=== PATIENT | female | born 1940 | race Caucasian/White ===

== ENCOUNTER 2019-07-01 11:07 | Outpatient (RCR) | payer MEDICARE, SELFPAY ==
[2019-04-28 15:43] LABS: INR 1.9; Prothrombin Time 19.7 Seconds (9.64-11.0)
[2019-05-18 16:43] LABS: INR 3.1; Prothrombin Time 32.1 Seconds (9.64-11.0)
[2019-07-01 11:27] LABS: INR 2.4; Prothrombin Time 25.3 Seconds (9.64-11.0)
== END 2019-07-27 23:59 | disposition home or self-care (01) ==
LOC: CHSLAB 11:07
PROVIDERS: PCP Internal Medicine; Visit Provider Internal Medicine
DX: Z79.01 Long term (current) use of anticoagulants (principal)
CPT/HCPCS: 36415; 81003; 85610; 87086

== ENCOUNTER 2019-08-18 11:23 | Outpatient (CLI) | payer MEDICARE, SELFPAY ==
[2019-08-18 11:36] LABS: Basophils Absolute Auto 0.05 K/mm3 (0.00-0.10); Basophils Percent Auto 0.8 % (0.0-1.0); Eosinophils Absolute Auto 0.19 K/mm3 (0.02-0.50); Eosinophils Percent Auto 3.2 % (1.0-6.0); Hematocrit 43.3 % (35.0-42.0); Hemoglobin 14.1 g/dL (11.7-13.8); Immature Granulocyte Absolute 0.01 K/mm3 (0.00-0.00); Immature Granulocyte Percent A 0.2 % (0.0-0.0); Lymphocytes Absolute Auto 2.07 K/mm3 (1.10-4.50); Lymphocytes Percent Auto 34.4 % (18.0-42.0); Mean Corpuscular HGB Conc 32.6 g/dL (32.0-36.0); Mean Corpuscular Hemoglobin 29.4 pg (27.0-31.0); Mean Corpuscular Volume 90.4 fL (78.0-102.0); Mean Platelet Volume 11.2 fl (9.2-11.8); Monocytes Absolute Auto 0.86 K/mm3 (0.10-0.90); Monocytes Percent Auto 14.3 % (2.0-11.0); Neutrophils Absolute Auto 2.8 K/mm3 (1.7-7.2); Neutrophils Percent Auto 47.1 % (50.0-70.0); Platelet Count Result 212 K/mm3 (150-420); Red Blood Count 4.79 M/mm3 (4.20-5.40); Red Cell Distribution Width 13.9 % (11.6-14.4)
[2019-08-18 11:49] LABS: INR 1.9; Prothrombin Time 19.1 Seconds (9.64-11.0)
[2019-08-18 12:16] LABS: Alanine Aminotransferase 21 U/L (14-59); Albumin Level 3.9 g/dL (3.4-5.0); Alkaline Phosphatase 69 U/L (46-116); Amylase 22 U/L (25-115); Anion Gap 9.6 mmol/L (7-16); Aspartate Amino Transferase 21 U/L (15-37); Bilirubin,Total 0.5 mg/dL (0.00-1.00); Blood Urea Nitrogen 23 mg/dL (7-18); Carbon Dioxide 33 mmol/L (21-32); Chloride 103 mmol/L (98-108); Estimated Glomerular Filt Rate 56; Glucose 102 mg/dL (70-99); Lipase 75 U/L (73-393); Osmolality Calculated 297 mOsm/kg (285-295); Potassium 3.6 mmol/L (3.5-5.1); Sodium 142 mmol/L (136-145); Total Protein 7.5 g/dL (6.4-8.2)
[2019-08-18 12:24] LABS: CRP < 0.2 mg/dL (0.0-0.9)
== END 2019-08-18 11:24 | disposition home or self-care (01) ==
LOC: CHSLAB 11:25
PROVIDERS: PCP Internal Medicine; Visit Provider Internal Medicine
DX: R10.9 Unspecified abdominal pain (principal); M25.50 Pain in unspecified joint; Z79.01 Long term (current) use of anticoagulants
CPT/HCPCS: 36415; 80053; 82150; 83690; 85025; 85610; 86140

== ENCOUNTER 2019-10-25 10:22 | Emergency (ER) | payer MEDICARE, SELFPAY ==
--- NOTE | ~2019-10-25 | XR_ITS ---
XR lumbar spine 2-3V 10/25/2019 11:30 Indication: Sciatica Procedure: 3 views lumbar spine Comparison: No prior studies for comparison. Findings: There is disc narrowing at all lumbar levels, most advanced at L4-5 and L5-S1. Prominent br idging osteophytes anteriorly at T12-L1 through L3-4. No acute fracture or traumatic malalignment. Th ere is mild facet hypertrophy at L4-5 and L5-S1. No evidence for spondylolisthesis. There is atherosc lerosis of the aorta with a stent presumably in the left iliac artery. Impression: 1: Moderate lumbar spondylosis. Reviewed, dictated and finalized at location A. Impression: 1: Moderate lumbar spondylosis.
--- NOTE | ~2019-10-25 | XR_ITS ---
XR hip RT 2V w AP pelvis 10/25/2019 11:29 Indication: Right hip pain Procedure: 3 views right hip Comparison: Comparison to multiple prior studies sequentially, with oldest reviewed study dated 03/19. Findings: Pelvic rings are intact. Sacral foramen are symmetric. No acute fracture or traumatic malal ignment. There is a vascular stent, presumably in the left iliac artery. Mild degenerative changes of the lower lumbar spine and hips. Impression: 1: No acute fracture. Reviewed, dictated and finalized at location A. Impression: 1: No acute fracture.
[2019-10-25] MEDS: KETOROLAC (*BKC) 60 MG/2 ML VIAL IM (11:03)
[2019-10-25 11:06] LABS: Hematocrit 38.2 % (35.0-42.0); Hemoglobin 12.7 g/dL (11.7-13.8); Mean Corpuscular HGB Conc 33.2 g/dL (32.0-36.0); Mean Corpuscular Hemoglobin 29.9 pg (27.0-31.0); Mean Corpuscular Volume 89.9 fL (78.0-102.0); Mean Platelet Volume 11.6 fl (9.2-11.8); Platelet Count Result 164 K/mm3 (150-420); Red Blood Count 4.25 M/mm3 (4.20-5.40); Red Cell Distribution Width 14.1 % (11.6-14.4); White Blood Count 6.3 K/mm3 (4.8-10.8)
[2019-10-25 11:15] VITALS: BP 162/75; PULSE 91; RESP 20; TEMP 36.6; O2SAT 95
[2019-10-25 11:22] LABS: Alanine Aminotransferase 19 U/L (14-59); Albumin Level 3.1 g/dL (3.4-5.0); Alkaline Phosphatase 65 U/L (46-116); Anion Gap 12.3 mmol/L (7-16); Aspartate Amino Transferase 19 U/L (15-37); Bilirubin,Total 0.4 mg/dL (0.00-1.00); Blood Urea Nitrogen 13 mg/dL (7-18); Calcium 8.8 mg/dL (8.5-10.1); Carbon Dioxide 29 mmol/L (21-32); Chloride 103 mmol/L (98-108); Estimated Glomerular Filt Rate > 60; Glucose 118 mg/dL (70-99); Osmolality Calculated 293 mOsm/kg (285-295); Potassium 3.3 mmol/L (3.5-5.1); Sodium 141 mmol/L (136-145); Total Protein 6.3 g/dL (6.4-8.2)
[2019-10-25 11:23] LABS: Prothrombin Time 63.6 Seconds (9.64-11.0)
[2019-10-25 11:25] LABS: INR 6.6
--- NOTE | 2019-10-25 11:34 | ED.EXTPRO ---
HPI - Extremity Problem General Chief complaint: Extremity Problem,Nontraumatic Stated complaint: right leg pain Source: patient Mode of arrival: ambulatory Limitations: no limitations History of Present Illness HPI Narrative: 78-year-old female presents with some right lower extremity pain with some lower back pain has been chronic with no known injuries her current pain level she states is a 10/10, with no known injuries has a history of peripheral vascular disease has a stent femoral artery, has a good brisk pulse on the on the right with good range of motion on the right painful and tender with palpation and movement. Patient has been having increased bruising neuro upper arms and is on Coumadin at3.5mg daily. Complaint: extremity pain Onset (ago): day(s) Pain Consistency: intermittent Location: right and lower extremity Severity scale (1-10): 10 Quality: aching Radiation: none Relieving factors: rest Exacerbating factors: range of motion, weight bearing, walking and palpation Associated symptoms: denies other symptoms Related Data Home Medications Medication Instructions Recorded Confirmed alprazolam 1 mg PO PRN PRN 10/25/19 10/25/19 benazepril 10 mg PO DAILY 10/25/19 10/25/19 escitalopram oxalate 5 mg PO DAILY 10/25/19 10/25/19 triamterene-hydrochlorothiazid 1 cap PO DAILY 10/25/19 10/25/19 warfarin 3.5 mg PO DAILY 10/25/19 10/25/19 Review of Systems Review of Systems: All systems reviewed & are unremarkable except as noted in HPI and below PMFSH Past Medical History Medical History Depression HTN (hypertension) Peripheral vascular disease Family History Family History Other Family history of arthritis Family history of mental disorder Hypertension Social History Social History Smoking status: Never smoker Alcohol intake: current Exam Const: General: no acute distress and alert Orientation/consciousness: patient oriented x3 HENMT: Head: normal to inspection Eyes: Conjunctivae: conjunctivae normal Pupils: Equal, round and reactive pupils present Neck: Neck: normal visual inspection and no lymphadenopathy Chest: Chest palpation & inspection: normal inspection of the chest Resp: Effort & Inspection: normal respiratory effort Auscultation: clear to auscultation bilaterally Cardio: Rate: regular rate Rhythm: regular rhythm GI: GI Palp: Yes Soft to palpation Percussion: Yes normal to percussion : General: Yes no CVA tenderness Skin: Other: bruising Neuro: General: patient oriented x3 and moves all extremities Extrem: General: normal to inspection Other: pain right hip with some leg movement and palpation Psych: Appearance: grossly normal Mental Status: mental status grossly normal Affect: normal affect Attitude: cooperative Thought content: Yes Normal thought content present Course Course Emergency Course: patient received pain medication and states her pain has improved, had an INR that was 6.6 and receive 10 mg of vitamin K subcutaneously. Vital Signs Vital signs: Vital Signs Temperature 36.6 C 10/25/19 11:15 Pulse Rate 91 10/25/19 11:15 Respiratory Rate 10/25/19 11:15 Blood Pressure 162/75 H 10/25/19 11:15 Pulse Oximetry 95 10/25/19 11:15 Temperature 36.6 C 10/25/19 11:15 Pulse Rate 91 10/25/19 11:15 Respiratory Rate 10/25/19 11:15 Blood Pressure 162/75 H 10/25/19 11:15 Pulse Oximetry 95 10/25/19 11:15 MDM - Extremity (Nontraumatic) Lab Data Result diagrams: 10/25/19 11:00 10/25/19 11:00 Labs: Lab Results 10/25/19 10/25/19 10/25/19 Range/Units 11:00 11:00 11:00 WBC 6.3 (4.8-10.8) K/mm3 RBC 4.25 (4.20-5.40) M/mm3 Hgb 12.7 (11.7-13.8) g/dL Hct 38.2 (35.0-42.0) % MCV 89.9 (78.0-102.0) f
[2019-10-25] MEDS: PHYTONADIONE INJ 10 MG/ML AMP SUB-Q (11:41)
[2019-10-25 12:05] VITALS: BP 130/67
== END 2019-10-25 12:07 | disposition home or self-care (01) ==
PROVIDERS: Emergency Provider Emergency Medicine; PCP Internal Medicine
DX: S73.101A Unspecified sprain of right hip, initial encounter (principal); R79.1 Abnormal coagulation profile
CPT/HCPCS: 36415; 72100; 73502; 80053; 85027; 85610; 96374; 99282; 99284; J1885; J3430

== ENCOUNTER 2020-01-15 10:00 | Outpatient (RCR) | payer MEDICARE, SELFPAY ==
[2019-11-02 15:57] LABS: INR 1.6; Prothrombin Time 16.5 Seconds (9.64-11.0)
[2019-12-17 11:12] LABS: INR 4.5; Prothrombin Time 44.3 Seconds (9.64-11.0)
[2020-01-15 10:20] LABS: INR 3.6; Prothrombin Time 35.9 Seconds (9.64-11.0)
== END 2020-01-31 23:59 | disposition home or self-care (01) ==
LOC: CHSLAB 10:00
PROVIDERS: PCP Internal Medicine; Visit Provider Internal Medicine
DX: Z79.01 Long term (current) use of anticoagulants (principal)
CPT/HCPCS: 36415; 85610

== ENCOUNTER 2020-01-29 13:53 | Outpatient (CLI) | payer MEDICARE, SELFPAY ==
--- NOTE | ~2020-01-29 | XR_ITS ---
EXAMINATION: XR foot RT min 3V, XR ankle RT 2V DATE: 01/29/2020 14:30 INDICATION: Diffuse right foot and ankle pain and instability TECHNIQUE: 1. Anteroposterior and mortise views of the right ankle were obtained. 2. Dorsoplantar, oblique and lateral views of the right foot were obtained. COMPARISON: None. FINDINGS: Alignment of the foot and ankle is normal. No fracture identified although sensitivity for nondisplac ed fractures is mildly decreased by prominent diffuse osteopenia. 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 Small Achilles and plantar calcaneal spurs. Small amount o f heterotopic ossification projecting over the Achilles tendon approximately 6 cm proximal to its rosa m caneal insertion which may be related to old trauma. Soft tissues are unremarkable. No ankle joint ef fusion. IMPRESSION: 1. Mild degenerative skeletal changes. No acute osseous abnormality. 2. Diffuse osteopenia. Reviewed, dictated and finalized at location A. IMPRESSION: 1. Mild degenerative skeletal changes. No acute osseous abnormality. 2. Diffuse osteopenia.
== END 2020-01-29 13:54 | disposition home or self-care (01) ==
LOC: CHSIMG 13:56
PROVIDERS: PCP Internal Medicine; Visit Provider Podiatrist
DX: M79.671 Pain in right foot (principal); M25.571 Pain in right ankle and joints of right foot; M25.371 Other instability, right ankle
CPT/HCPCS: 73600; 73630

== ENCOUNTER 2020-02-05 02:24 | Emergency (ER) | payer MEDICARE, SELFPAY ==
[2020-02-05 02:34] VITALS: BP 137/78; PULSE 98; RESP 20; TEMP 36.9; O2SAT 96
--- NOTE | 2020-02-05 02:57 | ED.LOWEXIN ---
HPI - Extremity Injury (Lower) General Chief Complaint: Extremity Injury, Lower Stated Complaint: Right Hip Pain Source: patient Mode of arrival: ambulatory Limitations: no limitations History of Present Illness HPI Narrative: This is an 79-year-old female with chronic hip pain has been seeing pain management for her right hip pain has had some steroid injections in her right hip and knee. Woke up with some right hip pain with no known injury has good range of motion there is some tenderness with palpation no internal or external rotation has good movement good range of motion of the right hip. MD complaint: hip injury Onset (ago): unknown Injury: Right: hip Severity: moderate Severity scale (1-10): 6 Relieving factors: immobilization Exacerbating factors: movement Related Data Home Medications Medication Instructions Recorded Confirmed alprazolam 1 mg PO PRN PRN 10/25/19 02/05/20 benazepril [Lotensin] 10 mg PO DAILY 10/25/19 02/05/20 triamterene-hydrochlorothiazid 1 cap PO DAILY 10/25/19 02/05/20 [Dyazide] warfarin 3 mg PO DAILY 10/25/19 02/05/20 levofloxacin 250 mg PO DAILY 02/05/20 02/05/20 Allergies Allergy/AdvReac Type Severity Reaction Status Date / Time No Known Allergies Allergy Verified 02/05/20 02:30 Review of Systems Review of Systems: All systems reviewed & are unremarkable except as noted in HPI and below PMFSH Social History Social History Smoking status: Never smoker Alcohol intake: current Gender identity (if verbalized by the patient): Female Exam Const: General: no acute distress and alert Orientation/consciousness: patient oriented x3 HENMT: Head: normal to inspection Eyes: Conjunctivae: conjunctivae normal Pupils: Equal, round and reactive pupils present EOM: EOMs intact bilaterally Neck: Neck: normal visual inspection, no lymphadenopathy and no meningeal signs Chest: Chest palpation & inspection: normal inspection of the chest Resp: Effort & Inspection: normal respiratory effort Auscultation: clear to auscultation bilaterally Cardio: Rate: regular rate Rhythm: regular rhythm GI: GI Palp: Yes Soft to palpation Back/Spine/Pelvis: Back: no CVA tenderness Skin: General skin exam: normal color Rashes: no rashes Neuro: General: patient oriented x3, moves all extremities, no meningeal signs and no focal motor deficits Extrem: Other: Right lateral hip tenderness with palpation Psych: Appearance: grossly normal Mental Status: mental status grossly normal Affect: normal affect Course Course Emergency Course: patient receive IM Toradol with some moderate relief Vital Signs Vital signs: Vital Signs Temperature 36.9 C 02/05/20 02:34 Pulse Rate 98 02/05/20 02:34 Respiratory Rate 20 02/05/20 02:34 Blood Pressure 137/78 02/05/20 02:34 Pulse Oximetry 96 02/05/20 02:34 Temperature 36.9 C 02/05/20 02:34 Pulse Rate 98 02/05/20 02:34 Respiratory Rate 20 02/05/20 02:34 Blood Pressure 137/78 02/05/20 02:34 Pulse Oximetry 96 02/05/20 02:34 Critical Care Time Critical Care Time Critical Care Time: No Discharge Plan Discharge Clinical Impression: Chronic hip pain Qualifiers: Laterality: right Qualified Code(s): M25.551 - Pain in right hip Patient Disposition: Home, Self-Care Condition: Stable Instructions: Antibiotic Form Additional Instructions: follow-up with primary care physician / pain management physician as soon as possible further evaluation and treatment. Prescriptions: New oxycodone-acetaminophen [Percocet] 5-325 mg tablet 1 tablet PO Q6H PRN (Reason: pain) Qty: 20 RF: 0 No Action alprazolam 1 mg tablet 1 mg PO PRN PRN (Reason: Anxiety) RF: 0 triamterene-hydrochlorothiazid [Dyazide] 37.5-25 mg capsule 1 cap PO DAILY RF: 0 warfarin 3 mg tablet 3 mg PO DAILY RF: 0 benazepril [Lotensin] 10 mg tablet 10 mg PO
[2020-02-05] MEDS: KETOROLAC (*BKC) 60 MG/2 ML VIAL IM (03:10)
[2020-02-05 03:42] VITALS: BP 120/70; PULSE 86; RESP 20; O2SAT 98
== END 2020-02-05 03:44 | disposition home or self-care (01) ==
PROVIDERS: Emergency Provider Emergency Medicine; PCP Internal Medicine
DX: M25.551 Pain in right hip (principal)
CPT/HCPCS: 96372; 99283; J1885

== ENCOUNTER 2020-04-25 09:20 | Outpatient (RCR) | payer MEDICARE, SELFPAY ==
[2020-02-13 09:19] LABS: INR 2.8; Prothrombin Time 27.9 Seconds (9.64-11.0)
[2020-03-24 10:28] LABS: INR 2.7; Prothrombin Time 26.6 Seconds (9.64-11.0)
[2020-04-25 09:38] LABS: INR 1.5; Prothrombin Time 15.7 Seconds (9.64-11.0)
== END 2020-05-13 23:59 | disposition home or self-care (01) ==
LOC: CHSLAB 09:20
PROVIDERS: PCP Internal Medicine; Visit Provider Internal Medicine
DX: Z79.01 Long term (current) use of anticoagulants (principal)
CPT/HCPCS: 36415; 85610

== ENCOUNTER 2020-05-13 08:33 | Outpatient (CLI) | payer MEDICARE, SELFPAY ==
[2020-05-13 08:44] LABS: Basophils Absolute Auto 0.05 K/mm3 (0.00-0.10); Basophils Percent Auto 0.8 % (0.0-1.0); Eosinophils Absolute Auto 0.11 K/mm3 (0.02-0.50); Eosinophils Percent Auto 1.8 % (1.0-6.0); Hematocrit 41.5 % (35.0-42.0); Hemoglobin 13.4 g/dL (11.7-13.8); Immature Granulocyte Absolute 0.02 K/mm3 (0.00-0.00); Immature Granulocyte Percent A 0.3 % (0.0-0.0); Lymphocytes Percent Auto 41.6 % (18.0-42.0); Mean Corpuscular HGB Conc 32.3 g/dL (32.0-36.0); Mean Platelet Volume 11.4 fl (9.2-11.8); Monocytes Absolute Auto 0.73 K/mm3 (0.10-0.90); Monocytes Percent Auto 12.1 % (2.0-11.0); Neutrophils Absolute Auto 2.6 K/mm3 (1.7-7.2); Neutrophils Percent Auto 43.4 % (50.0-70.0); Platelet Count Result 183 K/mm3 (150-420); Red Blood Count 4.46 M/mm3 (4.20-5.40); Red Cell Distribution Width 13.2 % (11.6-14.4)
[2020-05-13 08:58] LABS: INR 1.9; Partial Thromboplastin Time 32.2 SEC (22.3-31.6); Prothrombin Time 18.9 Seconds (9.64-11.0)
[2020-05-13 09:10] LABS: Add Urine Microscopic? YES; Appearance Urine Clear (Clear); Bacteria Urine 1+ /hpf; Bilirubin Urine Negative (Negative); Blood Urine Negative (Negative); Color Urine Yellow (Yellow); Glucose Urine UA Negative (Negative); Ketones Urine Negative (Negative); Leukocyte Esterase Ur 1+ (Negative); Nitrate Urine Negative (Negative); Protein Urine Negative (Negative); Specific Grav Ur 1.025 (1.010-1.020); Squamous Epithelial Cell Urine Few /hpf (Few); Urobilinogen Urine 0.2 mg/dL (0.2-1.0)
[2020-05-13 09:43] LABS: Alanine Aminotransferase 25 U/L (14-59); Albumin Level 3.1 g/dL (3.4-5.0); Alkaline Phosphatase 55 U/L (46-116); Anion Gap 6 mmol/L (8-16); Aspartate Amino Transferase 15 U/L (15-37); Bilirubin,Total 0.3 mg/dL (0.00-1.00); Blood Urea Nitrogen 14 mg/dL (7-18); Calcium 8.7 mg/dL (8.5-10.1); Carbon Dioxide 32 mmol/L (21-32); Chloride 109 mmol/L (98-108); Estimated Glomerular Filt Rate > 60; Glucose 87 mg/dL (70-99); Osmolality Calculated 303 mOsm/kg (285-295); Potassium 4.5 mmol/L (3.5-5.1); Sodium 147 mmol/L (136-145); Total Protein 6.3 g/dL (6.4-8.2)
== END 2020-05-13 08:34 | disposition home or self-care (01) ==
LOC: CHSLAB 08:34
PROVIDERS: PCP Internal Medicine; Visit Provider Internal Medicine
DX: Z79.01 Long term (current) use of anticoagulants (principal); I10 Essential (primary) hypertension; R82.90 Unspecified abnormal findings in urine
CPT/HCPCS: 36415; 80053; 81001; 84443; 85025; 85610; 85730; 87077; 87086; 87088; 87186

== ENCOUNTER 2020-06-15 11:27 | Outpatient (CLI) | payer MEDICARE, SELFPAY ==
[2020-06-15 11:53] LABS: INR 2.6; Prothrombin Time 27.6 Seconds (9.50-12.10)
[2020-06-15 12:42] LABS: Alanine Aminotransferase 21 U/L (14-59); Albumin Level 3.4 g/dL (3.4-5.0); Alkaline Phosphatase 62 U/L (46-116); Anion Gap 5 mmol/L (8-16); Aspartate Amino Transferase 17 U/L (15-37); Bilirubin,Total 0.4 mg/dL (0.00-1.00); Blood Urea Nitrogen 12 mg/dL (7-18); Calcium 9.1 mg/dL (8.5-10.1); Carbon Dioxide 31 mmol/L (21-32); Chloride 107 mmol/L (98-108); Estimated Glomerular Filt Rate > 60; Glucose 91 mg/dL (70-99); Osmolality Calculated 295 mOsm/kg (285-295); Sodium 143 mmol/L (136-145); Total Protein 6.5 g/dL (6.4-8.2)
== END 2020-06-15 11:28 | disposition home or self-care (01) ==
LOC: CHSLAB 11:29
PROVIDERS: PCP Internal Medicine; Visit Provider Internal Medicine
DX: E87.1 Hypo-osmolality and hyponatremia (principal); Z79.01 Long term (current) use of anticoagulants
CPT/HCPCS: 36415; 80053; 85610

== ENCOUNTER 2020-10-15 11:25 | Emergency (ER) | payer MEDICARE, SELFPAY ==
--- NOTE | ~2020-10-15 | CT_ITS ---
EXAMINATION: CT cervical spine wo con DATE: 10/15/2020 12:21 INDICATION: Head injury. TECHNIQUE: Computed tomography (CT) of the cervical spine was performed without intravenous contrast. Automated exposure control and iterative reconstruction technique were employed. The dose-length pro duct was 454.83 mGy-cm. COMPARISON: None FINDINGS: There is 2 mm anterolisthesis of C3 on C4 and C7 on T1. There is 4 degrees dextrocurvature of cervical spine. Vertebral body heights are normal. There is mildly decreased disc height at C3-C4, moderately decreased disc height at C4-C5, and mildly decreased disc height at C5-C6 and C6-C7. The following disc levels are specifically discussed: C2-C3: There is no uncovertebral joint osteoarthritis. There is moderate right and severe left facet joint osteoarthritis. There is mild left neural foraminal stenosis. There is no central canal stenosi s. C3-C4: There is mild right and severe left uncovertebral joint osteoarthritis. There is moderate righ t and severe left facet joint osteoarthritis. There is moderate left neural foraminal stenosis. There is mild central canal stenosis. C4-C5: There is severe bilateral uncovertebral joint osteoarthritis. There is mild right and moderate left facet joint osteoarthritis. There is moderate right and mild left neural foraminal stenosis. Th ere is mild central canal stenosis. C5-C6: There is severe bilateral uncovertebral joint osteoarthritis. There is moderate right and mild left facet joint osteoarthritis. There is mild bilateral neural foraminal stenosis. There is mild ce ntral canal stenosis. C6-C7: There is severe bilateral uncovertebral joint osteoarthritis. There is mild right and severe l eft facet joint osteoarthritis. There is moderate right and mild left neural foraminal stenosis. Ther e is mild central canal stenosis. C7-T1: There is no uncovertebral joint osteoarthritis. There is severe bilateral facet joint osteoart hritis. There is mild bilateral neural foraminal stenosis. There is no central canal stenosis. IMPRESSION: 1. No fracture. 2. Moderate cervical spondylosis. Reviewed, dictated and finalized at location A.
--- NOTE | ~2020-10-15 | CT_ITS ---
EXAMINATION: CT facial bones wo con DATE: 10/15/2020 12:23 INDICATION: Head injury. TECHNIQUE: Computed tomography (CT) of the facial bones and maxillofacial region was performed withou t intravenous contrast. Automated exposure control and iterative reconstruction technique were employ ed. The dose-length product was 290.42 mGy-cm. COMPARISON: None. FINDINGS: There are likely changes of ocular lens replacement surgeries. There is mild leftward devia tion of the nasal septum. No fracture. The paranasal sinuses are clear. There are lucencies around th e roots of tooth 19 and tooth 28. There are restorations of the crowns of these teeth. IMPRESSION: 1. No fracture. 2. Dental disease. Reviewed, dictated and finalized at location A.
--- NOTE | ~2020-10-15 | XR_ITS ---
EXAMINATION: XR shoulder LT min 2V DATE: 10/15/2020 12:22 INDICATION: Left shoulder injury. TECHNIQUE: 4 views of left shoulder were obtained. COMPARISON: None. FINDINGS: Bone alignment is normal. No fracture. There is mild osteoarthritis of glenohumeral joint a nd moderate osteoarthritis of acromioclavicular joint. IMPRESSION: 1. Polyarticular osteoarthritis. Reviewed, dictated and finalized at location A.
--- NOTE | ~2020-10-15 | CT_ITS ---
EXAMINATION: CT brain wo con DATE: 10/15/2020 12:21 INDICATION: Head injury. TECHNIQUE: Computed tomography (CT) of the head was performed without intravenous contrast. The mA wa s adjusted according to patient size. Iterative reconstruction technique was employed. The dose-lengt h product was 681.00 mGy-cm. COMPARISON: Head CT 12/04/2017 FINDINGS: There are scattered areas of low attenuation in the cerebral white matter. There is no intr acranial hemorrhage, acute infarction, or abnormal intracranial mass lesion. The ventricles are mak l in size. There are likely changes of ocular lens replacement surgeries. The paranasal sinuses are c lear. The mastoid air cells are normal. IMPRESSION: 1. Stable moderate nonspecific cerebral white matter disease, which likely represents chronic small v essel ischemic disease. Reviewed, dictated and finalized at location A. IMPRESSION: 1. Stable moderate nonspecific cerebral white matter disease, which likely repr esents chronic small vessel ischemic disease.
[2020-10-15 11:45] VITALS: BP 143/75; PULSE 71; RESP 18; TEMP 36.4; O2SAT 96
--- NOTE | 2020-10-15 12:32 | ED.FALL ---
HPI - Fall General Chief Complaint: Fall Stated Complaint: Fall, L ear, L arm and L hip pain Source: patient Mode of arrival: ambulatory Limitations: no limitations History of Present Illness HPI Narrative: this an 79-year-old female that presents after she fell at home earlier today after she went outside to get her mail as she stepped in to the how she lost her balance and struck the side of her head causing some ear pain with some some neck pain along with some left shoulder pain. The patient did not lose consciousness there is no dizziness no syncopal episode no palpitations no chest pain no shortness of breath. The patient states that she has some mild to moderate left ear pain with no bleeding and she states that she is having some left shoulder pain but has good range of motion in her neck and her arm and shoulder with no bruising no bleeding and good range of motion. complaint: fall Onset (ago): hour(s) Fall from: standing Fall witnessed: no Place fall occurred: home Loss of consciousness: none Prolonged down time: no Symptoms prior to fall: other ( pain) Context: tripped/slipped Location of injury: head and other ( left shoulder) Location of injury - extremities: Left: shoulder Related Data Home Medications Medication Instructions Recorded Confirmed alprazolam 1 mg PO PRN PRN 10/25/19 10/15/20 benazepril [Lotensin] 10 mg PO DAILY 10/25/19 10/15/20 warfarin 3 mg PO DAILY 10/25/19 10/15/20 aspirin [Adult Aspirin] 81 mg PO DAILY 10/15/20 10/15/20 furosemide 20 mg PO DAILY 10/15/20 10/15/20 rosuvastatin 10 mg PO DAILY 10/15/20 10/15/20 Allergies Allergy/AdvReac Type Severity Reaction Status Date / Time prednisone AdvReac Dizziness Verified 10/15/20 11:41 Review of Systems Review of Systems: All systems reviewed & are unremarkable except as noted in HPI and below PMFSH Past Medical History Medical History (Updated 10/15/20 @ 12:57 by Christofer Huizar MD) Depression HTN (hypertension) Peripheral vascular disease Family History Family History Other Family history of arthritis Family history of mental disorder Hypertension Social History Social History Smoking status: Never smoker Alcohol intake: current Gender identity (if verbalized by the patient): Female Exam Const: General: no acute distress and alert Orientation/consciousness: patient oriented x3 HENMT: Head: normal to inspection Face and sinus: normal facial exam Eyes: Conjunctivae: conjunctivae normal Pupils: Equal, round and reactive pupils present EOM: EOMs intact bilaterally Direct Ophthalmoscopy: no photophobia Neck: Neck: normal visual inspection, no lymphadenopathy and no meningeal signs Chest: Chest palpation & inspection: normal inspection of the chest Resp: Effort & Inspection: normal respiratory effort Auscultation: clear to auscultation bilaterally Cardio: Rate: regular rate Rhythm: regular rhythm GI: Auscultation: normal bowel sounds : General: Yes no CVA tenderness Back/Spine/Pelvis: Back: no CVA tenderness Neuro: General: patient oriented x3 and moves all extremities Extrem: General: normal to inspection and no pedal edema Psych: Mental Status: mental status grossly normal Affect: normal affect Attitude: cooperative Thought content: Yes Normal thought content present Course Course Emergency Course: X-rays reviewed with patient after reassessment patient is doing better and advised to follow-up with her primary care physician within 1 to 2 weeks for further evaluation and treatment. Vital Signs Vital signs: Vital Signs Temperature 36.4 C L 10/15/20 11:45 Pulse Rate 71 10/15/20 11:45 Respiratory Rate 18 10/15/20 11:45 Blood Pressure 143/75 H 10/15/20 11:45 Pulse Oximetry 96 10/15/20 11:45 Temperature 36.4 C L 10/15/20 11:45 Pulse Rate 71 10/15/20 1
== END 2020-10-15 13:06 | disposition home or self-care (01) ==
PROVIDERS: Emergency Provider Emergency Medicine; PCP Internal Medicine
DX: S40.022A Contusion of left upper arm, initial encounter (principal); W19.XXXA Unspecified fall, initial encounter
CPT/HCPCS: 70450; 70486; 72125; 73030; 99282; 99284

== ENCOUNTER 2020-10-18 13:27 | Outpatient (RCR) | payer MEDICARE, SELFPAY ==
[2020-07-22 15:37] LABS: INR 2.4; Prothrombin Time 24.7 Seconds (9.50-12.10)
[2020-08-30 13:14] LABS: INR 1.9
[2020-10-18 13:47] LABS: Prothrombin Time 20.3 Seconds (9.50-12.10)
== END 2020-10-20 23:59 | disposition home or self-care (01) ==
LOC: CHSLAB 13:27
PROVIDERS: PCP Internal Medicine; Visit Provider Internal Medicine
DX: Z79.01 Long term (current) use of anticoagulants (principal)
CPT/HCPCS: 36415; 85610

== ENCOUNTER 2020-10-30 17:04 | Emergency (ER) | payer MEDICARE, SELFPAY ==
--- NOTE | ~2020-10-30 | XR_ITS ---
EXAMINATION: XR chest 1V portable DATE: 10/30/2020 18:30 INDICATION: Weakness. TECHNIQUE: A single frontal view of the chest was obtained. COMPARISON: Chest 2 views 02/13/2019 FINDINGS: There is mild atelectasis in the lower lung zones. No pleural effusion or pneumothorax. The heart size is normal. IMPRESSION: 1. Mild atelectasis in the lower lung zones. Reviewed, dictated and finalized at location A.
--- NOTE | ~2020-10-30 | CT_ITS ---
EXAMINATION: CT brain wo con DATE: 10/30/2020 18:28 INDICATION: Weakness. TECHNIQUE: Computed tomography (CT) of the head was performed without intravenous contrast. The mA wa s adjusted according to patient size. Iterative reconstruction technique was employed. The dose-lengt h product was 681.00 mGy-cm. COMPARISON: Head CT 10/15/2020 FINDINGS: There are scattered areas of low attenuation in the cerebral white matter. There is no intr acranial hemorrhage, acute infarction, or abnormal intracranial mass lesion. The ventricles are mak l in size. There is mild mucosal thickening in the ethmoid sinuses. There are likely changes of ocula r lens replacement surgeries. The mastoid air cells are normal. IMPRESSION: 1. Stable moderate nonspecific cerebral white matter disease, which likely represents chronic small v essel ischemic disease. Reviewed, dictated and finalized at location A. IMPRESSION: 1. Stable moderate nonspecific cerebral white matter disease, which likely repr esents chronic small vessel ischemic disease.
--- NOTE | ~2020-10-30 | CT_ITS ---
EXAMINATION: CT abdomen pelvis w con DATE: 10/30/2020 18:29 INDICATION: Left lower quadrant abdominal pain. TECHNIQUE: Computed tomography (CT) of the abdomen and pelvis was performed with 100 mL Omnipaque 350 intravenous contrast. Automated exposure control and iterative reconstruction technique were employe d. The dose-length product was 684.58 mGy-cm. COMPARISON: CT abdomen and pelvis 04/28/2019 FINDINGS: The visualized portions of the lung bases demonstrate mild atelectasis. No pleural effusion . The heart size is normal. There are coronary artery calcifications. There are calcifications of the aortic valve. No pericardial effusion. The liver, gallbladder, spleen, pancreas, and adrenal glands are normal. There is cortical thinning of the kidneys. There is a 3.7 cm cyst in right kidney. There is a totally occluded stent in left common iliac vein and inferior vena cava, stable from 04/28/19. 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 There is diverticulosis of the colon with out evidence of diverticulitis. The appendix is not visualized. There are no pathologically enlarged lymph nodes. There is no free intraperitoneal fluid. There is severe lumbar spondylosis. IMPRESSION: 1. No specific etiology for the patient's symptoms. Reviewed, dictated and finalized at location A.
[2020-10-30 17:05] VITALS: BP 129/73; PULSE 94; RESP 20; TEMP 36.8; O2SAT 93
--- NOTE | 2020-10-30 17:23 | ED.ABDPAIN ---
HPI - Abdominal Pain General Chief Complaint: Weakness Stated Complaint: ambulance Time Seen by Provider: 10/30/20 17:10 Source: patient Mode of arrival: ambulatory Limitations: no limitations History of Present Illness HPI narrative: Linda is brought in by ems. She complains of pain in LLQ for at least a week, states it has been more severe the last two days. Pain is dull, moderately severe to severe in left lower back, and also midline in the low back, with radiation around to left lower abdomen. This has been ongoing. She states she has a lot of chronic pain in her back, but this is much worse than normal. Nothing has decreased the left flank /side pain, or made her feel better. The back pain seems to a factor limiting her activity. There is no know precipitating cause. She also complains of weakness, generalized, but more severe in left leg ongoing for quite some time. She lives in her own home. She was given physical therapy in the past for this weakness, which seemed to help some. She is worried she may have had some bleeding from the Coumadin, after a fall, and requests evaluation for that, although she was seen for this. She denies any fever, chills, cough or symptoms of a urinary infection. Related Data Home Medications Medication Instructions Recorded Confirmed alprazolam 1 mg PO PRN PRN 10/25/19 10/30/20 benazepril [Lotensin] 10 mg PO DAILY 10/25/19 10/30/20 warfarin 3 mg PO DAILY 10/25/19 10/30/20 aspirin [Adult Aspirin] 81 mg PO DAILY 10/15/20 10/30/20 furosemide 20 mg PO DAILY 10/15/20 10/30/20 rosuvastatin 10 mg PO DAILY 10/15/20 10/30/20 Allergies Allergy/AdvReac Type Severity Reaction Status Date / Time prednisone AdvReac Dizziness Verified 10/15/20 11:41 Review of Systems Constitutional: Constitutional: Reports fatigue and Reports weakness Eyes: Eyes: Reports no additional eye complaints ENT: Reports system reviewed and no additional complaints, except as documented Cardiovascular: Cardiovascular: Reports no additional cardiovascular complaints Respiratory: Respiratory: Reports no additional respiratory complaints Gastrointestinal: Gastrointestinal: Reports no additional gastrointestinal complaints Genitourinary: Genitourinary: Reports no additional female genitourinary complaints Musculoskeletal: Comments: Low back pain Integumentary/Breasts: Skin/Breast: Reports system reviewed and no additional complaints, except as docu Neurologic: Reports system reviewed and no additional complaints, except as documented Psychiatric: Psychiatric: Reports no additional psychiatric complaints Endocrine: Endocrine: Reports no additional endocrine complaints Hematologic/Lymphatic: Hematologic/Lymphatic: Reports no additional hematologic/lymphatic complaints Allergic/Immunologic: Allergic/Immunologic: Reports no additional allergic/immunologic complaints PMFSH Past Medical History Medical History CAD (coronary artery disease) Depression DVT (deep venous thrombosis) HTN (hypertension) IBS (irritable bowel syndrome) Peripheral vascular disease Polio Surgical History Surgical History (Updated 10/31/20 @ 07:29 by Valentin Lucas MD) H/O: hysterectomy Stented coronary artery Family History Family History Other Family history of arthritis Family history of mental disorder Hypertension Social History Social History Smoking status: Never smoker Alcohol intake: current Gender identity (if verbalized by the patient): Female Exam Const: General: alert Orientation/consciousness: patient oriented x3 HENMT: Head: normal to inspection Ears: external ears normal and TM's normal bilaterally Mouth: Yes Normal oral and palatal mucosa present Throat: posterior oropharynx normal Eyes: Conjunctivae: conjunctivae normal Neck:
[2020-10-30 17:37] LABS: Basophils Absolute Auto 0.06 K/mm3 (0.00-0.10); Basophils Percent Auto 0.5 % (0.0-1.0); Eosinophils Absolute Auto 0.01 K/mm3 (0.02-0.50); Eosinophils Percent Auto 0.1 % (1.0-6.0); Hematocrit 39.7 % (35.0-42.0); Hemoglobin 13.2 g/dL (11.7-13.8); Immature Granulocyte Absolute 0.04 K/mm3 (0.00-0.00); Immature Granulocyte Percent A 0.4 % (0.0-0.0); Lymphocytes Absolute Auto 1.79 K/mm3 (1.10-4.50); Lymphocytes Percent Auto 16.1 % (18.0-42.0); Mean Corpuscular HGB Conc 33.2 g/dL (32.0-36.0); Mean Corpuscular Hemoglobin 29.5 pg (27.0-31.0); Mean Corpuscular Volume 88.8 fL (78.0-102.0); Mean Platelet Volume 10.7 fl (9.2-11.8); Monocytes Absolute Auto 1.25 K/mm3 (0.10-0.90); Monocytes Percent Auto 11.2 % (2.0-11.0); Neutrophils Percent Auto 71.7 % (50.0-70.0); Platelet Count Result 152 K/mm3 (150-420); Red Blood Count 4.47 M/mm3 (4.20-5.40); Red Cell Distribution Width 12.8 % (11.6-14.4); White Blood Count 11.1 K/mm3 (4.8-10.8)
[2020-10-30 17:49] LABS: Alanine Aminotransferase 21 U/L (14-59); Albumin Level 3.1 g/dL (3.4-5.0); Alkaline Phosphatase 48 U/L (46-116); Anion Gap 12 mmol/L (8-16); Aspartate Amino Transferase 16 U/L (15-37); Bilirubin,Total 0.9 mg/dL (0.00-1.00); Blood Urea Nitrogen 18 mg/dL (7-18); Calcium 8.8 mg/dL (8.5-10.1); Carbon Dioxide 25 mmol/L (21-32); Chloride 99 mmol/L (98-108); Estimated CRCL calculation 34 ml/min; Estimated Glomerular Filt Rate 50; Glucose 98 mg/dL (70-99); Osmolality Calculated 283 mOsm/kg (285-295); Potassium 3.7 mmol/L (3.5-5.1); Sodium 136 mmol/L (136-145); Total Protein 7.4 g/dL (6.4-8.2)
[2020-10-30 17:54] LABS: Lactic Acid Reflex 1.3 mmol/L (0.4-2.0)
[2020-10-30 17:59] LABS: Lipase 51 U/L (73-393)
--- NOTE | 2020-10-30 18:00 | PC.NURSE ---
pt resting per cot, daughter at bedside. unable to urinate at this time
[2020-10-30 18:16] LABS: Magnesium 1.5 mg/dL (1.8-2.4)
[2020-10-30 18:21] LABS: INR 1.5; Partial Thromboplastin Time 28.3 SEC (23.90-30.70); Prothrombin Time 15.7 Seconds (9.50-12.10)
[2020-10-30 18:36] LABS: Erythrocyte Sedimentation Rate 44 mm/hr (0-20)
[2020-10-30 18:39] LABS: Add Urine Microscopic? YES; Bilirubin Urine Negative (Negative); Blood Urine Negative (Negative); Color Urine Yellow (Yellow); Glucose Urine UA Negative (Negative); Ketones Urine 2+ (Negative); Leukocyte Esterase Ur Negative (Negative); Nitrate Urine Negative (Negative); Protein Urine Negative (Negative); Urobilinogen Urine 0.2 mg/dL (0.2-1.0)
[2020-10-30 18:42] LABS: Appearance Urine Sl Cloudy (Clear); Bacteria Urine Trace /hpf; RBC Urine None seen /hpf (0-2); Squamous Epithelial Cell Urine Moderate /hpf (Few); WBC Urine None seen /hpf (0-3)
--- NOTE | 2020-10-30 19:10 | PC.NURSE ---
1900 pt incontinent of urine, skin care given, pull up brief applied per pt request. gown and linen changed
[2020-10-30 19:17] VITALS: BP 121/68; PULSE 86; RESP 20; O2SAT 94
[2020-10-30] MEDS: DEXAMETHASONE SOD PHOS INJ 4 MG/ML VIAL IV PUSH (19:25)
[2020-10-30] MEDS: MAGNESIUM SULF 2 GM/WATER 50ML 2 GM/50 ML BAG IVPB (19:25)
[2020-10-30] MEDS: CEPHALEXIN 500 MG CAPSULE PO (19:32)
[2020-10-30 20:03] VITALS: BP 130/73; PULSE 73; RESP 20; TEMP 36.9; O2SAT 94
== END 2020-10-30 20:22 | disposition home or self-care (01) ==
PROVIDERS: Emergency Provider Emergency Medicine; PCP Internal Medicine
DX: M54.9 Dorsalgia, unspecified (principal); E83.42 Hypomagnesemia; J98.11 Atelectasis; R53.1 Weakness
CPT/HCPCS: 36415; 70450; 71045; 74177; 80053; 81001; 83605; 83690; 83735; 85025; 85610; 85652; 85730; 96365; 96375; 99283; 99284; A9270; J1100; J3475; Q9967

== ENCOUNTER 2021-01-24 01:56 | Observation (INO) | payer MEDICARE, SELFPAY ==
[2021-01-24] VITALS (7 sets, daily range): BP systolic 130–174; BP diastolic 64–85; PULSE 75–103; RESP 16–20; TEMP 36.6–37.9; O2SAT 90–94; BMI 25.7
--- NOTE | 2021-01-24 02:07 | ED.WEAKNESS ---
HPI - Weakness General Chief complaint: Fall Stated complaint: Fall Time Seen by Provider: 01/24/21 02:00 History of Present Illness HPI Narrative: 80-year-old female patient is brought to the ER by EMS the with complaints of weakness. The patient apparently had a Botox injection done to the bladder for incontinence on December 19 and since then she has apparently been feeling progressively weak and having frequent falls. Deny the patient was trying to get out of the bed to her bathroom and slipped out of the bed and was unable to get up again. She does state that she does not drink enough liquids because she is constantly leaking and tries to keep herself from soaking her clothes too much. Patient apparently has been on antibiotic and states that yesterday she was called by the hospital and told her that the antibiotic was not the right choice for her infection and she has stopped that. Patient also admits to getting frequent urinary tract infections since she has had the Botox injections for the last 5 years. She denies any nausea vomiting. She denies any diarrhea. She denies any urinary burning. Related Data Home Medications Medication Instructions Recorded Confirmed alprazolam 1 mg PO PRN PRN 10/25/19 01/24/21 benazepril [Lotensin] 10 mg PO DAILY 10/25/19 01/24/21 warfarin 3 mg PO DAILY 10/25/19 01/24/21 aspirin [Adult Aspirin] 81 mg PO DAILY 10/15/20 01/24/21 furosemide 20 mg PO DAILY 10/15/20 01/24/21 rosuvastatin 10 mg PO DAILY 10/15/20 01/24/21 Allergies Allergy/AdvReac Type Severity Reaction Status Date / Time prednisone AdvReac Dizziness Verified 10/15/20 11:41 Review of Systems Review of Systems: All systems reviewed & are unremarkable except as noted in HPI and below PMFSH Past Medical History Medical History CAD (coronary artery disease) Depression DVT (deep venous thrombosis) HTN (hypertension) IBS (irritable bowel syndrome) Peripheral vascular disease Polio Surgical History Surgical History H/O: hysterectomy Stented coronary artery Family History Family History Other Family history of arthritis Family history of mental disorder Hypertension Social History Social History Smoking status: Never smoker Alcohol intake: current Gender identity (if verbalized by the patient): Female Exam Const: General: no acute distress, alert and ill appearing (mild) Orientation/consciousness: patient oriented x3 HENMT: Head: normal to inspection Ears: external ears normal Mouth: Yes dry mucous membranes Eyes: Conjunctivae: conjunctivae normal Pupils: Equal, round and reactive pupils present EOM: EOMs intact bilaterally Neck: Neck: normal visual inspection and no lymphadenopathy Chest: Chest palpation & inspection: normal inspection of the chest Resp: Effort & Inspection: normal respiratory effort Auscultation: clear to auscultation bilaterally Cardio: Rate: regular rate Rhythm: regular rhythm GI: GI Palp: Yes Soft to palpation, No Tenderness to palpation present (GI), No Guarding due to palpation present (GI), No Rigid due to palpation, No Hernia present and No Palpable mass present Percussion: Yes normal to percussion Auscultation: normal bowel sounds : General: Yes no CVA tenderness Back/Spine/Pelvis: Back: no CVA tenderness Skin: General skin exam: normal color Rashes: no rashes Neuro: General: patient oriented x3, moves all extremities, no focal motor deficits and CN's II-XI intact bilaterally Cranial nerves: Yes Nystagmus not present Speech: normal speech Extrem: General: normal to inspection and no edema Psych: Appearance: grossly normal Mental Status: mental status grossly normal Affect: Anxious affect present Thought content: Yes Normal thought content present
[2021-01-24 02:22] LABS: Basophils Absolute Auto 0.08 K/mm3 (0.00-0.10); Eosinophils Absolute Auto 0.06 K/mm3 (0.02-0.50); Eosinophils Percent Auto 0.8 % (1.0-6.0); Hematocrit 44.4 % (35.0-42.0); Hemoglobin 14.6 g/dL (11.7-13.8); Immature Granulocyte Absolute 0.02 K/mm3 (0.00-0.00); Immature Granulocyte Percent A 0.3 % (0.0-0.0); Lymphocytes Absolute Auto 1.64 K/mm3 (1.10-4.50); Lymphocytes Percent Auto 21.5 % (18.0-42.0); Mean Corpuscular HGB Conc 32.9 g/dL (32.0-36.0); Mean Corpuscular Hemoglobin 30.2 pg (27.0-31.0); Mean Corpuscular Volume 91.9 fL (78.0-102.0); Mean Platelet Volume 11.3 fl (9.2-11.8); Monocytes Absolute Auto 1.04 K/mm3 (0.10-0.90); Monocytes Percent Auto 13.6 % (2.0-11.0); Neutrophils Absolute Auto 4.8 K/mm3 (1.7-7.2); Neutrophils Percent Auto 62.8 % (50.0-70.0); Platelet Count Result 187 K/mm3 (150-420); Red Blood Count 4.83 M/mm3 (4.20-5.40); Red Cell Distribution Width 12.8 % (11.6-14.4); White Blood Count 7.6 K/mm3 (4.8-10.8)
[2021-01-24 02:23] LABS: Add Urine Microscopic? NO; Appearance Urine Clear (Clear); Bilirubin Urine Negative (Negative); Blood Urine Negative (Negative); Color Urine Light Yellow (Yellow); Glucose Urine UA Negative (Negative); Ketones Urine Negative (Negative); Leukocyte Esterase Ur Negative (Negative); Nitrate Urine Negative (Negative); Protein Urine Negative (Negative); Specific Grav Ur 1.015 (1.010-1.020); Urobilinogen Urine 0.2 mg/dL (0.2-1.0)
[2021-01-24] MEDS: SODIUM CHLORIDE 0.9% IV 500 ML 999 ML IV CONT (02:23)
[2021-01-24 02:37] LABS: Alanine Aminotransferase 23 U/L (14-59); Albumin Level 3.5 g/dL (3.4-5.0); Alkaline Phosphatase 56 U/L (46-116); Anion Gap 13 mmol/L (8-16); Aspartate Amino Transferase 17 U/L (15-37); Bilirubin,Total 0.7 mg/dL (0.00-1.00); Blood Urea Nitrogen 17 mg/dL (7-18); Calcium 8.8 mg/dL (8.5-10.1); Carbon Dioxide 25 mmol/L (21-32); Chloride 101 mmol/L (98-108); Estimated CRCL calculation 35 ml/min; Estimated Glomerular Filt Rate 55; Glucose 103 mg/dL (70-99); Magnesium 1.9 mg/dL (1.8-2.4); Osmolality Calculated 289 mOsm/kg (285-295); Potassium 3.8 mmol/L (3.5-5.1); Sodium 139 mmol/L (136-145); Total Protein 7.2 g/dL (6.4-8.2)
--- NOTE | 2021-01-24 03:39 | ADMGEN ---
This patient, Linda Garza, was admitted to 2nd Floor Room 201-1. Patient/family oriented to hospital policies and general routines including ID bracelet, bed and alarms, visiting hours, pain management, procedures, bathroom and other care routines, personal items, smoking policy, room service/diet, and visiting hours. Information on how to activate the Rapid Response Team has been discussed. Patient/Family are encouraged to report perceived risks to care and to ask questions if they do not understand what they are told or what they should do.
[2021-01-24] MEDS: SODIUM CHLORIDE 0.9% IV 1,000 ML 100 ML IV CONT (03:49)
[2021-01-24 05:46] LABS: INR 1.5; Prothrombin Time 15.6 Seconds (9.50-12.10)
[2021-01-24] MEDS: ROSUVASTATIN 10 MG TABLET PO (09:16)
[2021-01-24] MEDS: ASPIRIN 81 MG ENTERIC TABLET PO (09:16)
[2021-01-24] MEDS: lisinopriL 10 MG TABLET PO (09:16)
[2021-01-24] MEDS: FUROSEMIDE 20 MG TABLET PO (09:16)
[2021-01-24] MEDS: ACETAMINOPHEN 325 MG TABLET 650 MG PO (09:16)
--- NOTE | 2021-01-24 16:32 | PM.SD2 ---
Same Day Admit/Disch: HPI History of Present Illness Chief complaint: WEAKNESS <SAIRA Zapata - Last Filed: 01/24/21 16:52> Narrative: Linda Garza is a 80 year old female who was placed in Observation for Generalized Weakness. Pt states she recently had Botox injection at the end of November. She states about 2 weeks later she started feeling weak to the point she fell. Pt does not complain of any pain. She states she was also treated for a UTI. I contacted Dr. Nava and discussed possibility of Botox related weakness. Dr. Nava called me back later to inform me a urine culture he requested resulted positive for Enterococcus faecalis. He has already called in Nitrofurantoin to her pharmacy. Pt was able to get up with minimal 1 person assist this afternoon and walked about 30 feet and turned around and walked back to her bed. <SAIRA Zapata - Last Filed: 01/24/21 16:52> [facility] Past Medical History Medical History: Medical History (Updated 01/24/21 @ 16:42 by SAIRA Zapata) Achilles tendon pain CAD (coronary artery disease) Depression DVT (deep venous thrombosis) HTN (hypertension) IBS (irritable bowel syndrome) Left leg weakness Peripheral vascular disease Polio Post-polio syndrome Right foot pain <SAIRA Zapata - Last Filed: 01/24/21 16:52> Surgical History Surgical History: Surgical History H/O: hysterectomy Stented coronary artery <SAIRA Zapata - Last Filed: 01/24/21 16:52> Family History Family History: Family History Other Family history of arthritis Family history of mental disorder Hypertension <SAIRA Zapata - Last Filed: 01/24/21 16:52> Social History Social History: Social History Smoking status: Never smoker Alcohol intake: current Drinks per week: 1 Substance use: never Gender identity (if verbalized by the patient): Female Sexual Orientation (if Verbalized by the Patient): Straight or Heterosexual Spiritual care concerns: No <SAIRA Zapata - Last Filed: 01/24/21 16:52> Same Day Admit/Disch: Med Pre-admit Medications Home Medications: Home Medications Medication Instructions Recorded Confirmed Type alprazolam 1 mg PO PRN PRN 10/25/19 01/24/21 History benazepril [Lotensin] 10 mg PO DAILY 10/25/19 01/24/21 History warfarin 3 mg PO DAILY 10/25/19 01/24/21 History aspirin 81 mg PO DAILY 10/15/20 01/24/21 History furosemide 20 mg PO DAILY 10/15/20 01/24/21 History rosuvastatin 10 mg PO DAILY 10/15/20 01/24/21 History dexamethasone 4 mg PO DAILY #4 tablet 10/30/20 01/24/21 Rx <SAIRA Zapata - Last Filed: 01/24/21 16:52> Exam Const: General: cooperative, comfortable and no acute distress <NI ZpaataC - Last Filed: 01/24/21 16:52> Nutritional Appearance: average body habitus <SAIRA Zapata - Last Filed: 01/24/21 16:52> Resp: Effort & Inspection: normal respiratory effort <SAIRA Zapata - Last Filed: 01/24/21 16:52> Auscultation: clear to auscultation bilaterally <SAIRA Zapata - Last Filed: 01/24/21 16:52> Cardio: Rate: regular rate <SAIRA Zapata - Last Filed: 01/24/21 16:52> Heart sounds: S1 normal heart sound present and S2 normal heart sound present <SAIRA Zapata - Last Filed: 01/24/21 16:52> GI: GI Palp: Yes Soft to palpation and No Tenderness to palpation present (GI) <SAIRA Zapata - Last Filed: 01/24/21 16:52> Auscultation: normal bowel sounds <SAIRA Zapata - Last Filed: 01/24/21 16:52> Skin: General skin exam: normal color and dry skin <SAIRA Zapata - Last Filed: 01/24/21 16:52> Neuro: General: oriented to person, oriented to place and oriented to time <SAIRA Zapata - Last Filed
[2021-01-24] MEDS: WARFARIN (*PBKC) 1 MG TABLET 3 MG PO (16:37)
--- NOTE | 2021-01-24 18:30 | PC.NURSE ---
Patient discharged home transported by friend via personal vehicle. All belongings taken with patient and was taken to main entrance via WC per staff and assisted into vehicle. IV site discontinued and removed prior to discharge.
== END 2021-01-24 18:30 | disposition home health service (06) ==
LOC: CHSED 02:50 → CHS2ND 07:27
PROVIDERS: Admitting Provider Emergency Medicine; Emergency Provider Emergency Medicine; PCP Internal Medicine; Visit Provider Emergency Medicine
DX: R53.1 Weakness (principal); I25.10 Atherosclerotic heart disease of native coronary artery without angina pectoris; I10 Essential (primary) hypertension; I73.9 Peripheral vascular disease, unspecified; K58.9 Irritable bowel syndrome, unspecified; R32 Unspecified urinary incontinence; R29.6 Repeated falls; F32.9 Major depressive disorder, single episode, unspecified; Z87.440 Personal history of urinary (tract) infections; Z79.899 Other long term (current) drug therapy; Z79.01 Long term (current) use of anticoagulants; Z86.12 Personal history of poliomyelitis; Z86.718 Personal history of other venous thrombosis and embolism
CPT/HCPCS: 36415; 80053; 81003; 83735; 85025; 85610; 96360; 96361; 97161; 97165; 97535; 99285; A9270; G0378; J7030; J7040

== ENCOUNTER 2021-02-13 20:17 | Emergency (ER) | payer MEDICARE, SELFPAY ==
[2021-02-13 20:25] VITALS: BP 180/85; PULSE 100; RESP 20; TEMP 36.1; O2SAT 96
[2021-02-13 20:42] LABS: Add Urine Microscopic? NO; Appearance Urine Clear (Clear); Bilirubin Urine Negative (Negative); Blood Urine Negative (Negative); Color Urine Light Yellow (Yellow); Glucose Urine UA Negative (Negative); Ketones Urine Negative (Negative); Leukocyte Esterase Ur Negative (Negative); Nitrate Urine Negative (Negative); Protein Urine Negative (Negative); Urobilinogen Urine 0.2 mg/dL (0.2-1.0); pH Urine 7.5 (5.0-8.0)
--- NOTE | 2021-02-13 20:54 | ED.FEVER ---
HPI - Fever General Chief Complaint: Urogenital-Female Stated Complaint: runny nose, cough, possible bladder infection Time Seen by Provider: 02/13/21 20:20 Source: patient Mode of arrival: ambulatory Limitations: no limitations History of Present Illness HPI Narrative: this is an 80-year-old female with history of hypertension and hyper lipidemia presents with concerns for urinary tract infection she was recently treated, currently having some nasal congestion with nonproductive cough low-grade fevers with no shortness of breath patient has had a COVID vaccine and lives at home by herself with no sick contacts. Currently no dysuria no flank pain no nausea vomiting no abdominal pain. MD elicited complaint: fever Onset (ago): day(s) Exacerbating factors: nothing Relieving factors: nothing Associated symptoms: nasal congestion and cough Related Data Home Medications Medication Instructions Recorded Confirmed alprazolam 1 mg PO PRN PRN 10/25/19 02/13/21 benazepril [Lotensin] 10 mg PO DAILY 10/25/19 02/13/21 warfarin 3 mg PO DAILY 10/25/19 02/13/21 aspirin 81 mg PO DAILY 10/15/20 02/13/21 furosemide 20 mg PO DAILY 10/15/20 02/13/21 rosuvastatin 10 mg PO DAILY 10/15/20 02/13/21 Allergies Allergy/AdvReac Type Severity Reaction Status Date / Time prednisone AdvReac Dizziness Verified 10/15/20 11:41 Review of Systems Review of Systems: All systems reviewed & are unremarkable except as noted in HPI and below PMFSH Past Medical History Medical History Achilles tendon pain CAD (coronary artery disease) Depression DVT (deep venous thrombosis) HTN (hypertension) IBS (irritable bowel syndrome) Left leg weakness Peripheral vascular disease Polio Post-polio syndrome Right foot pain Surgical History Surgical History H/O: hysterectomy Stented coronary artery Family History Family History Other Family history of arthritis Family history of mental disorder Hypertension Social History Social History Smoking status: Never smoker Alcohol intake: current Drinks per week: 1 Substance use: never Gender identity (if verbalized by the patient): Female Spiritual care concerns: No Exam Const: General: no acute distress Orientation/consciousness: patient oriented x3 HENMT: Head: normal to inspection and contusion Eyes: Conjunctivae: conjunctivae normal Pupils: Equal, round and reactive pupils present Neck: Neck: normal visual inspection, no lymphadenopathy and no meningeal signs Chest: Chest palpation & inspection: normal inspection of the chest Resp: Effort & Inspection: normal respiratory effort Cardio: Rate: regular rate Rhythm: regular rhythm GI: GI Palp: Yes Soft to palpation : General: Yes no CVA tenderness Skin: General skin exam: normal color Neuro: General: patient oriented x3 Extrem: General: normal to inspection and no pedal edema Psych: Mental Status: mental status grossly normal Affect: normal affect Attitude: cooperative Course CORPORATE LEGAL MANAGER/PA Physician Supervision Patient doing well after re-evaluation there is no fever patient was given a dose of Zithromax prior to discharge. Vital Signs Vital signs: Vital Signs Temperature 36.1 C L 02/13/21 20:25 Pulse Rate 100 02/13/21 20:25 Respiratory Rate 20 02/13/21 20:25 Blood Pressure 180/85 H 02/13/21 20:25 Pulse Oximetry 96 02/13/21 20:25 Temperature 36.1 C L 02/13/21 20:25 Pulse Rate 100 02/13/21 20:25 Respiratory Rate 20 02/13/21 20:25 Blood Pressure 180/85 H 02/13/21 20:25 Pulse Oximetry 96 02/13/21 20:25 MDM - Fever Lab Data Labs: Lab Results 02/13/21 Range/Units 20:38 Urine Color Light yellow (Yellow) Urine Appearance Clear (Clear) Urine pH
[2021-02-13] MEDS: AZITHROMYCIN 250 MG TABLET 500 MG PO (21:00)
[2021-02-13 21:03] VITALS: BP 154/76; PULSE 87; RESP 18; TEMP 37; O2SAT 97
== END 2021-02-13 21:11 | disposition home or self-care (01) ==
PROVIDERS: Emergency Provider Emergency Medicine; PCP Internal Medicine
DX: J06.9 Acute upper respiratory infection, unspecified (principal)
CPT/HCPCS: 81003; 99283; A9270

== ENCOUNTER 2021-02-17 10:37 | Outpatient (CLI) | payer MEDICARE, SELFPAY ==
[2021-02-17 12:22] LABS: SARS-CoV-2 Ag Positive (Negative)
== END 2021-02-17 10:38 | disposition home or self-care (01) ==
LOC: CHSLAB 10:40
PROVIDERS: PCP Internal Medicine; Visit Provider Internal Medicine
DX: U07.1 COVID-19 (principal)
CPT/HCPCS: 87426; C9803

== ENCOUNTER 2021-08-27 12:50 | Emergency (ER) | payer MEDICARE, SELFPAY ==
[2021-08-27 13:44] VITALS: BP 171/94; PULSE 75; RESP 20; TEMP 36.8; O2SAT 98
--- NOTE | 2021-08-27 13:56 | ED.UPPEXIN ---
HPI - Extremity Injury (Upper) General Chief Complaint: Extremity Injury, Upper Stated Complaint: possible bite/bleeding on L hand Time Seen by Provider: 08/27/21 12:52 Source: patient and RN notes reviewed Mode of arrival: ambulatory Limitations: no limitations History of Present Illness complaint: injury to: left and hand Onset (ago): day(s) (3) Place: home Severity: mild Severity scale (1-10): 2 Relieving factors: none Exacerbating factors: none Related Data Home Medications Medication Instructions Recorded Confirmed alprazolam 1 mg PO PRN PRN 10/25/19 08/31/21 benazepril [Lotensin] 10 mg PO DAILY 10/25/19 08/31/21 warfarin 3 mg PO DAILY 10/25/19 08/31/21 furosemide 20 mg PO DAILY 10/15/20 08/31/21 rosuvastatin 10 mg PO DAILY 10/15/20 08/31/21 Allergies Allergy/AdvReac Type Severity Reaction Status Date / Time prednisone AdvReac Dizziness Verified 08/31/21 03:23 Review of Systems Review of Systems: All systems reviewed & are unremarkable except as noted in HPI and below PMFSH Past Medical History Medical History Achilles tendon pain CAD (coronary artery disease) Depression DVT (deep venous thrombosis) HTN (hypertension) IBS (irritable bowel syndrome) Left leg weakness Peripheral vascular disease Polio Post-polio syndrome Right foot pain Surgical History Surgical History H/O: hysterectomy Stented coronary artery Family History Family History Other Family history of arthritis Family history of mental disorder Hypertension Social History Social History Smoking status: Never smoker Alcohol intake: current Drinks per week: 1 Substance use: never Gender identity (if verbalized by the patient): Female Sexual Orientation (if Verbalized by the Patient): Straight or Heterosexual Spiritual care concerns: No Exam Const: General: no acute distress Limitations: no limitations HENMT: Ears: external ears normal and EAC's normal General nose exam: Normal external nose present and Normal nares present Face and sinus: normal facial exam Mouth: Yes moist mucous membranes Eyes: Conjunctivae: conjunctivae normal Pupils: Equal, round and reactive pupils present EOM: EOMs intact bilaterally Neck: Neck: normal visual inspection and no lymphadenopathy Chest: Chest palpation & inspection: normal inspection of the chest Resp: Effort & Inspection: normal respiratory effort Auscultation: clear to auscultation bilaterally Cardio: Rate: regular rate Rhythm: regular rhythm GI: GI Palp: Yes Soft to palpation and No Tenderness to palpation present (GI) : General: Yes bladder normal to palpation and Yes no CVA tenderness Back/Spine/Pelvis: Back: no CVA tenderness Skin: General skin exam: normal color Rashes: no rashes Neuro: General: patient oriented x3, moves all extremities, no meningeal signs, no focal motor deficits and CN's II-XI intact bilaterally Extrem: General: normal to inspection and no pedal edema Psych: Appearance: grossly normal and well kempt Mental Status: mental status grossly normal Affect: normal affect Attitude: cooperative Thought content: Yes Normal thought content present Course Course Emergency Course: Pt was stable in the ED. Reevaluation(s) Reevaluation #1: VSS Date: 09/30/21 Time: 13:22 Vital Signs Vital signs: Vital Signs Temperature 36.8 C 08/27/21 13:44 Pulse Rate 75 08/27/21 13:44 Respiratory Rate 20 08/27/21 13:44 Blood Pressure 171/94 H 08/27/21 13:44 Pulse Oximetry 98 08/27/21 13:44 Temperature 36.7 C 08/27/21 14:11 Pulse Rate 72 08/27/21 14:11 Respiratory Rate 20 08/27/21 14:11 Blood Pressure 171/94 H 08/27/21 13:44 Pulse Oximetry 98 08/27/21 14:11 MDM - Extremity Inj
[2021-08-27] MEDS: LIDOCAINE HCL 1% LOCAL INJ 20 ML VIAL (14:10)
[2021-08-27] MEDS: ACETAMINOPHEN 325 MG TABLET 650 MG PO (14:10)
[2021-08-27] MEDS: cefTRIAXone 1 GM VIAL IM (14:10)
[2021-08-27 14:11] VITALS: PULSE 72; RESP 20; TEMP 36.7; O2SAT 98
== END 2021-08-27 14:17 | disposition home or self-care (01) ==
PROVIDERS: Emergency Provider Emergency Medicine; PCP Internal Medicine
DX: L03.012 Cellulitis of left finger (principal)
CPT/HCPCS: 96372; 99283; A9270; J0696

== ENCOUNTER 2021-08-31 02:56 | Emergency (ER) | payer MEDICARE, SELFPAY ==
--- NOTE | ~2021-08-31 | CT_ITS ---
EXAMINATION: CT brain wo con DATE: 08/31/2021 05:33 INDICATION: Weakness. TECHNIQUE: Computed tomography (CT) of the head was performed without intravenous contrast. The mA wa s adjusted according to patient size. Iterative reconstruction technique was employed. The dose-lengt h product was 681.00 mGy-cm. COMPARISON: Head CT 10/30/2020 FINDINGS: There are scattered areas of low attenuation in the cerebral white matter. There is an old lacunar infarct in left caudate nucleus. There is an empty sella. There is no intracranial hemorrhage , acute infarction, or abnormal intracranial mass lesion. The ventricles are normal in size. The para nasal sinuses are clear. The mastoid air cells are normal. IMPRESSION: 1. 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 2. Stable moderate nonspecific cerebral white matter disease, which likely represents chronic small v essel ischemic disease. Reviewed, dictated and finalized at location A. HASING ASSISTANT IMPRESSION: 1. 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 2. Stable moderate nonspecific cerebral white matter disease, which likely repr esents chronic small vessel ischemic disease.
--- NOTE | 2021-08-31 02:59 | ED.WEAKNESS ---
HPI - Weakness General Chief complaint: Weakness Stated complaint: ALLERGIC REACTION Time Seen by Provider: 08/31/21 02:59 Source: patient, EMS and RN notes reviewed Mode of arrival: EMS Limitations: no limitations History of Present Illness HPI Narrative: Original call out by EMS was possible allergic reaction. Patient is a poor historian. She is on amoxicillin for recent cellulitis. She has only had 2 days worth. EMS states that they have brought her in recently and she seems at her baseline, there is no dyspnea, no rash. Daughter apparently does not drive and told EMS she just seems not herself , and wanted her checked out. She does not voice any complaints. Complaint: generalized weakness Duration: constant Location: generalized Migration: none Severity: mild Relieving factors: none Exacerbating factors: none Associated symptoms: denies other symptoms Related Data Home Medications Medication Instructions Recorded Confirmed alprazolam 1 mg PO PRN PRN 10/25/19 08/31/21 benazepril [Lotensin] 10 mg PO DAILY 10/25/19 08/31/21 warfarin 3 mg PO DAILY 10/25/19 08/31/21 furosemide 20 mg PO DAILY 10/15/20 08/31/21 rosuvastatin 10 mg PO DAILY 10/15/20 08/31/21 Allergies Allergy/AdvReac Type Severity Reaction Status Date / Time prednisone AdvReac Dizziness Verified 08/31/21 03:23 Review of Systems Review of Systems: All systems reviewed & are unremarkable except as noted in HPI and below PMFSH Past Medical History Medical History Achilles tendon pain CAD (coronary artery disease) Depression DVT (deep venous thrombosis) HTN (hypertension) IBS (irritable bowel syndrome) Left leg weakness Peripheral vascular disease Polio Post-polio syndrome Right foot pain Surgical History Surgical History H/O: hysterectomy Stented coronary artery Family History Family History Other Family history of arthritis Family history of mental disorder Hypertension Social History Social History Smoking status: Never smoker Alcohol intake: current Drinks per week: 1 Substance use: never Gender identity (if verbalized by the patient): Female Sexual Orientation (if Verbalized by the Patient): Straight or Heterosexual Spiritual care concerns: No Exam Const: General: no acute distress and alert Nutritional Appearance: well nourished Orientation/consciousness: oriented to person, oriented to place and No oriented to time HENMT: Head: normal to inspection Ears: external ears normal Face and sinus: normal facial exam Mouth: Yes moist mucous membranes Eyes: Conjunctivae: conjunctivae normal Pupils: Equal, round and reactive pupils present EOM: EOMs intact bilaterally Neck: Neck: normal visual inspection Resp: Effort & Inspection: normal respiratory effort Auscultation: clear to auscultation bilaterally Cardio: Rate: regular rate Rhythm: regular rhythm GI: GI Palp: Yes Soft to palpation and No Tenderness to palpation present (GI) Auscultation: normal bowel sounds Back/Spine/Pelvis: Cervical Spine: cervical ROM normal Thoracic/Lumbar Spine: thoraco-lumbar ROM normal Skin: General skin exam: normal color Rashes: no rashes Neuro: General: moves all extremities, no meningeal signs, no focal motor deficits and CN's II-XI intact bilaterally Speech: normal speech Extrem: General: normal to inspection and no clubbing, cyanosis or edema Psych: Appearance: disheveled Attitude: cooperative Thought content: Yes Normal thought content present Course Vital Signs Vital signs: Vital Signs Temperature 36.8 C 08/31/21 03:00 Pulse Rate 90 08/31/21 03:00 Respiratory Rate 18 08/31/21 03:00 Blood Pressure 153/100 H 08/31/21 03:00 Pulse Oximetry 94 08/31/21 03:00 Temperature
[2021-08-31 03:00] VITALS: BP 153/100; PULSE 90; RESP 18; TEMP 36.8; O2SAT 94
--- NOTE | 2021-08-31 03:20 | PC.NURSE ---
pt is AO x 2 - pt is poor historian at this time. ZORAN Baires and ZORAN Marinelli performed straight catheterization to obtain a urine sample for Labs.
--- NOTE | 2021-08-31 03:25 | PC.NURSE ---
pt is AO x 2 - pt is poor historian at this time. pt unable to reliable answer admission questions. Admission documentation completed using previous admission information. MD Mallory update with pt status.
[2021-08-31 03:27] LABS: Basophils Absolute Auto 0.05 K/mm3 (0.00-0.10); Basophils Percent Auto 0.5 % (0.0-1.0); Eosinophils Absolute Auto 0.04 K/mm3 (0.02-0.50); Eosinophils Percent Auto 0.4 % (1.0-6.0); Hematocrit 42.6 % (35.0-42.0); Immature Granulocyte Absolute 0.03 K/mm3 (0.00-0.00); Immature Granulocyte Percent A 0.3 % (0.0-0.0); Lymphocytes Absolute Auto 1.48 K/mm3 (1.10-4.50); Lymphocytes Percent Auto 14.1 % (18.0-42.0); Mean Corpuscular HGB Conc 32.9 g/dL (32.0-36.0); Mean Corpuscular Hemoglobin 29.5 pg (27.0-31.0); Mean Corpuscular Volume 89.9 fL (78.0-102.0); Mean Platelet Volume 11.4 fl (9.2-11.8); Monocytes Percent Auto 14.2 % (2.0-11.0); Neutrophils Absolute Auto 7.4 K/mm3 (1.7-7.2); Neutrophils Percent Auto 70.5 % (50.0-70.0); Platelet Count Result 182 K/mm3 (150-420); Red Blood Count 4.74 M/mm3 (4.20-5.40); Red Cell Distribution Width 13.4 % (11.6-14.4); White Blood Count 10.5 K/mm3 (4.8-10.8)
[2021-08-31 03:28] LABS: Appearance Urine Clear (Clear); Bilirubin Urine Negative (Negative); Color Urine Yellow (Yellow); Glucose Urine UA Negative (Negative); Ketones Urine 2+ (Negative); Leukocyte Esterase Ur Negative LEU/UL (Negative); Nitrate Urine Negative (Negative); Protein Urine Negative (Negative); Specific Grav Ur 1.025 (1.010-1.020); Urobilinogen Urine 0.2 mg/dL (0.2-1.0)
[2021-08-31 03:34] LABS: Add Urine Microscopic? YES; Bacteria Urine Trace /hpf; Blood Urine Trace-Intact (Negative); RBC Urine 0-2 /hpf (0-2); Squamous Epithelial Cell Urine Rare /hpf (Few); WBC Urine 0-3 /hpf (0-3)
[2021-08-31 03:43] LABS: Alanine Aminotransferase 20 U/L (14-59); Albumin Level 3.5 g/dL (3.4-5.0); Alkaline Phosphatase 64 U/L (46-116); Anion Gap 12 mmol/L (8-16); Aspartate Amino Transferase 33 U/L (15-37); Bilirubin,Total 0.9 mg/dL (0.00-1.00); Blood Urea Nitrogen 17 mg/dL (7-18); Calcium 8.9 mg/dL (8.5-10.1); Carbon Dioxide 26 mmol/L (21-32); Chloride 97 mmol/L (98-108); Estimated CRCL calculation 40 ml/min; Estimated Glomerular Filt Rate > 60; Glucose 87 mg/dL (70-99); Magnesium 1.6 mg/dL (1.8-2.4); Osmolality Calculated 280 mOsm/kg (285-295); Potassium 3.8 mmol/L (3.5-5.1); Sodium 135 mmol/L (136-145); Total Protein 7.3 g/dL (6.4-8.2)
[2021-08-31 03:45] LABS: CRP < 0.2 mg/dL (0.0-0.9)
[2021-08-31 06:18] VITALS: BP 156/76; PULSE 90; RESP 19; TEMP 38; O2SAT 95
== END 2021-08-31 06:30 | disposition home or self-care (01) ==
PROVIDERS: Emergency Provider Emergency Medicine; PCP Internal Medicine
DX: R53.1 Weakness (principal); I25.10 Atherosclerotic heart disease of native coronary artery without angina pectoris; I10 Essential (primary) hypertension
CPT/HCPCS: 36415; 51701; 70450; 80053; 81001; 83735; 85025; 86140; 99284

== ENCOUNTER 2021-09-13 17:30 | Outpatient (NON) | payer MEDICARE, SELFPAY ==
[2021-09-13 17:46] LABS: Basophils Absolute Auto 0.04 K/mm3 (0.00-0.10); Basophils Percent Auto 0.5 % (0.0-1.0); Eosinophils Absolute Auto 0.12 K/mm3 (0.02-0.50); Eosinophils Percent Auto 1.6 % (1.0-6.0); Hematocrit 38.2 % (35.0-42.0); Hemoglobin 12.4 g/dL (11.7-13.8); Immature Granulocyte Absolute 0.02 K/mm3 (0.00-0.00); Immature Granulocyte Percent A 0.3 % (0.0-0.0); Lymphocytes Absolute Auto 2.04 K/mm3 (1.10-4.50); Lymphocytes Percent Auto 27.5 % (18.0-42.0); Mean Corpuscular HGB Conc 32.5 g/dL (32.0-36.0); Mean Corpuscular Hemoglobin 30.4 pg (27.0-31.0); Mean Corpuscular Volume 93.6 fL (78.0-102.0); Mean Platelet Volume 11.8 fl (9.2-11.8); Monocytes Absolute Auto 0.73 K/mm3 (0.10-0.90); Monocytes Percent Auto 9.8 % (2.0-11.0); Neutrophils Absolute Auto 4.5 K/mm3 (1.7-7.2); Neutrophils Percent Auto 60.3 % (50.0-70.0); Platelet Count Result 214 K/mm3 (150-420); Red Blood Count 4.08 M/mm3 (4.20-5.40); White Blood Count 7.4 K/mm3 (4.8-10.8)
[2021-09-13 18:12] LABS: Alanine Aminotransferase 58 U/L (14-59); Alkaline Phosphatase 75 U/L (46-116); Anion Gap 5 mmol/L (8-16); Aspartate Amino Transferase 32 U/L (15-37); Bilirubin,Total 0.3 mg/dL (0.00-1.00); Blood Urea Nitrogen 16 mg/dL (7-18); Calcium 8.4 mg/dL (8.5-10.1); Carbon Dioxide 29 mmol/L (21-32); Chloride 104 mmol/L (98-108); Estimated Glomerular Filt Rate > 60; Glucose 123 mg/dL (70-99); Osmolality Calculated 288 mOsm/kg (285-295); Potassium 4.3 mmol/L (3.5-5.1); Sodium 138 mmol/L (136-145); Total Protein 5.9 g/dL (6.4-8.2)
[2021-09-13 18:14] LABS: CRP < 0.2 mg/dL (0.0-0.9)
[2021-09-13 18:24] LABS: INR 10.9
== END 2021-09-13 17:31 | disposition home or self-care (01) ==
LOC: CHSLAB 17:33
PROVIDERS: Visit Provider Internal Medicine
DX: I35.0 Nonrheumatic aortic (valve) stenosis (principal); Z79.01 Long term (current) use of anticoagulants
CPT/HCPCS: 80053; 85025; 85610; 86140

== ENCOUNTER 2021-09-25 09:19 | Outpatient (CLI) | payer MEDICARE, SELFPAY ==
[2021-09-25 09:37] LABS: Basophils Absolute Auto 0.04 K/mm3 (0.00-0.10); Basophils Percent Auto 0.5 % (0.0-1.0); Eosinophils Absolute Auto 0.15 K/mm3 (0.02-0.50); Hematocrit 38.6 % (35.0-42.0); Hemoglobin 12.4 g/dL (11.7-13.8); Immature Granulocyte Absolute 0.01 K/mm3 (0.00-0.00); Immature Granulocyte Percent A 0.1 % (0.0-0.0); Lymphocytes Absolute Auto 2.06 K/mm3 (1.10-4.50); Lymphocytes Percent Auto 27.5 % (18.0-42.0); Mean Corpuscular HGB Conc 32.1 g/dL (32.0-36.0); Mean Corpuscular Hemoglobin 30.2 pg (27.0-31.0); Mean Corpuscular Volume 93.9 fL (78.0-102.0); Mean Platelet Volume 11.4 fl (9.2-11.8); Monocytes Absolute Auto 0.85 K/mm3 (0.10-0.90); Monocytes Percent Auto 11.4 % (2.0-11.0); Neutrophils Absolute Auto 4.4 K/mm3 (1.7-7.2); Neutrophils Percent Auto 58.5 % (50.0-70.0); Platelet Count Result 182 K/mm3 (150-420); Red Blood Count 4.11 M/mm3 (4.20-5.40); White Blood Count 7.5 K/mm3 (4.8-10.8)
[2021-09-25 09:52] LABS: INR 1.3; Prothrombin Time 13.5 Seconds (9.50-12.10)
[2021-09-25 10:03] LABS: Alanine Aminotransferase 20 U/L (14-59); Albumin Level 3.1 g/dL (3.4-5.0); Alkaline Phosphatase 56 U/L (46-116); Anion Gap 7 mmol/L (8-16); Aspartate Amino Transferase 15 U/L (15-37); Bilirubin,Total 0.5 mg/dL (0.00-1.00); Blood Urea Nitrogen 16 mg/dL (7-18); Calcium 8.7 mg/dL (8.5-10.1); Carbon Dioxide 31 mmol/L (21-32); Chloride 105 mmol/L (98-108); Estimated Glomerular Filt Rate > 60; Glucose 93 mg/dL (70-99); Osmolality Calculated 297 mOsm/kg (285-295); Potassium 4.3 mmol/L (3.5-5.1); Sodium 143 mmol/L (136-145); Total Protein 6.1 g/dL (6.4-8.2)
== END 2021-09-25 09:20 | disposition home or self-care (01) ==
LOC: CHSLAB 09:20
PROVIDERS: PCP Internal Medicine; Visit Provider Internal Medicine
DX: E46 Unspecified protein-calorie malnutrition (principal); Z79.01 Long term (current) use of anticoagulants
CPT/HCPCS: 36415; 80053; 85025; 85610

== ENCOUNTER 2021-10-09 13:39 | Outpatient (RCR) | payer MEDICARE, SELFPAY ==
[2021-09-15 09:57] LABS: Prothrombin Time 78.6 Seconds (9.50-12.10)
[2021-09-15 10:01] LABS: INR 8.1
[2021-09-18 12:40] LABS: INR 2.4; Prothrombin Time 24.5 Seconds (9.50-12.10)
[2021-10-09 14:04] LABS: INR 1.4; Prothrombin Time 14.7 Seconds (9.50-12.10)
== END 2021-12-14 23:59 | disposition home or self-care (01) ==
LOC: CHSLAB 13:39
PROVIDERS: PCP Internal Medicine; Visit Provider Internal Medicine
DX: Z79.01 Long term (current) use of anticoagulants (principal)
CPT/HCPCS: 36415; 85610

== ENCOUNTER 2021-10-23 11:48 | Outpatient (CLI) | payer MEDICARE, SELFPAY ==
--- NOTE | ~2021-10-23 | XR_ITS ---
EXAM: XR hip RT min 2V HISTORY: R hip pain COMPARISON: 10/25/19 FINDINGS: Osteopenia. Left iliac stent. Iliac, ischial, and greater tuberosity enthesopathy. No frac ture or dislocation. Mild right hip joint space narrowing. IMPRESSION: No acute osseous finding in the right hip. Reviewed, dictated and finalized at location K.
[2021-10-23 12:15] LABS: Basophils Absolute Auto 0.06 K/mm3 (0.00-0.10); Basophils Percent Auto 0.8 % (0.0-1.0); Eosinophils Absolute Auto 0.13 K/mm3 (0.02-0.50); Eosinophils Percent Auto 1.8 % (1.0-6.0); Hematocrit 40.5 % (35.0-42.0); Hemoglobin 13.1 g/dL (11.7-13.8); Immature Granulocyte Absolute 0.01 K/mm3 (0.00-0.00); Immature Granulocyte Percent A 0.1 % (0.0-0.0); Lymphocytes Absolute Auto 2.19 K/mm3 (1.10-4.50); Lymphocytes Percent Auto 30.9 % (18.0-42.0); Mean Corpuscular HGB Conc 32.3 g/dL (32.0-36.0); Mean Corpuscular Volume 92.7 fL (78.0-102.0); Mean Platelet Volume 11.5 fl (9.2-11.8); Monocytes Absolute Auto 0.94 K/mm3 (0.10-0.90); Monocytes Percent Auto 13.3 % (2.0-11.0); Neutrophils Absolute Auto 3.8 K/mm3 (1.7-7.2); Neutrophils Percent Auto 53.1 % (50.0-70.0); Platelet Count Result 200 K/mm3 (150-420); Red Blood Count 4.37 M/mm3 (4.20-5.40); Red Cell Distribution Width 13.6 % (11.6-14.4); White Blood Count 7.1 K/mm3 (4.8-10.8)
[2021-10-23 12:31] LABS: Alanine Aminotransferase 17 U/L (14-59); Albumin Level 3.2 g/dL (3.4-5.0); Alkaline Phosphatase 60 U/L (46-116); Anion Gap 7 mmol/L (8-16); Aspartate Amino Transferase 15 U/L (15-37); Bilirubin,Total 0.4 mg/dL (0.00-1.00); Blood Urea Nitrogen 12 mg/dL (7-18); Carbon Dioxide 29 mmol/L (21-32); Chloride 105 mmol/L (98-108); Estimated Glomerular Filt Rate > 60; Glucose 106 mg/dL (70-99); Osmolality Calculated 291 mOsm/kg (285-295); Potassium 3.8 mmol/L (3.5-5.1); Sodium 141 mmol/L (136-145); Total Protein 7.1 g/dL (6.4-8.2)
[2021-10-23 12:37] LABS: INR 2.2; Prothrombin Time 22.4 Seconds (9.50-12.10)
== END 2021-10-23 11:49 | disposition home or self-care (01) ==
LOC: CHSLAB 11:51
PROVIDERS: PCP Internal Medicine; Visit Provider Internal Medicine
DX: M25.551 Pain in right hip (principal); N39.0 Urinary tract infection, site not specified; Z79.01 Long term (current) use of anticoagulants; R13.10 Dysphagia, unspecified
CPT/HCPCS: 36415; 73502; 80053; 85025; 85610

== ENCOUNTER 2021-11-10 08:23 | Outpatient (CLI) | payer MEDICARE, SELFPAY ==
--- NOTE | ~2021-11-10 | XR_ITS ---
EXAMINATION: XR barium swallow DATE: 11/10/2021 10:30 CDT INDICATION: Dysphagia TECHNIQUE: Thick barium contrast with gas effervescent crystals were administered orally. Fluoroscop ic images of the esophagus were obtained in various projections. The hypopharynx was also examined. T hereafter, overhead images of the thoracic esophagrus were performed. Fluroscopy time 0.5 minutesDap 5.9 FINDINGS: The esophagus is normal in caliber, without mucosal lesions or strictures. There is normal esophageal peristalsis. There is no hiatal hernia. No discreet episode of gastroesophageal reflux i s seen during the course of this study. IMPRESSION: 1. Normal barium esophagram. Reviewed, dictated and finalized at location B.
== END 2021-11-10 08:24 | disposition home or self-care (01) ==
LOC: CHSIMG 08:25
PROVIDERS: PCP Internal Medicine; Visit Provider Internal Medicine
DX: R13.10 Dysphagia, unspecified (principal)
CPT/HCPCS: 74220

== ENCOUNTER 2022-03-23 12:26 | Outpatient (CLI) | payer MEDICARE, SELFPAY ==
--- NOTE | ~2022-03-23 | XR_ITS ---
XR chest 2V 03/23/2022 12:54 Indication: Upper respiratory infection. Recent infection. Procedure: 2 view chest Comparison: Comparison to multiple prior studies sequentially, with oldest reviewed study dated 01/12. Findings: Heart size normal. No focal air space disease, pulmonary edema, pleural effusion or suspect ed pneumothorax. Impression: 1: No acute cardiopulmonary disease. Reviewed, dictated and finalized at location B. Impression: 1: No acute cardiopulmonary disease.
[2022-03-23 13:00] LABS: Appearance Urine Clear (Clear); Basophils Absolute Auto 0.04 K/mm3 (0.00-0.10); Basophils Percent Auto 0.5 % (0.0-1.0); Bilirubin Urine Negative (Negative); Blood Urine Negative (Negative); Eosinophils Percent Auto 1.4 % (1.0-6.0); Glucose Urine UA Negative (Negative); Hematocrit 41.6 % (35.0-42.0); Hemoglobin 13.6 g/dL (11.7-13.8); Immature Granulocyte Absolute 0.02 K/mm3 (0.00-0.00); Immature Granulocyte Percent A 0.3 % (0.0-0.0); Ketones Urine Negative (Negative); Leukocyte Esterase Ur Negative (Negative); Lymphocytes Absolute Auto 2.52 K/mm3 (1.10-4.50); Lymphocytes Percent Auto 34.1 % (18.0-42.0); Mean Corpuscular HGB Conc 32.7 g/dL (32.0-36.0); Mean Corpuscular Hemoglobin 29.3 pg (27.0-31.0); Mean Corpuscular Volume 89.7 fL (78.0-102.0); Mean Platelet Volume 11.4 fl (9.2-11.8); Monocytes Absolute Auto 0.65 K/mm3 (0.10-0.90); Monocytes Percent Auto 8.8 % (2.0-11.0); Neutrophils Absolute Auto 4.1 K/mm3 (1.7-7.2); Neutrophils Percent Auto 54.9 % (50.0-70.0); Nitrate Urine Negative (Negative); Platelet Count Result 177 K/mm3 (150-420); Protein Urine Negative (Negative); Red Blood Count 4.64 M/mm3 (4.20-5.40); Red Cell Distribution Width 13.3 % (11.6-14.4); Urobilinogen Urine 0.2 mg/dL (0.2-1.0); White Blood Count 7.4 K/mm3 (4.8-10.8); pH Urine 5.5 (5.0-8.0)
[2022-03-23 13:01] LABS: Alanine Aminotransferase 30 U/L (14-59); Albumin Level 3.1 g/dL (3.4-5.0); Alkaline Phosphatase 57 U/L (46-116); Anion Gap 4 mmol/L (8-16); Aspartate Amino Transferase 21 U/L (15-37); Bilirubin,Total 0.4 mg/dL (0.00-1.00); Blood Urea Nitrogen 12 mg/dL (7-18); Carbon Dioxide 32 mmol/L (21-32); Chloride 109 mmol/L (98-108); Estimated Glomerular Filt Rate > 60; Glucose 98 mg/dL (70-99); Osmolality Calculated 299 mOsm/kg (285-295); Potassium 3.9 mmol/L (3.5-5.1); Sodium 145 mmol/L (136-145); Total Protein 6.9 g/dL (6.4-8.2)
[2022-03-23 13:03] LABS: INR 1.8; Prothrombin Time 18.6 Seconds (9.50-12.10)
[2022-03-23 13:05] LABS: Add Urine Microscopic? NO; Color Urine Light Yellow (Yellow)
== END 2022-03-23 12:27 | disposition home or self-care (01) ==
LOC: CHSLAB 12:29 → CHSIMG 12:39
PROVIDERS: PCP Internal Medicine; Visit Provider Nurse Practitioner Family
DX: J06.9 Acute upper respiratory infection, unspecified (principal); Z86.16 Personal history of COVID-19; Z79.01 Long term (current) use of anticoagulants; R30.9 Painful micturition, unspecified
CPT/HCPCS: 36415; 71046; 80053; 81003; 85025; 85610; 87086

== ENCOUNTER 2022-04-30 13:02 | Outpatient (CLI) | payer MEDICARE, SELFPAY ==
[2022-04-30 13:17] LABS: Basophils Absolute Auto 0.04 K/mm3 (0.00-0.10); Basophils Percent Auto 0.6 % (0.0-1.0); Eosinophils Absolute Auto 0.17 K/mm3 (0.02-0.50); Eosinophils Percent Auto 2.5 % (1.0-6.0); Hematocrit 39.5 % (35.0-42.0); Hemoglobin 12.8 g/dL (11.7-13.8); Immature Granulocyte Absolute 0.01 K/mm3 (0.00-0.00); Immature Granulocyte Percent A 0.1 % (0.0-0.0); Lymphocytes Absolute Auto 2.52 K/mm3 (1.10-4.50); Lymphocytes Percent Auto 37.3 % (18.0-42.0); Mean Corpuscular HGB Conc 32.4 g/dL (32.0-36.0); Mean Corpuscular Hemoglobin 29.5 pg (27.0-31.0); Mean Platelet Volume 11.3 fl (9.2-11.8); Monocytes Absolute Auto 0.99 K/mm3 (0.10-0.90); Monocytes Percent Auto 14.7 % (2.0-11.0); Neutrophils Percent Auto 44.8 % (50.0-70.0); Platelet Count Result 207 K/mm3 (150-420); Red Blood Count 4.34 M/mm3 (4.20-5.40); Red Cell Distribution Width 14.2 % (11.6-14.4); White Blood Count 6.8 K/mm3 (4.8-10.8)
[2022-04-30 13:43] LABS: INR 4.7; Prothrombin Time 45.5 Seconds (9.50-12.10)
[2022-04-30 13:45] LABS: Anion Gap 6 mmol/L (8-16); Blood Urea Nitrogen 8 mg/dL (7-18); Calcium 8.8 mg/dL (8.5-10.1); Carbon Dioxide 29 mmol/L (21-32); Chloride 108 mmol/L (98-108); Estimated Glomerular Filt Rate > 60; Glucose 104 mg/dL (70-99); Osmolality Calculated 294 mOsm/kg (285-295); Potassium 3.5 mmol/L (3.5-5.1); Sodium 143 mmol/L (136-145)
[2022-04-30 13:46] LABS: Thyroid Stimulating Hormone Reflex 1.86 u/IU/mL (0.36-3.74)
== END 2022-04-30 13:03 | disposition home or self-care (01) ==
PROVIDERS: PCP Internal Medicine; Visit Provider Internal Medicine Cardiovascular Disease
DX: R09.89 Other specified symptoms and signs involving the circulatory and respiratory systems (principal); R00.2 Palpitations; Z79.01 Long term (current) use of anticoagulants
CPT/HCPCS: 36415; 80048; 84443; 85025; 85610

== ENCOUNTER 2022-05-05 11:51 | Emergency (ER) | payer MEDICARE, SELFPAY ==
[2022-05-05 12:09] VITALS: BP 176/76; PULSE 87; RESP 16; TEMP 36.7; O2SAT 95
[2022-05-05 12:13] LABS: Add Urine Microscopic? YES; Appearance Urine Cloudy (Clear); Bilirubin Urine Negative (Negative); Blood Urine 2+ (Negative); Color Urine Yellow (Yellow); Glucose Urine UA Negative (Negative); Ketones Urine Negative (Negative); Leukocyte Esterase Ur 3+ LEU/UL (Negative); Nitrate Urine Positive (Negative); Protein Urine 2+ (Negative); Squamous Epithelial Cell Urine Rare /hpf (Few); Urobilinogen Urine 0.2 mg/dL (0.2-1.0); WBC Urine >75 /hpf (0-3)
[2022-05-05 12:14] LABS: Bacteria Urine 2+ /hpf
--- NOTE | 2022-05-05 12:14 | PC.NURSE ---
assisted with female exam
--- NOTE | 2022-05-05 12:19 | ED.FEMALEGU ---
HPI - Female Genitourinary General Chief complaint: Urogenital-Female Stated complaint: female issue pain possible UTI Time Seen by Provider: 05/05/22 12:07 Source: patient Mode of arrival: ambulatory Limitations: no limitations History of Present Illness HPI Narrative: this an 81-year-old female who presents with some vaginal burning and pressure, started yesterday and currently no fevers no hematuria no nausea vomiting mild suprapubic tenderness with no flank pain no nausea vomiting or diarrhea constipation. Patient does have some reddened area in the groin bilaterally that is tender. MD elicited complaint: dysuria and UTI Onset (ago): day(s) Location of symptoms: external genitalia Severity: moderate Female Urogenital Radiation: Suprapubic Quality of pain: burning Consistency: constant Vaginal discharge: none Vaginal bleeding: none Urinary symptoms: Dysuria Exacerbating factors: none Relieving factors: none Associated symptoms: other ( rash the groin area red and tender) Related Data Home Medications Medication Instructions Recorded Confirmed alprazolam 1 mg tablet 1 mg PO PRN PRN Anxiety 10/25/19 05/05/22 benazepril 10 mg tablet (Lotensin) 10 mg PO DAILY 10/25/19 05/05/22 warfarin 3 mg tablet 3 mg PO DAILY 10/25/19 05/05/22 furosemide 20 mg tablet 20 mg PO DAILY 10/15/20 05/05/22 rosuvastatin 10 mg tablet 10 mg PO DAILY 10/15/20 05/05/22 Allergies Allergy/AdvReac Type Severity Reaction Status Date / Time prednisone AdvReac Dizziness Verified 05/05/22 12:12 Review of Systems Review of Systems: All systems reviewed & are unremarkable except as noted in HPI and below PMFSH Past Medical History Medical History Achilles tendon pain CAD (coronary artery disease) Depression DVT (deep venous thrombosis) HTN (hypertension) IBS (irritable bowel syndrome) Left leg weakness Peripheral vascular disease Polio Post-polio syndrome Right foot pain Surgical History Surgical History H/O: hysterectomy Stented coronary artery Family History Family History Other Family history of arthritis Family history of mental disorder Hypertension Social History Social History Smoking status: Never smoker Alcohol intake: current Drinks per week: 1 Substance use: never Gender identity (if verbalized by the patient): Female Sexual Orientation (if Verbalized by the Patient): Straight or Heterosexual Spiritual care concerns: No Exam Const: General: healthy appearing Nutritional Appearance: well nourished Orientation/consciousness: patient oriented x3 HENMT: Head: normal to inspection Face/Nose/Sinus: Normal external nose present Eyes: Conjunctivae: conjunctivae normal EOM: EOMs intact bilaterally Neck: Neck: normal visual inspection Chest: Chest palpation & inspection: normal inspection of the chest Resp: Effort & Inspection: normal respiratory effort Auscultation: clear to auscultation bilaterally Cardio: Rate: regular rate Rhythm: regular rhythm GI: GI Palp: Yes Soft to palpation and Yes Tenderness to palpation present (GI) : General: Yes bladder normal to palpation Urinary Catheter: Urinary Catheter: patent and draining Skin: General skin exam: normal color Rashes: no rashes Wounds: wounds noted Neuro: General: patient oriented x3 Cranial nerves: Yes Nystagmus not present Speech: normal speech Gait exam (Neuro): Normal gait present Extrem: General: normal to inspection Psych: Appearance: grossly normal and well kempt Mental Status: mental status grossly normal Course Course Emergency Course: Patient has urinary tract infection urinalysis with 2 reviewed with the patient, patient given a dose of Macrobid and with some red and moist area in the marissa
[2022-05-05] MEDS: NITROFURANTOIN MONOHYD MACROCR 100 MG CAP PO (12:27)
[2022-05-05 12:35] VITALS: BP 176/76; PULSE 87; RESP 16; TEMP 36.7; O2SAT 95
== END 2022-05-05 12:37 | disposition home or self-care (01) ==
PROVIDERS: Emergency Provider Emergency Medicine; PCP Internal Medicine
DX: B37.9 Candidiasis, unspecified (principal); N39.0 Urinary tract infection, site not specified; I25.10 Atherosclerotic heart disease of native coronary artery without angina pectoris; I10 Essential (primary) hypertension; Z86.718 Personal history of other venous thrombosis and embolism; Z79.01 Long term (current) use of anticoagulants
CPT/HCPCS: 81001; 87077; 87086; 87088; 87186; 99283; A9270

== ENCOUNTER 2022-06-28 10:23 | Outpatient (CLI) | payer MEDICARE, SELFPAY ==
--- NOTE | ~2022-06-28 | US_ITS ---
EXAMINATION: US soft tissue LE DATE: 06/28/2022 11:32 INDICATION: Left calf mass. TECHNIQUE: Multiple grayscale and Doppler ultrasound images of the left lower limb were obtained. COMPARISON: None FINDINGS: There is a 4.1 x 5.2 x 1.8 cm mixed anechoic and hypoechoic mass without internal vascular flow in medial left calf. IMPRESSION: 1. 5.2 cm cystic mass in left calf, likely a hematoma. Reviewed, dictated and finalized at location A. 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
--- NOTE | ~2022-06-28 | US_ITS ---
US venous doppler [facility] DATE: 06/28/2022 11:33 INDICATION: Left lower extremity swelling TECHNIQUE: Real-time and color flow imaging and Doppler analysis of the veins of the left lower extre mity COMPARISON: None FINDINGS: The left greater saphenous vein is patent. There is spontaneous and phasic flow and normal augmentation and color flow signal and normal compression of the deep veins of the left lower extremi ty. IMPRESSION: No evidence of deep venous thrombosis of left lower extremity Reviewed, dictated and finalized at Location A. Reviewed, dictated and finalized at location L. 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
== END 2022-06-28 10:24 | disposition home or self-care (01) ==
LOC: CHSIMG 10:26
PROVIDERS: PCP Internal Medicine; Visit Provider Internal Medicine
DX: M79.89 Other specified soft tissue disorders (principal)
CPT/HCPCS: 76882; 93971

== ENCOUNTER 2023-03-05 12:45 | Emergency (ER) | payer MEDICARE, SELFPAY ==
--- NOTE | ~2023-03-05 | CT_ITS ---
EXAMINATION: CT chest high resolution wo fl DATE: 03/05/2023 13:23 INDICATION: Chest pain and bruising after fall TECHNIQUE: Computed tomography (CT) of the chest was performed without intravenous contrast. The dose -length product was 334.72 mGy-cm. Automated exposure control and iterative reconstruction technique were employed. COMPARISON: Chest x-ray dated 03/23/2022 FINDINGS: Elevated right diaphragm, suspicious for phrenic nerve paralysis. No pleural or pericardial effusion. Heart size is normal. There is atherosclerosis of the aorta and coronary arteries. No thor acic lymphadenopathy. Upper abdomen is unremarkable. No endobronchial lesions. No pneumothorax. No fo rosa m airspace consolidation. Moderate thoracic spondylosis. No acute osseous abnormality. IMPRESSION: 1.No acute cardiopulmonary disease. Reviewed, dictated and finalized at location L.
[2023-03-05 12:45] VITALS: BP 124/98; PULSE 88; RESP 18; TEMP 36.4; O2SAT 95
--- NOTE | 2023-03-05 12:48 | ED.FALL ---
HPI - Fall General Chief Complaint: Fall Stated Complaint: fall Time Seen by Provider: 03/05/23 12:47 Source: patient and RN notes reviewed Mode of arrival: ambulatory Limitations: no limitations History of Present Illness complaint: fall Onset (ago): day(s) (4-5) Fall from: standing Fall witnessed: no Place fall occurred: home Loss of consciousness: none Symptoms prior to fall: none Context: tripped/slipped Location of injury: chest Severity: moderate Quality: dull and aching Associated symptoms (after fall): denies Related Data Home Medications Medication Instructions Recorded Confirmed alprazolam 1 mg tablet 1 mg PO PRN PRN Anxiety 10/25/19 03/05/23 benazepril 10 mg tablet (Lotensin) 10 mg PO DAILY 10/25/19 03/05/23 warfarin 3 mg tablet 3 mg PO DAILY 10/25/19 03/05/23 furosemide 20 mg tablet 20 mg PO DAILY 10/15/20 03/05/23 rosuvastatin 10 mg tablet 10 mg PO DAILY 10/15/20 03/05/23 Allergies Allergy/AdvReac Type Severity Reaction Status Date / Time prednisone AdvReac Dizziness Verified 03/05/23 12:54 Review of Systems Review of Systems: All systems reviewed & are unremarkable except as noted in HPI and below PMFSH Past Medical History Medical History Achilles tendon pain CAD (coronary artery disease) Depression DVT (deep venous thrombosis) HTN (hypertension) IBS (irritable bowel syndrome) Left leg weakness Peripheral vascular disease Polio Post-polio syndrome Right foot pain Surgical History Surgical History H/O: hysterectomy Stented coronary artery Family History Family History Other Family history of arthritis Family history of mental disorder Hypertension Social History Social History Smoking status: Never smoker Alcohol intake: current Drinks per week: 1 Substance use: never Gender identity (if verbalized by the patient): Female Sexual Orientation (if Verbalized by the Patient): Straight or Heterosexual Spiritual care concerns: No Exam Const: General: healthy appearing, no acute distress and alert Nutritional Appearance: well nourished Orientation/consciousness: patient oriented x3 Limitations: no limitations HENMT: Head: normal to inspection Ears: external ears normal Face/Nose/Sinus: Normal external nose present Face and sinus: normal facial exam Mouth: Yes moist mucous membranes Eyes: Conjunctivae: conjunctivae normal Pupils: Equal, round and reactive pupils present EOM: EOMs intact bilaterally Neck: Neck: normal visual inspection Chest: Chest palpation & inspection: tenderness ( anterior chest wall) sternum Resp: Effort & Inspection: normal respiratory effort Auscultation: clear to auscultation bilaterally Cardio: Rate: regular rate Rhythm: regular rhythm GI: GI Palp: Yes Soft to palpation and No Tenderness to palpation present (GI) Auscultation: normal bowel sounds Back/Spine/Pelvis: Cervical Spine: cervical ROM normal Thoracic/Lumbar Spine: thoraco-lumbar ROM normal Skin: General skin exam: normal color and ecchymosis ( anterior chest wall, right distal upper arm, left thigh) Neuro: General: patient oriented x3, moves all extremities, no focal motor deficits and CN's II-XI intact bilaterally Speech: normal speech Gait exam (Neuro): Normal gait present Extrem: General: normal to inspection and no clubbing, cyanosis or edema Psych: Mental Status: mental status grossly normal Affect: normal affect Attitude: cooperative MDM - Fall Differential Diagnosis Differential diagnosis: Likely other ( Sternal fracture, anterior rib fracture, chest wall contusion.) Discharge Plan Discharge Clinical Impression: Chest wall contusion Qualifiers: Encounter type: initial encounter Laterality: right Qualified Code(s): S20.211A - Cont
[2023-03-05 13:54] VITALS: BP 126/90; PULSE 80; RESP 18; O2SAT 99
== END 2023-03-05 13:58 | disposition home or self-care (01) ==
PROVIDERS: Emergency Provider Emergency Medicine; PCP Internal Medicine
DX: S20.211A Contusion of right front wall of thorax, initial encounter (principal); I25.10 Atherosclerotic heart disease of native coronary artery without angina pectoris; I10 Essential (primary) hypertension; Z79.01 Long term (current) use of anticoagulants; Z79.899 Other long term (current) drug therapy; Z86.718 Personal history of other venous thrombosis and embolism; W01.0XXA Fall on same level from slipping, tripping and stumbling without subsequent striking against object, initial encounter
CPT/HCPCS: 71250; 99284

== ENCOUNTER 2023-03-23 13:30 | Emergency (ER) | payer MEDICARE, SELFPAY ==
[2023-03-23] VITALS (7 sets, daily range): BP systolic 142–154; BP diastolic 60–86; PULSE 66–89; RESP 17–20; TEMP 36.7–36.9; O2SAT 94–98
--- NOTE | ~2023-03-23 | XR_ITS ---
EXAMINATION: XR chest 1V portable Exam Date/Time: 03/23/2023 14:00 CDT HISTORY: cough, weakness, chest pain Comparison: 03/23/2022. RESULT: Lines, tubes, and devices: None. Lungs and pleura: Clear. Cardiomediastinal silhouette: Stable. Other: No acute osseous or upper abdominal finding. IMPRESSION: No acute cardiopulmonary process. Reviewed, dictated and finalized at location K.
--- NOTE | 2023-03-23 13:37 | ECG_ITS ---
Measurements Intervals [place] Rate: 69 P: 35 ME: 183 QRS: 33 QRSD: 80 T: 55 QT: 396 QTc: 426 Interpretive Statements SINUS RHYTHM MINIMAL Q WAVES- INFERIOR LEADS BASELINE ARTIFACT- I, II, III, AVR, AVL, AVF BORDERLINE ECG NO PREVIOUS ECG AVAILABLE FOR COMPARISON Electronically Signed On 03-23-2023 20:44:18 CDT by Arnulfo Mae D.O.
[2023-03-23] MEDS: IPRATROPIUM 0.5 MG/ALBUTEROL SULFATE 2.5 MG AMPUL.NEB 3 ML INHALATION (13:49)
--- NOTE | 2023-03-23 13:49 | ED.URI ---
HPI - URI/Sore Throat General Chief Complaint: Upper Respiratory Infection Stated Complaint: headache; cough Time Seen by Provider: 03/23/23 13:31 Source: patient Mode of arrival: ambulatory Limitations: no limitations History of Present Illness HPI Narrative: This is 82-year-old female with a history DVT currently on Coumadin And CAD. that presents with increasing shortness of breath with cough that is productive of yellow sputum with a headache chills body aches and currently no fever no nausea vomiting no chest pain no abdominal pain. Symptoms have been continuous for the last couple of days with some no diarrhea or constipation. MD elicited complaint: cough and nasal congestion Onset (ago): day(s) Consistency: constant Severity: moderate Description of mucous: yellow Exacerbating factors: exertion Relieving factors: nothing Associated symptoms: headache, nasal congestion, cough and shortness of breath Related Data Home Medications Medication Instructions Recorded Confirmed alprazolam 1 mg tablet 1 mg PO PRN PRN Anxiety 10/25/19 03/23/23 benazepril 10 mg tablet (Lotensin) 10 mg PO DAILY 10/25/19 03/23/23 warfarin 3 mg tablet 3 mg PO DAILY 10/25/19 03/23/23 furosemide 20 mg tablet 20 mg PO DAILY 10/15/20 03/05/23 rosuvastatin 10 mg tablet 10 mg PO DAILY 10/15/20 03/23/23 Allergies Allergy/AdvReac Type Severity Reaction Status Date / Time amoxicillin Allergy Unknown Verified 03/23/23 13:32 prednisone AdvReac Dizziness Verified 03/23/23 13:32 Review of Systems Review of Systems: All systems reviewed & are unremarkable except as noted in HPI and below PMFSH Past Medical History Medical History Achilles tendon pain CAD (coronary artery disease) Depression DVT (deep venous thrombosis) HTN (hypertension) IBS (irritable bowel syndrome) Left leg weakness Peripheral vascular disease Polio Post-polio syndrome Right foot pain Surgical History Surgical History H/O: hysterectomy Stented coronary artery Family History Family History Other Family history of arthritis Family history of mental disorder Hypertension Social History Social History Smoking status: Never smoker Alcohol intake: current Drinks per week: 1 Substance use: never Gender identity (if verbalized by the patient): Female Sexual Orientation (if Verbalized by the Patient): Straight or Heterosexual Spiritual care concerns: No Exam Const: Nutritional Appearance: well nourished Orientation/consciousness: patient oriented x3 Limitations: no limitations HENMT: Head: normal to inspection Face and sinus: normal facial exam Mouth: Yes Normal oral and palatal mucosa present Eyes: Conjunctivae: conjunctivae normal Pupils: Equal, round and reactive pupils present EOM: EOMs intact bilaterally Neck: Neck: normal visual inspection, no lymphadenopathy and no meningeal signs Chest: Chest palpation & inspection: normal inspection of the chest Resp: Effort & Inspection: normal respiratory effort Auscultation: rhonchi and diminished lung sounds Cardio: Rate: regular rate Rhythm: regular rhythm GI: GI Palp: Yes Soft to palpation Skin: General skin exam: normal color Rashes: no rashes Wounds: no wounds Neuro: General: patient oriented x3, moves all extremities and no meningeal signs Extrem: General: normal to inspection Psych: Mental Status: mental status grossly normal Affect: normal affect Course Course Emergency Course: Patient here with dyspnea and O2 sats and vitals are stable O2 sats currently 98% on room air but the patient has a coarse breath sounds with no wheezing does have a productive cough, will administer a DuoNeb. EKG performed as well as chest x-ray and labs, and COVID influenz
[2023-03-23 13:58] LABS: Hematocrit 37.7 % (35.0-42.0); Hemoglobin 12.3 g/dL (11.7-13.8); Mean Corpuscular HGB Conc 32.6 g/dL (32.0-36.0); Mean Corpuscular Hemoglobin 29.3 pg (27.0-31.0); Mean Corpuscular Volume 89.8 fL (78.0-102.0); Mean Platelet Volume 11.2 fl (9.2-11.8); Platelet Count Result 164 K/mm3 (150-420); Red Cell Distribution Width 13.6 % (11.6-14.4); White Blood Count 5.2 K/mm3 (4.8-10.8)
[2023-03-23 14:09] LABS: Neutrophils Percent Manual 62 % (46-73); Total Cells Counted 100
[2023-03-23 14:10] LABS: Band Neutrophils Percent 1 % (0-6); Lymphocytes Absolute Manual 1.19 K/mm3 (1.1-4.5); Lymphocytes Percent Manual 23 % (18-44); Monocytes Absolute Manual 0.41 K/mm3 (0.1-0.90); Monocytes Percent Manual 8 % (3-9); Neutrophils Absolute Manual 3.27 K/mm3 (1.7-7.2)
[2023-03-23 14:11] LABS: Basophils Percent Manual 0 % (0-1); Eosinophils Absolute Manual 0.31 K/mm3 (0.02-0.5); Eosinophils Percent Manual 6 % (1-6); Platelet Estimate Adequate (Adequate)
[2023-03-23 14:12] LABS: D Dimer 0.19 mg/L (0.19-0.50)
[2023-03-23 14:19] LABS: Partial Thromboplastin Time 53.1 SEC (23.90-30.70); Prothrombin Time 55.1 Seconds (9.50-12.10)
[2023-03-23 14:32] LABS: Alanine Aminotransferase 16 U/L (14-59); Albumin Level 2.8 g/dL (3.4-5.0); Alkaline Phosphatase 72 U/L (46-116); Anion Gap 8 mmol/L (8-16); Aspartate Amino Transferase 17 U/L (15-37); Bilirubin,Total 0.4 mg/dL (0.00-1.00); Blood Urea Nitrogen 7 mg/dL (7-18); Calcium 8.7 mg/dL (8.5-10.1); Carbon Dioxide 28 mmol/L (21-32); Chloride 101 mmol/L (98-108); Estimated Glomerular Filt Rate > 60; Glucose 118 mg/dL (70-99); Magnesium 1.6 mg/dL (1.8-2.4); NT Pro B Type Natriuretic Pept 317 pg/mL (0-450); Osmolality Calculated 283 mOsm/kg (285-295); Potassium 3.5 mmol/L (3.5-5.1); Sodium 137 mmol/L (136-145); Total Protein 6.3 g/dL (6.4-8.2); Troponin I 6.9 ng/L (0.00-60.4)
[2023-03-23 14:37] LABS: Influenza A QL RT-PCR Negative (Negative); Influenza B QL RT-PCR Negative (Negative); SARS-CoV-2 RNA PCR Negative (Negative)
[2023-03-23 14:39] LABS: RSV RNA, RT-PCR Negative (Negative)
--- NOTE | 2023-03-23 14:40 | PC.NURSE ---
Lab reports INR 5.7, erp is aware.
[2023-03-23 14:41] LABS: INR 5.7
[2023-03-23 14:43] LABS: Schistocytes None Seen (NORMAL)
[2023-03-23] MEDS: AZITHROMYCIN 250 MG TABLET 500 MG PO (14:55)
[2023-03-23] MEDS: PHYTONADIONE INJ 10 MG/ML AMP SUB-Q (14:55)
--- NOTE | 2023-03-25 17:26 | PC.NURSE ---
PRELIMINARY BLOOD CULTURE RESULTS X 2: NO GROWTH TO DATE. NO ACTION NEEDED.
--- NOTE | 2023-03-30 14:15 | PC.NURSE ---
blood culture reviewed, no growth after 5 days
== END 2023-03-23 15:08 | disposition home or self-care (01) ==
PROVIDERS: Emergency Provider Emergency Medicine; PCP Internal Medicine
DX: R79.1 Abnormal coagulation profile (principal); J06.9 Acute upper respiratory infection, unspecified; R06.02 Shortness of breath; I25.10 Atherosclerotic heart disease of native coronary artery without angina pectoris; I10 Essential (primary) hypertension; Z86.718 Personal history of other venous thrombosis and embolism; Z79.01 Long term (current) use of anticoagulants; Z79.899 Other long term (current) drug therapy
CPT/HCPCS: 36415; 71045; 80053; 83735; 83880; 84484; 85025; 85380; 85610; 85730; 87040; 87637; 93005; 96372; 99284; A9270; J3430

== ENCOUNTER 2023-03-27 14:46 | Outpatient (CLI) | payer MEDICARE, SELFPAY ==
[2023-03-27 15:19] LABS: Prothrombin Time 11.4 Seconds (9.50-12.10)
[2023-03-27 15:31] LABS: Cholesterol 161 mg/dL (0-200); HDL Direct 37 mg/dL (40-60); LDL Cholesterol Calculated 88 mg/dL (<130); Triglycerides 178 mg/dL (0-150)
== END 2023-03-27 14:47 | disposition home or self-care (01) ==
LOC: CHSLAB 14:49
PROVIDERS: PCP Family Medicine; Visit Provider Family Medicine
DX: I82.409 Acute embolism and thrombosis of unspecified deep veins of unspecified lower extremity (principal); I10 Essential (primary) hypertension
CPT/HCPCS: 36415; 80061; 85610

== ENCOUNTER 2023-04-16 09:26 | Outpatient (CLI) | payer MEDICARE, SELFPAY ==
[2023-04-16 09:56] LABS: INR 3.8; Prothrombin Time 38.1 Seconds (9.50-12.10)
== END 2023-04-16 09:27 | disposition home or self-care (01) ==
LOC: CHSLAB 09:29
PROVIDERS: PCP Family Medicine; Visit Provider Family Medicine
DX: I82.409 Acute embolism and thrombosis of unspecified deep veins of unspecified lower extremity (principal); R35.0 Frequency of micturition
CPT/HCPCS: 36415; 85610; 87077; 87086; 87088; 87186

== ENCOUNTER 2023-04-24 12:29 | Outpatient (CLI) | payer MEDICARE, SELFPAY ==
[2023-04-24 12:53] LABS: Appearance Urine Clear (Clear); Bilirubin Urine Negative (Negative); Blood Urine Negative (Negative); Color Urine Light Yellow (Yellow); Glucose Urine UA Negative (Negative); Ketones Urine Negative (Negative); Leukocyte Esterase Ur Negative (Negative); Nitrate Urine Negative (Negative); Protein Urine Negative (Negative); Urobilinogen Urine 0.2 mg/dL (0.2-1.0); pH Urine 5.5 (5.0-8.0)
[2023-04-24 13:00] LABS: Add Urine Microscopic? NO
[2023-04-24 13:02] LABS: INR 3.7; Prothrombin Time 37.2 Seconds (9.50-12.10)
== END 2023-04-24 12:30 | disposition home or self-care (01) ==
LOC: CHSLAB 12:31
PROVIDERS: PCP Family Medicine; Visit Provider Family Medicine
DX: R53.1 Weakness (principal); N39.0 Urinary tract infection, site not specified; I82.409 Acute embolism and thrombosis of unspecified deep veins of unspecified lower extremity
CPT/HCPCS: 36415; 81003; 85610; 87086

== ENCOUNTER 2023-05-26 22:40 | Observation (INO) | payer MEDICARE, SELFPAY ==
--- NOTE | ~2023-05-26 | CT_ITS ---
Clinical Indication: Hypotensive, syncope CT Scan of the Chest with Contrast: Technique: Contiguous sections were acquired throughout the chest after intravenous administration of 100 cc of Omnipaque 350. Dose reduction technique was used on this scan by utilizing automated expos ure control and iterative reconstruction technique. The dose-length product (DLP) was 403.56 mGy-cm. COMPARISON: 03/05/2023 Findings: There is no evidence of any significant mediastinal, hilar or axillary lymphadenopathy. There is no f illing defect in the pulmonary arterial tree to suggest pulmonary embolus. There is no evidence of ao rtic dissection or aneurysm. There is no evidence of pleural or pericardial effusion. The lungs are clear. No pulmonary nodules or infiltrates are noted. Images through the upper abdomen reveal no abnormalities. There is a transverse fracture the upper st ernal body, with probable partial callus formation, likely a subacute fracture. Impression: No evidence of pulmonary embolus, aortic dissection, or aortic aneurysm. Clear lungs. Healing, probable subacute fracture of the upper sternal body. Reviewed, dictated and finalized at location . HER CRAFTER Impression: No evidence of pulmonary embolus, aortic dissection, or aortic aneurysm. Clear lungs. Healing, probable subacute fracture of the upper sternal body.
[2023-05-26 22:49] VITALS: BP 178/86; PULSE 91; RESP 18; TEMP 36.1; O2SAT 96
--- NOTE | 2023-05-26 23:00 | ED.GENADULT ---
HPI - General Adult General Chief complaint: Wound/Laceration Stated complaint: Left Leg Wound Time Seen by Provider: 05/26/23 22:44 History of Present Illness HPI narrative: Linda is an 82F with a PMH of lymphedema, depression, DVT, CAD and PAD as well as recent covid presented to the ED with a left lower extremity skin tear. She is not sure how it happened but it started this morning. Any time she starts walking it bleeds but when she puts her legs up it stops. She also reports that she has been weak since having covid. She denies any dyspnea, CP or lightheadedness. She just feels as if she does not have the motivation to start doing things. She could not tolerate the sertraline as it gave her diarrhea. Related Data Home Medications Medication Instructions Recorded Confirmed furosemide 20 mg tablet 20 mg PO DAILY 10/15/20 05/26/23 rosuvastatin 10 mg tablet 10 mg PO DAILY 10/15/20 05/26/23 nitroglycerin 0.4 mg sublingual 0.4 mg sublingual Q5M PRN Chest 03/27/23 05/26/23 tablet Pain albuterol sulfate 90 mcg/actuation 2 puff inhalation Q4H PRN 05/31/23 aerosol inhaler apixaban 5 mg tablet (Eliquis) 5 mg PO BID 05/31/23 aspirin 81 mg tablet,delayed 81 mg PO DAILY 05/31/23 release Allergies Allergy/AdvReac Type Severity Reaction Status Date / Time amoxicillin Allergy Unknown Verified 06/06/23 07:42 prednisone AdvReac Dizziness Verified 06/06/23 07:42 Review of Systems Review of Systems: All systems reviewed & are unremarkable except as noted in HPI and below PMFSH Past Medical History Medical History Achilles tendon pain CAD (coronary artery disease) Depression DVT (deep venous thrombosis) HTN (hypertension) IBS (irritable bowel syndrome) Left leg weakness Peripheral vascular disease Polio Post-polio syndrome Right foot pain Surgical History Surgical History H/O: hysterectomy Stented coronary artery Family History Family History Other Family history of arthritis Family history of mental disorder Hypertension Social History Social History Smoking status: Never smoker Alcohol intake: never Drinks per week: 1 Substance use: former Substance use type: marijuana Lack of Transportation: No Lack of Food: Never True Current Housing: I Have Housing Concerned About Future Housing: No Difficulty Paying Gas/Electric Bills: No Difficulty Paying for Meds: No Currently Unemployed: No Education: High School Diploma/GED Difficulty w/ Childcare or Family Care: No Gender identity (if verbalized by the patient): Female Sexual Orientation (if Verbalized by the Patient): Straight or Heterosexual Spiritual care concerns: No Exam Const: General: healthy appearing and no acute distress Nutritional Appearance: well nourished Orientation/consciousness: patient oriented x3 HENMT: Head: normal to inspection Ears: external ears normal Eyes: Conjunctivae: conjunctivae normal Pupils: Equal, round and reactive pupils present Neck: Neck: normal visual inspection Chest: Chest palpation & inspection: normal inspection of the chest Resp: Effort & Inspection: normal respiratory effort Auscultation: clear to auscultation bilaterally Cardio: Rate: regular rate Rhythm: regular rhythm GI: Inspection: non-distended GI Palp: Yes Soft to palpation, No Tenderness to palpation present (GI) and No Guarding due to palpation present (GI) Back/Spine/Pelvis: Back: no CVA tenderness Skin: General skin exam: normal color Rashes: no rashes Neuro: General: patient oriented x3 and moves all extremities Extrem: General: normal to inspection Psych: Mental Status: mental status grossly normal Course Course Emergency Course: Ordered labs and glued wound
[2023-05-26 23:35] LABS: Basophils Absolute Auto 0.05 K/mm3 (0.00-0.10); Basophils Percent Auto 0.8 % (0.0-1.0); Eosinophils Absolute Auto 0.21 K/mm3 (0.02-0.50); Eosinophils Percent Auto 3.3 % (1.0-6.0); Hematocrit 37.4 % (35.0-42.0); Hemoglobin 12.3 g/dL (11.7-13.8); Immature Granulocyte Absolute 0.01 K/mm3 (0.00-0.00); Immature Granulocyte Percent A 0.2 % (0.0-0.0); Lymphocytes Absolute Auto 2.34 K/mm3 (1.10-4.50); Lymphocytes Percent Auto 36.3 % (18.0-42.0); Mean Corpuscular HGB Conc 32.9 g/dL (32.0-36.0); Mean Corpuscular Hemoglobin 29.8 pg (27.0-31.0); Mean Corpuscular Volume 90.6 fL (78.0-102.0); Mean Platelet Volume 11.9 fl (9.2-11.8); Monocytes Absolute Auto 0.92 K/mm3 (0.10-0.90); Monocytes Percent Auto 14.3 % (2.0-11.0); Neutrophils Absolute Auto 2.9 K/mm3 (1.7-7.2); Neutrophils Percent Auto 45.1 % (50.0-70.0); Platelet Count Result 163 K/mm3 (150-420); Red Blood Count 4.13 M/mm3 (4.20-5.40); White Blood Count 6.5 K/mm3 (4.8-10.8)
[2023-05-26 23:56] LABS: INR 11.1
[2023-05-26 23:59] LABS: Alanine Aminotransferase 15 U/L (14-59); Albumin Level 2.8 g/dL (3.4-5.0); Alkaline Phosphatase 74 U/L (46-116); Anion Gap 6 mmol/L (8-16); Aspartate Amino Transferase 30 U/L (15-37); Bilirubin,Total 0.3 mg/dL (0.00-1.00); Blood Urea Nitrogen 7 mg/dL (7-18); Calcium 8.2 mg/dL (8.5-10.1); Carbon Dioxide 34 mmol/L (21-32); Chloride 107 mmol/L (98-108); Estimated CRCL calculation 35 ml/min; Estimated Glomerular Filt Rate 56; Glucose 139 mg/dL (70-99); Magnesium 1.4 mg/dL (1.8-2.4); Osmolality Calculated 304 mOsm/kg (285-295); Potassium 2.8 mmol/L (3.5-5.1); Sodium 147 mmol/L (136-145); Thyroid Stimulating Hormone 2.77 uIU/mL (0.36-3.74); Total Protein 6.2 g/dL (6.4-8.2)
[2023-05-27] MEDS: PHYTONADIONE 5 MG TABLET (00:06)
--- NOTE | 2023-05-27 00:40 | PC.NURSE ---
POC for admit discussed c pt. Call placed to floor rn relief chargeViry. Pt will go to Rm 204.
[2023-05-27 00:41] VITALS: BP 172/64; PULSE 75; RESP 20; TEMP 36.2; O2SAT 95
[2023-05-27] MEDS: POTASSIUM CHLORIDE 20 MEQ PACKET (FOR LIQUID) PO (00:53)
[2023-05-27] MEDS: KCL 20MEQ/0.9% SOD CHL 1,000 ML 100 ML IV CONT (00:54)
[2023-05-27] MEDS: MAGNESIUM SULF 4 GM/WATER100ML 4 GM/100 ML BAG IVPB (01:09)
[2023-05-27 01:18] VITALS: BP 170/68; PULSE 70; RESP 18; TEMP 36.6; O2SAT 95
[2023-05-27 01:54] VITALS: BP 183/67; PULSE 78; RESP 18; TEMP 36.4; O2SAT 95; BMI 25.1
--- NOTE | 2023-05-27 02:07 | ADMGEN ---
This patient, Linda Garza, was admitted to 2nd Floor Room 204-2. Patient/family oriented to hospital policies and general routines including ID bracelet, bed and alarms, visiting hours, pain management, procedures, bathroom and other care routines, personal items, smoking policy, room service/diet, and visiting hours. Information on how to activate the Rapid Response Team has been discussed. Patient/Family are encouraged to report perceived risks to care and to ask questions if they do not understand what they are told or what they should do.
[2023-05-27 04:00] VITALS: PULSE 78
[2023-05-27] MEDS: HYDROcodone/acetaminophen (*CRX) 5-325 MG TABLET 1 TAB PO (04:40)
[2023-05-27 06:56] LABS: Hemoglobin 11.6 g/dL (11.7-13.8); Mean Corpuscular HGB Conc 33.1 g/dL (32.0-36.0); Mean Corpuscular Volume 90.4 fL (78.0-102.0); Platelet Count Result 152 K/mm3 (150-420); Red Blood Count 3.87 M/mm3 (4.20-5.40); White Blood Count 6.2 K/mm3 (4.8-10.8)
[2023-05-27 07:05] LABS: Anion Gap 4 mmol/L (8-16); Blood Urea Nitrogen 6 mg/dL (7-18); Calcium 8.2 mg/dL (8.5-10.1); Carbon Dioxide 31 mmol/L (21-32); Chloride 106 mmol/L (98-108); Estimated CRCL calculation 37 ml/min; Estimated Glomerular Filt Rate 60; Glucose 111 mg/dL (70-99); Magnesium 2.1 mg/dL (1.8-2.4); Osmolality Calculated 290 mOsm/kg (285-295); Potassium 3.3 mmol/L (3.5-5.1); Sodium 141 mmol/L (136-145)
[2023-05-27 07:08] LABS: Neutrophils Percent Manual 44 % (46-73); Total Cells Counted 100
[2023-05-27 07:09] LABS: Band Neutrophils Percent 0 % (0-6); Basophils Percent Manual 0 % (0-1); Eosinophils Absolute Manual 0.06 K/mm3 (0.02-0.5); Eosinophils Percent Manual 1 % (1-6); Lymphocytes Absolute Manual 2.41 K/mm3 (1.1-4.5); Lymphocytes Percent Manual 39 % (18-44); Monocytes Absolute Manual 0.99 K/mm3 (0.1-0.90); Monocytes Percent Manual 16 % (3-9); Neutrophils Absolute Manual 2.72 K/mm3 (1.7-7.2); Platelet Estimate Adequate (Adequate)
[2023-05-27 07:17] LABS: Prothrombin Time 80.7 Seconds (9.50-12.10)
[2023-05-27 07:20] LABS: INR 8.6
--- NOTE | 2023-05-27 07:32 | PC.NURSE ---
Notified provider of PT/INR results.
[2023-05-27 08:00] VITALS: BP 60/36; PULSE 58; PULSE 67; PULSE 68; RESP 14; RESP 16; TEMP 36.2; O2SAT 96; O2SAT 98
[2023-05-27] MEDS: SODIUM CHLORIDE 0.9% IV 1,000 ML 999 ML (08:10)
[2023-05-27] MEDS: SODIUM CHLORIDE 0.9% IV 1,000 ML 999 ML IV CONT (08:10)
--- NOTE | 2023-05-27 08:24 | ECG_ITS ---
Measurements Intervals [place] Rate: 66 P: 65 ID: 168 QRS: 56 QRSD: 84 T: 66 QT: 482 QTc: 506 Interpretive Statements SINUS RHYTHM NONSPECIFIC ST ABNORMALITY BORDERLINE ECG COMPARED TO ECG 03/23/2023 13:57:27 NO SIGNIFICANT CHANGE Electronically Signed On 05-27-2023 15:34:24 CLASSIFYING MACHINE OPERATOR by Christofer Ford M.D.
--- NOTE | 2023-05-27 08:59 | PC.NURSE ---
At 0805 pt became unresponsive, clammy and cold. RN called for help and tried to get pt to answer by calling her name, rubbing her chest and shaking her shoulders. Pt was transfered to the bed with a 4 person lift and rapid response was called. B/P was 60/36 at 0805. New IV placed in RFA 20 G. NS started at 999/h. Pt became responsive after 5 minutes. Pt heart did not stop and she was breathing throught the unresponsive episode. ER doctor did come to pt room as well as the rapid response team. 0815 B/P 85/59, 69 pulse, 0830 B/P 110/52 pulse 70. BAR STEWARD Adrianna notified of change in PT condition. EKG showed prolonged QT. All medications held at this time. 0850 B/P 121/59 pulse 73, Pt responsive A/O at present. 0905 131/52 pulse 68 with O2 sat of 98% on 2L/NC. Pt's daughter Raquel called and aprized of pt condition change.
[2023-05-27 09:11] LABS: NT Pro B Type Natriuretic Pept 587 pg/mL (0-450)
--- NOTE | 2023-05-27 09:42 | PM.SD2 ---
Same Day Admit/Disch: HPI History of Present Illness Chief complaint: HYPOKALEMIA Narrative: Linda Garza is a 82 year old female Linda is an 82F with a PMH of lymphedema, depression, DVT, CAD and PAD as well as recent covid presented to the ED with a left lower extremity skin tear. She is not sure how it happened but it started this morning. Any time she starts walking it bleeds but when she puts her legs up it stops. She also reports that she has been weak since having covid. She denies any dyspnea, CP or lightheadedness. She just feels as if she does not have the motivation to start doing things. She could not tolerate the sertraline as it gave her diarrhea. [facility] Past Medical History Medical History Achilles tendon pain CAD (coronary artery disease) Depression DVT (deep venous thrombosis) HTN (hypertension) IBS (irritable bowel syndrome) Left leg weakness Peripheral vascular disease Polio Post-polio syndrome Right foot pain Surgical History Surgical History H/O: hysterectomy Stented coronary artery Family History Family History Other Family history of arthritis Family history of mental disorder Hypertension Social History Social History Smoking status: Never smoker Alcohol intake: never Drinks per week: 1 Substance use: former Substance use type: marijuana Lack of Transportation: No Lack of Food: Never True Current Housing: I Have Housing Concerned About Future Housing: No Difficulty Paying Gas/Electric Bills: No Difficulty Paying for Meds: No Currently Unemployed: No Education: High School Diploma/GED Difficulty w/ Childcare or Family Care: No Gender identity (if verbalized by the patient): Female Sexual Orientation (if Verbalized by the Patient): Straight or Heterosexual Spiritual care concerns: No Same Day Admit/Disch: Med Pre-admit Medications Home Medications Medication Instructions Recorded Confirmed Type furosemide 20 mg tablet 20 mg PO DAILY 10/15/20 05/26/23 History rosuvastatin 10 mg tablet 10 mg PO DAILY 10/15/20 05/26/23 History nitroglycerin 0.4 mg sublingual 0.4 mg sublingual Q5M PRN Chest 03/27/23 05/26/23 History tablet Pain alprazolam 1 mg tablet 1 mg PO PRN Anxiety #10 tabs 05/30/23 Rx albuterol sulfate 90 mcg/actuation 2 puff inhalation Q4H PRN 05/31/23 History aerosol inhaler apixaban 5 mg tablet (Eliquis) 5 mg PO BID 05/31/23 History aspirin 81 mg tablet,delayed 81 mg PO DAILY 05/31/23 History release amitriptyline 25 mg tablet 25 mg PO QHS #90 tabs 06/06/23 06/06/23 Rx magnesium sulfate 100 mg capsule 100 mg PO DAILY #90 caps 06/06/23 Rx potassium chloride 20 mEq 20 meq PO DAILY #90 tabs 06/06/23 Rx tablet,extended release Review of Systems Review of Systems leg wound All systems reviewed & are unremarkable except as noted in HPI and below Exam Const: General: cooperative and no acute distress HENMT: Head: normal to inspection Eyes: General: appearance normal, both eyes and all related structures Chest: Chest palpation & inspection: normal inspection of the chest Resp: Effort & Inspection: able to speak in complete sentences GI: Inspection: normal to inspection Auscultation: normal bowel sounds Urinary Catheter: Urinary Catheter: patent and draining DS: Data Data Completed and Pending Labs on day of discharge: Labs from last 24 hours 05/27/23 05/27/23 05/26/23 08:24 06:47 23:26 WBC 6.2 6.5 RBC 3.87 L 4.13 L Hgb 11.6 L 12.3 Hct 35.0 37.4 MCV 90.4 90.6 MCH 30.0 29.8 MCHC 33.1 32.9 RDW 14.0 14.0 Plt Count 152 163 MPV 12.0 H 11.9 H Immature Gran % (Auto) Not Reportable 0.2 H Neut % (Auto) Not Reportable 45.1 L Lymph % (Auto)
[2023-05-27 10:50] LABS: Hematocrit 37.8 % (35.0-42.0); Hemoglobin 12.3 g/dL (11.7-13.8); Mean Corpuscular HGB Conc 32.5 g/dL (32.0-36.0); Mean Corpuscular Hemoglobin 29.5 pg (27.0-31.0); Mean Corpuscular Volume 90.6 fL (78.0-102.0); Mean Platelet Volume 11.9 fl (9.2-11.8); Platelet Count Result 147 K/mm3 (150-420); Red Blood Count 4.17 M/mm3 (4.20-5.40); White Blood Count 5.8 K/mm3 (4.8-10.8)
[2023-05-27 11:12] LABS: Band Neutrophils Percent 0 % (0-6); Eosinophils Absolute Manual 0.11 K/mm3 (0.02-0.5); Eosinophils Percent Manual 2 % (1-6); Lymphocytes Absolute Manual 1.62 K/mm3 (1.1-4.5); Lymphocytes Percent Manual 28 % (18-44); Monocytes Absolute Manual 0.92 K/mm3 (0.1-0.90); Monocytes Percent Manual 16 % (3-9); Neutrophils Absolute Manual 3.13 K/mm3 (1.7-7.2); Neutrophils Percent Manual 54 % (46-73); Platelet Estimate Adequate (Adequate); Total Cells Counted 100
[2023-05-27 12:00] VITALS: PULSE 100
--- NOTE | 2023-05-27 14:01 | PC.NURSE ---
Pt transfered to [facility] via ambulance. Transported by [facility]. Report was called to natacha by this RN.
--- NOTE | 2023-06-26 08:25 | PC.NURSE ---
ON 05/27/23 this pt received NS over 1 hour at 999ml/H at 0847 to 0947. She had a 1L NS bag with 20meq of K that was started at 0848 then stoped at 0850 and restarted again at 0915 and completed at 1054. CHARLENE MEEHAN
--- NOTE | 2023-06-26 09:56 | PC.NURSE ---
The stop time on the 1L NS with K in 05/27/23 is 1054. CHARLENE MEEHAN
== END 2023-05-27 12:40 | disposition short-term general hospital (02) ==
LOC: CHSED 05-27 00:34 → CHS2ND 05-27 00:55
PROVIDERS: Emergency Medicine; Nurse Practitioner Family; Admitting Provider Internal Medicine; Emergency Provider Family Medicine; PCP Family Medicine; Visit Provider Internal Medicine
DX: E83.42 Hypomagnesemia (principal); S81.812A Laceration without foreign body, left lower leg, initial encounter; R79.89 Other specified abnormal findings of blood chemistry; R55 Syncope and collapse; I95.9 Hypotension, unspecified; R79.1 Abnormal coagulation profile; E87.0 Hyperosmolality and hypernatremia; E87.6 Hypokalemia; I89.0 Lymphedema, not elsewhere classified; R94.31 Abnormal electrocardiogram [ECG] [EKG]; F32.A Depression, unspecified; F41.9 Anxiety disorder, unspecified; I25.10 Atherosclerotic heart disease of native coronary artery without angina pectoris; Z95.5 Presence of coronary angioplasty implant and graft; I10 Essential (primary) hypertension; I73.9 Peripheral vascular disease, unspecified; K58.9 Irritable bowel syndrome, unspecified; G14 Postpolio syndrome; F12.90 Cannabis use, unspecified, uncomplicated; Z86.16 Personal history of COVID-19; Z86.718 Personal history of other venous thrombosis and embolism; Z79.51 Long term (current) use of inhaled steroids; Z79.01 Long term (current) use of anticoagulants; Z79.82 Long term (current) use of aspirin; Z79.899 Other long term (current) drug therapy; Z82.49 Family history of ischemic heart disease and other diseases of the circulatory system
CPT/HCPCS: G0168; 12001; 36415; 71275; 80048; 80053; 83735; 83880; 84443; 84484; 85025; 85610; 93005; 96365; 96367; 99285; A9270; G0378; J3475; J3480; J7030; Q9967

== ENCOUNTER 2023-06-06 09:45 | Outpatient (CLI) | payer MEDICARE, SELFPAY ==
[2023-06-06 09:58] LABS: Basophils Absolute Auto 0.07 K/mm3 (0.00-0.10); Eosinophils Absolute Auto 0.22 K/mm3 (0.02-0.50); Eosinophils Percent Auto 3.3 % (1.0-6.0); Hematocrit 37.6 % (35.0-42.0); Hemoglobin 12.7 g/dL (11.7-13.8); Immature Granulocyte Absolute 0.01 K/mm3 (0.00-0.00); Immature Granulocyte Percent A 0.1 % (0.0-0.0); Lymphocytes Absolute Auto 2.06 K/mm3 (1.10-4.50); Lymphocytes Percent Auto 30.9 % (18.0-42.0); Mean Corpuscular HGB Conc 33.8 g/dL (32.0-36.0); Mean Corpuscular Hemoglobin 30.5 pg (27.0-31.0); Mean Corpuscular Volume 90.4 fL (78.0-102.0); Mean Platelet Volume 11.1 fl (9.2-11.8); Monocytes Absolute Auto 0.93 K/mm3 (0.10-0.90); Monocytes Percent Auto 13.9 % (2.0-11.0); Neutrophils Absolute Auto 3.4 K/mm3 (1.7-7.2); Neutrophils Percent Auto 50.8 % (50.0-70.0); Platelet Count Result 202 K/mm3 (150-420); Red Blood Count 4.16 M/mm3 (4.20-5.40); Red Cell Distribution Width 13.2 % (11.6-14.4); White Blood Count 6.7 K/mm3 (4.8-10.8)
[2023-06-06 10:24] LABS: Alanine Aminotransferase 16 U/L (14-59); Albumin Level 3.5 g/dL (3.4-5.0); Alkaline Phosphatase 77 U/L (46-116); Anion Gap 7 mmol/L (8-16); Aspartate Amino Transferase 18 U/L (15-37); Bilirubin,Total 0.6 mg/dL (0.00-1.00); Blood Urea Nitrogen 6 mg/dL (7-18); Carbon Dioxide 30 mmol/L (21-32); Chloride 97 mmol/L (98-108); Estimated Glomerular Filt Rate > 60; Glucose 115 mg/dL (70-99); Magnesium 1.5 mg/dL (1.8-2.4); Osmolality Calculated 276 mOsm/kg (285-295); Sodium 134 mmol/L (136-145); Total Protein 6.6 g/dL (6.4-8.2)
== END 2023-06-06 09:46 | disposition home or self-care (01) ==
LOC: CHSLAB 09:47
PROVIDERS: PCP Family Medicine; Visit Provider Family Medicine
DX: I82.409 Acute embolism and thrombosis of unspecified deep veins of unspecified lower extremity (principal)
CPT/HCPCS: 36415; 80053; 83735; 85025

== ENCOUNTER 2023-07-05 10:57 | Outpatient (CLI) | payer MEDICARE, SELFPAY ==
--- NOTE | ~2023-07-05 | XR_ITS ---
EXAM: XR hand LT min 3V DATE: 07/05/2023 11:16 HISTORY: M79.642 - Pain in left hand, base of thumb . COMPARISON: None available. FINDINGS: Decreased mineralization. No fracture or dislocation. No lytic or blastic lesion. Scattere d moderate degenerative changes consistent with osteoarthritis, most notably at the DIP joints of the fingers and PIP joints of the thumb and fingers, the triscaphe joint, and the trapeziometacarpal dom nt. No erosion or periosteal change. Soft tissues within normal limits. 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 Reviewed, dictated and finalized at location K. [facility]IC[facility] IMPRESSION: Moderate polyarticular osteoarthritic arthritis of the hand and wri st.
== END 2023-07-05 10:58 | disposition home or self-care (01) ==
LOC: CHSIMG 10:59
PROVIDERS: PCP Family Medicine; Visit Provider Family Medicine
DX: M19.042 Primary osteoarthritis, left hand (principal); M79.642 Pain in left hand
CPT/HCPCS: 73130

== ENCOUNTER 2023-08-08 13:51 | Outpatient (CLI) | payer MEDICARE, SELFPAY ==
[2023-08-08 14:09] LABS: Basophils Absolute Auto 0.05 K/mm3 (0.00-0.10); Basophils Percent Auto 0.9 % (0.0-1.0); Eosinophils Absolute Auto 0.11 K/mm3 (0.02-0.50); Hematocrit 40.5 % (35.0-42.0); Hemoglobin 12.9 g/dL (11.7-13.8); Immature Granulocyte Absolute 0.02 K/mm3 (0.00-0.00); Immature Granulocyte Percent A 0.4 % (0.0-0.0); Lymphocytes Absolute Auto 1.75 K/mm3 (1.10-4.50); Lymphocytes Percent Auto 31.1 % (18.0-42.0); Mean Corpuscular HGB Conc 31.9 g/dL (32.0-36.0); Mean Corpuscular Hemoglobin 29.2 pg (27.0-31.0); Mean Corpuscular Volume 91.6 fL (78.0-102.0); Mean Platelet Volume 10.6 fl (9.2-11.8); Monocytes Absolute Auto 0.68 K/mm3 (0.10-0.90); Monocytes Percent Auto 12.1 % (2.0-11.0); Neutrophils Percent Auto 53.5 % (50.0-70.0); Platelet Count Result 212 K/mm3 (150-420); Red Blood Count 4.42 M/mm3 (4.20-5.40); Red Cell Distribution Width 12.6 % (11.6-14.4); White Blood Count 5.6 K/mm3 (4.8-10.8)
[2023-08-08 15:34] LABS: Alanine Aminotransferase 28 U/L (14-59); Albumin Level 2.8 g/dL (3.4-5.0); Alkaline Phosphatase 67 U/L (46-116); Anion Gap 8 mmol/L (8-16); Aspartate Amino Transferase 16 U/L (15-37); Bilirubin,Total 0.5 mg/dL (0.00-1.00); Blood Urea Nitrogen 15 mg/dL (7-18); CRP 1.1 mg/dL (0.0-0.9); Calcium 8.5 mg/dL (8.5-10.1); Carbon Dioxide 26 mmol/L (21-32); Chloride 102 mmol/L (98-108); Estimated Glomerular Filt Rate 58; Folic Acid 14.4 ng/mL (8.6->20); Glucose 107 mg/dL (70-99); Osmolality Calculated 282 mOsm/kg (285-295); Potassium 4.9 mmol/L (3.5-5.1); Sodium 136 mmol/L (136-145); Total Protein 6.2 g/dL (6.4-8.2); Vitamin B12 254 pg/mL (193-986)
[2023-08-10 12:54] LABS: NIL 0.08 IU/mL; Quantiferon TB Plus, 1T NEGATIVE (NEGATIVE); TB1-NIL <0.00 IU/mL; TB2-NIL <0.00 IU/mL
== END 2023-08-08 13:52 | disposition home or self-care (01) ==
LOC: CHSLAB 13:54
PROVIDERS: PCP Family Medicine; Visit Provider Family Medicine
DX: E53.8 Deficiency of other specified B group vitamins (principal); E11.9 Type 2 diabetes mellitus without complications; R63.4 Abnormal weight loss
CPT/HCPCS: 36415; 80053; 82607; 82746; 84443; 85025; 86140; 86480

== ENCOUNTER 2023-08-13 09:22 | Outpatient (CLI) | payer MEDICARE, SELFPAY ==
[2023-08-13 11:57] LABS: Occult Blood Negative (Negative)
== END 2023-08-13 09:23 | disposition home or self-care (01) ==
LOC: CHSLAB 09:24
PROVIDERS: PCP Family Medicine; Visit Provider Family Medicine
DX: R63.4 Abnormal weight loss (principal); R19.7 Diarrhea, unspecified
CPT/HCPCS: 82272

== ENCOUNTER 2023-08-29 12:26 | Emergency (ER) | payer MEDICARE, SELFPAY ==
--- NOTE | ~2023-08-29 | CT_ITS ---
CT head without contrast Indication: Status post fall COMPARISON: 08/31/2021 Technique: Serial scans were obtained through the brain without the administration of contrast. Dose reduction technique was used on this scan by utilizing automated exposure control and iterative recon struction technique. The dose-length product (DLP) was 605.33 mGy-cm. Findings: There is no evidence of intracranial hemorrhage, mass lesion, or acute infarct. The ventri cles and subarachnoid spaces are dilated, consistent with mild atrophy. Low attenuation regions are seen within the periventricular white matter bilaterally, likely representing changes from chronic mi crovascular ischemic disease. There is no evidence of edema, mass effect or midline shift. The visu alized paranasal sinuses and mastoid air cells are clear. Impression: No intracranial hemorrhage, mass, or acute infarct. Atrophy and chronic white matter changes, as above. Reviewed, dictated and finalized at [facility]. REPAIR MECHANIC Impression: No intracranial hemorrhage, mass, or acute infarct. Atrophy and chronic white matter changes, as above.
[2023-08-29 12:29] VITALS: BP 178/65; PULSE 64; RESP 18; TEMP 36.3; O2SAT 96
--- NOTE | 2023-08-29 12:58 | ED.HEATRA ---
HPI - Head Injury General Chief complaint: Head Injury Stated complaint: fall Time Seen by Provider: 08/29/23 12:27 Source: patient and family Mode of arrival: wheelchair Limitations: no limitations History of Present Illness HPI Narrative: this is a 82-year-old female that lost her balance earlier today, had fall and hit the back of her head patient is currently on Blood thinners but there is no lacerations no bleeding no neurological deficits no chest pain shortness of breath. Complaint: head injury Onset (ago): hour(s) Mechanism of Injury: fall Place: home Loss of Consciousness: no Location of injury: occipital Severity: mild Related Data Home Medications Medication Instructions Recorded Confirmed furosemide 20 mg tablet 20 mg PO DAILY 10/15/20 08/26/23 nitroglycerin 0.4 mg sublingual 0.4 mg sublingual Q5M PRN Chest 03/27/23 08/26/23 tablet Pain aspirin 81 mg tablet,delayed 81 mg PO DAILY 05/31/23 08/26/23 release Allergies Allergy/AdvReac Type Severity Reaction Status Date / Time amoxicillin Allergy Unknown Verified 08/29/23 12:33 prednisone AdvReac Dizziness Verified 08/29/23 12:33 Review of Systems Review of Systems: All systems reviewed & are unremarkable except as noted in HPI and below PMFSH Past Medical History Medical History Achilles tendon pain CAD (coronary artery disease) Depression DVT (deep venous thrombosis) Hip pain HTN (hypertension) IBS (irritable bowel syndrome) Left leg weakness Peripheral vascular disease Polio Post-polio syndrome Right foot pain Surgical History Surgical History H/O: hysterectomy Stented coronary artery Family History Family History Other Family history of arthritis Family history of mental disorder Hypertension Social History Social History Smoking status: Never smoker Alcohol intake: never Drinks per week: 1 Substance use: former Substance use type: marijuana Lack of Transportation: No Lack of Food: Never True Current Housing: I Have Housing Concerned About Future Housing: No Difficulty Paying Gas/Electric Bills: No Difficulty Paying for Meds: No Currently Unemployed: No Education: High School Diploma/GED Difficulty w/ Childcare or Family Care: No Gender identity (if verbalized by the patient): Female Sexual Orientation (if Verbalized by the Patient): Straight or Heterosexual Spiritual care concerns: No Exam Const: General: healthy appearing and no acute distress Nutritional Appearance: well nourished Orientation/consciousness: patient oriented x3 Limitations: no limitations HENMT: Head: normal to inspection Eyes: Conjunctivae: conjunctivae normal Neck: Neck: normal visual inspection, no lymphadenopathy and no meningeal signs Chest: Chest palpation & inspection: normal inspection of the chest Resp: Effort & Inspection: normal respiratory effort Auscultation: clear to auscultation bilaterally Cardio: Rate: regular rate Rhythm: regular rhythm GI: GI Palp: Yes Soft to palpation Auscultation: normal bowel sounds Back/Spine/Pelvis: Back: no CVA tenderness Skin: General skin exam: normal color Rashes: no rashes Wounds: no wounds Neuro: General: patient oriented x3, moves all extremities, no meningeal signs and no focal motor deficits Extrem: General: normal to inspection Psych: Mental Status: mental status grossly normal Affect: normal affect Course Course Emergency Course: Patient stable with no current bleeding or lacerations neurologically intact and CT scan performed reviewed which shows no intracranial process no acute abnormalities visualized. Vital Signs Vital signs: Vital Signs Temperature 36.3 C L 08/29/23 12:29 Pulse Rate 64 /07
--- NOTE | 2023-08-29 13:09 | PC.NURSE ---
On 08/29/23, the student, Delia Koch, provided care and completed [facility] documentation on this patient. I have reviewed the student's documentation and agree with the findings.
[2023-08-29 13:13] VITALS: BP 143/61; PULSE 63; RESP 17; TEMP 36.8; O2SAT 97
== END 2023-08-29 13:13 | disposition home or self-care (01) ==
LOC: CHSED 13:07
PROVIDERS: Emergency Provider Emergency Medicine; PCP Nurse Practitioner Family
DX: S09.90XA Unspecified injury of head, initial encounter (principal); I25.10 Atherosclerotic heart disease of native coronary artery without angina pectoris; I10 Essential (primary) hypertension; Z86.718 Personal history of other venous thrombosis and embolism; Z79.82 Long term (current) use of aspirin; Z79.899 Other long term (current) drug therapy; W19.XXXA Unspecified fall, initial encounter
CPT/HCPCS: 70450; 99284

== ENCOUNTER 2023-08-29 13:58 | Outpatient (CLI) | payer MEDICARE, SELFPAY ==
[2023-08-29 14:15] LABS: Basophils Absolute Auto 0.06 K/mm3 (0.00-0.10); Basophils Percent Auto 0.9 % (0.0-1.0); Eosinophils Absolute Auto 0.13 K/mm3 (0.02-0.50); Eosinophils Percent Auto 1.9 % (1.0-6.0); Hematocrit 38.3 % (35.0-42.0); Hemoglobin 12.9 g/dL (11.7-13.8); Immature Granulocyte Absolute 0.01 K/mm3 (0.00-0.00); Immature Granulocyte Percent A 0.1 % (0.0-0.0); Lymphocytes Absolute Auto 1.99 K/mm3 (1.10-4.50); Lymphocytes Percent Auto 29.1 % (18.0-42.0); Mean Corpuscular HGB Conc 33.7 g/dL (32.0-36.0); Mean Corpuscular Hemoglobin 29.4 pg (27.0-31.0); Mean Corpuscular Volume 87.2 fL (78.0-102.0); Mean Platelet Volume 10.7 fl (9.2-11.8); Monocytes Absolute Auto 0.81 K/mm3 (0.10-0.90); Monocytes Percent Auto 11.8 % (2.0-11.0); Neutrophils Absolute Auto 3.8 K/mm3 (1.7-7.2); Neutrophils Percent Auto 56.2 % (50.0-70.0); Platelet Count Result 190 K/mm3 (150-420); Red Blood Count 4.39 M/mm3 (4.20-5.40); Red Cell Distribution Width 12.1 % (11.6-14.4); White Blood Count 6.8 K/mm3 (4.8-10.8)
--- NOTE | 2023-08-29 14:15 | ECG_ITS ---
Measurements Intervals [place] Rate: 61 P: 62 KS: 185 QRS: 56 QRSD: 93 T: 73 QT: 425 QTc: 430 Interpretive Statements SINUS RHYTHM EARLY PRECORDIAL R/S TRANSITION BASELINE ARTIFACT- I, III, AVL, AVF, V5-V6 BORDERLINE ECG COMPARED TO ECG 05/27/2023 08:31:37 NO SIGNIFICANT CHANGES Electronically Signed On 08-29-2023 18:38:29 CONSUMER SERVICES CONSULTANT by Arnulfo Mae D.O.
[2023-08-29 14:55] LABS: Influenza A QL RT-PCR Negative (Negative); Influenza B QL RT-PCR Negative (Negative); RSV RNA, RT-PCR Negative (Negative); SARS-CoV-2 RNA PCR Negative (Negative)
[2023-08-29 14:57] LABS: Alanine Aminotransferase 11 U/L (14-59); Albumin Level 3.3 g/dL (3.4-5.0); Alkaline Phosphatase 64 U/L (46-116); Anion Gap 8 mmol/L (8-16); Aspartate Amino Transferase 23 U/L (15-37); Bilirubin,Total 0.7 mg/dL (0.00-1.00); Blood Urea Nitrogen 12 mg/dL (7-18); Calcium 8.6 mg/dL (8.5-10.1); Carbon Dioxide 26 mmol/L (21-32); Chloride 92 mmol/L (98-108); Estimated Glomerular Filt Rate > 60; Glucose 91 mg/dL (70-99); Osmolality Calculated 261 mOsm/kg (285-295); Potassium 4.3 mmol/L (3.5-5.1); Sodium 126 mmol/L (136-145); Total Protein 6.9 g/dL (6.4-8.2); Troponin I 7.5 ng/L (0.00-60.4)
[2023-08-29 15:03] LABS: Thyroid Stimulating Hormone Reflex 1.97 u/IU/mL (0.36-3.74)
== END 2023-08-29 13:59 | disposition home or self-care (01) ==
LOC: CHSLAB 14:01
PROVIDERS: PCP Family Medicine; Visit Provider Family Medicine
DX: E03.9 Hypothyroidism, unspecified (principal); R53.1 Weakness
CPT/HCPCS: 36415; 80053; 84443; 84484; 85025; 87637; 93005

== ENCOUNTER 2023-08-29 16:25 | Observation (INO) | payer MEDICARE, SELFPAY ==
--- NOTE | ~2023-08-29 | XR_ITS ---
EXAMINATION: XR chest 1V portable DATE: 08/29/2023 17:13 INDICATION: Weakness. TECHNIQUE: A single frontal view of the chest was obtained. COMPARISON: Chest view 03/23/2023, chest CT 05/27/2023 FINDINGS: There is no pneumonia, pleural effusion, or pneumothorax. The heart size is normal. IMPRESSION: 1. No acute cardiopulmonary disease. Reviewed, dictated and finalized at location E. TANKER DRIVER
[2023-08-29 16:26] VITALS: BP 161/74; PULSE 75; RESP 18; TEMP 36.3; O2SAT 96
[2023-08-29] MEDS: SODIUM CHLORIDE 0.9% IV 1,000 ML 150 ML IV CONT (16:55)
[2023-08-29 17:22] LABS: INR 1.1; Partial Thromboplastin Time 31.7 SEC (23.90-30.70); Prothrombin Time 11.6 Seconds (9.50-12.10)
[2023-08-29 17:30] VITALS: BP 143/65; PULSE 68; RESP 20; O2SAT 96
[2023-08-29 17:31] LABS: Lactic Acid Reflex 1.3 mmol/L (0.4-2.0)
[2023-08-29 17:40] LABS: CRP < 0.5 mg/dL (0.0-0.9); NT Pro B Type Natriuretic Pept 389 pg/mL (0-450)
[2023-08-29 18:09] LABS: Appearance Urine Clear (Clear); Bilirubin Urine Negative (Negative); Blood Urine Negative (Negative); Color Urine Yellow (Yellow); Glucose Urine UA Negative (Negative); Ketones Urine 1+ (Negative); Leukocyte Esterase Ur Negative LEU/UL (Negative); Nitrate Urine Negative (Negative); Protein Urine Negative (Negative); Specific Grav Ur 1.025 (1.010-1.020); Urobilinogen Urine 0.2 mg/dL (0.2-1.0)
[2023-08-29 18:15] LABS: Add Urine Microscopic? YES; Bacteria Urine 1+ /hpf; RBC Urine 0-2 /hpf (0-2); Squamous Epithelial Cell Urine Few /hpf (Few)
--- NOTE | 2023-08-29 18:25 | ED.WEAKNESS ---
HPI - Weakness General Chief complaint: Weakness Stated complaint: referral from [facility] – [place], [place]; low sodium Time Seen by Provider: 08/29/23 16:29 Source: patient Mode of arrival: wheelchair Limitations: no limitations History of Present Illness HPI Narrative: this is an 82-year-old female that presented earlier this afternoon in the ER after she sustained a fall at home and hit the back of her head and CT scan performed showed no acute intracranial abnormality acutely. The patient then followed with her primary and gave a history of weakness over the past week and blood work performed by her primary showed that she was hyponatremic and he sent her back to the ER for add advising admission. Patient states that she has been weak for the last week but denies any chest pain or abdominal pain no fever chills no dysuria no hematuria no shortness of breath or chest pain no abdominal pain or flank pain. Patient did have an evaluation and neurologically intact, she does have weakness in her left lower extremity secondary to post-polio syndrome. Complaint: generalized weakness Onset (ago): week(s) Location: generalized Severity: moderate Related Data Home Medications Medication Instructions Recorded Confirmed furosemide 20 mg tablet 20 mg PO DAILY 10/15/20 08/26/23 nitroglycerin 0.4 mg sublingual 0.4 mg sublingual Q5M PRN Chest 03/27/23 08/26/23 tablet Pain aspirin 81 mg tablet,delayed 81 mg PO DAILY 05/31/23 08/26/23 release Allergies Allergy/AdvReac Type Severity Reaction Status Date / Time amoxicillin Allergy Unknown Verified 08/29/23 13:29 prednisone AdvReac Dizziness Verified 08/29/23 13:29 Review of Systems Review of Systems: All systems reviewed & are unremarkable except as noted in HPI and below PMFSH Past Medical History Medical History Achilles tendon pain CAD (coronary artery disease) Depression DVT (deep venous thrombosis) Hip pain HTN (hypertension) IBS (irritable bowel syndrome) Left leg weakness Peripheral vascular disease Polio Post-polio syndrome Right foot pain Surgical History Surgical History H/O: hysterectomy Stented coronary artery Family History Family History Other Family history of arthritis Family history of mental disorder Hypertension Social History Social History Smoking status: Never smoker Alcohol intake: never Drinks per week: 1 Substance use: former Substance use type: marijuana Lack of Transportation: No Lack of Food: Never True Current Housing: I Have Housing Concerned About Future Housing: No Difficulty Paying Gas/Electric Bills: No Difficulty Paying for Meds: No Currently Unemployed: No Education: High School Diploma/GED Difficulty w/ Childcare or Family Care: No Gender identity (if verbalized by the patient): Female Sexual Orientation (if Verbalized by the Patient): Straight or Heterosexual Spiritual care concerns: No Exam Const: General: ill appearing Nutritional Appearance: thin Orientation/consciousness: confusion Limitations: no limitations HENMT: Head: normal to inspection Chest: Chest palpation & inspection: normal inspection of the chest Resp: Effort & Inspection: normal respiratory effort Auscultation: clear to auscultation bilaterally Cardio: Rate: regular rate Rhythm: regular rhythm GI: GI Palp: Yes Soft to palpation : General: Yes bladder normal to palpation Back/Spine/Pelvis: Back: no CVA tenderness Skin: General skin exam: normal color Rashes: no rashes Neuro: General: patient oriented x3 and moves all extremities Extrem: General: normal to inspection Psych: Attitude: cooperative Course Course Emergency Course: patient had CT scan the brain that was showed n
[2023-08-29 18:30] VITALS: BP 161/70; PULSE 64; RESP 20; O2SAT 96
[2023-08-29 18:45] VITALS: PULSE 70; RESP 16; O2SAT 99
[2023-08-29] MEDS: levoFLOXacin 500 MG/D5W 100 ML 500 MG/100 ML BAG 100 MG IVPB (18:54)
--- NOTE | 2023-08-29 19:34 | PC.NURSE ---
Pt assisted c SBS to [facility] and assisted in changing depend. Awaiting report to call for pt admit. VSS.
[2023-08-29 19:55] VITALS: BP 161/79; PULSE 75; RESP 18; TEMP 36.6; O2SAT 97
[2023-08-29 20:00] VITALS: BMI 24.5
[2023-08-29] MEDS: APIXABAN 2.5 MG TABLET 5 MG PO (21:55)
[2023-08-29] MEDS: ALPRAZolam (*CRX) 0.5 MG TABLET PO (22:14)
[2023-08-29] MEDS: SODIUM CHLORIDE 0.9% IV 1,000 ML 100 ML IV CONT (22:18)
[2023-08-30] VITALS: BP 187/76; PULSE 70; RESP 16; TEMP 36.7; O2SAT 99
[2023-08-30 05:29] LABS: Basophils Absolute Auto 0.04 K/mm3 (0.00-0.10); Basophils Percent Auto 0.7 % (0.0-1.0); Eosinophils Absolute Auto 0.13 K/mm3 (0.02-0.50); Eosinophils Percent Auto 2.3 % (1.0-6.0); Hemoglobin 11.4 g/dL (11.7-13.8); Immature Granulocyte Absolute 0.02 K/mm3 (0.00-0.00); Immature Granulocyte Percent A 0.4 % (0.0-0.0); Lymphocytes Absolute Auto 1.63 K/mm3 (1.10-4.50); Lymphocytes Percent Auto 28.6 % (18.0-42.0); Mean Corpuscular HGB Conc 34.5 g/dL (32.0-36.0); Mean Corpuscular Hemoglobin 30.1 pg (27.0-31.0); Mean Corpuscular Volume 87.1 fL (78.0-102.0); Mean Platelet Volume 10.9 fl (9.2-11.8); Monocytes Absolute Auto 0.79 K/mm3 (0.10-0.90); Monocytes Percent Auto 13.9 % (2.0-11.0); Neutrophils Absolute Auto 3.1 K/mm3 (1.7-7.2); Neutrophils Percent Auto 54.1 % (50.0-70.0); Platelet Count Result 145 K/mm3 (150-420); Red Blood Count 3.79 M/mm3 (4.20-5.40); Red Cell Distribution Width 12.2 % (11.6-14.4); White Blood Count 5.7 K/mm3 (4.8-10.8)
[2023-08-30 05:42] LABS: Alanine Aminotransferase 20 U/L (14-59); Albumin Level 2.6 g/dL (3.4-5.0); Alkaline Phosphatase 54 U/L (46-116); Anion Gap 7 mmol/L (8-16); Aspartate Amino Transferase 15 U/L (15-37); Bilirubin,Total 0.5 mg/dL (0.00-1.00); Blood Urea Nitrogen 10 mg/dL (7-18); Calcium 8.1 mg/dL (8.5-10.1); Carbon Dioxide 26 mmol/L (21-32); Chloride 98 mmol/L (98-108); Estimated CRCL calculation 45 ml/min; Estimated Glomerular Filt Rate > 60; Glucose 87 mg/dL (70-99); Osmolality Calculated 270 mOsm/kg (285-295); Potassium 4.1 mmol/L (3.5-5.1); Sodium 131 mmol/L (136-145); Total Protein 5.7 g/dL (6.4-8.2)
--- NOTE | 2023-08-30 06:59 | PM.SD2 ---
Same Day Admit/Disch: HPI History of Present Illness Chief complaint: HYPONATREMIA UTI WEAKNESS Narrative: Linda Garza is a 82 year old female with a past medical history of CAD, depression, DVT, hypertension, PVD, and post-polio syndrome who presented to the ER for a 2nd time on 08/28 after falling at home and hitting her head. She denies loss of consciousness. She does complain of generalized weakness. Her CT of her head showed no acute intracranial abnormality. Her sodium BMP was 126. She received IV fluids and was admitted to the floor for further evaluation and therapy consult. Sodium today is 131. She states that she is feeling much better today after having a good night sleep and eating some food. At present she denies headache, dizziness, chest pain, shortness a breath, abdominal pain, nausea, vomiting, constipation or diarrhea. her biggest concern is that she has not been able to sleep for the last couple of weeks. She states that she has tried Seroquel and recently her nurse practitioner placed her on venlafaxine. She said that the venlafaxine made her sick and dizzy so she no longer is taking that. She had run out of her Xanax but it was too soon for her to get a refill per her pharmacy. She received Xanax last night and this helped her sleep. She says she is able to refill her medication on Saturday. We will have PT and OT evaluate her and discharge home later this afternoon. Patient is agreeable. [facility] Past Medical History Medical History Achilles tendon pain CAD (coronary artery disease) Depression DVT (deep venous thrombosis) Hip pain HTN (hypertension) IBS (irritable bowel syndrome) Left leg weakness Peripheral vascular disease Polio Post-polio syndrome Right foot pain Surgical History Surgical History H/O: hysterectomy Stented coronary artery Family History Family History Other Family history of arthritis Family history of mental disorder Hypertension Social History Social History Smoking status: Never smoker Alcohol intake: former Drinks per week: 1 Substance use: never Substance use type: marijuana Do You Feel Safe in your Home?: Yes Lack of Transportation: No Lack of Food: Never True Current Housing: I Have Housing Concerned About Future Housing: No Difficulty Paying Gas/Electric Bills: No Difficulty Paying for Meds: No Currently Unemployed: No Education: High School Diploma/GED Difficulty w/ Childcare or Family Care: No Gender identity (if verbalized by the patient): Female Sexual Orientation (if Verbalized by the Patient): Straight or Heterosexual Spiritual care concerns: No Same Day Admit/Disch: Med Pre-admit Medications Home Medications Medication Instructions Recorded Confirmed Type furosemide 20 mg tablet 20 mg PO DAILY 10/15/20 08/29/23 History nitroglycerin 0.4 mg sublingual 0.4 mg sublingual Q5M PRN Chest 03/27/23 08/29/23 History tablet Pain aspirin 81 mg tablet,delayed 81 mg PO DAILY 05/31/23 08/29/23 History release rosuvastatin 10 mg tablet 10 mg PO DAILY #90 tabs 08/05/23 08/29/23 Rx apixaban 5 mg tablet (Eliquis) 5 mg PO BID #60 tabs 08/16/23 08/29/23 Rx alprazolam 0.5 mg tablet 0.5 mg PO QHS PRN anxiety #20 tabs 08/26/23 08/29/23 Rx benazepril 10 mg tablet (Lotensin) 10 mg PO DAILY #30 tabs 08/26/23 08/29/23 Rx potassium chloride 20 mEq See Rx Instructions .Route 08/30/23 Rx tablet,extended release .COMPLEX #90 tabs Review of Systems Review of Systems All systems reviewed & are unremarkable except as noted in HPI and below Exam Narrative: General: chronically ill appearing, well developed, well nourished, appears stated age. HEENT: normocephalic, atraumatic. Mucous membranes moist. EOMI
[2023-08-30 07:45] VITALS: BP 161/69; PULSE 78; RESP 16; TEMP 36; O2SAT 96
[2023-08-30] MEDS: ACETAMINOPHEN 325 MG TABLET 650 MG PO (07:59)
[2023-08-30] MEDS: lisinopriL 10 MG TABLET PO (10:05)
[2023-08-30] MEDS: POTASSIUM CHLORIDE 20 MEQ ER TABLET PO (10:05)
[2023-08-30] MEDS: APIXABAN 2.5 MG TABLET 5 MG PO (10:05)
[2023-08-30] MEDS: ROSUVASTATIN 10 MG TABLET PO (10:05)
[2023-08-30] MEDS: ASPIRIN 81 MG ENTERIC TABLET PO (10:05)
--- NOTE | 2023-08-30 13:20 | PC.NURSE ---
Patient discharging home. IV site removed, tip intact. Dressing applied to site. All discharge instructions and education reviewed with patient. No questions at this time. All belongings gathered together and sent home with patient. Patient assisted to wheelchair with 1 ast and walker. Patient accompanied to front door via wheelchair by this nurse, left via private vehicle with friend.
--- NOTE | 2023-09-02 10:49 | PC.NURSE ---
Discharge call back complete, feels her anxiety is her problem, to see her PMD on the , no questions or concerns regarding dc instructions or care
== END 2023-08-30 13:20 | disposition home or self-care (01) ==
LOC: CHSED 18:44 → CHS2ND 19:12
PROVIDERS: Admitting Provider Internal Medicine; Emergency Provider Emergency Medicine; PCP Family Medicine; Visit Provider Internal Medicine
DX: E87.1 Hypo-osmolality and hyponatremia (principal); R53.1 Weakness; S09.90XA Unspecified injury of head, initial encounter; W19.XXXA Unspecified fall, initial encounter; N39.0 Urinary tract infection, site not specified; G14 Postpolio syndrome; I10 Essential (primary) hypertension; I25.10 Atherosclerotic heart disease of native coronary artery without angina pectoris; F32.A Depression, unspecified; I73.9 Peripheral vascular disease, unspecified; Z95.5 Presence of coronary angioplasty implant and graft; Z86.718 Personal history of other venous thrombosis and embolism; Z79.01 Long term (current) use of anticoagulants; Z79.82 Long term (current) use of aspirin; Z79.899 Other long term (current) drug therapy; Z82.49 Family history of ischemic heart disease and other diseases of the circulatory system; Z81.8 Family history of other mental and behavioral disorders
CPT/HCPCS: 36415; 70450; 71045; 80053; 81001; 83605; 83880; 84443; 84484; 85025; 85610; 85730; 86140; 87077; 87086; 87088; 87181; 87637; 93005; 96361; 96365; 97161; 97165; 99285; A9270; G0378; J1956; J7030

== ENCOUNTER 2023-09-03 22:51 | Inpatient (IN) | payer MEDICARE, SELFPAY ==
[2023-09-03 22:51] VITALS: BP 182/61; PULSE 64; RESP 18; TEMP 36.3; O2SAT 96
[2023-09-03 23:25] LABS: Basophils Absolute Auto 0.05 K/mm3 (0.00-0.10); Basophils Percent Auto 0.8 % (0.0-1.0); Eosinophils Absolute Auto 0.17 K/mm3 (0.02-0.50); Eosinophils Percent Auto 2.7 % (1.0-6.0); Hematocrit 31.7 % (35.0-42.0); Immature Granulocyte Absolute 0.01 K/mm3 (0.00-0.00); Immature Granulocyte Percent A 0.2 % (0.0-0.0); Lymphocytes Absolute Auto 2.18 K/mm3 (1.10-4.50); Lymphocytes Percent Auto 34.9 % (18.0-42.0); Mean Corpuscular HGB Conc 34.7 g/dL (32-36); Mean Corpuscular Hemoglobin 29.6 pg (27.0-31.0); Mean Corpuscular Volume 85.4 fL (78.0-102.0); Mean Platelet Volume 10.8 fl (9.2-11.8); Monocytes Absolute Auto 0.81 K/mm3 (0.10-0.90); Neutrophils Absolute Auto 3.02 K/mm3 (1.70-7.20); Neutrophils Percent Auto 48.4 % (50.0-70.0); Platelet Count Result 183 K/mm3 (150-420); Red Blood Count 3.71 M/mm3 (4.20-5.40); Red Cell Distribution Width 12.1 % (11.6-14.4); White Blood Count 6.2 K/mm3 (4.8-10.8)
[2023-09-03 23:46] LABS: Alanine Aminotransferase 19 U/L (14-59); Albumin Level 2.9 g/dL (3.4-5.0); Alkaline Phosphatase 58 U/L (46-116); Anion Gap 10 mmol/L (8-16); Aspartate Amino Transferase 19 U/L (15-37); Bilirubin,Total 0.7 mg/dL (0.00-1.00); Blood Urea Nitrogen 11 mg/dL (7-18); Carbon Dioxide 24 mmol/L (21-32); Chloride 88 mmol/L (98-108); Estimated CRCL calculation 50 ml/min; Estimated Glomerular Filt Rate > 60; Glucose 97 mg/dL (70-99); Osmolality Calculated 253 mOsm/kg (285-295); Sodium 122 mmol/L (136-145); Total Protein 6.1 g/dL (6.4-8.2)
--- NOTE | 2023-09-04 00:58 | ED.GENADULT ---
HPI - General Adult General Chief complaint: Nausea/Vomiting/Diarrhea Stated complaint: Nausea Time Seen by Provider: 09/03/23 23:09 Source: patient Mode of arrival: EMS Limitations: no limitations History of Present Illness HPI narrative: 82 YEARS OLD WHITE FEMALE CAME TO THE ED BY AMBULANCE FROM HOME COMPLAINING OF GENERAL WEAKNESS, INTERMITTENT NAUSEA SINCE WAS DISCHARGED FROM OUR FACILITY 5 DAYS AGO PATIENT WAS DISCHARGED WITH DIAGNOSIS OF HYPONATREMIA AND URINARY TRACT INFECTION AND GENERAL WEAKNESS. THIS SODIUM LEVEL WAS 131 AT THE TIME OF DISCHARGE AUGUST 30, 2023. Related Data Home Medications Medication Instructions Recorded Confirmed furosemide 20 mg tablet 20 mg PO DAILY 10/15/20 09/03/23 nitroglycerin 0.4 mg sublingual 0.4 mg sublingual Q5M PRN Chest 03/27/23 09/03/23 tablet Pain aspirin 81 mg tablet,delayed 81 mg PO DAILY 05/31/23 09/03/23 release Allergies Allergy/AdvReac Type Severity Reaction Status Date / Time amoxicillin Allergy Unknown Verified 09/03/23 23:00 prednisone AdvReac Dizziness Verified 09/03/23 23:00 Review of Systems Review of Systems: All systems reviewed & are unremarkable except as noted in HPI and below PMFSH Past Medical History Medical History Achilles tendon pain CAD (coronary artery disease) Depression DVT (deep venous thrombosis) Hip pain HTN (hypertension) IBS (irritable bowel syndrome) Left leg weakness Peripheral vascular disease Polio Post-polio syndrome Right foot pain Surgical History Surgical History H/O: hysterectomy Stented coronary artery Family History Family History Other Family history of arthritis Family history of mental disorder Hypertension Social History Social History Smoking status: Never smoker Alcohol intake: former Drinks per week: 1 Substance use: never Substance use type: marijuana Do You Feel Safe in your Home?: Yes Lack of Transportation: No Lack of Food: Never True Current Housing: I Have Housing Concerned About Future Housing: No Difficulty Paying Gas/Electric Bills: No Difficulty Paying for Meds: No Currently Unemployed: No Education: High School Diploma/GED Difficulty w/ Childcare or Family Care: No Gender identity (if verbalized by the patient): Female Sexual Orientation (if Verbalized by the Patient): Straight or Heterosexual Spiritual care concerns: No Exam Narrative: GENERAL APPEARANCE: WELL-DEVELOPED, WELL-NOURISHED SKIN: NORMAL COLOR HEAD: NORMOCEPHALIC, NONTRAUMATIC EYES: CLEAR CONJUNCTIVA ENT: OROPHARYNX NORMAL, EARS NORMAL, NOSE NORMAL NECK: SUPPLE, NONTENDER CHEST AND RESPIRATORY: AIRWAY PATENT, NO RESPIRATORY DISTRESS, NO ACCESSORY MUSCLE USE HEART: REGULAR RATE/RHYTHM ABDOMEN: SOFT, NONTENDER, NO ORGANOMEGALY, QUIET BOWEL SOUNDS VASCULAR: NORMAL PERIPHERAL PULSES, NORMAL CAPILLARY REFILL. MUSCULOSKELETAL: NORMAL RANGE OF MOTION, NONTENDER BACK NEUROLOGIC: ALERT AND ORIENTED ?3, INSPECTOR CONVEYOR LINE IS NORMAL TESTED, NO GROSS MOTOR DEFICIT Course Vital Signs Vital signs: Vital Signs Temperature 36.3 C L 09/03/23 22:51 Pulse Rate 64 09/03/23 22:51 Respiratory Rate 18 09/03/23 22:51 Blood Pressure 182/61 H 09/03/23 22:51 Pulse Oximetry 96 09/03/23 22:51 Oxygen Delivery Room Air 09/03/23 22:51 Temperature 36.3 C L 09/03/23 22:51 Pulse Rate 64 09/03/23 22:51 Respiratory Rate 18 09/03/23 22:51 Blood Pressure 182/61 H 09/03/23 22:51 Pulse Oximetry 96
[2023-09-04 01:00] VITALS: BP 166/66; PULSE 57; RESP 18; O2SAT 98
[2023-09-04] MEDS: ALPRAZolam (*CRX) 0.5 MG TABLET 1 MG PO (01:15)
[2023-09-04] MEDS: SODIUM CHLORIDE 0.9% IV 1,000 ML 60 ML IV CONT ×2 (01:16→02:38)
[2023-09-04] MEDS: ONDANSETRON INJ 4 MG/2 ML VIAL IV PUSH (01:17)
[2023-09-04 01:32] LABS: Thyroid Stimulating Hormone 2.14 uIU/mL (0.36-3.74)
[2023-09-04 01:59] LABS: Anion Gap 8 mmol/L (8-16); Blood Urea Nitrogen 10 mg/dL (7-18); Calcium 7.6 mg/dL (8.5-10.1); Carbon Dioxide 25 mmol/L (21-32); Chloride 89 mmol/L (98-108); Estimated CRCL calculation 53 ml/min; Estimated Glomerular Filt Rate > 60; Glucose 95 mg/dL (70-99); Osmolality Calculated 253 mOsm/kg (285-295); Potassium 3.9 mmol/L (3.5-5.1); Sodium 122 mmol/L (136-145)
[2023-09-04 02:23] VITALS: BMI 24.5
[2023-09-04 02:54] VITALS: BP 157/67; PULSE 64; RESP 17; TEMP 35.8; O2SAT 96
[2023-09-04 08:00] VITALS: BP 125/65; PULSE 61; RESP 16; TEMP 35.7; O2SAT 96
[2023-09-04] MEDS: APIXABAN 2.5 MG TABLET 5 MG BY MOUTH ×2 (10:43→21:08)
[2023-09-04] MEDS: ASPIRIN 81 MG ENTERIC TABLET PO (10:43)
[2023-09-04] MEDS: ROSUVASTATIN 10 MG TABLET PO (10:43)
[2023-09-04] MEDS: FUROSEMIDE 20 MG TABLET PO ×2 (10:43→21:08)
[2023-09-04] MEDS: POTASSIUM CHLORIDE 20 MEQ ER TABLET PO (10:43)
--- NOTE | 2023-09-04 11:00 | PC.NURSE ---
Hernandes catheter inserted, 24 hour urine initiated
[2023-09-04] MEDS: lisinopriL 10 MG TABLET PO (11:27)
--- NOTE | 2023-09-04 11:27 | PM.IMHP ---
H&P: HPI History of Present Illness Date/Time: 09/04/23 11:27 Chief Complaint: nausea, dizziness, hyponatremia Narrative: This is an 82-year-old female patient admitted to the hospital for symptomatic hyponatremia. Patient has a past medical history of coronary artery disease, depression, DVT, hypertension, peripheral vascular disease and post-polio syndrome. Patient was recently admitted to this facility on August 28 with hyponatremia that corrected and was discharged on August 29. Patient reports that she has been having dizziness nausea lightheadedness headache and poor appetite for about the last 2 weeks. She reports that she fell striking her head about 10 days ago. Patient also complains of significant anxiety and depression, was previously on Xanax but her primary care has discontinued this. Patient states that she has had trouble sleeping ever since. Patient was previously placed on venlafaxine but she stopped taking it because it made her feel sick and dizzy. On last admission to the hospital patient was found to have urinary tract infection which has since been treated. In the emergency department patient was found to have a sodium level of 122. She states that she followed heart healthy diet and increased her fluid intake after discharge from admission last week. Patient reports she has not been able to eat for a couple of days due to the significant nausea. Patient reports that after she received a dose of alprazolam last night she slept through the night woke up feeling much better today able to eat. Patient was started on a fluid restriction diet due to significant hyponatremia. Spoke with Nephrology regarding evaluation and treatment, recommendation was to continue fluid restriction and add salt tabs with furosemide twice daily. We will recheck metabolic panel twice a day to start. Nursing staff reports profuse urinary incontinence. Ordered Hernandes catheter for 24 hour urine collection that was ordered by ED provider on admission. Review of Systems Review of Systems: All systems reviewed & are unremarkable except as noted in HPI and below PMFSH Past Medical History Medical History Achilles tendon pain CAD (coronary artery disease) Depression DVT (deep venous thrombosis) Hip pain HTN (hypertension) IBS (irritable bowel syndrome) Left leg weakness Peripheral vascular disease Polio Post-polio syndrome Right foot pain Surgical History Surgical History H/O: hysterectomy Stented coronary artery Family History Family History Other Family history of arthritis Family history of mental disorder Hypertension Social History Social History Smoking status: Never smoker Second hand tobacco smoke exposure: No Alcohol intake: never Drinks per week: 1 Substance use: never Substance use type: does not use Do You Feel Safe in your Home?: Yes Lack of Transportation: No Lack of Food: Never True Current Housing: I Have Housing Concerned About Future Housing: No Difficulty Paying Gas/Electric Bills: No Difficulty Paying for Meds: No Currently Unemployed: No Education: High School Diploma/GED Difficulty w/ Childcare or Family Care: No Gender identity (if verbalized by the patient): Female Sexual Orientation (if Verbalized by the Patient): Straight or Heterosexual Spiritual care concerns: No Meds Home Medications and Allergies Home Medications Medication Instructions Recorded Confirmed Type furosemide 20 mg tablet 20 mg PO DAILY 10/15/20 09/03/23 History nitroglycerin 0.4 mg sublingual 0.4 mg sublingual Q5M PRN Chest 03/27/23 09/03/23 History tablet Pain aspirin 81 mg tablet,delayed 81 mg PO DAILY 05/31/23 09/03/23 History release rosuvastatin 10 mg tablet 10 m
[2023-09-04 11:50] LABS: Thyroid Stimulating Hormone Reflex 1.87 u/IU/mL (0.36-3.74)
[2023-09-04 12:03] LABS: Appearance Urine Clear (Clear); Bilirubin Urine Negative (Negative); Blood Urine Trace-intact (Negative); Color Urine Light Yellow (Yellow); Glucose Urine UA Negative (Negative); Ketones Urine Negative (Negative); Leukocyte Esterase Ur Negative LEU/UL (Negative); Nitrate Urine Negative (Negative); Protein Urine Negative (Negative); Specific Grav Ur <= 1.005 (1.010-1.020); Urobilinogen Urine 0.2 mg/dL (0.2-1.0); pH Urine 6.5 (5.0-8.0)
[2023-09-04 12:07] LABS: Add Urine Microscopic? YES; Bacteria Urine Rare /hpf; RBC Urine None seen /hpf (0-2); Squamous Epithelial Cell Urine Occasional /hpf (Few); WBC Urine None seen /hpf (0-3)
[2023-09-04 12:16] LABS: Sodium Urine Random 54 mmol/L (20-110)
[2023-09-04] MEDS: SODIUM CHLORIDE 1 GM TABLET PO ×2 (12:30→21:08)
[2023-09-04 16:00] VITALS: BP 145/55; PULSE 68; RESP 16; TEMP 36.2; O2SAT 97
[2023-09-04 17:39] LABS: Anion Gap 4 mmol/L (8-16); Blood Urea Nitrogen 12 mg/dL (7-18); Carbon Dioxide 29 mmol/L (21-32); Chloride 96 mmol/L (98-108); Estimated CRCL calculation 47 ml/min; Estimated Glomerular Filt Rate > 60; Glucose 99 mg/dL (70-99); Osmolality Calculated 267 mOsm/kg (285-295); Potassium 4.5 mmol/L (3.5-5.1); Sodium 129 mmol/L (136-145)
[2023-09-04] MEDS: ACETAMINOPHEN 325 MG TABLET 650 MG PO (21:25)
[2023-09-05] VITALS: BP 147/52; PULSE 74; RESP 14; TEMP 36.3; O2SAT 96
--- NOTE | 2023-09-05 01:24 | PC.NURSE ---
Pt c/o of L arm soreness to Viry Dewey RN; Viry notified this RN of this finding to which the pt was informed that the Tylenol was too soon to give. Pt verbalized understanding of having to wait til the medication is able to be given again. This RN went to pt's room and inquired if the pt still needed the Tylenol. Pt stated she is fine at this time, and does not want them. This RN communicated to the pt that if the soreness arises again to let nursing staff know. Pt verbalized understanding and has her call light w/in reach.
[2023-09-05 05:29] LABS: Hematocrit 32.7 % (35.0-42.0); Hemoglobin 10.8 g/dL (11.7-13.8); Mean Corpuscular Hemoglobin 29.1 pg (27.0-31.0); Mean Corpuscular Volume 88.1 fL (78.0-102.0); Mean Platelet Volume 10.6 fl (9.2-11.8); Platelet Count Result 167 K/mm3 (150-420); Red Blood Count 3.71 M/mm3 (4.20-5.40); Red Cell Distribution Width 12.9 % (11.6-14.4)
[2023-09-05 05:41] LABS: Anion Gap 5 mmol/L (8-16); Blood Urea Nitrogen 12 mg/dL (7-18); Calcium 8.2 mg/dL (8.5-10.1); Carbon Dioxide 31 mmol/L (21-32); Chloride 97 mmol/L (98-108); Estimated CRCL calculation 44 ml/min; Estimated Glomerular Filt Rate > 60; Glucose 97 mg/dL (70-99); Magnesium 1.7 mg/dL (1.8-2.4); Osmolality Calculated 275 mOsm/kg (285-295); Potassium 4.6 mmol/L (3.5-5.1); Sodium 133 mmol/L (136-145)
--- NOTE | 2023-09-05 06:05 | PC.NURSE ---
[employer] called to give a new order for 400 mls D5W at 200 ml/hr x1.
[2023-09-05 06:45] LABS: Urea Random Urine 188 MG/DL
[2023-09-05] MEDS: DEXTROSE 5% IN WATER 500 ML 200 ML IV CONT (07:10)
[2023-09-05 08:00] VITALS: BP 146/59; PULSE 62; RESP 16; TEMP 36.1; O2SAT 95
--- NOTE | 2023-09-05 08:28 | PM.IMPN ---
Progress Note: A&P Assessment and Plan (1) Hypo-osmolar hyponatremia: Code(s): E87.1 - Hypo-osmolality and hyponatremia Status: Acute Assessment and Plan: Admitted with sodium level 122. Patient was admitted on August 28 with sodium level 126. Patient following heart healthy diet at home including increased fluids and low-salt. Persistent nausea weakness headache dizziness have been worsening and are likely symptoms of hyponatremia. TSH, cortisol, urine sodium urine electrolytes serum Osmo, urine Osmo, and protein electrophoresis ordered TSH normal, urine sodium 54, all other above are pending /send outs 09/04: Slight over-correction and sodium total 11 change from 122 to 133 in 24 hours. D5W 400 mL infused and level down to 129. 2000mL fluid restriction diet today. Q4H I&O with herman in place. Cancel 24 hour urine collection for urine sodium due to interventions and level changes as above. (2) Anxiety and depression: Code(s): F41.9 - Anxiety disorder, unspecified; F32.A - Depression, unspecified Status: Acute Assessment and Plan: Patient previously long-term alprazolam user ran out early from previous prescription and was not renewed. No SSRIs due to hyponatremia, patient self discontinued venlafaxine relatively recently. Discontinuing venlafaxine unlikely to cause significant hyponatremia. 09/04: Will use alprazolam 0.5 mg HS an attempt to talk to primary care as the stress of insomnia related to the discontinuation of alprazolam may be a high contributor to her overall symptomatology and her hyponatremic response. (3) Unintentional weight loss: Code(s): R63.4 - Abnormal weight loss Status: Acute Assessment and Plan: Patient reports unintentional weight loss and also reports poor appetite due to sustained nausea for the last 2 weeks. 09/04: Ordered Ensure with each meal. Plan 2 L fluid restriction diet no diuretics or sodium tabs today. 129 after treatment with D5W this morning. Repeat sodium at 5:00 p.m. and 5:00 a.m. with results called to provider Q4H I&O, keep Herman in place Time Spent With Patient Time with patient: Greater than 35 minutes Subjective Date/time seen: 09/05/23 08:28 Interval history: Sodium overcorrected overnight total shift of 11 points in 24 hours. Patient received D5W 400 mL and recheck sodium was back to 129. Fluid restriction liberalize to 2 L daily. Will reassess labs at 5:00 p.m. and 5:00 a.m. with results called to provider. Herman catheter to remain in place during sodium correction accurate q.4 hour intake and output. Patient still complaining of feeling anxious and depressed. No new neurologic symptoms. Review of Systems Review of Systems: All systems reviewed & are unremarkable except as noted in HPI and below Exam Narrative: GENERAL: Patient awake alert oriented appears depressed and somewhat uncomfortable HEAD: Normocephalic, atraumatic. ENT:? Mucous membranes slightly dry. CHEST: Clear to auscultation.? No respiratory distress. HEART: Regular rate and rhythm. ? Normal peripheral pulses. ABDOMEN: Soft, nontender, nondistended. EXTREMITIES: Normal range of motion. No peripheral edema. SKIN: Warm dry normal color NEURO: Alert and oriented x3. PSYCH: Depressed mood and slightly anxious affect Objective Data Vital Signs Vital Signs: Vital Signs - 24 hr 09/04/23 16:00 09/05/23 00:00 Temperature 36.2 C L 36.3 C L Pulse Rate 68 74 Respiratory Rate 16 14 Blood Pressure 145/55 H 147/52 H Pulse Oximetry 97 96 Oxygen Delivery Room Air Room Air Intake/Output Intake/Output: Intake & Output 09/02/23 09/03/23 09/04/23 09/05/23 23:59 23:59 23:59 23:59 Intake Total 3300 Output Total 1000 2300 Balance 2300 -2300 Meds/Results Medications: Active Medications Generic Name Dose Route Start Last Admin Trade Name Freq PRN Reason Stop Dose Admin Acetaminophen 650 mg
[2023-09-05] MEDS: ROSUVASTATIN 10 MG TABLET PO (09:49)
[2023-09-05] MEDS: MAGNESIUM OXIDE 400 MG TABLET 800 MG PO (09:49)
[2023-09-05] MEDS: ASPIRIN 81 MG ENTERIC TABLET PO (09:50)
[2023-09-05] MEDS: lisinopriL 10 MG TABLET PO (09:50)
[2023-09-05] MEDS: APIXABAN 2.5 MG TABLET 5 MG BY MOUTH ×2 (09:50→20:57)
[2023-09-05 10:31] LABS: Sodium 129 mmol/L (136-145)
[2023-09-05 16:00] VITALS: BP 141/61; PULSE 66; RESP 16; TEMP 36.6; O2SAT 98
[2023-09-05 17:24] LABS: Anion Gap 4 mmol/L (8-16); Blood Urea Nitrogen 14 mg/dL (7-18); Calcium 8.2 mg/dL (8.5-10.1); Carbon Dioxide 31 mmol/L (21-32); Chloride 95 mmol/L (98-108); Estimated CRCL calculation 44 ml/min; Estimated Glomerular Filt Rate > 60; Glucose 88 mg/dL (70-99); Osmolality Calculated 269 mOsm/kg (285-295); Potassium 4.6 mmol/L (3.5-5.1); Sodium 130 mmol/L (136-145)
[2023-09-05] MEDS: ALPRAZolam (*CRX) 0.5 MG TABLET PO (20:57)
[2023-09-05] MEDS: ACETAMINOPHEN 325 MG TABLET 650 MG PO (20:57)
[2023-09-06] VITALS: BP 141/62; PULSE 63; RESP 18; TEMP 36.3; O2SAT 96
[2023-09-06 05:32] LABS: Hematocrit 31.6 % (35.0-42.0); Hemoglobin 10.6 g/dL (11.7-13.8); Mean Corpuscular HGB Conc 33.5 g/dL (32-36); Mean Corpuscular Hemoglobin 29.8 pg (27.0-31.0); Mean Corpuscular Volume 88.8 fL (78.0-102.0); Mean Platelet Volume 10.4 fl (9.2-11.8); Platelet Count Result 186 K/mm3 (150-420); Red Blood Count 3.56 M/mm3 (4.20-5.40); White Blood Count 5.2 K/mm3 (4.8-10.8)
[2023-09-06 05:49] LABS: Anion Gap 4 mmol/L (8-16); Blood Urea Nitrogen 14 mg/dL (7-18); Calcium 8.2 mg/dL (8.5-10.1); Carbon Dioxide 29 mmol/L (21-32); Chloride 96 mmol/L (98-108); Estimated CRCL calculation 49 ml/min; Estimated Glomerular Filt Rate > 60; Glucose 103 mg/dL (70-99); Magnesium 1.8 mg/dL (1.8-2.4); Osmolality Calculated 268 mOsm/kg (285-295); Potassium 4.6 mmol/L (3.5-5.1); Sodium 129 mmol/L (136-145)
[2023-09-06 08:00] VITALS: BP 134/72; PULSE 69; RESP 18; TEMP 36.1; O2SAT 98
[2023-09-06] MEDS: MAGNESIUM OXIDE 400 MG TABLET 800 MG PO (08:24)
[2023-09-06] MEDS: lisinopriL 10 MG TABLET PO (08:24)
[2023-09-06] MEDS: APIXABAN 2.5 MG TABLET 5 MG BY MOUTH ×2 (08:24→21:06)
[2023-09-06] MEDS: FUROSEMIDE 20 MG TABLET PO ×2 (08:24→21:06)
[2023-09-06] MEDS: ROSUVASTATIN 10 MG TABLET PO (08:24)
[2023-09-06] MEDS: SODIUM CHLORIDE 1 GM TABLET PO ×2 (08:25→21:06)
[2023-09-06] MEDS: ASPIRIN 81 MG ENTERIC TABLET PO (08:25)
--- NOTE | 2023-09-06 08:53 | PM.IMPN ---
Progress Note: A&P Assessment and Plan (1) Hypo-osmolar hyponatremia: Code(s): E87.1 - Hypo-osmolality and hyponatremia Status: Acute Assessment and Plan: Admitted with sodium level 122. Patient was admitted on August 28 with sodium level 126. Patient following heart healthy diet at home including increased fluids and low-salt. Persistent nausea weakness headache dizziness have been worsening and are likely symptoms of hyponatremia. TSH, cortisol, urine sodium urine electrolytes serum Osmo, urine Osmo, and protein electrophoresis ordered TSH normal, urine sodium 54, all other above are pending /send outs 09/04: Slight over-correction and sodium total 11 change from 122 to 133 in 24 hours. D5W 400 mL infused and level down to 129. 2000mL fluid restriction diet today. Q4H I&O with herman in place. Cancel 24 hour urine collection for urine sodium due to interventions and level changes as above. 09/05: sodium stable at 122. 2000 mL fluid restriction still intact. Herman catheter still in place. Reinitiate sodium chloride tabs with oral furosemide and repeat labs q.12 hours. Would like to see 5-6 point rise in the sodium and make decision whether to continue sodium tablets prior to discharge. Goal will be to discharge tomorrow at all possible. (2) Anxiety and depression: Code(s): F41.9 - Anxiety disorder, unspecified; F32.A - Depression, unspecified Status: Acute Assessment and Plan: Patient previously long-term alprazolam user ran out early from previous prescription and was not renewed. No SSRIs due to hyponatremia, patient self discontinued venlafaxine relatively recently. Discontinuing venlafaxine unlikely to cause significant hyponatremia. 09/04: Will use alprazolam 0.5 mg HS an attempt to talk to primary care as the stress of insomnia related to the discontinuation of alprazolam may be a high contributor to her overall symptomatology and her hyponatremic response. 09/05: Left a message with primary care provider's office to ask for a call back from PCP today. Did not receive any call. (3) Unintentional weight loss: Code(s): R63.4 - Abnormal weight loss Status: Acute Assessment and Plan: Patient reports unintentional weight loss and also reports poor appetite due to sustained nausea for the last 2 weeks. 09/04: Ordered Ensure with each meal. Plan 2 L fluid restriction diet, restart diuretics and sodium tabs today. 129 on morning labs Repeat sodium at 5:00 p.m. and 5:00 a.m. with results called to provider Q4H I&O, keep Herman in place Time Spent With Patient Time with patient: Greater than 35 minutes Subjective Date/time seen: 09/06/23 16:53 Interval history: Sodium remained 129. Patient reports that she is feeling better and is seeking discharge home. However, I would like to see sodium rise another 4-6 points over the next 24 hours prior to feeling comfortable with discharge. I explained this to patient and restarted salt tablet and furosemide. whether patient discharges with salt tabs are not will be dependent on how labs appear this evening tomorrow morning. Herman catheter kept in place due to plan for nocturnal dose furosemide with sodium tablet at 9:00 p.m. Patient reports a weak bladder and not able to make it to the commode. Review of Systems Review of Systems: All systems reviewed & are unremarkable except as noted in HPI and below Exam Narrative: GENERAL: Patient awake alert oriented appears slightly anxious and down HEAD: Normocephalic, atraumatic. ENT:? Mucous membranes slightly dry. CHEST: Clear to auscultation.? No respiratory distress. HEART: Regular rate and rhythm. ? Normal peripheral pulses. ABDOMEN: Soft, nontender, nondistended. Herman catheter in place draining clear yellow urine. EXTREMITIES: Normal range of motion. No peripheral edema. SKIN: Warm dry normal color NEURO: Alert and oriented x3. PSYCH: Depressed mood an
[2023-09-06 16:00] VITALS: BP 134/55; PULSE 65; RESP 16; TEMP 36.4; O2SAT 96
[2023-09-06 17:17] LABS: Anion Gap 2 mmol/L (8-16); Blood Urea Nitrogen 17 mg/dL (7-18); Calcium 8.3 mg/dL (8.5-10.1); Carbon Dioxide 33 mmol/L (21-32); Chloride 94 mmol/L (98-108); Estimated CRCL calculation 46 ml/min; Estimated Glomerular Filt Rate > 60; Glucose 100 mg/dL (70-99); Osmolality Calculated 269 mOsm/kg (285-295); Potassium 4.5 mmol/L (3.5-5.1); Sodium 129 mmol/L (136-145)
[2023-09-06] MEDS: ALPRAZolam (*CRX) 0.5 MG TABLET PO (21:11)
--- NOTE | 2023-09-06 23:30 | PC.NURSE ---
Water pitcher has 200 left in pitcher. States she drank pitcher and requested fresh ice water. Explained fluid restriction. States I know . Given 200ml ice water and educated regarding fluid restriction.
[2023-09-07] VITALS: BP 134/67; PULSE 82; RESP 18; TEMP 36.6; O2SAT 96
[2023-09-07 05:25] LABS: Mean Corpuscular HGB Conc 34.4 g/dL (32-36); Mean Corpuscular Hemoglobin 30.1 pg (27.0-31.0); Mean Corpuscular Volume 87.7 fL (78.0-102.0); Mean Platelet Volume 10.5 fl (9.2-11.8); Platelet Count Result 201 K/mm3 (150-420); Red Blood Count 3.65 M/mm3 (4.20-5.40); Red Cell Distribution Width 13.1 % (11.6-14.4); White Blood Count 5.9 K/mm3 (4.8-10.8)
[2023-09-07 05:40] LABS: Anion Gap 5 mmol/L (8-16); Blood Urea Nitrogen 15 mg/dL (7-18); Calcium 8.4 mg/dL (8.5-10.1); Carbon Dioxide 30 mmol/L (21-32); Chloride 94 mmol/L (98-108); Estimated CRCL calculation 54 ml/min; Estimated Glomerular Filt Rate > 60; Glucose 95 mg/dL (70-99); Magnesium 1.8 mg/dL (1.8-2.4); Osmolality Calculated 268 mOsm/kg (285-295); Potassium 4.2 mmol/L (3.5-5.1); Sodium 129 mmol/L (136-145)
[2023-09-07 06:12] LABS: Cortisol Random 5.3 mcg/dL (***)
[2023-09-07 08:00] VITALS: BP 134/62; PULSE 76; RESP 18; TEMP 36.2; O2SAT 96
[2023-09-07] MEDS: SODIUM CHLORIDE 1 GM TABLET PO (09:33)
[2023-09-07] MEDS: MAGNESIUM OXIDE 400 MG TABLET 800 MG PO (09:33)
[2023-09-07] MEDS: ROSUVASTATIN 10 MG TABLET PO (09:33)
[2023-09-07] MEDS: APIXABAN 2.5 MG TABLET 5 MG BY MOUTH (09:33)
[2023-09-07] MEDS: ASPIRIN 81 MG ENTERIC TABLET PO (09:33)
[2023-09-07] MEDS: lisinopriL 10 MG TABLET PO (09:33)
[2023-09-07] MEDS: FUROSEMIDE 20 MG TABLET PO (09:33)
--- NOTE | 2023-09-07 09:37 | PM.DS ---
DS: Admitting Diagnosis Discharge Date 09/07/2023 Admitting Diagnosis Hypoosmolar hyponatremia, anxiety and depression, unintentional weight loss DS: Discharge Diagnosis Discharge Diagnosis (1) Hypo-osmolar hyponatremia: Code(s): E87.1 - Hypo-osmolality and hyponatremia Status: Acute (2) Anxiety and depression: Code(s): F41.9 - Anxiety disorder, unspecified; F32.A - Depression, unspecified Status: Acute (3) Unintentional weight loss: Code(s): R63.4 - Abnormal weight loss Status: Acute DS: Summary Hospital Course Hospital Course: Patient admitted for symptomatic hyponatremia with a sodium level of 122 symptoms nausea dizziness weakness decreased appetite poor oral intake for couple weeks and unintentional weight loss. Patient had a prior short hospitalization for hyponatremia with a transient rise but subsequent decline again. Patient reports that she has been extremely anxious and somewhat depressed. She reports inability to sleep and relates this to no longer having a prescription for alprazolam. She reports changing primary care providers few months ago and hair previous primary care had patient on alprazolam for greater than 10 years. Upon transfer to new primary care she only received partial fill and is now no longer getting prescription for such in she believes the stress of that is contributing to her insomnia and other symptoms. While in the hospital we allowed 0.5 mg alprazolam at bedtime only and patient reports this is helping significantly. Additionally patient was placed on a fluid restriction and initiated sodium tabs with furosemide. Initially we slightly overcorrected sodium from 122-133 and we had to administer 400 mL of D5W IV with subsequent results 129-130 for the remainder of hospitalization. At time of discharge patient is on 1 g sodium chloride twice daily tablets. Patient instructed on 2 L per day fluid restriction. Lab orders for metabolic panel redraw in 3 days and follow-up with primary care. Few tablets of alprazolam were prescribed and patient instructed on only using them for severe urgent condition to initiate sleep. Return precautions discussed. Status at Discharge Cognitive/behavioral status at discharge: awake alert oriented Functional status at discharge: uses cane/walker Overall status at discharge: patient is progressing back to baseline Time Spent with Patient Time attestation: Total time spent providing and/or coordinating discharge services: 35 minutes Time spent: Greater than 30 minutes Exam Narrative: GENERAL: Patient awake alert oriented appears slightly anxious and down HEAD: Normocephalic, atraumatic. ENT:? Mucous membranes slightly dry. CHEST: Clear to auscultation.? No respiratory distress. HEART: Regular rate and rhythm. ? Normal peripheral pulses. ABDOMEN: Soft, nontender, nondistended. Hernandes catheter in place draining clear yellow urine. EXTREMITIES: Normal range of motion. No peripheral edema. SKIN: Warm dry normal color NEURO: Alert and oriented x3. PSYCH: Depressed mood and slightly anxious affect DS: Data Data Completed and Pending Labs on day of discharge: Labs from last 24 hours 09/07/23 09/06/23 09/04/23 05:11 17:02 01:39 WBC 5.9 RBC 3.65 L Hgb 11.0 L Hct 32.0 L MCV 87.7 MCH 30.1 MCHC 34.4 RDW 13.1 Plt Count 201 MPV 10.5 Sodium 129 L 129 L Potassium 4.2 4.5 Chloride 94 L 94 L Carbon Dioxide 30 33 H Anion Gap 5 L 2 L BUN 15 17 Creatinine 0.59 0.70 Estim Creat Clear Calc 54 46 Estimated GFR > 60 > 60 Glucose 95 100 H Serum Osmolality 247 L Calculated Osmolality 268 L 269 L Calcium 8.4 L 8.3 L Magnesium 1.8 Random Cortisol 5.3 Discharge Plan Discharge Attending physician on discharge: Luis Valladares Discharging Clinician: João Lacy Anticipated Discharge Date/Time: 09/07/23 16:00 Zonia
[2023-09-07] MEDS: BISACODYL 10 MG SUPPOSITORY RECTAL (10:43)
--- NOTE | 2023-09-07 14:20 | PC.NURSE ---
SN reviewed discharge instructions with patient, patient verbalized understanding. Taken off floor per wheelchair to private vehicle
--- NOTE | 2023-09-09 09:37 | PC.NURSE ---
discharge call back completed, doing ok, to have book work tomorrow and to see Dr Lakhani on , no questions regarding dc instructions
[2023-09-09 18:04] LABS: Albumin 2.9 g/dL (3.8-4.8); Alpha 1 Globulin 0.3 g/dL (0.2-0.3); Alpha 2 Globulin 0.7 g/dL (0.5-0.9); Beta 1 Globulin 0.4 g/dL (0.4-0.6); Gamma Globulin 0.6 g/dL (0.8-1.7); Interpretation Consistent with; Protein, Total 5.3 g/dL (6.1-8.1)
[2023-09-10 13:32] LABS: Chloride Rand Ur 58 mmol/L (32-290); Chloride/Creatinine Rand Ur 223 (38-318); Creatinine Random Urine 26 mg/dL (20-275)
== END 2023-09-07 14:20 | disposition home or self-care (01) | DRG 641 ==
LOC: CHSED 09-04 01:16 → CHS2ND 09-04 08:40
PROVIDERS: Nurse Practitioner; Admitting Provider Internal Medicine; Emergency Provider Emergency Medicine; PCP Family Medicine; Visit Provider Internal Medicine
DX: E87.1 Hypo-osmolality and hyponatremia (principal); I25.10 Atherosclerotic heart disease of native coronary artery without angina pectoris; I10 Essential (primary) hypertension; I73.9 Peripheral vascular disease, unspecified; K58.9 Irritable bowel syndrome, unspecified; R63.4 Abnormal weight loss; G14 Postpolio syndrome; G47.00 Insomnia, unspecified; F32.A Depression, unspecified; F41.9 Anxiety disorder, unspecified; Z86.718 Personal history of other venous thrombosis and embolism; Z79.82 Long term (current) use of aspirin
CPT/HCPCS: 36415; 80048; 80053; 81001; 82436; 82533; 82570; 83735; 83930; 84155; 84165; 84295; 84300; 84443; 84540; 85025; 85027; 97110; 97161; 97165; 97530; 99285; A9270; J2405; J7030; J7060

== ENCOUNTER 2023-09-10 09:50 | Outpatient (CLI) | payer MEDICARE, SELFPAY ==
[2023-09-10 11:08] LABS: Anion Gap 11 mmol/L (8-16); Blood Urea Nitrogen 14 mg/dL (7-18); Calcium 8.8 mg/dL (8.5-10.1); Carbon Dioxide 25 mmol/L (21-32); Chloride 102 mmol/L (98-108); Estimated Glomerular Filt Rate > 60; Glucose 98 mg/dL (70-99); Osmolality Calculated 286 mOsm/kg (285-295); Potassium 5.1 mmol/L (3.5-5.1); Sodium 138 mmol/L (136-145)
== END 2023-09-10 09:51 | disposition home or self-care (01) ==
LOC: CHSLAB 09:51
PROVIDERS: PCP Family Medicine; Visit Provider Nurse Practitioner
DX: E87.1 Hypo-osmolality and hyponatremia (principal)
CPT/HCPCS: 36415; 80048

== ENCOUNTER 2023-09-27 11:51 | Outpatient (CLI) | payer MEDICARE, SELFPAY ==
--- NOTE | ~2023-09-27 | DEXA_ITS ---
? Bone Density Report? Name:? ENMA MATOS Patient ID:??? [id number] Age:? 82 Sex:? Female Ethnicity:? White Date of : 1940 Indication: postmenopausal; screening for osteoporosis; height loss; inflammatory bowel disease; hysterectomy; Referring Provider: NAMITA ONOFRE Study: Bone densitometry was performed. Exam Date: September 27, 2023 Accession number: [id number] Bone Density: Region?BMD??? T-score? Z-score?? Classification AP Spine(L1, L2, L3)? 1.289??? 2.5?5.3? Normal Femoral Neck (Left)? 0.563?? -2.6? -0.1? Osteoporosis Total Hip (Left)?0.670?? -2.2? 0.1? Osteopenia Femoral Neck (Right)? 0.731?? -1.1? 1.5? Osteopenia Total Hip (Right)? 0.866?? -0.6? 1.7? Normal Femoral Neck Mean? 0.647?? -1.8? 0.7? Osteopenia Total Hip Mean?0.768?? -1.4? 0.9? Osteopenia World Health Organization criteria for BMD impression classify patients as: Normal (T-score at or above -1.0), Osteopenia (T-score between -1.0 and -2.5), or Osteoporosis (T-score at or below -2.5). 10-year Fracture Risk: FRAX not reported because: ? Some T-score for Spine Total or Hip Total or Femoral Neck at or below -2.5 Clinical Information Provided by Patient: Has the following medical conditions: Inflammatory bowel diseases, Hysterectomy Patient maximum height was 65 Menopause Age: 48 No regular weight bearing exercise Does not regularly consume dairy products Onset of menses at age 10 Number of children 5 Impression: The patient has osteoporosis, based on the Left Femoral Neck T- score. Discussion: INCREASED RISK OF FRACTURE. BONE DENSITY IS UNDESIRABLY LOW AT ONE OR MORE SKELETAL SITES, CONSISTENT WITH POSTMENOPAUSAL OSTEOPOROSIS. This patient's lowest T-score meets the World Health Organization's (WHO) criteria for osteoporosis at one or more sites (T-score -2.5 or below).? In untreated patients, the risk of osteoporotic fracture increases approximately two-fold for each 1.0 SD decrease in T-score.? Low bone density is not the only risk factor for fracture; also consider factors such as patient's age, frailty or poor health, risk of falling, risk of injury, previous osteoporotic fracture, family history of osteoporosis, cigarette smoking, low body weight, etc.? Not everyone with low bone mineral density has osteoporosis; osteomalacia and other metabolic bone disorders should also be considered. Patients who have osteoporosis should be evaluated for specific diseases and conditions (secondary causes) that may cause or contribute to bone loss.? The [place] Association [employer] Clinical Endocrinologists (AACE) and National Osteoporosis Foundation (NOF) recommend pharmacologic intervention for all postmenopausal women whose T-score is in this range. The patient should follow a healthful lifestyle (good nutrition with adequate calcium and vitamin D, and appropriate weight-bearing exercise). Follow-Up: Consider a repeat BMD and Vertebral Fracture Assessment (VF
== END 2023-09-27 11:52 | disposition home or self-care (01) ==
PROVIDERS: PCP Nurse Practitioner Family; Visit Provider Nurse Practitioner Family
DX: Z78.0 Asymptomatic menopausal state (principal); M81.0 Age-related osteoporosis without current pathological fracture; M85.89 Other specified disorders of bone density and structure, multiple sites
CPT/HCPCS: 77080

== ENCOUNTER 2023-10-04 11:32 | Outpatient (CLI) | payer MEDICARE, SELFPAY ==
[2023-10-04 12:06] LABS: Alanine Aminotransferase 18 U/L (14-59); Alkaline Phosphatase 73 U/L (46-116); Anion Gap 9 mmol/L (4-12); Aspartate Amino Transferase 19 U/L (15-37); Bilirubin,Total 0.8 mg/dL (0.00-1.00); Blood Urea Nitrogen 12 mg/dL (7-18); Calcium 8.7 mg/dL (8.5-10.1); Carbon Dioxide 29 mmol/L (21-32); Chloride 103 mmol/L (98-108); Estimated Glomerular Filt Rate 54; Glucose 110 mg/dL (70-99); Osmolality Calculated 292 mOsm/kg (285-295); Potassium 4.4 mmol/L (3.5-5.1); Sodium 141 mmol/L (136-145); Total Protein 6.7 g/dL (6.4-8.2)
== END 2023-10-04 11:33 | disposition home or self-care (01) ==
LOC: CHSLAB 11:34
PROVIDERS: PCP Family Medicine; Visit Provider Family Medicine
DX: R53.1 Weakness (principal)
CPT/HCPCS: 36415; 80053

== ENCOUNTER 2023-10-30 13:23 | Outpatient (CLI) | payer MEDICARE, SELFPAY ==
[2023-10-30 13:43] LABS: Bilirubin Urine Negative (Negative); Blood Urine Trace-intact (Negative); Color Urine Light Yellow (Yellow); Glucose Urine UA Negative (Negative); Ketones Urine Negative (Negative); Leukocyte Esterase Ur 3+ (Negative); Nitrate Urine Positive (Negative); Protein Urine Negative (Negative); Urobilinogen Urine 0.2 mg/dL (0.2-1.0)
[2023-10-30 13:54] LABS: Add Urine Microscopic? YES; Appearance Urine Sl Cloudy (Clear); Bacteria Urine 3+ /hpf; RBC Urine 0-2 /hpf (0-2); Squamous Epithelial Cell Urine Rare /hpf (Few); WBC Urine 31-50 /hpf (0-3)
[2023-10-30 14:11] LABS: Alanine Aminotransferase 22 U/L (14-59); Albumin Level 3.5 g/dL (3.4-5.0); Alkaline Phosphatase 69 U/L (46-116); Anion Gap 8 mmol/L (4-12); Aspartate Amino Transferase 20 U/L (15-37); Bilirubin,Total 0.5 mg/dL (0.00-1.00); Blood Urea Nitrogen 11 mg/dL (7-18); Calcium 9.1 mg/dL (8.5-10.1); Carbon Dioxide 30 mmol/L (21-32); Chloride 99 mmol/L (98-108); Estimated Glomerular Filt Rate > 60; Glucose 93 mg/dL (70-99); Osmolality Calculated 283 mOsm/kg (285-295); Potassium 4.2 mmol/L (3.5-5.1); Sodium 137 mmol/L (136-145); Total Protein 6.7 g/dL (6.4-8.2)
== END 2023-10-30 13:24 | disposition home or self-care (01) ==
LOC: CHSLAB 13:25
PROVIDERS: PCP Family Medicine; Visit Provider Family Medicine
DX: R53.1 Weakness (principal); R30.0 Dysuria; I10 Essential (primary) hypertension
CPT/HCPCS: 36415; 80053; 81001; 87077; 87086; 87088; 87186

== ENCOUNTER 2023-11-12 15:13 | Outpatient (NON) | payer MEDICARE, SELFPAY ==
[2023-11-12 15:58] LABS: Appearance Urine Cloudy (Clear); Bilirubin Urine Negative (Negative); Blood Urine Trace-intact (Negative); Color Urine Light Yellow (Yellow); Glucose Urine UA Negative (Negative); Ketones Urine Negative (Negative); Leukocyte Esterase Ur 3+ LEU/UL (Negative); Nitrate Urine Positive (Negative); Protein Urine Negative (Negative); Urobilinogen Urine 0.2 mg/dL (0.2-1.0)
[2023-11-12 16:15] LABS: Add Urine Microscopic? YES; Bacteria Urine 4+ /hpf; RBC Urine 0-2 /hpf (0-2); Squamous Epithelial Cell Urine Few /hpf (Few); WBC Urine >75 /hpf (0-3)
== END 2023-11-12 15:14 | disposition home or self-care (01) ==
LOC: CHSLAB 15:14
PROVIDERS: Visit Provider Nurse Practitioner Family
DX: R39.9 Unspecified symptoms and signs involving the genitourinary system (principal)
CPT/HCPCS: 81001; 87077; 87086; 87088; 87186

== ENCOUNTER 2023-11-27 13:45 | Outpatient (CLI) | payer MEDICARE, SELFPAY ==
--- NOTE | ~2023-11-27 | CT_ITS ---
EXAMINATION: CT brain wo con DATE: 11/27/2023 14:14 INDICATION: Head injury. TECHNIQUE: Computed tomography (CT) of the head was performed without intravenous contrast. The mA wa s adjusted according to patient size. Iterative reconstruction technique was employed. The dose-lengt h product was 605.33 mGy-cm. COMPARISON: Head CT 08/29/2023 FINDINGS: There are scattered areas of low attenuation in the cerebral white matter. There is an empt y sella. There is no intracranial hemorrhage, acute infarction, or abnormal intracranial mass lesion. 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 The ventricles are normal in size. There are likely changes of ocular lens replacement surgeries. There is mild mucosal thickening in the ethmoid sinuse s. The mastoid air cells are normal. IMPRESSION: 1. 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 2. Moderate nonspecific cerebral white matter disease, which likely represents chronic small vessel i schemic disease. Reviewed, dictated and finalized at location A. IMPRESSION: 1. 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 2. Moderate nonspecific cerebral white matter disease, which likely represents chronic small vessel ischemic disease.
--- NOTE | ~2023-11-27 | XR_ITS ---
XR foot RT min 3V Ordering provider: Jose A Lakhani DO History: . M79.671 - Pain in right foot, dropped a 2L coke bottle . Comparison: None. FINDINGS: BONES: Highly suggestive Fracture of the distal metaphysis of the proximal phalanx of the little toe. No other fractures seen. Osteopenia of the bones. JOINT SPACES: Normal. No tarsal coalition. SOFT TISSUES: calcaneal spur. IMPRESSION: Highly suggestive fracture of the distal metaphysis of the proximal phalanx of the little toe. Follow -up advised. Reviewed, dictated and finalized at location A. IMPRESSION: Highly suggestive fracture of the distal metaphysis of the proximal phalanx of the little toe. Follow-up advised.
[2023-11-27 14:05] LABS: Basophils Absolute Auto 0.04 K/mm3 (0.00-0.10); Basophils Percent Auto 0.8 % (0.0-1.0); Eosinophils Absolute Auto 0.13 K/mm3 (0.02-0.50); Eosinophils Percent Auto 2.6 % (1.0-6.0); Hematocrit 34.6 % (35.0-42.0); Hemoglobin 11.4 g/dL (11.7-13.8); Immature Granulocyte Absolute 0.01 K/mm3 (0.00-0.00); Immature Granulocyte Percent A 0.2 % (0.0-0.0); Lymphocytes Absolute Auto 1.46 K/mm3 (1.10-4.50); Lymphocytes Percent Auto 29.1 % (18.0-42.0); Mean Corpuscular HGB Conc 32.9 g/dL (32-36); Mean Corpuscular Hemoglobin 29.4 pg (27.0-31.0); Mean Corpuscular Volume 89.2 fL (78.0-102.0); Mean Platelet Volume 10.3 fl (9.2-11.8); Monocytes Absolute Auto 0.74 K/mm3 (0.10-0.90); Monocytes Percent Auto 14.8 % (2.0-11.0); Neutrophils Absolute Auto 2.63 K/mm3 (1.70-7.20); Neutrophils Percent Auto 52.5 % (50.0-70.0); Platelet Count Result 173 K/mm3 (150-420); Red Blood Count 3.88 M/mm3 (4.20-5.40); Red Cell Distribution Width 12.8 % (11.6-14.4)
[2023-11-27 14:39] LABS: Thyroid Stimulating Hormone Reflex 1.53 u/IU/mL (0.36-3.74)
[2023-11-27 14:44] LABS: Appearance Urine Clear (Clear); Bilirubin Urine Negative (Negative); Blood Urine Negative (Negative); Color Urine Yellow (Yellow); Glucose Urine UA Negative (Negative); Ketones Urine Negative (Negative); Leukocyte Esterase Ur Negative LEU/UL (Negative); Nitrate Urine Positive (Negative); Protein Urine Negative (Negative); Specific Grav Ur 1.015 (1.010-1.020); Urobilinogen Urine 0.2 mg/dL (0.2-1.0)
[2023-11-27 14:45] LABS: Alanine Aminotransferase 23 U/L (14-59); Albumin Level 3.2 g/dL (3.4-5.0); Alkaline Phosphatase 61 U/L (46-116); Anion Gap 5 mmol/L (4-12); Aspartate Amino Transferase 21 U/L (15-37); Bilirubin,Total 0.6 mg/dL (0.00-1.00); Blood Urea Nitrogen 13 mg/dL (7-18); Calcium 8.5 mg/dL (8.5-10.1); Carbon Dioxide 28 mmol/L (21-32); Chloride 96 mmol/L (98-108); Estimated Glomerular Filt Rate > 60; Folic Acid 15.3 ng/mL (8.6->20); Glucose 100 mg/dL (70-99); Osmolality Calculated 268 mOsm/kg (285-295); Potassium 4.5 mmol/L (3.5-5.1); Sodium 129 mmol/L (136-145); Total Protein 6.6 g/dL (6.4-8.2); Troponin I 5.8 ng/L (0.00-60.4); Vitamin B12 282 pg/mL (193-986)
[2023-11-27 14:53] LABS: Add Urine Microscopic? YES; Squamous Epithelial Cell Urine Few /hpf (Few); WBC Urine 0-3 /hpf (0-3)
[2023-11-27 14:54] LABS: Bacteria Urine 2+ /hpf; Hyaline Casts Urine 0-2 /lpf; Mucus Urine Moderate /lpf
== END 2023-11-27 13:46 | disposition home or self-care (01) ==
LOC: CHSIMG 13:48
PROVIDERS: Nurse Practitioner Family; PCP Family Medicine; Visit Provider Family Medicine
DX: E53.8 Deficiency of other specified B group vitamins (principal); E03.9 Hypothyroidism, unspecified; R53.1 Weakness; M79.671 Pain in right foot; R39.9 Unspecified symptoms and signs involving the genitourinary system; R82.90 Unspecified abnormal findings in urine; Z86.73 Personal history of transient ischemic attack (TIA), and cerebral infarction without residual deficits; R90.82 White matter disease, unspecified
CPT/HCPCS: 36415; 70450; 73630; 80053; 81001; 82607; 82746; 84443; 84484; 85025; 87086; 87088

== ENCOUNTER 2023-12-01 18:16 | Emergency (ER) | payer MEDICARE, SELFPAY ==
--- NOTE | ~2023-12-01 | XR_ITS ---
AP and lateral views of the left tibia/fibula Clinical History: Trauma, laceration Findings: No acute fracture or dislocation is seen. Osseous alignment is anatomic. 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 Remaining joint spaces are preserved without signifi cant erosive or degenerative change. There is mild diffuse subcutaneous soft tissue edema. Impression: No acute osseous or articular abnormality. Diffuse subcutaneous soft tissue edema, nonspecific. 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 Reviewed, dictated and finalized at location M. Impression: No acute osseous or articular abnormality. Diffuse subcutaneous soft tissue edema, nonspecific. 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
[2023-12-01 18:16] VITALS: BP 161/80; PULSE 82; RESP 16; TEMP 36.4; O2SAT 96
--- NOTE | 2023-12-01 18:23 | ED.GENADULT ---
HPI - General Adult General Chief complaint: Urogenital-Female Stated complaint: wound to buttocks Time Seen by Provider: 12/01/23 18:21 Source: patient Mode of arrival: ambulatory Limitations: no limitations History of Present Illness HPI narrative: 83-year-old white female complains of sore left buttocks she has had that months ago the doctor gave an antibiotic and it seemed to help. But seems like it has come back. Just a dry patch on the left side of her buttocks of up on her sacrum area above her rectum. She has external hemorrhoids. She also complains of dysuria that she has had for over week and was seen by her primary care got put on med Macrodantin. She also fell this week and bruised in cut her left leg. She saw the doctor but they did do an x-ray. She is on Eliquis she got superficial abrasion/laceration across her upper vogel with swelling of her lower extremity. She says she has lymphedema of that leg and the bruising is new but the swelling is essentially the same Or little bit more than usual.She has a history of getting Botox in her vaginal area but stopped doing this because it did seem like was helping she had similar symptoms. She has a history of chronic stress incontinence. Denies any other injuries from her fall. Denies any shortness of breath cough fever sore throat runny nose difficulty breathing back pain. She has had pain over her left leg where the contusion is. She has [place] that she can take every 8 hours for pain. Denies any problems stooling any other rash besides her buttocks. Denies any bleeding. She is on Eliquis. Denies any problems eating or drinking or any other complaints. Related Data Home Medications Medication Instructions Recorded Confirmed furosemide 20 mg tablet 20 mg PO DAILY 10/15/20 12/01/23 nitroglycerin 0.4 mg sublingual 0.4 mg sublingual Q5M PRN Chest 03/27/23 12/01/23 tablet Pain aspirin 81 mg tablet,delayed 81 mg PO DAILY 05/31/23 12/01/23 release Allergies Allergy/AdvReac Type Severity Reaction Status Date / Time amoxicillin Allergy Unknown Verified 12/01/23 18:25 prednisone AdvReac Dizziness Verified 12/01/23 18:25 [facility] Past Medical History Medical History Achilles tendon pain CAD (coronary artery disease) Depression DVT (deep venous thrombosis) Hip pain HTN (hypertension) IBS (irritable bowel syndrome) Left leg weakness Peripheral vascular disease Polio Post-polio syndrome Right foot pain Surgical History Surgical History H/O: hysterectomy History of surgery on lower extremity Left leg due to complications of polio Stented coronary artery Family History Family History Sibling Heart disease Father Heart disease Other Family history of arthritis Family history of mental disorder Hypertension Social History Social History Smoking status: Never smoker Second hand tobacco smoke exposure: No Alcohol intake: current Alcohol use details: very rarely Substance use: never Substance use type: does not use Do You Feel Safe in your Home?: Yes Lack of Transportation: No Lack of Food: Never True Current Housing: I Have Housing Concerned About Future Housing: No Difficulty Paying Gas/Electric Bills: YES Difficulty Paying for Meds: No Currently Unemployed: No Education: High School Diploma/GED Difficulty w/ Childcare or Family Care: No Living arrangements: with family Additional living arrangements comments: daughter Amelie lives with her Occupation/Education: retired Gender identity (if verbalized by the patient): Female Sexual Orientation (if Verbalized by the Patient): Straight or Heterosexual Spiritual care concerns: No Exam Narrative: White female p
--- NOTE | 2023-12-01 18:53 | PC.NURSE ---
patient report received from Marilee MEEHAN. patient resting on stretcher. family at the bedside. call light in reach
[2023-12-01 19:09] LABS: Appearance Urine Clear (Clear); Bilirubin Urine Negative (Negative); Blood Urine Negative (Negative); Color Urine Light Yellow (Yellow); Glucose Urine UA Negative (Negative); Ketones Urine Negative (Negative); Leukocyte Esterase Ur Negative LEU/UL (Negative); Nitrate Urine Negative (Negative); Protein Urine Negative (Negative); Urobilinogen Urine 0.2 mg/dL (0.2-1.0)
[2023-12-01 19:19] LABS: Add Urine Microscopic? NO
--- NOTE | 2023-12-01 19:23 | PC.NURSE ---
xray at the bedside. ER provider at the bedside
[2023-12-01] MEDS: TETANUS,DIPHTHERIA,AC PERTUSSIS ADULT 0.5 ML (ADACEL) IM (19:29)
--- NOTE | 2023-12-01 19:43 | PC.NURSE ---
wound to left lower leg cleaned with saline and covered with bandaid. awaiting xray results.
[2023-12-01 21:25] VITALS: BP 172/72; PULSE 82; RESP 18; TEMP 36.4; O2SAT 96
[2023-12-01] MEDS: CEPHALEXIN 500 MG CAPSULE PO (21:31)
--- NOTE | 2023-12-04 12:11 | PC.NURSE ---
FINAL URINE CULTURE RESULTS: NO GROWTH
== END 2023-12-01 21:36 | disposition home or self-care (01) ==
PROVIDERS: Emergency Provider Emergency Medicine
DX: S80.12XA Contusion of left lower leg, initial encounter (principal); R30.0 Dysuria; L03.116 Cellulitis of left lower limb; R21 Rash and other nonspecific skin eruption; I25.10 Atherosclerotic heart disease of native coronary artery without angina pectoris; Z79.899 Other long term (current) drug therapy; Z23 Encounter for immunization; Z79.01 Long term (current) use of anticoagulants; Z79.82 Long term (current) use of aspirin; Z86.718 Personal history of other venous thrombosis and embolism; X58.XXXA Exposure to other specified factors, initial encounter
CPT/HCPCS: 73590; 81003; 87086; 90471; 90715; 99283; A9270

== ENCOUNTER 2023-12-05 14:04 | Outpatient (CLI) | payer MEDICARE, SELFPAY ==
[2023-12-05 14:42] LABS: Alanine Aminotransferase 28 U/L (14-59); Albumin Level 3.4 g/dL (3.4-5.0); Alkaline Phosphatase 72 U/L (46-116); Anion Gap 8 mmol/L (4-12); Aspartate Amino Transferase 20 U/L (15-37); Bilirubin,Total 0.5 mg/dL (0.00-1.00); Blood Urea Nitrogen 12 mg/dL (7-18); Calcium 8.7 mg/dL (8.5-10.1); Carbon Dioxide 30 mmol/L (21-32); Chloride 100 mmol/L (98-108); Estimated Glomerular Filt Rate > 60; Glucose 100 mg/dL (70-99); Osmolality Calculated 285 mOsm/kg (285-295); Potassium 4.6 mmol/L (3.5-5.1); Sodium 138 mmol/L (136-145); Total Protein 6.8 g/dL (6.4-8.2)
== END 2023-12-05 14:05 | disposition home or self-care (01) ==
LOC: CHSLAB 14:05
PROVIDERS: PCP Family Medicine; Visit Provider Family Medicine
DX: E87.1 Hypo-osmolality and hyponatremia (principal)
CPT/HCPCS: 36415; 80053

== ENCOUNTER 2023-12-19 06:10 | Emergency (ER) | payer MEDICARE, SELFPAY ==
[2023-12-19] VITALS (18 sets, daily range): BP systolic 132–163; BP diastolic 55–66; PULSE 59–72; RESP 12–20; TEMP 36.4–36.6; O2SAT 96–99
--- NOTE | ~2023-12-19 | XR_ITS ---
Portable chest x-ray Comparison: 08/29/2023 Clinical History: Weakness Findings: Lungs are clear, without focal consolidation or pleural effusion. Cardiomediastinal silho uette is stable. Bones and soft tissues are unremarkable. Impression: Normal chest. Reviewed, dictated and finalized at location . Impression: Normal chest.
--- NOTE | 2023-12-19 06:19 | ECG_ITS ---
Test Date: 2023-12-19 06:28:27 Measurements Intervals [place] Rate: 66 P: 52 TN: 189 QRS: 28 QRSD: 94 T: 5 QT: 414 QTc: 434 Interpretive Statements SINUS RHYTHM WITH SINUS ARRHYTHMIA MINIMAL VOLTAGE CRITERIA FOR LVH, CONSIDER NORMAL VARIANT [MEETS CRITERIA IN ONE OF: R(aVL), S(V1), R(V5), R(V5/V6)+S(V1)] No previous ECG available for comparison Electronically Signed On 12-19-2023 13:27:23 CDT by Fazal Lee M.D.
--- NOTE | 2023-12-19 06:21 | ED.WEAKNESS ---
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 patient does not have any focal deficits. The patient has left leg weakness secondary to polio. -- The patient feels shaky since she was started on amlodipine. The patient's blood pressure is currently stable. The patient feels that her symptoms are similar to the urinary tract she has had a short while ago. The patient does not have any hematuria or dysuria. Patient denies any chest pain or shortness of breath. Patient has left leg swelling which is chronic. She has a history of DVT and is currently on Eliquis. MD Complaint: generalized weakness Onset (ago): week(s) ( One week) Duration: constant Location: generalized Migration: none Relieving factors: none Exacerbating factors: none Context: new medication ( she was started on amlodipine) Associated symptoms: headaches and myalgias Related Data Home Medications Medication Instructions Recorded Confirmed furosemide 20 mg tablet 20 mg PO DAILY 10/15/20 12/19/23 nitroglycerin 0.4 mg sublingual 0.4 mg sublingual Q5M PRN Chest 03/27/23 12/19/23 tablet Pain aspirin 81 mg tablet,delayed 81 mg PO DAILY 05/31/23 12/19/23 release Allergies Allergy/AdvReac Type Severity Reaction Status Date / Time amoxicillin Allergy Unknown Verified 12/24/23 07:46 prednisone AdvReac Dizziness Verified 12/24/23 07:46 Review of Systems Review of Systems: All systems reviewed & are unremarkable except as noted in HPI and below Constitutional: Constitutional: Reports as per HPI, Reports no additional constitutional complaints and Reports weakness Eyes: Eyes: Reports as per HPI and Reports no additional eye complaints ENT: Reports system reviewed and no additional complaints, except as documented and Reports as per HPI Cardiovascular: Cardiovascular: Reports as per HPI and Reports no additional cardiovascular complaints Respiratory: Respiratory: Reports as per HPI and Reports no additional respiratory complaints Genitourinary: Genitourinary: Reports no additional female genitourinary complaints and Reports as per HPI Musculoskeletal: Musculoskeletal: Reports no additional musculoskeletal complaints and Reports as per HPI Integumentary/Breasts: Skin/Breast: Reports system reviewed and no additional complaints, except as docu and Reports as per HPI Neurologic: Reports system reviewed and no additional complaints, except as documented and Reports as per HPI Psychiatric: Psychiatric: Reports no additional psychiatric complaints and Reports as per HPI Endocrine: Endocrine: Reports no additional endocrine complaints and Reports as per HPI Hematologic/Lymphatic: Hematologic/Lymphatic: Reports no additional hematologic/lymphatic complaints and Reports as per HPI Allergic/Immunologic: Allergic/Immunologic: Reports no additional allergic/immunologic complaints and Reports as per HPI [facility]LY [facility] Past Medical History Medical History Achilles tendon pain CAD (coronary artery disease) Depression DVT (deep venous thrombosis) Hip pain HTN (hypertension) IBS (irritable bowel syndrome) Left leg weakness Peripheral vascular disease Polio Post-polio syndrome Right foot pain Surgical History Surgical History H/O: hysterectomy History of surgery on lower extremity Left leg due to complications of polio Stented coronary artery Family History Family History Si
--- NOTE | 2023-12-19 06:39 | PC.NURSE ---
pt changed into gown and hooked up to heart monitor. pt asked if they could urinate pt stated not at the moment. pt given another blanket and is resting comfortably.
[2023-12-19 06:41] LABS: Basophils Absolute Auto 0.06 K/mm3 (0.00-0.10); Basophils Percent Auto 0.9 % (0.0-1.0); Eosinophils Absolute Auto 0.29 K/mm3 (0.02-0.50); Eosinophils Percent Auto 4.3 % (1.0-6.0); Hematocrit 31.5 % (35.0-42.0); Hemoglobin 11.1 g/dL (11.7-13.8); Immature Granulocyte Absolute 0.02 K/mm3 (0.00-0.00); Immature Granulocyte Percent A 0.3 % (0.0-0.0); Lymphocytes Absolute Auto 1.79 K/mm3 (1.10-4.50); Lymphocytes Percent Auto 26.8 % (18.0-42.0); Mean Corpuscular HGB Conc 35.2 g/dL (32-36); Mean Corpuscular Hemoglobin 30.5 pg (27.0-31.0); Mean Corpuscular Volume 86.5 fL (78.0-102.0); Mean Platelet Volume 10.4 fl (9.2-11.8); Monocytes Absolute Auto 0.98 K/mm3 (0.10-0.90); Monocytes Percent Auto 14.7 % (2.0-11.0); Neutrophils Absolute Auto 3.53 K/mm3 (1.70-7.20); Platelet Count Result 174 K/mm3 (150-420); Red Blood Count 3.64 M/mm3 (4.20-5.40); Red Cell Distribution Width 12.5 % (11.6-14.4); White Blood Count 6.7 K/mm3 (4.8-10.8)
[2023-12-19 06:55] LABS: Lactic Acid Reflex 0.4 mmol/L (0.4-2.0)
[2023-12-19 07:02] LABS: Alanine Aminotransferase 21 U/L (14-59); Albumin Level 2.9 g/dL (3.4-5.0); Alkaline Phosphatase 63 U/L (46-116); Anion Gap 5 mmol/L (4-12); Aspartate Amino Transferase 18 U/L (15-37); Bilirubin,Total 0.7 mg/dL (0.00-1.00); Blood Urea Nitrogen 10 mg/dL (7-18); Calcium 8.4 mg/dL (8.5-10.1); Carbon Dioxide 26 mmol/L (21-32); Chloride 92 mmol/L (98-108); Estimated CRCL calculation 54 ml/min; Estimated Glomerular Filt Rate > 60; Glucose 98 mg/dL (70-99); Lipase 16 U/L (16-77); Magnesium 1.7 mg/dL (1.8-2.4); NT Pro B Type Natriuretic Pept 601 pg/mL (0-450); Osmolality Calculated 255 mOsm/kg (285-295); Potassium 3.9 mmol/L (3.5-5.1); Sodium 123 mmol/L (136-145); Thyroid Stimulating Hormone 1.87 uIU/mL (0.36-3.74); Total Protein 6.2 g/dL (6.4-8.2); Troponin I 7.5 ng/L (0.00-60.4)
[2023-12-19] MEDS: SODIUM CHLORIDE 0.9% IV 1,000 ML 999 ML IV CONT (07:31)
[2023-12-19 08:11] LABS: Appearance Urine Clear (Clear); Bilirubin Urine Negative (Negative); Blood Urine Trace-intact (Negative); Color Urine Light Yellow (Yellow); Glucose Urine UA Negative (Negative); Ketones Urine Negative (Negative); Leukocyte Esterase Ur 1+ LEU/UL (Negative); Nitrate Urine Negative (Negative); Protein Urine Negative (Negative); Urobilinogen Urine 0.2 mg/dL (0.2-1.0)
[2023-12-19 08:21] LABS: Add Urine Microscopic? YES; Bacteria Urine Trace /hpf; Mucus Urine Moderate /lpf; RBC Urine None seen /hpf (0-2); Squamous Epithelial Cell Urine Moderate /hpf (Few)
--- NOTE | 2023-12-19 08:25 | PC.NURSE ---
0808: completed a straight cath on pt & 10 ml was retrieved and sent to lab
--- NOTE | 2023-12-19 08:36 | PC.NURSE ---
Patient's friend Linda called for ride home. Patient getting dressed at this time. Will place in waiting room to wait for ride following discharge.
--- NOTE | 2023-12-21 13:14 | PC.NURSE ---
urine culture, reviewed, no growth
== END 2023-12-19 08:38 | disposition home or self-care (01) ==
PROVIDERS: Internal Medicine Critical Care Medicine; Emergency Provider Emergency Medicine; PCP Family Medicine
DX: R53.1 Weakness (principal); N39.0 Urinary tract infection, site not specified; E87.1 Hypo-osmolality and hyponatremia; I25.10 Atherosclerotic heart disease of native coronary artery without angina pectoris; I10 Essential (primary) hypertension; Z79.01 Long term (current) use of anticoagulants; Z79.82 Long term (current) use of aspirin; Z86.718 Personal history of other venous thrombosis and embolism
CPT/HCPCS: 36415; 71045; 80053; 81001; 83605; 83690; 83735; 83880; 84443; 84484; 85025; 87086; 93005; 96360; 99284; J7030

== ENCOUNTER 2023-12-19 11:30 | Outpatient (RCR) | payer MEDICARE, SELFPAY ==
--- NOTE | 2023-10-17 12:40 | WPDSLSEVAL ---
[facility] HPI HPI Referral Source PCP Visit Attended By patient and staff History Obtained From patient Chief Complaint Dr. Lakhani discontinued my alprazolam, I can not sleep History of Present Illness this is an 82-year-old white female with a decades long history of anxiety and depression. Earlier this year patient had multiple medical issues including hypokalemia, hyponatremia, DVT, among others. At that time she had a falling out with her previous PCP and switched to Dr. Lakhani, who it sounds like she is more satisfied with, but he took her off of Xanax around that time As he felt she was a fall risk (patient does have a history of falls), which she been on for years, and now says that she is anxious and can not sleep. It sounds like they tried venlafaxine, as well as amitriptyline, but these were ineffective and caused side effects. According to patient, she had been prescribed Xanax 1 mg b.i.d. p.r.n. which she always took to sleep, and sometimes an additional tablet, but no more than 2 tablets a day. She denies depressed mood, but admits to loss of interest in things, pineda insomnia-will take several hours to go to sleep, finally going to sleep at 3:30 a.m. in the morning, then waking up at 6:30 a.m. and then getting up for the day. Patient says she has never really required much sleep, although she denies any symptoms of gricelda, hypomania, or psychosis. Denies decrease in appetite but has lost about 10 lb over the past month or so. Admits to fatigue, low self-esteem, difficulty concentrating. Denies suicidal or homicidal ideations. Also endorses anxious mood, restlessness, irritability, muscle tension. HPI: Quality & Associated Signs and Symptoms anxiety/panic attacks, low motivation, worthlessness, low energy, decreased need for sleep and irritability Evaluation of Sleep difficulty falling asleep, frequent awakening, early awakening and restlessness Past History Psychosocial Hx: born and raised in [facility] States she had a good childhood with no abuse or neglect. Graduated high school. 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 Patient in her late teens, was 63 years but for 30 years near the end of the marriage, before they reconciled and she took care of him in [place] when he was ill. It sounds like that in the late 60s he left her while she was . Patient has 4 daughters and 1 son. She has a close relationship with some of her children, 1 child with bipolar disorder lives with her and is on disability. There is some relationship conflicts. She says that all her children are angry with her because I was not a good mother and they disagree with me taking their dad back . Substance Use Hx: Never smoked. Patient says she has a drink occasionally. Used to have a medical marijuana card, and says that edibles did help with her anxiety. No illicit drugs Past Medical Hx: osteoarthritis, chronic pain, CAD, history of DVT, hypertension, irritable bowel syndrome, PVD, post-polio syndrome, lymphedema. Past Surgical Hx: Hysterectomy, coronary artery stent x2, leg surgeries from polio Past Psych Hx: patient ended up in the hospital in the 90s for depression anxiety. She saw Dr. Bates who she said was the best . She also saw Dr. Garcia For therapy,and she had high praise for him as well. Home Medications and Allergies: Medication Comments: patient states that she took a 1mg of Xanax up to twice a day, but this conflicts with her medication list. At any rate she is out of Xanax And has been for a few weeks. Review of Systems Review of Systems Constitutional Reports recent weight loss and other ( lymphedema) Eyes Reports WNL ENT Reports WNL Respiratory Reports WNL Cardiovascular Reports edema and other ( Coronary artery disease, stent placement, history DVT, hypertension, PVD) Gastrointestinal Reports other ( irri
--- NOTE | 2023-10-17 14:05 | PC.NURSE ---
This nurse called [facility] in [place] and spoke with Angi to order the patient Mirtazapine 7.5mg PO every evening X 30 days.
[2023-10-22 10:19] VITALS: BP 142/69; PULSE 142; RESP 20; TEMP 36.7; O2SAT 97
[2023-10-24 10:30] VITALS: BP 131/80; PULSE 68; RESP 20; TEMP 36.6; O2SAT 97
[2023-10-29 10:10] VITALS: BP 129/54; PULSE 64; RESP 20; TEMP 37.1; O2SAT 97
--- NOTE | 2023-10-31 09:40 | PC.NURSE ---
No nursing group due to MD visit.
[2023-10-31 10:17] VITALS: BP 140/68; PULSE 72; RESP 20; TEMP 36.8; O2SAT 96
--- NOTE | 2023-10-31 12:03 | WPDSLSPROGRE ---
Progress HPI Progress HPI Visit Attended By patient and staff History Obtained From patient Chief Complaint tired HPI this is a 2 week follow-up from admission. Patient is being seen for anxiety, and her main problem continues to be insomnia, since she was taken off of Xanax. She says that she tried Remeron 7.5 mg q.h.s. and not only did it not help with sleep, it made her feel very groggy the next day and so she only took 1 dose. Patient reports that there are times when she will feel hot and sweaty, and then cold. I told her that this could be long-term withdrawal from Xanax. She is at least trying group, and I encouraged her to continue. One of her main stressors tends to be financial, and she struggles with being able to afford her medications. We used a good Rx card for the Remeron and this got the cost down considerably. Average Number of Hours of Sleep 5 Sleep Quality difficulty falling asleep, frequent awakening and early awakening Change in PMFSH Releveant to Presenting Illness Yes Describe Changes in PMFSH Side effects to Remeron as above Review of Systems Review of Systems Constitutional Reports other ( recent weight loss, lymphedema) Eyes Reports WNL ENT Reports WNL Respiratory Reports WNL Cardiovascular Reports other ( edema, CAD, stent placement, hx of DVT, hypertension, PVD) Gastrointestinal Reports other ( irritable bowel syndrome) Musculoskeletal Reports abnormal gait, Reports assistive device, Reports diminished strength, Reports muscle stiffness and Reports other ( osteoarthritis, chronic pain) Neurologic Reports WNL Skin Reports WNL ADL's Reports WNL Exam Physical Exam Review of Lab Studies n/a Hygiene good General Behavior/Attitude Toward Examiner cooperative and irritable Pain Yes Pain Location generalized Pain Characteristics chronic Psychiatric Exam Level of Consciousness alert Orientation person, place, time and situation Speech normal rate/tone/volume/prosody and coherent Language able to comprehend questions Mood anxious, irritable Affect full range, appropriate and congruent Thought Processes/Form logical, linear and goal directed Thought Content anxiety symptoms, insomnia Delusions none Homicidal/Assaultive Ideation none Suicidal Ideation none Hallucinations none Attention/Concentration focused Attention/Concentration Testing Methods observation/interview Short Term Memory Impairment none STM Testing Methods clinical interview (assessment/observation) 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 Memory Impairment none LTM Testing Methods recall of biographical information Intellectual Functioning roughly average Intellectual Functioning Assessed By fund of knowledge Insight fair Insight Assessed By ability to recognize & acknowledge mental illness, ability to understand the implications of mental illness, understanding of treatment options and ability to comply with treatment Judgement fair Judgement Assessed By exploring recent decision-making MMSE n/a Patient Assets patient is willing to accept treatment, able to perform ADLs Patient Liabilities severe chronic anxiety Assessment and Plan Clinical Impression/Diag Clinical Impression/Diagnosis F 41.9. Will discontinue Remeron due to side effects. Start trazodone 25 mg q.h.s.. Monitor meds, continue IOP Progress Overview Reason for Continued Services in an Intensive Outpatient Program continued impaired mood and.or depression, patient would decompenste at a lower level of care, not at baseline level of functioning and high risk for relapse Treatment To Be Provided medication management and group/individual/rec therapy Discharge Disposition/Level of Care PCP Anticipated Discharge 8-12 weeks Certification Statement Certification Statement I believe this pa
--- NOTE | 2023-10-31 13:40 | PC.NURSE ---
This nurse called HERNANDEZ Davenport to discontinue Remeron 7.5mg every evening and order Trazodone 25mg every evening.
--- NOTE | 2023-11-05 15:02 | SLSTHERAPY ---
11/05/2023 3:03 Pat no-showed/no-called for 11/05/2023 group attendance.
[2023-11-07 10:09] VITALS: BP 140/82; PULSE 60; RESP 20; TEMP 36.6; O2SAT 97
--- NOTE | 2023-11-07 10:17 | PC.NURSE ---
No nursing group due to MD visit.
--- NOTE | 2023-11-07 11:52 | WPDSLSPROGRE ---
Progress HPI Progress HPI Visit Attended By patient and staff History Obtained From patient Chief Complaint One week medication follow-up HPI this is a medication follow-up. Patient is being seen for anxiety and severe insomnia, both as a result of benzodiazepine discontinuation. Last week she mentioned that she was alternatively feeling cold, then hot and sweaty, and at that time we considered the fact that it could be prolonged withdrawal, but she says that she was diagnosed with a UTI and just finished a course of antibiotics. She was experiencing visual hallucinations at times during the infection. Today she reports no hallucinations but still does not feel like the infection is totally cleared and she is going to see her doctor tomorrow. We started her on trazodone 50 mg q.h.s., but she ended up taking 50 because she did not sleep on the 25 mg. Patient states that she fell asleep very quickly but then woke up at 4 in the morning and could not get back to sleep. We discussed the fact this could be that she needs more trazodone, but that if she still has UTI did this is certainly playing a part. She enjoys the program participates well. Average Number of Hours of Sleep 7 Sleep Quality frequent awakening and early awakening Change in PMFSH Releveant to Presenting Illness Yes Describe Changes in PMFSH As above, chronic UTIs Review of Systems Review of Systems Constitutional Reports fatigue, recent weight loss and other ( lymphedema, UTI) Eyes Reports WNL ENT Reports WNL Respiratory Reports WNL Cardiovascular Reports edema and other ( CAD, stent placement, history of DVT, hypertension) Gastrointestinal Reports other ( irritable bowel syndrome) Musculoskeletal Reports abnormal gait, Reports assistive device, Reports diminished strength, Reports muscle stiffness and Reports other ( osteoarthritis, chronic pain) Neurologic Reports WNL Skin Reports WNL ADL's Reports WNL Exam Physical Exam Review of Lab Studies n/a Hygiene good General Behavior/Attitude Toward Examiner pleasant and cooperative Pain Yes Pain Location generalized Pain Characteristics chronic Psychiatric Exam Level of Consciousness alert Orientation person, place, time and situation Speech normal rate/tone/volume/prosody and coherent Language able to comprehend questions Mood anxious, less irritable Affect full range, appropriate and congruent Thought Processes/Form logical, linear and goal directed Thought Content anxiety symptoms Delusions none Homicidal/Assaultive Ideation none Suicidal Ideation none Hallucinations none Attention/Concentration focused Attention/Concentration Testing Methods observation/interview Short Term Memory Impairment none STM Testing Methods clinical interview (assessment/observation) Retirement Memory Impairment none LTM Testing Methods recall of biographical information Intellectual Functioning roughly average Intellectual Functioning Assessed By current events Insight fair and improving Insight Assessed By ability to recognize & acknowledge mental illness, ability to understand the implications of mental illness, understanding of treatment options and ability to comply with treatment Judgement fair and improving Judgement Assessed By exploring recent decision-making MMSE n/a Patient Assets patient is willing to accept treatment, able to perform ADLs Patient Liabilities severe chronic anxiety, insomnia, chronic UTIs Assessment and Plan Clinical Impression/Diag Clinical Impression/Diagnosis F4 1.9, some improvement. Will increase trazodone to 75 mg q.h.s. and she will follow-up with her PCP tomorrow. RTC in 1 week Progress Overview Reason for Continued Services in an Intensive Outpatient Program continued impaired mood and.or depression
--- NOTE | 2023-11-07 14:02 | PC.NURSE ---
This nurse called HERNANDEZ Davenport and ordered the patient Trazodone 50mg take one and a half tabs every evening X 30 days.
[2023-11-12 10:28] VITALS: BP 158/56; PULSE 66; RESP 20; TEMP 36.9; O2SAT 94
--- NOTE | 2023-11-14 09:04 | SLSTHERAPY ---
11/14/2023 9:05 Phone call received from Pat canceling 11/14/2023 due to illness; Pat is scheduled to return to group 11/19/2023.
[2023-11-19 10:40] VITALS: BP 127/60; PULSE 67; RESP 20; TEMP 37; O2SAT 97
--- NOTE | 2023-11-21 10:14 | PC.NURSE ---
No nursing group due to MD visit.
[2023-11-21 11:06] VITALS: BP 125/72; PULSE 60; RESP 20; TEMP 36.9; O2SAT 98
--- NOTE | 2023-11-21 13:12 | WPDSLSPROGRE ---
Progress HPI Progress HPI Visit Attended By patient and staff History Obtained From patient Chief Complaint anxiety HPI this is a 1 week follow-up. Our last visit we increased patient's trazodone to 75 mg q.h.s., which apparently helped, but she was still having difficulty sleeping so she increased it to 100 mg on her own. She is sleeping up to 6 hours a night which is a big improvement. Patient says she is still experiencing some anxiety and we talked about Cymbalta. Enjoys program, participates well. Daughter lives in patient's house with her, which is a stress for patient, especially near the end of the month as it sounds like that her daughter's injection wears off around that time. Average Number of Hours of Sleep 6 Sleep Quality early awakening Change in PMFSH Releveant to Presenting Illness Yes Describe Changes in PMFSH improved as above Review of Systems Review of Systems Constitutional Reports fatigue, recent weight loss and other ( chronic UTIs, lymphedema) Eyes Reports WNL ENT Reports WNL Respiratory Reports WNL Cardiovascular Reports edema and other ( CAD, stent placement, history of DVT, hypertension) Gastrointestinal Reports other ( irritable bowel syndrome) Musculoskeletal Reports abnormal gait, Reports assistive device, Reports diminished strength, Reports muscle stiffness and Reports other ( osteoarthritis, chronic pain) Neurologic Reports WNL Skin Reports WNL ADL's Reports WNL Exam Physical Exam Review of Lab Studies n/a Hygiene good General Behavior/Attitude Toward Examiner pleasant and cooperative Pain Yes Pain Location generalized, chronic Pain Characteristics chronic Psychiatric Exam Level of Consciousness alert Orientation person, time and situation Speech normal rate/tone/volume/prosody and coherent Language able to comprehend questions Mood anxious Affect full range, appropriate and congruent Thought Processes/Form logical, linear and goal directed Thought Content anxiety symptoms Delusions none Homicidal/Assaultive Ideation none Suicidal Ideation none Hallucinations none Attention/Concentration focused Attention/Concentration Testing Methods observation/interview Short Term Memory Impairment none STM Testing Methods clinical interview (assessment/observation) 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 Impairment none LTM Testing Methods recall of biographical information Intellectual Functioning Assessed By current events Insight fair and improving Insight Assessed By ability to recognize & acknowledge mental illness, ability to understand the implications of mental illness, understanding of treatment options and ability to comply with treatment Judgement fair and improving Judgement Assessed By exploring recent decision-making MMSE n/a Patient Assets patient is willing to accept treatment, able to perform ADLs Patient Liabilities severe chronic anxiety, chronic UTIs, insomnia, relationship with daughter Assessment and Plan Clinical Impression/Diag Clinical Impression/Diagnosis F 41.9, some improvement. Increase trazodone 100 mg q.h.s.. Start Cymbalta 20 mg q.a.m. for anxiety. Monitor meds, continue IOP Progress Overview Reason for Continued Services in an Intensive Outpatient Program continued impaired mood and.or depression, patient would decompenste at a lower level of care, not at baseline level of functioning and high risk for relapse Treatment To Be Provided medication management and group/individual/rec therapy Anticipated Discharge 8-12 weeks Certification Statement Certification Statement I believe this patient requires the services of the Intensive Outpatient Program and that there is reasonable expectation that the patient will make timely and significant practical improvement in the presenting acute sy
--- NOTE | 2023-11-26 09:44 | PC.NURSE ---
No nursing group due to nurse meeting.
--- NOTE | 2023-11-26 10:00 | PC.NURSE ---
When the patient was called she reported not having phone service and not feeling well. She plans to attend on .
--- NOTE | 2023-11-28 07:45 | SLSTHERAPY ---
11/28/2023 Phone call received from Krysta canceling 11/28/2023 group attendance due to illness (bad fall); Pat is scheduled to return to group 12/03/2023. 7:48
--- NOTE | 2023-12-03 09:01 | PC.NURSE ---
The patient called and reported she was not feeling well and was in the ER over the weekend. She will not be at her scheduled session today. This nurse informed the patient she is supposed to see the doctor here on .
--- NOTE | 2023-12-05 10:33 | PC.NURSE ---
The patient no called no showed for her scheduled group session and MD visit.
--- NOTE | 2023-12-12 07:24 | SLSTHERAPY ---
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
--- NOTE | 2023-12-17 15:06 | PC.NURSE ---
Attempted to call patient. No return phone call. Patient did not attend her scheduled group session today.
--- NOTE | 2023-12-19 12:11 | P.DS_ITS ---
Discharge Summary Mental Status See response to treatment Reason for Admission the patient is an 82-year-old white female with a decades long history of anxiety and depression. Earlier this year patient had multiple medical issues including hypokalemia, hyponatremia, DVT, among others. At that time she had a falling out with her previous PCP and switch to Dr. Lakhani, who it sounds like she is more satisfied with, but he took her off of Xanax around that time if she would was a fall risk ) patient does have history of falls), which she had been on for years, and now says that she is anxious and cannot sleep. Venlafaxine, as well as amitriptyline, were tried but these were ineffective and caused side effects. According to the patient she been prescribed Xanax 0 mg b.i.d. p.r.n. which she always took to sleep, and sometimes additional tablet, but no more than 2 tablets a day. At the time of admission the patient source feelings of loss of interest in things, fatigue, low self-esteem, difficulty concentrating, anxious mood, restlessness, irritability, muscle tension, pineda insomnia - will take several hours to go to sleep, finally going to sleep at 3:30 a.m. in the morning, then waking up at 6:30 a.m., and then getting up for the day. Patient says she has never really required much sleep, although she denies any symptoms of gricelda, hypomania, or psychosis. Treatment Plan Utilization/Treatment Supportive/cognitive therapy utilized. Continue current medications per by did Education on many subjects include his safety, nutrition, overall general health, coping skills, grief, behavioral activation, self-care, communication, organization, pain relief, among others. Response to [place]/Treatment Course Summary Patient was started on Remeron 7.5 mg on 10/17/2023. On 10/31/2023 Remeron wa s discontinued and the patient was started on trazodone 25 mg q.h.s.. On 11/07/2023 trazodone was increased to 75 mg Q HS, and increased again to 100 mg q.h.s. on 11/21/2023. She was also started on Cymbalta 20 mg q.a.m.. Patient was discharged to the program as she simply stopped coming to group and would not answer her phone. She did report sleeping better prior to discharge was consistently sleeping 5-6 hours per night versus 3 hours per night when the patient was admitted. Anxiety may have been somewhat improved.. Unable to ascertain mental status patient was not seen on discharge, however, staff said she sounded somewhat depressed and anxious on 12/03/2023 when she was last spoken to on the phone. Aftercare Plan Continue trazodone 100 mg q.h.s. and Cymbalta 20 mg q.a.m.. Her PCP will maintain her scripts. Follow-up with PCP p.r.n.. Continue all activities as tolerated. Patient continues to live at home with her daughter. Discharge Diagnosis F 41.9
--- NOTE | 2023-12-19 13:06 | PC.NURSE ---
Patient was abruptly discharged today.
== END 2023-12-19 13:25 | disposition home or self-care (01) ==
LOC: CHSSENLIFE 11:30
PROVIDERS: PCP Family Medicine; Visit Provider Psychiatry & Neurology Psychiatry
DX: F41.9 Anxiety disorder, unspecified (principal)
CPT/HCPCS: 81001; 87077; 87086; 87088; 87186; 90792; 90853; 99214; G0463

== ENCOUNTER 2023-12-25 09:24 | Outpatient (CLI) | payer MEDICARE, SELFPAY ==
[2023-12-25 10:24] LABS: Alanine Aminotransferase 28 U/L (14-59); Albumin Level 3.4 g/dL (3.4-5.0); Alkaline Phosphatase 65 U/L (46-116); Anion Gap 7 mmol/L (4-12); Aspartate Amino Transferase 26 U/L (15-37); Bilirubin,Total 0.7 mg/dL (0.00-1.00); Blood Urea Nitrogen 13 mg/dL (7-18); Carbon Dioxide 27 mmol/L (21-32); Chloride 97 mmol/L (98-108); Estimated Glomerular Filt Rate > 60; Glucose 104 mg/dL (70-99); Osmolality Calculated 272 mOsm/kg (285-295); Potassium 4.5 mmol/L (3.5-5.1); Sodium 131 mmol/L (136-145); Total Protein 6.8 g/dL (6.4-8.2)
== END 2023-12-25 09:25 | disposition home or self-care (01) ==
LOC: CHSLAB 09:25
PROVIDERS: PCP Family Medicine; Visit Provider Family Medicine
DX: E87.1 Hypo-osmolality and hyponatremia (principal)
CPT/HCPCS: 36415; 80053

== ENCOUNTER 2024-01-17 09:48 | Outpatient (CLI) | payer MEDICARE, SELFPAY ==
[2024-01-17 10:46] LABS: Alanine Aminotransferase 27 U/L (14-59); Albumin Level 3.5 g/dL (3.4-5.0); Alkaline Phosphatase 83 U/L (46-116); Anion Gap 8 mmol/L (4-12); Aspartate Amino Transferase 24 U/L (15-37); Bilirubin,Total 0.4 mg/dL (0.00-1.00); Blood Urea Nitrogen 11 mg/dL (7-18); Calcium 8.9 mg/dL (8.5-10.1); Carbon Dioxide 24 mmol/L (21-32); Chloride 101 mmol/L (98-108); Estimated Glomerular Filt Rate > 60; Glucose 108 mg/dL (70-99); Osmolality Calculated 276 mOsm/kg (285-295); Potassium 4.1 mmol/L (3.5-5.1); Sodium 133 mmol/L (136-145); Total Protein 6.7 g/dL (6.4-8.2)
== END 2024-01-17 09:49 | disposition home or self-care (01) ==
LOC: CHSLAB 09:50
PROVIDERS: PCP Family Medicine; Visit Provider Family Medicine
DX: E87.1 Hypo-osmolality and hyponatremia (principal)
CPT/HCPCS: 36415; 80053

== ENCOUNTER 2024-02-03 12:04 | Outpatient (NON) | payer MEDICARE, SELFPAY ==
[2024-02-03 12:35] LABS: Add Urine Microscopic? YES; Appearance Urine Clear (Clear); Bilirubin Urine Negative (Negative); Blood Urine Negative (Negative); Color Urine Light Yellow (Yellow); Glucose Urine UA Negative (Negative); Ketones Urine Negative (Negative); Leukocyte Esterase Ur 1+ LEU/UL (Negative); Nitrate Urine Negative (Negative); Protein Urine Negative (Negative); Urobilinogen Urine 0.2 mg/dL (0.2-1.0)
[2024-02-03 12:41] LABS: Bacteria Urine 1+ /hpf; RBC Urine 0-2 /hpf (0-2); Renal Epithelial Cells Urine Few /hpf; Squamous Epithelial Cell Urine Few /hpf (Few)
== END 2024-02-03 12:05 | disposition home or self-care (01) ==
LOC: CHSLAB 12:09
PROVIDERS: PCP Nurse Practitioner Family; Visit Provider Nurse Practitioner Family
DX: Z87.898 Personal history of other specified conditions (principal); R82.90 Unspecified abnormal findings in urine
CPT/HCPCS: 81001; 87077; 87086; 87088; 87186

== ENCOUNTER 2024-02-10 15:01 | Outpatient (NON) | payer MEDICARE, SELFPAY ==
[2024-02-10 15:49] LABS: Hematocrit 35.2 % (35.0-42.0); Hemoglobin 11.6 g/dL (11.7-13.8); Mean Corpuscular Hemoglobin 29.6 pg (27.0-31.0); Mean Corpuscular Volume 89.8 fL (78.0-102.0); Mean Platelet Volume 11.2 fl (9.2-11.8); Platelet Count Result 215 K/mm3 (150-420); Red Blood Count 3.92 M/mm3 (4.20-5.40); Red Cell Distribution Width 13.5 % (11.6-14.4); White Blood Count 6.8 K/mm3 (4.8-10.8)
[2024-02-10 15:59] LABS: Alanine Aminotransferase 20 U/L (14-59); Albumin Level 3.3 g/dL (3.4-5.0); Alkaline Phosphatase 83 U/L (46-116); Anion Gap 9 mmol/L (4-12); Aspartate Amino Transferase 15 U/L (15-37); Bilirubin,Total 0.4 mg/dL (0.00-1.00); Blood Urea Nitrogen 10 mg/dL (7-18); Calcium 8.7 mg/dL (8.5-10.1); Carbon Dioxide 27 mmol/L (21-32); Chloride 99 mmol/L (98-108); Estimated Glomerular Filt Rate > 60; Glucose 116 mg/dL (70-99); Iron 27 ug/dL (50-170); Magnesium 1.6 mg/dL (1.8-2.4); Osmolality Calculated 280 mOsm/kg (285-295); Potassium 4.3 mmol/L (3.5-5.1); Sodium 135 mmol/L (136-145); Total Protein 6.4 g/dL (6.4-8.2)
[2024-02-10 16:17] LABS: Band Neutrophils Percent 1 % (0-6); Eosinophils Absolute Manual 0.13 K/mm3 (0.02-0.50); Eosinophils Percent Manual 2 % (1-6); Lymphocytes Absolute Manual 2.17 K/mm3 (1.1-4.5); Lymphocytes Percent Manual 32 % (18-44); Monocytes Absolute Manual 1.02 K/mm3 (0.1-0.90); Monocytes Percent Manual 15 % (3-9); Neutrophils Absolute Manual 3.46 K/mm3 (1.7-7.2); Neutrophils Percent Manual 50 % (46-73); Platelet Estimate Adequate (Adequate); Total Cells Counted 100
== END 2024-02-10 15:02 | disposition home or self-care (01) ==
LOC: CHSLAB 15:03
PROVIDERS: PCP Nurse Practitioner Family; Visit Provider Nurse Practitioner Family
DX: M79.642 Pain in left hand (principal); E87.1 Hypo-osmolality and hyponatremia; R53.1 Weakness
CPT/HCPCS: 36415; 80053; 83540; 83735; 85025

== ENCOUNTER 2024-02-20 15:39 | Emergency (ER) | payer MEDICARE, SELFPAY ==
--- NOTE | ~2024-02-20 | XR_ITS ---
EXAMINATION: XR chest 1V portable DATE: 02/20/2024 16:18 INDICATION: Weakness. TECHNIQUE: A single frontal view of the chest was obtained on 2 radiographs. COMPARISON: Chest single view 12/19/23, chest CT 05/27/2023 FINDINGS: There is no pneumonia, pleural effusion, or pneumothorax. The heart size is normal. IMPRESSION: 1. No acute cardiopulmonary disease. Reviewed, dictated and finalized at location A.
[2024-02-20 15:39] VITALS: BP 138/67; PULSE 81; RESP 18; TEMP 36.4; O2SAT 96
[2024-02-20 16:14] LABS: Add Urine Microscopic? YES; Appearance Urine Clear (Clear); Bilirubin Urine Negative (Negative); Blood Urine Negative (Negative); Color Urine Light Yellow (Yellow); Glucose Urine UA Negative (Negative); Ketones Urine Negative (Negative); Leukocyte Esterase Ur 1+ LEU/UL (Negative); Nitrate Urine Negative (Negative); Protein Urine Negative (Negative); Urobilinogen Urine 0.2 mg/dL (0.2-1.0); pH Urine 6.5 (5.0-8.0)
[2024-02-20 16:14] LABS: Basophils Absolute Auto 0.08 K/mm3 (0.00-0.10); Basophils Percent Auto 1.4 % (0.0-1.0); Eosinophils Absolute Auto 0.47 K/mm3 (0.02-0.50); Eosinophils Percent Auto 8.3 % (1.0-6.0); Hematocrit 34.1 % (35.0-42.0); Hemoglobin 11.5 g/dL (11.7-13.8); Immature Granulocyte Absolute 0.01 K/mm3 (0.00-0.00); Immature Granulocyte Percent A 0.2 % (0.0-0.0); Lymphocytes Absolute Auto 1.98 K/mm3 (1.10-4.50); Lymphocytes Percent Auto 34.9 % (18.0-42.0); Mean Corpuscular HGB Conc 33.7 g/dL (32-36); Mean Corpuscular Hemoglobin 29.6 pg (27.0-31.0); Mean Corpuscular Volume 87.9 fL (78.0-102.0); Mean Platelet Volume 11.2 fl (9.2-11.8); Monocytes Absolute Auto 0.85 K/mm3 (0.10-0.90); Neutrophils Absolute Auto 2.28 K/mm3 (1.70-7.20); Neutrophils Percent Auto 40.2 % (50.0-70.0); Platelet Count Result 236 K/mm3 (150-420); Red Blood Count 3.88 M/mm3 (4.20-5.40); Red Cell Distribution Width 13.1 % (11.6-14.4); White Blood Count 5.7 K/mm3 (4.8-10.8)
[2024-02-20 16:28] LABS: Alanine Aminotransferase 16 U/L (14-59); Albumin Level 2.9 g/dL (3.4-5.0); Alkaline Phosphatase 86 U/L (46-116); Anion Gap 7 mmol/L (4-12); Aspartate Amino Transferase 17 U/L (15-37); Bilirubin,Total 0.3 mg/dL (0.00-1.00); Blood Urea Nitrogen 10 mg/dL (7-18); Calcium 8.4 mg/dL (8.5-10.1); Carbon Dioxide 27 mmol/L (21-32); Chloride 96 mmol/L (98-108); Estimated CRCL calculation 42 ml/min; Estimated Glomerular Filt Rate > 60; Glucose 116 mg/dL (70-99); Osmolality Calculated 270 mOsm/kg (285-295); Potassium 4.2 mmol/L (3.5-5.1); Sodium 130 mmol/L (136-145); Total Protein 6.6 g/dL (6.4-8.2)
[2024-02-20 16:33] LABS: Lactic Acid Reflex 1.1 mmol/L (0.4-2.0)
[2024-02-20 16:36] LABS: Bacteria Urine Trace /hpf; RBC Urine None seen /hpf (0-2); Squamous Epithelial Cell Urine Few /hpf (Few); Transitional Epi Cells Urine Few /hpf
[2024-02-20] MEDS: SODIUM CHLORIDE 0.9% IV 500 ML 999 ML IV CONT (16:37)
--- NOTE | 2024-02-20 16:42 | ED.WEAKNESS ---
HPI - Weakness General Chief complaint: Weakness Stated complaint: uti symptoms Source: patient Mode of arrival: wheelchair Limitations: no limitations History of Present Illness HPI Narrative: this is a 83-year-old female presents with generalized weakness some with some some dysuria has a history of hyponatremia and follows with her primary. Patient called her primary but they were already closed and was told to come the emergency department. Patient otherwise no fever chills no chest pain no shortness of breaths no peripheral edema neurological deficits. There is no nausea vomiting no flank pain does have some mild dysuria without hematuria. Complaint: generalized weakness Onset (ago): week(s) Duration: constant Location: generalized Related Data Home Medications Medication Instructions Recorded Confirmed furosemide 20 mg tablet 20 mg PO DAILY 10/15/20 02/10/24 nitroglycerin 0.4 mg sublingual 0.4 mg sublingual Q5M PRN Chest 03/27/23 02/10/24 tablet Pain aspirin 81 mg tablet,delayed 81 mg PO DAILY 05/31/23 02/10/24 release Allergies Allergy/AdvReac Type Severity Reaction Status Date / Time amoxicillin Allergy Unknown Verified 02/10/24 14:20 prednisone AdvReac Dizziness Verified 02/10/24 14:20 Review of Systems Review of Systems: All systems reviewed & are unremarkable except as noted in HPI and below PMFSH Past Medical History Medical History Achilles tendon pain CAD (coronary artery disease) Depression DVT (deep venous thrombosis) Hip pain HTN (hypertension) IBS (irritable bowel syndrome) Left leg weakness Peripheral vascular disease Polio Post-polio syndrome Right foot pain Surgical History Surgical History H/O: hysterectomy History of surgery on lower extremity Left leg due to complications of polio Stented coronary artery Family History Family History Sibling Heart disease Father Heart disease Other Family history of arthritis Family history of mental disorder Hypertension Social History Social History Smoking status: Never smoker Second hand tobacco smoke exposure: No Alcohol intake: current Alcohol use details: very rarely Substance use: never Substance use type: does not use Do You Feel Safe in your Home?: Yes Lack of Transportation: No Lack of Food: Never True Current Housing: I Have Housing Concerned About Future Housing: No Difficulty Paying Gas/Electric Bills: YES Difficulty Paying for Meds: No Currently Unemployed: No Education: High School Diploma/GED Difficulty w/ Childcare or Family Care: No Living arrangements: with family Additional living arrangements comments: daughter Amelie lives with her Occupation/Education: retired Gender identity (if verbalized by the patient): Female Sexual Orientation (if Verbalized by the Patient): Straight or Heterosexual Spiritual care concerns: No Exam Const: General: no acute distress Nutritional Appearance: well nourished Orientation/consciousness: patient oriented x3 Limitations: no limitations HENMT: Head: normal to inspection Eyes: Conjunctivae: conjunctivae normal Neck: Neck: normal visual inspection Chest: Chest palpation & inspection: normal inspection of the chest Resp: Effort & Inspection: normal respiratory effort Auscultation: clear to auscultation bilaterally Cardio: Rate: regular rate Rhythm: regular rhythm GI: GI Palp: Yes Soft to palpation Auscultation: normal bowel sounds Urinary Catheter: Urinary Catheter: patent and draining Back/Spine/Pelvis: Back: no CVA tenderness Skin: General skin exam: normal color Rashes: no rashes Neuro: General: patient oriented x3, moves all extremities, no meningeal signs and no focal m
[2024-02-20 16:49] LABS: SARS-CoV-2 RNA PCR Negative (Negative)
[2024-02-20 16:50] LABS: Influenza A QL RT-PCR Negative (Negative); Influenza B QL RT-PCR Negative (Negative); RSV RNA, RT-PCR Negative (Negative)
[2024-02-20] MEDS: levoFLOXacin 500 MG TABLET PO (16:57)
[2024-02-20 17:04] VITALS: BP 140/70; PULSE 74; RESP 20; TEMP 36.8; O2SAT 98
--- NOTE | 2024-02-22 14:51 | PC.NURSE ---
Final urine culture report, Mixed genital sherry, no growth. No further action or treatment needed per ERP Dr. Huizar
== END 2024-02-20 17:04 | disposition home or self-care (01) ==
PROVIDERS: Emergency Provider Emergency Medicine; PCP Family Medicine
DX: E87.1 Hypo-osmolality and hyponatremia (principal); N39.0 Urinary tract infection, site not specified; I25.10 Atherosclerotic heart disease of native coronary artery without angina pectoris; I10 Essential (primary) hypertension; Z86.718 Personal history of other venous thrombosis and embolism; Z20.822 Contact with and (suspected) exposure to COVID-19
CPT/HCPCS: 36415; 71045; 80053; 81001; 83605; 85025; 87086; 87088; 87637; 99283; A9270; J7040

== ENCOUNTER 2024-02-27 11:34 | Outpatient (CLI) | payer MEDICARE, SELFPAY ==
[2024-02-27 13:23] LABS: Add Urine Microscopic? NO; Appearance Urine Clear (Clear); Bilirubin Urine Negative (Negative); Blood Urine Negative (Negative); Color Urine Light Yellow (Yellow); Glucose Urine UA Negative (Negative); Ketones Urine Negative (Negative); Leukocyte Esterase Ur Negative (Negative); Nitrate Urine Negative (Negative); Protein Urine Negative (Negative); Specific Grav Ur 1.015 (1.010-1.020); Urobilinogen Urine 0.2 mg/dL (0.2-1.0)
[2024-02-27 18:25] LABS: Alanine Aminotransferase 20 U/L (14-59); Albumin Level 3.4 g/dL (3.4-5.0); Alkaline Phosphatase 105 U/L (46-116); Anion Gap 8 mmol/L (4-12); Aspartate Amino Transferase 26 U/L (15-37); Bilirubin,Total 0.5 mg/dL (0.00-1.00); Blood Urea Nitrogen 13 mg/dL (7-18); Calcium 8.8 mg/dL (8.5-10.1); Carbon Dioxide 25 mmol/L (21-32); Chloride 95 mmol/L (98-108); Estimated Glomerular Filt Rate > 60; Glucose 96 mg/dL (70-99); Osmolality Calculated 266 mOsm/kg (285-295); Potassium 4.8 mmol/L (3.5-5.1); Sodium 128 mmol/L (136-145); Total Protein 6.6 g/dL (6.4-8.2)
== END 2024-02-27 11:35 | disposition home or self-care (01) ==
PROVIDERS: PCP Family Medicine; Visit Provider Family Medicine
DX: R30.0 Dysuria (principal); E87.1 Hypo-osmolality and hyponatremia
CPT/HCPCS: 36415; 80053; 81003

== ENCOUNTER 2024-03-31 11:48 | Outpatient (CLI) | payer MEDICARE, SELFPAY ==
[2024-03-31 12:05] LABS: Add Urine Microscopic? NO; Appearance Urine Clear (Clear); Bilirubin Urine Negative (Negative); Blood Urine Negative (Negative); Color Urine Light Yellow (Yellow); Glucose Urine UA Negative (Negative); Ketones Urine Negative (Negative); Leukocyte Esterase Ur Negative (Negative); Nitrate Urine Negative (Negative); Protein Urine Negative (Negative); Urobilinogen Urine 0.2 mg/dL (0.2-1.0); pH Urine 5.5 (5.0-8.0)
[2024-03-31 13:00] LABS: Alanine Aminotransferase 17 U/L (14-59); Albumin Level 3.3 g/dL (3.4-5.0); Alkaline Phosphatase 97 U/L (46-116); Anion Gap 7 mmol/L (4-12); Aspartate Amino Transferase 21 U/L (15-37); Bilirubin,Total 0.5 mg/dL (0.00-1.00); Blood Urea Nitrogen 10 mg/dL (7-18); Calcium 8.8 mg/dL (8.5-10.1); Carbon Dioxide 30 mmol/L (21-32); Chloride 106 mmol/L (98-108); Estimated Glomerular Filt Rate > 60; Ferritin 228 ng/mL (8-252); Glucose 110 mg/dL (70-99); Iron 73 ug/dL (50-170); Magnesium 2.2 mg/dL (1.8-2.4); Osmolality Calculated 296 mOsm/kg (285-295); Percent Iron Saturation 37 % (12-57); Potassium 4.7 mmol/L (3.5-5.1); Sodium 143 mmol/L (136-145); Total Protein 6.5 g/dL (6.4-8.2)
[2024-04-02 06:33] LABS: Vitamin D 25 Hydroxy 12 ng/mL (30-100)
== END 2024-03-31 11:49 | disposition home or self-care (01) ==
LOC: CHSLAB 11:50
PROVIDERS: PCP Nurse Practitioner Family; Visit Provider Nurse Practitioner Family
DX: G25.81 Restless legs syndrome (principal); N39.0 Urinary tract infection, site not specified; M25.50 Pain in unspecified joint; E87.1 Hypo-osmolality and hyponatremia; M79.642 Pain in left hand; Z79.899 Other long term (current) drug therapy
CPT/HCPCS: 36415; 80053; 81003; 82306; 82728; 83540; 83550; 83735

== ENCOUNTER 2024-05-05 07:41 | Outpatient (CLI) | payer MEDICARE, SELFPAY ==
--- NOTE | ~2024-05-05 | XR_ITS ---
XR shoulder LT min 2V Ordering provider: Agnieszka Gonzalez APRN History: . LT ARM PAIN X2MO . Comparison: None. FINDINGS: BONES: No acute fracture or dislocation. JOINT SPACES: The acromioclavicular joint is normal. The glenohumeral joint is normal. SOFT TISSUES: Normal. IMPRESSION: No acute osseous abnormality left shoulder. Reviewed, dictated and finalized at location A. R VEHICLE CLERK
--- NOTE | ~2024-05-05 | XR_ITS ---
XR_[id number]_CR Ordering provider: Agnieszka Gonzalez APRN History: . M79.602 - Pain in left arm X2MO . Comparison: None. FINDINGS: VERTEBRAL BODIES: Normal height and alignment. No visible fracture or subluxation. The dens is intact . DISK SPACES: Narrowing of the disc C4-C5 and C6-C7. Multilevel uncovertebral joint osteoarthritic iraida nges. Multilevel facet joint disease. PARASPINOUS SOFT TISSUES: No prevertebral soft tissue swelling. IMPRESSION: No acute osseous abnormality cervical spine. Multilevel degenerative disc disease, facet joint disease and uncovertebral joint osteoarthritic dubon ges. Reviewed, dictated and finalized at location A. PROFESSOR IMPRESSION: No acute osseous abnormality cervical spine. Multilevel degenerative disc disease, facet joint disease and uncovertebral dom nt osteoarthritic changes.
--- NOTE | ~2024-05-05 | US_ITS ---
EXAMINATION: US venous doppler UE DATE: 05/05/2024 08:19 INDICATION: Left upper limb pain. TECHNIQUE: Grayscale ultrasound images without and with compression and Doppler ultrasound images of the left upper extremity veins were obtained. COMPARISON: None. FINDINGS: The visualized portions of the left internal jugular vein, subclavian vein, axillary vein, brachial v eins, basilic vein, cephalic vein, radial vein, and ulnar vein are patent. IMPRESSION: 1. No deep venous thrombosis. Reviewed, dictated and finalized at location A. ICAL ATTENDANT
== END 2024-05-05 07:42 | disposition home or self-care (01) ==
LOC: CHSIMG 07:42
PROVIDERS: PCP Nurse Practitioner Family; Visit Provider Nurse Practitioner Family
DX: M79.602 Pain in left arm (principal); M50.30 Other cervical disc degeneration, unspecified cervical region
CPT/HCPCS: 72040; 73030; 93971

== ENCOUNTER 2024-06-05 14:26 | Outpatient (CLI) | payer MEDICARE, SELFPAY ==
[2024-06-05 14:51] LABS: Add Urine Microscopic? YES; Appearance Urine Clear (Clear); Bilirubin Urine Negative (Negative); Blood Urine Negative (Negative); Color Urine Light Yellow (Yellow); Glucose Urine UA Negative (Negative); Ketones Urine Negative (Negative); Leukocyte Esterase Ur Trace LEU/UL (Negative); Nitrate Urine Positive (Negative); Protein Urine Negative (Negative); Urobilinogen Urine 0.2 mg/dL (0.2-1.0)
[2024-06-05 15:05] LABS: Bacteria Urine 4+ /hpf; RBC Urine None seen /hpf (0-2); Squamous Epithelial Cell Urine Rare /hpf (Few); WBC Urine 31-50 /hpf (0-3)
[2024-06-05 15:28] LABS: Alanine Aminotransferase 18 U/L (14-59); Albumin Level 3.6 g/dL (3.4-5.0); Alkaline Phosphatase 103 U/L (46-116); Anion Gap 9 mmol/L (4-12); Aspartate Amino Transferase 18 U/L (15-37); Bilirubin,Total 0.5 mg/dL (0.00-1.00); Blood Urea Nitrogen 18 mg/dL (7-18); Calcium 9.6 mg/dL (8.5-10.1); Carbon Dioxide 26 mmol/L (21-32); Chloride 102 mmol/L (98-108); Estimated Glomerular Filt Rate > 60; Glucose 98 mg/dL (70-99); Magnesium 1.7 mg/dL (1.8-2.4); Osmolality Calculated 285 mOsm/kg (285-295); Potassium 4.6 mmol/L (3.5-5.1); Sodium 137 mmol/L (136-145)
--- OUTSIDE RECORDS SUMMARY | 2024-06-08 20:47 | XMS_ITS | Encounter Summary ---
Author Organization [facility] Address [facility]. [place], [place] [id number] [place] [id number] Care Team Providers Care Outdoor Illuminating Engineer Name Role Phone Jose A Lakhani DO Primary Care Provider [phone] Encounter Details Date Type Department Care Team (Latest Contact Info) Description 05/27/2023 Travel Social History Tobacco Use Types Packs/Day Years Used Date Smoking Tobacco: Never Smokeless Tobacco: Never [facility] Utilities Answer Date Recorded In the past 12 months has [employer], gas, oil, or water [employer] threatened to shut off services in your home? No 05/27/2023 Humiliation, Afraid, Rape, and Kick questionnair e Answer Date Recorded Within the last year, have y ou been afraid of your partner or ex-partner? No 05/27/2023 Within the last year, have y ou been humiliated or emotionally abused in other ways by your partner or ex-partner? No Within the last year, have y ou been kicked, hit, slapped, or otherwise physically hurt by your partner or ex-partner? No 05/27/2023 Within the last year, have y ou been raped or forced to have any kind of sexual activity by your partner or ex-partner? No 05/27/2023 Overall Financial Resource Strain (CARDIA) Answe r Date Recorded How hard is it for you to pa y for the very basics like food, housing, medical care, and heating? Somewhat hard 05/27/2023 Hunger Vital Sign Answer Date Recorded Within the past 12 months, y ou worried that your food would run out before you got the money to buy more. Never true 05/27/20 23 Within the past 12 months, t he food you bought just didn't last and you didn't have money to get more. Never true 05/27/2023 PRAPARE - Transportation Answer Date Re corded In the past 12 months, has l ack of transportation kept you from medical appointments or from getting medications? No 09/2022 In the past 12 months, has l ack of transportation kept you from meetings, work, or from getting things needed for daily living? No 05/27/2023 Housing Stability Vital Sign Answer Jose e Recorded In the last 12 months, was t here a time when you were not able to pay the mortgage or rent on time? No 05/27/2023 In the last 12 months, how many places have you lived? 1 05/27/2023 In the last 12 months, was t here a time when you did not have a steady place to sleep or slept in a prison (including now)? No 05/27/2023 Comments No Sex and Gender Information Value Date Recorded Sex Assigned at Not on file Legal Sex Female 8:54 PM CDT Gender Identity Not on file Sexual Orientation Not on file documented as of this encounter Functional Status * Question Answer Date of Assessment Author Status Do you have serious difficulty walking or climbing stairs? Yes 05/27/2023 1:00 PM Erendira Stearns RN Activ e * Question Answer Date of Assessment Author Status Do you have difficulty dressing or bathing? No 05/27/2023 1:00 PM Erendira Stearns RN A ctive Because of a physical, mental, or emotional condition, do you have difficulty doing errands alone such as visiting a doctor's office or shopping? Yes 05/27/2023 1:00 PM Erendira Stearns RN Active * Are you deaf or do you have serious difficulty hearing Answer Date of Assessment Author Status Yes 05/27/2023 1:00 PM Erendira Stearns RN Active * Are you blind or do you have serious difficulty seeing, even when wearing glasses? Answer Date of Assessment Author Status No 05/27/2023 1:00 PM Erendira Stearns RN Active * Do you have serious difficulty walking or climbing stairs? Answer Date of Assessment Author Status Yes 05/27/2023 1:00 PM Erendira Stearns RN Active * Do you have difficulty dressing or bathing? Answer Date of Assessment Author Status No 05/27/2023 1:00 PM Erendira Stearns RN Active * Because of a physical, mental, or emotional condition, do you have difficulty doing errands alone such as visiting a doctor's office or shopping? Answer Date of Assessment Author Status Yes 05/27/2023 1:00 PM Erendira Stearns R N Active documented as of this encounter Mental Status * Question Answer Entry Date Author Status Because of a physical, mental, or emotional condition, do you have serious difficulty concentrating, remembering, or making decisions? No 05/27/2023 1:00 PM Erendira Stearns RN A ctive * Because of a physical, mental, or emotional condition, do you have serious difficulty concentrating, remembering, or making decisions? Answer Entry Date Author Status No 05/27/2023 1:00 PM Erendira Stearns RN Active documented in this encounter Plan of Treatment Not on file documented as of this encounter Visit Diagnoses Not on filedocumented in this encounter Care Teams Outdoor Illuminating Engineer Relationship Specialty Start Date End Date Jose A Lakhani DO [address] [place] [address] PCP - General FAMILY PRACTICE 05/24/23 documented as of this encounter
--- OUTSIDE RECORDS SUMMARY | 2024-06-08 20:47 | XMS_ITS | Encounter Summary ---
Author Organization [facility] Address [facility] [place]. [employer] [place], [place] [address] [place] [address] Care Team Providers Care Sleeve Setter Lockstitch Name Role Phone Jose A Lakhani DO Primary Care Provider [phone] Encounter Details Date Type Department Care Team (Latest Contact Info) Description 02/26/2024 Travel Social History Tobacco Use Types Packs/Day Years Used Date Smoking Tobacco: Never Smokeless Tobacco: Never [facility] Utilities Answer Date Recorded In the past 12 months has [employer], gas, oil, or water [employer] threatened to shut off services in your [...] place to sleep or slept in a usp (including now)? No 05/27/2023 Comments No Sex and Gender Information Value Date Recorded Sex Assigned at Not on file Legal Sex Female 8:54 PM CDT Gender Identity Not on file Sexual Orientation Not on file documented as of this encounter Functional Status * Are you deaf or do you [...] 1:00 PM Erendira Stearns RN Active documented as of this encounter Mental Status * Because of a physical, mental, or emotional condition, do you have serious difficulty concentrating, remembering, or making decisions? Answer Entry Date Author Status No 05/27/2023 1:00 PM CROWD CONTROLLER Erendira Pagan, RN Active documented in this encounter Plan of Treatment Not on file documented as of this encounter Visit Diagnoses Not on filedocumented in this encounter Care Teams Sleeve Setter Lockstitch Relationship Specialty Start Date End Date Jose A Lakhani DO [address] [place] [address] PCP - General FAMILY PRACTICE 05/24/23 documented as of this encounter
--- OUTSIDE RECORDS SUMMARY | 2024-06-08 20:47 | XMS_ITS | Encounter Summary ---
Author Organization [facility] Address [address] [place] [address]. [place], [place] [id number] [place] [address] Care Team Providers Care Semiconductor Bonder Name Role Phone Unavailable Primary Care Provider Unavailabl e Encounter Details Date Type Department Care Team (Late st Contact Info) Description 01/28/2014 Abstract [facility] [address] [place] [address] Luis Diaz MD [address] [place] [address] Social History Tobacco Use Types Packs/Day Years Used Date Smoking Tobacco: Never Assessed Comments Unknown Sex and Gender Information Value Date Recorded Sex Assigned at Not on file Legal Sex Female 8:54 PM CDT Gender Identity Not on file Sexual Orientation Not on file documented as of this encounter Plan of Treatment Not on file documented as of this encounter Visit Diagnoses Diagnosis Generalized muscle weakness Muscle weakness (generalized) documented in this encounter
--- OUTSIDE RECORDS SUMMARY | 2024-06-08 20:47 | XMS_ITS | Encounter Summary ---
Author Organization [facility] Address [address] [place] [address]. [place], [place] [id number] [place] [address] Care Team Providers Care Ranch Hand Supervisor Name Role Phone Unavailable Primary Care Provider Unavailabl e Encounter Details Date Type Department Care Team (Late st Contact Info) Description 03/17/[address] [facility] Diagnostic Imaging [address] [place] [address] Luis Diaz MD [address] [place] [address] Social History Tobacco Use Types [...] as of this encounter Visit Diagnoses Diagnosis Late effects of acute poliomyelitis documented in this encounter
--- OUTSIDE RECORDS SUMMARY | 2024-06-08 20:47 | XMS_ITS | Encounter Summary ---
Author Organization [facility] Address [address] [place] [address]. [place], [place] [address] [place] [address] Care Team Providers Care Ground Source Heat Pump Technician Name Role Phone Sixto Lund MD Primary Care Provider [phone] Reason for Visit * Reason Comments Edema * Physical Therapy (Routine) - Closed Specialty Diagnoses / Procedures Referred By Contac t Referred To Contact PHYSICAL THERAPY / [facility] Physical Therapy Diagnoses Lymphedema Procedures Jose A Frank, DO [address] [place] [address] Phone: tel: fax: Aelah Coy, PT [address] [place] [address] Phone: tel: fax: Referral ID Status Reason Start Date Expiration Date V isits Requested Visits Authorized [id number] Closed Physical Therapy 04/23/2023 04/23/2024 60 60 Encounter Details Date Type Department Care Team (Latest Contact Info) Description 04/23/2023 8:20 AM CDT - 04/23/2023 11:59 PM T Hospital Encounter [facility] [address] [place] [address] Aleah Coy, PT [address] [place] [address] Edema Discharge Disposition: Home or Self Care (Routine Discharge) Social History Tobacco Use Types Packs/Day Years Used Date Smoking Tobacco: Never Smokeless Tobacco: Never Comments No Sex and Gender Information Value Date Recorded Sex Assigned at Not on file Legal Sex Female 8:54 PM CDT Gender Identity Not on file Sexual Orientation Not on file documented as of this encounter Functional Status * RETIRED Are you deaf or do you have serious difficulty hearing Answer Date of Assessment Author Status No 08/31/2021 2:55 PM MARBLE INSTALLATION HELPER Activ e * RETIRED Are you blind or do you have serious difficulty seeing, even when wearing glasses? Answer Date of Assessment Author Status No 08/31/2021 2:55 PM MARBLE INSTALLATION HELPER Activ e * Do you have serious difficulty walking or climbing stairs? Answer Date of Assessment Author Status Yes 08/31/2021 2:55 PM An Bhatti RN Active * Do you have difficulty dressing or bathing? Answer Date of Assessment Author Status Yes 08/31/2021 2:55 PM An Bhatti RN Active * Because of a physical, mental, or emotional condition, do you have difficulty doing errands alone such as visiting a doctor's office or shopping? Answer Date of Assessment Author Status No 08/31/2021 2:55 PM An Bhatti RN Active documented as of this encounter Mental Status * Because of a physical, mental, or emotional condition, do you have serious difficulty concentrating, remembering, or making decisions? Answer Entry Date Author Status No 08/31/2021 2:55 PM An Bhatti RN Active documented in this encounter Medications at Time of Discharge aspirin EC (ASPIRIN EC) 81 MG tablet Take 1 tablet (81 mg total) by mouth daily. furosemide 20 MG tablet Take by mouth daily. 05/01/2021 rosuvastatin 10 MG tablet Take 1 tablet (10 mg total) by mouth nightly at bedtime. 08/18/2021 albuterol sulfate HFA 108 (90 Base) MCG/ACT inhaler Inhale 2 puffs into the lungs 4 (four) times daily. 03/24/2023 07/26/2023 ALPRAZolam 1 MG tablet nightly at bedtime. 07/04/2021 07/26/2023 benazepril 10 MG tablet Take by mouth nightly at bedtime. 08/23/2021 05/30/2023 lisinopril 20 MG tablet Take 1 tablet (20 mg total) by mouth daily. 30 tablet 09/03/2021 07/26/2023 nitroglycerin (NITROSTAT) 0.[address] 1 tablet (0.4 mg total) under the tongue. 02/01/2023 02/01/2024 warfarin 3 MG tablet 07/21/2021 07/26/2023 documented as of this encounter Progress Notes * Aleah Coy, PT - 04/23/2023 8:30 AM CDT PHYSICAL THERAPY OUTPATIENT INITIAL EVALUATION Time In: 932 Time Out: 1030 Total Time: 57' Date: 04/23/23 Name: Linda Garza : 1940 Past Medical History: Diagnosis Date CAD (coronary artery disease) COVID-19 01/2021 DVT (deep venous thrombosis) (CMS/HCC) left upper extremity HTN (hypertension) Mild aortic stenosis Non-rheumatic mitral regurgitation PAD (peripheral artery disease) (CMS/HCC) Polio Past Surgical History: Procedure Laterality Date CARDIAC STENTS VASCULAR SURGERY iliac Subjective: Diagnosis: LLE Secondary Lymphedema Referring Physician: Dr. Lakhani Onset Date: Chronic Mechanism Of Injury: DVT Prior Treatment For Diagnosis: MLD and education in wrapping Return to MD: As needed Pt presents with order for lymphedema therapy of LLE. Pt reports she has received lympehdema therapy in the past. She consistently performs self MLD and wraps her lower leg, until recently. States she had a fall approx one month ago and she stopped performing MLD because of her B hands hurting. Pt then proceeds to report her biggest concern is her inner thighs and vaginal edema. Pt admits to not informing PCP of this and states she has seen a specialist for this in the past but they did not give her any answers. Pt admits to being concerned of her weight, only eating once per day as she does not want to gain weight back. Pt perseverates on her body weight and vaginal edema, with less concern of her LLE lymphedema. Objective: PT notes B 2+ pitting edema in B malleoli. Pt admits to cutting her Lasix in half, not taking her recommended dosage. Signs and symptoms of current edema is congruent to cardiac edema. Education Performed: PT educated pt on performing MLD and begin wrapping her LLE again for continued management of lymphedema. PT unable to assist patient with pelvic floor complaints and recommends patient return to her PCP regarding this. Pt may benefit from pelvic floor therapy for these. Treatment Performed: Evaluation and Education performed this date. Assessment Assessment/Impressions: Linda Garza is a 82-year-old female who presents with a primary complaint of pelvic floor and inner thigh edema,despite being referred for her LLE lymphedema. PT has educated and encouraged patient to return to her PCP regarding her current symptoms and that she may benefit from further testing and pelvic floor therapy. Personal Factors/Co-Morbidities Affecting Care: 3-4+ Examination of Body Systems: Low (1-2) Clinical Presentation of Patient: Stable Uncomplicated Eval Complexity: Low PLAN: Pt to return to PCP regarding complaints. Pt is to continue with self MLD and wrapping. THE PROVIDER, I AM IN AGREEMENT WITH THE STATED THERAPY PLAN OF CARE. Provider Signature: Date: In signing this document, provider certifies that prescribed rehabilitation is a medical necessity. Date: 04/24/23 Patient Name: Linda Garza Patient : 1940 Patient APT at [address] [address] documented in this encounter Plan of Treatment Not on file documented as of this encounter Visit Diagnoses Diagnosis Lymphedema- Primary Other lymphedema documented in this encounter Care Teams Ground Source Heat Pump Technician Relationship Specialty Start Date End Date Sixto Lund MD [address] [place] [address] PCP - General INTERNAL MEDICINE 09/01/21 05/23/23 documented as of this encounter
--- OUTSIDE RECORDS SUMMARY | 2024-06-08 20:47 | XMS_ITS | Encounter Summary ---
Author Organization [facility] Address [address] [place] [address]. [place], [place] [address] [place] [address] Care Team Providers Care Solar Development Engineer Name Role Phone Unavailable Primary Care Provider Unavailabl e Encounter Details Date Type Department Care Team (Late st Contact Info) Description 05/07/[address] [place] [facility] [address] [facility] [place] [address] Ramon Sandoval MD [address] [place] [address] Social History Tobacco Use Types Packs/Day Years Used Date Smoking Tobacco: Never Assessed Comments Unknown Sex and Gender Information Value Date Recorded Sex Assigned at Not on file Legal Sex Female 8:54 PM CDT Gender Identity Not on file Sexual Orientation Not on file documented as of this encounter Plan of Treatment Not on file documented as of this encounter Visit Diagnoses Diagnosis Cervicalgia documented in this encounter
--- OUTSIDE RECORDS SUMMARY | 2024-06-08 20:47 | XMS_ITS | Encounter Summary ---
Author Organization [facility] Address [address] [place] [address]. [place] [address] [place] [address] Care Team Providers Care Manager Development Name Role Phone Jose A Lakhani DO Primary Care Provider [phone] Encounter Details Date Type Department Care Team (Late st Contact Info) Description 02/26/2024 10:42 AM CDT - 02/26/2024 11:59 PM [facility] Hospital Encounter [facility] [address] [place] [address] Karmen Ramirez, [facility] [address] [place] [address] Discharge Disposition: Home or Self Care (Routine Discharge) Social History Tobacco Use Types Packs/Day Years Used Date Smoking Tobacco: Never Smokeless Tobacco: Never [facility] Utilities Answer Date Recorded In the past 12 months has health system [employer], gas, oil, or water [employer] threatened to shut off services in your [...] place to sleep or slept in a snf (including now)? No 05/27/2023 Comments No Sex [...] Stearns RN Active documented in this encounter Medications at Time of Discharge ALPRAZolam (XANAX) 0.25 MG tablet TAKE 1/2 TABLET BY MOUTH AT BEDTIME NEEDED FOR SLEEP 07/05/2023 apixaban (ELIQUIS) 5 MG tablet Take 1 tablet (5 mg total) by mouth 2 (two) times daily. 60 tablet 1 05/28/2023 aspirin EC (ASPIRIN EC) 81 MG tablet Take 1 tablet (81 mg total) by mouth daily. benazepril (LOTENSIN) 10 MG tablet Take 1 tablet (10 mg total) by mouth daily. 04/25/2023 furosemide 20 MG tablet Take by mouth daily. 05/01/2021 potassium chloride CR (K-TAB) 20 MEQ tablet Take 1 tablet (20 mEq total) by mouth daily. 06/07/2023 rosuvastatin 10 MG tablet Take 1 tablet (10 mg total) by mouth nightly at bedtime. 08/18/2021 documented as of this encounter Progress Notes * Jannet Antunez RN - 02/26/2024 11:00 AM CDTEncounter addended by: Jannet Antunez RN on: 02/26/2024 1:45 PM Actions taken: MAR administration accepted * Rachel You - 02/26/2024 11:00 AM CDTEncounter addended by: Rachel You on: 02/27/2024 1:06 PM Actions taken: Charge Capture section accepted documented in this encounter Plan of Treatment Not on file documented as of this encounter Visit Diagnoses Diagnosis Pressure ulcer of left buttock, stage 2 ([facility]/HCC HHS/HCC)- Primary Pressure ulcer, buttock documented in this encounter Administered Medications Inactive Administered Medications - up to 3 most recent administrations Medication Order MAR Action Action Date Dose Rate Site lidocaine 2 % URO-JET jelly Topical, Once, 1 dose, On Sat02/26/24 at 1300Indications:Pressure ulcer of left buttock, stage 2 ([facility]/HCC HHS/HCC) Given 02/26/2024 11:15 AM CDT documented in this encounter Care Teams Manager Development Relationship Specialty Start Date End Date Jose A Lakhani DO [address] [place] [address] PCP - General FAMILY PRACTICE 05/24/23 documented as of this encounter
--- OUTSIDE RECORDS SUMMARY | 2024-06-08 20:47 | XMS_ITS | Encounter Summary ---
Author Organization [facility] Address [facility]. [place], [place] [address] [place] [address] Care Team Providers Care Manager Medical Writing Name Role Phone Jose A Lakhani DO Primary Care Provider [phone] Encounter Details Date Type Department Care Team (Latest Contact Info) Description 03/18/2024 Travel Social History Tobacco Use Types Packs/Day Years Used Date Smoking Tobacco: Never Smokeless Tobacco: Never [facility] Utilities Answer Date Recorded In the past 12 months has [employer], gas, oil, or water [employer] threatened to shut off services in your [...] place to sleep or slept in a group home (including now)? No 05/27/2023 Comments No Sex [...] Date Author Status No 05/27/2023 1:00 PM MANAGER IMMUNOLOGY Erendira Pagan, RN Active documented in this encounter Plan of Treatment Not on file documented as of this encounter Visit Diagnoses Not on filedocumented in this encounter Care Teams Manager Medical Writing Relationship Specialty Start Date End Date Jose A Lakhani DO [address] [place] [address] PCP - General FAMILY PRACTICE 05/24/23 documented as of this encounter
--- OUTSIDE RECORDS SUMMARY | 2024-06-08 20:47 | XMS_ITS | Encounter Summary ---
Author Organization [facility] Address [facility] [place] [address] [place] [address] Care Team Providers Care Title I Paraprofessional Name Role Phone None, Provider Primary Care Provider Sixto Reeves MD Primary Care Provider Jose A Lakhani DO Primary Care Provider [phone] Encounter Details Date Type Department Care Team (Late st Contact Info) Description 11/29/2018 Abstract [facility] [address] [place] [address] , Generic Conversion, Social History Tobacco Use Types Packs/Day Years [...] Diagnoses Not on filedocumented in this encounter Additional Health Concerns Infection Onset Date Last Indicated Resolved Time COVID-19 Rule Out 08/31/2021 08/31/2021 09/01/2021 7:49 PM SAFEMAKER documented as of this encounter Care Teams Title I Paraprofessional Relationship Specialty Start Date End Date None, ProviderMD PCP - General 08/31/21 08/31/21 Sixto Lund MD [address] [place] [id number] PCP - General INTERNAL MEDICINE 09/01/21 05/23/23 Jose A Lakhani DO [address] [place] [address] PCP - General FAMILY PRACTICE 05/24/23 documented as of this encounter
--- OUTSIDE RECORDS SUMMARY | 2024-06-08 20:47 | XMS_ITS | Encounter Summary ---
Author Organization [facility] Address [facility]. [place], [place] [address] [place] [address] Care Team Providers Care Hospital Chief Financial Officer Name Role Phone Jose A Lakhani DO Primary Care Provider [phone] Encounter Details Date Type Department Care Team (Latest Contact Info) Description 07/26/2023 Travel Social History Tobacco Use Types Packs/Day Years Used Date Smoking Tobacco: Never Smokeless Tobacco: Never [facility] Utilities Answer Date Recorded In the past 12 months has [employer], gas, oil, or water [employer] threatened to shut off services in your [...] place to sleep or slept in a fci (including now)? No 05/27/2023 Comments No Sex [...] Date Author Status No 05/27/2023 1:00 PM SAND PLANT ATTENDANT Erendira Pagan, RN Active documented in this encounter Plan of Treatment Not on file documented as of this encounter Visit Diagnoses Not on filedocumented in this encounter Care Teams Hospital Chief Financial Officer Relationship Specialty Start Date End Date Jose A Lakhani DO [address] [place] [address] PCP - General FAMILY PRACTICE 05/24/23 documented as of this encounter
--- OUTSIDE RECORDS SUMMARY | 2024-06-08 20:47 | XMS_ITS | Encounter Summary ---
Author Organization [facility] Address [address] [place] [address]. [place], [place] [address] [place] [address] Care Team Providers Care Dance Choreographer Name Role Phone Unavailable Primary Care Provider Unavailabl e Encounter Details Date Type Department Care Team (Late st Contact Info) Description 07/23/1994 Abstract [facility] [address] [place] [address] , Generic Conversion, Social History Tobacco Use [...]
--- OUTSIDE RECORDS SUMMARY | 2024-06-08 20:47 | XMS_ITS | Encounter Summary ---
Author Organization [facility] Address [address] [place] [address]. [place] [address] [place] [address] Care Team Providers Care Lime Kiln Worker Name Role Phone Jose A Lakhani DO Primary Care Provider [phone] Encounter Details Date Type Department Care Team (Late st Contact Info) Description 03/18/2024 10:00 AM CDT - 03/18/2024 11:59 PM [facility] Hospital Encounter [facility] [address] [place] [address] Karmen Ramirez, [facility] [address] [place] [address] Discharge Disposition: Home or Self Care (Routine Discharge) Social History Tobacco Use Types Packs/Day Years Used Date Smoking Tobacco: Never Smokeless Tobacco: Never [facility] Utilities Answer Date Recorded In the past 12 months has [facility] [employer], gas, oil, or water [employer] threatened to shut off services in your [...] place to sleep or slept in a assisted (including now)? No 05/27/2023 Comments No Sex [...] bedtime. 08/18/2021 documented as of this encounter Plan of Treatment Not on file documented as of this encounter Visit Diagnoses Not on filedocumented in this encounter Care Teams Lime Kiln Worker Relationship Specialty Start Date End Date Jose A Lakhani DO [address] [place] [address] PCP - General FAMILY PRACTICE 05/24/23 documented as of this encounter
--- OUTSIDE RECORDS SUMMARY | 2024-06-08 20:47 | XMS_ITS | Encounter Summary ---
Author Organization [facility] Address [facility] [place] [address] [place] [address] Care Team Providers Care Tetryl Nitrator Operator Name Role Phone Unavailable Primary Care Provider Unavailabl e Encounter Details Date Type Department Care Team (Late st Contact Info) Description 01/28/2012 Abstract [facility] [address] [place] [address] Kamaljit Mukherjee MD [address] [place] [address] Social History Tobacco Use Types Packs/Day Years Used Date Smoking Tobacco: Never Assessed Comments Unknown Sex and Gender Information Value Date Recorded Sex Assigned at Not on file Legal Sex Female 8:54 PM CDT Gender Identity Not on file Sexual Orientation Not on file documented as of this encounter Plan of Treatment Not on file documented as of this encounter Visit Diagnoses Diagnosis Pain in joint, ankle and foot documented in this encounter
--- OUTSIDE RECORDS SUMMARY | 2024-06-08 20:47 | XMS_ITS | Encounter Summary ---
Author Organization [facility] Address [address] [place] [address]. [place], [place] [address] [place] [address] Care Team Providers Care It Risk Advisor Name Role Phone Unavailable Primary Care Provider Unavailabl e Encounter Details Date Type Department Care Team (Late st Contact Info) Description 12/24/2007 Abstract [facility] [address] [facility] [place] [address] Mando Javier, DO Social History Tobacco Use Types Packs/Day Years [...]
--- OUTSIDE RECORDS SUMMARY | 2024-06-08 20:47 | XMS_ITS | Encounter Summary ---
Author Organization [facility] Address [facility]. [place], [place] [id number] [place] [id number] Care Team Providers Care Shadow Graph Weight Operator Name Role Phone Jose A Tanner DO Primary Care Provider [phone] Reason for Referral * (Routine) - New Request Specialty Diagnoses / Procedures Referred By Contac t Referred To Contact Diagnoses Syncope, unspecified syncope type Procedures Event Recorder (ECG) Up To 30 Days Complete (Performed at [facility]) Julio Cesar Curry MD Phone: tel: fax: Referral ID Status Reason Start Date Expiration Date V isits Requested Visits Authorized [id number] New Request 05/30/2023 06/29/2024 1 1 L FILE CLERK * (Routine) - Closed Specialty Diagnoses / Procedures Referred By Contac t Referred To Contact Procedures OT aleksandral and Paras Mccarthy MD Phone: tel: fax: Referral ID Status Reason Start Date Expiration Date Visits Re quested Visits Authorized [id number] Closed 05/28/2023 05/28/2024 1 1 L FILE CLERK * (Routine) - Closed Specialty Diagnoses / Procedures Referred By Contac t Referred To Contact Procedures PT pranav and Paras Mccarthy MD Phone: tel: fax: Referral ID Status Reason Start Date Expiration Date Visits Re quested Visits Authorized [id number] Closed 05/28/2023 05/28/2024 1 1 L FILE CLERK * Imaging (Urgent) - Closed Specialty Diagnoses / Procedures Referred By Contac t Referred To Contact RADIOLOGY Procedures CT ABD+PEL WO CON Paras Sandoval MD Phone: tel: fax: Referral ID Status Reason Start Date Expiration Date Visits Re quested Visits Authorized [id number] Closed 05/28/2023 05/28/2024 1 1 L FILE CLERK * Imaging (Urgent) - Closed Specialty Diagnoses / Procedures Referred By Contac t Referred To Contact RADIOLOGY Procedures USE ECHOCARDIOGRAM Julio Cesar Curry MD Phone: tel: fax: Referral ID Status Reason Start Date Expiration Date Visits Re quested Visits Authorized [id number] Closed 05/27/2023 05/27/2024 1 1 L FILE CLERK Reason for Visit * Auth/Cert (Routine) Specialty Diagnoses / Procedures Referred By Contac t Referred To Contact Diagnoses ELEVATED INR Procedures NONE Julio Cesar Curry MD [address] [place] [address] Phone: tel: fax: Referral ID Status Reason Start Date Expiration Date Visits Re quested Visits Authorized [id number] 1 1 Encounter Details Date Type Department Care Team (Latest Contact Info) Description 05/27/2023 1:45 PM LEGAL FILE CLERK - 05/30/2023 10:51 AM LEGAL FILE CLERK Hospital Encounter [address] [address] Julio Cesar Curry MD [address] [place], [place] [id number] Paras Sandoval MD [address] [place] [address] Discharge Disposition: Home or Self Care (Routine Discharge) Social History Tobacco Use Types Packs/Day Years Used Date Smoking Tobacco: Never Smokeless Tobacco: Never [facility] Utilities Answer Date Recorded In the past 12 months has th e electric, gas, oil, or water company threatened to shut off services in your [...] on file documented as of this encounter Last Filed Vital Signs Vital Sign Reading Time Taken Comments Blood Pressure 122/82 05/30/2023 9:00 AM LEGAL FILE CLERK Pulse 86 05/30/2023 9:00 AM LEGAL FILE CLERK Temperature 36.7 ??C (98 ??F) 05/30/2023 9:00 AM LEGAL FILE CLERK Respiratory Rate 16 05/30/2023 9:00 AM LEGAL FILE CLERK Oxygen Saturation 96% 05/30/2023 9:00 AM LEGAL FILE CLERK Inhaled Oxygen Concentration - - Weight 68.5 kg (151 lb) 05/27/2023 1:00 PM LEGAL FILE CLERK Height 165.1 cm (5' 5 ) 05/27/2023 1:00 PM LEGAL FILE CLERK Body Mass Index 25.13 05/27/2023 1:00 PM LEGAL FILE CLERK documented in this encounter Functional Status * Question Answer [...] Assessment Author Status No 05/27/2023 1:00 PM LEGAL FILE CLERK Pagan, Erendira E, RN Active * Do you have serious [...] Stearns RN Active documented in this encounter Discharge Summaries * Julio Cesar Curry MD - 05/30/2023 10:06 AM CSTSummary: Discharge summary Images from the original note were not included. [facility] Hospitalist Discharge Summary Enma Garza female 1940 Admit Date: 05/27/2023 1:45 PM Discharge date and time: 05/30/2023 Primary Care Physician: JOSE A TANNER DO Discharge Physician: Julio Cesar Curry MD Reason for Hospitalization: Syncope, supratherapeutic INR Discharge Diagnosis: Patient Active Problem List Diagnosis Fall at home, initial encounter Chronic anticoagulation Coronary artery disease involving venetie ira coronary artery of venetie ira heart without angina pectoris Post-polio syndrome Cellulitis of left leg Traumatic ecchymosis of left hand Lymphedema Syncope Elevated INR Discharged Condition: Good Code Status: Full Code Hospital Course: Enma Garza is an 82-year-old female with a PMH significant for CAD, DVT, hypertension, and peripheral artery disease who presented as a transfer from outside hospital for syncope. The patient had a TTE which was normal, EKG was sinus, orthostatics were negative, and telemetry did not show any events. She does have a history of bradycardia so EP were consulted and recommended a 30-day eventmonitor with plans to see her in the arrhythmia clinic in 6 weeks. Given the patient's workup is negative we will discharge her with a follow-up with PCP in 1 week. Given her supratherapeutic INR andhence were made to switch her to apixaban, however, patient is unable to afford it so will continueher on home warfarin. The patient was agreeable with the plan as above and all questions were answered. Consults: cardiology Significant Diagnostic Studies: CT ABD+PEL WO CON Result Date: 05/28/2023 Impression: 1. Increased density of the urine within the urinary bladder without other bladder abnormality. This could be related to excretion of contrast from a previous exam elsewhere, if there is corresponding history. Hematuria or dehydration could result in similar appearance. 2. No other acute abnormality identified in the abdomen or pelvis. Ordered By: PARAS SANDOVAL Interpreted By: Checo Morin MD, 05/28/2023 4:42 PM Discharge Medications: Medication List START taking these medications Morning Afternoon Evening Bedtime As Needed apixaban 5 MG tablet Commonly known as: ELIQUIS Take 1 tablet (5 mg total) by mouth 2 (two) times daily. Signed by: Dr. Paras Sandoval MD CONTINUE taking these medications Morning Afternoon Evening Bedtime As Needed albuterol sulfate HFA 108 (90 Base) MCG/ACT inhaler Inhale 2 puffs into the lungs 4 (four) times daily. ALPRAZolam 1 MG tablet Commonly known as: XANAX nightly at bedtime. Last time this was given: 0.25 mg on May 28, 2023 2:05 PM aspirin EC 81 MG tablet Commonly known as: ECOTRIN Take 1 tablet (81 mg total) by mouth daily. Last time this was given: Ask your nurse or doctor furosemide 20 MG tablet Commonly known as: LASIX Take by mouth daily. Last time this was given: 20 mg on May 30, 2023 8:41 AM lisinopril 20 MG tablet Commonly known as: PRINIVIL Take 1 tablet (20 mg total) by mouth daily. Last time this was given: 20 mg on May 30, 2023 8:41 AM Signed by: Kathryn Moyer ELECTROSTATIC PAINTER-BC nitroglycerin 0.4 MG SL tablet Commonly known as: NITROSTAT Place 1 tablet (0.4 mg total) under the tongue. rosuvastatin 10 MG tablet Commonly known as: CRESTOR Take 1 tablet (10 mg total) by mouth nightly at bedtime. warfarin 3 MG tablet Commonly known as: COUMADIN Last time this was given: 2 mg on May 29, 2023 5:45 PM STOP taking these medications benazepril 10 MG tablet Commonly known as: LOTENSIN benazepril-hydroCHLOROthiazide 10-12.5 MG tablet Commonly known as: LOTENSIN HCT Disposition: Home or Self Care (Routine Discharge) Home Health / Patient Plan of Care statement: (Not needed) Patient Instructions: Wound care: none needed Therapies ordered: None Physical Exam Vitals and nursing note reviewed. Constitutional: General: She is not in acute distress. HENT: Head: Normocephalic. Mouth/Throat: Pharynx: No oropharyngeal exudate. Eyes: General: No scleral icterus. Pupils: Pupils are equal, round, and reactive to light. Neck: Vascular: No JVD. Cardiovascular: Rate and Rhythm: Normal rate and regular rhythm. Heart sounds: Normal heart sounds. No murmur heard. Pulmonary: Effort: Pulmonary effort is normal. No respiratory distress. Breath sounds: Normal breath sounds. No wheezing or rales. Abdominal: General: Bowel sounds are normal. Palpations: Abdomen is soft. Tenderness: There is no abdominal tenderness. There is no guarding. Musculoskeletal: Cervical back: Neck supple. Skin: Findings: No erythema. Neurological: Mental Status: She is alert and oriented to person, place, and time. Cranial Nerves: No cranial nerve deficit. Gait: Gait is intact. Psychiatric: Mood and Affect: Mood and affect normal. Time spent on discharge: Less than 30 minutes Signed Julio Cesar Curry MD L FILE CLERK L FILE CLERK documented in this encounter Medications at Time of Discharge apixaban (ELIQUIS) 5 MG tablet Take 1 [...] MG tablet nightly at bedtime. 07/04/2021 07/26/2023 lisinopril 20 MG tablet Take 1 tablet (20 mg total) by mouth daily. 30 tablet 09/03/2021 07/26/2023 nitroglycerin (NITROSTAT) 0.[address] 1 tablet (0.4 mg total) under the tongue. 02/01/2023 02/01/2024 warfarin 3 MG tablet 07/21/2021 07/26/2023 documented as of this encounter Progress Notes * Richar Cohen - 05/30/2023 4:53 AM CST Patient received Communion. Entered on behalf of Luz Maria Isbell/DEBI 05/30/2023 1116/AA Rev. Nick OrtezDiv. L FILE CLERK * Cynthia Ferraro RN - 05/30/2023 12:46 AM CST Problem: Safety Goal: Patient will be injury free during hospitalization Description: Assess and monitor vitals signs, neurological status including level of consciousness and orientation. Assess patient's risk for falls and implement fall prevention plan of care and interventions per hospital policy. Ensure arm band on, uncluttered walking paths in room, adequate room lighting, call light and overbed table within reach, bed in low position, wheels locked, side rails up per policy, and non-skid footwear provided. Outcome: Progressing Problem: Daily Care Goal: Daily care needs are met Description: Assess and monitor ability to perform self care and identify potential discharge needs. Outcome: Progressing L FILE CLERK * Lu Gomez PA-C - 05/29/2023 4:53 PM CST Electrophysiology Progress Note PATIENT NAME: Enma Garza : 1940 PCP: JOSE A TANNER DO CHIEF COMPLAINT: Syncope SUBJECTIVE: The patient reports a little dizziness when first sitting up at the bedside this morning. She denies syncope or near syncope. She denies palpitations, chest pain, or shortness of breath. ECHOCARDIOGRAM 05/28/2023: The left ventricular systolic function is hyperdynamic. Estimated left ventricular ejection fraction is >70%. Mild intracavity gradient, 28 mmHg. Mild to moderate aortic valve stenosis. The peak velocity across the aortic valve measures 2.85m/sec with a peak gradient of 33mmHg and a mean gradient of 24mmHg. The calculated aortic valve area is 1.3cm2. Mild mitral regurgitation. Mild mitral valve stenosis. The mean gradient across the mitral valve is 5mmHg at a heart rate of 78bpm. Estimated right atrial pressure of 3 mmHg. TELEMETRY: Sinus rhythm with average heart rate in the 70s to 80s. There has been no bradycardia, no AV block,and no significant or sustained atrial or ventricular arrhythmia. 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 The patient is found to have hyperdynamic LV systolic function with a mild intracavity gradient andmild to moderate aortic valve stenosis on echocardiogram yesterday. Recommend referral to general cardiology for further evaluation and management of structural heart disease. Mrs. Garza has remained in sinus rhythm with no significant or sustained atrial or ventricular arrhythmia arrhythmia, bradycardia, pauses, or AV block that would explain syncope. We will arrange forthe patient to receive a 30-day nursing project coordinator following hospital discharge. We will then plan to see her for follow-up in our arrhythmia clinic in 6 weeks. EP will follow peripherally. Please call if needed. MEDICATIONS: Scheduled Meds: aspirin 81 mg Oral Daily atorvastatin 20 mg Oral Daily furosemide 20 mg Oral Daily lisinopril 20 mg Oral Daily normal saline 3-10 mL Intravenous Q8H pantoprazole EC 40 mg Oral Daily potassium chloride 20 mEq Oral Daily psyllium 1 packet Oral Daily warfarin (COUMADIN) pharmacy to dose Oral See Admin Instructions warfarin 2 mg Oral Once Continuous Infusions: PRN Meds: acetaminophen, nitroglycerin, normal saline REVIEW OF SYSTEMS: Review of Systems Constitutional: Negative for new or significant fatigue and weakness. HENT: Negative for headaches. Respiratory: Negative for new or significant shortness of breath. Cardiovascular: Negative for chest pain and palpitations. Gastrointestinal: Negative for nausea, vomiting and abdominal pain. Neurological: Positive for dizziness. PHYSICAL EXAMINATION: Vitals: Blood pressure (!) 142/62, pulse 86, temperature 98.2 ??F (36.8 ??C), resp. rate 17, height1.651 m (5' 5 ), weight 68.5 kg (151 lb), SpO2 95 %. Physical Exam Constitutional: General: She is not in acute distress. Appearance: She is well-developed. HENT: Head: Normocephalic and atraumatic. Nose: No mucosal edema. Eyes: Conjunctiva/sclera: Conjunctivae normal. Neck: Vascular: No carotid bruit or JVD. Cardiovascular: Rate and Rhythm: Normal rate and regular rhythm. No extrasystoles are present. Heart sounds: S1 normal and S2 normal. Murmur heard. Pulmonary: Effort: Pulmonary effort is normal. No respiratory distress. Breath sounds: Normal breath sounds. Abdominal: General: There is no distension. Palpations: Abdomen is soft. Tenderness: There is no abdominal tenderness. Musculoskeletal: Cervical back: Neck supple. Right lower leg: No edema. Left lower leg: No edema. Skin: General: Skin is warm and dry. Findings: No erythema. Neurological: Mental Status: She is alert and oriented to person, place, and time. Psychiatric: Behavior: Behavior normal. Thought Content: Thought content normal. LABORATORY RESULTS: Lab Results Component Value Date NA 140 05/29/2023 K 3.8 05/29/2023 CL 109 (H) 05/29/2023 CO2 26.1 05/29/2023 AGAP 4.9 (L) 05/29/2023 BUN 6 (L) 05/29/2023 CR 0.73 05/29/2023 GFRNON 66 (L) 09/02/2021 GFR 76 (L) 09/02/2021 GLU 95 05/29/2023 CA 8.3 (L) 05/29/2023 Lab Results Component Value Date WBC 4.84 05/29/2023 HGB 11.3 (L) 05/29/2023 PLT 139 (L) 05/29/2023 Recent Labs Lab 05/27/23 1442 05/28/23 0519 05/29/23 0813 INR 5.8* 3.2* 1.9* Signed LU GOMEZ PA-C 05/29/2023 Cosigned by Everardo Smith MD at 05/29/2023 5:00 PM LEGAL FILE CLERK L FILE CLERK L FILE CLERK * Jenelle Castellon - 05/29/2023 4:46 PM CST 05/29/23 1646 Referral Data Source of Information Chart review Patient Information Primary Caregiver Self;Family Current living Situation Children Type of Residence Private residence Support System Immediate family Baseline ADL's Functional Status Independent Active DME Walker Behavior Oriented Communication Talks Psychosocial Need Indicator Mental health concerns No Complex Family concerns No Abuse and/or neglect of elder, adult or child No Psychiatric and/or substance abuse issues affecting current hospitalization No Homelessness with lack of safe discharge environment No DC screening tool Will the patient be returning to prior living situation with no new identified needs? Yes Based on the screening the DC plan for consideration is: Patient expects to be discharged to: Home or Self care no new needs Adequate Resources Available Adequate Resources Yes Pt lives at home with her daughter in a home with 1 step to enter and a 2nd floor to which Pt does not need to use. Pt has a walker at home to use if needed. Pt is independent with ADLs and daughter helps out. PCP- Jose A Tanner. L FILE CLERK * Paras Sandoval MD - 05/29/2023 3:55 PM CST Progress note CC:- f/u of syncope, supratherapeutic INR, nausea abdo pain SUBJECTIVE Patient seen and examined. Abdo pain resolved nausea improving No further passing out spells Not sure if she worked with therapy yet OBJECTIVE Wt Readings from Last 3 Encounters: 05/27/23 68.5 kg (151 lb) 09/02/21 67.6 kg (149 lb) Temp: 98.2 ??F (36.8 ??C) BP Readings from Last 3 Encounters: 05/29/23 (!) 142/62 09/02/21 138/66 Pulse Readings from Last 3 Encounters: 05/29/23 86 09/02/21 95 Review of Systems Constitutional: Negative for chills, fever and weight loss. HENT: Negative for congestion and ear pain. Eyes: Negative for blurred vision and double vision. Respiratory: Negative for cough, hemoptysis, sputum production, shortness of breath and wheezing. Cardiovascular: Negative for chest pain, palpitations, orthopnea, leg swelling and PND. Gastrointestinal: Negative for abdominal pain, blood in stool, nausea and vomiting. Genitourinary: Negative for dysuria, flank pain and hematuria. Musculoskeletal: Negative for back pain, joint pain and neck pain. Skin: Negative for rash. Neurological: Negative for speech change, focal weakness and loss of consciousness. Endo/Heme/Allergies: Negative for polydipsia. Psychiatric/Behavioral: Negative for depression and suicidal ideas. The patient is not nervous/anxious. All other systems reviewed and are negative. PHYSICAL EXAMINATION: Physical Exam Vitals and nursing note reviewed. Constitutional: General: She is not in acute distress. HENT: Head: Normocephalic. Mouth/Throat: Pharynx: No oropharyngeal exudate. Eyes: General: No scleral icterus. Pupils: Pupils are equal, round, and reactive to light. Neck: Vascular: No JVD. Cardiovascular: Rate and Rhythm: Normal rate and regular rhythm. Heart sounds: Normal heart sounds. No murmur heard. Pulmonary: Effort: Pulmonary effort is normal. No respiratory distress. Breath sounds: Normal breath sounds. No wheezing or rales. Abdominal: General: Bowel sounds are normal. Palpations: Abdomen is soft. Tenderness: There is no abdominal tenderness. There is no guarding. Musculoskeletal: Cervical back: Neck supple. Skin: Findings: No erythema. Neurological: Mental Status: She is alert and oriented to person, place, and time. Cranial Nerves: No cranial nerve deficit. Gait: Gait is intact. Psychiatric: Mood and Affect: Mood and affect normal. LABS: Recent Labs 05/27/23 1442 05/28/2319 05/29/2311 WBC 5.69 5.56 4.84 HGB 12.6 11.5* 11.3* HCT 38.3 34.2* 34.6* MCV 90.8 87.9 90.8 PLT 160 153 139* RBC 4.22 3.89* 3.81* Recent Labs 05/27/23 1442 05/28/2319 05/29/23510 ALT 12* -- 14 AST 20 -- 16 CO2 28.5 27.0 26.1 CL 113* 110* 109* GLU 125* 114* 95 K 3.4* 3.1* 3.8 NA 146* 142 140 BUN 7 6* 6* No intake or output data in the 24 hours ending 05/29/23 1555 Microbiology Results (last 14 days) Procedure Component Value Units Date/Time OCCULT BLOOD, FECES, SCREENING [[id number]] Order Status: No result Lab Status: No result Specimen: STOOL OCCULT BLOOD, FECES, SCREENING [[id number]] Order Status: No result Lab Status: No result Specimen: STOOL Radiology MEDICATIONS Scheduled medications aspirin 81 mg Oral Daily atorvastatin 20 mg Oral Daily furosemide 20 mg Oral Daily lisinopril 20 mg Oral Daily normal saline 3-10 mL Intravenous Q8H pantoprazole EC 40 mg Oral Daily psyllium 1 packet Oral Daily warfarin (COUMADIN) pharmacy to dose Oral See Admin Instructions warfarin 2 mg Oral Once Infusion PRN acetaminophen, nitroglycerin, normal saline ASSESSMENT /PLAN Enma Garza is a 82-year-old female with the following history as recorded in EpicCare: Problem List Items Addressed This Visit None PLAN: MH significant for CAD, DVT, hypertension, and peripheral artery disease who presented as a transfer from outside hospital for syncope H/o of bradycardia not on b bharati Syncope Telemetry no events EKG sinus TTE normal Orthostatics neg Ep consulted given h/o og bradycardia ? Needs holter- recommends outpt f/u feels possible neurocardiogenic Hypertension unable to tolerate b bharati Resume lisinpril , lasix and monitor inpatient CAD on aspirin, statin maddison Leg edema resume lasix improving Nausea bloating abdo pain-resolved Ct abdo neg tolerating diet today without nausea Supratherapeutic inr now down to 1.9 resume warfarin unable to afford eliquis Anemia with mild thrombocytopenia - monitor hh overnight Pt/ot eval pending Hypokalemia resolved Medically complex Keep on tele If doing better in am hh stable consider d/c with pcp to monitor inr twice weekly PARAS SANDOVAL MD 3:55 PM 05/29/2023 L FILE CLERK L FILE CLERK * Sabrina Rebollar, PT - 05/29/2023 3:27 PM CSTSummary: PT Initial Evaluation PT Initial Evaluation Discharge Recommendation: home with assistance No skilled P/T Activity Recommendation for finance manager: Up with 1 using 2WW. Up to chair for meals. Ambulation as tolerated. 05/29/23 1550 Therapy Visit Ordering Provider MD Lori Subjective RN gave ok prior to therapy evaluations. Pt agreeable to therapy evaluations and provided PLOF information. Reason for admission Pt presented to the [facility] with LE wound bleeding. INR 11.1. Pt with RR called due to unresponsive episode and BP 60/40. CT abd/pelvis negative for bleeding. Pt reports similar episodes with hx of anxiety attacks. Pt transferred to [facility] and admitted with syncope, supratherapeutic INR, and nausea. PMHx: CAD, COVID 2020, DVT, HTN, PAD, polio with L LE weakness, cardiac stents. Orders: evaluate and tx; activity as tolerated Verified Two Patient Identifiers Yes Patient consents to therapy Yes Acute Inpatient PT Time Calculation PT Start Time 1509 PT Stop Time 1527 PT Time Calculation (min) 18 min Precautions General Precautions Bed Alarm;Chair Alarm Instructed on Precautions Yes;Verbalizes understanding Other telemetry Home Living Home Living Comments Pt lives with her daughter in a 2 story home. There is one step to enter the home with a grab bar. Pt's bedroom/bathroom are located on the main floor and she doesn't use the upper level. Pt has a tub shower with a seat, but no grab bars. The toilet is tall with the sink nearbyfor support. Pt is normally independent with all ADLs. Pt uses a 2WW for all functional mobility. She also owns a 4WW, but states she only uses it if she needs to carry a lot of things, as she prefers the 2WW. Pt's daughter does the cleaning. Pt does her own laundry and they share the cooking. Pt drives. Pt's daughter is available to assist 14/01 if needed. Pt reports one fall in February due to c atching her leg and her WW on the coffee table. Pain Pain No Activity Tolerance Endurance Quality Good Limiting Factors to Endurance Acute deconditioning;Shortness of breath;Fatigue Activity Tolerance Comments Pt reports feeling SOB after ambulating in the walls, requiring a seatedrest break before going into the bathroom. Vision - Basic Assessment Current Vision Wears glasses only for reading Vision - Complex Assessment Additional Comments No new visual deficits reported. Pt able to read clock without difficulty. Cognition Overall Cognitive Status WFL Arousal/Alertness Appropriate responses to stimuli Attention Span Appears intact Memory Appears intact Orientation Level Oriented X4 Following Commands Follows all commands and directions without difficulty Safety Judgment Good awareness of safety precautions Awareness of Errors Good awareness of errors made Deficits Fully aware of deficits Problem Solving Able to problem solve independently Comments Pt alert and oriented. Pt pleasant and cooperative throughout. Pt slightly particular about the way things are done. Pt requires minimal cueing for hand placement with transfers. Sensation Light Touch No apparent deficits Additional Comments Pt reports she usually gets tingling in her L thumb and index finger when she first wakes up in the morning, but none currently. RLE Assessment RLE Comment R LE AROM WFL. Strength 4/5 except for hip flexor 4-/5 LLE Assessment LLE Comment L LE swollen and painful at baseline. Very limited AROM of L LE due to chronic weakness. Bed Mobility Supine to Sit Modified independence Other (Comment) HOB elevated TRANSFERS Sit to Stand Modified independence Bed to Chair Modified independence Other (Comment) use of 2WW for transfers and STS from EOB and toilet all with mod I. No overt LOB. Pt requires minimal cueing for hand placement with transfers and to push up from bed vs 2WW to prevent tipping. Gait Gait Assistance SBA/supervision Assistive Device 2 Wheeled walker Distance Ambulated (ft) 75 ft Other (Comment) Pt ambulates in hallways with 2WW SBA. Overall dec agustin, step length and foot clearance but no overt LOB. Fatigues quickly and becomes SOB but able to recognize and take seated rest break prior to ambulating to bathroom. Stairs Stair Management Assistance RILEY Other (Comment) declines offer to practice stair climbing reporting no concern about ability to do at DC Balance Sitting - Static Independent Sitting - Dynamic Independent Standing - Static SBA;Modified independence;Support of both upper extremities Standing - Dynamic SBA;Support of both upper extremities Other (Comment) use of 2WW, no overt LOB. Assessment Personal Factors/Comorbidities Impacting Care 3-4 personal factors/comorbidities Examination of Body Systems Low (1-2 Elements) Objectives of Body Systems Decreased endurance;Decreased LE strength Clinical Presentation of Patient Stable uncomplicated Complexity Level of Evaluation Low Prognosis Good PT Assess/Eval Other (Comment) Patient is a 82-year-old female admitted for admitted with syncope, supratherapeutic INR, and nausea. Patient demonstrates gait, transfers and bed mobility that are allWFL. Pt is able to ambulate with SBA using her 2WW and complete bed mobility and transfers with Meena. Patient reports no concerns about returning home and will have 24/7 assist from daughter if needed. Pt is functioning near her baseline for all mobility and ADLs and no further skilled physical therapy needs identified at this time. PT will sign off. Encourage ambulation with nursing during remainder of hospitalization. Patient/Family Training Other (Comment) Pt educated on therapy discharge and importance of continuing mobility during hospitalization. Pt verbalized understanding. Discharge Recommendation PT Recommendation Home with assistance;No skilled PT PT Equipment Recommended Currently has DME in Place No Skilled PT No acute PT goals identified Plan Progress Discontinue PT PT - Next Appointment 05/29/23 If this is the last treatment note,it will serve as the discharge summary Yes End of Session End of Session Safety Chair alarm set/activated;Call light within reach;Nursing aware of session;Transfer status education Education: Primary Learners Name: Enma Garza Primary Language of learner: Danish Patient was educated on transfers ADLs balance bed mobility equipment therapy plan gait safety energy conservation. Education was completed one to one verbal hands-on this date. Preference of learning new concepts one to one verbal hands-on Barriers to education this date were none. Response to education this date verbalized understanding. L FILE CLERK * Amy Matthews RN - 05/29/2023 3:19 PM CST 05/29/23 1330 Interdisciplinary Group Conference Team Members Present Physician;Case/Care management Physician present for group conference Dr Sandoval Barriers to Discharge Barriers No Barrier- Medical Milestone in Process No Barrier- Medical Milestone in Process follow up pt/ot recs needed. possible discharge L FILE CLERK * Ifeoma Hernández, OT - 05/29/2023 3:09 PM CSTSummary: OT Eval OT Initial Evaluation Discharge Recommendation: home with assistance No skilled OT Activity Recommendation for finance manager: up to chair for all meals, walking into the bathroom and walking in the halls with SBA using the WW 05/29/23 1509 Therapy Visit OT Received On 05/29/23 Reason for admission Pt presented to the F with LE wound bleeding. INR 11.1. Pt with RR called due to unresponsive episode and BP 60/40. CT abd/pelvis negative for bleeding. Pt reports similar episodes with hx of anxiety attacks. Pt transferred to [facility] and admitted with syncope, supratherapeutic INR, and nausea. PMHx: CAD, COVID 2020, DVT, HTN, PAD, polio with L LE weakness, cardiac stents. Orders: evaluate and tx; activity as tolerated Ordering Provider MD Lori Verified Two Patient Identifiers Yes Patient consents to therapy Yes Acute Inpatient OT Time Calculation OT Start Time 1509 OT Stop Time 1527 OT Time Calculation (min) 18 min Precautions General Precautions Bed Alarm;Chair Alarm Other telemetry Subjective Subjective RN gave ok prior to therapy evaluations. Pt agreeable to therapy evaluations and provided PLOF information. Home Living Home Living Comments Pt lives with her daughter in a 2 story home. There is one step to enter the home with a grab bar. Pt's bedroom/bathroom are located on the main floor and she doesn't use the upper level. Pt has a tub shower with a seat, but no grab bars. The toilet is tall with the sink nearbyfor support. Pt is normally independent with all ADLs. Pt uses a 2WW for all functional mobility. She also owns a 4WW, but states she only uses it if she needs to carry a lot of things, as she prefers the 2WW. Pt's daughter does the cleaning. Pt does her own laundry and they share the cooking. Pt drives. Pt's daughter is available to assist 14/01 if needed. Pt reports one fall in February due to c atching her leg and her WW on the coffee table. Pain Pain No Objective Objective Pt seen in room 1116A. Pt in bed upon ent. Gait belt and WW used for all functional mobility. Pt up in chair with call light nearby and chair alarm on upon ext. Activity Tolerance Endurance Quality Good Limiting Factors to Endurance Acute deconditioning;Shortness of breath;Fatigue Activity Tolerance Comments Pt reports feeling SOB after ambulating in the walls, requiring a seatedrest break before going into the bathroom. Vision - Basic Assessment Current Vision Wears glasses only for reading Vision - Complex Assessment Additional Comments No new visual deficits reported. Pt able to read clock without difficulty. Cognition Overall Cognitive Status WFL Arousal/Alertness Appropriate responses to stimuli Attention Span Appears intact Memory Appears intact Orientation Level Oriented X4 Following Commands Follows all commands and directions without difficulty Safety Judgment Good awareness of safety precautions Awareness of Errors Good awareness of errors made Deficits Fully aware of deficits Problem Solving Able to problem solve independently Comments Pt alert and oriented. Pt pleasant and cooperative throughout. Pt slightly particular about the way things are done. Pt requires minimal cueing for hand placement with transfers. Overall Extremity Assessment Upper Extremity WFL B UE; overall generalized weakness Hand Function Hand Dominance Right Gross Grasp Functional Coordination Functional Sensation Light Touch No apparent deficits Additional Comments Pt reports she usually gets tingling in her L thumb and index finger when she first wakes up in the morning, but none currently. ADL Eating/Feeding Assistance Independent;Sitting in chair LE Dressing Assistance Stand by;Sitting in chair Toileting Assistance Stand by Bed Mobility Supine to Sit Modified independence Functional Transfers Sit to Stand Modified independence Bed to Chair Modified independence Toilet Transfers Grab bars;Modified Independent Functional Mobility Pt completed sit>stand from EOB with modified independence. Pt completed functional room/bathroom/hallway mobility to simulate home and community environments with SBA using the WW. Pt demonstrated no LOB throughout. Balance Sitting - Static Independent Sitting - Dynamic Independent Standing - Static SBA;Modified independence;Support of both upper extremities Standing - Dynamic SBA;Support of both upper extremities Assessment Occupational Profile and History Complexity Moderate (Expanded) Performance Deficit Level Low (1-3 deficits) Clinical Decision Making Low (no modifications) Complexity Level of Evaluation Low Prognosis Good OT Assess/Eval Other (Comment) Pt is an 82 year old female admitted with syncope, supratherapeutic INR, and nausea. OT evaluation completed 05/29. Pt is functioning at her baseline for all ADLs and functional mobility. Pt voices no concerns for ADLs or functional mobility upon discharge. No skilled OT needs identified. OT will sign off at this time. Pt would benefit from return home with increasedassist as needed. Thank you for the consult. Please send new orders if pt has a change in medical status. Patient/Family Training Other (Comment) Pt educated on therapy discharge and importance of continuing mobility during hospitalization. Pt verbalized understanding. Discharge Recommendation OT Recommendation Home with assistance;No skilled OT No Skilled OT No acute OT goals identified Plan Progress Discontinue OT OT - Next Appointment 05/29/23 If this is the last treatment note, it will serve as the discharge summary Yes End of Session End of Session Safety Chair alarm set/activated;Call light within reach;Nursing aware of session;Transfer status education Education: Patient was educated on therapy plan safety. Preference of learning new concepts verbal Barriers to education this date were none. Response to education this date verbalized understanding needs reinforcement. By: AMENA Dodd, OTR/L; 05/29/23 L FILE CLERK * Annalee Hickman, PharmD - 05/29/2023 2:24 PM CST Warfarin - Pharmacy Dosing Service Note Enma Garza is a 82-year-old female for which pharmacy has been consulted to dose warfarin for DVT. Goal INR is 2-3. Warfarin Order Set Activated: Yes Warfarin Start Date: continuation from home Past Medical History: Diagnosis Date CAD (coronary artery disease) COVID-19 01/2021 DVT (deep venous thrombosis) ([facility]/HCC) left upper extremity HTN (hypertension) Mild aortic stenosis Non-rheumatic mitral regurgitation PAD (peripheral artery disease) (CMS/HCC) Polio Home warfarin dose: 3mg daily but patient was admitted with an INR of 11.[address] [facility] Bridging agent: none Vitamin K use:no Diet: PO Recent Labs Lab 05/27/23 1442 05/28/23 0519 05/29/23 0511 HGB 12.6 11.5* 11.3* HCT 38.3 34.2* 34.6* PLT 160 153 139* AST 20 -- 16 ALT 12* -- 14 ALKP 75 -- 66 ALB 2.7* -- 2.4* Date INR Dose Received 05/29 1.9 2mg Drug interactions: Potential to increase INR: none Potential to decrease INR: none Potential to increase the risk of bleeding: aspirin Warfarin Sensitivity: high, based on the following risk factors: age > or = to 80, baseline INR > or = to 1.4, albumin < or = to 2.5, and concomitant antiplatelet therapy. Hgb/Hct today are stable INR today is Subtherapeutic The plan is to give a 2 mg dose once tonight and recheck an INR in the morning to assist with subsequent dosing. Pharmacy will continue to monitor labs and notes daily, adjusting the dose as clinically appropriate. Thank you for the consult. Pharmacy to dose per Dr. Lori HICKMAN, PharmD Phone number: [phone] 05/29/2023 2:25 PM L FILE CLERK * Ronal Rose RN - 05/28/2023 11:37 PM CST Problem: Pain control/comfort Goal: Promote pain control/comfort Outcome: Progressing Problem: Skin integrity, Impaired-pressure injury/ulcer Goal: Evidence of pressure injury/ulcer healing Outcome: Progressing Problem: Reduced risk for falls/injury Goal: Reduced Risk for Falls/Injury Outcome: Progressing L FILE CLERK * Paras Sandoval MD - 05/28/2023 12:22 PM CST Progress note CC:- f/u of syncope, supratherapeutic INR, nausea bloating SUBJECTIVE Patient seen and examined. Says her security systems manager was planning to switch her to eliquis she doesn't know cost No passing out spell overnight Has had nausea and abdo bloating worsening 4 months Went to [facility] for bleeding from leg and had syncope Denies blood in stools OBJECTIVE Wt Readings from Last 3 Encounters: 05/27/23 68.5 kg (151 lb) 09/02/21 67.6 kg (149 lb) Temp: 98.1 ??F (36.7 ??C) BP Readings from Last 3 Encounters: 05/28/23 (!) 141/45 09/02/21 138/66 Pulse Readings from Last 3 Encounters: 05/28/23 90 09/02/21 95 Review of Systems Constitutional: Negative for chills, fever and weight loss. HENT: Negative for congestion and ear pain. Eyes: Negative for blurred vision and double vision. Respiratory: Negative for cough, hemoptysis, sputum production, shortness of breath and wheezing. Cardiovascular: Negative for chest pain, palpitations, orthopnea, leg swelling and PND. Gastrointestinal: Negative for abdominal pain, blood in stool, nausea and vomiting. Genitourinary: Negative for dysuria, flank pain and hematuria. Musculoskeletal: Negative for back pain, joint pain and neck pain. Skin: Negative for rash. Neurological: Negative for speech change, focal weakness and loss of consciousness. Endo/Heme/Allergies: Negative for polydipsia. Psychiatric/Behavioral: Negative for depression and suicidal ideas. The patient is not nervous/anxious. All other systems reviewed and are negative. PHYSICAL EXAMINATION: Physical Exam Vitals and nursing note reviewed. Constitutional: General: She is not in acute distress. HENT: Head: Normocephalic. Mouth/Throat: Pharynx: No oropharyngeal exudate. Eyes: General: No scleral icterus. Pupils: Pupils are equal, round, and reactive to light. Neck: Vascular: No JVD. Cardiovascular: Rate and Rhythm: Normal rate and regular rhythm. Heart sounds: Normal heart sounds. No murmur heard. Pulmonary: Effort: Pulmonary effort is normal. No respiratory distress. Breath sounds: Normal breath sounds. No wheezing or rales. Abdominal: General: Bowel sounds are normal. Palpations: Abdomen is soft. Tenderness: There is no abdominal tenderness. There is no guarding. Musculoskeletal: Cervical back: Neck supple. Right lower leg: Edema present. Left lower leg: Edema present. Skin: Findings: No erythema. Neurological: Mental Status: She is alert and oriented to person, place, and time. Cranial Nerves: No cranial nerve deficit. Gait: Gait is intact. Psychiatric: Mood and Affect: Mood and affect normal. LABS: Recent Labs 05/27/23 1442 05/28/23 0519 WBC 5.69 5.56 HGB 12.6 11.5* HCT 38.3 34.2* MCV 90.8 87.9 PLT 160 153 RBC 4.22 3.89* Recent Labs 05/27/23 1442 05/28/23 0519 ALT 12* -- AST 20 -- CO2 28.5 27.0 CL 113* 110* GLU 125* 114* K 3.4* 3.1* NA 146* 142 BUN 7 6* No intake or output data in the 24 hours ending 05/28/23 1222 Microbiology Results (last 14 days) Procedure Component Value Units Date/Time OCCULT BLOOD, FECES, SCREENING [[id number]] Order Status: No result Lab Status: No result Specimen: STOOL OCCULT BLOOD, FECES, SCREENING [[id number]] Order Status: No result Lab Status: No result Specimen: STOOL Radiology MEDICATIONS Scheduled medications aspirin 81 mg Oral Daily atorvastatin 20 mg Oral Daily docusate sodium 100 mg Oral BID furosemide 20 mg Oral Daily lisinopril 20 mg Oral Daily normal saline 3-10 mL Intravenous Q8H potassium chloride 40 mEq Oral Once potassium chloride 40 mEq Oral Once Infusion PRN acetaminophen, nitroglycerin, normal saline ASSESSMENT /PLAN Enma Garza is a 82-year-old female with the following history as recorded in [facility]: Problem List Items Addressed This Visit None PLAN: PMH significant for CAD, DVT, hypertension, and peripheral artery disease who presented as a transfer from outside hospital for syncope H/o of bradycardia not on b bharati Syncope Telemetry no events EKG sinus TTE pending Orthostatics pending Ep consulted given h/o og bradycardia ? Needs holter Hypertension unable to tolerate b bharati Resume lisinpril and monitor inpatient CAD on aspirin, statin maddison Leg edema resume lasix Nausea bloating abdo pain Will check lipase, add ppi get ct abdomen Supratherapeutic inr 3.2 hold warfarin until hh tracked another day and hi bleed ruled out Will send script for eliPanacela Labsis to find cost Pt/ot eval Hypokalemia give 80 meq potassium Medically complex Keep on tele Total Time: Minutes - Time at bedside: - Discussions with other medical staff: - Discussions with family members: - Reviewing labs, x-rays, etc.: - Reviewing old records: - Time spent documenting the encounter: PARAS SANDOVAL MD 12:22 PM 05/28/2023 L FILE CLERK * Delia Murillo - 05/27/2023 6:59 PM CST 05/27/23 1615 Clinical Encounter Type Visited With Patient;Health care provider Total number in room 2 Routine Visit Initial visit Plan of Care Spiritual care goals begin/continue to experience spiritual support in manner that is comfortable for them;patient;awareness of pastoral presence/services Comments pt requested a Bible and it was given to pt. Spiritual Care interventions Spiritual care plan interventions Offered a listening/supportive presence for patient/family;Provide support to patient/family;Provide prayer/ritual/sacraments Jewish Encounters Jewish articles Bible;Prayer cards;Rosary L FILE CLERK * Delia Murillo - 05/27/2023 6:27 PM CST 05/27/23 1615 Spiritual Care Patient Status Visit date 05/27/23 Physical condition of patient Alert Indication of spiritual strengths Prayerful;Hopeful;Supportive relationship Spiritual Beliefs/Perceptions Relationship with God Close Support Systems Family members Plan of Care Spiritual care goals begin/continue to experience spiritual support in manner that is comfortable for them;patient;awareness of pastoral presence/services Comments pt requested a Bible and it was given to pt. Delia Murillo MA Spiritual Care Instrument Specialist, [facility] L FILE CLERK documented in this encounter H&P Notes * Julio Cesar Curry MD - 05/27/2023 2:16 PM CSTSummary: [facility] Hospitalist H&P [facility] Hospitalist History & Physical Attending Provider: Julio Cesar Curry MD PCP: SUKHI FRANKEL MD Chief Complaint: Syncope HPI: Enma Garza is an 82-year-old female with a PMH significant for CAD, DVT, hypertension, and peripheral artery disease who presented as a transfer from outside hospital for syncope. The patient stated that she went to the outside hospital because she noted her wound on her right leg was bleeding. She says that she is on a blood thinner and thought that it was secondary to that. When she got to the hospital her INR was noted to be 11.1 for which she was admitted. This morning the patient was sitting on her chair when she became unresponsive and apparently had a blood pressure of 60/40. Rapid response was called and the patient was back to her baseline mental status. CTA of the chest abdomen and pelvis were ordered which were negative. The patient says that she does have a history of anxiety attacks and felt like this was secondary to that. Currently she denies any chest pain, shortness of breath, nausea, vomiting, diarrhea, or dysuria. The patient says that she feels like she is at her baseline. Past Medical History: Diagnosis Date CAD (coronary artery disease) COVID-19 01/2021 DVT (deep venous thrombosis) ([facility]) left upper extremity HTN (hypertension) Mild aortic stenosis Non-rheumatic mitral regurgitation PAD (peripheral artery disease) ([facility]) Polio Review of patient's allergies indicates: Allergen Reactions Prednisone Blurred vision Social History Tobacco Use Smoking status: Never Smokeless tobacco: Never Substance Use Topics Alcohol use: Not on file Family History Family history unknown: Yes No current facility-administered medications on file prior to encounter. Current Outpatient Medications on File Prior to Encounter Medication Sig aspirin EC (ASPIRIN EC) 81 MG tablet Take 1 tablet (81 mg total) by mouth daily. benazepril-hydroCHLOROthiazide (LOTENSIN HCT) 10-12.5 MG tablet Take 1 tablet by mouth daily. furosemide 20 MG tablet Take by mouth daily. nitroglycerin (NITROSTAT) 0.[address] 1 tablet (0.4 mg total) under the tongue. rosuvastatin 10 MG tablet Take 1 tablet (10 mg total) by mouth nightly at bedtime. warfarin 3 MG tablet albuterol sulfate HFA 108 (90 Base) MCG/ACT inhaler Inhale 2 puffs into the lungs 4 (four) times daily. ALPRAZolam 1 MG tablet nightly at bedtime. benazepril 10 MG tablet Take by mouth nightly at bedtime. lisinopril 20 MG tablet Take 1 tablet (20 mg total) by mouth daily. ROS 14 point review of systems negative except as documented in HPI Blood pressure (!) 170/73, pulse 78, temperature 98.1 ??F (36.7 ??C), temperature source Oral, resp. rate 20, height 1.651 m (5' 5 ), weight 68.5 kg (151 lb), SpO2 98 %. Physical Exam Constitutional: Oriented to person, place, and time. Appears well-developed and well-nourished. HEENT: Normocephalic. Atraumatic. EOMI. Cardiovascular: Normal rate, regular rhythm and normal heart sounds. Pulmonary/Chest: Effort normal and breath sounds normal. No respiratory distress. Abdominal: Soft. Bowel sounds are normal. No distension. Musculoskeletal: No tenderness or edema. Normal range of motion. Neurological: Alert and oriented to person, place, and time. Skin: Skin is warm. No rash noted. No erythema. No pallor. No results for input(s): WBC , HGB , HCT , MCV , PLT , RBC in the last 72 hours. No results for input(s): NA , K , CL , CO2 , AGAP , BUN , CR , BUNCREATININ , GFRNON , GFR , GLU , CA , TP , ALB , TBIL , ALKP , AST , ALT in the last 168 hours. No results for input(s): INR in the last 168 hours. No results found for this visit on 05/27/23. No results found. Assessment / Plan: Enma Garza is an 82-year-old female with a PMH significant for CAD, DVT, hypertension, and peripheral artery disease who presented as a transfer from outside hospital for syncope. She had a rapid response called around 8 AM this morning because she was noted to be blue with a blood pressure of 60/40. This resolved and all further work-up was negative. Currently the patient is at her baseline. Episode of hypotension History of hypertension Will hold home furosemide, benazepril, and hydrochlorothiazide Will monitor on telemetry and obtain echo EKG at outside hospital showed sinus bradycardia with QT prolongation Will repeat EKG and avoid QT prolonging medications Can consult cardiology based on above results if needed Elevated INR DVT Will hold home warfarin for now Can resume when INR normalizes Hyperlipidemia CAD Will continue home medications Diet: Cardiac DVT prophylaxis: Warfarin CODE STATUS: Full Expected discharge: 1 - 2 days Julio Cesar Curry MD 05/27/2023 L FILE CLERK L FILE CLERK documented in this encounter Consult Notes * Everardo Smith MD - 05/28/2023 5:53 PM CSTAssociated Order(s): IP CONSULT TO ELECTROPHYSIOLOGY Images from the original note were not included. Cardiac Electrophysiology Consult Note PATIENT NAME: Enma Garza : 1940 REFERRING PROVIDER: KALEY Lakhani PCP: JOSE A TANNER DO Chief Complaint: Syncope Elevated INR Reason for Consult Syncope History of Present Illness 82-year-old year old female with a PMH significant for CAD, DVT, hypertension, and peripheral artery disease who presented as a transfer from outside hospital for syncope. The patient stated that shewent to the outside hospital because she noted her wound on her right leg was bleeding. She is on ablood thinner and thought that it was secondary to that. When she got to the hospital her INR was noted to be 11.1 for which she was admitted. On 05/27/23 the patient was sitting on her chair when shebecame unresponsive and apparently had a blood pressure of 60/40. Rapid response was called and thepatient was back to her baseline mental status. CTA of the chest abdomen and pelvis were ordered which were negative. She was subsequently transferred to [facility]. The patient reports that she felt nausea, abdominal pain, cold and clammy followed by loss of consciousness. She denies any other lifetime episodes of LOC. She does report other prior episodes when she had her prodrome symptoms but did not have syncope or near syncope. She denies palpitations. Telemetry shows sinus rhythm with no overnight events. Cardiac studies I independently reviewed the patients prior ECG tracings in the EMR. Echo 05/28/23: SUMMARY: ++++++++++++++++++++++++++++++++++++ The left ventricular systolic function is hyperdynamic. Estimated left ventricular ejection fraction is >70%. Mild intracavity gradient, 28 mmHg. Mild to moderate aortic valve stenosis. The peak velocity across the aortic valve measures 2.85m/sec with a peak gradient of 33mmHg and a mean gradient of 24mmHg. The calculated aortic valve area is 1.3cm2. Mild mitral regurgitation. Mild mitral valve stenosis. The mean gradient across the mitral valve is 5mmHg at a heart rate of 78bpm. Estimated right atrial pressure of 3 mmHg. Labs Recent Labs Lab 05/27/23 1442 05/28/23518 WBC 5.69 5.56 HGB 12.6 11.5* HCT 38.3 34.2* PLT 160 153 Recent Labs Lab 05/27/23 1442 05/28/23518 NA 146* 142 K 3.4* 3.1* CL 113* 110* CO2 28.5 27.0 AGAP 4.5* 5.0 BUN 7 6* CR 0.79 0.64 GLU 125* 114* CA 8.7 8.4* Recent Labs Lab 05/27/231441 TP 6.2* ALB 2.7* TBIL 0.4 ALKP 75 AST 20 ALT 12* Recent Labs Lab 05/27/23 1442 05/28/23518 INR 5.8* 3.2* No results for input(s): TSH in the last 168 hours. Invalid input(s): T3FREE , FREET4 No results for input(s): TROP , TROPIWB in the last 168 hours. Medications No current facility-administered medications on file prior to encounter. Current Outpatient Medications on File Prior to Encounter Medication Sig Dispense Refill aspirin EC (ASPIRIN EC) 81 MG tablet Take 1 tablet (81 mg total) by mouth daily. benazepril-hydroCHLOROthiazide (LOTENSIN HCT) 10-12.5 MG tablet Take 1 tablet by mouth daily. furosemide 20 MG tablet Take by mouth daily. nitroglycerin (NITROSTAT) 0.[address] 1 tablet (0.4 mg total) under the tongue. rosuvastatin 10 MG tablet Take 1 tablet (10 mg total) by mouth nightly at bedtime. warfarin 3 MG tablet albuterol sulfate HFA 108 (90 Base) MCG/ACT inhaler Inhale 2 puffs into the lungs 4 (four) times daily. ALPRAZolam 1 MG tablet nightly at bedtime. benazepril 10 MG tablet Take by mouth nightly at bedtime. lisinopril 20 MG tablet Take 1 tablet (20 mg total) by mouth daily. 30 tablet 0 Current Facility-Administered Medications: acetaminophen (TYLENOL) tablet 650 mg, 650 mg, Oral, Q6H PRN, Codie Swift NP, 650 mg at 05/27/23 2208 aspirin chewable tablet 81 mg, 81 mg, Oral, Daily, Julio Cesar Curry MD, 81 mg at 05/28/23 0919 atorvastatin (LIPITOR) tablet 20 mg, 20 mg, Oral, Daily, Julio Cesar Curry MD, 20 mg at 05/27/23 1438 furosemide (LASIX) tablet 20 mg, 20 mg, Oral, Daily, Paras Sandoval MD lisinopril (PRINIVIL) tablet 20 mg, 20 mg, Oral, Daily, Paras Sandoval MD, 20 mg at 05/28/23 1330 nitroglycerin (NITROSTAT) SL tablet 0.4 mg, 0.4 mg, Sublingual, Q5 Min PRN, Julio Cesar Curry MD normal saline 0.9 % flush 3-10 mL, 3-10 mL, Intravenous, Q8H, Julio Cesar Curry MD, 10 mL at 05/28/23 1333 normal saline 0.9 % flush 3-10 mL, 3-10 mL, Intravenous, PRN, Julio Cesar Curry MD pantoprazole EC (PROTONIX) tablet 40 mg, 40 mg, Oral, Daily, Paras Sandoval MD, 40 mg at 05/28/23 1330 psyllium (METAMUCIL) 58.12 % packet 1 packet, 1 packet, Oral, Daily, Paras Sandoval MD, 1 packet at 05/28/23 1330 Allergies Allergies Allergen Reactions Prednisone Blurred vision Past History Past Medical History: Diagnosis Date CAD (coronary artery disease) COVID-19 01/2021 DVT (deep venous thrombosis) ([facility]) left upper extremity HTN (hypertension) Mild aortic stenosis Non-rheumatic mitral regurgitation PAD (peripheral artery disease) ([facility]) Polio Past Surgical History: Procedure Laterality Date CARDIAC STENTS VASCULAR SURGERY iliac Social History Tobacco Use Smoking status: Never Smokeless tobacco: Never Family History Family history unknown: Yes Physical Examination Vitals: 05/28/23 1007 BP: (!) 141/45 Pulse: 90 Resp: Temp: 98.1 ??F (36.7 ??C) SpO2: 92% Physical exam: General: Awake, alert, in no acute distress Heart: Regular rate and rhythm, normal S1 and S2, no murmurs/rubs/gallops Lungs: No respiratory distress, Clear to auscultation bilaterally Extremities: No pedal edema Neuro: Alert and oriented x 3 Diagnosis Syncope with prodrome - likely neurocardiogenic, will ruled out arrhythmic cause Recommendations Continue telemetry monitoring while inpatient. We will plan to discharge her with a 30 day MCT. I advised her to maintain a high fluid intake to prevent recurrent episodes. I also advised her to lay down immediately if she feels her prodrome of symptoms. I will plan to follow her in clinic as outpatient in 6 weeks. Signed EVERARDO SMITH MD 05/28/2023 L FILE CLERK documented in this encounter Nursing Notes * Cynthia Ferraro RN - 05/30/2023 3:47 AM CSTSummary: warfarin dose - tag writer went in patient room to assess patient and patient asked if she had her warfarin - tag writer checked the computer and saw it was given at 1740 - tag writer informed patient and patient said she does remember taking them, tag writer advised patient that since it is documented as given tag writer has to go by what is documented - when DISPATCHER SERVICE went in her room to give her night pills, patient told DISPATCHER SERVICE that she did not get her warfarin because she dropped it on the floor - DISPATCHER SERVICE did see a tablet on the floor but both of us are unable to ID the medication to be warfarin - escalated the matter to technology education instructor as patient said can she get one more dose\ - technology education instructor said she will not reorder but to inform pharmacist - pharmacist was alerted about the situation - pharmacist came up and tried to ID the tablet but still it is non conclusive - pharmacist said he will bring the medication down to ID and came back up unable to verify that itis the warfarin - pharmacist then said it is not safe to give another dose as there is risk to double it as we cannot confirm that the tablet on the floor was the warfarin that was administered/ signed at 1740 - as per pharmacist, will await morning draw and then dose her from there - patient was educated, as patient said she did not inform the day nurse she dropped the medication L FILE CLERK documented in this encounter Plan of Treatment Scheduled Orders Name Type Priority Associated Diagnoses Orde r Schedule Event Recorder (ECG) Up To 30 Days Complete (Performed at [facility]) EKG-NonRad Routine Syncope, unspecified syncope type 1 Occurrences starting 05/30/2023 until 05/30/2024 documented as of this encounter Procedures Procedure Name Priority Date/Time Associated Diagnosis Comments PROTHROMBIN TIME, VENOUS Routine 05/30/2023 4:35 AM LEGAL FILE CLERK COMPREHENSIVE METABOLIC PANEL Routine 05/30/2023 4:35 AM LEGAL FILE CLERK CBC W/DIFF AUTOMATED Routine 05/30/2023 4:35 AM LEGAL FILE CLERK PROTHROMBIN TIME, VENOUS Routine 05/29/2023 8:13 AM LEGAL FILE CLERK COMPREHENSIVE METABOLIC PANEL Routine 05/29/2023 5:11 AM LEGAL FILE CLERK CBC W/DIFF AUTOMATED Routine 05/29/2023 5:11 AM LEGAL FILE CLERK CT ABD+PEL WO CON Today 05/28/2023 3:4 5 PM LEGAL FILE CLERK USE ECHOCARDIOGRAM Today 05/28/2023 8: 23 AM LEGAL FILE CLERK PROTHROMBIN TIME, VENOUS Routine 05/28/2023 5:19 AM LEGAL FILE CLERK BASIC METABOLIC PANEL Routine 05/28/2023 5:19 AM LEGAL FILE CLERK CBC W/DIFF AUTOMATED Routine 05/28/2023 5:19 AM LEGAL FILE CLERK PROTHROMBIN TIME, VENOUS Routine 05/27/2023 2:42 PM LEGAL FILE CLERK COMPREHENSIVE METABOLIC PANEL Routine 05/27/2023 2:42 PM LEGAL FILE CLERK CBC W/DIFF AUTOMATED Routine 05/27/2023 2:42 PM LEGAL FILE CLERK ECG 12-LEAD Routine 05/27/2023 2:28 PM LEGAL FILE CLERK documented in this encounter Results * (ABNORMAL) COMPREHENSIVE METABOLIC PANEL (05/30/2023 4:35 AM LEGAL FILE CLERK) SODIUM S/P/B 137 136 - 145 MMOL/L 05/30/2023 5:38 AM LEGAL FILE CLERK [facility] POTASSIUM S/P/B 3.5 3.5 - 5.1 MMOL/L 05/30/2023 5:38 AM LEGAL FILE CLERK [facility] CHLORIDE S/P/B 105 98 - 107 MMOL/L 05/30/2023 5:38 AM LEGAL FILE CLERK [facility] CO2 24.5 21.0 - 32.0 MMOL/L 05/30/2023 5:38 AM LEGAL FILE CLERK [facility] GLUCOSE 109(H) 74 - 106 MG/DL 05/30/2023 5:38 AM LEGAL FILE CLERK [facility] BUN 10 7 - 18 MG/DL 05/30/2023 5:38 AM [facility] CREATININE S/P/B 0.72 0.55 - 1.02 MG/DL 05/30/2023 5:38 AM [facility] CALCIUM S/P/B 8.7 8.5 - 10.1 MG/DL 05/30/2023 5:38 AM [facility] BILIRUBIN TOTAL S/P/B 0.9 0.2 - 1.0 MG/DL 05/30/2023 5:38 AM [facility] ALKALINE PHOSPHATASE S/P/B 65 55 - 142 U/L 05/30/2023 5:38 AM [facility] AST 18 15 - 37 U/L 05/30/2023 5:38 AM [facility] ALT 11(L) 13 - 56 U/L 05/30/2023 5:38 AM [facility] TOTAL PROTEIN S/P/B 5.8(L) 6.4 - 8.2 G/DL 05/30/2023 5:38 AM [facility] ALBUMIN S/P/B 2.5(L) 3.4 - 5.0 G/DL 05/30/2023 5:38 AM [facility] ANION GAP 7.5 5.0 - 15.0 MMOL/L 05/30/2023 5:38 AM [facility] OSMOLALITY (CALC) 284 MOSM/KG 023 5:38 AM [facility] Comment:REFERENCE RANGE NOT ESTABLISHED GFR ESTIMATE 82(L) >90 ML/MIN/1. 73 M2 05/30/2023 5:38 AM [facility] GFR NOTES GFR REFERENCE S: 05/30/2023 5:38 AM [facility] Comment: THE ESTIMATED GFR IS CALCULATED USING THE 2020 CKD-EPI EQUATION. THE FOLLOWING CATEGORIES FOR GRADING RENAL FUNCTION ARE RECOMMENDED BY THE INTERNATIONAL SOCIETY OF NEPHROLOGY (KDIGO 2012 CLINICAL PRACTICE GUIDELINE). G1,NORMAL OR HIGH: >89 ml/min/1.73 m2 G2,MILDLY DECREASED: 60-89 ml/min/1.73 m2 G3A,MILDLY TO MODERATELY DECREASED: 45-59 ml/min/1.73 m2 G3B,MODERATELY TO SEVERELY DECREASED: 30-44 ml/min/1.73 m2 G4,SEVERELY DECREASED: 15-29 ml/min/1.73 m2 G5,KIDNEY FAILURE: <15 ml/min/1.73 m2 05/30/2023 4:35 AM LEGAL FILE CLERK us Paras Sandoval MD LABORATORY Final Result [facility] [address] [place] [address], [id number] * (ABNORMAL) CBC W/DIFF AUTOMATED (05/30/2023 4:35 AM LEGAL FILE CLERK) WBC 5.01 4.00 - 10.80 x10'3/uL 05/30/2023 4:58 AM LEGAL FILE CLERK [facility] RBC 3.85(L) 4.10 - 5.40 x10'6/uL 05/30/2023 4:58 AM LEGAL FILE CLERK [facility] HGB 11.5(L) 12.0 - 16.0 G/DL 05/30/2023 4:58 AM LEGAL FILE CLERK [facility] HCT 33.9(L) 36.0 - 47.0 % 05/30/2023 4:58 AM LEGAL FILE CLERK [facility] MCV 88.1 78.0 - 100.0 FL 05/30/2023 4:58 AM LEGAL FILE CLERK [facility] MCH 29.9 27.0 - 31.0 PG 05/30/2023 4:58 AM LEGAL FILE CLERK [facility] MCHC 33.9 33.0 - 36.0 G/DL 05/30/2023 4:58 AM LEGAL FILE CLERK [facility] RDW 13.6 11.5 - 14.5 % 05/30/2023 4:58 AM LEGAL FILE CLERK [facility] PLT 134(L) 150 - 350 x10'3/uL 05/30/2023 4:58 AM [facility] MPV 12.3(H) 7.4 - 10.4 FL 05/30/2023 4:58 AM [facility] ABS. NEUTROPHILS 1.79 1.60 - 8.30 x10'3/uL 05/30/2023 4:58 AM LEGAL FILE CLERK [facility] ABS. LYMPHOCYTES 1.98 0.80 - 4.70 x10'3/uL 05/30/2023 4:58 AM [facility] ABS. MONOCYTES 0.95 0.00 - 1.50 x10'3/uL 05/30/2023 4:58 AM [facility] ABS. EOSINOPHILS 0.23 0.00 - 0.40 x10'3/uL 05/30/2023 4:58 AM [facility] ABS. BASOPHILS 0.04 0.00 - 0.20 x10'3/uL 05/30/2023 4:58 AM [facility] ABS. IMMATURE GRANULOCYTES 0.02 0.00 - 0.03 x10'3/uL 05/30/2023 4:58 AM [facility] ABS. NUCLEATED RBC'S 0.00 0.0 x10'3/uL 05/30/2023 4:58 AM [facility] 05/30/2023 4:35 AM LEGAL FILE CLERK us Paras Sandoval MD LABORATORY Final Result [facility] [address] [place] [address], [id number] * (ABNORMAL) PROTIME/INR, VENOUS (05/30/2023 4:35 AM LEGAL FILE CLERK) PROTIME 19.5(H) 9.4 - 12.5 SEC 05/30/2023 5:23 AM LEGAL FILE CLERK [facility] INR 1.7(H) 0.8 - 1.1 05/30/2023 5:23 AM LEGAL FILE CLERK [facility] 05/30/2023 4:35 AM LEGAL FILE CLERK us Paras Sandoval MD LABORATORY Final Result Performing Organization Address [facility]/ZIP Co de Phone Number [facility] [address] [place] [address], [id number] * (ABNORMAL) PROTIME/INR, VENOUS (PROTHROMBIN TIME) (05/29/2023 8:13 AM LEGAL FILE CLERK) PROTIME 21.5(H) 9.4 - 12.5 SEC 05/29/2023 10:17 AM LEGAL FILE CLERK [facility] INR 1.9(H) 0.8 - 1.1 05/29/2023 10:17 AM LEGAL FILE CLERK [facility] 05/29/2023 8:13 AM LEGAL FILE CLERK us Paras Sandoval MD LABORATORY Final Result Performing Organization Address [facility] Co de Phone Number [facility] [address] [place] [address], [id number] * (ABNORMAL) COMPREHENSIVE METABOLIC PANEL (05/29/2023 5:11 AM LEGAL FILE CLERK) SODIUM S/P/B 140 136 - 145 MMOL/L 05/29/2023 6:11 AM LEGAL FILE CLERK [facility] POTASSIUM S/P/B 3.8 3.5 - 5.1 MMOL/L 05/29/2023 6:11 AM LEGAL FILE CLERK [facility] CHLORIDE S/P/B 109(H) 98 - 107 MMOL/L 05/29/2023 6:11 AM LEGAL FILE CLERK [facility] CO2 26.1 21.0 - 32.0 MMOL/L 05/29/2023 6:11 AM [facility] GLUCOSE 95 74 - 106 MG/DL 05/29/2023 6:11 AM [facility] BUN 6(L) 7 - 18 MG/DL 05/29/2023 6:11 AM [facility] CREATININE S/P/B 0.73 0.55 - 1.02 MG/DL 05/29/2023 6:11 AM [facility] CALCIUM S/P/B 8.3(L) 8.5 - 10.1 MG/DL 05/29/2023 6:11 AM [facility] BILIRUBIN TOTAL S/P/B 1.2(H) 0.2 - 1.0 MG/DL 05/29/2023 6:11 AM [facility] ALKALINE PHOSPHATASE S/P/B 66 55 - 142 U/L 05/29/2023 6:11 AM [facility] AST 16 15 - 37 U/L 05/29/2023 6:11 AM [facility] ALT 14 13 - 56 U/L 05/29/2023 6:11 AM [facility] TOTAL PROTEIN S/P/B 5.6(L) 6.4 - 8.2 G/DL 05/29/2023 6:11 AM [facility] ALBUMIN S/P/B 2.4(L) 3.4 - 5.0 G/DL 05/29/2023 6:11 AM [facility] ANION GAP 4.9(L) 5.0 - 15.0 MMOL/L 05/29/2023 6:11 AM [facility] OSMOLALITY (CALC) 287 MOSM/KG 023 6:11 AM [facility] Comment:REFERENCE RANGE NOT ESTABLISHED GFR ESTIMATE 81(L) >90 ML/MIN/1. 73 M2 05/29/2023 6:11 AM [facility] GFR NOTES GFR REFERENCE S: 05/29/2023 6:11 AM [facility] Comment: THE ESTIMATED GFR IS CALCULATED USING THE 2020 CKD-EPI EQUATION. THE FOLLOWING CATEGORIES FOR GRADING RENAL FUNCTION ARE RECOMMENDED BY THE INTERNATIONAL SOCIETY OF NEPHROLOGY (KDIGO 2012 CLINICAL PRACTICE GUIDELINE). G1,NORMAL OR HIGH: >89 ml/min/1.73 m2 G2,MILDLY DECREASED: 60-89 ml/min/1.73 m2 G3A,MILDLY TO MODERATELY DECREASED: 45-59 ml/min/1.73 m2 G3B,MODERATELY TO SEVERELY DECREASED: 30-44 ml/min/1.73 m2 G4,SEVERELY DECREASED: 15-29 ml/min/1.73 m2 G5,KIDNEY FAILURE: <15 ml/min/1.73 m2 05/29/2023 5:11 AM LEGAL FILE CLERK Paras Sandoval MD LABORATORY Final Result [facility] [address] [place] [address], [id number] * (ABNORMAL) CBC W/DIFF AUTOMATED (05/29/2023 5:11 AM LEGAL FILE CLERK) WBC 4.84 4.00 - 10.80 x10'3/uL 05/29/2023 5:49 AM LEGAL FILE CLERK [facility] RBC 3.81(L) 4.10 - 5.40 x10'6/uL 05/29/2023 5:49 AM LEGAL FILE CLERK [facility] HGB 11.3(L) 12.0 - 16.0 G/DL 05/29/2023 5:49 AM LEGAL FILE CLERK [facility] HCT 34.6(L) 36.0 - 47.0 % 05/29/2023 5:49 AM LEGAL FILE CLERK [facility] MCV 90.8 78.0 - 100.0 FL 05/29/2023 5:49 AM LEGAL FILE CLERK [facility] MCH 29.7 27.0 - 31.0 PG 05/29/2023 5:49 AM LEGAL FILE CLERK [facility] MCHC 32.7(L) 33.0 - 36.0 G/DL 05/29/2023 5:49 AM [facility] RDW 14.0 11.5 - 14.5 % 05/29/2023 5:49 AM [facility] PLT 139(L) 150 - 350 x10'3/uL 05/29/2023 5:49 AM [facility] MPV 12.5(H) 7.4 - 10.4 FL 05/29/2023 5:49 AM LEGAL FILE CLERK [facility] ABS. NEUTROPHILS 1.71 1.60 - 8.30 x10'3/uL 05/29/2023 5:49 AM [facility] ABS. LYMPHOCYTES 2.01 0.80 - 4.70 x10'3/uL 05/29/2023 5:49 AM [facility] ABS. MONOCYTES 0.89 0.00 - 1.50 x10'3/uL 05/29/2023 5:49 AM LEGAL FILE CLERK [facility] ABS. EOSINOPHILS 0.17 0.00 - 0.40 x10'3/uL 05/29/2023 5:49 AM [facility] ABS. BASOPHILS 0.05 0.00 - 0.20 x10'3/uL 05/29/2023 5:49 AM [facility] ABS. IMMATURE GRANULOCYTES 0.01 0.00 - 0.03 x10'3/uL 05/29/2023 5:49 AM LEGAL FILE CLERK [facility] ABS. NUCLEATED RBC'S 0.00 0.0 x10'3/uL 05/29/2023 5:49 AM [facility] 05/29/2023 5:11 AM LEGAL FILE CLERK us Paras Sandoval MD LABORATORY Final Result [facility] [address] [place] [address], [id number] * CT ABD+PEL WO CON (05/28/2023 3:45 PM LEGAL FILE CLERK) Anatomical Region Laterality Modality Abdomen Computed Tomogra phy 05/28/2023 4:42 PM LEGAL FILE CLERK Impressions 05/28/2023 4:48 PM LEGAL FILE CLERK Impression: 1. Increased density of the urine within the urinary bladder without other bladder abnormality. This could be related to excretion of contrast from a previous exam elsewhere, if there is corresponding history. Hematuria or dehydration could result in similar appearance. 2. No other acute abnormality identified in the abdomen or pelvis. Ordered By: PARAS SANDOVAL Interpreted By: Checo Morin MD, 05/28/2023 4:42 PM Narrative 05/28/2023 4:48 PM LEGAL FILE CLERK CT abdomen and pelvis without contrast: 05/28/2023 4:42 PM INDICATION: ??Acute nonlocalized abdominal pain. Supratherapeutic INR. TECHNIQUE: Oral contrast was administered. Without the use of IV contrast, multidetector CT is performed through the abdomen and pelvis. ??Multiplanar images are created and reviewed. A dose lowering technique was used for this procedure, which may include, but is not limited to, dose reduction techniques, automated exposure control, the use of a iterative reconstruction, and ALARA (as low as reasonably achievable)/image gently techniques. COMPARISON: None. FINDINGS: Lower Chest: Heart size is normal. There are diffuse aortic and coronary artery calcifications. No pleural or pericardial effusion is identified. Mild scarring is noted in the right lung base. Abdomen: Liver: Detection of focal lesions may be diminished in the absence of IV contrast. No focal abnormality or intrahepatic biliary dilatation identified. Gallbladder and biliary tree: The ??common bile duct is nondilated. The gall bladder is normal. Pancreas: Normal unenhanced appearance. Spleen: Normal. Adrenal glands: Normal. Kidneys: There is no nephrolithiasis or hydronephrosis. There is a prominent simple-appearing cyst in the interpolar right kidney. Given simple appearance, this does not require specific additional follow-up based on ACR guidelines. Bowel: There is no evidence of bowel obstruction. Enteric contrast reaches the proximal ascending colon. A short, normal appendix is identified. There is no bowel wall thickening or evidence of inflammation. Extensive sigmoid diverticulosis is noted without evidence of acute diverticulitis. Peritoneum: There is no ascites, pneumoperitoneum, or adenopathy. Retroperitoneum: Aorta is normal in caliber with moderate diffuse atherosclerotic change. There is a left common iliac stents, patency not assessed on unenhanced exam. There is no retroperitoneal adenopathy. Pelvis: There is increased density of urine within the urinary bladder. Bladder is otherwise unremarkable. Uterus is surgically absent. There are no adnexal masses. Rectum and perirectal fat are unremarkable. There is no pelvic adenopathy or free fluid. No destructive osseus lesion is identified. Procedure Note Checo Morin MD - 05/28/2023 CT abdomen and pelvis without contrast: 05/28/2023 4:42 PM INDICATION: Acute nonlocalized abdominal pain. Supratherapeutic INR. TECHNIQUE: Oral contrast was administered. Without the use of IV contrast,multidetector CT is performed through the abdomen and pelvis. Multiplanarimages are created and reviewed. A dose lowering technique was used forthis procedure, which may include, but is not limited to, dose reductiontechniques, automated exposure control, the use of a iterativereconstruction, and ALARA (as low as reasonably achievable)/image gentlytechniques. COMPARISON: None. FINDINGS: Lower Chest: Heart size is normal. There are diffuse aortic and coronaryartery calcifications. No pleural or pericardial effusion is identified.Mild scarring is noted in the right lung base. Abdomen: Liver: Detection of focal lesions may be diminished in the absence of IVcontrast. No focal abnormality or intrahepatic biliary dilatationidentified. Gallbladder and biliary tree: The common bile duct is nondilated. Thegall bladder is normal. Pancreas: Normal unenhanced appearance. Spleen: Normal. Adrenal glands: Normal. Kidneys: There is no nephrolithiasis or hydronephrosis. There is aprominent simple-appearing cyst in the interpolar right kidney. Givensimple appearance, this does not require specific additional follow-upbased on ACR guidelines. Bowel: There is no evidence of bowel obstruction. Enteric contrast reachesthe proximal ascending colon. A short, normal appendix is identified.There is no bowel wall thickening or evidence of inflammation. Extensivesigmoid diverticulosis is noted without evidence of acute diverticulitis. Peritoneum: There is no ascites, pneumoperitoneum, or adenopathy. Retroperitoneum: Aorta is normal in caliber with moderate diffuseatherosclerotic change. There is a left common iliac stents, patency notassessed on unenhanced exam. There is no retroperitoneal adenopathy. Pelvis: There is increased density of urine within the urinary bladder. Bladder isotherwise unremarkable. Uterus is surgically absent. There are no adnexalmasses. Rectum and perirectal fat are unremarkable. There is no pelvicadenopathy or free fluid. No destructive osseus lesion is identified. Impression: 1. Increased density of the urine within the urinary bladder without otherbladder abnormality. This could be related to excretion of contrast from aprevious exam elsewhere, if there is corresponding history. Hematuria ordehydration could result in similar appearance. 2. No other acute abnormality identified in the abdomen or pelvis. Ordered By: PARAS SANDOVAL Interpreted By: Checo Morin MD, 05/28/2023 4:42 PM us Paras Sandoval MD CT Final Result * USE ECHOCARDIOGRAM (05/28/2023 8:23 AM LEGAL FILE CLERK) Anatomical Region Laterality Modality Cardiac Echocardiogram 05/28/2023 7:57 AM LEGAL FILE CLERK Narrative 05/28/2023 3:34 PM LEGAL FILE CLERK ?Echocardiography Report Pat.Name: ??ENMA GARZA ?Pat.ID: ?[id number] ? St.Date: ?? 05/28/2023 ? Refer.MD: ??[id number] IKER ESPINOZA L ? EWDPROV ?EWDPROV Exam Time: 7:57:00 AM ? Study Type:ECHO WITH CARDIAC DOPPLER COMP Height: ?165 cm ?Weight: ?68 kg ? BSA: ? 1.75 m2 ?Age: ??1940,82Y ? Sex: ? F ? BP: ?157/56 ? HR: ?70 bpm ?Sonogrphr: Jada, Arpit RDCS ? Pat. Stat.:Inpatient ? Room: ?1116 ? CPT - 4: ?66080 ? Reason for Study:syncope ? Procedures: 2D, M-mode, Doppler, Color Flow ++++++++++++++++++++++++++++++++++++ SUMMARY: ++++++++++++++++++++++++++++++++++++ The left ventricular systolic function is hyperdynamic. Estimated left ventricular ejection fraction is >70%. Mild intracavity gradient, 28 mmHg. Mild to moderate aortic valve stenosis. The peak velocity across the aortic valve measures 2.85m/sec with a peak gradient of 33mmHg and a mean gradient of 24mmHg. The calculated aortic valve area is 1.3cm2. Mild mitral regurgitation. Mild mitral valve stenosis. The mean gradient across the mitral valve is 5mmHg at a heart rate of 78bpm. Estimated right atrial pressure of 3 mmHg. ++++++++++++++++++++++++++++++++++++ FINDINGS: ++++++++++++++++++++++++++++++++++++ LV: ? The left ventricular size is normal. The left ventricular ?systolic function is hyperdynamic. The calculated ejection ?fraction is 81%. Estimated left ventricular ejection ?fraction is >70%. Mild intracavity gradient. RV: ? The right ventricle size is normal. The right ventricular ?function is normal. LA: ? The left atrial volume is normal ( less than 34 ml/M2). RA: ? The right atrial size is normal. LAY: ? No evidence of pericardial effusion. PA: ? Estimated right atrial pressure of 3 mmHg. Unable to ?reliably quantitate pulmonary systolic pressure. SVn: ?Inferior vena cava is not assessable. Other: ?Technically difficult exam due to body habitus. AV: ? The aortic valve is trileaflet. Mild to moderate aortic ?valve stenosis. The peak velocity across the aortic valve ?measures 2.85m/sec with a peak gradient of 33mmHg and a mean ?gradient of 24mmHg. The calculated aortic valve area is ?1.3cm2. No evidence of aortic valve regurgitation. Aortic ?valve calcification with reduced systolic leaflet excursion. ?Dimensionless index of 0.4. MV: ? Mild mitral regurgitation. Mild mitral valve stenosis. Mild ?to moderately calcified anterior and posterior mitral ?annulus. Moderate calcification of mitral valve leaflets. ?The mean gradient across the mitral valve is 5mmHg at a ?heart rate of 78bpm. The mitral valve area by continuity ?equation is 1.95cm2. PV: ? No evidence of pulmonic valve stenosis. No evidence of ?pulmonic regurgitation. TV: ? No evidence of tricuspid regurgitation. No evidence of ?tricuspid valve stenosis. ++++++++++++++++++++++++++++++++++++ MEASUREMENTS: ++++++++++++++++++++++++++++++++++++ ?DOPPLER LVOT ?? LVOTpkPG ? 5 mmHg ?LVOTmnPG ? 3 mmHg LVOTpkVel ?117 cm/s (70-110)* LVOT SV ? 79 ml ?? LVOT TVI ?24.3 cm ? AV Forward Flow AV TVI ?58.4 cm ?AV pkPG ? 32 mmHg AV pkVel ? 282 cm/s (100-170)+* Area (TVI) ?1.35 cm2 ??(3-5)* AV mnVel ? 230 cm/s ?Area (Tony) ?1.34 cm2 ??(3-5)* AV mnPG ? 23 mmHg ? MV Forward Flow MV DeTm ?301 msec ?MV E/A ? 0.6 ? MV mnPG ?5 mmHg ?MV pkE ?95.2 cm/s (60-130) MV pkPG ? 14 mmHg ?MV pkA ? 162 cm/s Lat E' ?? Lat e ? 5.77 cm/s ? Lat E/E' ?? Lat E/e ? 16.5 ? Med E' ?? Med e ? 4.74 cm/s ? Med E/E' ?? Med E/e ? 20.1 ? Aortic Valve ?? Aortic Valve Ar ??0.77 ?Aortic Valve Ve ??0.41 ? AV DI ?? Value ?0.4 ? CISCO (VTI) Index ?? Value ? 0.77 ? LV Mass 2D ?? Value ?119 g ? LV Mass [id number] ?? Value ? 68 g/m2 ? RA Volume ?? Atrial Law ?? 3.95 cm ? Atrial Law ?? 11.5 cm2 Atrial Law ?? 27.7 ml ?2D Left Ventricle ?? LVIDd ? 3.13 cm ?? (3.6-5.2)* LV EF(Bi-Plane) ??81.2 % ?(55-75)* LVIDs ? 1.96 cm ?? (2.3-3.9)* LVPW ?? LVPWd ? 1.12 cm ? Ventricular Septum ?? IVSd ?1.32 cm ? Left Atrium ?? LA a-p ?2.62 cm ?? (2.8-3.4)* LVOT ?? LVOT ?2.03 cm ? Ratios ?? IVS LA Biplane LAVol I BP ?20.9 ml/m2 ? Right Ventricle ?? Right Ventricle ??2.63 cm ? Right Ventricul ??4.86 cm2 Right Ventricul ?? 7.2 cm2 ?Right Ventricul ??32.5 % ?MMODE Aorta ?? Ao Rt ?3 cm ?? (2-3.7) ?? <Electronic Signature> 05/28/2023 03:34 PM Gene Toussaint M.D. Procedure Note Johnny Sherman, - 05/28/2023 Echocardiography Report Pat.Name: ENMA GARZA Pat.ID: [id number] .Date: 05/28/2023 Refer.MD: [id number] IKER Novak EWDPROV EWDPROV Exam Time: 7:57:00 AM Study Type:ECHO WITH CARDIAC DOPPLER COMP Height: 165 cm Weight: 68 kg BSA: 1.75 m2 Age: 5 1940,82Y Sex: F BP: 157/56 HR: 70 bpm Sonogrphr: Arpit Elias [facility] Pat. Stat.:Inpatient Room: 1116 CPT - 4: 19505 Reason for Study:syncope Procedures: 2D, M-mode, Doppler, Color Flow ++++++++++++++++++++++++++++++++++++ SUMMARY: ++++++++++++++++++++++++++++++++++++ The left ventricular systolic function is hyperdynamic. Estimated left ventricular ejection fraction is >70%. Mild intracavity gradient, 28 mmHg. Mild to moderate aortic valve stenosis. The peak velocity across the aortic valve measures 2.85m/sec with a peak gradient of 33mmHg and a mean gradient of 24mmHg. The calculated aortic valve area is 1.3cm2. Mild mitral regurgitation. Mild mitral valve stenosis. The mean gradient across the mitral valve is 5mmHg at a heart rate of 78bpm. Estimated right atrial pressure of 3 mmHg. ++++++++++++++++++++++++++++++++++++ FINDINGS: ++++++++++++++++++++++++++++++++++++ LV: The left ventricular size is normal. The left ventricular systolic function is hyperdynamic. The calculated ejection fraction is 81%. Estimated left ventricular ejection fraction is >70%. Mild intracavity gradient. RV: The right ventricle size is normal. The right ventricular function is normal. LA: The left atrial volume is normal ( less than 34 ml/M2). RA: The right atrial size is normal. LAY: No evidence of pericardial effusion. PA: Estimated right atrial pressure of 3 mmHg. Unable to reliably quantitate pulmonary systolic pressure. SVn: Inferior vena cava is not assessable. Other: Technically difficult exam due to body habitus. AV: The aortic valve is trileaflet. Mild to moderate aortic valve stenosis. The peak velocity across the aortic valve measures 2.85m/sec with a peak gradient of 33mmHg and a mean gradient of 24mmHg. The calculated aortic valve area is 1.3cm2. No evidence of aortic valve regurgitation. Aortic valve calcification with reduced systolic leaflet excursion. Dimensionless index of 0.4. MV: Mild mitral regurgitation. Mild mitral valve stenosis. Mild to moderately calcified anterior and posterior mitral annulus. Moderate calcification of mitral valve leaflets. The mean gradient across the mitral valve is 5mmHg at a heart rate of 78bpm. The mitral valve area by continuity equation is 1.95cm2. PV: No evidence of pulmonic valve stenosis. No evidence of pulmonic regurgitation. TV: No evidence of tricuspid regurgitation. No evidence of tricuspid valve stenosis. ++++++++++++++++++++++++++++++++++++ MEASUREMENTS: ++++++++++++++++++++++++++++++++++++ DOPPLER LVOT LVOTpkPG 5 mmHg LVOTmnPG 3 mmHg LVOTpkVel 117 cm/s (70-110)* LVOT SV 79 ml LVOT TVI 24.3 cm AV Forward Flow AV TVI 58.4 cm AV pkPG 32 mmHg AV pkVel 282 cm/s (100-170)+* Area (TVI) 1.35 cm2 (3-5)* AV mnVel 230 cm/s Area (Tony) 1.34 cm2 (3-5)* AV mnPG 23 mmHg MV Forward Flow MV DeTm 301 msec MV E/A 0.6 MV mnPG 5 mmHg MV pkE 95.2 cm/s (60-130) MV pkPG 14 mmHg MV pkA 162 cm/s Lat E' Lat e 5.77 cm/s Lat E/E' Lat E/e 16.5 Med E' Med e 4.74 cm/s Med E/E' Med E/e 20.1 Aortic Valve Aortic Valve Ar 0.77 Aortic Valve Ve 0.41 AV DI Value 0.4 CISCO (VTI) Index Value 0.77 LV Mass 2D Value 119 g LV Mass [id number] Value 68 g/m2 RA Volume Atrial Law 3.95 cm Atrial Law 11.5 cm2 Atrial Law 27.7 ml 2D Left Ventricle LVIDd 3.13 cm (3.6-5.2)* LV EF(Bi-Plane) 81.2 % (55-75)* LVIDs 1.96 cm (2.3-3.9)* LVPW LVPWd 1.12 cm Ventricular Septum IVSd 1.32 cm Left Atrium LA a-p 2.62 cm (2.8-3.4)* LVOT LVOT 2.03 cm Ratios IVS LA Biplane LAVol I BP 20.9 ml/m2 Right Ventricle Right Ventricle 2.63 cm Right Ventricul 4.86 cm2 Right Ventricul 7.2 cm2 Right Ventricul 32.5 % MMODE Aorta Ao Rt 3 cm (2-3.7) <Electronic Signature> 05/28/2023 03:34 PM Gene Toussaint M.D. Julio Cesar Curry MD ECHO Final Result * (ABNORMAL) BASIC METABOLIC PANEL (05/28/2023 5:19 AM LEGAL FILE CLERK) SODIUM S/P/B 142 136 - 145 MMOL/L 05/28/2023 6:10 AM LEGAL FILE CLERK [facility] POTASSIUM S/P/B 3.1(L) 3.5 - 5.1 MMOL/L 05/28/2023 6:10 AM [facility] CHLORIDE S/P/B 110(H) 98 - 107 MMOL/L 05/28/2023 6:10 AM [facility] CO2 27.0 21.0 - 32.0 MMOL/L 05/28/2023 6:10 AM [facility] GLUCOSE 114(H) 74 - 106 MG/DL 05/28/2023 6:10 AM [facility] BUN 6(L) 7 - 18 MG/DL 05/28/2023 6:10 AM [facility] CREATININE S/P/B 0.64 0.55 - 1.02 MG/DL 05/28/2023 6:10 AM [facility] CALCIUM S/P/B 8.4(L) 8.5 - 10.1 MG/DL 05/28/2023 6:10 AM [facility] ANION GAP 5.0 5.0 - 15.0 MMOL/L 05/28/2023 6:10 AM [facility] OSMOLALITY (CALC) 292 MOSM/KG 023 6:10 AM [facility] Comment:REFERENCE RANGE NOT ESTABLISHED GFR ESTIMATE 87(L) >90 ML/MIN/1. 73 M2 05/28/2023 6:10 AM [facility] GFR NOTES GFR REFERENCE S: 05/28/2023 6:10 AM [facility] Comment: THE ESTIMATED GFR IS CALCULATED USING THE 2020 CKD-EPI EQUATION. THE FOLLOWING CATEGORIES FOR GRADING RENAL FUNCTION ARE RECOMMENDED BY THE INTERNATIONAL SOCIETY OF NEPHROLOGY (KDIGO 2012 CLINICAL PRACTICE GUIDELINE). G1,NORMAL OR HIGH: >89 ml/min/1.73 m2 G2,MILDLY DECREASED: 60-89 ml/min/1.73 m2 G3A,MILDLY TO MODERATELY DECREASED: 45-59 ml/min/1.73 m2 G3B,MODERATELY TO SEVERELY DECREASED: 30-44 ml/min/1.73 m2 G4,SEVERELY DECREASED: 15-29 ml/min/1.73 m2 G5,KIDNEY FAILURE: <15 ml/min/1.73 m2 05/28/2023 5:19 AM LEGAL FILE CLERK us Julio Cesar Curry MD LABORATORY Final Result Performing Organization Address [facility] Co de Phone Number [facility] [address] [place] [address], [phone] * (ABNORMAL) PROTHROMBIN TIME, VENOUS (05/28/2023 5:19 AM LEGAL FILE CLERK) PROTIME 37.2(H) 9.4 - 12.5 SEC 05/28/2023 5:53 AM LEGAL FILE CLERK [facility] INR 3.2(H) 0.8 - 1.1 05/28/2023 5:53 AM [facility] 05/28/2023 5:19 AM LEGAL FILE CLERK us Julio Cesar Curry MD LABORATORY Final Result Performing Organization Address [facility] de Phone Number [facility] [address] [place] [address], [phone] * (ABNORMAL) CBC W/DIFF AUTOMATED (05/28/2023 5:19 AM LEGAL FILE CLERK) WBC 5.56 4.00 - 10.80 x10'3/uL 05/28/2023 5:47 AM [facility] RBC 3.89(L) 4.10 - 5.40 x10'6/uL 05/28/2023 5:47 AM [facility] HGB 11.5(L) 12.0 - 16.0 G/DL 05/28/2023 5:47 AM [facility] HCT 34.2(L) 36.0 - 47.0 % 05/28/2023 5:47 AM [facility] MCV 87.9 78.0 - 100.0 FL 05/28/2023 5:47 AM [facility] MCH 29.6 27.0 - 31.0 PG 05/28/2023 5:47 AM [facility] MCHC 33.6 33.0 - 36.0 G/DL 05/28/2023 5:47 AM [facility] RDW 14.1 11.5 - 14.5 % 05/28/2023 5:47 AM [facility] PLT 153 150 - 350 x10'3/uL 05/28/2023 5:47 AM [facility] MPV 12.3(H) 7.4 - 10.4 FL 05/28/2023 5:47 AM [facility] ABS. NEUTROPHILS 2.47 1.60 - 8.30 x10'3/uL 05/28/2023 5:47 AM [facility] ABS. LYMPHOCYTES 2.01 0.80 - 4.70 x10'3/uL 05/28/2023 5:47 AM [facility] ABS. MONOCYTES 0.87 0.00 - 1.50 x10'3/uL 05/28/2023 5:47 AM LEGAL FILE CLERK [facility] ABS. EOSINOPHILS 0.16 0.00 - 0.40 x10'3/uL 05/28/2023 5:47 AM [facility] ABS. BASOPHILS 0.04 0.00 - 0.20 x10'3/uL 05/28/2023 5:47 AM [facility] ABS. IMMATURE GRANULOCYTES 0.01 0.00 - 0.03 x10'3/uL 05/28/2023 5:47 AM LEGAL FILE CLERK [facility] ABS. NUCLEATED RBC'S 0.00 0.0 x10'3/uL 05/28/2023 5:47 AM [facility] 05/28/2023 5:19 AM LEGAL FILE CLERK Julio Cesar Curry MD LABORATORY Final Result [facility] [address] [place] [address], [phone] * (ABNORMAL) COMPREHENSIVE METABOLIC PANEL (05/27/2023 2:[address] [facility]) SODIUM S/P/B 146(H) 136 - 145 MMOL/L 05/27/2023 3:38 PM [facility] POTASSIUM S/P/B 3.4(L) 3.5 - 5.1 MMOL/L 05/27/2023 3:38 PM [facility] CHLORIDE S/P/B 113(H) 98 - 107 MMOL/L 05/27/2023 3:38 PM [facility] CO2 28.5 21.0 - 32.0 MMOL/L 05/27/2023 3:38 PM [facility] GLUCOSE 125(H) 74 - 106 MG/DL 05/27/2023 3:38 PM [facility] BUN 7 7 - 18 MG/DL 05/27/2023 3:38 PM [facility] CREATININE S/P/B 0.79 0.55 - 1.02 MG/DL 05/27/2023 3:38 PM [facility] CALCIUM S/P/B 8.7 8.5 - 10.1 MG/DL 05/27/2023 3:38 PM [facility] BILIRUBIN TOTAL S/P/B 0.4 0.2 - 1.0 MG/DL 05/27/2023 3:38 PM [facility] ALKALINE PHOSPHATASE S/P/B 75 55 - 142 U/L 05/27/2023 3:38 PM [facility] AST 20 15 - 37 U/L 05/27/2023 3:38 PM [facility] ALT 12(L) 13 - 56 U/L 05/27/2023 3:38 PM [facility] TOTAL PROTEIN S/P/B 6.2(L) 6.4 - 8.2 G/DL 05/27/2023 3:38 PM [facility] ALBUMIN S/P/B 2.7(L) 3.4 - 5.0 G/DL 05/27/2023 3:38 PM LEGAL FILE CLERK [facility] ANION GAP 4.5(L) 5.0 - 15.0 MMOL/L 05/27/2023 3:38 PM [facility] OSMOLALITY (CALC) 301 MOSM/KG 023 3:38 PM LEGAL FILE CLERK [facility] Comment:REFERENCE RANGE NOT ESTABLISHED GFR ESTIMATE 74(L) >90 ML/MIN/1. 73 M2 05/27/2023 3:38 PM LEGAL FILE CLERK [facility] GFR NOTES GFR REFERENCE S: 05/27/2023 3:38 PM [facility] Comment: THE ESTIMATED GFR IS CALCULATED USING THE 2020 CKD-EPI EQUATION. THE FOLLOWING CATEGORIES FOR GRADING RENAL FUNCTION ARE RECOMMENDED BY THE INTERNATIONAL SOCIETY OF NEPHROLOGY (KDIGO 2012 CLINICAL PRACTICE GUIDELINE). G1,NORMAL OR HIGH: >89 ml/min/1.73 m2 G2,MILDLY DECREASED: 60-89 ml/min/1.73 m2 G3A,MILDLY TO MODERATELY DECREASED: 45-59 ml/min/1.73 m2 G3B,MODERATELY TO SEVERELY DECREASED: 30-44 ml/min/1.73 m2 G4,SEVERELY DECREASED: 15-29 ml/min/1.73 m2 G5,KIDNEY FAILURE: <15 ml/min/1.73 m2 05/27/2023 2:42 PM LEGAL FILE CLERK Julio Cesar Curry MD LABORATORY Final Result [facility] [address] [place] [phone], [phone] * (ABNORMAL) PROTHROMBIN TIME, VENOUS (05/27/2023 2:42 PM LEGAL FILE CLERK) PROTIME 68.9(H) 9.4 - 12.5 SEC 05/27/2023 3:34 PM LEGAL FILE CLERK [facility] INR 5.8(HH) 0.8 - 1.1 05/27/2023 3:34 PM LEGAL FILE CLERK [facility] Comment: CRITICAL RESULT, SPECIMEN DATE, TIME WERE READ BACK BY [email or web address] 05.27.23 nathan 05/27/2023 2:42 PM LEGAL FILE CLERK Julio Cesar Curry MD LABORATORY Final Result [facility] [address] [place] [address], [phone] * (ABNORMAL) CBC W/DIFF AUTOMATED (05/27/2023 2:42 PM LEGAL FILE CLERK) WBC 5.69 4.00 - 10.80 x10'3/uL 05/27/2023 2:57 PM LEGAL FILE CLERK [facility] RBC 4.22 4.10 - 5.40 x10'6/uL 05/27/2023 2:57 PM LEGAL FILE CLERK [facility] HGB 12.6 12.0 - 16.0 G/DL 05/27/2023 2:57 PM LEGAL FILE CLERK [facility] HCT 38.3 36.0 - 47.0 % 05/27/2023 2:57 PM LEGAL FILE CLERK [facility] MCV 90.8 78.0 - 100.0 FL 05/27/2023 2:57 PM LEGAL FILE CLERK [facility] MCH 29.9 27.0 - 31.0 PG 05/27/2023 2:57 PM LEGAL FILE CLERK [facility] MCHC 32.9(L) 33.0 - 36.0 G/DL 05/27/2023 2:57 PM LEGAL FILE CLERK [facility] RDW 14.1 11.5 - 14.5 % 05/27/2023 2:57 PM LEGAL FILE CLERK [facility] PLT 160 150 - 350 x10'3/uL 05/27/2023 2:57 PM LEGAL FILE CLERK [facility] MPV 12.0(H) 7.4 - 10.4 FL 05/27/2023 2:57 PM LEGAL FILE CLERK [facility] ABS. NEUTROPHILS 3.00 1.60 - 8.30 x10'3/uL 05/27/2023 2:57 PM LEGAL FILE CLERK [facility] ABS. LYMPHOCYTES 1.64 0.80 - 4.70 x10'3/uL 05/27/2023 2:57 PM LEGAL FILE CLERK [facility] ABS. MONOCYTES 0.93 0.00 - 1.50 x10'3/uL 05/27/2023 2:57 PM LEGAL FILE CLERK [facility] ABS. EOSINOPHILS 0.07 0.00 - 0.40 x10'3/uL 05/27/2023 2:57 PM LEGAL FILE CLERK [facility] ABS. BASOPHILS 0.04 0.00 - 0.20 x10'3/uL 05/27/2023 2:57 PM LEGAL FILE CLERK [facility] ABS. IMMATURE GRANULOCYTES 0.01 0.00 - 0.03 x10'3/uL 05/27/2023 2:57 PM LEGAL FILE CLERK [facility] ABS. NUCLEATED RBC'S 0.00 0.0 x10'3/uL 05/27/2023 2:57 PM LEGAL FILE CLERK [facility] 05/27/2023 2:42 PM LEGAL FILE CLERK Julio Cesar Curry MD LABORATORY Final Result Performing Organization Address [facility] Co de Phone Number [facility] [address] [place] [address], [phone] * ECG 12 lead (05/27/2023 2:28 PM LEGAL FILE CLERK) 05/27/2023 2:28 PM LEGAL FILE CLERK Narrative [facility] - 05/27/2023 2:43 PM LEGAL FILE CLERK ? [facility] ?[address] [place], [place] ??[address] ? Test Date: ?2023-05-27 Pat Name: ? ENMA GARZA ?Department: ?? 1 ? Room: ? 1116AA Gender: ? Female ? 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 As : ?1940 ? Requested By: ALI DRISS Order Number: [id number] ? Reading MD: ?? Bony Hale ? Measurements Intervals ?[place] ? Rate: ? 64 ? P: ?46 WY: ? 123 ?QRS: ?44 QRSD: ? 92 ? T: ?54 QT: ? 428 ? QTc: ?443 ? 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 documented in this encounter Visit Diagnoses Diagnosis Syncope- Primary Syncope and collapse Syncope, unspecified syncope type Elevated INR Abnormal coagulation profile documented in this encounter Admitting Diagnoses Diagnosis Syncope Syncope and collapse Elevated INR Abnormal coagulation profile documented in this encounter Administered Medications Inactive Administered Medications - up to 3 most recent administrations Medication Order MAR Action Action Date Dose Rate Site acetaminophen (TYLENOL) tablet 650 mg 650 mg, Oral, Every 6 hours PRN, Mild pain (Scale 1 - 3), Starting on 05/27/23 at 2159, Until Joana 05/30/23 at 1317, Maximum dose of acetaminophen is 4000 mg from all sources in 24 hours. Given 05/30/2023 8:41 AM LEGAL FILE CLERK 650 mg Given 05/29/2023 11:19 PM LEGAL FILE CLERK 650 mg Given 05/28/2023 10:47 PM LEGAL FILE CLERK 650 mg ALPRAZolam (XANAX) tablet 0.25 mg 0.25 mg, Oral, Once, 1 dose, On Sat05/28/23 at 1415 Given 05/28/2023 2:05 PM LEGAL FILE CLERK 0.25 mg aspirin chewable tablet 81 mg 81 mg, Oral, Daily, First dose on Sat05/27/23 at 1430, Until Discontinued Given 05/30/2023 8:41 AM LEGAL FILE CLERK 81 mg Given 05/29/2023 9:50 AM LEGAL FILE CLERK 81 mg Given 05/28/2023 9:19 AM LEGAL FILE CLERK 81 mg atorvastatin (LIPITOR) tablet 20 mg 20 mg, Oral, Daily, First dose on Sat05/27/23 at 1430, Until Discontinued, Therapeutic interchange for rosuvastatin 10 mg daily Given 05/29/2023 9:05 PM LEGAL FILE CLERK 20 mg Given 05/28/2023 8:24 PM LEGAL FILE CLERK 20 mg Given 05/27/2023 2:38 PM LEGAL FILE CLERK 20 mg diatrizoate meglumine & sodium (GASTROGRAFIN) oral solution 30 mL 30 mL, Oral, IMG once as needed, Contrast, 1 dose, Starting on Sat05/28/23 at 1547, Until Sat05/28/23 at 1547 Given 05/28/2023 3:47 PM LEGAL FILE CLERK 30 mLs docusate sodium (COLACE) capsule 100 mg 100 mg, Oral, 2 times daily, First dose on Sat05/28/23 at 0000, Until Discontinued Given 05/28/2023 9:19 AM LEGAL FILE CLERK 100 mg Given 05/27/2023 11:52 PM LEGAL FILE CLERK 100 mg furosemide (LASIX) tablet 20 mg 20 mg, Oral, Daily, First dose on Sat05/28/23 at 1230, Until Discontinued Given 05/30/2023 8:41 AM LEGAL FILE CLERK 20 mg Given 05/29/2023 9:50 AM LEGAL FILE CLERK 20 mg hydrALAZINE (APRESOLINE) injection 10 mg 10 mg, Intravenous, Once, 1 dose, On Sat05/27/23 at 2230, Monitor HR and BP before dose and 15 min after IV dose. For IV push give over 1-2 minutes=5mg/min. Given 05/27/2023 10:07 PM LEGAL FILE CLERK 10 mg lisinopril (PRINIVIL) tablet 20 mg 20 mg, Oral, Daily, First dose on Sat05/28/23 at 1245, Until Discontinued Given 05/30/2023 8:41 AM LEGAL FILE CLERK 20 mg Given 05/29/2023 9:48 AM LEGAL FILE CLERK 20 mg Given 05/28/2023 1:30 PM LEGAL FILE CLERK 20 mg normal saline 0.9 % flush 3-10 mL 3-10 mL, Intravenous, Every 8 hours, First dose on Sat05/27/23 at 1445, Until Discontinued Given 05/30/2023 6:13 AM LEGAL FILE CLERK 10 mLs Given 05/29/2023 11:16 PM LEGAL FILE CLERK 10 mLs Given 05/28/2023 8:24 PM LEGAL FILE CLERK 10 mLs normal saline 0.9 % flush 3-10 mL 3-10 mL, Intravenous, As needed, Line care, Starting on Sat05/27/23 at 1415, Until Sat05/30/23 at 1317 pantoprazole EC (PROTONIX) tablet 40 mg 40 mg, Oral, Daily, First dose on Sat05/28/23 at 1245, Until Discontinued, Do not break, chew, or crush. Given 05/30/2023 8:42 AM LEGAL FILE CLERK 40 mg Given 05/28/2023 1:30 PM LEGAL FILE CLERK 40 mg potassium chloride CR (KLOR-CON M) tablet 20 mEq 20 mEq, Oral, Daily, First dose on Sat05/29/23 at 1700, Until Discontinued, Do not chew, crush, or suck on tablet. May break in half. May dissolve whole tablet in 120 mL of water and drink immediately. Given 05/30/2023 8:40 AM LEGAL FILE CLERK 20 mEq Given 05/29/2023 5:44 PM LEGAL FILE CLERK 20 mEq potassium chloride CR (KLOR-CON M) tablet 40 mEq 40 mEq, Oral, Once, 1 dose, On Sat05/28/23 at 1230, Do not chew, crush, or suck on tablet. May break in half. May dissolve whole tablet in 120 mL of water and drink immediately. Given 05/28/2023 1:29 PM LEGAL FILE CLERK 40 mEq potassium chloride CR (KLOR-CON M) tablet 40 mEq 40 mEq, Oral, Once, 1 dose, On Sat05/28/23 at 1630, Do not chew, crush, or suck on tablet. May break in half. May dissolve whole tablet in 120 mL of water and drink immediately. Given 05/28/2023 5:28 PM LEGAL FILE CLERK 40 mEq psyllium (METAMUCIL) 58.12 % packet 1 packet 1 packet, Oral, Daily, First dose on Sat05/28/23 at 1245, Until Discontinued, Mix dose in 240 mL water or juice Given 05/29/2023 9:50 AM LEGAL FILE CLERK 1 packet Given 05/28/2023 1:30 PM LEGAL FILE CLERK 1 packet warfarin (COUMADIN) pharmacy to dose placeholder Oral, See admin instructions, Starting on Sat05/29/23 at 1448, Until Sat05/30/23 at 1317, Warfarin Placeholder Only: Do NOT document administrations on this placeholder. (Use medication on AUG to document administrations or contact pharmacy if medication order not entered.) warfarin (COUMADIN) tablet 2 mg 2 mg, Oral, Once, 1 dose, On Sat05/29/23 at 1700, HAZARDOUS MEDICATION: wear single chemotherapy approved gloves. Do not open or split. If crushing, use approved closed-system crushing device for hazardous medications. Given 05/29/2023 5:45 PM LEGAL FILE CLERK 2 mg documented in this encounter Active and Recently Administered Medications Times are shown in LEGAL FILE CLERK. Scheduled Medication Order 05/28/2023 05/29/2023 05/30/2023 ALPRAZolam (XANAX) tablet 0.25 mg (COMPLETED) 0.25 mg, Oral, Once, 1 dose, On Sat05/28/23 at 1415 1405 (Given - Provider: Aleah Johnston RN) aspirin chewable tablet 81 mg 81 mg, Oral, Daily, First dose on Sat05/27/23 at 1430, Until Discontinued 09 (Given - Provider: Aleah Johnston RN) 0950 (Given - Provider: Rachel Dalal RN - Comment: administered meds with Peter REVELES RN aware of platelet count prior to administration.) 0841 (Given - Provider: Miarcle Ramirez, Nurse Student) atorvastatin (LIPITOR) tablet 20 mg 20 mg, Oral, Daily, First dose on Sat05/27/23 at 1430, Until Discontinued, Therapeutic interchange for rosuvastatin 10 mg daily 2023 (Given - Provider: Ronal Rose RN) 2104 (Given - Provider: Cynthia Gonsalez LPN) docusate sodium (COLACE) capsule 100 mg (CANCELED) 100 mg, Oral, 2 times daily, First dose on Sat05/28/23 at 0000, Until Discontinued 0919 (Given - Provider: Aleah Johnston RN) furosemide (LASIX) tablet 20 mg 20 mg, Oral, Daily, First dose on Sat05/28/23 at 1230, Until Discontinued 1328 (Not Given - Provider: Aleah Johnston RN - Reason: Patient/family declined) 0950 (Given - Provider: Rachel Dalal, ZORAN - Comment: administered meds with V. Ramirez SPN) 0841 (Given - Provider: Miracle Ramirez, Nurse Student) lisinopril (PRINIVIL) tablet 20 mg 20 mg, Oral, Daily, First dose on Sat05/28/23 at 1245, Until Discontinued 1330 (Given - Provider: Aleah Johnston RN) 0948 (Given - Provider: Rachel Dalal RN - Comment: administered meds with V. Ramirez SPN) 0841 (Given - Provider: Miracle Ramirez, Nurse Student) normal saline 0.9 % flush 3-10 mL 3-10 mL, Intravenous, Every 8 hours, First dose on Sat05/27/23 at 1445, Until Discontinued 0639 (Given - Provider: Adelso Self RN)1333 (Given - Provider: Aleah Johnston RN)2024 (Given - Provider: Ronal Rose, ZORAN) 0526 (Not Given - Provider: Ronal Rose RN - Reason: Patient sleeping)1325 (Not Given - Provider: Lauren Reece LPN - Reason: Patient already took)2316 (Given - Provider: Cynthia Ferraro RN) 0613 (Given - Provider: Cynthia Gonsalez LPN) pantoprazole EC (PROTONIX) tablet 40 mg 40 mg, Oral, Daily, First dose on Sat05/28/23 at 1245, Until Discontinued, Do not break, chew, or crush. 1330 (Given - Provider: Aleah Johnston RN) 0953 (Not Given - Provider: Rachel Dalal RN - Reason: Patient/family declined) 0842 (Given - Provider: Miracle Ramirez, Nurse Student) potassium chloride CR (KLOR-CON M) tablet 20 mEq 20 mEq, Oral, Daily, First dose on Sat05/29/23 at 1700, Until Discontinued, Do not chew, crush, or suck on tablet. May break in half. May dissolve whole tablet in 120 mL of water and drink immediately. 1744 (Given - Provider: Lauren Reece LPN) 0840 (Given - Provider: Miracle Ramirez, Nurse Student) potassium chloride CR (KLOR-CON M) tablet 40 mEq (COMPLETED) 40 mEq, Oral, Once, 1 dose, On Sat05/28/23 at 1230, Do not chew, crush, or suck on tablet. May break in half. May dissolve whole tablet in 120 mL of water and drink immediately. 1329 (Given - Provider: Aleah Johnston, ZORAN) potassium chloride CR (KLOR-CON M) tablet 40 mEq (COMPLETED) 40 mEq, Oral, Once, 1 dose, On Sat05/28/23 at 1630, Do not chew, crush, or suck on tablet. May break in half. May dissolve whole tablet in 120 mL of water and drink immediately. 1728 (Given - Provider: Keila Gant LPN) psyllium (METAMUCIL) 58.12 % packet 1 packet 1 packet, Oral, Daily, First dose on Sat05/28/23 at 1245, Until Discontinued, Mix dose in 240 mL water or juice 1330 (Given - Provider: Aleah Johnston, ZORAN) 0950 (Given - Provider: Rachel Dalal RN - Comment: administered meds with Peter NORTON) 0848 (Not Given - Provider: Miracle Ramirez, Nurse Student - Reason: Other - Comment: pt will take metamucil at home) warfarin (COUMADIN) pharmacy to dose placeholder(Linked Group 1) Oral, See admin instructions, Starting on Sat05/29/23 at 1448, Until Sat05/30/23 at 1317, Warfarin Placeholder Only: Do NOT document administrations on this placeholder. (Use medication on AUG to document administrations or contact pharmacy if medication order not entered.) warfarin (COUMADIN) tablet 2 mg (COMPLETED) 2 mg, Oral, Once, 1 dose, On Sat05/29/23 at 1700, HAZARDOUS MEDICATION: wear single chemotherapy approved gloves. Do not open or split. If crushing, use approved closed-system crushing device for hazardous medications. 1745 (Given - Provider: Lauren Reece LPN) PRN Medication Order 05/28/2023 05/29/2023 05/30/2023 acetaminophen (TYLENOL) tablet 650 mg 650 mg, Oral, Every 6 hours PRN, Mild pain (Scale 1 - 3), Starting on Sat05/27/23 at 2159, Until Sat05/30/23 at 1317, Maximum dose of acetaminophen is 4000 mg from all sources in 24 hours. 2247 (Given - Provider: Ronal Rose, ZORAN) 2319 (Given - Provider: Cynthia Ferraro, ZORAN) 0841 (Given - Provider: Miracle Ramirez, Nurse Student) diatrizoate meglumine & sodium (GASTROGRAFIN) oral solution 30 mL (COMPLETED) 30 mL, Oral, IMG once as needed, Contrast, 1 dose, Starting on Sat05/28/23 at 1547, Until Sat05/28/23 at 1547 1547 (Given - Provider: Velia Toledo, RTR) nitroglycerin (NITROSTAT) SL tablet 0.4 mg 0.4 mg, Sublingual, Every 5 min PRN, Chest Pain, Starting on Sat05/27/23 at 1413, Until Joana 05/30/23 at 1317 normal saline 0.9 % flush 3-10 mL 3-10 mL, Intravenous, As needed, Line care, Starting on Sat05/27/23 at 1415, Until Sat05/30/23 at 1317 Linked Groups Order Group 1: Pharmacy to dose warfarin (COUMADIN) (CANCELED) Routine, Once, On Sat05/29/23 at 1449, For 1 occurrence, [facility] INR? 2-3 And warfarin (COUMADIN) pharmacy to dose placeholderJump to med Oral, See admin instructions, Starting on Sat05/29/23 at 1448, Until Sat05/30/23 at 1317, Warfarin Placeholder Only: Do NOT document administrations on this placeholder. (Use medication on AUG to document administrations or contact pharmacy if medication order not entered.) documented in this encounter Care Teams Shadow Graph Weight Operator Relationship Specialty Start Date End Date Jose A Tanner DO [address] [place] [address] PCP - General FAMILY PRACTICE 05/24/23 documented as of this encounter
--- OUTSIDE RECORDS SUMMARY | 2024-06-08 20:47 | XMS_ITS | Encounter Summary ---
Author Organization [facility] Address [address] [place] [address]. [place] [address] [place] [address] Care Team Providers Care Airline Pilot Flight Instructor Name Role Phone Jose A Tanner DO Primary Care Provider [phone] Reason for Visit * Reason Comments Follow Up Encounter Details Date Type Department Care Team ([facility] st Contact Info) Description 07/26/2023 1:00 PM LEAD INGOT MOLDER [facility] [address] [place] [address] Marcin Gomez PA-C [address] [place] [address] Follow Up Social History Tobacco Use Types Packs/Day Years Used Date Smoking Tobacco: Never Smokeless Tobacco: Never [facility] Utilities Answer Date Recorded In the past 12 months has [facility] [employer], gas, oil, or water [employer] threatened to shut off services in your [...] place to sleep or slept in a half-way (including now)? No 05/27/2023 Comments No Sex and Gender Information Value Date Recorded Sex Assigned at Not on file Legal Sex Female 8:54 PM CDT Gender Identity Not on file Sexual Orientation Not on file documented as of this encounter Last Filed Vital Signs Vital Sign Reading Time Taken Comments Blood Pressure 132/70 07/26/2023 12:50 PM LEAD INGOT MOLDER Pulse 73 07/26/2023 12:50 PM LEAD INGOT MOLDER Temperature - - Respiratory Rate 16 07/26/2023 12:5 0 PM LEAD INGOT MOLDER Oxygen Saturation 97% 07/26/2023 12: 50 PM LEAD INGOT MOLDER Inhaled Oxygen Concentration - - Weight 64.3 kg (141 lb 12.8 oz) 024 12:50 PM LEAD INGOT MOLDER Height 165.1 cm (5' 5 ) 07/26/2023 12:5 0 PM LEAD INGOT MOLDER Body Mass Index 23.6 07/26/2023 12:50 PM LEAD INGOT MOLDER documented in this encounter Functional Status * Are you [...] Stearns RN Active documented in this encounter Progress Notes * Marcin Gomez PA-C - 07/26/2023 1:00 PM CST Reason for Visit: Follow Up History of Present Illness: Mrs. Garza CAD, DVT, hypertension, and peripheral artery disease who we were asked to see in consultation during a hospital admission in May, for syncope. On 05/27/23 the patient was sitting in a chair when she became unresponsive and apparently had a blood pressure of 60/40 mmHg. Rapid response was called and the patient was back to her baseline mental status. Echocardiogram on May 28, 2023 showed: The left ventricular systolic function is hyperdynamic. [...] Estimated right atrial pressure of 3 mmHg. Mrs. Garza remained in sinus rhythm with no significant or sustained atrial or ventricular arrhythmia arrhythmia, bradycardia, pauses, or AV block that would explain syncope. Her syncope seem most consistent with neurocardiogenic syncope. We ordered a 30-day senior database engineer following hospital discharge. The patient presents to our clinic today for follow-up of her syncope. Mrs. Garza has had no recurrence of syncope or near syncope since her hospital discharge in May,. Her biggest complaint is that of anxiety that sometimes causes a sense of palpitations. She denies anginal type chest pain. She denies symptoms consistent with TIA or CVA. The senior database engineer from 06/11/23 to 07/10/23 showed sinus rhythm with heart rates ranging between 53 and 132 bpm, and average rate of 84 bpm. Sinus node function was normal. Severe bradycardia was not observed. Chronotropic incompetence was not observed. Pauses longer than 3 seconds were not observed. A-V conduction was normal. Significant A-V block was not observed. There were 9 episodes of asymptomatic non-sustained atrial tachycardia observed. The longest episode was 6.1s on 06/26 01:29, and the fastest episode was 181 BPM on 07/01 18:07. PAC burden was 2%. Atrial fibrillation and flutter burden was 0%. PVC burden was <1%. There were no episodes of non-sustained ventricular tachycardia observed. There were 11 patient triggered events. Symptoms reported: Swelling in legs, palpitations, increase in coughing. Events correlated with Sinus rhythm. My review of an EKG today finds sinus rhythm at 73 bpm with a sinus arrhythmia. ID interval 161 ms.QRS duration 88 ms. Corrected QT interval 416 ms. Recommendations and Plan: Mrs. Garza's episode of syncope in May, sounds most consistent with neurocardiogenic syncope. There has been no significant or sustained atrial or ventricular arrhythmia detected that would explain syncope or near syncope. In the absence of significant arrhythmia, we will make no plans for formal follow-up with this patient. I did ask her to follow-up with her primary grad intern, Dr. Ravinder Mclean, with [facility] for the remainder of her cardiovascular care. Medications: Current Outpatient Medications: ALPRAZolam (XANAX) 0.25 MG tablet, TAKE 1/2 TABLET BY MOUTH AT BEDTIME NEEDED FOR SLEEP, Disp: ,Rfl: benazepril (LOTENSIN) 10 MG tablet, Take 1 tablet (10 mg total) by mouth daily., Disp: , Rfl: potassium chloride CR (K-TAB) 20 MEQ tablet, Take 1 tablet (20 mEq total) by mouth daily., Disp: , Rfl: apixaban (ELIQUIS) 5 MG tablet, Take 1 tablet (5 mg total) by mouth 2 (two) times daily., Disp: 60 tablet, Rfl: 1 aspirin EC (ASPIRIN EC) 81 MG tablet, Take 1 tablet (81 mg total) by mouth daily., Disp: , Rfl: furosemide 20 MG tablet, Take by mouth daily. , Disp: , Rfl: nitroglycerin (NITROSTAT) 0.4 MG SL tablet, Place 1 tablet (0.4 mg total) under the tongue., Disp: , Rfl: rosuvastatin 10 MG tablet, Take 1 tablet (10 mg total) by mouth nightly at bedtime., Disp: , Rfl: Review of patient's allergies indicates: Allergen Reactions Prednisone Blurred vision Past Medical History: Diagnosis Date CAD (coronary artery disease) COVID-19 01/2021 DVT (deep venous thrombosis) ([facility]) ([facility]) left upper extremity HTN (hypertension) Mild aortic stenosis Non-rheumatic mitral regurgitation PAD (peripheral artery disease) ([facility]) Polio ([facility]) Past Surgical History: Procedure Laterality Date CARDIAC STENTS VASCULAR SURGERY iliac Social History Tobacco Use Smoking status: Never Smokeless tobacco: Never Family History Family history unknown: Yes No family status information on file. Review of Systems Constitutional: Negative for recent unintentional weight gain, recent unintentional weight loss andnew or significant fatigue. HENT: Negative for new or significant hearing loss. Eyes: Negative for blurred vision and double vision. Respiratory: Negative for cough, new or significant shortness of breath and snoring. Cardiovascular: See HPI. Gastrointestinal: Negative for nausea, vomiting, abdominal pain, blood in stool and melena. Genitourinary: Negative for dysuria. Musculoskeletal: Negative for myalgias and new or worsening joint stiffness/pain. Skin: Negative for rash. Neurological: Negative for tingling/numbness, focal weakness and LOC. Endo/Heme/Allergies: Negative for new or significant bruising/bleeding and polydipsia. Psychiatric/Behavioral: Positive for nervous/anxious. Negative for depression and new or significant memory loss. Vitals: 07/26/23 1250 BP: 132/70 Patient Position: Sitting BP Location: Right arm Pulse: 73 Weight: 64.3 kg (141 lb 12.8 oz) Height: 1.651 m (5' 5 ) Body mass index is 23.6 kg/m??. Cardiac Exam Rate/Rhythm: Normal rate and regular rhythm. PMI: PMI is not displaced. Pulses: Normal pulses. Radial pulses are 2+ on the right side and 2+ on the left side. Heart Sounds: Normal S1 sounds. Normal S2 sounds. No gallop present. No S3. No S4. Murmurs: Murmur present Edema left: 0. Edema Right: 0. Physical Exam Constitutional: No distress. Elderly female. HENT: Oropharynx clear. Eyes: Conjunctivae normal. Neck: Neck supple. No JVD. Abdomen: Abdomen soft. Bowel sounds normal. No distension. No tenderness. Pulmonary: Effort normal. Breath sounds normal. Skin: No rash. No cyanosis. Musculoskeletal: No kyphosis. Normal ROM. Neurological: Alert. Oriented x 3. Appropriate mood and affect. Normal motor skills. Normal gait. Comments: Diagnoses/Impression: 1. Neurocardiogenic syncope Referring Provider: No ref. provider found PCP: JOSE A TANNER DO INGOT MOLDER INGOT MOLDER documented in this encounter Plan of Treatment Not on file documented as of this encounter Procedures Procedure Name Priority Date/Time Associated Diagnosis Comments ELECTROCARDIOGRAM (NON MIDMARK ACQUIRED) Routine 07/26/2023 12:48 PM LEAD INGOT MOLDER Neurocardiogenic syncope documented in this encounter Results * ELECTROCARDIOGRAM (07/26/2023 12:48 PM LEAD INGOT MOLDER) 07/26/2023 12:4 8 PM LEAD INGOT MOLDER Narrative [facility] - 07/29/2023 12:08 AM LEAD INGOT MOLDER ? [facility] ?[address], [place] ??[address] ? Test Date: ?2023-07-26 Pat Name: ? LINDA GARZA ?Department: ?? 105 ? Room: ? Gender: ? Female ? Garment Inspector: ?? cmw : ?1940 ? Requested By: EVERARDO SMITH Order Number: [id number] ?Reading MD: ?? Everardo Smith ? Measurements Intervals ?[place] ? Rate: ? 73 ? P: ?61 ID: ? [id number] ?QRS: ?64 QRSD: ? 88 ? T: ?63 QT: ? 377 ? QTc: ?416 ? Interpretive Statements SINUS RHYTHM WITH FREQUENT PAC'S OTHERWISE NORMAL ECG INGOT MOLDER Procedure Note Everardo Smith MD - 07/29/2023 [facility], [facility] [address] [place] [address] Test Date: 2023-07-26 Pat Name: LINDA GARZA Department: 105 Room: Gender: Female Garment Inspector: cmw : 1940 Requested By: EVERARDO SMITH Order Number: [id number] Reading MD: Everardo Smith Measurements Intervals [place] Rate: 73 P: 61 ID: [id number] QRS: 64 QRSD: 88 T: 63 QT: 377 QTc: 416 Interpretive Statements SINUS RHYTHM WITH FREQUENT PAC'S OTHERWISE NORMAL ECG INGOT MOLDER us Everardo Smith MD PROCEDURES-ORDERABLE NO CHARGE Final Result [facility] documented in this encounter Visit Diagnoses Diagnosis Neurocardiogenic syncope- Primary documented in this encounter Care Teams Airline Pilot Flight Instructor Relationship Specialty Start Date End Date Jose A Tanner DO [address] [place] [address] PCP - General FAMILY PRACTICE 05/24/23 documented as of this encounter
--- OUTSIDE RECORDS SUMMARY | 2024-06-08 20:47 | XMS_ITS | Encounter Summary ---
Author Organization [facility] Address [facility] [facility] [place] [place] [address] [place] [address] Care Team Providers Care Special Service Officer Name Role Phone Unavailable Primary Care Provider Unavailabl e Encounter Details Date Type Department Care Team (Late st Contact Info) Description 02/09/2013 Abstract [facility] [address] [place] [address] Kamaljit Mukherjee MD [address] [place] [address] Social History Tobacco Use Types Packs/Day Years [...] this encounter Visit Diagnoses Diagnosis Pain in soft tissues of limb Pain in limb documented in this encounter
--- OUTSIDE RECORDS SUMMARY | 2024-06-08 20:47 | XMS_ITS | Encounter Summary ---
Author Organization [facility] Address [facility]. [place], [place] [id number] [place] [id number] Care Team Providers Care Bilingual Spanish Inbound Sales Name Role Phone None, Provider Primary Care Provider Sukhi Reeves MD Primary Care Provider [phone] Reason for Referral * (Routine) - Canceled Specialty Diagnoses / Procedures Referred By Contac t Referred To Contact Procedures OT eval and treat Angelita Lacy ANP-BC [address] [place] [address] Phone: tel: fax: Referral ID Status Reason Start Date Expiration Date V isits Requested Visits Authorized [id number] Canceled 08/31/2021 10/01/2022 1 1 ER TENDER * (Routine) - Canceled Specialty Diagnoses / Procedures Referred By Contac t Referred To Contact Procedures PT eval and treat Angelita Lacy ANP-BC [address] [place], [place] [address] [phone] Phone: tel: fax: Referral ID Status Reason Start Date Expiration Date V isits Requested Visits Authorized [id number] Canceled 08/31/2021 10/01/2022 1 1 ER TENDER * Imaging (Emergency) - Closed Specialty Diagnoses / Procedures Referred By Contac t Referred To Contact RADIOLOGY Procedures CT HEAD WO Adelso Rudd MD Phone: tel: fax: Referral ID Status Reason Start Date Expiration Date Visits Re quested Visits Authorized [id number] Closed 08/31/2021 10/01/2022 1 1 ER TENDER Reason for Visit * Reason Comments Weakness * Auth/Cert Specialty Diagnoses / Procedures Referred By Contac t Referred To Contact Diagnoses Weakness Abscess of left hand Procedures GENERAL Referral ID Status Reason Start Date Expiration Date Visits Re quested Visits Authorized [id number] 1 1 Encounter Details Date Type Department Care Team (Late st Contact Info) Description 08/31/2021 8:29 AM DUSTER TENDER - 09/02/2021 11:50 AM DUSTER TENDER Emergency [place] [facility] [address] [facility] [place] [address] Adelso Adams MD [address] [place] [id number] [place] [id number] [place] [address] [id number] Weakness Discharge Disposition: Home or Self Care (Routine Discharge) Social History Tobacco Use Types Packs/Day Years Used Date Smoking Tobacco: Never Smokeless Tobacco: Never Comments No Sex and Gender Information Value Date Recorded Sex Assigned at Not on file Legal Sex Female 8:54 PM CDT Gender Identity Not on file Sexual Orientation Not on file COVID-19 Exposure Response Date Recorded In the last 10 days, have yo u been in contact with someone who was confirmed or suspected to have Coronavirus/COVID-19? No / Unsure 08/31/2021 9:13 AM DUSTER TENDER documented as of this encounter Last Filed Vital Signs Vital Sign Reading Time Taken Comments Blood Pressure 138/66 09/02/2021 8:40 AM DUSTER TENDER Pulse 95 09/02/2021 8:40 AM DUSTER TENDER Temperature 36.4 ??C (97.6 ??F) 09/02/2021 8:40 AM CS T Respiratory Rate 18 09/02/2021 5:00 AM DUSTER TENDER Oxygen Saturation 96% 09/02/2021 8:40 AM DUSTER TENDER Inhaled Oxygen Concentration - - Weight 67.6 kg (149 lb) 09/02/2021 5:00 AM DUSTER TENDER Height 165.1 cm (5' 5 ) 08/31/2021 2:35 PM DUSTER TENDER Body Mass Index 24.79 08/31/2021 2:35 PM DUSTER TENDER documented in this encounter Functional Status * Question Answer Date of Assessment Author Status Do you have serious difficulty walking or climbing stairs? Yes 08/31/2021 2:55 PM An Bhatti RN Active * Question Answer Date of Assessment Author Status Do you have difficulty dressing or bathing? Yes 08/31/2021 2:55 PM An Bhatti RN Active Because of a physical, mental, or emotional condition, do you have difficulty doing errands alone such as visiting a doctor's office or shopping? No 08/31/2021 2:55 PM An Bhatti RN A ctive * RETIRED Are you deaf or do you have serious difficulty hearing Answer Date of Assessment Author Status No 08/31/2021 2:55 PM DUSTER TENDER Activ e * RETIRED Are you blind or do you have serious difficulty seeing, even when wearing glasses? Answer Date of Assessment Author Status No 08/31/2021 2:55 PM DUSTER TENDER Activ e * Do you have serious [...] difficulty concentrating, remembering, or making decisions? No 08/31/2021 2:55 PM An Bhatti RN Active * Because of a physical, mental, or emotional condition, do you have serious difficulty concentrating, remembering, or making decisions? Answer Entry Date Author Status No 08/31/2021 2:55 PM DUSTER TENDER An López RN Active documented in this encounter Discharge Summaries * SANDRINE Tan - 09/02/2021 9:36 AM CST Images from the original note were not included. Physician Discharge Summary Patient ID: Enma Garza. female. [id number]. Admit date: 08/31/2021 8:29 AM Discharge date and time: 09/02/21 Admitting Physician: Lester Liu MD Primary Care Physician: SUKHI FRANKEL MD Attending Provider: Lester Liu MD Discharge Physician: Dr. Liu/SANDRINE TAN Primary Diagnoses: Left lower extremity cellulitis Secondary Diagnosis: Ecchymosis of the left hand CAD Hypertension Admission Condition: fair Discharged Condition: Stable Code Status: Full Code Indication for Admission: Chief Complaint Patient presents with ??? Weakness Reason for hospitalization: Cellulitis of left lower extremity Hospital Course: Enma Garza was admitted on 08/31/2021 8:29 AM for cellulitis of left lower extremity. Patientpresented to the ER with complaints of weakness. Patient was noted to have erythema and warmth to left lower extremity and was started ceftriaxone. Patient received 1 dose with great improvement in the pain as well as appearance. Patient was then switched to p.o. Keflex and will continue Omnicef atdischarge. Patient did have positive blood cultures growing gram- positive cocci in 1 out of 2 bottles which placed likely contaminant. Patient did undergo x-ray of left hand due to ecchymosis howeverno acute findings and no concern for current bleeding therefore anticoagulation was continued. Patient was seen by physical and Occupational Therapy who recommended home with assist. Recommendations provided to patient to follow-up with her PCP to determine if she can do outpatient therapy. Lisinopril was increased for persistently elevated blood pressures. Patient to follow-up with PCP for continued monitoring and management. Discharge home with daughter today. Consults: none Significant Diagnostic Studies: Radiology Results (Last 30 days) 08/31/[address] HEAD WO CON Final result Impression: IMPRESSION: 1. No acute intracranial process identified. 2. Stable cortical atrophy and small vessel disease. Ordered By: ADELSO ADAMS Interpreted By: Kaleb Fajardo MD, 08/31/2021 12:04 PM 08/31/21 0856 XR CHEST PORTABLE Final result Impression: IMPRESSION: No acute disease. Ordered By: ADELSO ADAMS Interpreted By: Kaleb Fajardo MD, 08/31/2021 9:03 AM 08/31/21 0856 XR HAND LT 3V Final result Impression: IMPRESSION: 1. No evidence of acute osseous abnormality. 2. Osteopenia and osteoarthritis. 3. Mild dorsal soft tissue swelling. Ordered By: ADELSO ADAMS Interpreted By: Kaleb Fajardo MD, 08/31/2021 9:05 AM Vital Signs at Discharge: Filed Vitals: 09/01/21 1300 09/01/21 1913 09/02/21 0500 09/02/21 0840 BP: (!) 120/93 (!) 146/65 (!) 148/76 138/66 Pulse: 96 96 91 95 Resp: 16 18 18 Temp: 97.7 ??F (36.5 ??C) 97.7 ??F (36.5 ??C) 97.6 ??F (36.4 ??C) 97.6 ??F (36.4 ??C) TempSrc: Tympanic Tympanic Tympanic Tympanic SpO2: 96% 95% 94% 96% Weight: 67.6 kg (149 lb) Height: Last labs past 24 hours: Recent Results (from the past 24 hour(s)) PROTIME/INR, VENOUS Collection Time: 09/02/21 5:24 AM Result Value Ref Range Protime 39.2 (H) 10.2 - 12.9 SEC INR 3.2 (H) 0.9 - 1.1 CBC W/DIFF AUTOMATED Collection Time: 09/02/21 5:24 AM Result Value Ref Range WBC 9.4 4.0 - 10.8 x10'3/uL RBC 4.83 4.10 - 5.40 x10'6/uL HGB 14.3 12.0 - 16.0 G/DL HCT 43.9 36.0 - 47.0 % MCV 90.9 78.0 - 100.0 FL MCH 29.6 27.0 - 31.0 PG MCHC 32.6 (L) 33.0 - 36.0 G/DL RDW 14.1 11.5 - 14.5 % PLT 202 150 - 350 x10'3/uL MPV 11.8 (H) 7.4 - 10.4 FL Differential Comment NORMAL REFERENCE RANGE NOT ESTABLISHED FOR THE PROPORTIONAL LEUKOCYTE DIFFERENTIAL. SEG NEUTROPHILS 64.3 % LYMPHOCYTES 18.9 % MONOCYTES 14.8 % EOSINOPHILS 1.3 % BASOPHILS 0.4 % IMMATURE GRANS 0.3 % NRBC 0.0 % ABS. NEUTROPHILS 6.03 1.60 - 8.30 x10'3/uL ABS. LYMPHOCYTES 1.77 0.80 - 4.70 x10'3/uL ABS. MONOCYTES 1.39 0.00 - 1.50 x10'3/uL ABS. EOSINOPHILS 0.12 0.00 - 0.40 x10'3/uL ABS. BASOPHILS 0.04 0.00 - 0.20 x10'3/uL ABS. IMMATURE GRANULOCYTES 0.03 0.00 - 0.03 x10'3/uL ABS. NUCLEATED RBC'S 0.00 0.00 x10'3/uL BASIC METABOLIC PANEL Collection Time: 09/02/21 5:24 AM Result Value Ref Range SODIUM 137 136 - 145 MMOL/L POTASSIUM 3.8 3.5 - 5.1 MMOL/L CHLORIDE S/P/B 97 (L) 98 - 107 MMOL/L CO2 27.2 21.0 - 32.0 MMOL/L GLUCOSE 102 (H) 70 - 99 MG/DL BUN 21 6 - 24 MG/DL CREATININE S/P/B 0.83 0.55 - 1.02 MG/DL CALCIUM 8.7 8.4 - 10.5 MG/DL ANION GAP 12.8 5.0 - 15.0 MMOL/L OSMOLALITY (CALC) 287 MOSM/KG eGFR Non-Afr. Amer. 66 (L) >89 ML/MIN/1.73 M2 eGFR Afr. Amer. 76 (L) >89 ML/MIN/1.73 M2 GFR NOTES GFR REFERENCES: Discharge Medications: Medication List START taking these medications Morning Afternoon Evening Bedtime As Needed cephALEXin 500 MG capsule Commonly known as: KEFLEX Take 1 capsule (500 mg total) by mouth 4 (four) times daily for 10 days. lisinopril 20 MG tablet Commonly known as: PRINIVIL Start taking on: September 03, 2021 Take 1 tablet (20 mg total) by mouth daily. Last time this was given: 20 mg on September 02, 2021 8:46 AM CONTINUE taking these medications Morning Afternoon Evening Bedtime As Needed ALPRAZolam 1 MG tablet Commonly known as: XANAX nightly at bedtime. aspirin EC 81 MG tablet Commonly known as: ECOTRIN Take 81 mg by mouth daily. Last time this was given: 81 mg on September 02, 2021 8:46 AM benazepril 10 MG tablet Commonly known as: LOTENSIN Take by mouth nightly at bedtime. furosemide 20 MG tablet Commonly known as: LASIX Take by mouth daily. Last time this was given: 20 mg on September 02, 2021 8:46 AM rosuvastatin 10 MG tablet Commonly known as: CRESTOR Take 10 mg by mouth nightly at bedtime. warfarin 3 MG tablet Commonly known as: COUMADIN Last time this was given: 3 mg on September 01, 2021 5:33 PM Medications Discontinued during this hospitalization: Disposition: discharged to home Durable Medical Equipment Needed: none Patient Instructions: Activity: activity as tolerated Diet: regular diet Wound Care: none needed Follow-up appointments: With PCP early next week Findings that require further workup: Hypertension, Weakness Followup Lab Orders: None Lab Frequency Next Occurrence Up With Assistance As needed PROTIME/INR, VENOUS Daily (early AM pickups) CBC W/DIFF AUTOMATED Daily (early AM pickups) BASIC METABOLIC PANEL Daily (early AM pickups) Dietary nutrition supplements 2 times daily Time Spent on Discharge Less than 30 minutes Signed: SANDRINE TAN Cosigned by Lester Liu MD at 09/04/2021 8:28 AM CDT ER TENDER documented in this encounter Discharge Instructions * Discharge Instructions* Annabella Lopez RN - 09/02/2021 11:10 AM DUSTER TENDER Images from the original note were not included. Patient Education Abscess Drainage, Percutaneous Discharge Instructions About this topic An abscess is a collection of pus under your skin. The doctors made a cut to open up the area and clean out the wound. Most of the time, the cut is not closed with stitches. The wound may be packed with a special gauze to keep it from closing too soon. Sometimes a small drain is placed. Percutaneous abscess drainage is a procedure to drain an abscess with a needle or small tube. The needle or tube goes through the skin instead of having to make a large cut to drain the abscess. What care is needed at home? ?? Ask your doctor what you need to do when you go home. Make sure you ask questions if you do not understand what the doctor says. ?? Keep your wound covered with gauze until it is fully healed. ?? If you do not have any packing, soak the wound in warm soapy water a few times each day. ?? If you have packing, do not soak the wound. Your regular doctor will change the packing during your appointment. This will need to be repeated until the wound stops draining. Then you can begin soaking it in warm soapy water a few times each day. ?? If you have a drain in place, the doctor will give you special instructions on how to care for the drain. ?? Keep your wound dry unless you are soaking it in warm soapy water as instructed. ?? If the doctors order an antibiotic for you, be sure to take all of them, even if you start to feel better. What follow-up care is needed? ?? Ask your doctor what you need to do when you go home. Make sure you ask questions if you do not understand what the doctor says. This way you will know what you need to do. ?? You may go home with a drain tube. If so, the doctor will take the tube out after the drainage has stopped and the infection is gone. ?? Be sure to take all of your drugs for infection. These are very important to make sure the infection is fully treated and it goes away completely. What drugs may be needed? The doctor may order drugs to: ?? Help with pain ?? Fight an infection Will physical activity be limited? ?? You may have to limit your activity to help your wound heal. Talk to your doctor about the rightamount of activity for you. ?? Splints may be needed if you have an abscess in your arm, hand, or leg. This will help control motion to let the wound heal faster. What problems could happen? ?? Bleeding ?? More infection ?? Injury or infection to other organs near the affected area ?? Trouble passing urine or moving bowels if abscess is in the belly ?? Tube falls out or moves out of place (if drainage tube was left in) What can be done to prevent this health problem? ?? Practice proper hygiene. Practice good hand washing, especially before and after touching the cut site. ?? Do not share towels, razors, and other personal things with someone else. ?? Be careful when you shave your face, underarms, or legs to avoid scratching or cutting your skin. ?? If you cut yourself, keep the area clean and put petroleum jelly on it. ?? If your infection is caused by MRSA, ask your doctor how to try to get rid of this bacteria. When do I need to call the doctor? ?? You get a fever of 100.4??F (38??C) or higher and have a red rash all over your body with red eyes, diarrhea, and/or mouth sores. ?? You are confused or very sleepy. ?? To have your packing changed if your wound is packed. ?? You have a fever of 100.4??F (38??C) or higher or chills. ?? Your wound is swollen, red, or warm. ?? Your wound has thick yellow or green drainage. Teach Back: Helping You Understand The Teach Back Method helps you understand the information we are giving you. After you talk with the staff, tell them in your own words what you learned. This helps to make sure the staff has described each thing clearly. It also helps to explain things that may have been confusing. Before going home, make sure you can do these: ?? I can tell you about my procedure. ?? I can tell you how to care for my cut site. ?? I can tell you what I will do if I have swelling, redness, or warmth around my wound. Where can I learn more? [employer] http://www.radiologyinfo.org/en/info.cfm?pg=percabscessdrsharona Last Reviewed Date 2020-11-30 Consumer Information Use and Disclaimer This generalized information is a limited summary of diagnosis, treatment, and/or medication information. It is not meant to be comprehensive and should be used as a tool to help the user understand and/or assess potential diagnostic and treatment options. It does NOT include all information about conditions, treatments, medications, side effects, or risks that may apply to a specific patient. Itis not intended to be medical advice or a substitute for the medical advice, diagnosis, or treatment of a health care provider based on the health care provider's examination and assessment of a patient???s specific and unique circumstances. Patients must speak with a health care provider for complete information about their health, medical questions, and treatment options, including any risks orbenefits regarding use of medications. This information does not endorse any treatments or medications as safe, effective, or approved for treating a specific patient. [employer] and its affiliates disclaim any warranty or liability relating to this information or the use thereof. The use of this information is governed by the Terms of Use, available at https://www.[employer]kk[employer] Research.IActive/en/solutions/CAVI Video Shoppingicomp/about/fredo Copyright Copyright ?? 2020 [employer] and its affiliates and/or licensors. All rights reserved. Patient Education Abscess Incision and Drainage Discharge Instructions About this topic An abscess is a collection of pus under your skin. The doctors made a cut to open up the area and clean out the wound. Most of the time, the cut is not closed with stitches. The wound may be packed with a special gauze to keep it from closing too soon. Sometimes a small drain is placed. What care is needed at home? ?? Ask your doctor what you need to do when you go home. Make sure you ask questions if you do not understand what the doctor says. ?? Keep your wound covered with gauze until it is fully healed. ?? If you do not have any packing, soak the wound in warm soapy water a few times each day. ?? If you have packing, do not soak the wound. Your regular doctor will change the packing during your appointment. This will need to be repeated until the wound stops draining. Then you can begin soaking it in warm soapy water a few times each day. ?? If you have a drain in place, the doctor will give you special instructions on how to care for the drain. ?? Keep your wound dry unless you are soaking it in warm soapy water as instructed. ?? If the doctors order an antibiotic for you, be sure to take all of them, even if you start to feel better. What follow-up care is needed? ?? Your doctor may ask you to make visits to the office to check on your progress. Be sure to keep these visits. ?? Your doctor may change or take out your packing a few days after the procedure. ?? If you go home with a drain, your doctor will remove the tube after drainage has stopped and theinfection is gone. ?? If you have stitches or michael, you will need to have them taken out. Your doctor will often want to do this in 1 to 2 weeks. What drugs may be needed? Your doctor may order drugs to: ?? Help with pain ?? Fight an infection Will physical activity be limited? ?? You may have to limit your activity to help your wound heal. Talk to your doctor about the rightamount of activity for you. ?? Splints may be needed if you have an abscess in your arm, hand, or leg. This will help control motion to let the wound heal faster. What problems could happen? ?? Bleeding ?? Scarring ?? Infection may not clear up What can be done to prevent this health problem? ?? Practice proper hygiene. Practice good hand washing, especially before and after touching the cut site. ?? Do not share towels, razors, and other personal things with someone else. ?? Be careful when you shave your face, underarms, or legs to avoid scratching or cutting your skin. ?? If you cut yourself, keep the area clean and put petroleum jelly on it. ?? If your infection is caused by MRSA, ask your doctor how to try to get rid of this bacteria. When do I need to call the doctor? ?? You get a fever of 100.4??F (38??C) or higher and have a red rash all over your body with red eyes, diarrhea, and/or mouth sores. ?? You are confused or very sleepy. ?? To have your packing changed if your wound is packed. ?? You have a fever of 100.4??F (38??C) or higher or chills. ?? Your wound is swollen, red, or warm. ?? Your wound has thick yellow or green drainage. Teach Back: Helping You Understand The Teach Back Method helps you understand the information we are giving you. After you talk with the staff, tell them in your own words what you learned. This helps to make sure the staff has described each thing clearly. It also helps to explain things that may have been confusing. Before going home, make sure you can do these: ?? I can tell you about my procedure. ?? I can tell you how to care for my cut site. ?? I can tell you what I will do if I have swelling, redness, or warmth around my wound. Where can I learn more? [employer] Cho[employer] http://www.nhs.uk/Conditions/Abscess/Pages/Introduction.aspx Last Reviewed Date 2020-11-30 Consumer Information Use and Disclaimer This generalized information is a limited summary of diagnosis, treatment, and/or medication information. It is not meant to be comprehensive and should be used as a tool to help the user understand and/or assess potential diagnostic and treatment options. It does NOT include all information about conditions, treatments, medications, side effects, or risks that may apply to a specific patient. Itis not intended to be medical advice or a substitute for the medical advice, diagnosis, or treatment of a health care provider based on the health care provider's examination and assessment of a patient???s specific and unique circumstances. Patients must speak with a health care provider for complete information about their health, medical questions, and treatment options, including any risks orbenefits regarding use of medications. This information does not endorse any treatments or medications as safe, effective, or approved for treating a specific patient. [employer] and its affiliates disclaim any warranty or liability relating to this information or the use thereof. The use of this information is governed by the Terms of Use, available at https://www.[employer].com/en/solutions/lexicomp/about/fredo Copyright Copyright ?? 2020 [employer]. and its affiliates and/or licensors. All rights reserved. ER TENDER documented in this encounter Medications at Time of Discharge aspirin EC (ASPIRIN EC) 81 MG tablet Take 1 tablet (81 mg total) by mouth daily. furosemide 20 MG tablet Take by mouth daily. 05/01/2021 rosuvastatin 10 MG tablet Take 1 tablet (10 mg total) by mouth nightly at bedtime. 08/18/2021 ALPRAZolam 1 MG tablet nightly at bedtime. 07/04/2021 07/26/2023 benazepril 10 MG tablet Take by mouth nightly at bedtime. 08/23/2021 05/30/2023 cephALEXin 500 MG capsule Take 1 capsule (500 mg total) by mouth 4 (four) times daily for 10 days. 40 capsule 09/02/2021 09/12/2021 lisinopril 20 MG tablet Take 1 tablet (20 mg total) by mouth daily. 30 tablet 09/03/2021 07/26/2023 warfarin 3 MG tablet 07/21/2021 07/26/2023 documented as of this encounter Progress Notes * Jeanette Bauer, RD - 09/02/2021 11:13 AM CST CLINICAL DIETITIAN ASSESSMENT NUTRITION ASSESSMENT RD completing an initial assessment secondary to dietary consult. Initial History: Patient is a 80-year-old female admitted secondary to Weakness [R53.1] Abscess of left hand [L02.512] Fall at home, initial encounter [W19.XXXA, Y92.009]. Past Medical History: Diagnosis Date ??? CAD (coronary artery disease) ??? COVID-19 01/2021 ??? DVT (deep venous thrombosis) (CMS/HCC) left upper extremity ??? HTN (hypertension) ??? Mild aortic stenosis ??? Non-rheumatic mitral regurgitation ??? PAD (peripheral artery disease) (CMS/HCC) ??? Polio Weight history: No weight loss noted per MST on admission. No weight history available; only weights from current admission present. Diet history: No appetite issues per MST; however, intake suboptimal since admit. 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 No nausea, vomiting, diarrhea, constipation per review of the EMR. Chewing/swallowing problems: None noted per EMR Food allergies/intolerances: NKFA Cultural/Taoist food preferences: None noted Neuro: Oriented x 4 Cardiorespiratory: Room air Edema: Trace edema in RLE and LLE Skin: No open areas documented. Left lower extremity cellulitis. GI: Abd listed WDL. No BM documented. 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 Labs: Reviewed. No nutrition-related concerns at present. Nutrition-related meds: ??? aspirin EC 81 mg Oral Daily ??? atorvastatin 20 mg Oral Nightly at bedtime ??? cephALEXin 500 mg Oral 4 times per day ??? furosemide 20 mg Oral Daily ??? lisinopril 20 mg Oral Daily ??? warfarin (COUMADIN) pharmacy to dose Oral See Admin Instructions PRN: Zofran, Glycolax, Unadilla Anthropometrics: Admit Wt: 66.7 kg UBW: -- kg (%UBW: --%) IBW: 57 kg (%IBW: 85%) DW: 66.7 kg Ht Readings from Last 1 Encounters: 08/31/21 5' 5 (1.651 m) Wt Readings from Last 1 Encounters: 09/02/21 67.6 kg (149 lb) Body mass index is 24.79 kg/m??. (WNL for age) Admission weight: 66.7 kg (Date: 08/31/21; Method: Bed) Last 5 Recorded Weights 08/31/21 0824 08/31/21 1435 09/01/21 0404 09/02/21 0500 Weight: 70.8 kg (156 lb) 66.7 kg (147 lb) 68.9 kg (152 lb) 67.6 kg (149 lb) Weight up 2 lbs (1%) x 2 days. Estimated Nutrient Needs: Calories: 1668 kcal/day, based on 25 kcal/kg Protein: 67 gm/day, based on 1 g/kg Fluid: 1668 ml/day, based on 1 mL/kcal Current diet order: General -4 GM NA Ensure Plus BID Current diet appropriate? Yes, but recommend increasing diet to general, no added salt, to help promote intake Current intake sufficient to meet nutritional needs? No, patient consumed 625 kcal (meeting 37% of estimated energy needs) and 21.75g protein (meeting 32% of estimated protein needs) x 2 meals yesterday (breakfast refused). Fluid intake not meeting estimated fluid needs. Pain affecting PO intake? No Nutrition Education: No education provided. NUTRITION DIAGNOSIS Inadequate oral intake related to decreased appetite/intake as evidenced by intake meeting <75% of estimated nutrition needs. Nutrition risk: Moderate NUTRITION INTERVENTION Nutrition prescription: General/no added salt 1. Recommend a general, no added salt diet. 2. Ensure Plus BID. 3. Daily weights ordered; will monitor weight status. Discharge nutrition plan: Discharge needs assessed. Will provide/update discharge instructions as needed. MONITORING/EVALUATION 09/02/2021 Goals: 1. Intake of 75% of estimated kcal/protein needs x 2-3 days per review of [facility]/EMR on follow-up. 2. Weight to remain within 2% of current weight of 67.6 kg through follow-up. JEANETTE BAUER RD, LDN ER TENDER * Annabella Lopez RN - 09/02/2021 11:08 AM CST Problem: Discharge Planning Goal: Knowledge of discharge instructions Outcome: Adequate for Discharge Problem: Pain control/comfort Goal: Promote pain control/comfort Outcome: Adequate for Discharge Problem: Skin integrity, Impaired-wound Goal: Absence of new skin breakdown Outcome: Adequate for Discharge Goal: Evidence of wound healing Outcome: Adequate for Discharge Problem: Skin integrity, Impaired-pressure injury/ulcer Goal: Absence of new skin breakdown Outcome: Adequate for Discharge Goal: Evidence of pressure injury/ulcer healing Outcome: Adequate for Discharge Problem: Skin integrity, at risk Goal: Absence of new skin breakdown Outcome: Adequate for Discharge Problem: Moisture associated skin impairment Goal: Reduce moisture exposure Outcome: Adequate for Discharge Goal: Evidence of wound healing Outcome: Adequate for Discharge Goal: Evidence of pressure injury/ulcer healing Outcome: Adequate for Discharge Goal: Absence of new skin breakdown Outcome: Adequate for Discharge Problem: Pain Goal: Patient's pain/discomfort is manageable Description: Assess and monitor patient's pain using appropriate pain scale. Collaborate with interdisciplinary team and initiate plan and interventions as ordered. Re-assess patient's pain level 30 - 60 minutes after pain management intervention. Outcome: Adequate for Discharge Problem: Safety Goal: Patient will be injury [...] per policy, and non-skid footwear provided. Outcome: Adequate for Discharge Problem: Daily Care Goal: Daily care needs are met Description: Assess and monitor ability to perform self care and identify potential discharge needs. Outcome: Adequate for Discharge Problem: Psychosocial Needs Goal: Demonstrates ability to cope with hospitalization/illness Description: Assess and monitor patients ability to cope with his/her illness. Outcome: Adequate for Discharge Goal: Collaborate with patient/family/caregiver to identify patient specific goals for this hospitalization Outcome: Adequate for Discharge Problem: Discharge Barriers Goal: Patient's discharge needs are met Description: Collaborate with interdisciplinary team and initiate plans and interventions as needed. Outcome: Adequate for Discharge Problem: Mobility Goal: STG - Pt will ambulate Description: 50' with 2 w/w and CGA x 1 Outcome: Adequate for Discharge Goal: STG - Pt will ascend/descend stairs Description: X 1 for entrance to home and 2 w/w Outcome: Adequate for Discharge Problem: Transfers Goal: STG - Pt will perform bed mobility Description: With modified independence for home entry and exit from bed Outcome: Adequate for Discharge Problem: Reduced risk for falls/injury Goal: Reduced Risk for Falls/Injury Outcome: Adequate for Discharge Goal: Reduced Risk of Confusion (Acute vs Chronic) Outcome: Adequate for Discharge Goal: Reduced Risk of Symptomatic Depression Outcome: Adequate for Discharge Goal: Reduced Risk of Altered Elimination Outcome: Adequate for Discharge Goal: Reduced Risk of Dizziness/Vertigo/Balance Outcome: Adequate for Discharge Goal: Reduced Risk of Polypharmacy Outcome: Adequate for Discharge Problem: Bathing Goal: STG - Pt will bathe body by alternating sit/stand with Description: Mod. Leslie Outcome: Adequate for Discharge Problem: Grooming Goal: STG - Pt will complete grooming by alternating sit/stand with Description: Mod. independence Outcome: Adequate for Discharge Problem: Dressing: Lower Extremities Goal: STG - Pt will complete lower body dressing with Description: Mod. Leslie (AE as needed) Outcome: Adequate for Discharge Problem: Toileting Goal: STG - Pt will complete 3/3 toilet tasks (clothing up, clothing down, hygiene) with Description: Mod. Leslie Outcome: Adequate for Discharge ER TENDER * Kathryn Guzman João, RECEIVING ASSOCIATE [facility] - 09/02/2021 8:15 AM CST DAILY PROGRESS NOTE PATIENT: Enma Garza is a 80-year-old female : 1940 ADMISSION DATE: 08/31/2021 LOS: 0 days SUBJECTIVE Enma Garza is sitting up in chair at this time. States that she is awaiting her breakfast and that will help her feel a little stronger once she has something to eat. LLE feels better today. No additional concerns at this time. ASSESSMENT/PLAN #Cellulitis of the left leg ?? Erythremia and warmth noted to anterior left lower extremity, there is no swelling in the lower extremity; Improved today ?? Ceftriaxone 2 g IV x1 yesterday; change to PO Keflex today ?? Blood cultures with gram + cocci in 1/2 bottles #Ecchymosis of the left hand ?? X-ray of the left hand shows no acute fracture dislocation ?? Generalized ecchymosis of the upper left hand extending to the left wrist, no pain with movement, there is a small hematoma ?? Patient does not recall hitting her hand however she does report sleeping with her hand danglingoff the edge of the bed ?? There is no swelling, no concern for current bleeding, continue anticoagulation #CAD with chronic anticoagulation ?? Continue warfarin, pharmacy to dose General medical Full code Medications reviewed Continue warfarin, pharmacy to dose Vital signs routine Monitor intake and output General diet Ensure twice daily Consult dietitian Fall precautions PT/OT recommend home with assist - patient lives with daughter Up to chair with meals VT prophylaxis with warfarin and SCDs Pain: Tylenol & Unadilla PRN Bowel: Miralax PRN CBC, BMP, INR daily Discharge home today on oral Keflex Principal Problem: Cellulitis of left leg Active Problems: Fall at home, initial encounter Chronic anticoagulation Coronary artery disease involving [place] coronary artery of citizen [place] heart without angina pectoris Post-polio syndrome Traumatic ecchymosis of left hand Resolved Problems: * No resolved hospital problems. * OBJECTIVE Vital signs in the last 24 hours: Patient Vitals for the past 24 hrs: BP Temp Temp src Pulse Resp SpO2 Weight 09/02/21 0840 138/66 97.6 ??F (36.4 ??C) Tympanic 95 -- 96 % -- 09/02/21 0500 (!) 148/76 97.6 ??F (36.4 ??C) Tympanic 91 18 94 % 67.6 kg (149 lb) 09/01/21 1913 (!) 146/65 97.7 ??F (36.5 ??C) Tympanic 96 18 95 % -- 09/01/21 1300 (!) 120/93 97.7 ??F (36.5 ??C) Tympanic 96 16 96 % -- 09/01/21 0914 (!) 146/56 98.3 ??F (36.8 ??C) Tympanic 85 16 100 % -- MAP 24H CALCULATED (mmHg): 94 Temp (24hrs), Av.8 ??F (36.6 ??C), Min:97.6 ??F (36.4 ??C), Max:98.3 ??F (36.8 ??C) Intake/Output Summary (Last 24 hours) at 09/02/2021 0905 Last data filed at 09/02/2021 0840 Gross per 24 hour Intake 900 ml Output -- Net 900 ml Today's Weight: Last Recorded Weight 09/02/21 0500 Weight: 67.6 kg (149 lb) Weight change in the last 24 hours: an appropriate measurement is not found Scheduled Medications: ??? aspirin EC 81 mg Oral Daily ??? atorvastatin 20 mg Oral Nightly at bedtime ??? cephALEXin 500 mg Oral 4 times per day ??? furosemide 20 mg Oral Daily ??? lisinopril 20 mg Oral Daily ??? warfarin (COUMADIN) pharmacy to dose Oral See Admin Instructions PRN Medications: acetaminophen, HYDROcodone-acetaminophen, ondansetron, polyethylene glycol Active Infusions: Physical Exam Vitals and nursing note reviewed. Constitutional: General: She is not in acute distress. Appearance: Normal appearance. HENT: Head: Normocephalic and atraumatic. Right Ear: External ear normal. Left Ear: External ear normal. Nose: Nose normal. No congestion or rhinorrhea. Mouth/Throat: Mouth: Mucous membranes are moist. Pharynx: No oropharyngeal exudate or posterior oropharyngeal erythema. Eyes: Extraocular Movements: Extraocular movements intact. Pupils: Pupils are equal, round, and reactive to light. Cardiovascular: Rate and Rhythm: Normal rate and regular rhythm. Pulses: Normal pulses. Heart sounds: Normal heart sounds. No murmur heard. Pulmonary: Effort: Pulmonary effort is normal. No respiratory distress. Breath sounds: Normal breath sounds. Abdominal: General: Bowel sounds are normal. There is no distension. Palpations: Abdomen is soft. Musculoskeletal: General: Normal range of motion. Cervical back: Normal range of motion. Right lower leg: No edema. Left lower leg: No edema. Skin: General: Skin is warm and dry. Capillary Refill: Capillary refill takes less than 2 seconds. Findings: No rash. Neurological: Mental Status: She is alert and oriented to person, place, and time. Labs and Cultures: Recent Labs Lab 08/31/21 0850 09/01/2145809/02/21 05 WBC 11.0* 9.1 9.4 HGB 13.0 13.6 14.3 HCT 39.9 41.9 43.9 MCV 89.5 90.7 90.9 PLT 185 181 202 RBC 4.46 4.62 4.83 Recent Labs Lab 08/31/21 0850 09/01/21 0459 09/02/21 0524 NA 135* 136 137 K 3.8 4.0 3.8 CL 97* 99 97* CR 0.78 0.74 0.83 BUN 17 18 21 GFR 82* 87* 76* GLU 83 78 102* CA 8.6 8.6 8.7 Recent Labs Lab 08/31/21 0850 TROP 19 Recent Labs Lab 08/31/21 0850 LACTICACID 1.2 No results for input(s): BNP in the last 168 hours. Recent Labs Lab 09/01/21 0809/02/21 0524 INR 2.9* 3.2* Microbiology Results (last 14 days) Procedure Component Value Units Date/Time CULTURE, BACTERIA, BLOOD [[id number]] Collected: 09/01/21952 Order Status: Completed Lab Status: In process Updated: 09/01/21957 Specimen: BLOOD CULTURE, BACTERIA, BLOOD [[id number]] Collected: 09/01/21939 Order Status: Completed Lab Status: In process Updated: 09/01/21957 Specimen: BLOOD CORONAVIRUS (COVID 19) PCR [[id number]] Collected: 08/31/21 1523 Order Status: Completed Lab Status: In process Updated: 08/31/21 1621 Specimen: NASAL CULTURE, BACTERIA, BLOOD [[id number]] Collected: 08/31/21 0855 Order Status: Completed Lab Status: In process Updated: 08/31/21 0904 Specimen: BLOOD CULTURE, BACTERIA, BLOOD [[id number]] Collected: 08/31/21 0850 Order Status: Completed Lab Status: In process Updated: 08/31/21 0904 Specimen: BLOOD Signed SANDRINE TAN 9:05 AM 09/02/2021 Cosigned by Lester Liu MD at 09/04/2021 8:28 AM CDT ER TENDER * Danielle Lawrence [facility] - 09/02/2021 7:21 AM CST Warfarin - Pharmacy Dosing Service Note Enma Garza is a 80-year-old female for which pharmacy has been consulted to dose warfarin for DVT. Goal INR is 2-3. Warfarin Order Set Activated: Yes Warfarin Start Date: continuation from home Past Medical History: Diagnosis Date ??? CAD (coronary artery disease) ??? COVID-19 01/2021 ??? DVT (deep venous thrombosis) (CMS/HCC) left upper extremity ??? HTN (hypertension) ??? Mild aortic stenosis ??? Non-rheumatic mitral regurgitation ??? PAD (peripheral artery disease) (CMS/HCC) ??? Polio Home warfarin dose: 3MG DAILY Bridging agent: none Vitamin K use: No; (if yes, indicate date, dose, and route) Diet: PO Recent Labs Lab 08/31/21 0850 08/31/21 0850 09/01/21 0459 09/02/21 0524 HGB 13.0 -- 13.6 14.3 HCT 39.9 -- 41.9 43.9 PLT 185 -- 181 202 AST 39* < > 45* -- ALT 23 < > 23 -- ALKP 64 < > 61 -- ALB 3.3* < > 3.2* -- < > = values in this interval not displayed. Date INR Dose Received 3-11 2.9 3MG 3-12 3.2 NONE Drug interactions: Potential to increase INR: Potential to decrease INR: Potential to increase the risk of bleeding: ASA Hgb/Hct today are stable INR today is Supratherapeutic The plan is to HOLD dose once tonight and recheck an INR in the morning to assist with subsequent dosing. Pharmacy will continue to monitor labs and notes daily, adjusting the dose as clinically appropriate. Thank you for the consult. Pharmacy to dose per Dr. ROWDY LAWRENCE [facility] Phone number: [phone] 09/02/2021 7:21 AM ER TENDER * Karmen Henriquez RN - 09/01/2021 10:12 PM CST Problem: Discharge Planning Goal: Knowledge of discharge instructions Outcome: Progressing Problem: Pain control/comfort Goal: Promote pain control/comfort Outcome: Progressing Problem: Skin integrity, Impaired-wound Goal: Absence of new skin breakdown Outcome: Progressing Goal: Evidence of wound healing Outcome: Progressing Problem: Skin integrity, Impaired-pressure injury/ulcer Goal: Absence of new skin breakdown Outcome: Progressing Goal: Evidence of pressure injury/ulcer healing Outcome: Progressing Problem: Skin integrity, at risk Goal: Absence of new skin breakdown Outcome: Progressing Problem: Moisture associated skin impairment Goal: Reduce moisture exposure Outcome: Progressing Goal: Evidence of wound healing Outcome: Progressing Goal: Evidence of pressure injury/ulcer healing Outcome: Progressing Goal: Absence of new skin breakdown Outcome: Progressing Problem: Pain Goal: Patient's pain/discomfort is manageable Description: Assess and monitor patient's pain using appropriate pain scale. Collaborate with interdisciplinary team and initiate plan and interventions as ordered. Re-assess patient's pain level 30 - 60 minutes after pain management intervention. Outcome: Progressing Problem: Safety Goal: Patient will be injury [...] and identify potential discharge needs. Outcome: Progressing Problem: Psychosocial Needs Goal: Demonstrates ability to cope with hospitalization/illness Description: Assess and monitor patients ability to cope with his/her illness. Outcome: Progressing Goal: Collaborate with patient/family/caregiver to identify patient specific goals for this hospitalization Outcome: Progressing Problem: Discharge Barriers Goal: Patient's discharge needs are met Description: Collaborate with interdisciplinary team and initiate plans and interventions as needed. Outcome: Progressing Problem: Reduced risk for falls/injury Goal: Reduced Risk for Falls/Injury Outcome: Progressing Goal: Reduced Risk of Confusion (Acute vs Chronic) Outcome: Progressing Goal: Reduced Risk of Symptomatic Depression Outcome: Progressing Goal: Reduced Risk of Altered Elimination Outcome: Progressing Goal: Reduced Risk of Dizziness/Vertigo/Balance Outcome: Progressing Goal: Reduced Risk of Polypharmacy Outcome: Progressing ER TENDER * Ivy North PTA - 09/01/2021 3:24 PM CST Pt showing slow progression towards her therapeutic goals due to getting fatigued easily. ER TENDER * Ivy North PTA - 09/01/2021 3:19 PM CST 09/01/21 1332 Therapy Visit Ordering Provider Dr. Liu Subjective Pt supine in bed with head elevated and agrees to therapy. Pt states that her left hip is hurting and rates that pain a 10 pre treatment. Reason for admission Fall at home Verified Two Patient Identifiers Yes Patient consents to therapy Yes Acute Inpatient PT Time Calculation PT Start Time 1347 PT Stop Time 1416 PT Time Calculation (min) 29 min Precautions General Precautions Fall Risk Pain Pain Yes Pain Score 10 Location L hip Activity Tolerance Endurance Tolerates 20 - 30 min activity with rests Endurance Quality Fair Limiting Factors to Endurance Weakness;Fatigue;Acute deconditioning Bed Mobility Supine to Sit Mod assist to right TRANSFERS Sit to Stand Contact guard assist Bed to Chair Min assist Gait Gait Assistance Min assist Assistive Device 2 Wheeled walker Distance Ambulated (ft) 10 ft Pattern L Decreased stance time;Shuffle steps Balance Sitting - Static CGA;Support of both upper extremities Sitting - Dynamic CGA;Support of both upper extremities Standing - Static Min Assist;Support of both upper extremities PT Assessment PT Assessment Pt required mod A for bed mobility and cueing to correct her posterior lean. Pt then required min A for transfers and ambulation with FWW due to decrease stance time on L LE and bilateral lower extremity weakness. Pt positioned in chair with legs elevated with call light and phone within reach. Recommendation PT Recommendation PT during hospitalization;Home with assistance PT Equipment Recommended 2 Wheeled walker Plan PT Treatments/Interventions Gait Training;Therapeutic Exercises;Therapeutic Activities Progress Improving as expected PT Frequency Daily End of Session End of Session Safety Call light within reach ER TENDER * Natacha Cramer, OT - 09/01/2021 2:41 PM CST Instructions for Nursing: Assist x 1 with wheeled walker and gait belt Occupational Therapy Inpatient Evaluation Time In: 1333 Time Out: 1346 Total Evaluation Time: 13 minutes Ordering Physician: Angelita Lacy NP Patient: Enma Garza Location: Diagnosis: Weakness [R53.1] Abscess of left hand [L02.512] Fall at home, initial encounter [W19.XXXA, Y92.009] Past Medical History: Diagnosis Date ??? CAD (coronary artery disease) ??? COVID-19 01/2021 ??? DVT (deep venous thrombosis) (CMS/HCC) left upper extremity ??? HTN (hypertension) ??? Mild aortic stenosis ??? Non-rheumatic mitral regurgitation ??? PAD (peripheral artery disease) (CMS/HCC) ??? Polio Past Surgical History: Procedure Laterality Date ??? CARDIAC STENTS ??? VASCULAR SURGERY iliac SUBJECTIVE: Pain: 04/02 Pain Location: L hip Pt reporting that she would like to get out of bed secondary to L hip pain. Prior Level of Function: ADLs: Bathing: Independent Toileting: Independent UB Dressing: Independent LB Dressing: Independent Feeding: Independent Grooming: Independent IADLs: Meal Preparation: Independent Cleaning: No Laundry: Yes Working/Volunteering: No Driving: Yes Care of Others: No Functional Mobility & Transfers: Bed Mobility: Independent Toilet Transfers: Independent Tub/Shower Transfers: Independent Patient has been completing functional mobility with 2 wheeled walker. Home Environment: House Levels: 1 Entrance: 1 step Bathroom is equipped with tub/shower and shower chair. Living arrangements - The patient lives with their daughter. OBJECTIVE: Observation: Pt was supine in bed upon OTR arrival. Orientation Level: x 4 Cognition: Able to follow directions Affect: Pleasant and cooperative Vision: WFL Hearing: WFL Precautions/Restrictions: None Hand Dominance: Right Upper Extremity R L Coordination WFL WFL Sensation WFL WFL ROM WFL WFL Him Coder Strength 4-/5 4-/5 Shoulder flexion 4-/5 4-/5 Elbow flexion 4-/5 4-/5 Elbow extension 4-/5 4-/5 Comments: ADLs: Feeding: Leslie Toileting: Not Performed this Date UB Dressing: Not Performed this Date LB Dressing: Max A Grooming: Not Performed this Date Bathing: Not Performed this Date Transfers: Bed mobility/rolling: Mod A Supine <> sit: Mod A Sit <> stand: CGA Stand-pivot: [facility] Toilet/chair transfer: [facility] Assistive Device utilized during transfers: 2 wheeled walker Activity performed this session: Evaluation only this date. Education: Pt educated about purpose and benefit of participation in occupational therapy. ASSESSMENT: Enma Garza is a 80-year-old female who presents with a primary complaint of Weakness [R53.1] Abscess of left hand [L02.512] Fall at home, initial encounter [W19.XXXA, Y92.009]. Prior to admission, pt was living with her daughter and reports mod. Leslie with most IADLs, all ADLs and functional mobility. Pt is currently demonstrating decreased ability to complete ADLs and functional mobility secondary to pain, decreased strength, balance, and activity tolerance. Pt will benefit from participation in skilled OT services to improve independence in ADLs and functional mobility in order to return home with family assist. Recommended Interventions: Therapeutic Activity, Therapeutic Exercise and Self- Care Training Rehab Potential: Good Occupational Profile and History Complexity: Moderate (Expanded) Performance Skills Deficits: Low Performance Deficit Level: Low Clinical Decision Making: Low Evaluation Complexity Level: Low OT PLAN: Frequency: 1x/Day Duration: Duration of Observation Plan for next session: ADL and transfer training Anticipated Discharge at this time: Home with Assist Equipment Recommendations: AE for LE dressing, AD Safety at conclusion of Treatment: Upon OTR departure, pt sitting in recliner, call light within reach, and all needs met. ER TENDER * ZOIE Roger - 09/01/2021 11:27 AM CST DAILY PROGRESS NOTE PATIENT: Enma Garza is a 80-year-old female : 1940 ADMISSION DATE: 08/31/2021 LOS: 0 days SUBJECTIVE Enma Garza reports she is feeling tired and has little energy today. Her complaints of generalized fatigue she reports has been ongoing x months She does complain of LLE pain today. Patient states her daughter lives with her and is able to provide some assistance at home however patient states she feels very weak and tired and has been having trouble ambulating at home. ASSESSMENT/PLAN #Cellulitis of the left leg ?? Erythremia and warmth noted to anterior left lower extremity, there is no swelling in the lower extremity ?? Ceftriaxone 2 g IV daily for cellulitis ?? Obtain blood cultures x2 today prior to starting antibiotics #Ecchymosis of the left hand ?? X-ray of the left hand shows no acute fracture dislocation ?? Generalized ecchymosis of the upper left hand extending to the left wrist, no pain with movement, there is a small hematoma ?? Patient does not recall hitting her hand however she does report sleeping with her hand danglingoff the edge of the bed ?? There is no swelling, no concern for current bleeding, continue anticoagulation #CAD with chronic anticoagulation ?? Continue warfarin, pharmacy to dose General medical Full code Medications reviewed Continue warfarin, pharmacy to dose Vital signs routine Monitor intake and output General diet Ensure twice daily Consult dietitian Fall precautions PT/OT eval and treat Up to chair with meals VT prophylaxis with warfarin and SCDs Pain: Tylenol & Unadilla PRN Bowel: Miralax PRN CBC, BMP, INR daily Principal Problem: Cellulitis of left leg Active Problems: Fall at home, initial encounter Chronic anticoagulation Coronary artery disease involving [place] coronary artery of [place] heart without angina pectoris Post-polio syndrome Resolved Problems: * No resolved hospital problems. * OBJECTIVE Vital signs in the last 24 hours: Patient Vitals for the past 24 hrs: BP Temp Temp src Pulse Resp SpO2 Height Weight 09/01/21 0914 (!) 146/56 98.3 ??F (36.8 ??C) Tympanic 85 16 100 % -- -- 09/01/21 0404 (!) 158/75 98.7 ??F (37.1 ??C) Tympanic 84 20 96 % -- 68.9 kg (152 lb) 08/31/212301 -- 99.3 ??F (37.4 ??C) Tympanic -- -- -- -- -- 08/31/212136 -- 100.8 ??F (38.2 ??C) Tympanic -- -- -- -- -- 08/31/21 1928 (!) 162/76 100.4 ??F (38 ??C) Tympanic 91 20 94 % -- -- 08/31/21 1435 (!) 177/67 98.5 ??F (36.9 ??C) Tympanic 96 20 95 % 5' 5 (1.651 m) 66.7 kg (147 lb) MAP 24H CALCULATED (mmHg): 103 Temp (24hrs), Av.3 ??F (37.4 ??C), Min:98.3 ??F (36.8 ??C), Max:100.8 ??F (38.2 ??C) Intake/Output Summary (Last 24 hours) at 09/01/2021 1127 Last data filed at 09/01/2021 0918 Gross per 24 hour Intake 850 ml Output -- Net 850 ml Today's Weight: Last Recorded Weight 09/01/21 0404 Weight: 68.9 kg (152 lb) Weight change in the last 24 hours: an appropriate measurement is not found Scheduled Medications: ??? aspirin EC 81 mg Oral Daily ??? atorvastatin 20 mg Oral Nightly at bedtime ??? cefTRIAXone 2 g Intravenous Q24H ??? furosemide 20 mg Oral Daily ??? lisinopril 10 mg Oral Daily ??? warfarin (COUMADIN) pharmacy to dose Oral See Admin Instructions ??? warfarin 3 mg Oral Daily (warfarin) PRN Medications: acetaminophen, ondansetron, polyethylene glycol Active Infusions: Physical Exam Labs and Cultures: Recent Labs Lab 08/31/21 0850 09/01/21 0459 WBC 11.0* 9.1 HGB 13.0 13.6 HCT 39.9 41.9 MCV 89.5 90.7 PLT 185 181 RBC 4.46 4.62 Recent Labs Lab 08/31/21 0850 09/01/219 NA 135* 136 K 3.8 4.0 CL 97* 99 CR 0.78 0.74 BUN 17 18 GFR 82* 87* GLU 83 78 CA 8.6 8.6 Recent Labs Lab 08/31/21 0850 TROP 19 Recent Labs Lab 08/31/21 0850 LACTICACID 1.2 No results for input(s): BNP in the last 168 hours. Recent Labs Lab 08/31/21 0850 09/01/21 08 INR 2.5* 2.9* Microbiology Results (last 14 days) Procedure Component Value Units Date/Time CULTURE, BACTERIA, BLOOD [[id number]] Collected: 09/01/21 0953 Order Status: Completed Lab Status: In process Updated: 09/01/21957 Specimen: BLOOD CULTURE, BACTERIA, BLOOD [[id number]] Collected: 09/01/21 0940 Order Status: Completed Lab Status: In process Updated: 09/01/21957 Specimen: BLOOD CORONAVIRUS (COVID 19) PCR [[id number]] Collected: 08/31/21 1523 Order Status: Completed Lab Status: In process Updated: 08/31/21 1621 Specimen: NASAL CULTURE, BACTERIA, BLOOD [[id number]] Collected: 08/31/21 0855 Order Status: Completed Lab Status: In process Updated: 08/31/21 09 Specimen: BLOOD CULTURE, BACTERIA, BLOOD [[id number]] Collected: 08/31/21 0850 Order Status: Completed Lab Status: In process Updated: 08/31/21 09 Specimen: BLOOD Signed ZOIE ROGER 11:27 AM 09/01/2021 ER TENDER * Ivy North, WASTEWATER ANALYST LAB ANALYST - 09/01/2021 10:20 AM CST 09/01/21 09 Therapy Visit Ordering Provider Dr. Liu Subjective Pt supine in bed and asked if we could wait until this afternoon, as her hips are hurting and they just stuck her several times for blood. Will attempt to see patient this afternoon. Reason for admission Fall at home Verified Two Patient Identifiers Yes Patient consents to therapy No A * COREY Kendall - 09/01/2021 9:26 AM CSTSummary: MELONIE D/C Assessment SW assessed patient for discharge needs. Prior to hospitalization, patient reports she was living with her adult daughter in a 2 story house. She reported that she does not use the second level. Patient reported that she uses a cane and a walker at home. Patient reported no issues with ADLs prior to hospital admission. Patient reported she is currently receiving Lymphedema Therapy at [facility]. The patient stated she will never go to a snf, even for therapy if ever needed.Patient reported that she anticipates returning home with her daughter. SW will follow accordingly. 09/01/21922 Referral Data Referral Reason Discharge Planning Source of Information Patient Patient Information OB Patient < 19 yrs old No Primary Caregiver Self Support System Immediate family Baseline ADL's Functional Status Independent Living Arrangements Children Type of Residence Private residence Ambulation Assistance No Active DME Cane;Walker Bathing/Grooming Assistance No Dressing Assistance No Behavior Oriented;Cooperative Communication Talks;Understands speaking;Understands Filipino Current Services Being Provided Outpt therapy Other(comment) (Lymphedema Therapy) Socioeconomic Needs Caregiver Needed No At Risk of Abuse or Neglect No Adequate Resources Yes Psychological Needs: Mental health concerns No Suspected Drug or Alcohol Abuse No Inappropriate Patient/Family Behaviors No Difficult Adjustment to Diagnosis No Recent Hospitalization Recent Hospitalization within 30 days No Anticipated Discharge Needs Change in Living Arrangements No In-Home Care or Equipment Not Known at this time Vocational and/or Role Loss No Inability to Complete ADL's Not Known at this time Anticipated DC Plan Living Arrangements Children Support Systems Children Type of Residence Private residence Assistance Needed Yes Discharge assistance DME (Would like wheelchair) Patient expects to be discharged to: Home ER TENDER * Danielle Lawrence RP - 09/01/2021 8:41 AM CST Warfarin - Pharmacy Dosing Service Note Enma Garza is a 80-year-old female for which pharmacy has been consulted to dose warfarin for DVT. Goal INR is 2-3. Warfarin Order Set Activated: Yes Warfarin Start Date: continuation from home Past Medical History: Diagnosis Date ??? CAD (coronary artery disease) ??? COVID-19 01/2021 ??? DVT (deep venous thrombosis) (CMS/HCC) left upper extremity ??? HTN (hypertension) ??? Mild aortic stenosis ??? Non-rheumatic mitral regurgitation ??? PAD (peripheral artery disease) (CMS/HCC) ??? Polio Home warfarin dose: 3MG DAILY Bridging agent: none Vitamin K use: No; (if yes, indicate date, dose, and route) Diet: PO Recent Labs Lab 08/31/21 0850 08/31/21 0850 09/01/21 0459 HGB 13.0 -- 13.6 HCT 39.9 -- 41.9 PLT 185 -- 181 AST 39* < > 45* ALT 23 < > 23 ALKP 64 < > 61 ALB 3.3* < > 3.2* < > = values in this interval not displayed. Date INR Dose Received 3-10 2.5 3MG 3-11 2.9 3MG Drug interactions: Potential to increase INR: Potential to decrease INR: Potential to increase the risk of bleeding: ASA Warfarin Sensitivity: low, based on the following risk factors: age > or = to 80 and 1 moderate drug interaction. Hgb/Hct today are stable INR today is Therapeutic The plan is to give a 3 mg dose once tonight and recheck an INR in the morning to assist with subsequent dosing. Pharmacy will continue to monitor labs and notes daily, adjusting the dose as clinically appropriate. Thank you for the consult. Pharmacy to dose per Dr. ROWDY LAWRENCE [facility] Phone number: [phone] 09/01/2021 8:41 AM ER TENDER * Bertha Paige RN - 08/31/2021 9:31 PM CST Patient laying in bed. Temperature is slightly elevated, other vitals stable. Removed blankets, property underwriter will recheck temperature. Scheduled medications given. Telemetry continued, NSR. Call light within reach. Fall precautions in place. Plan of care followed. Problem: Discharge Planning Goal: Knowledge of discharge instructions 08/31/20212130 by Bertha Paige RN Outcome: Progressing 08/31/20212130 by Bertha Paige RN Outcome: Progressing Problem: Pain control/comfort Goal: Promote pain control/comfort 08/31/20212130 by Bertha Paige RN Outcome: Progressing 08/31/20212130 by Bertha Paige RN Outcome: Progressing Problem: Skin integrity, Impaired-wound Goal: Absence of new skin breakdown 08/31/20212130 by Bertha Paige RN Outcome: Progressing 08/31/20212130 by Bertha Paige RN Outcome: Progressing Goal: Evidence of wound healing 08/31/20212130 by Bertha Paige RN Outcome: Progressing 08/31/20212130 by Bertha Paige RN Outcome: Progressing Problem: Skin integrity, Impaired-pressure injury/ulcer Goal: Absence of new skin breakdown 08/31/20212130 by Bertha Paige RN Outcome: Progressing 08/31/20212130 by Bertha Paige RN Outcome: Progressing Goal: Evidence of pressure injury/ulcer healing 08/31/20212130 by Bertha Paige RN Outcome: Progressing 08/31/20212130 by Bertha Paige RN Outcome: Progressing Problem: Skin integrity, at risk Goal: Absence of new skin breakdown 08/31/20212130 by Bertha Paige RN Outcome: Progressing 08/31/20212130 by Bertha Paige RN Outcome: Progressing Problem: Moisture associated skin impairment Goal: Reduce moisture exposure 08/31/20212130 by Bertha Paige RN Outcome: Progressing 08/31/20212130 by Bertha Paige RN Outcome: Progressing Goal: Evidence of wound healing 08/31/20212130 by Bertha Paige RN Outcome: Progressing 08/31/20212130 by Bertha Paige RN Outcome: Progressing Goal: Evidence of pressure injury/ulcer healing 08/31/20212130 by Bertha Paige RN Outcome: Progressing 08/31/20212130 by Bertha Paige RN Outcome: Progressing Goal: Absence of new skin breakdown 08/31/20212130 by Bertha Paige RN Outcome: Progressing 08/31/20212130 by Bertha Paige RN Outcome: Progressing Problem: Pain Goal: Patient's pain/discomfort is manageable Description: Assess and monitor patient's pain using appropriate pain scale. Collaborate with interdisciplinary team and initiate plan and interventions as ordered. Re-assess patient's pain level 30 - 60 minutes after pain management intervention. 08/31/20212130 by Bertha Paige RN Outcome: Progressing 08/31/20212130 by Bertha Paige RN Outcome: Progressing Problem: Safety Goal: Patient will be injury [...] up per policy, and non-skid footwear provided. 08/31/20212130 by Bertha Paige RN Outcome: Progressing 08/31/20212130 by Bertha Paige RN Outcome: Progressing Problem: Daily Care Goal: Daily care needs are met Description: Assess and monitor ability to perform self care and identify potential discharge needs. 08/31/20212130 by Bertha Paige RN Outcome: Progressing 08/31/20212130 by Bertha Paige RN Outcome: Progressing Problem: Psychosocial Needs Goal: Demonstrates ability to cope with hospitalization/illness Description: Assess and monitor patients ability to cope with his/her illness. 08/31/20212130 by Bertha Paige RN Outcome: Progressing 08/31/20212130 by Bertha Paige RN Outcome: Progressing Goal: Collaborate with patient/family/caregiver to identify patient specific goals for this hospitalization 08/31/20212130 by Bertha Paige RN Outcome: Progressing 08/31/20212130 by Bertha Paige RN Outcome: Progressing Problem: Discharge Barriers Goal: Patient's discharge needs are met Description: Collaborate with interdisciplinary team and initiate plans and interventions as needed. 08/31/20212130 by Bertha Paige RN Outcome: Progressing 08/31/20212130 by Bertha Paige RN Outcome: Progressing Problem: Mobility Goal: STG - Pt will ambulate Description: 50' with 2 w/w and CGA x 1 08/31/20212130 by Bertha Paige RN Outcome: Progressing 08/31/20212130 by Bertha Paige RN Outcome: Progressing Goal: STG - Pt will ascend/descend stairs Description: X 1 for entrance to home and 2 w/w 08/31/20212130 by Bertha Paige RN Outcome: Progressing 08/31/20212130 by Bertha Paige RN Outcome: Progressing Problem: Transfers Goal: STG - Pt will perform bed mobility Description: With modified independence for home entry and exit from bed 08/31/20212130 by Bertha Paige RN Outcome: Progressing 08/31/20212130 by Bertha Paige RN Outcome: Progressing Problem: Reduced risk for falls/injury Goal: Reduced Risk for Falls/Injury Outcome: Progressing Goal: Reduced Risk of Confusion (Acute vs Chronic) Outcome: Progressing Goal: Reduced Risk of Symptomatic Depression Outcome: Progressing Goal: Reduced Risk of Altered Elimination Outcome: Progressing Goal: Reduced Risk of Dizziness/Vertigo/Balance Outcome: Progressing Goal: Reduced Risk of Polypharmacy Outcome: Progressing ER TENDER * Katharina Oliva [facility] - 08/31/2021 5:03 PM CST Warfarin - Pharmacy Dosing Service Note Enma Garza is a 80-year-old female for which pharmacy has been consulted to dose warfarin for DVT. Goal INR is 2-3. Warfarin Order Set Activated: Yes Warfarin Start Date: continuation from home Past Medical History: Diagnosis Date ??? CAD (coronary artery disease) ??? COVID-19 01/2021 ??? DVT (deep venous thrombosis) (CMS/HCC) left upper extremity ??? HTN (hypertension) ??? Mild aortic stenosis ??? Non-rheumatic mitral regurgitation ??? PAD (peripheral artery disease) (CMS/HCC) ??? Polio Home warfarin dose: 3mg daily Bridging agent: none Vitamin K use: No; (if yes, indicate date, dose, and route) Diet: PO Recent Labs Lab 08/31/21 0850 HGB 13.0 HCT 39.9 PLT 185 AST 39* ALT 23 ALKP 64 ALB 3.3* Date INR Dose Received 08/31/21 2.5 3mg Drug interactions: Potential to increase INR: Potential to decrease INR: Potential to increase the risk of bleeding: ASA 81mg Warfarin Sensitivity: low, based on the following risk factors: age > or = to 80 and 1 moderate drug interaction. Hgb/Hct today are stable INR today is Therapeutic The plan is to give a 3 mg dose once tonight and recheck an INR in the morning to assist with subsequent dosing. Pharmacy will continue to monitor labs and notes daily, adjusting the dose as clinically appropriate. Thank you for the consult. Pharmacy to dose per RASHAD Ayala-BC KATHARINA OLIVA RPH Phone number: [phone] 08/31/2021 5:04 PM ER TENDER * Hernán Richard, PT - 08/31/2021 4:14 PM CST Instructions for Nursing: Mod A x 1 for bed mobility and supine to sit. Sit to stand. Min A x 1 forambulation gait belt and 2 w/w. Physical Therapy Inpatient Evaluation Time In: 1529 Time Out: 1550 Enma Garza 316/01 Weakness [R53.1] Abscess of left hand [L02.512] Fall at home, initial encounter [W19.XXXA, Y92.009] Past Medical History: Diagnosis Date ??? Polio Past Surgical History: Procedure Laterality Date ??? CARDIAC STENTS ??? VASCULAR SURGERY Subjective: Orientation: x 4 Pain: 5/10 Pain Location: legs and L arm Patient reports that she lives at home and her daughter helps her. She thinks she was bitten by a spider a wile back and has been on antibiotics. She has a history of polio which she says affects herL LE. Home Environment: House Entrance: 1 step with No handrail. Living arrangements - The patient lives with their daughter. Patient has been ambulatory with 2 wheeled walker Objective: Patient was in bed upon pt arrival. Observation: Patient supine in bed. Pleasant and cooperative. Significant bruising on L UE. Precautions/Restrictions: Fall risk LE STRENGTH Left Right Hip flexion 4-/5 4+/5 Knee extension 3+/5 4+/5 Knee flexion 3+/5 4+/5 Dorsiflexion 3/5 4+/5 Transfers: Bed mobility/rolling: Mod A x 1 Supine to sit: Mod A x 1 Sit to stand: Min A x 1 Pivot: Min A Ambulation: Patient ambulated 15' with 2 w/w and CGA x 1 with gait belt. Short stride length luis manuel with decreased L LE stance phase and L foot angled laterally. Activity performed this session: Evaluation only this date. Assessment: Enma Garza is a 80-year-old female who presents with a primary complaint of Weakness [R53.1] Abscess of left hand [L02.512] Fall at home, initial encounter [W19.XXXA, Y92.009]. Patient is demonstrating deficits in Strength,Mobility and Transfers leading to decreased safety, increased fall risk and decreased independence.Skilled therapy is appropriate at this time to address these impairments and to move the patient towards their goal of returning home with modified independence. Based on today's session, we will likely be deciding between placement for custodial and home. Recommended Interventions: Therapeutic Activity, Therapeutic Exercise, Gait Training and Self-Care Training Rehab Potential: Good Personal Factors/Co-Morbidities Affecting Care: 3-4+ Examination of Body Systems: Low (1-2) Clinical Presentation of Patient: Stable Uncomplicated Eval Complexity: Low PT Plan: Frequency: Daily 5x/week Duration: Duration of observation Anticipated Discharge at this time: Home with Assist from family Plan for next session: Ambulate and exercise. Work on transfers. Safety at conclusion of Treatment: Patient in Bed, Call Light in Reach and Nursing in Room ER TENDER documented in this encounter H&P Notes * Angelita Lacy, ANP-BC - 08/31/2021 2:54 PM CST Images from the original note were not included. Admission History and Physical History Primary Care Provider: Torrey Chaney MD Admitting Provider: Lester Liu MD Attending Provider: Lester Liu MD Admission date: 08/31/2021 8:29 AM Enma Garza is a 80-year-old female with a history of polio, , Anxiety, hyperlipidemia, hypertension, history of lower extremity blood clot who presented to the ER with complaints of weakness. She presented to [facility] yesterday late in discharge early this morning for similar complaints with reportedly negative work-up. She woke up Saturday (08/28) morning with her left dorsal hand swollen, red, and painful. She went to [place] ER and was diagnosed with an insect bite and started on amoxicillin. She reports when she takes amoxicillin she does get very shaky and weak and her symptoms started approximately 2 to 3 days ago after starting the antibiotic. She did not take antibiotictoday. She denies any fevers, chills, dizziness, lightheadedness, or any other associated symptoms. Past Medical History: Diagnosis Date ??? CAD (coronary artery disease) ??? HTN (hypertension) ??? Mild aortic stenosis ??? Polio Past Surgical History: Procedure Laterality Date ??? CARDIAC STENTS ??? VASCULAR SURGERY No family history on file. Prior to Admission medications Medication Sig Start Date End Date Taking? Authorizing Provider aspirin EC (ASPIRIN EC) 81 MG tablet Take 81 mg by mouth daily. Yes Doc Abstract ALPRAZolam 1 MG tablet nightly at bedtime. 07/04/21 Doc Abstract amoxicillin 875 MG tablet 08/28/21 Doc Abstract benazepril 10 MG tablet 08/23/21 Doc Abstract furosemide 20 MG tablet 05/01/21 Doc Abstract rosuvastatin 10 MG tablet 08/18/21 Doc Abstract warfarin 3 MG tablet 07/21/21 Doc Abstract ??? aspirin EC 81 mg Oral Daily ??? atorvastatin 20 mg Oral Nightly at bedtime ??? furosemide 20 mg Oral Daily ??? lisinopril 10 mg Oral Daily ??? warfarin 3 mg Oral Daily (warfarin) acetaminophen, ondansetron, polyethylene glycol Allergies Allergen Reactions ??? Amoxil [Amoxicillin] Other (see comment) weakness ROS 10 point ROS negative except otherwise specified in HPI Physical Exam Filed Vitals: 08/31/21 0950 08/31/21 1000 08/31/21 1010 08/31/21 1435 BP: (!) 145/75 (!) 177/67 Pulse: 96 Resp: 20 Temp: 98.5 ??F (36.9 ??C) TempSrc: Tympanic SpO2: 94% 95% 95% 95% Weight: 66.7 kg (147 lb) Height: 5' 5 (1.651 m) Physical Exam Vitals reviewed. Constitutional: General: She is not in acute distress. Appearance: She is well-developed. HENT: Head: Normocephalic and atraumatic. Eyes: General: Left eye: No discharge. Pupils: Pupils are equal, round, and reactive to light. Cardiovascular: Rate and Rhythm: Normal rate and regular rhythm. Pulses: Intact distal pulses. Posterior tibial pulses are 1+ on the right side and 1+ on the left side. Heart sounds: Normal heart sounds, S1 normal and S2 normal. No murmur heard. Pulmonary: Effort: Pulmonary effort is normal. No respiratory distress. Breath sounds: No wheezing. Abdominal: General: Bowel sounds are normal. Palpations: Abdomen is soft. Musculoskeletal: General: Normal range of motion. Cervical back: Normal range of motion. Skin: General: Skin is warm and dry. Comments: Hard knot over left dorsal surface of hand Neurological: Mental Status: She is alert and oriented to person, place, and time. Recent Labs Lab 08/31/21 0850 WBC 11.0* RBC 4.46 HGB 13.0 HCT 39.9 MCV 89.5 MCH 29.1 MCHC 32.6* PLT 185 RDW 13.7 MPV 11.4* NEUC 7.31 LYMC 1.86 MONOC 1.67* EOSC 0.03 BASOC 0.06 Recent Labs Lab 08/31/21 0850 NA 135* K 3.8 CL 97* CO2 28.0 AGAP 10.0 BUN 17 CR 0.78 GFRNON 71* GFR 82* GLU 83 CA 8.6 TP 7.0 ALB 3.3* TBIL 1.0 ALKP 64 AST 39* ALT 23 Recent Labs Lab 08/31/21 0850 INR 2.5* Recent Labs Lab 08/31/21 0850 TROP 19 Recent Labs Lab 08/31/21 0850 NA 135* K 3.8 CL 97* CO2 28.0 BUN 17 CR 0.78 CA 8.6 GLU 83 AGAP 10.0 TP 7.0 ALB 3.3* ALT 23 WBC 11.0* HGB 13.0 PLT 185 No results found for this or any previous visit. No results found for this visit on 08/31/21 (from the past 840 hour(s)). No results found for this visit on 08/31/21 (from the past 840 hour(s)). No results found. Assessment Principal Problem: Fall at home, initial encounter SNOMED CT(R): FALL IN HOME Active Problems: Chronic anticoagulation SNOMED CT(R): LONG-TERM CURRENT USE OF ANTICOAGULANT Coronary artery disease involving citizen [place] coronary artery of citizen [place] heart without angina pectoris SNOMED CT(R): CORONARY ATHEROSCLEROSIS Post-polio syndrome SNOMED CT(R): POST POLIOMYELITIS SYNDROME Plan #Weakness ?? PT/OT to eval and treat ?? Possibly amoxicillin related, will hold ?? Post polio syndrome??? #Chronic anticoagulation ?? Hx LUE DVT ?? No issues ?? INR 2.5 ?? Pharmacy to dose warfarin #Hypertension ?? Elevated on admission ?? Follow ?? Consider increase in lisinopril if remains elevated #Left hand hematoma ?? Patient reports insect bite but did not witness occurrence or insect ?? Ecchymosis over dorsal hand and left lower arm ?? We will hold on antibiotics ?? Consider evacuation JESSICA LORENZO Cosigned by Lester Liu MD at 09/01/2021 8:29 AM DUSTER TENDER ER TENDER ER TENDER documented in this encounter Nursing Notes * Sherlyn Cantu RN - 09/01/2021 4:40 PM CST Family brought $220.00 into patient. This nurse requested that they take the money home. Chloé Lindsey is taking money home with her. ER TENDER documented in this encounter ED Notes * Adelso Adams MD - 09/01/2021 12:39 AM CSTAssociated Order(s): EKG Reading Chief Complaint Chief Complaint Patient presents with ??? Weakness History of Present Illness 80-year-old female complaining of weakness in the legs for 3 days. Patient was placed on amoxicillin recently for left hand bug bite and family thinks this may be the cause. Patient was seen at [place] ED earlier this morning and was discharged. At home daughter says the patient cannot ambulate well and so she sent patient back to ED for further evaluation. Patient lives with her daughter. Patient denies chest pain or vomiting. Patient denies cough. Patient denies fever. Patient's tetanus shot is up-to-date. Patient says her left leg is always weaker than the right due to polio. Symptoms are moderate to severe and constant. Medical History ALLERGIES: Allergies Allergen Reactions ??? Amoxil [Amoxicillin] Other (see comment) weakness MEDICATIONS: Prior to Admission medications Medication Sig Start Date End Date Taking? Authorizing Provider ALPRAZolam 1 MG tablet nightly at bedtime. 07/04/21 Yes Doc Abstract amoxicillin 875 MG tablet 08/28/21 Yes Doc Abstract aspirin EC (ASPIRIN EC) 81 MG tablet Take 81 mg by mouth daily. Yes Doc Abstract benazepril 10 MG tablet Take by mouth nightly at bedtime. 08/23/21 Yes Doc Abstract furosemide 20 MG tablet Take by mouth daily. 05/01/21 Yes Doc Abstract rosuvastatin 10 MG tablet Take 10 mg by mouth nightly at bedtime. 08/18/21 Yes Doc Abstract warfarin 3 MG tablet 07/21/21 Yes Doc Abstract PAST MEDICAL HISTORY: Past Medical History: Diagnosis Date ??? CAD (coronary artery disease) ??? COVID-19 01/2021 ??? DVT (deep venous thrombosis) (CMS/HCC) left upper extremity ??? HTN (hypertension) ??? Mild aortic stenosis ??? Non-rheumatic mitral regurgitation ??? PAD (peripheral artery disease) (CMS/HCC) ??? Polio PAST SURGICAL HISTORY: Past Surgical History: Procedure Laterality Date ??? CARDIAC STENTS ??? VASCULAR SURGERY iliac FAMILY HISTORY: Family History Family history unknown: Yes SOCIAL HISTORY: Social History Tobacco Use ??? Smoking status: Not on file Substance Use Topics ??? Alcohol use: Not on file ??? Drug use: Not on file Review of Systems Review of Systems Constitutional: Negative for chills and fever. HENT: Negative for voice change. Respiratory: Negative for wheezing. Cardiovascular: Negative for chest pain and leg swelling. Gastrointestinal: Positive for abdominal pain. Skin: Negative for color change. Neurological: Positive for weakness. Negative for speech difficulty. Psychiatric/Behavioral: Negative for agitation. All other systems reviewed and are negative. Physical Exam Filed Vitals: 08/31/21 1435 08/31/21 1928 08/31/21 2137 08/31/21 2302 BP: (!) 177/67 (!) 162/76 Pulse: 96 91 Resp: 20 20 Temp: 98.5 ??F (36.9 ??C) 100.4 ??F (38 ??C) 100.8 ??F (38.2 ??C) 99.3 ??F (37.4 ??C) TempSrc: Tympanic Tympanic Tympanic Tympanic SpO2: 95% 94% Weight: 66.7 kg (147 lb) Height: 5' 5 (1.651 m) Physical Exam Constitutional: General: She is not in acute distress. Appearance: She is well-developed. She is not ill-appearing. HENT: Head: Atraumatic. Neck: Comments: Normal inspection Cardiovascular: Rate and Rhythm: Normal rate and regular rhythm. Pulmonary: Effort: No respiratory distress. Breath sounds: Normal breath sounds. No stridor. No wheezing. Abdominal: Palpations: There is no mass. Tenderness: There is abdominal tenderness. There is no rebound. Comments: Mild epigastric tenderness Musculoskeletal: General: Normal range of motion. Right lower leg: No edema. Left lower leg: No edema. 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 Neurological: General: No focal deficit present. Mental Status: She is alert. Cranial Nerves: No cranial nerve deficit. Sensory: No sensory deficit. Comments: GCS 15, left leg slightly weaker compared to the right Psychiatric: Mood and Affect: Mood normal. Diagnostic Studies / Procedures ELECTROCARDIOGRAMS: Results for orders placed or performed during the hospital encounter of 08/31/21 ECG 12 lead Narrative [address] 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: : 1940 Requested By: ADELSO ADAMS Order Number: [id number] Reading MD: Viry Luna Measurements Intervals [place] Rate: 88 P: 61 CO: 182 QRS: 51 QRSD: 89 T: 61 QT: 363 QTc: 441 Interpretive Statements SINUS RHYTHM WITH OCCASIONAL SUPRAVENTRICULAR PREMATURE COMPLEXES ER TENDER LABORATORY STUDIES: Results for orders placed or performed during the hospital encounter of 08/31/21 PROTIME/INR, VENOUS Result Value Ref Range Protime 30.0 (H) 10.2 - 12.9 SEC INR 2.5 (H) 0.9 - 1.1 CBC W/DIFF AUTOMATED Result Value Ref Range WBC 11.0 (H) 4.0 - 10.8 x10'3/uL RBC 4.46 4.10 - 5.40 x10'6/uL HGB 13.0 12.0 - 16.0 G/DL HCT 39.9 36.0 - 47.0 % MCV 89.5 78.0 - 100.0 FL MCH 29.1 27.0 - 31.0 PG MCHC 32.6 (L) 33.0 - 36.0 G/DL RDW 13.7 11.5 - 14.5 % PLT 185 150 - 350 x10'3/uL MPV 11.4 (H) 7.4 - 10.4 FL Differential Comment NORMAL REFERENCE RANGE NOT ESTABLISHED FOR THE PROPORTIONAL LEUKOCYTE DIFFERENTIAL. SEG NEUTROPHILS 66.7 % LYMPHOCYTES 17.0 % MONOCYTES 15.2 % EOSINOPHILS 0.3 % BASOPHILS 0.5 % IMMATURE GRANS 0.3 % NRBC 0.0 % ABS. NEUTROPHILS 7.31 1.60 - 8.30 x10'3/uL ABS. LYMPHOCYTES 1.86 0.80 - 4.70 x10'3/uL ABS. MONOCYTES 1.67 (H) 0.00 - 1.50 x10'3/uL ABS. EOSINOPHILS 0.03 0.00 - 0.40 x10'3/uL ABS. BASOPHILS 0.06 0.00 - 0.20 x10'3/uL ABS. IMMATURE GRANULOCYTES 0.03 0.00 - 0.03 x10'3/uL ABS. NUCLEATED RBC'S 0.00 0.00 x10'3/uL TROPONIN, QUANT Result Value Ref Range TROPONIN I 19 0 - 51 ng/L COMPREHENSIVE METABOLIC PANEL Result Value Ref Range SODIUM 135 (L) 136 - 145 MMOL/L POTASSIUM 3.8 3.5 - 5.1 MMOL/L CHLORIDE S/P/B 97 (L) 98 - 107 MMOL/L CO2 28.0 21.0 - 32.0 MMOL/L GLUCOSE 83 70 - 99 MG/DL BUN 17 6 - 24 MG/DL CREATININE S/P/B 0.78 0.55 - 1.02 MG/DL CALCIUM 8.6 8.4 - 10.5 MG/DL BILIRUBIN TOTAL S/P/B 1.0 0.2 - 1.0 MG/DL ALKALINE PHOSPHATASE S/P/B 64 55 - 142 U/L AST 39 (H) 15 - 37 U/L ALT 23 14 - 59 U/L TOTAL PROTEIN S/P/B 7.0 6.4 - 8.2 G/DL ALBUMIN S/P/B 3.3 (L) 3.4 - 5.0 G/DL ANION GAP 10.0 5.0 - 15.0 MMOL/L OSMOLALITY (CALC) 281 MOSM/KG eGFR Non-Afr. Amer. 71 (L) >89 ML/MIN/1.73 M2 eGFR Afr. Amer. 82 (L) >89 ML/MIN/1.73 M2 GFR NOTES GFR REFERENCES: LACTIC ACID Result Value Ref Range LACTIC ACID 1.2 0.4 - 2.0 MMOL/L URINALYSIS Result Value Ref Range COLOR (U) YELLOW TRANSPARENCY SLIGHTLY CLOUDY Specific [place] (U) 1.015 1.000 - 1.025 U PH 5.0 5.0 - 8.0 LEUKOCYTE ESTERASE NEGATIVE NEGATIVE NITRITES NEGATIVE NEGATIVE PROTEIN (U) NEGATIVE NEGATIVE URINE GLUCOSE NEGATIVE NEGATIVE U KETONES 2+ (A) NEGATIVE UROBILINOGEN 0.2 <1.0 EU/DL BILIRUBIN (U) NEGATIVE NEGATIVE BLOOD TRACE (A) NEGATIVE WBC/HPF 0-5 0 - 5 /HPF RBC/HPF 0-5 0 - 5 /HPF EPI/HPF MODERATE /LPF BACTERIA (URINE) TRACE /HPF MUCUS PRESENT AMORPHOUS SEDIMENT PRESENT LIPASE Result Value Ref Range LIPASE 40 (L) 73 - 393 UNITS/L IMAGING STUDIES CT HEAD WO CON Final Result by User, [id number] (08/31 121) Examination: CT of the head without contrast. Exam time: 1143 hours. Clinical history: Alteration of consciousness. Confusion. Weakness. Comparison: 05/07/2015. Technique: Noncontrast axial scans from skull base to vertex. A dose lowering technique was used for this procedure, which may include, but is not limited to, dose reduction techniques, automated exposure control, the use of iterative reconstruction and ALARA/Image Gently techniques. Findings: There is prominence of the ventricles, fissures and sulci, somewhat greater than anticipated even allowing for age, compatible with mild diffuse cortical atrophy. This is unchanged. No shift of midline or mass effect is noted. Physiologic calcification in the basal ganglia is again evident. There is stable periventricular decreased attenuation, compatible with small vessel disease. No new areas of abnormal x-ray attenuation are identified. In particular, there is no mass, hemorrhage or sign of acute stroke. No extracerebral fluid collections. The mastoid air cells and visualized paranasal sinuses appear clear. IMPRESSION: 1. No acute intracranial process identified. 2. Stable cortical atrophy and small vessel disease. Ordered By: ADELSO ADAMS Interpreted By: Kaleb Fajardo MD, 08/31/2021 12:04 PM XR CHEST PORTABLE Final Result by User, [id number] (08/31 0905) Examination: Portable chest. Exam time: 0841 hours. Clinical history: Weakness. Comparison: None Technique: AP upright view. Findings: The heart is within normal limits for size. Pulmonary vascularity is within normal limits. The lungs and pleural spaces appear free of any active process. The visualized bony thorax is unremarkable for age. IMPRESSION: No acute disease. Ordered By: ADELSO ADAMS Interpreted By: Kaleb Fajardo MD, 08/31/2021 9:03 AM XR HAND LT 3V Final Result by User, [id number] (08/31 908) Examination: Left hand. Exam time: 0842 hours. Clinical history: Soreness. Bruising and swelling. Comparison: None. Technique: Three views. Findings: No fracture, dislocation or other acute bony abnormality is identified. There is osteopenia. There are osteoarthritic changes in the IP joints, first MCP and first CMC joints. No other significant bone or joint abnormality is noted.There is mild soft tissue swelling dorsally. The soft tissues are otherwise unremarkable. No soft tissue gas or foreign body is identified. IMPRESSION: 1. No evidence of acute osseous abnormality. 2. Osteopenia and osteoarthritis. 3. Mild dorsal soft tissue swelling. Ordered By: ADELSO ADAMS Interpreted By: Kaleb Fajardo MD, 08/31/2021 9:05 AM EKG Reading Date/Time: 09/01/2021 12:44 AM Performed by: Adelso Adams MD Authorized by: Lester Liu MD Interpreted by ED physician: no specific st-t changed. Rhythm: sinus rhythm Rate: normal Clinical impression: non-specific ECG ED Course / Medical Decision Making Patient able to walk some in the ED but need assistance Old records requested from [facility] took a long time to arrive and patient said initially she did not get a CT at [facility], therefore CT of the head was obtained here Daughter says she cannot take care of the patient at home therefore patient will be admitted [address] Liu agrees to admit MDM Number of Diagnoses or Management Options Abscess of left hand: minor Weakness: new and requires workup Amount and/or Complexity of Data Reviewed Clinical lab tests: reviewed Tests in the radiology section of CPT??: reviewed Obtain history from someone other than the patient: yes Discuss the patient with other providers: yes Independent visualization of images, tracings, or specimens: yes Risk of Complications, Morbidity, and/or Mortality Presenting problems: high Diagnostic procedures: high Management options: moderate Patient Progress Patient progress: stable Clinical Impression Weakness (Primary) Abscess of left hand Disposition: Admit Adelso Adams MD 09/01/21 0047 ER TENDER * Oliva Milian RN - 08/31/2021 9:32 AM CST Refax of release of records from radiology fax ER TENDER * Oliva Milian RN - 08/31/2021 8:20 AM CST Per ems from home where pt lives with daughter; ems reports that pt was seen and discharged from [facility] at approx 0200 this am for weakness; daughter called ems and wanted pt to be evaluated here for continued c/o weakness and pt states unable to walk. Ems states daughter told them that pt gets this way every time she takes amoxil. Started amoxil recently for ?bite to dorsum L hand. Pt states weakness began in past day or two. Pt c/o soreness to L hand, no other c/o pain. L hand ecchymotic and slightly swollen; no drainage. ER TENDER documented in this encounter Plan of Treatment Not on file documented as of this encounter Procedures Procedure Name Priority Date/Time Associated Diagnosis Comments PROTHROMBIN TIME, VENOUS Routine 5:24 AM DUSTER TENDER BASIC METABOLIC PANEL Routine 09/02/2021 5:24 AM DUSTER TENDER CBC W/DIFF AUTOMATED Routine 09/02/2021 5:24 AM DUSTER TENDER CULTURE, BACTERIA, BLOOD TIMED 9:53 AM DUSTER TENDER CULTURE, BACTERIA, BLOOD TIMED 9:40 AM DUSTER TENDER PROTHROMBIN TIME, VENOUS Routine 8:27 AM DUSTER TENDER COMPREHENSIVE METABOLIC PANEL Routine 09/01/2021 4:59 AM DUSTER TENDER CBC W/DIFF AUTOMATED Routine 09/01/2021 4:59 AM DUSTER TENDER ELECTROCARDIOGRAM REPORT Routine 12:44 AM DUSTER TENDER CORONAVIRUS (COVID 19) Routine 3:[address] HEAD WO CON STAT 08/31/2021 11:55 AM DUSTER TENDER HC URINALYSIS AUTO W/MICRO STAT 08/31/2021 9:32 AM DUSTER TENDER XR HAND LT 3V STAT 08/31/2021 8:56 AM DUSTER TENDER XR CHEST PORTABLE STAT 08/31/2021 8:5 6 AM DUSTER TENDER CULTURE, BACTERIA, BLOOD STAT 022 8:55 AM DUSTER TENDER PROTHROMBIN TIME, VENOUS STAT 8:50 AM DUSTER TENDER COMPREHENSIVE METABOLIC PANEL STAT 08/31/2021 8:50 AM DUSTER TENDER LACTIC ACID STAT 08/31/2021 8:50 AM DUSTER TENDER CULTURE, BACTERIA, BLOOD Routine 8:50 AM DUSTER TENDER CBC W/DIFF AUTOMATED STAT 08/31/2021 8:50 AM DUSTER TENDER TROPONIN, QUANT STAT 08/31/2021 8:50 AM DUSTER TENDER LIPASE STAT 08/31/2021 8:50 AM DUSTER TENDER ECG 12-LEAD STAT 08/31/2021 8:46 AM DUSTER TENDER documented in this encounter Results * (ABNORMAL) BASIC METABOLIC PANEL (09/02/2021 5:24 AM DUSTER TENDER) SODIUM S/P/B 137 136 - 145 MMOL/L 09/02/2021 6:15 AM DUSTER TENDER [facility] POTASSIUM S/P/B 3.8 3.5 - 5.1 MMOL/L 09/02/2021 6:15 AM DUSTER TENDER [facility] CHLORIDE S/P/B 97(L) 98 - 107 MMOL/L 09/02/2021 6:15 AM [facility] CO2 27.2 21.0 - 32.0 MMOL/L 09/02/2021 6:15 AM [facility] GLUCOSE 102(H) 70 - 99 MG/DL 09/02/2021 6:15 AM [facility] Comment: FASTING GLUCOSE 100 TO 125 MG/DL IS CONSISTENT WITH IMPAIRED FASTING GLUCOSE. FASTING GLUCOSE >125 MG/DL IS CONSISTENT WITH DIABETES. RANDOM GLUCOSE >200 MG/DL WITH HYPERGLYCEMIC SYMPTOMS IS CONSISTENT WITH DIABETES. PER ADA GUIDELINES BUN 21 6 - 24 MG/DL 09/02/2021 6:15 AM [facility] CREATININE S/P/B 0.83 0.55 - 1.02 MG/DL 09/02/2021 6:15 AM [facility] CALCIUM S/P/B 8.7 8.4 - 10.5 MG/DL 09/02/2021 6:15 AM [facility] ANION GAP 12.8 5.0 - 15.0 MMOL/L 09/02/2021 6:15 AM [facility] OSMOLALITY (CALC) 287 MOSM/KG 022 6:15 AM [facility] Comment:REFERENCE RANGE NOT ESTABLISHED EGFR NON-AFR. AMER. 66(L) >89 ML/MIN/1. 73 M2 09/02/2021 6:15 AM [facility] EGFR AFR. AMER. 76(L) >89 ML/MIN/1. 73 M2 09/02/2021 6:15 AM [facility] GFR NOTES GFR REFERENCE S: 09/02/2021 6:15 AM [facility] Comment: THE ESTIMATED GFR IS CALCULATED USING THE 2009 CKD-EPI EQUATION. THE FOLLOWING CATEGORIES FOR GRADING RENAL FUNCTION ARE RECOMMENDED BY THE INTERNATIONAL SOCIETY OF NEPHROLOGY (KDIGO 2012 CLINICAL PRACTICE GUIDELINE). G1,NORMAL OR HIGH: >89 ml/min/1.73 m2 G2,MILDLY DECREASED: 60-89 ml/min/1.73 m2 G3A,MILDLY TO MODERATELY DECREASED: 45-59 ml/min/1.73 m2 G3B,MODERATELY TO SEVERELY DECREASED: 30-44 ml/min/1.73 m2 G4,SEVERELY DECREASED: 15-29 ml/min/1.73 m2 G5,KIDNEY FAILURE: <15 ml/min/1.73 m2 09/02/2021 5:24 AM DUSTER TENDER [facility] Final Result [facility] [address] [place] [address], * (ABNORMAL) CBC W/DIFF AUTOMATED (09/02/2021 5:24 AM DUSTER TENDER) WBC 9.4 4.0 - 10.8 x10'3/uL 09/02/2021 6:13 AM [facility] RBC 4.83 4.10 - 5.40 x10'6/uL 09/02/2021 6:13 AM [facility] HGB 14.3 12.0 - 16.0 G/DL 09/02/2021 6:13 AM [facility] HCT 43.9 36.0 - 47.0 % 09/02/2021 6:13 AM [facility] MCV 90.9 78.0 - 100.0 FL 09/02/2021 6:13 AM [facility] MCH 29.6 27.0 - 31.0 PG 09/02/2021 6:13 AM [facility] MCHC 32.6(L) 33.0 - 36.0 G/DL 09/02/2021 6:13 AM [facility] RDW 14.1 11.5 - 14.5 % 09/02/2021 6:13 AM [facility] PLT 202 150 - 350 x10'3/uL 09/02/2021 6:13 AM [facility] MPV 11.8(H) 7.4 - 10.4 FL 09/02/2021 6:13 AM [facility] DIFFERENTIAL COMMENT NORMAL REFERENCE RANGE NOT ESTABLISHED FOR THE PROPORTIONAL LEUKOCYTE DIFFERENTIAL. 09/02/2021 6:13 AM [facility] SEG NEUTROPHILS 64.3 % 6:13 AM [facility] LYMPHOCYTES 18.9 % 09/02/2021 6:13 AM [facility] MONOCYTES 14.8 % 09/02/2021 6:13 AM [facility] EOSINOPHILS 1.3 % 09/02/2021 6:13 AM [facility] BASOPHILS 0.4 % 09/02/2021 6:13 AM [facility] IMMATURE GRANS % 0.3 % 09/03/19 6:13 AM [facility] NRBC 0.0 % 09/02/2021 6:13 AM [facility] ABS. NEUTROPHILS 6.03 1.60 - 8.30 x10'3/uL 09/02/2021 6:13 AM [facility] ABS. LYMPHOCYTES 1.77 0.80 - 4.70 x10'3/uL 09/02/2021 6:13 AM [facility] ABS. MONOCYTES 1.39 0.00 - 1.50 x10'3/uL 09/02/2021 6:13 AM [facility] ABS. EOSINOPHILS 0.12 0.00 - 0.40 x10'3/uL 09/02/2021 6:13 AM [facility] ABS. BASOPHILS 0.04 0.00 - 0.20 x10'3/uL 09/02/2021 6:13 AM [facility] ABS. IMMATURE GRANULOCYTES 0.03 0.00 - 0.03 x10'3/uL 09/02/2021 6:13 AM [facility] ABS. NUCLEATED RBC'S 0.00 0.00 x10'3/uL 09/02/2021 6:13 AM [facility] 09/02/2021 5:24 AM DUSTER TENDER [facility] Final Result [facility] [address] [place] [phone], * (ABNORMAL) PROTIME/INR, VENOUS (09/02/2021 5:24 AM DUSTER TENDER) PROTIME 39.2(H) 10.2 - 12.9 SEC 09/02/2021 6:09 AM DUSTER TENDER [facility] INR 3.2(H) 0.9 - 1.1 09/02/2021 6:09 AM DUSTER TENDER [facility] 09/02/2021 5:24 AM DUSTER TENDER Lester Liu MD LABORATORY Final Result Performing Organization Address City/[facility]/ZIP Co de Phone Number [facility] [address] [place] [phone], * CULTURE, BACTERIA, BLOOD (09/01/2021 9:53 AM DUSTER TENDER) SPEC DESCRIPTION BLOOD 09/01/2021 9:01 AM DUSTER TENDER [facility] SPECIAL REQUESTS NO SPECIAL REQUEST 09/01/2021 9:01 AM DUSTER TENDER [facility] CULTURE RESULT NO GROWTH 5 DAYS 09/06/2021 11:44 AM CDT [facility] BLOOD SPECIMEN OBTAINED FOR BLOOD CULTURE / Unknown 09/01/2021 9:53 AM DUSTER TENDER 09/01/2021 9:58 AM DUSTER TENDER [facility] MICROBIOLOGY - GENERAL ORDERA BLES Final Result Performing Organization Address City/[facility]/ZIP Co de Phone Number [facility] [address] [place] [phone], * CULTURE, BACTERIA, BLOOD (09/01/2021 9:40 AM DUSTER TENDER) SPEC DESCRIPTION BLOOD 09/01/2021 9:01 AM DUSTER TENDER [facility] SPECIAL REQUESTS NO SPECIAL REQUEST 09/01/2021 9:01 AM DUSTER TENDER [facility] CULTURE RESULT NO GROWTH 5 DAYS 09/06/2021 11:44 AM CDT [facility] BLOOD SPECIMEN OBTAINED FOR BLOOD CULTURE / Unknown 09/01/2021 9:40 AM DUSTER TENDER 09/01/2021 9:58 AM DUSTER TENDER [facility] MICROBIOLOG[facility] - GENERAL ORDERA BLES Final Result Performing Organization Address [facility] Co de Phone Number [facility] [address] [place] [address], * (ABNORMAL) PROTIME/INR, VENOUS (09/01/2021 8:27 AM DUSTER TENDER) PROTIME 35.6(H) 10.2 - 12.9 SEC 09/01/2021 8:38 AM DUSTER TENDER [facility] INR 2.9(H) 0.9 - 1.1 09/01/2021 8:38 AM DUSTER TENDER [facility] 09/01/2021 8:27 AM DUSTER TENDER Lester Liu MD LABORATORY Final Result Performing Organization Address [facility] Co de Phone Number [facility] [address] [place] [address], * (ABNORMAL) COMPREHENSIVE METABOLIC PANEL (09/01/2021 4:59 AM DUSTER TENDER) SODIUM S/P/B 136 136 - 145 MMOL/L 09/01/2021 5:46 AM DUSTER TENDER [facility] POTASSIUM S/P/B 4.0 3.5 - 5.1 MMOL/L 09/01/2021 5:46 AM DUSTER TENDER [facility] CHLORIDE S/P/B 99 98 - 107 MMOL/L 09/01/2021 5:46 AM DUSTER TENDER [facility] CO2 26.0 21.0 - 32.0 MMOL/L 09/01/2021 5:46 AM DUSTER TENDER [facility] GLUCOSE 78 70 - 99 MG/DL 09/01/2021 5:46 AM [facility] Comment: FASTING GLUCOSE 100 TO 125 MG/DL IS CONSISTENT WITH IMPAIRED FASTING GLUCOSE. FASTING GLUCOSE >125 MG/DL IS CONSISTENT WITH DIABETES. RANDOM GLUCOSE >200 MG/DL WITH HYPERGLYCEMIC SYMPTOMS IS CONSISTENT WITH DIABETES. PER ADA GUIDELINES BUN 18 6 - 24 MG/DL 09/01/2021 5:46 AM [facility] CREATININE S/P/B 0.74 0.55 - 1.02 MG/DL 09/01/2021 5:46 AM [facility] CALCIUM S/P/B 8.6 8.4 - 10.5 MG/DL 09/01/2021 5:46 AM [facility] BILIRUBIN TOTAL S/P/B 1.1(H) 0.2 - 1.0 MG/DL 09/01/2021 5:46 AM [facility] Comment: THIS ASSAY IS NOT RECOMMENDED FOR PATIENTS UNDERGOING TREATMENT WITH ELTROMBOPAG DUE TO THE POTENTIAL FOR FALSELY ELEVATED RESULTS. ALKALINE PHOSPHATASE S/P/B 61 55 - 142 U/L 09/01/2021 5:46 AM [facility] AST 45(H) 15 - 37 U/L 09/01/2021 5:46 AM [facility] ALT 23 14 - 59 U/L 09/01/2021 5:46 AM [facility] TOTAL PROTEIN S/P/B 7.0 6.4 - 8.2 G/DL 09/01/2021 5:46 AM [facility] ALBUMIN S/P/B 3.2(L) 3.4 - 5.0 G/DL 09/01/2021 5:46 AM [facility] ANION GAP 11.0 5.0 - 15.0 MMOL/L 09/01/2021 5:46 AM [facility] OSMOLALITY (CALC) 283 MOSM/KG 022 5:46 AM [facility] Comment:REFERENCE RANGE NOT ESTABLISHED EGFR NON-AFR. AMER. 75(L) >89 ML/MIN/1. 73 M2 09/01/2021 5:46 AM [facility] EGFR AFR. AMER. 87(L) >89 ML/MIN/1. 73 M2 09/01/2021 5:46 AM DUSTER TENDER [facility] GFR NOTES GFR REFERENCE S: 09/01/2021 5:46 AM DUSTER TENDER [facility] Comment: THE ESTIMATED GFR IS CALCULATED USING THE 2009 CKD-EPI EQUATION. THE FOLLOWING CATEGORIES FOR GRADING RENAL FUNCTION ARE RECOMMENDED BY THE INTERNATIONAL SOCIETY OF NEPHROLOGY (KDIGO 2012 CLINICAL PRACTICE GUIDELINE). G1,NORMAL OR HIGH: >89 ml/min/1.73 m2 G2,MILDLY DECREASED: 60-89 ml/min/1.73 m2 G3A,MILDLY TO MODERATELY DECREASED: 45-59 ml/min/1.73 m2 G3B,MODERATELY TO SEVERELY DECREASED: 30-44 ml/min/1.73 m2 G4,SEVERELY DECREASED: 15-29 ml/min/1.73 m2 G5,KIDNEY FAILURE: <15 ml/min/1.73 m2 09/01/2021 4:59 AM DUSTER TENDER Angelita Lacy [facility] Final Res ult [facility] [address] [place] [address], * (ABNORMAL) CBC W/DIFF AUTOMATED (09/01/2021 4:59 AM DUSTER TENDER) WBC 9.1 4.0 - 10.8 x10'3/uL 09/01/2021 5:33 AM DUSTER TENDER [facility] RBC 4.62 4.10 - 5.40 x10'6/uL 09/01/2021 5:33 AM [facility] HGB 13.6 12.0 - 16.0 G/DL 09/01/2021 5:33 AM DUSTER TENDER [facility] HCT 41.9 36.0 - 47.0 % 09/01/2021 5:33 AM [facility] MCV 90.7 78.0 - 100.0 FL 09/01/2021 5:33 AM [facility] MCH 29.4 27.0 - 31.0 PG 09/01/2021 5:33 AM [facility] MCHC 32.5(L) 33.0 - 36.0 G/DL 09/01/2021 5:33 AM [facility] RDW 13.6 11.5 - 14.5 % 09/01/2021 5:33 AM [facility] PLT 181 150 - 350 x10'3/uL 09/01/2021 5:33 AM [facility] MPV 11.7(H) 7.4 - 10.4 FL 09/01/2021 5:33 AM [facility] DIFFERENTIAL COMMENT NORMAL REFERENCE RANGE NOT ESTABLISHED FOR THE PROPORTIONAL LEUKOCYTE DIFFERENTIAL. 09/01/2021 5:33 AM [facility] SEG NEUTROPHILS 63.3 % 5:33 AM [facility] LYMPHOCYTES 19.7 % 09/01/2021 5:33 AM [facility] MONOCYTES 15.4 % 09/01/2021 5:33 AM [facility] EOSINOPHILS 0.8 % 09/01/2021 5:33 AM [facility] BASOPHILS 0.4 % 09/01/2021 5:33 AM [facility] IMMATURE GRANS % 0.4 % 09/02/19 5:33 AM [facility] NRBC 0.0 % 09/01/2021 5:33 AM [facility] ABS. NEUTROPHILS 5.78 1.60 - 8.30 x10'3/uL 09/01/2021 5:33 AM [facility] ABS. LYMPHOCYTES 1.80 0.80 - 4.70 x10'3/uL 09/01/2021 5:33 AM [facility] ABS. MONOCYTES 1.41 0.00 - 1.50 x10'3/uL 09/01/2021 5:33 AM [facility] ABS. EOSINOPHILS 0.07 0.00 - 0.40 x10'3/uL 09/01/2021 5:33 AM [facility] ABS. BASOPHILS 0.04 0.00 - 0.20 x10'3/uL 09/01/2021 5:33 AM [facility] [employer] ABS. IMMATURE GRANULOCYTES 0.04(H) 0.00 - 0.03 x10'3/uL 09/01/2021 5:33 AM [employer] [facility] ABS. NUCLEATED RBC'S 0.00 0.00 x10'3/uL 09/01/2021 5:33 AM [employer] [facility] 09/01/2021 4:59 AM [employer] Angelita Lacy [facility] Final Res ult [facility] [address] [place] [address], * EKG Reading (09/01/2021 12:44 AM [employer]) Narrative Adelso Adams MD - 09/01/2021 12:44 AM [employer] Adelso Adams MD ? 09/01/2021 12:47 AM EKG Reading Date/Time: 09/01/2021 12:44 AM Performed by: Adelso Adams MD Authorized by: Lester Liu MD Interpreted by ED physician: no specific st-t changed. Rhythm: sinus rhythm Rate: normal Clinical impression: non-specific ECG Lester Liu MD [facility] ICES Final Result * CORONAVIRUS (COVID 19) PCR (08/31/2021 3:23 PM [employer]ENDER) SPEC DESCRIPTION NASAL 09/01/19 3:25 PM [employer] [facility] CORONAVIRUS SARS COV 2 PCR (RESP) NEGATIVE NEGATIVE 09/01/2021 7:49 PM [employer] [facility] Comment: THE SARS-CoV-2 TEST HAS BEEN AUTHORIZED BY THE FDA UNDER AN EUA FOR USE BY AUTHORIZED LABORATORIES. PERFORMED BY NUCLEIC ACID AMPLIFICATION PCR FIRST TEST NO 08/31/2021 3:25 PM [employer] [facility] EMPLOYED IN HEALTHCARE NO 08/31/2021 3:25 PM [employer] [facility] SYMPTOMATIC DEFINED BY CDC NO 08/31/2021 3:25 PM [employer] [facility] HOSPITALIZATION STATUS YES 08/31/2021 3:25 PM [employer] [facility] PATIENT IN ICU NO 08/31/2021 3:25 PM [employer] [facility] RESIDENT OF CONGREGATE CARE NO 08/31/2021 3:25 PM [employer] [facility] NASAL STRUCTURE / Unknown 08/31/2021 3:23 PM [employer] Angelita Lacy [facility] MICROBIOLOGY - GENERAL OR DERABLES Final Result [facility] [address] [place] [address], [place] [phone] [facility] [address] [facility] [place] [address], [place] [phone] * CT HEAD WO CON (08/31/2021 11:55 AM DUSTER TENDER) Anatomical Region Laterality Modality Head Computed Tomogra phy 08/31/2021 12:0 4 PM DUSTER TENDER Impressions 08/31/2021 12:10 PM DUSTER TENDER IMPRESSION: 1. No acute intracranial process identified. 2. Stable cortical atrophy and small vessel disease. Ordered By: ADELSO ADAMS Interpreted By: Kaleb Fajardo MD, 08/31/2021 12:04 PM Narrative 08/31/2021 12:10 PM DUSTER TENDER Examination: CT of the head without contrast. Exam time: 1143 hours. Clinical history: Alteration of consciousness. Confusion. Weakness. Comparison: 05/07/2015. Technique: Noncontrast axial scans from skull base to vertex. ??A dose lowering technique was used for this procedure, which may include, but is not limited to, dose reduction techniques, automated exposure control, the use of iterative reconstruction and ALARA/Image Gently techniques. Findings: There is prominence of the ventricles, fissures and sulci, somewhat greater than anticipated even allowing for age, compatible with mild diffuse cortical atrophy. This is unchanged. No shift of midline or mass effect is noted. Physiologic calcification in the basal ganglia is again evident. There is stable periventricular decreased attenuation, compatible with small vessel disease. No new areas of abnormal x-ray attenuation are identified. In particular, there is no mass, hemorrhage or sign of acute stroke. No extracerebral fluid collections. The mastoid air cells and visualized paranasal sinuses appear clear. Procedure Note Kaleb Fajardo MD - 08/31/2021 Examination: CT of the head without contrast. Exam time: 1143 hours. Clinical history: Alteration of consciousness. Confusion. Weakness. Comparison: 05/07/2015. Technique: Noncontrast axial scans from skull base to vertex. A doselowering technique was used for this procedure, which may include, but isnot limited to, dose reduction techniques, automated exposure control, theuse of iterative reconstruction and ALARA/Image Gently techniques. Findings: There is prominence of the ventricles, fissures and sulci,somewhat greater than anticipated even allowing for age, compatible withmild diffuse cortical atrophy. This is unchanged. No shift of midline ormass effect is noted. Physiologic calcification in the basal ganglia isagain evident. There is stable periventricular decreased attenuation,compatible with small vessel disease. No new areas of abnormal x-rayattenuation are identified. In particular, there is no mass, hemorrhage orsign of acute stroke. No extracerebral fluid collections. The mastoid aircells and visualized paranasal sinuses appear clear. IMPRESSION: 1. No acute intracranial process identified. 2. Stable cortical atrophy and small vessel disease. Ordered By: ADELSO ADAMS Interpreted By: Kaleb Fajardo MD, 08/31/2021 12:04 PM Adelso Adams MD CT Final Result * (ABNORMAL) URINALYSIS (08/31/2021 9:32 AM DUSTER TENDER) COLOR (U) YELLOW 08/31/2021 10:03 AM DUSTER TENDER [facility] TRANSPARENCY SLIGHTLY CLOUDY 08/31/2021 10:03 AM DUSTER TENDER [facility] SPECIFIC GRAVITY (U) 1.015 1.000 - 1.025 08/31/2021 10:03 AM [facility] U PH 5.0 5.0 - 8.0 08/31/2021 10:03 AM [facility] LEUKOCYTES (U) NEGATIVE NEGATIVE 08/31/2021 10:03 AM [facility] NITRITES NEGATIVE NEGATIVE 08/31/2021 10:03 AM [facility] PROTEIN (U) NEGATIVE NEGATIVE 08/31/2021 10:03 AM [facility] URINE GLUCOSE NEGATIVE NEGATIVE 08/31/2021 10:03 AM [facility] KETONES MG/DL (U) 2+(A) NEGATIVE 08/31/2021 10:03 AM [facility] UROBILINOGEN 0.2 <1.0 EU/DL 08/31/2021 10:03 AM [facility] BILIRUBIN (U) NEGATIVE NEGATIVE 08/31/2021 10:03 AM [facility] BLOOD (U) TRACE(A) NEGATIVE 08/31/2021 10:03 AM DUSTER TENDER [facility] WBC/HPF 0-5 0 - 5 /HPF 08/31/2021 10:03 AM [facility] RBC/HPF 0-5 0 - 5 /HPF 08/31/2021 10:03 AM [facility] EPI/HPF MODERATE /LPF 08/31/2021 10:03 AM [facility] BACTERIA (U) TRACE /HPF 08/31/2021 10:03 AM DUSTER TENDER [facility] MUCUS PRESENT 08/31/2021 10:03 AM DUSTER TENDER [facility] AMORPHOUS SEDIMENT PRESENT 08/31/2021 10:03 AM DUSTER TENDER [facility] URINE, STRAIGHT CATH 08/31/2021 9:32 AM DUSTER TENDER us Adelso Adams MD URINE ORDERABLES Final Result [facility] [address] [place] [address], * XR HAND LT 3V (08/31/2021 8:56 AM DUSTER TENDER) Anatomical Region Laterality Modality Hand Radiographic Marion ging 08/31/2021 9:05 AM DUSTER TENDER Impressions 08/31/2021 9:08 AM DUSTER TENDER IMPRESSION: 1. No evidence of acute osseous abnormality. 2. Osteopenia and osteoarthritis. 3. Mild dorsal soft tissue swelling. Ordered By: ADELSO ADAMS Interpreted By: Kaleb Fajardo MD, 08/31/2021 9:05 AM Narrative 08/31/2021 9:08 AM DUSTER TENDER Examination: Left hand. Exam time: 0842 hours. Clinical history: Soreness. Bruising and swelling. Comparison: None. Technique: Three views. Findings: No fracture, dislocation or other acute bony abnormality is identified. ??There is osteopenia. There are osteoarthritic changes in the IP joints, first MCP and first CMC joints. No other significant bone or joint abnormality is noted.There is mild soft tissue swelling dorsally. The soft tissues are otherwise unremarkable. No soft tissue gas or foreign body is identified. Procedure Note Kaleb Fajardo MD - 08/31/2021 Examination: Left hand. Exam time: 0842 hours. Clinical history: Soreness. Bruising and swelling. Comparison: None. Technique: Three views. Findings: No fracture, dislocation or other acute bony abnormality isidentified. There is osteopenia. There are osteoarthritic changes in theIP joints, first MCP and first CMC joints. No other significant bone orjoint abnormality is noted.There is mild soft tissue swelling dorsally.The soft tissues are otherwise unremarkable. No soft tissue gas or foreignbody is identified. IMPRESSION: 1. No evidence of acute osseous abnormality. 2. Osteopenia and osteoarthritis. 3. Mild dorsal soft tissue swelling. Ordered By: ADELSO ADAMS Interpreted By: Kaleb Fajardo MD, 08/31/2021 9:05 AM Adelso Adams MD GENERAL IMAGING Final Result * XR CHEST PORTABLE (08/31/2021 8:56 AM DUSTER TENDER) Anatomical Region Laterality Modality Chest Radiographic Marion ging 08/31/2021 9:03 AM DUSTER TENDER Impressions 08/31/2021 9:04 AM DUSTER TENDER IMPRESSION: No acute disease. Ordered By: ADELSO ADAMS Interpreted By: Kaleb Fajardo MD, 08/31/2021 9:03 AM Narrative 08/31/2021 9:04 AM DUSTER TENDER Examination: Portable chest. Exam time: 0841 hours. Clinical history: Weakness. Comparison: None Technique: ??AP ??upright view. Findings: The heart is within normal limits for size. Pulmonary vascularity is within normal limits. The lungs and pleural spaces appear free of any active process. The visualized bony thorax is unremarkable for age. Procedure Note Kaleb Fajardo MD - 08/31/2021 Examination: Portable chest. Exam time: 0841 hours. Clinical history: Weakness. Comparison: None Technique: AP upright view. Findings: The heart is within normal limits for size. Pulmonaryvascularity is within normal limits. The lungs and pleural spaces appearfree of any active process. The visualized bony thorax is unremarkable forage. IMPRESSION: No acute disease. Ordered By: ADELSO ADAMS Interpreted By: Kaleb Fajardo MD, 08/31/2021 9:03 AM Adelso Adams MD GENERAL IMAGING Final Result * CULTURE, BACTERIA, BLOOD (08/31/2021 8:55 AM DUSTER TENDER) SPEC DESCRIPTION BLOOD 08/31/2021 8:42 AM DUSTER TENDER [facility] SPECIAL REQUESTS NO SPECIAL REQUEST 08/31/2021 8:42 AM DUSTER TENDER [facility] CULTURE RESULT NO GROWTH 5 DAYS 09/05/2021 12:02 PM CDT [facility] BLOOD SPECIMEN OBTAINED FOR BLOOD CULTURE / Unknown 08/31/2021 8:55 AM DUSTER TENDER 08/31/2021 9:04 AM DUSTER TENDER us Adelso Adams MD MICROBIOLOGY - GENERAL ORDERABLE S Final Result [facility] [address] [place] [address], * (ABNORMAL) LIPASE (08/31/2021 8:50 AM DUSTER TENDER) LIPASE 40(L) 73 - 393 UNITS/L 08/31/2021 9:23 AM DUSTER TENDER [facility] 08/31/2021 8:50 AM DUSTER TENDER us Adelso Adams MD LABORATORY Final Result Performing Organization Address [facility]/ZIP Co de Phone Number [facility] [address] [place] [address], * (ABNORMAL) CULTURE, BACTERIA, BLOOD (08/31/2021 8:50 AM DUSTER TENDER) Pathologist [facility] SPEC DESCRIPTION BLOOD 08/31/2021 8:42 AM DUSTER TENDER [facility] SPECIAL REQUESTS NO SPECIAL REQUEST 08/31/2021 8:42 AM DUSTER TENDER [facility] GRAM STAIN RESULT GRAM POSITIVE COCCI 09/01/2021 2:24 PM DUSTER TENDER [facility] GRAM STAIN RESULT CALLED TO [place] [id number] 09/01/21 AFW R+V 09/01/2021 2:24 PM DUSTER TENDER [facility] CULTURE RESULT IN AEROBIC BLOOD CULTURE STAPHYLOCOCCUS EPIDERMIDIS (AA) 09/06/2021 8:22 AM CDT [facility] CULTURE RESULT IN AEROBIC BLOOD CULTURE STAPHYLOCOCCUS HOMINIS SUBSP. HOMINIS (AA) 09/06/2021 8:22 AM CDT [facility] BLOOD SPECIMEN OBTAINED FOR BLOOD CULTURE / Unknown 08/31/2021 8:50 AM DUSTER TENDER 08/31/2021 9:03 AM DUSTER TENDER Narrative Organism Antibiotic Method Susceptibility Staphylococcus epidermidis CLINDAMYCIN BARBARA (VITEK) Sensitive Staphylococcus epidermidis ERYTHROMYCIN BARBARA (VITEK) Sensitive Staphylococcus epidermidis GENTAMICIN BARBARA (VITEK) Sensitive Staphylococcus epidermidis OXACILLIN BARBARA (VITEK) Resistant Staphylococcus epidermidis PENICILLIN G BARBARA (VITEK) Resistant Staphylococcus epidermidis RIFAMPIN BARBARA (VITEK) Sensitive Staphylococcus epidermidis TRIMETH-SULFAMETH. BARBARA (VIT EK) Resistant Staphylococcus epidermidis TETRACYCLINE BARBARA (VITEK) Sensitive Staphylococcus epidermidis VANCOMYCIN BARBARA (VITEK) Sensitive Staphlococcus hominis subsp.hominis CLINDAMYCIN BARBARA ( VITEK) Resistant Staphlococcus hominis subsp.hominis ERYTHROMYCIN BARBARA ( VITEK) Resistant Staphlococcus hominis subsp.hominis GENTAMICIN BARBARA ( VITEK) Sensitive Staphlococcus hominis subsp.hominis OXACILLIN BARBARA ( VITEK) Resistant Staphlococcus hominis subsp.hominis PENICILLIN G BARBARA ( VITEK) Resistant Staphlococcus hominis subsp.hominis RIFAMPIN BARBARA ( VITEK) Sensitive Staphlococcus hominis subsp.hominis TRIMETH-SULFAMETH. BARBARA (VITEK) Sensitive Staphlococcus hominis subsp.hominis TETRACYCLINE BARBARA ( VITEK) Resistant Staphlococcus hominis subsp.hominis VANCOMYCIN BARBARA ( VITEK) Sensitive us Adelso Adams MD MICROBIOLOGY - GENERAL ORDERABLE S Final Result Performing Organization Address City/[facility] Co de Phone Number [facility] [address] [place] [address], [phone] [facility] [address] [place] [address], * LACTIC ACID (08/31/2021 8:50 AM DUSTER TENDER) Pathologist [facility] LACTIC ACID VENOUS 1.2 0.4 - 2.0 MMOL/L 08/31/2021 9:28 AM DUSTER TENDER [facility] 08/31/2021 8:50 AM DUSTER TENDER us Adelso Adams MD LABORATORY Final Result Performing Organization Address [facility] Co de Phone Number [facility] [address] [place] [address], * (ABNORMAL) COMPREHENSIVE METABOLIC PANEL (08/31/2021 8:50 AM DUSTER TENDER) SODIUM S/P/B 135(L) 136 - 145 MMOL/L 08/31/2021 9:28 AM [facility] POTASSIUM S/P/B 3.8 3.5 - 5.1 MMOL/L 08/31/2021 9:28 AM [facility] CHLORIDE S/P/B 97(L) 98 - 107 MMOL/L 08/31/2021 9:28 AM [facility] CO2 28.0 21.0 - 32.0 MMOL/L 08/31/2021 9:28 AM [facility] GLUCOSE 83 70 - 99 MG/DL 08/31/2021 9:28 AM [facility] Comment: FASTING GLUCOSE 100 TO 125 MG/DL IS CONSISTENT WITH IMPAIRED FASTING GLUCOSE. FASTING GLUCOSE >125 MG/DL IS CONSISTENT WITH DIABETES. RANDOM GLUCOSE >200 MG/DL WITH HYPERGLYCEMIC SYMPTOMS IS CONSISTENT WITH DIABETES. PER ADA GUIDELINES BUN 17 6 - 24 MG/DL 08/31/2021 9:28 AM [facility] CREATININE S/P/B 0.78 0.55 - 1.02 MG/DL 08/31/2021 9:28 AM [facility] CALCIUM S/P/B 8.6 8.4 - 10.5 MG/DL 08/31/2021 9:28 AM [facility] BILIRUBIN TOTAL S/P/B 1.0 0.2 - 1.0 MG/DL 08/31/2021 9:28 AM [facility] Comment: THIS ASSAY IS NOT RECOMMENDED FOR PATIENTS UNDERGOING TREATMENT WITH ELTROMBOPAG DUE TO THE POTENTIAL FOR FALSELY ELEVATED RESULTS. ALKALINE PHOSPHATASE S/P/B 64 55 - 142 U/L 08/31/2021 9:28 AM [facility] AST 39(H) 15 - 37 U/L 08/31/2021 9:28 AM [facility] ALT 23 14 - 59 U/L 08/31/2021 9:28 AM [facility] TOTAL PROTEIN S/P/B 7.0 6.4 - 8.2 G/DL 08/31/2021 9:28 AM [facility] ALBUMIN S/P/B 3.3(L) 3.4 - 5.0 G/DL 08/31/2021 9:28 AM [facility] ANION GAP 10.0 5.0 - 15.0 MMOL/L 08/31/2021 9:28 AM [facility] OSMOLALITY (CALC) 281 MOSM/KG 022 9:28 AM DUSTER TENDER [facility] Comment:REFERENCE RANGE NOT ESTABLISHED EGFR NON-AFR. AMER. 71(L) >89 ML/MIN/1. 73 M2 08/31/2021 9:28 AM DUSTER TENDER [facility] EGFR AFR. AMER. 82(L) >89 ML/MIN/1. 73 M2 08/31/2021 9:28 AM [facility] GFR NOTES GFR REFERENCE S: 08/31/2021 9:28 AM [facility] Comment: THE ESTIMATED GFR IS CALCULATED USING THE 2009 CKD-EPI EQUATION. THE FOLLOWING CATEGORIES FOR GRADING RENAL FUNCTION ARE RECOMMENDED BY THE INTERNATIONAL SOCIETY OF NEPHROLOGY (KDIGO 2012 CLINICAL PRACTICE GUIDELINE). G1,NORMAL OR HIGH: >89 ml/min/1.73 m2 G2,MILDLY DECREASED: 60-89 ml/min/1.73 m2 G3A,MILDLY TO MODERATELY DECREASED: 45-59 ml/min/1.73 m2 G3B,MODERATELY TO SEVERELY DECREASED: 30-44 ml/min/1.73 m2 G4,SEVERELY DECREASED: 15-29 ml/min/1.73 m2 G5,KIDNEY FAILURE: <15 ml/min/1.73 m2 08/31/2021 8:50 AM DUSTER TENDER Adelso Adams MD LABORATORY Final Result [facility] [address] [place] [address], * TROPONIN, QUANT (08/31/2021 8:50 AM DUSTER TENDER) TROPONIN I 19 0 - 51 ng/L 08/31/2021 9:28 AM DUSTER TENDER [facility] 08/31/2021 8:50 AM DUSTER TENDER Adelso Adams MD LABORATORY Final Result [facility] [address] [place] [address], * (ABNORMAL) CBC W/DIFF AUTOMATED (08/31/2021 8:50 AM DUSTER TENDER) WBC 11.0(H) 4.0 - 10.8 x10'3/uL 08/31/2021 9:08 AM [facility] RBC 4.46 4.10 - 5.40 x10'6/uL 08/31/2021 9:08 AM [facility] HGB 13.0 12.0 - 16.0 G/DL 08/31/2021 9:08 AM [facility] HCT 39.9 36.0 - 47.0 % 08/31/2021 9:08 AM [facility] MCV 89.5 78.0 - 100.0 FL 08/31/2021 9:08 AM [facility] MCH 29.1 27.0 - 31.0 PG 08/31/2021 9:08 AM [facility] MCHC 32.6(L) 33.0 - 36.0 G/DL 08/31/2021 9:08 AM [facility] RDW 13.7 11.5 - 14.5 % 08/31/2021 9:08 AM [facility] PLT 185 150 - 350 x10'3/uL 08/31/2021 9:08 AM [facility] MPV 11.4(H) 7.4 - 10.4 FL 08/31/2021 9:08 AM [facility] DIFFERENTIAL COMMENT NORMAL REFERENCE RANGE NOT ESTABLISHED FOR THE PROPORTIONAL LEUKOCYTE DIFFERENTIAL. 08/31/2021 9:08 AM [facility] SEG NEUTROPHILS 66.7 % 9:08 AM [facility] LYMPHOCYTES 17.0 % 08/31/2021 9:08 AM [facility] MONOCYTES 15.2 % 08/31/2021 9:08 AM [facility] EOSINOPHILS 0.3 % 08/31/2021 9:08 AM [facility] BASOPHILS 0.5 % 08/31/2021 9:08 AM [facility] IMMATURE GRANS % 0.3 % 09/01/19 9:08 AM DUSTER TENDER [facility] NRBC 0.0 % 08/31/2021 9:08 AM DUSTER TENDER [facility] ABS. NEUTROPHILS 7.31 1.60 - 8.30 x10'3/uL 08/31/2021 9:08 AM [facility] ABS. LYMPHOCYTES 1.86 0.80 - 4.70 x10'3/uL 08/31/2021 9:08 AM [facility] ABS. MONOCYTES 1.67(H) 0.00 - 1.50 x10'3/uL 08/31/2021 9:08 AM DUSTER TENDER [facility] ABS. EOSINOPHILS 0.03 0.00 - 0.40 x10'3/uL 08/31/2021 9:08 AM [facility] ABS. BASOPHILS 0.06 0.00 - 0.20 x10'3/uL 08/31/2021 9:08 AM [facility] ABS. IMMATURE GRANULOCYTES 0.03 0.00 - 0.03 x10'3/uL 08/31/2021 9:08 AM [facility] ABS. NUCLEATED RBC'S 0.00 0.00 x10'3/uL 08/31/2021 9:08 AM [facility] 08/31/2021 8:50 AM DUSTER TENDER Adelso Adams MD LABORATORY Final Result [facility] [address] [place] [address], * (ABNORMAL) PROTIME/INR, VENOUS (08/31/2021 8:50 AM DUSTER TENDER) PROTIME 30.0(H) 10.2 - 12.9 SEC 08/31/2021 9:14 AM DUSTER TENDER [facility] INR 2.5(H) 0.9 - 1.1 08/31/2021 9:14 AM DUSTER TENDER [facility] 08/31/2021 8:50 AM DUSTER TENDER Adelso Adams MD LABORATORY Final Result [facility] [address] [place] [address], * ECG 12 lead (08/31/2021 8:46 AM DUSTER TENDER) 08/31/2021 8:46 AM DUSTER TENDER Narrative [facility] - 08/31/2021 8:53 PM DUSTER TENDER ? [facility] ?[address] [place], [place] ??[address] ? Test Date: ?2021-08-31 Pat Name: ? ENMA CARLO ?Department: ? Room: ? 316 Gender: ? Female ? 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 : ?1940 ? Requested By: ADELSO ADAMS Order Number: [id number] ? Reading : ?? Viry Luna ? Measurements Intervals ?[place] ? Rate: ? 88 ? P: ?61 CO: ? 182 ?QRS: ?51 QRSD: ? 89 ? T: ?61 QT: ? 363 ? QTc: ?441 ? Interpretive Statements SINUS RHYTHM WITH OCCASIONAL SUPRAVENTRICULAR PREMATURE COMPLEXES ER TENDER Procedure Note Viry Luna MD - 08/31/[address] 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: : 1940 Requested By: ADELSO ADAMS Order Number: [id number] Reading MD: Viry Luna Measurements Intervals [place] Rate: 88 P: 61 CO: 182 QRS: 51 QRSD: 89 T: 61 QT: 363 QTc: 441 Interpretive Statements SINUS RHYTHM WITH OCCASIONAL SUPRAVENTRICULAR PREMATURE COMPLEXES ER TENDER us Adelso Adams MD ECG ORDERABLES Final Result [facility] [place] [facility] documented in this encounter Visit Diagnoses Diagnosis Cellulitis of left leg- Primary Cellulitis and abscess of leg, except foot Weakness Other malaise and fatigue Abscess of left hand Cellulitis and abscess of hand, except fingers and thumb Fall at home, initial encounter Chronic anticoagulation Encounter for long-term (current) use of anticoagulants 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 Given 08/31/2021 9:37 PM DUSTER TENDER 650 mg aspirin EC (ECOTRIN) tablet 81 mg 81 mg, Oral, Daily, First dose on Joana 08/31/21 at 1600, Until Discontinued, Do not break, chew, or crush. Given 09/02/2021 8:46 AM DUSTER TENDER 81 mg Given 09/01/2021 9:19 AM DUSTER TENDER 81 mg atorvastatin (LIPITOR) tablet 20 mg 20 mg, Oral, Nightly at bedtime, First dose on Joana 08/31/21 at 2100, Until Discontinued Given 09/01/2021 8:40 PM DUSTER TENDER 20 m g Given 08/31/2021 8:26 PM DUSTER TENDER 20 mg cefTRIAXone (ROCEPHIN) 2 g in sodium chloride 0.9 % 50 mL IVPB 2 g, Intravenous, at 100 mL/hr, Every 24 hours, First dose on Sat09/01/21 at 0930, Until Discontinued New Bag 09/01/2021 9:18 AM DUSTER TENDER 2 g 100 mL/hr cephALEXin (KEFLEX) capsule 500 mg 500 mg, Oral, Every 6 hours scheduled (4 times per day), First dose (after last modification) on 09/02/21 at 0945, Until Discontinued Given 09/02/2021 10:40 AM DUSTER TENDER 500 mg furosemide (LASIX) tablet 20 mg 20 mg, Oral, Daily, First dose on Joana 08/31/21 at 1530, Until Discontinued Given 09/02/2021 8:46 AM DUSTER TENDER 20 mg HYDROcodone-acetaminophen (NORCO) 5-325 MG tablet 1 tablet 1 tablet, Oral, Every 4 hours PRN, Moderate pain (Scale 4 - 7), Starting on Sat09/01/21 at 1135, Until 09/02/21 at 1352, Maximum dose of acetaminophen is 3000 mg from all sources in 24 hours. lisinopril (PRINIVIL) tablet 10 mg 10 mg, Oral, Daily, First dose on Joana 08/31/21 at 1600, Until Discontinued Given 09/01/2021 9:19 AM DUSTER TENDER 10 mg Given 08/31/2021 5:53 PM DUSTER TENDER 10 mg lisinopril (PRINIVIL) tablet 20 mg 20 mg, Oral, Daily, First dose (after last modification) on 09/02/21 at 0900, Until Discontinued Given 09/02/2021 8:46 AM DUSTER TENDER 20 mg warfarin (COUMADIN) pharmacy to dose placeholder Oral, See admin instructions, Starting on Joana 08/31/21 at 1636, Until 09/02/21 at 1352, Warfarin Placeholder Only: Do NOT document administrations on this placeholder. (Use medication on AUG to document administrations or contact pharmacy if medication order not entered.) warfarin (COUMADIN) tablet 3 mg 3 mg, Oral, Daily (warfarin), First dose on Joana 08/31/21 at 1700, Until Discontinued Given 09/01/2021 5:33 PM DUSTER TENDER 3 mg Given 08/31/2021 5:53 PM DUSTER TENDER 3 mg documented in this encounter Active and Recently Administered Medications Times are shown in DUSTER TENDER. Scheduled Medication Order 08/31/2021 09/01/2021 09/02/2021 aspirin EC (ECOTRIN) tablet 81 mg 81 mg, Oral, Daily, First dose on Joana 08/31/21 at 1600, Until Discontinued, Do not break, chew, or crush. 1640 (Not Given - Provider: An López RN - Reason: Patient already took) 09 (Given - Provider: Sherlyn Cantu RN) 0846 (Given - Provider: Annabella Lopez RN) atorvastatin (LIPITOR) tablet 20 mg 20 mg, Oral, Nightly at bedtime, First dose on Joana 08/31/21 at 2100, Until Discontinued 2025 (Given - Provider: Bertha Paige RN) 2039 (Given - Provider: Karmen Henriquez RN) cefTRIAXone (ROCEPHIN) 2 g in sodium chloride 0.9 % 50 mL IVPB (CANCELED) 2 g, Intravenous, at 100 mL/hr, Every 24 hours, First dose on Sat09/01/21 at 0930, Until Discontinued 917 (New Bag - Provider: Sherlyn Cantu RN)0948 (Infusion Stop Time - Provider: Sherlyn Cantu RN) 0846 (Not Given - Provider: Annabella Lopez RN - Reason: Loss of IV access - Comment: infiltrated; dc today; changed to PO antibiotic) cephALEXin (KEFLEX) capsule 500 mg 500 mg, Oral, Every 6 hours scheduled (4 times per day), First dose (after last modification) on 09/02/21 at 0945, Until Discontinued 1040 (Given - Provider: Annabella Lopez RN) furosemide (LASIX) tablet 20 mg 20 mg, Oral, Daily, First dose on Joana 08/31/21 at 1530, Until Discontinued 1640 (Not Given - Provider: An López RN - Reason: Patient/family declined) 09 (Not Given - Provider: Sherlyn Cantu RN - Reason: Patient/family declined) 0846 (Given - Provider: Annabella Lopez RN) lisinopril (PRINIVIL) tablet 10 mg (CANCELED) 10 mg, Oral, Daily, First dose on Joana 08/31/21 at 1600, Until Discontinued 1753 (Given - Provider: An López RN) 0919 (Given - Provider: Sherlyn Cantu RN) lisinopril (PRINIVIL) tablet 20 mg 20 mg, Oral, Daily, First dose (after last modification) on 09/02/21 at 0900, Until Discontinued 0846 (Given - Provider: Annabella Lopez, ZORAN) warfarin (COUMADIN) pharmacy to dose placeholder(Linked Group 1) Oral, See admin instructions, Starting on Joana 08/31/21 at 1636, Until 09/02/21 at 1352, Warfarin Placeholder Only: Do NOT document administrations on this placeholder. (Use medication on MAR to document administrations or contact pharmacy if medication order not entered.) warfarin (COUMADIN) tablet 3 mg (CANCELED) 3 mg, Oral, Daily (warfarin), First dose on Joana 08/31/21 at 1700, Until Discontinued 1753 (Given - Provider: An López, RN) 173 (Given - Provider: Sherlyn Cantu RN) PRN Medication Order 08/31/2021 09/01/2021 09/02/2021 acetaminophen (TYLENOL) tablet 650 mg 650 mg, Oral, Every 4 hours PRN, Mild pain (Scale 1 - 3), Starting on Joana 08/31/21 at 1451, Until 09/02/21 at 1352, Maximum dose of acetaminophen is 4000 mg from all sources in 24 hours. 2136 (Given - Provider: Bertha Paige, ZORAN) HYDROcodone-acetaminophen (NORCO) 5-325 MG tablet 1 tablet 1 tablet, Oral, Every 4 hours PRN, Moderate pain (Scale 4 - 7), Starting on 09/01/21 at 1135, Until 09/02/21 at 1352, Maximum dose of acetaminophen is 3000 mg from all sources in 24 hours. ondansetron (ZOFRAN) injection 4 mg 4 mg, Intravenous, Every 8 hours PRN, Nausea, Vomiting, Starting on Joana 08/31/21 at 1451, Until 09/02/21 at 1352, IV push over 2-5 minutes. polyethylene glycol (GLYCOLAX) packet 17 g 17 g, Oral, Daily as needed, Constipation, Starting on Joana 08/31/21 at 1452, Until 09/02/21 at 1352, If both senna and polyethylene glycol are ordered, use 1st; if no response by next dosing interval, go to next option. Linked Groups Order Group 1: Pharmacy to dose warfarin (COUMADIN) (CANCELED) Routine, Once, On Joana 08/31/21 at 1637, For 1 occurrence, Target INR? 2-3, Indication for therapy (eg. afib)? Hx DVT And warfarin (COUMADIN) pharmacy to dose placeholderJump to med Oral, See admin instructions, Starting on Joana 08/31/21 at 1636, Until 09/02/21 at 1352, Warfarin Placeholder Only: Do NOT document administrations on this placeholder. (Use medication on AUG to document administrations or contact pharmacy if medication order not entered.) documented in this encounter Additional Health Concerns Infection Onset Date Last Indicated Resolved Time COVID-19 Rule Out 08/31/2021 08/31/2021 09/01/2021 7:49 PM DUSTER TENDER documented as of this encounter Care Teams Bilingual Spanish Inbound Sales Relationship Specialty Start Date End Date None, Provider, PCP - General 08/31/21 08/31/21 Sukhi Frankel MD [address] [place] [address] PCP - General INTERNAL MEDICINE 09/01/21 05/23/23 documented as of this encounter
--- OUTSIDE RECORDS SUMMARY | 2024-06-08 20:47 | XMS_ITS | Data Portability ---
Author Organization [facility], [address] [place] [address] Neurology ([place]) Address [address] [address] Care Team Providers Care Electronic Heat Seal Operator Name Role Phone SUKHI SAUNDERS Primary Care Provider [phone] Assessment Encounter Date Assessment Date Assessment LastModified by Organization Details LastModified Time 12/24/2023 12/24/2023 patient passed out in waiting room and was unable to be seen. [email or web address] Not available 12/24/2023 14:56:20 Plan of Treatment Reminders Order Date Submit Date Provider Last Modified By Organization Details Last Modified Time Details Appointments None record ed. Lab None record ed. Referral None record ed. Procedures None record ed. Surgeries None record ed. Imaging None record ed. Medication Orders None record ed. Patient TargetsNo targets recorded. Patient InstructionsNo instructions recorded. Reason for Referral None Reported. Results Created Date Observation Date Name Description Value Unit Range Abnormal Flag Note LastModifiedBy Organization Detail LastModifiedTime 01/09/20 24 12/25/2023 XR, knee, 4 or more view No observ ation record ed. [email or web address] [facility] Only - [facility] [address] [place] [address], [id number], 01/09/2024 11:26:55 01/09/20 24 12/25/2023 CT, brain , w/o contr ast No observ ation record ed. nadya Not Available 2023 11:27:50 Result Notes None recorded. Problems Name Problem SNOMED Code Status Onset Date Resolution Date Notes Provider Name and Address Organization Details Recorded Time Pain of left knee joint [id number] Active 2023 Jake Vickers MD [address] [place] [address], [phone], [facility] 4 10:41:10 Pain of right knee joint 501225449230894 Active 2023 Jake Vickers MD [address] [place] [address], [phone], [facility] 4 10:41:22 Problem Notes None recorded. Procedures Surgical History None recorded. Imaging Results Imaging Date Name Status LastModified by Organiz ation Details LastModified Time 12/25/2023 XR, knee, 4 or more view completed [email or web address] Sc Only - [facility] [address] [place] [address], [id number], 01/09/2024 11:26:55 12/25/2023 CT, brain, w/o contrast completed [email or web address] Information not available 01/09/2024 11:27:50 Procedure Notes None recorded. Medical Equipment None Reported. Allergies Allergen ID Allergen Name Allergen Category Reaction Reaction Severity Criticality Documentation Date Start Date Code Code System Note Provider Name and Address Organization Details Recorded Time [id number] 2824e prednison e medicatio n Not available Not available Not available 07/22/20232016 8640 RxNorm Not Available Not Available Not Available [id number] [id number] 2824e Acetamino phen / Propoxyph mary medicatio n Not available Not available Not available 07/22/20232016 40645 RxNorm Not Available Not Available Not Available Medications Name Sig Start Date Stop Date Status Note LastModified by Organization Details LastModified Time fluconazole 100 mg tablet TAKE 1 TABLET ONCE IN 1 WEEK IF YOU STILL HAVE BURNING WITH URINATION active Not Available Not Available No t Available venlafaxine ER 37.5 mg capsule,exte nded release 24 hr TAKE 1 CAPSULE BY MOUTH AT BEDTIME WITH FOOD active Not Available Not Available No t Available clindamycin HCl 300 mg capsule 300 MG ORALLY EVERY 6 HOURS FOR 5 DAYS active Not Available Not Available No t Available trazodone 50 mg tablet TAKE 1 AND HALF TABLETS BY MOUTH (75MG) EVERY EVENING active Not Available Not Available No t Available azithromycin 250 mg tablet TAKE 2 TABLETS BY MOUTH TODAY, THEN TAKE 1 TABLET DAILY FOR 4 DAYS DIRECTED active Not Available Not Available No t Available alprazolam 1 mg tablet TAKE 1 TABLET BY MOUTH DAILY NEEDED FOR ANXIETY active Not Available Not Available Not Available cephalexin 250 mg capsule TAKE 1 CAPSULE EVERY 8 HOURS FOR 7 DAYS active Not Available Not Available No t Available hydrocodone 5 mg-acetamino phen 325 mg tablet TAKE 1 TABLET BY MOUTH EVERY 8 HOURS NEEDED FOR PAIN active Not Available Not Available No t Available levofloxacin 250 mg tablet TAKE 1 TABLET (250 MG) BY MOUTH ONCE DAILY active Not Available Not Available No t Available amlodipine 5 mg tablet 5 MG ORALLY DAILY active Not Available Not Available No t Available warfarin 3 mg tablet TAKE 1 TABLET BY MOUTH EVERY DAY active Not Available Not Available No t Available alprazolam 0.5 mg tablet TAKE 1 TABLET BY MOUTH AT BEDTIME NEEDED FOR INSOMNIA active Not Available Not Available No t Available alprazolam 0.25 mg tablet TAKE 1/2 TABLET BY MOUTH AT BEDTIME NEEDED FOR SLEEP active Not Available Not Available No t Available amitriptylin e 25 mg tablet TAKE 1 TABLET BY MOUTH AT BEDTIME active Not Available Not Available No t Available magnesium oxide 400 mg (241.3 mg magnesium) tablet TAKE 1 TABLET BY MOUTH TWICE A DAY active Not Available Not Available No t Available trazodone 100 mg tablet TAKE 1 TABLET BY MOUTH EVERY EVENING active Not Available Not Available No t Available doxycycline monohydrate 100 mg capsule 100 MG ORALLY TWICE A DAY FOR 7 DAYS active Not Available Not Available N ot Available nitrofuranto in macrocrystal 100 mg capsule TAKE 1 CAPSULE BY MOUTH EVERY 12 HOURS MUST ADMINISTER WITH A MEAL/FOOD active Not Available Not Available No t Available nitroglyceri n 0.[address] 1 TABLET UNDER TONGUE EVERY 5 MINS, UP TO 3 DOSES NEEDED FOR CHEST PAIN active Not Available Not Available N ot Available furosemide 20 mg tablet TAKE ONE TABLET BY MOUTH DAILY active Not Available Not Available Not Available albuterol sulfate HFA 90 mcg/actuatio n aerosol inhaler INHALE 2 PUFFS BY MOUTH 4 TIMES DAILY NEEDED FOR SHORTNESS OF BREATH active Not Available Not Available No t Available benazepril 10 mg tablet TAKE 1 TABLET BY MOUTH EVERY DAY active Not Available Not Available No t Available sertraline 50 mg tablet TAKE 1 TABLET BY MOUTH EVERY DAY active Not Available Not Available No t Available rosuvastatin 10 mg tablet TAKE 1 TABLET BY MOUTH EVERY DAY active Not Available Not Available No t Available mirtazapine 7.5 mg tablet TAKE 1 TABLET BY MOUTH IN THE EVENING active Not Available Not Available Not Available nitrofuranto in monohydrate/ macrocrystal s 100 mg capsule 100 MG ORALLY EVERY 12 HOURS FOR 7 DAYS MUST ADMINISTER WITH A MEAL/FOOD active Not Available Not Available No t Available duloxetine 20 mg capsule,morgan yed release TAKE 1 CAPSULE BY MOUTH DAILY active Not Available Not Available Not Available sodium chloride 1,000 mg soluble tablet 1000 MG ORALLY EVERY 8 HOURS active Not Available Not Available No t Available Calcium 600 with Vitamin D3 600 mg-10 mcg (400 unit) chewable tablet CHEW 2 TABLETS BY MOUTH DAILY FOR 3 MONTHS active Not Available Not Available No t Available Eliquis 5 mg tablet TAKE 1 TABLET BY MOUTH TWICE A DAY active Not Available Not Available No t Available potassium chloride ER 20 mEq tablet,exten ded release TAKE 1 TABLET BY MOUTH EVERY DAY active Not Available Not Available No t Available Paxlovid 300 mg (150 mg x 2)-100 mg tablets in a dose pack TAKE 2 TABLETS (NIRMATRELV IR) AND TAKE 1 TABLET (RITONAVIR) BY MOUTH TWICE A DAY FOR 5 DAYS active Not Available Not Available N ot Available Vitals None Recorded Social History None recorded. Functional Status None recorded. Mental Status None recorded. Family History Nothing Reported. Medical History No medical history recorded. Gynecological HistoryNo gynecological history recorded. Obstetrics History GPAL:G 0 P 0 0 0 0 Past Encounters Encounter ID Performer Location Encounter Start Date Encounter Closed Date Diagnosis/Indication Diagnosis SNOMED-CT Code Diagnosis ICD10 Code [id number] Jake Vickers MD [facility] ([place]) [address] [facility] [place] [address] 12/24/2023 09:23:19 12/24/2023 14:59:46 Pain of left knee joint [id number] 68922 M25.562 Pain of ri ght knee joint 2281625668 68671 M25.561 Health Concerns Section Related Observation LastModified by Organization Detai ls LastModified Time None Recorded Concern Status LastModified by Organization Details LastModified Time None Recorded Advance Directives Directive None Recorded Payers Encounter Date Sequence Insurance Name Policy Number Policy Eduardo Covered Member ID Eduardo Member ID Guarantor Name 12/24/2023 1 [place] Linda Garza [id number] Linda Garza 12/24/2023 2 [place] [id number] Ricky Garza [id number] Linda Garza OBGyn Episode No OBEpisode recorded.
--- OUTSIDE RECORDS SUMMARY | 2024-06-08 20:47 | XMS_ITS | Encounter Summary ---
Author Organization [facility] Address [address] [place] [address]. [place] [address] [place] [address] Care Team Providers Care Real Estate Acquisition Analyst Name Role Phone Jose A Lakhani DO Primary Care Provider [phone] Encounter Details Date Type Department Care Team (Late st Contact Info) Description 03/04/2024 11:18 AM CDT - 03/04/2024 11:59 PM [facility] Hospital Encounter [facility] [address] [place] [address] Karmen Ramirez, [facility] [address] [place] [address] Discharge Disposition: Home or Self Care (Routine Discharge) Social History Tobacco Use Types Packs/Day Years Used Date Smoking Tobacco: Never Smokeless Tobacco: Never [facility] Utilities Answer Date Recorded In the past 12 months has [facility] [employer], gas, oil, or water [employer] threatened to shut off services in your [...] on filedocumented in this encounter Care Teams Real Estate Acquisition Analyst Relationship Specialty Start Date End Date Jose A Lakhani DO [address] [place] [address] PCP - General FAMILY PRACTICE 05/24/23 documented as of this encounter
--- OUTSIDE RECORDS SUMMARY | 2024-06-08 20:47 | XMS_ITS | Encounter Summary ---
Author Organization [facility] Address [address] [place] [address]. [place], [place] [address] [place] [address] Care Team Providers Care Piping Supervisor Name Role Phone Unavailable Primary Care Provider Unavailabl e Encounter Details Date Type Department Care Team (Late st Contact Info) Description 08/06/1994 Abstract [facility] [address] [place] [address] , Generic Conversion, Social History Tobacco Use [...]
--- OUTSIDE RECORDS SUMMARY | 2024-06-08 20:47 | XMS_ITS | Encounter Summary ---
Author Organization [facility] Address Critical access hospital[facility] [place] [address] [place] [address] Care Team Providers Care Tree Topper Name Role Phone Unavailable Primary Care Provider Unavailabl e Encounter Details Date Type Department Care Team (Late st Contact Info) Description 03/17/2015 Abstract [facility] [place] [address] [place] [id number] Luis Diaz MD [address] [place], [place] [id number] Social History Tobacco Use Types Packs/Day Years Used Date Smoking Tobacco: Never Assessed Comments Unknown Sex and Gender Information Value Date Recorded Sex Assigned at Not on file Legal Sex Female 8:54 PM CDT Gender Identity Not on file Sexual Orientation Not on file documented as of this encounter Progress Notes * Luis Diaz MD - 03/17/2015 2:15 PM CDT Chief Complaint Chief Complaint: The patient presents to the office today with LEFT lower leg pain. History of Present Illness HPI: PAtient returns to clinic today with complaints of LEFT lower leg weakness and pain. She was fitted for an orthosis last Jan. She states she has not seen any relief in her pain or weakness sincegetting fitted for the AFO. She is certain the brace is causing her the pain. She has a history of polio and has chronic weakness and pain the left lower extremity. Review of Systems See HPI for pertinent positives. Physical Exam Constitutional: alert and in no acute distress. Neurological:. The patient was oriented to person, place, and time. Mood and affect were appropriate. Eyes: pupils were equal in size, round, reactive to light, with normal accommodation. ENT: hearing was normal. Pulmonary: no respiratory distress. Skin: no injuries or skin lesions on the left lower extremity. Assessment 1. 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 She can DC the brace and return on a PRN Basis. Signatures Electronically signed by : Luis Diaz M.D.; Mar 21 2015 9:17AM PLASTICATOR (Author) Electronically signed by : Luis Diaz M.D.; Mar 21 2015 9:18AM PLASTICATOR (Author) documented in this encounter Plan of Treatment Not on file documented as of this encounter Visit Diagnoses Not on filedocumented in this encounter
--- OUTSIDE RECORDS SUMMARY | 2024-06-08 20:47 | XMS_ITS | Encounter Summary ---
Author Organization [facility] Address [address] [place] [address]. [place], [place] [address] [place] [address] Care Team Providers Care Loss Prevention Specialist Name Role Phone Sixto Lund MD Primary Care Provider [phone] Encounter Details Date Type Department Care Team (Latest Contact Info) Description 04/23/2023 Travel Social History Tobacco Use Types Packs/Day [...] Assessment Author Status No 08/31/2021 2:55 PM COUNTY RECORDS MANAGEMENT OFFICER Activ e * RETIRED Are you blind or do you have serious difficulty seeing, even when wearing glasses? Answer Date of Assessment Author Status No 08/31/2021 2:55 PM COUNTY RECORDS MANAGEMENT OFFICER Activ e * Do you have serious [...] Date Author Status No 08/31/2021 2:55 PM COUNTY RECORDS MANAGEMENT OFFICER An López RN Active documented in this encounter Plan of Treatment Not on file documented as of this encounter Visit Diagnoses Not on filedocumented in this encounter Care Teams Loss Prevention Specialist Relationship Specialty Start Date End Date Sixto Lund MD [address] [place] [address] PCP - General INTERNAL MEDICINE 09/01/21 05/23/23 documented as of this encounter
--- OUTSIDE RECORDS SUMMARY | 2024-06-08 20:47 | XMS_ITS | Encounter Summary ---
Author Organization [facility] Address Critical access hospital6 [facility]. [place], [place] [address] [place] [address] Care Team Providers Care Customer Account Technician Name Role Phone Jose A Lakhani DO Primary Care Provider [phone] Encounter Details Date Type Department Care Team (Latest Contact Info) Description 03/04/2024 Travel Social History Tobacco Use Types Packs/Day Years Used Date Smoking Tobacco: Never Smokeless Tobacco: Never [facility] Utilities Answer Date Recorded In the past 12 months has [employer], gas, oil, or water [employer] threatened to shut off services in your [...] place to sleep or slept in a intermediate (including now)? No 05/27/2023 Comments No Sex [...] Date Author Status No 05/27/2023 1:00 PM CEREAL SUPERVISOR Erendira Pagan, RN Active documented in this encounter Plan of Treatment Not on file documented as of this encounter Visit Diagnoses Not on filedocumented in this encounter Care Teams Customer Account Technician Relationship Specialty Start Date End Date Jose A Lakhani DO [address] [place] [address] PCP - General FAMILY PRACTICE 05/24/23 documented as of this encounter
--- OUTSIDE RECORDS SUMMARY | 2024-06-08 20:47 | XMS_ITS | Clinical Summary ---
Author Organization [facility] Address formerly [facility] [place] [address] [place] [address] Care Team Providers Care Special Events Planner Name Role Phone Jose A Lakhani DO Primary Care Provider [phone] Allergies Active Allergy Reactions Criticality Noted Date Comments Prednisone Blurred vision 05/27/2023 Medications aspirin EC (ASPIRIN EC) 81 MG tablet Take 1 tablet (81 mg total) by mouth daily. Active furosemide 20 MG tablet Take by mouth daily. 05/01/2021 Active rosuvastatin 10 MG tablet Take 1 tablet (10 mg total) by mouth nightly at bedtime. 08/18/2021 Active apixaban (ELIQUIS) 5 MG tablet Take 1 tablet (5 mg total) by mouth 2 (two) times daily. 60 tablet 1 05/28/2023 Active benazepril (LOTENSIN) 10 MG tablet Take 1 tablet (10 mg total) by mouth daily. 04/25/2023 Active potassium chloride CR (K-TAB) 20 MEQ tablet Take 1 tablet (20 mEq total) by mouth daily. 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 05/17/2015 Overview (08/31/2021): Coronary artery disease involving moapa coronary artery of moapa heart with other form of angina pectoris Post-polio syndrome 03/21/2015 Encounters Date Type Department Care Team Description 03/18/2024 10:00 AM CDT - 03/18/2024 11:59 PM CDT Hospital Encounter [facility] [address] [facility] [place] [address] Karmen Ramirez, [employer] Discharge Disposition: Home or Self Care (Routine Discharge) 03/18/2024 Travel from Last 3 Months Social History Tobacco Use Types Packs/Day Years Used Date Smoking Tobacco: Never Smokeless Tobacco: Never [facility] Utilities Answer Date Recorded In the past 12 months has [employer], gas, oil, or water [employer] threatened to shut off services in your [...] place to sleep or slept in a correction (including now)? No 05/27/2023 Comments No Sex and Gender Information Value Date Recorded Sex Assigned at Not on file Legal Sex Female 8:54 PM CDT Gender Identity Not on file Sexual Orientation Not on file Last Filed Vital Signs Vital Sign Reading Time Taken Comments Blood Pressure 132/70 07/26/2023 12:50 PM CONTINUUM OF CARE MANAGER Pulse 73 07/26/2023 12:50 PM CONTINUUM OF CARE MANAGER Temperature 36.7 ??C (98 ??F) 05/30/2023 9:00 AM CONTINUUM OF CARE MANAGER Respiratory Rate 16 07/26/2023 12:5 0 PM CONTINUUM OF CARE MANAGER Oxygen Saturation 97% 07/26/2023 12: 50 PM CONTINUUM OF CARE MANAGER Inhaled Oxygen Concentration - - Weight 64.3 kg (141 lb 12.8 oz) 024 12:50 PM CONTINUUM OF CARE MANAGER Height 165.1 cm (5' 5 ) 07/26/2023 12:5 0 PM CONTINUUM OF CARE MANAGER Body Mass Index 23.6 07/26/2023 12:50 PM CONTINUUM OF CARE MANAGER Plan of Treatment Health Maintenance Due Date Last Done Comments ASCVD LDL 1938 ASCVD Statin 1938 Zoster Vaccines (1 of 2) 1988 RSV Immunization or 60+ Years (1 - 1-dose 60+ series) 1998 Annual Medicare Wellness Visit 11/17/2003 COVID-19 Vaccine ( season) 2024 12/01/2021, 06/16/2021, 09/25/2020, Additional history exists Influenza Adult (#1) 2024 03/01/2022, 04/29/2020, 04/21/2019, Additional history exists DTaP, Tdap and Td Vaccines (2 - Td or Tdap) 11/30/2033 12/01/2023 Pneumococcal Vaccine: 65+ Years Completed 01/19/2022, 03/24/2015 Meningococcal Vaccine Aged Out No everett areli eligible based on patient's age to complete this topic RSV Immunizations Under 20 Months Aged Out No longer eligible based on patient's age to complete this topic Insurance MEDICARE [id number] Advance Directives * Full Code (Latest Code Status on File) Date Activated Date Inactivated Comments 05/27/2023 2:16 PM 05/30/2023 1:22 PM * Full Code Date Activated Date Inactivated Comments 08/31/2021 2:52 PM 09/02/2021 1:52 PM Care Teams Special Events Planner Relationship Specialty Start Date End Date Jose A Lakhani DO [address] [place] [address] PCP - General FAMILY PRACTICE 05/24/23
--- OUTSIDE RECORDS SUMMARY | 2024-06-08 20:47 | XMS_ITS | Encounter Summary ---
Author Organization [facility] Address [facility] [place] [address] [place] [address] Care Team Providers Care Glass Maker Name Role Phone Jose A Lakhani DO Primary Care Provider [phone] Encounter Details Date Type Department Care Team (Late st Contact Info) Description 07/25/2023 Orders Only [facility] [address] [place] [address] Everardo Smith MD [address] [facility] [address] [id number] Social History Tobacco Use Types Packs/Day Years Used Date Smoking Tobacco: Never Smokeless Tobacco: Never [facility] Utilities Answer Date Recorded In the past 12 months has [facility] electric, gas, oil, or water company threatened [...] place to sleep or slept in a fdc (including now)? No 05/27/2023 Comments No Sex [...] on file documented as of this encounter Results * ELECTROCARDIOGRAM (07/26/2023 12:48 PM SCRUM COACH) 07/26/2023 12:4 8 PM SCRUM COACH Narrative [facility] - 07/29/2023 12:08 AM SCRUM COACH ? [facility] ?[address], [place] ??[address] ? Test Date: ?2023-07-26 Pat Name: ? ENMA GARZA ?Department: ?? 105 ? Room: ? Gender: ? Female ? Meat Supervisor: ?? cmw : ?1940 ? Requested By: EVERARDO SMITH Order Number: [id number] ?Reading MD: ?? Everardo Smith ? Measurements Intervals ?[place] ? Rate: ? 73 ? P: ?61 MT: ? 161 ?QRS: ?64 QRSD: ? 88 ? T: ?63 QT: ? 377 ? QTc: ?416 ? Interpretive Statements SINUS RHYTHM WITH FREQUENT PAC'S OTHERWISE NORMAL ECG M COACH Procedure Note Everardo Smith MD - 07/29/2023 [facility] [place] [address] Test Date: 2023-07-26 Pat Name: ENMA GARZA Department: 105 Room: Gender: Female Meat Supervisor: asad : 1940 Requested By: EVERARDO SMITH Order Number: [id number] MD: Everardo Smith Measurements Intervals [place] Rate: 73 P: 61 MT: 161 QRS: 64 QRSD: 88 T: 63 QT: 377 QTc: 416 Interpretive Statements SINUS RHYTHM WITH FREQUENT PAC'S OTHERWISE NORMAL ECG M COACH Everardo Smith MD PROCEDURES-ORDERABLE NO CHARGE Final Result Performing Organization Address City/State/[facility] Co de Phone Number [facility] documented in this encounter Visit Diagnoses Diagnosis Syncope, unspecified syncope type- Primary Neurocardiogenic syncope- Primary documented in this encounter Care Teams Glass Maker Relationship Specialty Start Date End Date Jose A Lakhani DO [address] [place] [address] PCP - General FAMILY PRACTICE 05/24/23 documented as of this encounter
--- OUTSIDE RECORDS SUMMARY | 2024-06-08 20:47 | XMS_ITS | Encounter Summary ---
Author Organization [facility] Address [address] [place] [address]. [place], [place] [address] [place] [address] Care Team Providers Care Front Office Associate Name Role Phone None, Provider Primary Care Provider Gomez perez Encounter Details Date Type Department Care Team (Latest Contact Info) Description 08/31/2021 Travel Social History Tobacco Use Types Packs/Day Years Used Date Smoking Tobacco: Never Assessed Comments No Sex and Gender Information Value Date Recorded Sex Assigned at Not on file Legal Sex Female 8:54 PM CDT Gender Identity Not on file Sexual Orientation Not on file COVID-19 Exposure Response Date Recorded In the last 10 days, have yo u been in contact with someone who was confirmed or suspected to have Coronavirus/COVID-19? No / Unsure 08/31/2021 9:13 AM PROFESSIONAL HEALTHCARE REPRESENTATIVE documented as of this encounter Functional Status * Question Answer Date of Assessment Author Status Do you have serious difficulty walking or climbing stairs? Yes 08/31/2021 2:55 PM PROFESSIONAL HEALTHCARE REPRESENTATIVE An López RN Active * Question Answer Date of Assessment Author Status Do you have difficulty dressing or bathing? Yes 08/31/2021 2:55 PM PROFESSIONAL HEALTHCARE REPRESENTATIVE An López RN Active Because of a physical, mental, or emotional condition, do you have difficulty doing errands alone such as visiting a doctor's office or shopping? No 08/31/2021 2:55 PM An Bhatti RN A ctive * RETIRED Are you deaf or do you have serious difficulty hearing Answer Date of Assessment Author Status No 08/31/2021 2:55 PM PROFESSIONAL HEALTHCARE REPRESENTATIVE Activ e * RETIRED Are you blind or do you have serious difficulty seeing, even when wearing glasses? Answer Date of Assessment Author Status No 08/31/2021 2:55 PM PROFESSIONAL HEALTHCARE REPRESENTATIVE Activ e * Do you have serious difficulty walking or climbing stairs? Answer Date of Assessment Author Status Yes 08/31/2021 2:55 PM PROFESSIONAL HEALTHCARE REPRESENTATIVE An López RN Active * Do you have difficulty dressing or bathing? Answer Date of Assessment Author Status Yes 08/31/2021 2:55 PM An Bhatti RN Active * Because of a physical, mental, or emotional condition, do you have difficulty doing errands alone such as visiting a doctor's office or shopping? Answer Date of Assessment Author Status No 08/31/2021 2:55 PM PROFESSIONAL HEALTHCARE REPRESENTATIVE An López RN Active documented as of this encounter Mental Status * Question Answer Entry Date Author Status Because of a physical, mental, or emotional condition, do you have serious difficulty concentrating, remembering, or making decisions? No 08/31/2021 2:55 PM PROFESSIONAL HEALTHCARE REPRESENTATIVE An López RN Active * Because of a physical, mental, or emotional condition, do you have serious difficulty concentrating, remembering, or making decisions? Answer Entry Date Author Status No 08/31/2021 2:55 PM An Bhatti RN Active documented in this encounter Plan of Treatment Not on file documented as of this encounter Visit Diagnoses Not on filedocumented in this encounter Additional Health Concerns Infection Onset Date Last Indicated Resolved Time COVID-19 Rule Out 08/31/2021 08/31/2021 09/01/2021 7:49 PM PROFESSIONAL HEALTHCARE REPRESENTATIVE documented as of this encounter Care Teams Front Office Associate Relationship Specialty Start Date End Date None, Provider, PCP - General 08/31/21 08/31/21 documented as of this encounter
--- OUTSIDE RECORDS SUMMARY | 2024-06-08 20:47 | XMS_ITS | Encounter Summary ---
Author Organization [facility] Address [address] [place] [address]. [place] [address] [place] [address] Care Team Providers Care Custom Stock Maker Name Role Phone Sixto Lund MD Primary Care Provider [phone] Reason for Visit * Reason Onset Date Comments Appointment Request 04/12/2023 Encounter Details Date Type Department Care Team (Late st Contact Info) Description 04/12/2023 Telephone [facility] [address] [place] [address] Jose A Lakhani, DO [address] [place] [address] Appointment Request Social History Tobacco Use Types Packs/Day Years [...] Assessment Author Status No 08/31/2021 2:55 PM EFFICIENCY MINER BLASTING Activ e * RETIRED Are you blind or do you have serious difficulty seeing, even when wearing glasses? Answer Date of Assessment Author Status No 08/31/2021 2:55 PM EFFICIENCY MINER BLASTING Activ e * Do you have serious difficulty walking or climbing stairs? Answer Date of Assessment Author Status Yes 08/31/2021 2:55 PM EFFICIENCY MINER BLASTING An López RN Active * Do you [...] Bhatti RN Active documented in this encounter Progress Notes * Anjelica Richards - 04/12/2023 10:51 AM CDT I called patient to schedule Physical Therapy Evaluation for lymphedema, there was no answer. I left a message to call back. documented in this encounter Plan of Treatment Not on file documented as of this encounter Visit Diagnoses Not on filedocumented in this encounter Care Teams Custom Stock Maker Relationship Specialty Start Date End Date Sixto Lund MD [address] [place] [id number] PCP - General INTERNAL MEDICINE 09/01/21 05/23/23 documented as of this encounter
--- OUTSIDE RECORDS SUMMARY | 2024-06-08 20:47 | XMS_ITS | Encounter Summary ---
Author Organization [facility] Address [address] [place] [address]. [place], [place] [id number] [place] [address] Care Team Providers Care Production Inspector Name Role Phone Unavailable Primary Care Provider Unavailabl e Encounter Details Date Type Department Care Team (Latest Contact Info) Description 01/28/2014 Abstract [facility] , Generic Conversion, Social History Tobacco Use [...]
--- OUTSIDE RECORDS SUMMARY | 2024-06-08 20:47 | XMS_ITS | Clinical Summary ---
Author Organization Unknown Care Team Providers Care Drink Waiter Name Role Phone SUKHI FRANKEL Unavailable Unavailable SAMIR PHYSICAL THERAPIST, FRANK Unavailabl e Unavailable MICHAEL GRINDER TENDER, MATHEUS Unavail able Unavailable COURTNEY MEEHANESCALATION ENGINEER, JUHI Unavailable Unavailable Payers Payer Name Policy Type Policy Number Effective Date Expira tion Date MEDICARE [place] - EPISODIC [id number] Problems Condition Name Condition Details Condition Category Status Onset Date Resolution Date Last Treatment Date Treating Clinician Comments POSTPOLIO SYNDROME Active 09-07 00:00: 00 ESSENTIAL (PRIMARY) HYPERTENSION Active 09-07 00:00: 00 ATHSCL HEART DISEASE OF [place] CORONARY ARTERY W/O ANG PCTRS Active 09-07 00:00: 00 NONRHEUMATIC AORTIC (VALVE) STENOSIS Active 09-07 00:00: 00 ORTHOSTATIC HYPOTENSION Active 09-07 00:00: 00 RHEUMATIC MITRAL INSUFFICIENC Y Active 09-07 00:00: 00 PERIPHERAL VASCULAR DISEASE, UNSPECIFIED Active 09-07 00:00: 00 CELLULITIS OF LEFT LOWER LIMB Active 09-07 00:00: 00 OTHER CHRONIC PAIN Active 09-07 00:00: 00 CARPAL TUNNEL SYNDROME, LEFT UPPER LIMB Active 09-07 00:00: 00 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, INTRACTABLE, WITHOUT STATUS MIGRAINOSUS Active 09-07 00:00: 00 OTH DISRD OF BONE DENSITY AND STRUCTURE, UNSPECIFIED SITE Active 09-07 00:00: 00 MYALGIA, UNSPECIFIED SITE Active 09-07 00:00: 00 GASTRO-ESOPH AGEAL REFLUX DISEASE WITHOUT ESOPHAGITIS Active 09-07 00:00: 00 Irritable bowel syndrome, unspecified Active 09-07 00:00: 00 HYPERLIPIDEM IA, UNSPECIFIED Active 09-07 00:00: 00 OTHER DISORDERS OF [place] Active 09-07 00:00: 00 ANXIETY DISORDER, UNSPECIFIED Active 09-07 00:00: 00 DYSTHYMIC DISORDER Active 09-07 00:00: 00 UNSPECIFIED MOOD [AFFECTIVE] DISORDER Active 09-07 00:00: 00 NEUROMUSCULA R DYSFUNCTION OF BLADDER, UNSPECIFIED Active 09-07 00:00: 00 IMPACTED CERUMEN, RIGHT EAR Active 09-07 00:00: 00 PRESENCE OF CORONARY ANGIOPLASTY IMPLANT AND GRAFT Active 09-07 00:00: 00 PERSONAL HISTORY OF OTHER VENOUS THROMBOSIS AND EMBOLISM Active 09-07 00:00: 00 PERSONAL HISTORY OF URINARY (TRACT) INFECTIONS Active 09-07 00:00: 00 SENIOR LIVING (CURRENT) USE OF ASPIRIN Active 09-07 00:00: 00 ENCOUNTER FOR THERAPEUTIC DRUG LEVEL MONITORING Active 09-07 00:00: 00 RN ICU (CURRENT) USE OF ANTICOAGULAN TS Active 09-07 00:00: 00 Allergies, Adverse Reactions, Alerts Allergy Name Allergy Type Status Severity Reaction(s) Onset Date Inactive Date Treating Clinician Comments DARVOCET-N 50 Propensity to adverse reactions Active 09-06 08:35: 34 PREDNISONE Propensity to adverse reactions Active 09-06 08:35: 44 GE INHIBITOR Propensity to adverse reactions Active 09-06 08:35: 59 TOVIAZ Propensity to adverse reactions Active 09-06 08:36: 13 ASPIRIN Propensity to adverse reactions Inactive 09-06 08:36: 20 2021-08-22 7 00:00:00 CIPROFLOXAC IN Propensity to adverse reactions Active 09-06 08:36: 32 PRAVASTATIN Propensity to adverse reactions Active 09-06 08:36: 41 ATORVASTATI N Propensity to adverse reactions Active 09-06 08:36: 53 BACTRIM Propensity to adverse reactions Active 09-06 08:37: 02 ROSUVASTATI N Propensity to adverse reactions Inactive 09-06 08:37: 11 2021-08-22 7 00:00:00 AMOXICILLIN Propensity to adverse reactions Active 09-07 13:59: 36 Medications Ordered Medication Name Filled Medication Name Start Date Stop Date Current Medication? Ordering Clinician Indication Dosage Frequency Signature (SIG) Comments Components alprazolam 1 mg tablet 01-26 00:00: 00 09-05 23:59 :00 No [id number] ANXIETY 1 tablet TWO TIMES A DAY PRN 1 tablet TWO TIMES A DAY PRN (route: oral) Med Classific ation: Central Nervous System Agents Aspirin Childrens 81 mg chewable tablet 01-26 00:00: 00 09-05 23:59 :00 No [id number] CLOT PREVENTION 1 tablet ONCE DAILY 1 tablet ONCE DAILY (route: oral) Med Classific ation: Hematolog ical Agents benazepril 10 mg tablet 01-26 00:00: 00 09-05 23:59 :00 No [id number] HIGH BLOOD PRESSURE 1 tablet ONCE DAILY 1 tablet ONCE DAILY (route: oral) Med Classific ation: Cardiovas cular Therapy Agents furosemide 20 mg tablet 01-26 00:00: 00 09-05 23:59 :00 No [id number] FLUID RETENTION 1 tablet ONCE DAILY 1 tablet ONCE DAILY (route: oral) Med Classific ation: Cardiovas cular Therapy Agents rosuvastati n 10 mg tablet 01-26 00:00: 00 09-05 23:59 :00 No [id number] HIGH CHOLESTEROL 1 tablet AT BEDTIME 1 tablet AT BEDTIME (route: oral) Med Classific ation: Cardiovas cular Therapy Agents warfarin 3 mg tablet 01-26 00:00: 00 09-05 23:59 :00 No [id number] CLOT PREVENTION 1 tablet ONCE DAILY 1 tablet ONCE DAILY (route: oral) Med Classific ation: Hematolog ical Agents alprazolam 1 mg tablet 09-07 00:00: 00 Yes [id number] ANXIETY 1 tablet TWICE DAILY 1 tablet TWICE DAILY (route: oral) Med Classific ation: Central Nervous System Agents Aspirin Childrens 81 mg chewable tablet 09-07 00:00: 00 Yes [id number] CORONARY ARTERY DISEASE 1 tablet ONCE DAILY 1 tablet ONCE DAILY (route: oral) Med Classific ation: Hematolog ical Agents benazepril 10 mg tablet 09-07 00:00: 00 Yes [id number] HYPERTENSIO N 1 tablet ONCE DAILY 1 tablet ONCE DAILY (route: oral) Med Classific ation: Cardiovas cular Therapy Agents Crestor 10 mg tablet 09-07 00:00: 00 Yes [id number] HIGH CHOLESTEROL 1 tablet ONCE DAILY 1 tablet ONCE DAILY (route: oral) Med Classific ation: Cardiovas cular Therapy Agents fluconazole 100 mg tablet 09-07 00:00: 00 09-13 23:59 :00 No [id number] THRUSH 1 tablet DIRECTED 1 tablet DIRECTED (route: oral) Med Classific ation: Anti-Infe ctive Agents furosemide 20 mg tablet 09-07 00:00: 00 Yes [id number] FLUID RETENTION 1 tablet ONCE DAILY 1 tablet ONCE DAILY (route: oral) Med Classific ation: Cardiovas cular Therapy Agents warfarin 3 mg tablet 09-07 00:00: 00 Yes [id number] BLOOD CLOT PREVENTION 1 tablet ONCE DAILY 1 tablet ONCE DAILY (route: oral) Med Classific ation: Hematolog ical Agents levofloxaci n 250 mg tablet 10-13 00:00: 00 10-22 23:59 :00 No [id number] URINARY TRACT INFECTION 1 tablet ONCE DAILY 1 tablet ONCE DAILY (route: oral) Alternate Route: BY MOUTH. Med Classific ation: Anti-Infe ctive Agents Immunizations Ordered Immunization Name Filled Immunization Name Date Status Comments Refusal Reason PNEUMOCOCCAL (PPV), PPV 2021-06-28 00:00:00 COVID-19 DOSE 3 (BOOSTER), MRNA 2021-06-16 00:00:00 INFLUENZA, TIV (INACTIVATED) 2021-02-22 00:00:00 Vital Signs Vital Name Observation Time Observation Value Commen ts Temperature 2021-11-01 11:21:53.000 97.8 [degF] Temperature 2021-10-24 11:32:13.000 97.6 [degF] Temperature 2021-10-17 18:52:34.000 97 [degF] Temperature 2021-10-11 10:25:52.000 97.8 [degF] Temperature 2021-10-03 11:41:20.000 97.6 [degF] Temperature 2021-10-02 15:18:34.000 98.1 [degF] Temperature 2021-09-29 11:01:03.000 97.4 [degF] Temperature 2021-09-28 15:27:53.000 97.9 [degF] Temperature 2021-09-27 10:21:06.000 98.2 [degF] Temperature 2021-09-22 14:01:20.000 97.6 [degF] Temperature 2021-09-21 11:08:08.000 97.1 [degF] Temperature 2021-09-20 14:50:51.000 97.8 [degF] Temperature 2021-09-14 09:41:51.000 97.9 [degF] Temperature 2021-09-13 16:40:00.000 97.6 [degF] Temperature 2021-09-13 10:15:18.000 97.8 [degF] Temperature 2021-09-12 13:07:43.000 97.9 [degF] Temperature 2021-09-07 14:17:59.000 97.8 [degF] Height 2021-09-07 14:13:20.000 65 [in_us] Pulse 2021-11-01 11:21:58.000 78 /min Pulse 2021-10-24 11:32:23.000 80 /min Pulse 2021-10-17 18:52:44.000 79 /min Pulse 2021-10-11 10:25:58.000 87 /min Pulse 2021-10-03 11:41:31.000 70 /min Pulse 2021-10-02 15:17:55.000 84 /min Pulse 2021-09-29 10:56:03.000 72 /min Pulse 2021-09-28 15:21:05.000 82 /min Pulse 2021-09-27 10:21:47.000 74 /min Pulse 2021-09-22 14:01:28.000 76 /min Pulse 2021-09-21 11:05:04.000 66 /min Pulse 2021-09-20 14:43:46.000 66 /min Pulse 2021-09-14 09:38:43.000 62 /min Pulse 2021-09-13 16:40:00.000 72 /min Pulse 2021-09-13 10:15:25.000 78 /min Pulse 2021-09-12 13:08:57.000 60 /min Pulse 2021-09-07 14:18:04.000 70 /min O2 Saturation (%) 2021-11-01 11:22:08.000 97 % O2 Saturation (%) 2021-10-24 11:32:34.000 98 % O2 Saturation (%) 2021-10-17 18:53:12.000 98 % O2 Saturation (%) 2021-10-11 10:26:11.000 98 % O2 Saturation (%) 2021-10-03 11:41:37.000 98 % O2 Saturation (%) 2021-10-02 15:18:56.000 98 % O2 Saturation (%) 2021-09-29 10:56:12.000 98 % O2 Saturation (%) 2021-09-28 15:21:12.000 98 % O2 Saturation (%) 2021-09-27 10:24:08.000 96 % O2 Saturation (%) 2021-09-22 14:01:37.000 96 % O2 Saturation (%) 2021-09-21 11:04:50.000 98 % O2 Saturation (%) 2021-09-20 14:44:16.000 98 % O2 Saturation (%) 2021-09-14 09:38:51.000 98 % O2 Saturation (%) 2021-09-13 16:40:00.000 96 % O2 Saturation (%) 2021-09-13 10:15:45.000 96 % O2 Saturation (%) 2021-09-12 13:09:23.000 98 % O2 Saturation (%) 2021-09-07 14:18:28.000 97 % Respirations 2021-11-01 11:22:03.000 18 /min Respirations 2021-10-24 11:32:28.000 18 /min Respirations 2021-10-17 18:52:51.000 15 /min Respirations 2021-10-11 10:26:03.000 18 /min Respirations 2021-10-03 11:41:25.000 18 /min Respirations 2021-10-02 15:18:03.000 18 /min Respirations 2021-09-29 10:56:34.000 18 /min Respirations 2021-09-28 15:26:53.000 18 /min Respirations 2021-09-27 10:21:55.000 18 /min Respirations 2021-09-22 13:59:30.000 18 /min Respirations 2021-09-21 11:05:15.000 18 /min Respirations 2021-09-20 14:44:06.000 18 /min Respirations 2021-09-14 09:39:11.000 18 /min Respirations 2021-09-13 16:40:00.000 18 /min Respirations 2021-09-13 10:15:30.000 18 /min Respirations 2021-09-12 13:09:02.000 18 /min Respirations 2021-09-07 14:12:26.000 18 /min Weight (lbs) 2021-10-11 10:35:30.000 152.6 [lb_av] Weight (lbs) 2021-09-27 10:24:37.000 150 [lb_av] Weight (lbs) 2021-09-20 14:53:02.000 148 [lb_av] Weight (lbs) 2021-09-07 14:12:39.000 149 [lb_av] Systolic Blood Pressure 2021-11-01 11:23:49.000 134 mm [Hg] Systolic Blood Pressure 2021-10-24 11:40:37.000 130 mm [Hg] Systolic Blood Pressure 2021-10-17 18:53:04.000 137 mm [Hg] Systolic Blood Pressure 2021-10-11 10:31:12.000 134 mm [Hg] Systolic Blood Pressure 2021-10-03 11:42:59.000 132 mm [Hg] Systolic Blood Pressure 2021-10-02 15:18:45.000 118 mm [Hg] Systolic Blood Pressure 2021-09-29 10:59:03.000 120 mm [Hg] Systolic Blood Pressure 2021-09-28 15:27:05.000 124 mm [Hg] Systolic Blood Pressure 2021-09-27 10:22:06.000 110 mm [Hg] Systolic Blood Pressure 2021-09-22 14:04:02.000 132 mm [Hg] Systolic Blood Pressure 2021-09-21 11:06:32.000 126 mm [Hg] Systolic Blood Pressure 2021-09-20 14:47:37.000 126 mm [Hg] Systolic Blood Pressure 2021-09-14 09:40:29.000 118 mm [Hg] Systolic Blood Pressure 2021-09-13 16:40:00.000 120 mm [Hg] Systolic Blood Pressure 2021-09-13 10:15:39.000 114 mm [Hg] Systolic Blood Pressure 2021-09-12 13:09:11.000 110 mm [Hg] Systolic Blood Pressure 2021-09-07 14:18:18.000 118 mm [Hg] Diastolic Blood Pressure 2021-11-01 11:23:49.000 68 mm [Hg] Diastolic Blood Pressure 2021-10-24 11:40:37.000 70 mm [Hg] Diastolic Blood Pressure 2021-10-17 18:53:04.000 77 mm [Hg] Diastolic Blood Pressure 2021-10-11 10:31:12.000 70 mm [Hg] Diastolic Blood Pressure 2021-10-03 11:42:59.000 70 mm [Hg] Diastolic Blood Pressure 2021-10-02 15:18:45.000 64 mm [Hg] Diastolic Blood Pressure 2021-09-29 10:59:03.000 62 mm [Hg] Diastolic Blood Pressure 2021-09-28 15:27:05.000 66 mm [Hg] Diastolic Blood Pressure 2021-09-27 10:22:06.000 66 mm [Hg] Diastolic Blood Pressure 2021-09-22 14:04:02.000 58 mm [Hg] Diastolic Blood Pressure 2021-09-21 11:06:32.000 66 mm [Hg] Diastolic Blood Pressure 2021-09-20 14:47:37.000 64 mm [Hg] Diastolic Blood Pressure 2021-09-14 09:40:29.000 64 mm [Hg] Diastolic Blood Pressure 2021-09-13 16:40:00.000 62 mm [Hg] Diastolic Blood Pressure 2021-09-13 10:15:39.000 60 mm [Hg] Diastolic Blood Pressure 2021-09-12 13:09:11.000 62 mm [Hg] Diastolic Blood Pressure 2021-09-07 14:18:18.000 64 mm [Hg] Plan of Treatment Planned Activity Planned Date Details Comments Future Scheduled Test IN RESPONS E TO STAY AT HOME EMERGENCY DECLARATION, THE PATIENT IS HOMEBOUND BECAUSE LEAVING THE HOUSE WOULD PUT THE PATIENT AT UNACCEPTABLY HIGH RISK OF ACQUIRING AN INFECTIOUS DISEASE SUCH COVID-19, OR THE PATIENTS MEDICAL CONDITION WOULD FURTHER EXACERBATE LEADING TO COMPLICATIONS. THE CERTIFYING PHYSICIAN, ASSOCIATED PHYSICIAN, NPP OR PA WITHIN THE SAME GROUP MAY APPROVE AND SIGN THE ORDER (ON ANY PAGE) ATTESTING THAT THE COMPREHENSIVE OUTCOME ASSESSMENTS, EVALUATIONS, AND HOME HEALTH CERTIFICATION PLANS SUPPORT HOMEBOUND STATUS. HOME HEALTH WEB-PORTAL DOCUMENTATION ACCESSED BY THE PHYSICIAN MUST BE INCORPORATED INTO THE MEDICAL RECORD TO CORROBORATE THE PHYSICIAN, NPP, OR PAS F2F ENCOUNTER TO SUPPORT ELIGIBILITY FOR HOME HEALTH SERVICES. [code = IN RESPONSE TO STAY AT HOME EMERGENCY DECLARATION, THE PATIENT IS HOMEBOUND BECAUSE LEAVING THE HOUSE WOULD PUT THE PATIENT AT UNACCEPTABLY HIGH RISK OF ACQUIRING AN INFECTIOUS DISEASE SUCH COVID-19, OR THE PATIENTS MEDICAL CONDITION WOULD FURTHER EXACERBATE LEADING TO COMPLICATIONS. THE CERTIFYING PHYSICIAN, ASSOCIATED PHYSICIAN, NPP OR PA WITHIN THE SAME GROUP MAY APPROVE AND SIGN THE ORDER (ON ANY PAGE) ATTESTING THAT THE COMPREHENSIVE OUTCOME ASSESSMENTS, EVALUATIONS, AND HOME HEALTH CERTIFICATION PLANS SUPPORT HOMEBOUND STATUS. HOME HEALTH WEB-PORTAL DOCUMENTATION ACCESSED BY THE PHYSICIAN MUST BE INCORPORATED INTO THE MEDICAL RECORD TO CORROBORATE THE PHYSICIAN, NPP, OR PAS F2F ENCOUNTER TO SUPPORT ELIGIBILITY FOR HOME HEALTH SERVICES.] Future Scheduled Test EACH ORDER ED IN-HOME OR TELEHEALTH VISIT, THE SKILLED NURSE WILL CONDUCT A COMPREHENSIVE ASSESSMENT INCLUDING VITAL SIGNS, PAIN, SAFETY, MENTAL/COGNITIVE/PSYCHOSOCIAL STATUS, MED MANAGEMENT, NUTRITION, SKIN INTEGRITY, PRESSURE ULCER PREVENTION, AND PATIENT/CAREGIVER ABILITY TO SUPPORT ORDERED CARE. SKILLED NURSE WILL INSTRUCT ON DISEASE PROCESS, MED MGMT., FALL PREVENTION AND SAFETY, INFECTION CONTROL AND PREVENTION, WARNING SIGNS, ADDRESS RESULTS OUTSIDE OF ORDERED PARAMETERS LISTED ON CARE PLAN, AND COORDINATE DISCHARGE WITH THE TREATING PROVIDER. MAY ACCEPT ORDERS FROM THE FOLLOWING PROVIDER(S) WHO WILL BE CONSULTING ON THE CERTIFIED CARE PLAN: DR SUKHI FRANKEL [code = EACH ORDERED IN-HOME OR TELEHEALTH VISIT, THE SKILLED NURSE WILL CONDUCT A COMPREHENSIVE ASSESSMENT INCLUDING VITAL SIGNS, PAIN, SAFETY, MENTAL/COGNITIVE/PSYCHOSOCIAL STATUS, MED MANAGEMENT, NUTRITION, SKIN INTEGRITY, PRESSURE ULCER PREVENTION, AND PATIENT/CAREGIVER ABILITY TO SUPPORT ORDERED CARE. SKILLED NURSE WILL INSTRUCT ON DISEASE PROCESS, MED MGMT., FALL PREVENTION AND SAFETY, INFECTION CONTROL AND PREVENTION, WARNING SIGNS, ADDRESS RESULTS OUTSIDE OF ORDERED PARAMETERS LISTED ON CARE PLAN, AND COORDINATE DISCHARGE WITH THE TREATING PROVIDER. MAY ACCEPT ORDERS FROM THE FOLLOWING PROVIDER(S) WHO WILL BE CONSULTING ON THE CERTIFIED CARE PLAN: DR SUKHI FRANKEL] Future Scheduled Test SKILLED NU RSE TO INSTRUCT PATIENT/CAREGIVER ON WHAT IS HYPERTENSION, HOW TO CHECK HIS/HER BLOOD PRESSURE, AND STRATEGIES TO USE TO CONTROL BLOOD PRESSURE SUCH MONITORING BP, SMOKING CESSATION, MONITORING WEIGHTS, ENGAGING IN PHYSICAL ACTIVITY AIMING FOR 150 MINUTES SPREAD THROUGHOUT THE WEEK. [code = SKILLED NURSE TO INSTRUCT PATIENT/CAREGIVER ON WHAT IS HYPERTENSION, HOW TO CHECK HIS/HER BLOOD PRESSURE, AND STRATEGIES TO USE TO CONTROL BLOOD PRESSURE SUCH MONITORING BP, SMOKING CESSATION, MONITORING WEIGHTS, ENGAGING IN PHYSICAL ACTIVITY AIMING FOR 150 MINUTES SPREAD THROUGHOUT THE WEEK.] Future Scheduled Test HOME HEALT H NURSE WILL ASSESS FOR COMPLICATIONS RELATED TO ANTICOAGULATION USE AND INSTRUCT PATIENT/CAREGIVER ABOUT PRECAUTIONS TO FOLLOW AND SIGNS/SYMPTOMS TO REPORT. [code = HOME HEALTH NURSE WILL ASSESS FOR COMPLICATIONS RELATED TO ANTICOAGULATION USE AND INSTRUCT PATIENT/CAREGIVER ABOUT PRECAUTIONS TO FOLLOW AND SIGNS/SYMPTOMS TO REPORT.] Future Scheduled Test SKILLED NU RSE TO OBSERVE AND ASSESS PATIENT WITH GENERALIZED DEPRESSION AND TEACH DEPRESSIVE SYMPTOMS. [code = SKILLED NURSE TO OBSERVE AND ASSESS PATIENT WITH GENERALIZED DEPRESSION AND TEACH DEPRESSIVE SYMPTOMS.] Future Scheduled Test SKILLED NU RSE TO ASSESS PATIENT WITH ANXIETY DISORDER AND TEACH SYMPTOMS OF ANXIETY. [code = SKILLED NURSE TO ASSESS PATIENT WITH ANXIETY DISORDER AND TEACH SYMPTOMS OF ANXIETY.] Future Scheduled Test FOR EACH O RDERED, IN-HOME OR TELEHEALTH VISIT, THE PHYSICAL THERAPIST WILL EVALUATE PATIENT AND TREAT PATIENTS FUNCTIONAL DEFICITS, ASSESS SKIN INTEGRITY, MED MANAGEMENT, AND PAIN MANAGEMENT RELATED TO THE PRIMARY MEDICAL DIAGNOSIS AND ACTIVE CO-MORBIDITIES THAT MAY IMPACT THE PATIENTS OUTCOME. IN RESPONSE TO STAY AT HOME EMERGENCY DECLARATION, THE PATIENT IS HOMEBOUND BECAUSE LEAVING THE HOUSE WOULD PUT THE PATIENT AT UNACCEPTABLY HIGH RISK OF ACQUIRING AN INFECTIOUS DISEASE SUCH COVID-19, OR THE PATIENTS MEDICAL CONDITION WOULD FURTHER EXACERBATE LEADING TO COMPLICATIONS. [code = FOR EACH ORDERED, IN-HOME OR TELEHEALTH VISIT, THE PHYSICAL THERAPIST WILL EVALUATE PATIENT AND TREAT PATIENTS FUNCTIONAL DEFICITS, ASSESS SKIN INTEGRITY, MED MANAGEMENT, AND PAIN MANAGEMENT RELATED TO THE PRIMARY MEDICAL DIAGNOSIS AND ACTIVE CO-MORBIDITIES THAT MAY IMPACT THE PATIENTS OUTCOME. IN RESPONSE TO STAY AT HOME EMERGENCY DECLARATION, THE PATIENT IS HOMEBOUND BECAUSE LEAVING THE HOUSE WOULD PUT THE PATIENT AT UNACCEPTABLY HIGH RISK OF ACQUIRING AN INFECTIOUS DISEASE SUCH COVID-19, OR THE PATIENTS MEDICAL CONDITION WOULD FURTHER EXACERBATE LEADING TO COMPLICATIONS.] Future Scheduled Test HOME HEALT H NURSE TO OBTAIN CMP, CBC, CRP, PT/INR ON 09/12/21 VIA VENIPUNCTURE USING NECESSARY SUPPLIES. FAX RESULTS TO DR FRANKEL. [code = HOME HEALTH NURSE TO OBTAIN CMP, CBC, CRP, PT/INR ON 09/12/21 VIA VENIPUNCTURE USING NECESSARY SUPPLIES. FAX RESULTS TO DR FRANKEL. ] Future Scheduled Test HOME HEALT H NURSE TO INSTRUCT PATIENT/CAREGIVER ABOUT GASTROESOPHAGEAL REFLUX, SIGNS AND SYMPTOMS OF WARNING SIGNS TO REPORT, AND MANAGEMENT OF THE ILLNESS. [code = HOME HEALTH NURSE TO INSTRUCT PATIENT/CAREGIVER ABOUT GASTROESOPHAGEAL REFLUX, SIGNS AND SYMPTOMS OF WARNING SIGNS TO REPORT, AND MANAGEMENT OF THE ILLNESS.] Future Scheduled Test OBSERVE AN D ASSESS PATIENT FOR SIGNS/SYMPTOMS OF ANXIETY, AND PROVIDE TEACHING RELATED TO ANXIETY MANAGEMENT INCLUDING SIGNS/SYMPTOMS TO REPORT TO PHYSICIAN, POSSIBLE COMPLICATIONS, RELATIONSHIP TO FUNCTIONAL PERFORMANCE, AND RELAXATION/VISUALIZATION TECHNIQUES. FOR EACH ORDERED, IN-HOME OR TELEHEALTH VISIT, THE PHYSICAL THERAPIST WILL EVALUATE PATIENT AND TREAT PATIENTS FUNCTIONAL DEFICITS, ASSESS SKIN INTEGRITY, MED MANAGEMENT, AND PAIN MANAGEMENT RELATED TO THE PRIMARY MEDICAL DIAGNOSIS AND ACTIVE CO-MORBIDITIES THAT MAY IMPACT THE PATIENTS OUTCOME. IN RESPONSE TO STAY AT HOME EMERGENCY DECLARATION, THE PATIENT IS HOMEBOUND BECAUSE LEAVING THE HOUSE WOULD PUT THE PATIENT AT UNACCEPTABLY HIGH RISK OF ACQUIRING AN INFECTIOUS DISEASE SUCH COVID-19, OR THE PATIENTS MEDICAL CONDITION WOULD FURTHER EXACERBATE LEADING TO COMPLICATIONS. INSTRUCT ON FUNCTIONAL TRANSFERS, BED MOBILITY, AND FALL RISK REDUCTION STRATEGIES INCLUDING USE OF ADAPTIVE EQUIPMENT AND EDUCATION FOR HOME MODIFICATIONS TO MAXIMIZE SAFETY, IMPROVE FUNCTION, AND DECREASED FALL RISK. INSTRUCT ON GAIT TRAINING, BALANCE TRAINING, AND FALL RISK REDUCTION STRATEGIES INCLUDING USE OF ADAPTIVE EQUIPMENT AND EDUCATION FOR HOME MODIFICATIONS TO MAXIMIZE SAFETY, IMPROVE FUNCTION, AND DECREASED FALL RISK. PROVIDE EXERCISES DESIGNED TO RESTORE FUNCTIONAL RANGE OF MOTION, STRENGTH, NEUROMUSCULAR AND SENSORIMOTOR FUNCTION, AND TO INSTRUCT/UPGRADE IN THERAPEUTIC HOME EXERCISE/ACTIVITY PROGRAM. IN RESPONSE TO STAY AT HOME EMERGENCY DECLARATION, THE PATIENT IS HOMEBOUND BECAUSE LEAVING THE HOUSE WOULD PUT THE PATIENT AT UNACCEPTABLY HIGH RISK OF ACQUIRING AN INFECTIOUS DISEASE SUCH COVID-19, OR THE PATIENTS MEDICAL CONDITION WOULD FURTHER EXACERBATE LEADING TO COMPLICATIONS. OBSERVE AND ASSESS PATIENT FOR SIGNS/SYMPTOMS OF GENERALIZED DEPRESSION INCLUDING NEED FOR PHYSICIAN FOLLOW UP FOR POTENTIAL MEDICATION CHANGES AND/OR REFERRAL TO PERMANENT MOLD SUPERVISOR FOR DEPRESSION MANAGEMENT. [code = OBSERVE AND ASSESS PATIENT FOR SIGNS/SYMPTOMS OF ANXIETY, AND PROVIDE TEACHING RELATED TO ANXIETY MANAGEMENT INCLUDING SIGNS/SYMPTOMS TO REPORT TO PHYSICIAN, POSSIBLE COMPLICATIONS, RELATIONSHIP TO FUNCTIONAL PERFORMANCE, AND RELAXATION/VISUALIZATION TECHNIQUES. FOR EACH ORDERED, IN-HOME OR TELEHEALTH VISIT, THE PHYSICAL THERAPIST WILL EVALUATE PATIENT AND TREAT PATIENTS FUNCTIONAL DEFICITS, ASSESS SKIN INTEGRITY, MED MANAGEMENT, AND PAIN MANAGEMENT RELATED TO THE PRIMARY MEDICAL DIAGNOSIS AND ACTIVE CO-MORBIDITIES THAT MAY IMPACT THE PATIENTS OUTCOME. IN RESPONSE TO STAY AT HOME EMERGENCY DECLARATION, THE PATIENT IS HOMEBOUND BECAUSE LEAVING THE HOUSE WOULD PUT THE PATIENT AT UNACCEPTABLY HIGH RISK OF ACQUIRING AN INFECTIOUS DISEASE SUCH COVID-19, OR THE PATIENTS MEDICAL CONDITION WOULD FURTHER EXACERBATE LEADING TO COMPLICATIONS. INSTRUCT ON FUNCTIONAL TRANSFERS, BED MOBILITY, AND FALL RISK REDUCTION STRATEGIES INCLUDING USE OF ADAPTIVE EQUIPMENT AND EDUCATION FOR HOME MODIFICATIONS TO MAXIMIZE SAFETY, IMPROVE FUNCTION, AND DECREASED FALL RISK. INSTRUCT ON GAIT TRAINING, BALANCE TRAINING, AND FALL RISK REDUCTION STRATEGIES INCLUDING USE OF ADAPTIVE EQUIPMENT AND EDUCATION FOR HOME MODIFICATIONS TO MAXIMIZE SAFETY, IMPROVE FUNCTION, AND DECREASED FALL RISK. PROVIDE EXERCISES DESIGNED TO RESTORE FUNCTIONAL RANGE OF MOTION, STRENGTH, NEUROMUSCULAR AND SENSORIMOTOR FUNCTION, AND TO INSTRUCT/UPGRADE IN THERAPEUTIC HOME EXERCISE/ACTIVITY PROGRAM. IN RESPONSE TO STAY AT HOME EMERGENCY DECLARATION, THE PATIENT IS HOMEBOUND BECAUSE LEAVING THE HOUSE WOULD PUT THE PATIENT AT UNACCEPTABLY HIGH RISK OF ACQUIRING AN INFECTIOUS DISEASE SUCH COVID-19, OR THE PATIENTS MEDICAL CONDITION WOULD FURTHER EXACERBATE LEADING TO COMPLICATIONS. OBSERVE AND ASSESS PATIENT FOR SIGNS/SYMPTOMS OF GENERALIZED DEPRESSION INCLUDING NEED FOR PHYSICIAN FOLLOW UP FOR POTENTIAL MEDICATION CHANGES AND/OR REFERRAL TO PERMANENT MOLD SUPERVISOR FOR DEPRESSION MANAGEMENT.] Goal 2021-11-01 Patient Goal - TO GAIN MORE STRENGTH Goal Provider Goal - A PLAN OF CARE WILL BE ESTABLISHED THAT MEETS ALL PATIENT'S CORRECTION NEEDS AND COUNTER SIGNED BY PHYSICIAN. Goal Provider Goal - PATIENT WILL BE FREE OF FALLS AND HOSPITALIZATIONS THROUGHOUT EPISODE OF CARE. PATIENT/CAREGIVER WILL UNDERSTAND AND ADHERE TO ORDERED DIET. PATIENT/CAREGIVER WILL INDEPENDENTLY MANAGE MEDICATIONS, UNDERSTAND ANY CHANGES, SIDE EFFECTS TO REPORT BY 11/05/21. PATIENT WILL BE FREE OF INFECTION AND UNDERSTAND MEASURES OF PREVENTION. PATIENT/CAREGIVER WILL COLLABORATE WITH SKILLED NURSE TO DEVELOP POC AT SOC AND ON AN ONGOING BASIS UPDATES ARE NEEDED. UNDERSTAND PROGRESS MADE/DISCHARGE PLANNING. ADDITIONAL ORDERS WILL BE RECEIVED FROM ALTERNATE PHYSICIANS IN A TIMELY MANNER. Goal Provider Goal - PATIENT/CAREGIVER WILL INDEPENDENTLY DEMONSTRATE HOW TO CHECK HIS/HER OWN BP AND VERBALIZE WHAT STRATEGIES CAN ASSIST TO CONTROL BLOOD PRESSURE. Goal Provider Goal - PATIENT/CAREGIVER WILL VERBALIZE UNDERSTANDING OF THE SIGNS/SYMPTOMS TO REPORT AND PRECAUTIONS TO FOLLOW BY END OF HOME HEALTH SERVICES. Goal Provider Goal - PATIENT/CAREGIVER WILL VERBALIZE UNDERSTANDING OF THE CONTRIBUTING FACTORS AND SYMPTOMS OF DEPRESSION. Goal Provider Goal - PATIENT/CAREGIVER WILL VERBALIZE UNDERSTANDING OF THE CONTRIBUTING FACTORS AND SYMPTOMS OF ANXIETY. Goal Provider Goal - PHYSICAL THERAPY EVALUATION WILL BE COMPLETED, AND A PLAN OF CARE WILL BE DEVELOPED FOR THE TREATMENT OF PATIENT DEFICITS RELATED TO PRIMARY DIAGNOSIS FOR HOME CARE EPISODE. PATIENT/CAREGIVER TO VERBALIZE AND DEMONSTRATE UNDERSTANDING OF ASSOCIATED DISEASE PROCESSES AND THEIR INFLUENCE ON FUNCTION IN THE HOME ENVIRONMENT AND MINIMIZE RISK OF HOSPITALIZATION. Goal Provider Goal - PATIENT/CAREGIVER WILL VERBALIZE UNDERSTANDING OF THE NEED TO COLLECT THE LAB AND TOLERATE THE LAB COLLECTION PROCEDURE WITHOUT INJURY OR INFECTION. Goal Provider Goal - PATIENT/CAREGIVER WILL INDEPENDENTLY VERBALIZE WHAT IS GERD, HOW TO MANAGE GERD AND WHEN TO REPORT WHEN TO REPORT WARNING SIGNS TO A NURSE, PHYSICIAN OR 911. Goal Provider Goal - PATIENT WILL DEMONSTRATE IMPROVED ADL/IADL TASK PERFORMANCE WITH REDUCED VERBALIZED ANXIETY. PHYSICAL THERAPY EVALUATION WILL BE COMPLETED, AND A PLAN OF CARE WILL BE DEVELOPED FOR THE TREATMENT OF PATIENT DEFICITS RELATED TO PRIMARY DIAGNOSIS FOR HOME CARE EPISODE. PATIENT/CAREGIVER TO VERBALIZE AND DEMONSTRATE UNDERSTANDING OF ASSOCIATED DISEASE PROCESSES AND THEIR INFLUENCE ON FUNCTION IN THE HOME ENVIRONMENT AND MINIMIZE RISK OF HOSPITALIZATION. PATIENT WILL DEMONSTRATE IMPROVED UNDERSTANDING OF MEASURES THAT WILL RESULT IN DECREASED FALL RISK AND A SAFE HOME ENVIRONMENT DURING FUNCTIONAL TRANSFERS AND BED MOBILITY TO ACHIEVE THERAPY SHORT TERM/SENIOR LIVING GOALS BELOW. PATIENT WILL DEMONSTRATE IMPROVED SAFETY AND ABILITY WITH GAIT, BALANCE, AND FUNCTIONAL ACTIVITIES TO ACHIEVE THERAPY SHORT TERM/RN ICU GOALS BELOW. PATIENT WILL RETURN DEMONSTRATE ACCURATE EXECUTION OF ESTABLISHED HOME EXERCISE PROGRAM. PATIENT WILL REMAIN SAFE AND RECEIVE CARE AT HOME. PATIENT/CAREGIVER WILL VERBALIZE UNDERSTANDING OF DEPRESSION MANAGEMENT TECHNIQUES INCLUDING MEDICATION COMPLIANCE AND MENTAL STIMULATION AND ENGAGEMENT. Reason for Visit INDEPENDENT IN THE COMMUNITY Encounters Start Date/Time End Date/Time Encounter Type Admission Type Attending [facility] Care Department Encounter ID Discharge Date Discharge Status Discharge Condition Discharge Reason Percent Goals Met 2021-09-07 00:00:00 2021-11-01 00:00:00 Outpatient [facility] [id number] [id number] 00:00:00 DISCHARGE TO HOME OR SELF CARE INDEPENDEN T IN THE COMMUNITY GOALS MET 100.00
--- OUTSIDE RECORDS SUMMARY | 2024-06-08 20:47 | XMS_ITS | Encounter Summary ---
Author Organization [facility] Address [address] [place] [address]. [place] [address] [place] [address] Care Team Providers Care Field Education Coordinator Name Role Phone Jose A Lakhani DO Primary Care Provider [phone] Reason for Visit * Reason Onset Date Comments Appointment Request 06/06/2023 Encounter Details Date Type Department Care Team ([facility] Contact Info) Description 06/06/2023 Telephone [facility] ld [address] [place] [address] Marcin Gomez PA-C [address] [place] [address] Appointment Request Social History Tobacco Use Types Packs/Day Years Used Date Smoking Tobacco: Never Smokeless Tobacco: Never [facility] Utilities Answer Date Recorded In the past 12 months has [facility] [employer], gas, oil, or water Celleration threatened to shut off services in your [...] place to sleep or slept in a long-term (including now)? No 05/27/2023 Comments No Sex [...] Assessment Author Status No 05/27/2023 1:00 PM AUTOMATIC SPINNING LATHE OPERATOR Erendira Pagan RN Active * Because of a physical, [...] documented in this encounter Progress Notes * Rosa Ramirez - 06/21/2023 8:44 AM CST Returned call to pt - confirming she wants to cancel appt- Pt thought appt was in June - when it is actually 07/26/23 with Juan Gomez at 1:00 after she has completed the 30 day BG Pt v/u and will keep the appt MATIC SPINNING LATHE OPERATOR * Rosa Ramirez - 06/21/2023 7:12 AM CST VM received at 1:22 on 06/20 Pt calling - I need to cancel my appt with Ed Patricia Thank you MATIC SPINNING LATHE OPERATOR * Rosa Ramirez - 06/06/2023 12:28 PM CST Appt scheduled on 07/26/23 at 1:00 with Juan Gomez at [facility] Letter is mailed MATIC SPINNING LATHE OPERATOR * Rsoa Ramirez - 06/06/2023 12:27 PM CST ----- Message from Marcin Gomez PA-C sent at 06/04/2023 5:27 PM AUTOMATIC SPINNING LATHE OPERATOR ----- Regarding: Needs hospital follow-up appointment in 6 weeks MATIC SPINNING LATHE OPERATOR documented in this encounter Plan of Treatment Not on file documented as of this encounter Visit Diagnoses Not on filedocumented in this encounter Care Teams Field Education Coordinator Relationship Specialty Start Date End Date Jose A Lakhani DO [address] [place] [address] PCP - General FAMILY PRACTICE 05/24/23 documented as of this encounter
--- OUTSIDE RECORDS SUMMARY | 2024-06-08 20:47 | XMS_ITS | Encounter Summary ---
Author Organization [facility] Address [facility] [facility] [place] [address] [place] [address] Care Team Providers Care Prison Officer Name Role Phone Jose A Lakhani DO Primary Care Provider [phone] Reason for Referral * Imaging (Routine) - Closed Specialty Diagnoses / Procedures Referred By Contac t Referred To Contact CARDIOLOGY Diagnoses Syncope, unspecified syncope type Procedures [facility] - [id number] [facility] - [facility] Marcin Gomez PA-C [address] [place] [address] Phone: tel: fax: Referral ID Status Reason Start Date Expiration Date Visits Re quested Visits Authorized [id number] Closed 05/29/2023 05/29/2024 1 1 K 12 PRINCIPAL Encounter Details Date Type Department Care Team (Late st Contact Info) Description 05/29/2023 Orders Only [facility] [address] [place] [address] Marcin Gomez PA-C [address] [place] [address] Social History Tobacco Use Types Packs/Day Years Used Date Smoking Tobacco: Never Smokeless Tobacco: Never [facility] Utilities Answer Date Recorded In the past 12 months has e electric, gas, oil, or water company [...] place to sleep or slept in a nursing home (including now)? No 05/27/2023 Comments No [...] documented as of this encounter Results * CLINIC - [id number] [facility] - Today (07/12/2023 10:36 AM [facility] - 07[facility]12/2023 10:36 AM [facility] Ambulatory Store Stock Help Report Patient Name: Linda Garza : 1940 CSN: [id number] Date of Testin06/11/23 - 07/10/23 Date of Report: 07/19/23 Type of Cardiac Ambulatory Monitor: Mobile Cardiac Telemetry Ordering Provider: TATIANNA GO MD Indication: Syncope FINDINGS: The patient underwent cardiac monitoring for a total of 27 days, 15 hours and 56 minutes. Predominant rhythm: The baseline rhythm was sinus with heart rates ranging between 53 and 132 bpm, and average rate of 84 bpm. Sinus node function: ?? Sinus node function was normal. Severe bradycardia was not observed. Chronotropic incompetence was not observed. Pauses longer than 3 seconds were not observed. A-V conduction: ?? A-V conduction was normal. ??Significant A-V block was not observed. Supraventricular arrhythmias: There were 9 episodes of asymptomatic non-sustained atrial tachycardia observed. The longest episode was 6.1s on 06/26 01:29, and the fastest episode was 181 BPM on 07/01 18:07. Atrial arrhythmias: PAC burden was 2%. ??Atrial fibrillation and flutter burden was 0%. Ventricular arrhythmias: ?? PVC burden was <1%. There were no episodes of non-sustained ventricular tachycardia observed. Symptoms: ?? There were 11 patient triggered events. Symptoms reported: Swelling in legs, palpitations, increase in coughing. Events correlated with Sinus rhythm. SUMMARY: - There were no significant abnormalities noted. Signed TATIANNA GO MD 07/19/2023 Marcin Gomez PA-C CV VASCULAR ORDERABLES Final Result [facility] documented in this encounter Visit Diagnoses Diagnosis Syncope, unspecified syncope type- Primary Syncope, unspecified syncope type documented in this encounter Care Teams Prison Officer Relationship Specialty Start Date End Date Jose A Lakhani DO [address] [place] [address] PCP - General FAMILY PRACTICE 05/24/23 documented as of this encounter
--- OUTSIDE RECORDS SUMMARY | 2024-06-08 20:47 | XMS_ITS | Encounter Summary ---
Author Organization [facility] Address [address] [place] [address]. [place] [address] [place] [address] Care Team Providers Care Glue Clamp Operator Name Role Phone Jose A Lakhani DO Primary Care Provider [phone] Reason for Visit * Reason Onset Date Comments Holter Monitor 06/10/2023 * Imaging (Routine) - Closed Specialty Diagnoses / Procedures Referred By Stacie varela Referred To Contact CARDIOLOGY Diagnoses Syncope, unspecified syncope type Procedures CLINIC - [id number] [facility] - Today Marcin Gomez PA-C [address] [place] [address] Phone: tel: fax: Referral ID Status Reason Start Date Expiration Date Visits Re quested Visits Authorized [id number] Closed 05/29/2023 05/29/2024 1 1 Encounter Details Date Type Department Care Team (Late st Contact Info) Description 06/10/2023 9:45 AM STAFF NUCLEAR MEDICINE TECHNOLOGIST [facility]phone [facility] [address] [place] [address] Marcin Gomez PA-C [address] [place] [address] Holter Monitor Social History Tobacco Use Types Packs/Day Years Used Date Smoking Tobacco: Never Smokeless Tobacco: Never [facility] Utilities Answer Date Recorded In the past [...] documented in this encounter Progress Notes * Ivy De La Fuente, Automatic Embroidery Machine Tender - 06/10/2023 9:46 AM CST 30 Day BG Sent To Patient [phone] shipping [phone] return F NUCLEAR MEDICINE TECHNOLOGIST documented in this encounter Plan of Treatment Not on file documented as of this encounter Procedures Procedure Name Priority Date/Time Associated Diagnosis Comments MOBILE CONTINUOUS TELEMETRY Routine 07/12/2023 10:36 AM STAFF NUCLEAR MEDICINE TECHNOLOGIST Syncope, unspecified syncope type documented in this encounter Results * CLINIC - [id number] [facility] - Today (07/12/2023 10:36 AM STAFF NUCLEAR MEDICINE TECHNOLOGIST) [facility] - 07/12/2023 10:36 AM STAFF NUCLEAR MEDICINE TECHNOLOGIST [facility] Ambulatory Sales Donor Recruitment Representative Report Patient Name: Linda Garza : 1940 [facility]: [id number] Date of Testin06/11/23 - 07/10/23 Date of [...] Gomez PA-C CV VASCULAR ORDERABLES Final Result [facility] documented in this encounter Visit Diagnoses Diagnosis Syncope, unspecified syncope type documented in this encounter Care Teams Glue Clamp Operator Relationship Specialty Start Date End Date Jose A Lakhani DO [address] [place] [address] PCP - General FAMILY PRACTICE 05/24/23 documented as of this encounter
--- OUTSIDE RECORDS SUMMARY | 2024-06-08 20:47 | XMS_ITS | Encounter Summary ---
Author Organization [facility] Address [address] [place] [address]. [place], [place] [id number] [place] [address] Care Team Providers Care Trade Recruiter Name Role Phone Unavailable Primary Care Provider Unavailabl e Encounter Details Date Type Department Care Team (Late st Contact Info) Description 12/28/[address] [facility] [address] [facility] [place], [place] [id number] Gene Gar MD [address] [place] [id number] Social History Tobacco Use Types Packs/Day Years [...] encounter Visit Diagnoses Diagnosis Pain in joint, lower leg documented in this encounter
--- OUTSIDE RECORDS SUMMARY | 2024-06-08 20:54 | XMS_ITS | Encounter Summary ---
Author Organization [facility] Address [address] [facility] [address] [place] [address] Care Team Providers Care Sword Swallower Name Role Phone Sixto Lund MD Primary Care Provider [phone] Encounter Details Date Type Department Care Team (Late st Contact Info) Description 07/12/2021 Telephone [facility] Cardiology [address] [place] [address] Ravinder Mclean MD [address] [facility] [address] [place] [address] Social History Tobacco Use Types Packs/Day Years Used Date Smoking Tobacco: Never Smokeless Tobacco: Never Alcohol Use Standard Drinks/Week Comments Yes 0 (1 standard drink = 0.6 oz pur e alcohol) PHQ-2 Answer Date Recorded PHQ-2 Score 1 05/28/2019 Comments Unknown Sex and Gender Information Value Date Recorded Sex Assigned at Not on file Legal Sex 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 CARRIER BLOWER Gender Identity Not on file Sexual Orientation Not on file documented as of this encounter Ordered Prescriptions Prescription Sig Dispense Quantity Refills Last Filled Start Date End Date benazepriL (LOTENSIN) 10 mg tabletIndications: Labile hypertension Take 1 tablet (10 mg total) by mouth daily 14 tablet 07/12/2021 07/25/2021 documented in this encounter Miscellaneous Notes * Telephone Encounter - Jessica Oliver MA - 07/12/2021 1:34 PM CST Refills approved and sent to pharmacy as requested. IER BLOWER * Telephone Encounter - Cait Beauchamp - 07/12/2021 1:19 PM CST Pt called states she has not received her Benazepril. States she called [facility] and they stated itis still being shipped. Pt is requesting a small supply of Benazepril 10 mg be sent to [place] [facility]. Contact: IER BLOWER documented in this encounter Plan of Treatment Not on file documented as of this encounter Visit Diagnoses Diagnosis Labile hypertension documented in this encounter Discontinued Medications Medication Sig Discontinue Reason Start Date End Da te benazepriL (LOTENSIN) 10 mg tabletIndications:Labile hypertension Take 1 tablet (10 mg total) by mouth daily Reorder 06/21/2021 07/12/2021 documented as of this encounter Care Teams Sword Swallower Relationship Specialty Start Date End Date Sixto Lund MD PCP - General 09/21/16 05/01/22 documented as of this encounter
--- OUTSIDE RECORDS SUMMARY | 2024-06-08 20:54 | XMS_ITS | Encounter Summary ---
Author Organization [facility] Address [address] [place] [address] Care Team Providers Care Shift Foreman Name Role Phone Sixto Terrazas MD Primary Care Provider [phone] Reason for Visit * Reason Comments Follow-up 7 mo follow up on dy slipidemia, CAD, PAD, HTN, PVC Encounter Details Date Type Department Care Team (Late st Contact Info) Description 12/24/2019 11:15 AM CDT Office Visit [facility] Cardiology [address] [facility] [address] [place] [address] Ravinder Mclean MD [address] [facility] [address] [place] [address] 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 (Primary Dx); Labile hypertension; Statin myopathy; Localized edema; 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 (CMS/HCC); Chronic anticoagulation; Dyslipidemia; PVC (premature ventricular contraction); History of fall; PAD (peripheral artery disease) (CMS/HCC) Social History Tobacco Use Types Packs/Day Years Used Date Smoking Tobacco: Never Smokeless Tobacco: Never Alcohol Use Standard Drinks/Week Comments Yes 0 (1 standard drink = 0.6 oz pur e alcohol) PHQ-2 Answer Date Recorded PHQ-2 Score 1 05/28/2019 Comments Unknown Sex and Gender Information Value Date Recorded Sex Assigned at Not on file 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 Gender Identity Not on file Sexual Orientation Not on file documented as of this encounter Last Filed Vital Signs Vital Sign Reading Time Taken Comments Blood Pressure 132/84 12/24/2019 12:12 PM CDT Pulse 86 12/24/2019 12:12 PM CDT Temperature - - Respiratory Rate - - Oxygen Saturation 97% 12/24/2019 12:12 PM CDT Inhaled Oxygen Concentration - - Weight 68.9 kg (152 lb) 12/24/2019 12:12 PM CDT Height 165.1 cm (5' 5 ) 12/24/2019 12:12 PM CDT Body Mass Index 25.29 12/24/2019 12:12 PM CDT documented in this encounter Ordered Prescriptions Prescription Sig Dispense Quantity Refills Last Filled Start Date End Date rosuvastatin (CRESTOR) 10 mg tabletIndications: Dyslipidemia Take 1 tablet (10 mg total) by mouth daily 30 tablet 11 12/24/2019 01/12/2021 documented in this encounter Progress Notes * Ravinder Mclean MD - 12/24/2019 11:15 AM CDT [facility] DATE OF VISIT: 12/24/2019 CHIEF COMPLAINT Chief Complaint Patient presents with ??? Follow-up 7 mo follow up on dyslipidemia, CAD, PAD, HTN, PVC HPI Linda Garza is a 79 y.o. female with a PMHx of CAD LAD stent, h/o 80% RCA stenosis, HTN, dyslipidemia, chronic recurrent atypical CP, h/o LUE DVT on coumadin, chronic anxiety previously followed in [place]. 07/15/13 she returns today stating she has been experiencing more chest pain symptoms and which nitroglycerin helps. She states she is taking 2-3 nitroglycerin tablets in the past few weeks. Should one episode several weeks ago were symptoms lasted nearly an hour and were quite severe and she considered presented to the emergency department. She did not however in the symptoms eventually resolved.She denies bleeding, recent fevers or chills or cough. Breathing is stable. No edema. She is compliant with her medications. She still notes significant anxiety symptoms for which she takes Xanax. Most recent stress test was unremarkable. Stress test June 09, 2013 fixed defect just of artifact no reversible ischemia EF 80% without wall motion abnormalities. 05/17/15 c/o frequent falls fell 03/14, 04/08, and 05/10, no LOC bruising and 11 stitches in L elbowbut injuries as noted. Was told HR and BP dropping low by EMT 04/08/15 but denies being taken off medications. STates things were fine once in ER. Losing balance leading to falls, referred to PT. Mild ELIZALDE unchanged. Occ CP resolves with NTG maybe 3x/past 3 months. CP occurs at rest and is worse after eating like food getting stuck in throat. Carotid dopplers reported as ok 08/10/15 Under a lot of stress/anxiety, occ CP and SOB, related to anxiety, occ CP resolved with SLNTG. Very frustrated with her and can't handle him. States verbally abusive., husbandwon't bath, sits in underwear, kids don't help. +palps more frequent due to stress. 02/16/16 Describes as evil, hateful man and thinks he wants to hurt her stating he stares ather while he's sleeping. Has dementia and is difficult to deal with. Pt complains he sits in chair all day and expects her to wait on him asking him to do everything when she states he is fully capable of ambulating. Went to ER x1 for SOB and [place]. [place] intermittent, neg CT head. Sees eye doc tomorrow.Occ CP less often. NTGx1 when one CP when L arm started hurting. c/o bruising on L forearm denies known trauma. No other bleeding. +stress/anxiety. c/o myalgias and wants to stop Atorvastatin then stops on her own. Patient perseverates on her unprovoked at each visit having to be redirected. 08/21/16 States not feeling well, too much stress she thinks. HAsn't spoken with Dr. Terrazas about this but has meds to help. Lien PRavastatin due to myalgias with Simva/Atorvastatin. CP occ, occ SOB noprogression. no falls. 02/06/17 STates has been feeling horrible on Pravastatin c/o [place], sweating, nausea, denies significant myalgias or arthralgias. She is adamant she was taking Pravastatin she got from mail order pharmacy but LDL 250 (higher than ever before).Noted upset stomach, burning sensation regardless of meals. Mild dizziness but no near syncope or syncope. C/o feeling poorly slow HR noted in the 40's so sent to [place] ER by Dr. Terrazas EKG done HR 55bpm. Told to reduce Atenolol then still noting bradycardia so stopped 02/02 along with Pravastatin. States not feeling much better after stopping meds yet butHR is higher she notes. [place]'s are less but still present. Sweating still an issue at night only. 05/20/17 States she feels terrible. When asked about this she show me her BP diary running 127/72 HR 92 and was very concerned about her HR denies palps, CP or SOB. Then, said she fell and hurt her left knee carrying in cases of water and lost balance twisting her knee. +edema. Saw Dr. Terrazas. Tearful in the office about being told she was older, weaker than before after her discussion with Dr. Terrazas. She then described her Polio issues and how she kept working. Uses cane for walking. She has been taking 10mg Benazepril and her BP has been good. BP drops too low taking Atenolol so doesn't take it and has been off of it for a couple of months for low BP and HR. Not taking Pravastatin as shedid not tolerate. States she tolerated Atorvastatin in the past at least to maybe 40mg qhs. Palps ok better but had some palps last night. 09/02/17 States she is upset about multiple issues. States she is upset about her blood clot, Dr. Terrazas, Dr. Macdonald calling him an evil M-Chuck . She states she upset being told as she was old and weak by her PCP and how she was treated by one of our nurses. Her swelling has nearly completely resolved seeing Vascular surgery in [place] and is feeling better overall. She is upset about how one of my nurses spoke to her. States when she injured her left leg lifting a case of water the droppedinto her left thigh/upper leg and had pain at that time. States then 2 days later had more pain andswelling so went to see Dr. Terrazas for management. Pt came to see me she states as scheduled and admits she did not make much of an issue of her leg and did not ask me to look at it other than mentioning it in passing. She adds her BP and HR have been better whereas previously her HR was higher. She then recalled her Atenolol was stopped due to HR in the 40's and her Benazapril was increased to 20mg from 10mg daily. She admits she is doing a lot better and has made healthy changes to her diet. She has too much muscle pain on statins and will not try them again. She admits she is just worried as she lives alone and has no one else to care for her. She adds she is getting around well and has no new complaints or limitations. She has no CP except when she eats food that is not soft enough and only occurs with eating. If she pays attention and eats softer foods she does not have her CP while swallowing. She denies SOB unless she really exerts herself but has no new complaint in this regard and has no new limitations in this regard. No dizziness, falls, orthopnea or PND. States she is tolerating her medications well. By the end of the interview she states she knows I want the best for her and appreciates my care and that is why she followed me from [place] and still chooses to see me and still believes that. Later, she added she takes Spironolactone-HCTZ kind of every other day. BP has been under control. Intolerant to statins and will not try again due to severe myalgias. 11/04/17 States 5 days ago fell after stepping on her cane then lost her balance and fell into a door frame with laceration on her head with stitches. c/o soreness in R hip and into leg. No dizziness or near syncope associated. Was told she could take NSAID but pt not comfortable due to bleeding risk. On ABx due to infected skin break after fall R forearm. HAd UTI recently as well with hematuria which has resolved. No dizziness, CP or SOB. NOtes more swelling in her R leg as well with compression stocking but no pain. Going to see Vascular surgeon in [place] very soon and having vascular studies at that time. Notes pain in R leg from her hip to lower leg including knee as she fell on that leg. USing cane to get around. HAving some palpitations but admits she is feeling overwhelmed as she did not want to fall lately. 02/17/18 Doing ok but had couple spells where she was all of a sudden very shaky, anxious, with CP went to ER in November/December, work up negative felt sxs related to psychosocial stressors. Admits she has been under significant stress Still seeing vascular in [place], wrapping legs, gets occ swelling. Still has knee pain gets cortisone shots not helping. Taking Ibuprofen 600mg as it helps a lot with her knee pain, Tylenol dulls it some days the pain makes her cry. No significant CP but every oncein a while, better overall. Occ palps in the middle of the night and feels SOB where this may happen 1-3x/week then sits up, tells herself to calm down and she is ok lasting a few minutes maybe. Fell3-4 months ago and landed on her R ankle now has more swelling especially in her foot. Wearing compression stockings. 05/12/18 CAT visit: Here for routine follow-up. She is tolerating Crestor. FLP 04/22/18 shows TC 226, TG 150, LDL 149, HDL 47, LDL is an improvement from 291. She reports that she is not having much palpitations lately. She returns to the vascular surgeon tomorrow to follow-up on her DVT. Her chiefcomplaint today is having a soaking sweat in her chest and neck at night and she is concerned that this indicates a heart problem. She denies chest pain and no other accompanying symptoms with these night sweats. 08/07/18 Getting leg wraps every 2-3 months which really helps, wears compression stocking and edemadoing well. Blood clots have resolved but vascular physician and PCP decided to continue warfarin indefinitely and did not want to change to Xarelto or Eliquis. NOted significant cramps and wonders if related to low K+ as occurs at night in her feet. No cramps elsewhere. But notes only occ nagging R side cramping improved with heating pad or getting up and around so she tolerates Crestor 20mg well and states she is good with it. NOtes lower HR last week HR 62, 64 but back up to the 70's. Deniesany CP or SOB. Notes wakes up sweating in her head/neck no where else and is concerned about it related to her heart. She does not want to increase Rosuvastatin. 10/07/18 States not feeling well but primary complaint is foot pain c/o R side pain. States has a lot of anxiety at times takes Xanax 1mg to help sleep which does help. Last Ivon noticed tendernessR hand near thumb with bruising. Notes she was helping to pick [employer] yard wast then after she showered she noticed it was black. Not sure about but doubts trauma to hand. Notes occ palps/fluttering up to an hour, rested. No falls. No fevers, states feels like gets chills sometimes more often between 5-6 pm now for a month she states. Taking Keflex 250mg daily for suppression of recurrent UTI. Denies dysuria. Told by PCP to hold statin for her back pain but she didn't stop it or think it was related. Doing well without CP though. Concerned about Na 146 (upper limits normal 145). Says her R hand is improving. 02/10/19 Was having more swelling in L leg so vascular surgeon she states placed L iliac artery stent last week. C/o soreness in groin with bruising. Swelling in L leg has improved, less pain, she wasnot clear on claudication but c/o pain in R leg. Sees Vascular next week for U/S. NOtes pain in L thorax/side with pain under L arm radiating to around the left back, no CP. States had same pain in th e past then resolved but has now returned for 2-3 weeks. Denies cough, more SOB, thinks it is swelling. No falls, trauma, recent illnesses. NOtes leaning on left side makes it worse, no exacerbation with deep breathing, coughing. She would like an Xray. Denies any CP or new SOB otherwise. 05/28/19 CAT visit: She rescheduled last month's OV w/ Dr. Mclean due to bad weather. Since her last OV here, she had problems with recurrent UTIs, so PCP did CT scan abd/pelvis which found that the new left iliac stent was barely patent. She is upset about this. She plans to call the vascular surgeon to have follow-up. She stopped her Crestor about 2 months ago, thinks she was having some side effects with it but can't really specify. Her right thigh swells a little bit throughout the day and she is very concerned about developing lymphedema. Her weight may go to up 2 lb or a little more over the course of a day. When she gets upset about something she sometimes feels chest pain and or palpitations. 1 month ago she stumbled, lost footing, fell and sprained right wrist, did not hit head, did not lose consciousness. 12/24/19 States having issues ever since stent place 01/2019, having stomach issues, PCP noted thickening of bladder but it was noted her stent was blocked on imaging. Saw Dr. Pedro Uribe but not planning on intervention. Pt having more R leg edema whereas typically was on L. She was not happy she states. Vascular called to set up CT abd on November 24 called on December 21 notified that flow is fine on R and edema could be lymphedema but not given diagnosis. Still having firm lower abd pain, bloating, and R back pain driving with ice pack on back due to severe back pain, stabbing when thinks related to walking but goes around to the front lower abdomen. Going to therapy for possible lymphedema. In am she states her whole body is perfect but later in day L side under arm/ swells and is uncomfortable.she feels like she weighs more, clothes don't fit right, but weight stable and less on our scale. She doesn't eat sometimes. Fell 2 week ago has bruising of R ankle and calf with mild edema reaching for her phone and slid right off bed and hit corner of nightstand, bruised L upper arm and weigh of body on L ankle c/o fullness and soreness under L arm. She has apparently undergone repeat CT scans of her groin, abdomen with most recently being told her left lower extremity stent is patentand there are no other pathology identified. Urology has been involved in her case as well. MEDICAL HISTORY Past Medical History: Diagnosis Date ??? Cardiovascular disease Coronary Artery Disease ??? HX OTHER MEDICAL Chronic Anxiety ??? HX OTHER MEDICAL DVT: LUE ??? Hypertension Hypertension ??? Hypothyroidism Hypothyroidism Social History Tobacco Use ??? Smoking status: Never Smoker ??? Smokeless tobacco: Never Used Substance Use Topics ??? Alcohol use: Yes ??? Drug use: Never Family History Problem Relation Age of Onset ??? No Known Problems Mother ??? No Known Problems Father MEDICATIONS HOME MEDICATIONS : ALPRAZolam (XANAX) 1 mg tablet aspirin 81 mg tablet escitalopram (LEXAPRO) 5 mg tablet hydroCHLOROthiazide (HYDRODIURIL) 25 mg tablet nitroglycerin (NITROSTAT) 0.4 mg SL tablet warfarin (COUMADIN) 3 mg tablet benazepril (LOTENSIN) 10 mg tablet benazepriL (LOTENSIN) 10 mg tablet rosuvastatin (CRESTOR) 10 mg tablet cephalexin (KEFLEX) 250 mg capsule clopidogrel (PLAVIX) 75 mg tablet rosuvastatin (CRESTOR) 10 mg tablet ALLERGIES Allergies Allergen Reactions ??? Zpdxiae-Bfg-Hku Reductase Inhibitors Muscle pain ??? Prednisone ??? Propoxyphene-Acetaminophen REVIEW OF SYSTEMS Review of Systems Constitution: Positive for malaise/fatigue and weight gain. Negative for decreased appetite, diaphoresis, fever, night sweats and weight loss. HENT: Negative for hearing loss and nosebleeds. Eyes: Negative for blurred vision and pain. Cardiovascular: Positive for leg swelling. Negative for chest pain, claudication, dyspnea on exertion, irregular heartbeat, near-syncope, orthopnea, palpitations and syncope. Respiratory: Negative for cough, hemoptysis, shortness of breath, snoring and wheezing. Endocrine: Negative for cold intolerance and heat intolerance. Hematologic/Lymphatic: Negative for bleeding problem. Does not bruise/bleed easily. Skin: Negative for color change, itching, rash and suspicious lesions. Musculoskeletal: Positive for arthritis, back pain and joint pain. Negative for falls, muscle weakness and myalgias. Gastrointestinal: Negative for abdominal pain, heartburn, hematemesis, melena and nausea. Genitourinary: Negative for dysuria, hematuria and nocturia. Neurological: Negative for excessive daytime sleepiness, dizziness, focal weakness, headaches, light-headedness, loss of balance and weakness. Psychiatric/Behavioral: Negative for altered mental status, depression and memory loss. The patientis nervous/anxious. Allergic/Immunologic: Negative for environmental allergies. PHYSICAL EXAM Vitals BP 132/84 (BP Location: Left arm, Patient Position: Sitting) Pulse 86 Ht 165.1 cm (5' 5 ) Wt 68.9 kg (152 lb) SpO2 97% BMI 25.29 kg/m?? Weight: 68.9 kg (152 lb) Height: 165.1 cm (5' 5 ) Body mass index is 25.29 kg/m??. Physical Exam Constitutional: She is oriented to person, place, and time. She appears well- developed and well-nourished. She is cooperative. No distress. HENT: Head: Normocephalic and atraumatic. Right Ear: External ear normal. Left Ear: External ear normal. Nose: Nose normal. Mouth/Throat: Oropharynx is clear and moist and mucous membranes are normal. Normal dentition. Eyes: Conjunctivae, EOM and lids are normal. No scleral icterus. Neck: Normal range of motion. Neck supple. Normal carotid pulses, no hepatojugular reflux and no JVD present. Carotid bruit is not present. No tracheal deviation present. No thyromegaly present. Cardiovascular: Normal rate, regular rhythm, S1 normal, S2 normal, normal heart sounds, intact distal pulses and normal pulses. Exam reveals no gallop, no S3, no S4, no distant heart sounds and no friction rub. No murmur heard. Pulmonary/Chest: Effort normal and breath sounds normal. No respiratory distress. She has no wheezes. She has no rales. She exhibits no tenderness. No abnormalities, masses on visual inspection L lateral upper back, focal tenderness to upper posterior 4-5th rib, no swelling noted, no warmth, erythema. Abdominal: Soft. Bowel sounds are normal. She exhibits no distension and no mass. There is no abdominal tenderness. There is no rebound and no guarding. Musculoskeletal: Normal range of motion. General: Edema present. No tenderness or deformity. Comments: trace bilateral LE edema LLE with compression stocking to just below knee, Lymphadenopathy: She has no cervical adenopathy. Neurological: She is alert and oriented to person, place, and time. No cranial nerve deficit. She exhibits normal muscle tone. Coordination normal. Skin: Skin is warm and dry. No ecchymosis, no petechiae and no rash noted. She is not diaphoretic. No cyanosis or erythema. No pallor. Nails show no clubbing. Superficial bruising/ecchymosis R thenar region of R hand Psychiatric: She has a normal mood and affect. Her speech is normal and behavior is normal. Judgment normal. LABS AND OTHER DIAGNOSTIC TESTS No visits with results within 3 Month(s) from this visit. Latest known visit with results is: Office Visit on 02/10/2019 Component Date Value Ref Range Status ??? Cholesterol, POC 02/10/2019 196 mg/dL Final ??? HDL, POC 02/10/2019 39 mg/dL Final ??? Triglycerides, POC 02/10/2019 185 mg/dL Final ??? LDL, Direct, POC 02/10/2019 120 mg/dL Final ??? Chol/HDL Ratio, POC 02/10/2019 5.0 Final ??? Non-HDL Cholesterol, POC 02/10/2019 157 mg/dL Final ??? Cholesterol Total, POC 02/10/2019 196 mg/dL Final Results for orders placed or performed in visit on 02/10/19 POCT lipid panel Result Value Ref Range Cholesterol, POC 196 mg/dL HDL, POC 39 mg/dL Triglycerides, POC 185 mg/dL LDL, Direct, POC 120 mg/dL Chol/HDL Ratio, POC 5.0 Non-HDL Cholesterol, POC 157 mg/dL Cholesterol Total, POC 196 mg/dL 08/18/18 Lexiscan Stress test: Conclusions: Global left ventricular function is normal. Left ventricular ejection fraction is 69 %. Myocardial perfusion imaging is normal. Negative EKG portion of stress test. Personally reviewed EKG, Echocardiogram, heart monitor 02/2017 occ PVC's, underlying SR, and bloodwork/lipids. ASSESSMENT Diagnoses and all orders for this visit: 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 (Primary) Labile hypertension Statin myopathy Localized edema 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 ([facility]/HCC) Chronic anticoagulation Dyslipidemia - rosuvastatin (CRESTOR) 10 mg tablet; Take 1 tablet (10 mg total) by mouth daily PVC (premature ventricular contraction) History of fall PAD (peripheral artery disease) ([facility]) PLAN/RECOMMENDATIONS 1. No clear anginal symptoms. She is to notify the office immediately with any new or concerning symptoms and if severe or unrelenting present to the nearest ER via EMS. Aggressive CAD risk modification counseling performed. Continue current medical therapy. Notify office immediately with anginal symptoms. -Stress test negative EF 69% 08/18/18 2. Lipids personally reviewed LDL 120 02/10/19, not ideally controlled. -she would like to resume statin therapy and observe tolerance. Check fasting lipid profile in 2 months. Call with any new symptoms or concerns. Will resume rosuvastatin 10 mg at bedtime. 3. Monitor for bleeding very closely. If falls/injury with bleeding or head injury go to ER immediately. 4. BP reasonably controlled, improved on repeat check. Continue Benazepril 10mg daily, states 20mg drops BP too much. Call with readings or any other concerns immediately including uncontrolled BP orworsening edema. Continue consistent cardiovascular exercise, weight loss, medication compliance, and low-sodium diet. 5. Remains off BB given symptomatic bradycardia and hypotension. Given increase in palps and stableHR discussed resuming very low dose of BB if sxs persist. Contact office for further recommendations based upon her sxs. 6. Cont to follow up with vascular as scheduled. 7. Twelve lead EKG today sinus rhythm otherwise normal 75 beats per minute NV interval 160 milliseconds QRS 96 milliseconds QT corrected 438 milliseconds 8. PCP managing INR. Monitor for bleeding. Defer to PCP. 9. She will follow with vascular surgery and her PCP if she desires further referral with regards to mention of lymphedema. Discussed diagnostic testing which may performed/ordered, however, she did not wish to pursue nor did she desire for me to order any additional testing in this regard at this time. Over 50% of this visit counseling edema, CAD, HTN, lipids, medications, lifestyle modification. 42 minutes spent with the patient in the office today. Follow up in the office in 3 months or sooner as needed. Thank you for allowing me the privilege of participating in the care this very pleasant patient. Please do not hesitate to contact me with any additional questions or concerns. Sonia Mclean MD, [facility] documented in this encounter Miscellaneous Notes * Addendum Note - Karla Dhaliwal MA - 12/24/2019 11:15 AM CDTAddended by: KARLA DHALIWAL on: 12/29/2019 05:46 PM Modules accepted: Orders documented in this encounter Plan of Treatment Not on file documented as of this encounter Procedures Procedure Name Priority Date/Time Associated Diagnosis Comments ECG 12-LEAD Routine 12/24/2019 PVC (premature ventricular contraction) documented in this encounter Results * ECG 12 lead (12/24/2019) Ravinder Mclean MD ECG ORDERABLES Final Re sult documented in this encounter Visit Diagnoses Diagnosis 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- Primary Labile hypertension Statin myopathy Toxic myopathy Localized edema Edema 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 (HCC) Chronic anticoagulation Encounter for long-term (current) use of anticoagulants Dyslipidemia Other and unspecified hyperlipidemia PVC (premature ventricular contraction) Other premature beats History of fall Personal history of fall PAD (peripheral artery disease) (HCC) Unspecified peripheral vascular disease documented in this encounter Discontinued Medications Medication Sig Discontinue Reason Start Date End Da te clopidogrel (PLAVIX) 75 mg tablet Take 75 mg by mouth daily Therapy completed 12/24/2019 cephalexin (KEFLEX) 250 mg capsule Take 250 mg by mouth daily. Therapy completed 03/27/2018 12/24/2019 rosuvastatin (CRESTOR) 10 mg tabletIndications:Dyslip idemia Take 1 tablet (10 mg total) by mouth daily Reorder 05/28/2019 12/24/2019 documented as of this encounter Care Teams Shift Foreman Relationship Specialty Start Date End Date Sixto Terrazas MD PCP - General 09/21/16 05/01/22 documented as of this encounter
--- OUTSIDE RECORDS SUMMARY | 2024-06-08 20:54 | XMS_ITS | Encounter Summary ---
Author Organization [facility] Address [address] [place] [address] Care Team Providers Care Hand Ii Blocker Name Role Phone Sixto Lund MD Primary Care Provider [phone] Encounter Details Date Type Department Care Team (Late st Contact Info) Description 08/15/2021 Telephone [facility] Cardiology [address] [place] [id number] Ravinder Mclean MD [address] [facility] [facility] [address] [place] [address] Social History Tobacco Use Types Packs/Day Years Used Date Smoking Tobacco: Never Smokeless Tobacco: Never Alcohol Use Standard Drinks/Week Comments Yes 0 (1 standard drink = 0.6 oz pur e alcohol) PHQ-2 Answer Date Recorded PHQ-2 Score 1 05/28/2019 Comments Unknown Sex and Gender Information Value Date Recorded Sex Assigned at Not on file Legal Sex 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 HATCHERY MANAGER Gender Identity Not on file Sexual Orientation Not on file documented as of this encounter Miscellaneous Notes * Telephone Encounter - Aleah Mccann RN - 08/15/2021 2:00 PM HATCHERY MANAGER Spoke with pt, reviewed result note from AD-pt verbalized understanding. HERY MANAGER * Telephone Encounter - Cait Beauchamp - 08/15/2021 12:14 PM CST Pt requesting call back to discuss echo results from 2/7. Contact: HERY MANAGER documented in this encounter Plan of Treatment Not on file documented as of this encounter Visit Diagnoses Not on filedocumented in this encounter Care Teams Hand Ii Blocker Relationship Specialty Start Date End Date Sixto Lund MD PCP - General 09/21/16 05/01/22 documented as of this encounter
--- OUTSIDE RECORDS SUMMARY | 2024-06-08 20:54 | XMS_ITS | Encounter Summary ---
Author Organization [facility] Address [address] [place] [id number] Care Team Providers Care Passenger Screener Name Role Phone Sixto Lund MD Primary Care Provider [phone] Reason for Visit * Cardiology (Routine) - Closed Specialty Diagnoses / Procedures Referred By Stacie t Referred To Contact Diagnoses Palpitations Procedures Event Monitor, 30 Day Event Codie Mathew NP [address] [address] Phone: tel: fax: Referral ID Status Reason Start Date Expiration Date Visits Re quested Visits Authorized [id number] Closed 07/12/2020 08/11/2021 1 1 Encounter Details Date Type Department Care Team (Late st Contact Info) Description 07/12/2020 10:30 AM AUTOMATIC DRILL OPERATOR Ancillary Procedure [facility] Cardiology [address] [phone] Palpitations Social History Tobacco Use Types Packs/Day Years Used Date Smoking Tobacco: Never Smokeless Tobacco: Never Alcohol Use Standard Drinks/Week Comments Yes 0 (1 standard drink = 0.6 oz pur e alcohol) PHQ-2 Answer Date Recorded PHQ-2 Score 1 05/28/2019 Comments Unknown Sex and Gender Information Value Date Recorded Sex Assigned at Not on file Legal Sex 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 AUTOMATIC DRILL OPERATOR Gender Identity Not on file Sexual Orientation Not on file documented as of this encounter Procedure Notes * Ravinder Mclean MD - 07/12/2020 12:00 AM CST 30 DAY GAS BOOSTER ENGINEER Ordering Physician Ravinder Mclean MD Indication Palpitations. Enrollment Period July 12 to August 10, 2020. Interpretation This is a 30 day reference services head in which underlying rhythm was sinus with an average heart rate of 79 beats per minute, minimum of 53 beats per minute and a maximum 164 beats per minute occurring on July 16 at 2:18 p.m. There was 1 patient symptom diary entry returned in conjunction with this study on July 16 11:19 a.m. The patient complained of shortness of breath associated with sinus rhythm, heart rate 89 beats per minute without ectopy during light activity. There were rare premature ventricular contractions totalling 6489, which is less than 1% burden and rare premature atrial contractions totaling 4308, which is less than 1% burden. No atrial fibrillation or atrial flutter. No prolonged pauses or high-grade high-grade AV blocks identified. There were occasional atrial runs as brief as 3 beats with the longest occurring at 28 beats consistent with an atrial tachycardiaversus AVNRT. July 16 2:18 p.m. had a heart rate of 164 beats per minute. No symptoms were noted in conjunction with this event. DE and QRS duration were within normal limits throughout the study. Conclusions Underlying sinus rhythm with brief atrial runs, rare PACs with one 28 beat run of SVT in which no symptoms were returned. Clinical correlation advised. Job ID/VF Job ID: [id number] MATIC DRILL OPERATOR documented in this encounter Plan of Treatment Pending Results Name Type Priority Associated Diagnoses Date /Time Event Monitor, 30 Day Event Cardiac Services Routine Palpitations 07/12/2020 10:30 AM AUTOMATIC DRILL OPERATOR documented as of this encounter Visit Diagnoses Diagnosis Palpitations documented in this encounter Care Teams Passenger Screener Relationship Specialty Start Date End Date Sixto Lund MD PCP - General 09/21/16 05/01/22 documented as of this encounter
--- OUTSIDE RECORDS SUMMARY | 2024-06-08 20:54 | XMS_ITS | Encounter Summary ---
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 Name Role Phone Jose A Lakhani DO Primary Care Provider Reason for Visit * Reason Comments Hospital Follow Up Encounter Details Date Type Department Care Team (Late st Contact Info) Description 06/13/2023 10:00 AM SCHOOL 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 Office Visit [facility] Cardiology [address] [place] [address] Codie Mathew NP [address] [place] [address] Chronic anticoagulation; 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 (HCC); Syncope and collapse; Coronary artery disease involving tunica-biloxi coronary artery of tunica-biloxi heart without angina pectoris; Edema, lower extremity; Labile hypertension Social History Tobacco Use Types Packs/Day Years Used Date Smoking Tobacco: Never Smokeless Tobacco: Never Tobacco Cessation:Counseling Given: Not Answered Alcohol Use Standard Drinks/Week Comments Yes 0 (1 standard drink = 0.6 oz pur e alcohol) PHQ-2 Answer Date Recorded PHQ-2 Score 1 05/28/2019 Comments Unknown Sex and Gender Information Value Date Recorded Sex Assigned at Not on file Legal Sex 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 SCHOOL 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 Gender Identity Not on file Sexual Orientation Not on file documented as of this encounter Last Filed Vital Signs Vital Sign Reading Time Taken Comments Blood Pressure 130/60 06/13/2023 10:19 AM SCHOOL 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 Pulse 97 06/13/2023 10:19 AM SCHOOL 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 Temperature - - Respiratory Rate - - Oxygen Saturation 97% 06/13/2023 10:19 AM SCHOOL 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 Inhaled Oxygen Concentration - - Weight 67.6 kg (149 lb) 06/13/2023 10:19 AM SCHOOL 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 Height 165.1 cm (5' 5 ) 06/13/2023 10:19 AM SCHOOL 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 Body Mass Index 24.79 06/13/2023 10:19 AM SCHOOL 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 documented in this encounter Progress Notes * Codie Mathew NP - 06/13/2023 10:00 AM CST [facility] Cardiology [address] [place] [address] Date of Visit: 06/13/2023 Patient ID: Linda Garza 1940 Chief Complaint Patient presents with Hospital Follow Up Linda Garza is a 82 y.o. female who is an established patient of Dr. Mclean with a history of CAD coming to the office for hospital follow-up. History of Present Illness: Linda Garza is a 82 y.o. femalewith a PMHx of CAD LAD stent, h/o 80% RCA stenosis, HTN, dyslipidemia, chronic recurrent atypical CP, h/o LUE DVT on coumadin, chronic anxiety previously followed in [place]. 07/15/13 she returns today stating she has [...] noted in the 40's so sent to [place] ER by Dr. Terrazas EKG done HR [...] nearly completely resolved seeing Vascular surgery in [place] and is feeling better overall. She is [...] that is why she followed me from [place] and still chooses to see me and [...] pain. Going to see Vascular surgeon in [place] very soon and having vascular studies at [...] under significant stress Still seeing vascular in [place], wrapping legs, gets occ swelling. Still has [...] to help sleep which does help. Last Saturday noticed tendernessR hand near thumb with bruising. [...] been involved in her case as well. 04/06/20 LAst week or so noting HR occ in 50's then up to 60-70's feels fine but scares her she states when in the 50's but no sxs, feels fine. Notes having night sweats again but she is not sure if she feels hot or cold and concerns her. It had resolves for a long time and now had 2x again. Then she wakes and takes cover off and realizes she is soaking wet . Had 2 spells of L upper chest goes to back non exertional. No sxs like this during day or activity. No diaphoresis with activity. She says she is taking statin but then later admits she stopped it but then went back on it past 2 months. Never misses diuretic. 06/07/20 CAT visit- today she reports not feeling well. She feels like she swells as the day goes on, particularly in her belly. When she wakes in the morning the swelling is gone. Occasionally she has PND she estimates 3-4 times in the last 2 months. She denies orthopnea and states she sleeps on her stomach. She has noticed recently dyspnea with activity such as making her bed. She thinks her palpitations have increased over the last month and wonders if it is anxiety. She is not sure why she has gained weight, she has not made any diet changes. She feels like she ???gets all worked up?? thinking about her symptoms and her health problems. At this visit, I changed HCTZ to furosemide. 07/12/20 CAT visit- she today she reports she is still not feeling well. She has days that she feelsvery anxious about her health. She has had dizziness for the past couple of weeks, gained some weight in feels more swelling in the lower extremities. She had 3 days of palpitations last week and a couple days of palpitations the week 4. Home BP cuff indicates irregular heartbeat in the 90s. Shortly after I saw her last month, she hit her leg on the car door, went to PCP to have wound treated, and he also gave her a course of prednisone for inflamed hip joint which helped. At this visit a new echo was ordered and a 30 day event monitor was placed. 08/23/20 CAT visit- I'm feeling pretty good. She reports taking the furosemide on a daily basis and has lost a small amount of weight but the left lower extremity edema has significantly improved. Recent home BP readings have ranged 113/60 to 140/70, but she has not been checking as regularly because she was getting anxious about alert regarding irregular heartbeat. Appointment with vascular surgeon is next week. She has been trying to get an appointment for a COVID vaccine but no luck so far. 11/02/20 states 10/16/20 had fallen carrying object went too fast says she was carelessness and all her fault his side of face, injuring her L arm with bruising and L hip sore trouble standing, went toER on Mother's day, was shaking felt cold, a lot of tests, said heart rate up and down. Was gettingbetter given ear drops and Amoxicillin by PCP office but states was hard to get words out, trouble getting up, weak, trouble writing. Had Echo mod MR, EF normal mod MR. Notes gets tired sleepy every day around 11Am then passes and she is fine. Since she fell writing down HR 65, 67. Notes BP lower at times. Had severe CP across chest aching, hurting and back shoulders took SLNTG x3 eventually resolved after 15 minutes. 112/64 HR 100bpm at 930 pm 112/70 HR 77 so she called the ER to speak with nurse and told was ok and anxious. So she took anxiety med and went to bed. This AM sharp CP returned took SLNTG x1 and resolved. 116/65HR 77 this AM at 0700. She admits she is overwhelmed worried about her HR. Worried about her Echo with mod Denies dizziness, no near syncope or syncope. CT head no bleeding. Told may have mild pneumonia so started on ABx from ER and Dexamethasone but she is not sure why maybe pain she says. Given Mg infusion as it was low. She takes Mag at home for cramps. She drinking more gatorade and wateras she feels may be more dehydrated. 01/02/21 States 1 month ago noted painful swelling on L foot she woke up suddenly and can hardly touch it, no change, has not improved. Notes bruising on top of L foot. Denies trauma, injury to L footshe does not know her INR but says they are ok. She says her anxiety going to store can't breathe and heart races. No other bleeding. She admits she has a lot of anxiety takes Alprazolam twice daily. Denies falls. Has CP ok nervous not sure if her heart or just anxiety. Still seeing vascular in [place] told still needs wrap therapy but she does not like that doctor. She did not call her PCP re her bruising and foot pain. Did not do INR last month, last time was October because hard for her to get around so it upset her so she just stays home. Lien meds daily. However, then later she admits shedid ru into wall with L should but denies trauma to foot. Describing her UTI and Tx with ABx, anxiety issues, pain issues her reluctance to contact her PCP or Vascular doctor. 03/13/21 CAT visit- she is here for two-month follow-up. [place] that she tested positive for COVID despite being vaccinated. Symptoms were mild and included a cough, night sweats, PCP gave her a course of prednisone. Today she has her last home health PT visit to help her regain strength from the UTI illness. Yesterday her heart ratewas elevated 94-103 bpm at rest throughout the majority of the day and into the night. She felt palpitations. She has not had any chest pain and has not used any nitroglycerin. She is taking the rosuvastatin daily. She reports recent INRs have been okay. Blood pressures have been fine. 03/20/21 CAT tele visit- she started the metoprolol 4 days ago but she has been hesitant to take it if her heart rate has been below 80. She feels most comfortable when her heart rate is in the 70s. She remembers the problem she had with bradycardia on atenolol and the need to go to the ER and wantsto avoid this happening again. She is checking her blood pressure and pulse multiple times per day.Blood pressures have been 120s over 60s, pulse has ranged 77-94 bpm. On Saturday she felt palpitations denies chest pain or shortness of breath. In general she states the weekends her ???not good days for me?? and it has been that way for years, she seems to feel more anxious and notices a more elevated resting heart rate on the weekends. Today she has checked her pulse 3 times and it has been in the 70s, therefore she has not taken the metoprolol today 06/21/21 Notes had COVID in January. Pt concerned about taking Metoprolol if HR <80 so was holding if HR too slow, not taking. Notes BP very high on lower dose Benazapril <200mmHg so returned to10mg tablet and BP better. HR in the 50's-60's occ 70's. She is checking HR and BP multiple times daily and when asked why she is taking so often did not admit to feeling bad just wanting to check. BP last night 160/102mmHg HR 72bpm while lying on couch. Then checked again at 11pm 139/89mmHg 73bpm.BP generally on diary review 120's -140's avg 130's occ higher more often elevated in evening. No CP, breathing is fine, no sig palps, no falls or bleeding syncope. Swelling was worse better with wrap therapy marked improvement now. Taking LAsix 20mg periodically, took it yesterday maybe 2- 3x/week on average. 10/06/21 Had bad UTI in Feb really weak still getting better using walker, has home PT. Has had falls superficial injuries. Rare CP but last week took 2 SLNTG thinks got herself panicky for CP and resolved but not generally experiencing. Breathing ok, no sig palps. O2 fine. in Jun 2021. 02/09/22 Notes yesterday took a shower then heart was pounding, head throbbing took BP and HR was 98then calmed down and felt ok. Had UTI 01/22/22 resolved but thinks it is back again, previously took Levothyroxine but had pneumonia shot and since then felt HR pounding highest HR 105bpm. Took half Metoprolol and helped it, back to normal. She is nervous again, admits she is very obsessed and concerned about swelling in her legs. Saw PCPweight up now from that weight and from previous visit. 155lb at home last week. Denies SOB. She admits she will go days without drinking or eating to limit her swelling. She reports periods of feeling very cold, freezing and no air on at home almost shivering now for past 2 years getting worse hasnot mentioned to PCP. Also notes PCP prescribed Linzess due to bowel issues but then she did not start. 04/23/22 CAT visit- she is here for two-month follow-up but has multiple complaints. She is unable to tell me what is bothering her the most. Her legs and feet hurt, she has tingling and burning at night but this goes away when she gets up in the morning. She does have a history of percutaneous intervention on the lower extremity by vascular surgeon in [place] in 2018. She has swelling in thelegs. She reports she is sleeping a lot at night she gets sweaty. She denies any falls. She did have quite a bit of bruising but this is now gone. She is on cephalexin daily for UTI prophylaxis. She had her TSH checked which she was told was okay but she did not have the CBC or BMP from Dr. Mclean. Palpitations do not occur very often, maybe once every couple of months. Her best friend March 27 of this month and she is grieving that loss. She wonders if she has lymphedema. 09/28/22 still grieving loss of her and her best friend. Doing ok but does not have anyone tohelp her with things. In waiting room felt nauseous passed no other assoc sxs. Feeling anxious or depressed, clammy wet feeling at times. Occ CP took SLNTG several weeks ago x1 helped but was very stressed she says. No syncope or falls. No bleeding. PCP changed to Lotensin recently but she thinks makes her feel sick, feel more dizzy she is not happy with HCTZ component and is still taking Lasix. Denied changes in her PB or more edema prior to med change. Wraps her legs on her own and edema is doing well. She was told to stop ASA she thinks due to bruising but she is not happy about that so restarted it. Had UTI last week. 02/01/23 CAT visit- she is here for routine follow-up after having to be rescheduled from Dr. Mclean schedule. Since her last office visit she has used SLNTG on 2 occasions, both seem to be related to chest pain from emotional experience. She is using furosemide about 3 times per week. She asked myopinion on lymphedema and if it would be beneficial to see a vascular surgeon. 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 05/15/23 she changed PCP. She is doing ok, cortisone injections help her pain so much. Had a UTI again, recurrent managed by PCP. She had fallen onto her walker went to ER imaging done no fractures, soreness but healed now fine. No syncope. At one point she was sleeping a lot no energy depressed now improved. Had COVID 2 weeks ago. 06/13/23 HFU w/ CAT- now seeing Dr. Lakhani instead of Dr. Terrazas for PCP. She states Dr. Terrazas was not checking INR's. On 05/27/23 she had a skin tear on her left leg that was bleeding and could not get it to stop so she went to [facility]. She had an INR of 11.1, potassium 2.8, she was admitted. During the admission she was sitting in a chair and was overcome by a feeling like she was going to have a panic attack and then she passed out. She was transferred to [facility] for evaluation of the syncope. The patient had a TTE which was normal, EKG was sinus, orthostatics were negative, and telemetry did not show any events. 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 She is currently wearing the monitor. She was also change from warfarin to Eliquis and PCP helped her apply for patient assistance. Records that I personally reviewed on the day of this visit include: (the interpretation is outlined in the HPI above) 05/27/2023 [facility] discharge summary I have also reviewed: allergies, current medications, past family history, past medical history, past social history, past surgical history and problem list Medical History: Past Medical History: Diagnosis Date Cardiovascular disease Coronary Artery Disease HX OTHER MEDICAL Chronic Anxiety HX OTHER MEDICAL DVT: LUE Hypertension Hypertension Hypothyroidism Hypothyroidism Past Surgical History: Procedure Laterality Date OTHER SURGICAL HISTORY Coronary Stent Placement LAD stent Social History Tobacco Use Smoking Status Never Smokeless Tobacco Never Social History Tobacco Use Smoking status: Never Smokeless tobacco: Never Substance and Sexual Activity Drug use: Never Sexual activity: None Alcohol Use: Not on file Family History Problem Relation Age of Onset No Known Problems Mother No Known Problems Father Review of Systems Constitutional: Negative for malaise/fatigue, weight gain and weight loss. Cardiovascular: Negative for chest pain, claudication, dyspnea on exertion, leg swelling, near-syncope, orthopnea, palpitations, paroxysmal nocturnal dyspnea and syncope. Respiratory: Negative for cough, shortness of breath and sleep disturbances due to breathing. Hematologic/Lymphatic: Negative for bleeding problem. Does not bruise/bleed easily. Neurological: Negative for dizziness and light-headedness. Psychiatric/Behavioral: The patient is nervous/anxious. Vital Signs: BP 130/60 (BP Location: Left arm, Patient Position: Sitting) Pulse 97 Ht 165.1 cm (5' 5 ) Wt 67.6 kg (149 lb) SpO2 97% BMI 24.79 kg/m?? Physical Exam Constitutional: General: She is not in acute distress. Appearance: She is well-developed. HENT: Head: Normocephalic and atraumatic. Eyes: General: No scleral icterus. Conjunctiva/sclera: Conjunctivae normal. Neck: Vascular: No JVD. Trachea: No tracheal deviation. Cardiovascular: Rate and Rhythm: Normal rate and regular rhythm. Heart sounds: Murmur heard. Systolic murmur is present with a grade of 2/6. Pulmonary: Effort: Pulmonary effort is normal. No respiratory distress. Breath sounds: Normal breath sounds. Musculoskeletal: Right lower leg: Edema (mild) present. Left lower leg: Edema (2+ edema in left foot extending up to mid calfextending 3 above ankle) present. Skin: General: Skin is warm and dry. Neurological: Mental Status: She is alert and oriented to person, place, and time. Psychiatric: Mood and Affect: Mood normal. Behavior: Behavior normal. Allergies Allergen Reactions Whvvubw-Och-Skw Reductase Inhibitors Muscle pain Prednisone Propoxyphene-Acetaminophen Current Outpatient Medications: ALPRAZolam (XANAX) 1 mg tablet, take 1 tablet by oral route every day as needed, Disp: 0, Rfl: 0 amitriptyline (ELAVIL) 25 mg tablet, Take 1 tablet (25 mg total) by mouth nightly at bedtime., Disp: , Rfl: aspirin 81 mg tablet, Take 1 tablet (81 mg total) by mouth daily, Disp: , Rfl: benazepriL (LOTENSIN) 10 mg tablet, Take 1 tablet (10 mg total) by mouth daily, Disp: , Rfl: furosemide (LASIX) 20 mg tablet, Take 1 tablet (20 mg total) by mouth daily, Disp: 30 tablet, Rfl: 6 nitroglycerin (NITROSTAT) 0.4 mg SL tablet, Place 1 tablet (0.4 mg total) under the tongue every 5 (five) minutes as needed for chest pain May repeat dose q 5 min, up to 3 doses total, Disp: 25 tablet, Rfl: 3 potassium chloride ER 20 mEq CR tablet, Take 1 tablet (20 mEq total) by mouth daily, Disp: , Rfl: rosuvastatin (CRESTOR) 10 mg tablet, Take 1 tablet (10 mg total) by mouth daily, Disp: 90 tablet, Rfl: 2 albuterol HFA (PROVENTIL HFA,VENTOLIN HFA,PROAIR HFA) 90 mcg/actuation inhaler, Inhale 2 puffs 4 (four) times a day (Patient not taking: Reported on 06/13/2023), Disp: , Rfl: magnesium oxide 400 mg magnesium capsule, Take 2 capsules by mouth daily, Disp: , Rfl: No results found for: POTASSIUM , BUNSER , CREATININE , CHOL , TRIG , LDL , LDLCALC , HDL No results found for: WBC , HGB , HCT , MCV , PLT No results found for this or any previous visit (from the past 4 hour(s)). Assessment: Diagnoses and all orders for this visit: Chronic anticoagulation 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 (HCC) Syncope and collapse Coronary artery disease involving tunica-biloxi coronary artery of tunica-biloxi heart without angina pectoris Edema, lower extremity Labile hypertension Plan/Recommendations: She is on chronic anticoagulation for history of DVT. I agree with changing her from warfarin to Eliquis as long as it is affordable for her. She is currently wearing an event monitor to evaluate syncope. I told her she does not need to return to [place] to follow-up with a certified professional ergonomist. We can follow-up with the results of the monitorand she agreed. Therefore we decided to bring her back for an appointment at the end of next month to go over the result. Coronary artery disease appears stable at this time. Continue aspirin and rosuvastatin. She has chronic mild lower extremity edema, worse on the left leg which was affected by childhood polio and had surgeries. She recently injured the 2nd toe on the left foot and it is more swollen andpainful. I told her it is okay to wrap the foot as long as her skin remains intact. Continue furosemide. Blood pressure reading today is controlled. It looks like benazepril/HCTZ was changed to benazapril. Keep the previously scheduled follow-up visit with Dr. Mclean in 5 months, but I will see her sooner when she is done wearing the event monitor. 06/13/2023 RASHAD Gil- Nurse Practitioner with [facility] This note is dictated and transcribed using [employer] Fluency Direct Software. Production Control Technologist variancesmay occur. Despite proofreading, typographical errors may occur. OL 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 documented in this encounter Plan of Treatment Not on file documented as of this encounter Visit Diagnoses Diagnosis Chronic anticoagulation Encounter for long-term (current) use of anticoagulants 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 (HCC) Syncope and collapse Coronary artery disease involving tunica-biloxi coronary artery of tunica-biloxi heart without angina pectoris Edema, lower extremity Labile hypertension documented in this encounter Discontinued Medications Medication Sig Discontinue Reason Start Date End Da te warfarin (COUMADIN) 3 mg tablet Take 1 tablet (3 mg total) by mouth daily Take as directed per After Visit Summary. Alternate therapy 06/13/2023 cephalexin (KEFLEX) 250 mg capsule Therapy completed 03/12/2022 06/13/2023 benazepril-hydroCHLOR Othiazide (LOTENSIN HCT) 10-12.5 mg per tablet Take 1 tablet by mouth daily Discontinued by another clinician 06/13/2023 documented as of this encounter Historical Medications * This list may reflect changes made after this encounter. benazepriL (LOTENSIN) 10 mg tablet Take 1 tablet (10 mg total) by mouth daily 04/25/2023 magnesium oxide 400 mg magnesium capsule Take 2 capsules by mouth daily potassium chloride ER 20 mEq CR tablet Take 1 tablet (20 mEq total) by mouth daily 06/07/2023 amitriptyline (ELAVIL) 25 mg tablet Take 1 tablet (25 mg total) by mouth nightly at bedtime. 06/06/2023 10/10/2023 albuterol HFA (PROVENTIL HFA,VENTOLIN HFA,PROAIR HFA) 90 mcg/actuation inhaler Inhale 2 puffs 4 (four) times a day 03/24/2023 10/10/2023 added in this encounter Care Teams Truck Crane Operator Relationship Specialty Start Date End Date Jose A Lakhani DO [address] [place] [address] PCP - General Family Medicine 05/15/23 documented as of this encounter
--- OUTSIDE RECORDS SUMMARY | 2024-06-08 20:54 | XMS_ITS | Encounter Summary ---
Author Organization [facility] Address [address] [place] [address] Care Team Providers Care Geodetic Technician Name Role Phone Sixto Lund MD Primary Care Provider [phone] Encounter Details Date Type Department Care Team (Late st Contact Info) Description 03/31/2021 Telephone [facility] Cardiology [address] [place] [address] Ravinder Mclean MD [address] [facility] [address] [place] [address] Social History Tobacco Use Types Packs/Day Years Used Date Smoking Tobacco: Never Smokeless Tobacco: Never Alcohol Use Standard Drinks/Week Comments Yes 0 (1 standard drink = 0.6 oz pur e alcohol) PHQ-2 Answer Date Recorded PHQ-2 Score 1 05/28/2019 Comments Unknown Sex and Gender Information Value Date Recorded Sex Assigned at Not on file 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 With rest our heart rate will go down and with exertion or activity our heart rate should go up which is normal. 60-100 is normal. While on metoprolol its normal to have a lower heart rate and as long as it doesn't drop below 50's then we usually aren't too concerned unless pt is having symptoms. Pt knows this she states, she states she doesn't take the metoprolol regularly and her dreams have eased up she states I will take 1/2 of a tablet if my heart rate gets above 90. I let pt know I will note that in her chart. Pt verbalized understanding. * Telephone Encounter - Patrick Mathew NP - 03/31/2021 3:52 PM CDT Because she is being bothered by fatigue and vivid dreams, she can stop the metoprolol. She can take a half tablet as needed if she is feeling palpitations and/or her resting heart rate is 90 or above. Thank you for talking with her. * Telephone Encounter - Harshil Adler RN - 03/31/2021 2:01 PM CDT Called and spoke w/ patient who states that she doesn't like her heart rate below 60's and gets nervous when her HR reaches the 60's at all. She likes her HR in the 70's. The office note (which I reviewed w/ pt) states to check her BP and HR only in morning and evening unless not feeling well. Pt states she doesn't like the way the metoprolol makes her feel. She is very tired throughout the day, she is having sleep problems at night. She has the same dream with pictures and colors and it is nothing scary or bad but she didn't know if she was sleeping or not. I assured her that HR in the 60's even in the upper 50's are normal but I understand her anxiety with lower HR's. I told her the fatigue is a common side effect and sometimes pt's bodies will get used to the medication and its good totry because it is a good medication that strengthens the heart but also helps to stop the palpitations. I asked patient if she wanted to continue to monitor and try not taking her readings as often but like patrick said at morning and at night or unless she feels bad, and give it more time for her body to get used to the medication or was it that bad where she couldn't take the side effects anymore, patient said JOSE RAUL my heart rate is 64 now and when it gets back up like this im fine, its when it gets in the 60;s I start getting worked up I can't help it and im so tired I dont like feeling this tired during the day I want to get up and move around not sleep I told her I would notify mehdind let her know her concerns and get back w her regarding her recommendations. * Telephone Encounter - Galo East - 03/31/2021 1:29 PM CDT Pt called states last ov 03/20 DATA ACQUISITION TECHNICIAN Patrick started her on medication Metoprolol,states was instructed to take a half tab when BP/HR is high.pt states she had to take a half tab this morning states HRwas 95,pt states now BP IS 109/52 and HR 62.Pt also wants to mention since starting this medications she gets tired more often going to bed between noon and 4pm.also states she has been having colorful dreams states colorful puzzles,pictures etc ,makes her not want to fall asleep.pt states before this med she was not a tired/sleepy person.please advise.Thank you Contact:[phone] documented in this encounter Plan of Treatment Not on file documented as of this encounter Visit Diagnoses Not on filedocumented in this encounter Care Teams Geodetic Technician Relationship Specialty Start Date End Date Sixto Lund MD PCP - General 09/21/16 05/01/22 documented as of this encounter
--- OUTSIDE RECORDS SUMMARY | 2024-06-08 20:54 | XMS_ITS | Encounter Summary ---
Author Organization [facility] Care Team Providers Care Director Of Scientific Research Name Role Phone Sixto Lund MD Primary Care Provider [phone] Encounter Details Date Type Department Care Team (Latest Contact Info) Description 05/28/2019 Travel Social History Tobacco Use Types Packs/Day Years Used Date Smoking Tobacco: Never Smokeless Tobacco: Never Alcohol Use Standard Drinks/Week Comments Yes 0 (1 standard drink = 0.6 oz pur e alcohol) PHQ-2 Answer Date Recorded PHQ-2 Score 1 05/28/2019 Comments Unknown Sex and Gender Information Value Date Recorded Sex Assigned at Not on file 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
--- OUTSIDE RECORDS SUMMARY | 2024-06-08 20:54 | XMS_ITS | Encounter Summary ---
Author Organization [facility] Address [address] [place] [id number] Care Team Providers Care Travel Pta Name Role Phone Sixto Terrazas MD Primary Care Provider [phone] Reason for Visit * Reason Comments Follow-up 2 mo Encounter Details Date Type Department Care Team (Late st Contact Info) Description 04/23/2022 9:30 AM CDT Office Visit [facility] Cardiology [address] [facility] [address] [place] [address] Codie Mathew NP [address] [place] [address] 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 ([facility]); Chronic anticoagulation; Coronary artery disease involving [place] coronary artery of [place] heart without angina pectoris; PAD (peripheral artery disease) (CMS/HCC) (HCC); Edema, lower extremity; Labile hypertension Social History [...] on file Legal Sex 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 Gender Identity Not on file Sexual Orientation Not on file documented as of this encounter Last Filed Vital Signs Vital Sign Reading Time Taken Comments Blood Pressure 136/70 04/23/2022 9:31 AM CDT Pulse 83 04/23/2022 9:31 AM CDT Temperature - - Respiratory Rate - - Oxygen Saturation 96% 04/23/2022 9:31 AM CDT Inhaled Oxygen Concentration - - Weight 72.1 kg (159 lb) 04/23/2022 9:31 AM CDT Height 165.1 cm (5' 5 ) 04/23/2022 9:31 AM CDT Body Mass Index 26.46 04/23/2022 9:31 AM CDT documented in this encounter Progress Notes * Codie Mathew NP - 04/23/2022 9:30 AM CDT Images from the original note were not included. [facility] Cardiology [address] [place] [address] Date of Visit: 04/23/2022 Patient ID: Linda Garza [id number] Chief Complaint Patient presents with Follow-up 2 mo Linda Garza is a 81 y.o. female who is an established patient of Dr. Mclean with a history of CAD coming to the office for routine follow-up. History of Present Illness: Linda Garza is a 81 y.o. femalewith a PMHx of CAD LAD stent, h/o 80% RCA stenosis, HTN, dyslipidemia, chronic recurrent atypical CP, h/o LUE DVT on coumadin, chronic anxiety previously followed in [place]. 07/15/13 she returns today stating she has [...] noted in the 40's so sent to [place] ER by Dr. Terrazas EKG done HR [...] nearly completely resolved seeing Vascular surgery in [place] and is feeling better overall. She is [...] that is why she followed me from [place] and still chooses to see me and [...] pain. Going to see Vascular surgeon in [place] very soon and having vascular studies at [...] under significant stress Still seeing vascular in [place], wrapping legs, gets occ swelling. Still has [...] pain and no other accompanying symptoms with thesenight sweats. 08/07/18 Getting leg wraps every 2-3 [...] not hit head, did not lose consciousness. 7/2/20 States having issues ever since stent place [...] HR. Worried about her Echo with mod MR. Denies dizziness, no near syncope or syncope. [...] or just anxiety. Still seeing vascular in [place] told still needs wrap therapy but she [...] follow-up. [place] that she [...] on average. 10/06/21 Had bad UTI in [place] really weak still getting better using walker, [...] the lower extremity by vascular surgeon in [place] in 2018. She has swelling in thelegs. [...] loss. She wonders if she has lymphedema. Records that I personally reviewed on the day of this visit include: (the interpretation is outlined in the HPI above) 02/09/[address] Mclean I have also reviewed: allergies, current medications, [...] Known Problems Father Review of Systems Constitutional: Positive for diaphoresis and malaise/fatigue. Negative for fever, weight gain and weight loss. HENT: Negative for hearing loss. Eyes: Negative for visual disturbance. Cardiovascular: Positive for leg swelling and palpitations. Negative for chest pain, claudication, dyspnea on exertion, orthopnea, paroxysmal nocturnal dyspnea and syncope. Respiratory: Positive for sleep disturbances due to breathing. Negative for cough, hemoptysis, shortness of breath, snoring and wheezing. Hematologic/Lymphatic: Bruises/bleeds easily. Skin: Negative for poor wound healing and rash. Musculoskeletal: Positive for joint pain and myalgias. Gastrointestinal: Negative for heartburn, nausea and vomiting. Genitourinary: Negative for hematuria. Neurological: Negative for dizziness, headaches and light-headedness. Psychiatric/Behavioral: Negative for depression. The patient is not nervous/anxious. Vital Signs: BP 136/70 (BP Location: Right arm, Patient Position: Sitting) Pulse 83 Ht 165.1 cm (5' 5 ) Wt72.1 kg (159 lb) SpO2 96% BMI 26.46 kg/m?? Physical Exam Constitutional: General: She is not in acute distress. Appearance: She is well-developed. HENT: Head: Normocephalic and atraumatic. Nose: Comments: Wearing a mask Eyes: General: No scleral icterus. Conjunctiva/sclera: Conjunctivae normal. Neck: Vascular: No JVD. Trachea: No tracheal deviation. Cardiovascular: Rate and Rhythm: Normal rate and regular rhythm. Heart sounds: Normal heart sounds. No murmur heard. Comments: Bilateral post tibial pulses easily found with handheld Doppler, left pedal pulse easily found with handheld Doppler, right pedal pulse slightly diminished but verified with handheld Doppler Pulmonary: Effort: Pulmonary effort is normal. No respiratory distress. Breath sounds: Normal breath sounds. Musculoskeletal: Right lower leg: Edema present. Left lower leg: Edema present. Skin: General: Skin is warm and dry. Neurological: Mental Status: She is alert and oriented to person, place, and time. Psychiatric: Mood and Affect: Mood normal. Behavior: Behavior normal. Allergies Allergen Reactions Fqxkjje-Fvy-Qtx Reductase Inhibitors Muscle pain Prednisone Propoxyphene-Acetaminophen Current Outpatient Medications: ALPRAZolam (XANAX) 1 mg tablet, take 1 tablet by oral route every day as needed (Patient taking differently: Take 1 mg by mouth 3 (three) times a day as needed), Disp: 0, Rfl: 0 benazepriL (LOTENSIN) 10 mg tablet, Take 1 tablet (10 mg total) by mouth daily, Disp: 90 tablet, Rfl: 3 cephalexin (KEFLEX) 250 mg capsule, , Disp: , Rfl: furosemide (LASIX) 20 mg tablet, Take 1 tablet (20 mg total) by mouth daily, Disp: 30 tablet, Rfl: 11 nitroglycerin (NITROSTAT) 0.4 mg SL tablet, Place 1 tablet (0.4 mg total) under the tongue every 5 (five) minutes as needed for chest pain May repeat dose q 5 min, up to 3 doses total, Disp: 25 tablet, Rfl: 3 rosuvastatin (CRESTOR) 10 mg tablet, Take 1 tablet (10 mg total) by mouth daily, Disp: 90 tablet, Rfl: 2 warfarin (COUMADIN) 3 mg tablet, Take 3 mg by mouth daily Take as directed per After Visit Summary., Disp: , Rfl: aspirin 81 mg tablet, Take 81 mg by mouth daily. (Patient not taking: Reported on 04/23/2022), Disp: , Rfl: No results found for: POTASSIUM, BUNSER, CREATININE, CHOL, TRIG, LDL, LDLCALC, HDL No results found for: WBC, HGB, HCT, MCV, PLT No results found for this or any previous visit (from the past 4 hour(s)). Assessment: Diagnoses and all orders for this visit: 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 (HCC) Chronic anticoagulation Coronary artery disease involving [place] coronary artery of [place] heart without angina pectoris PAD (peripheral artery disease) (CMS/HCC) (HCC) Edema, lower extremity Labile hypertension Plan/Recommendations: She is on chronic anticoagulation with for history of DVT. PCP manages her INR. She denies any bleeding problems and is not falling. Therefore I recommend restarting aspirin 81 mg daily for her history of coronary and peripheral arterial disease. Continue rosuvastatin as well. She has mild lower extremity edema but my opinion this does not look like lymphedema. She describesneuropathic pain in the lower extremities and she is wondering if she could pursue some treatment to help us. I told her I will take some time to look through her chart at her history a little more and see what I could recommend. For now continue furosemide for management of her chronic lower extremity edema. Blood pressure reading today is appropriate for her age. I recommend she continue her benazepril. Return to the office to see Dr. Mclean in 3-4 months. Call us sooner with questions or concerns. 05/01/2022 addendum: I called the patient to let her know I looked through her chart history regarding treatment of her lower extremity edema and peripheral arterial disease. I reassured her with verifying the pulses in the feet that her peripheral arterial disease is likely adequately treated at this time. Her symptoms of swelling and discomfort could be venous disease and or neuropathy. She states there is a provider locally to her that treats neuropathy and I suggest she have a consultation with that provider. She verbalized understanding and was appreciative. 04/23/2022 Codie Mathew, ANP-BC Nurse Practitioner with [facility] This note is dictated and transcribed using [employer] Direct Software. Shearer Helper variancesmay occur. Despite proofreading, typographical errors may occur. ICAL TRIALS ASSISTANT documented in this encounter Plan of Treatment Not on file documented as of this encounter Visit Diagnoses Diagnosis 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 (HCC) Chronic anticoagulation Encounter for long-term (current) use of anticoagulants Coronary artery disease involving [place] coronary artery of [place] heart without angina pectoris PAD (peripheral artery disease) (HCC) Unspecified peripheral vascular disease Edema, lower extremity Labile hypertension documented in this encounter Historical Medications * This list may reflect changes made after this encounter. Medication Sig Dispense Quantity Refills Last Filled Start D ate End Date cephalexin (KEFLEX) 250 mg capsule 03/12/2022 06/13/2023 added in this encounter Care Teams Travel Pta Relationship Specialty Start Date End Date Sixto Terrazas MD PCP - General 09/21/16 05/01/22 documented as of this encounter
--- OUTSIDE RECORDS SUMMARY | 2024-06-08 20:54 | XMS_ITS | Encounter Summary ---
Author Organization [facility] Address [address] [place] [address] Care Team Providers Care Truck Bench Mechanic Name Role Phone Sixto Lund MD Primary Care Provider [phone] Encounter Details Date Type Department Care Team (Late st Contact Info) Description 03/01/[address] 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 * Telephone Encounter - Aleah Mccann RN - 03/02/2022 1:35 PM CDT Corinne, forwarding question to AD. Please advise, thank you! * Telephone Encounter - Sung Payan MD - 03/02/2022 1:11 PM CDT This patient belongs to Dr. Mclean. * Telephone Encounter - Aleah Mccann RN - 03/01/2022 2:02 PM CDT Spoke with PCP office and he advised pt to stop taking her aspirin but continue her warfarin d/t excessive bruising and high risk for falling. He wanted to make JF aware. Will forward to JF as FYI. * Telephone Encounter - Aleah Mccann RN - 03/01/2022 12:35 PM CDT Called office but they are closed for lunch will call back later. * Telephone Encounter - Galo Fong - 03/01/2022 11:45 AM CDT Opal called from office states he has ordered pt to stop ASA and remain only on Warfarin,states she is breathing too much and is high risk for falls,Please advise.Thank you Contact:[phone] documented in this encounter Plan of Treatment Not on file documented as of this encounter Visit Diagnoses Not on filedocumented in this encounter Care Teams Truck Bench Mechanic Relationship Specialty Start Date End Date Sixto Lund MD PCP - General 09/21/16 05/01/22 documented as of this encounter
--- OUTSIDE RECORDS SUMMARY | 2024-06-08 20:54 | XMS_ITS | Encounter Summary ---
Author Organization [facility] Address [address] [place] [id number] Care Team Providers Care Auto Radiator Specialist Name Role Phone Sixto Terrazas MD Primary Care Provider [phone] Reason for Referral * Cardiology (Routine) - Closed Specialty Diagnoses / Procedures Referred By Stacie t Referred To Contact Diagnoses Edema, unspecified Fatigue, unspecified type Procedures Transthoracic Echo Complete W Doppler/CF Fermin Ruiz NP [address] [place] [address] Phone: tel: fax: [facility] Referral ID Status Reason Start Date Expiration Date Visits Re quested Visits Authorized [id number] Closed 07/12/2020 08/11/2021 1 1 HER SAWYER * Cardiology (Routine) - Closed Specialty Diagnoses / Procedures Referred By Contac t Referred To Contact Diagnoses Palpitations Procedures Event Monitor, 30 Day Event Fermin Ruiz NP [address] [place] [id number] Phone: tel: fax: Referral ID Status Reason Start Date Expiration Date Visits Re quested Visits Authorized [id number] Closed 07/12/2020 08/11/2021 1 1 HER SAWYER Reason for Visit * Reason Comments Coronary Artery Disease 1 month f/u. Swo llen legs and weight gain. Statin intolerance Anxiety Abdominal Swelling Dizziness x 2 weeks Headache and tired during the day. Encounter Details Date Type Department Care Team (Late st Contact Info) Description 07/12/2020 9:00 AM FEATHER SAWYER Office Visit [facility] Cardiology [address] [place] [phone] Fermin Ruiz NP [address] [place] [id number] Palpitations (Primary Dx); Fatigue, unspecified type; Coronary artery disease involving [place] coronary artery of [place] heart without angina pectoris; PAD (peripheral artery disease) ([facility]); Edema, unspecified Social History Tobacco Use Types Packs/Day Years Used Date Smoking Tobacco: Never Smokeless Tobacco: Never Alcohol Use Standard Drinks/Week Comments Yes 0 (1 standard drink = 0.6 oz pur e alcohol) PHQ-2 Answer Date Recorded PHQ-2 Score 1 05/28/2019 Comments Unknown Sex and Gender Information Value Date Recorded Sex Assigned at Not on file Legal Sex 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 FEATHER SAWYER Gender Identity Not on file Sexual Orientation Not on file documented as of this encounter Last Filed Vital Signs Vital Sign Reading Time Taken Comments Blood Pressure 132/70 07/12/2020 9:09 AM FEATHER SAWYER Pulse 87 07/12/2020 9:09 AM FEATHER SAWYER Temperature - - Respiratory Rate - - Oxygen Saturation 97% 07/12/2020 9:09 AM FEATHER SAWYER Inhaled Oxygen Concentration - - Weight 73.2 kg (161 lb 6.4 oz) 07/12/2020 9:09 A M FEATHER SAWYER Height 165.1 cm (5' 5 ) 07/12/2020 9:09 AM FEATHER SAWYER Body Mass Index 26.86 07/12/2020 9:09 AM FEATHER SAWYER documented in this encounter Progress Notes * Fermin Ruiz NP - 07/12/2020 9:00 AM CST Images from the original note were not included. [facility] Cardiology [address] [facility] [address] [place] [id number] Date of Visit: 07/12/2020 Patient ID: Linda Garza [id number] Chief Complaint: Linda Garza is a 79 y.o. female who is an established patient Dr. Mclean with CAD and PAD, PVCs. She is returning for one-month follow-up. History of Present Illness: Linda Garza is a 79 y.o. 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 07/15/13 she returns today stating she has [...] noted in the 40's so sent to [place] ER by Dr. Terrazas EKG done HR [...] nearly completely resolved seeing Vascular surgery in [place] and is feeling better overall. She is [...] that is why she followed me from [place] and still chooses to see me and [...] pain. Going to see Vascular surgeon in [place] very soon and having vascular studies at [...] under significant stress Still seeing vascular in [place], wrapping legs, gets occ swelling. Still has [...] prednisone for inflamed hip joint which helped. Records that I personally reviewed on the day of this visit include: (the interpretation is outlined in the HPI above) 06/07/2020 office note from myself, 06/15/2020 CMP results (ordered by PCP) I have also reviewed: allergies, current medications, past family history, past medical history, past social history, past surgical history and problem list Review of Systems Constitution: Positive for malaise/fatigue and weight gain. Negative for diaphoresis, fever and weight loss. HENT: Negative for hearing loss. Eyes: Negative for visual disturbance. Cardiovascular: Positive for dyspnea on exertion, leg swelling and palpitations. Negative for chestpain, claudication, orthopnea, paroxysmal nocturnal dyspnea and syncope. Respiratory: Negative for cough, hemoptysis, snoring and wheezing. Hematologic/Lymphatic: Bruises/bleeds easily. Skin: Negative for poor wound healing and rash. Musculoskeletal: Positive for joint pain and myalgias. Gastrointestinal: Negative for heartburn, nausea and vomiting. Genitourinary: Negative for hematuria. Neurological: Positive for dizziness. Negative for headaches and light-headedness. Psychiatric/Behavioral: Negative for depression. The patient is not nervous/anxious. Vital Signs: BP 132/70 (BP Location: Left arm, Patient Position: Sitting) Pulse 87 Ht 165.1 cm (5' 5 ) Wt 73.2 kg (161 lb 6.4 oz) SpO2 97% BMI 26.86 kg/m?? Physical Exam Constitutional: She is oriented to person, place, and time. She appears well- developed and well-nourished. No distress. HENT: Head: Normocephalic and atraumatic. Nose: Nose normal. Wearing a mask Eyes: Pupils are equal, round, and reactive to light. Conjunctivae and EOM are normal. No scleral icterus. Neck: Normal range of motion. No JVD present. No tracheal deviation present. Cardiovascular: Normal rate, regular rhythm and normal heart sounds. No murmur heard. Left DP pulse and PT pulse were verified with the handheld Doppler. Left lower extremity skin is intact, no open wounds. Pulmonary/Chest: Effort normal and breath sounds normal. No respiratory distress. Abdominal: Soft. Bowel sounds are normal. There is no abdominal tenderness. Musculoskeletal: General: Edema present. Comments: Ambulating with cane. LLE 2+ pedal edema Left vogel has superficial wound w/ ecchymosis 2in x 3 in size. Neurological: She is alert and oriented to person, place, and time. Skin: Skin is warm and dry. Psychiatric: Her mood appears anxious. Allergies Allergen Reactions ??? Dychkta-Izr-Lke Reductase Inhibitors Muscle pain ??? Prednisone ??? Propoxyphene-Acetaminophen Current Outpatient Medications: ??? ALPRAZolam (XANAX) 1 mg tablet, take 1 tablet by oral route every day as needed (Patient takingdifferently: Take 1 mg by mouth 3 (three) times a day as needed. ), Disp: 0, Rfl: 0 ??? aspirin 81 mg tablet, Take 81 mg by mouth daily., Disp: , Rfl: ??? benazepriL (LOTENSIN) 10 mg tablet, TAKE 1 TABLET BY MOUTH DAILY, Disp: 90 tablet, Rfl: 3 ??? furosemide (LASIX) 20 mg tablet, Take 1 tablet (20 mg total) by mouth daily, Disp: 30 tablet, Rfl: 11 ??? nitroglycerin (NITROSTAT) 0.4 mg SL tablet, Place 1 tablet (0.4 mg total) under the tongue every 5 (five) minutes as needed for chest pain. May repeat dose q 5 min, up to 3 doses total, Disp: 25 tablet, Rfl: 3 ??? rosuvastatin (CRESTOR) 10 mg tablet, Take 1 tablet (10 mg total) by mouth daily, Disp: 30 tablet, Rfl: 11 ??? warfarin (COUMADIN) 3 mg tablet, Take 3 mg by mouth daily. Take as directed per After Visit Summary., Disp: , Rfl: ??? escitalopram (LEXAPRO) 5 mg tablet, Take 5 mg by mouth daily., Disp: , Rfl: No results found for: POTASSIUM, BUNSER, CREATININE, CHOL, TRIG, LDL, LDLCALC, HDL 06/15/2020 CMP showed K 4.0, BUN 12, creatinine 0.8, normal AST, ALT, alk-phos. Assessment: Diagnoses and all orders for this visit: Palpitations (Primary) - Event Monitor, 30 Day Event; Future Fatigue, unspecified type - Transthoracic Echo Complete W Doppler/CF; Future Coronary artery disease involving [place] coronary artery of [place] heart without angina pectoris PAD (peripheral artery disease) ([facility]) Edema, unspecified - Transthoracic Echo Complete W Doppler/CF; Future Plan/Recommendations: Over the last 2 weeks she has had several days of palpitations, heart rate in the 90s with an irregular heart rhythm indicator on her blood pressure machine. Her PCP gave her a course of prednisone to treat hip inflammation, but these palpitations occurred several days after finishing the prednisone. I will place a 30 day event monitor to further assess this. Fatigue could be multifactorial, but she is very bothered by the fact that she has notably less energy the last few months and does not think it is simply attributable to her age. I recommend having a new echo done to reassess her LV function. Stress test in July 2018 showed normal EF, but could consider getting an echo to reassess her LV function in the near future. She has a history of coronary artery disease. She had some problems tolerating statins in the past,but has been able to tolerate rosuvastatin, and remains on aspirin 81 mg daily. She is not reporting any symptoms concerning for angina. For history of peripheral arterial disease, I encouraged her to keep the follow- up appointment she has with the vascular surgeon next month. I verified the presence of pulses in the left lower extremity with the handheld Doppler. She still has lower extremity edema and her weight is up 3-4 lb from the last visit. She has been using the furosemide and consistently. Some days she takes a full tablet and other days she takes a half tablet. Her BMP showed normal renal function and normal potassium, so I encouraged her to use furosemide 20 mg daily in a consistent manner, at least over the next week, to see if the edema will im prove. If edema improves, she could take alternating daily doses of 10 mg and 20 mg. Return for follow-up with me in about 6 weeks to review the results of the echo and event monitor. Also keep the previously scheduled follow-up appointment with Dr. Mclean in October. Fermin Ruiz, ANP- Nurse Practitioner with [facility] This note is dictated and transcribed using [employer] Software. Health Care Law Specialist variancesmay occur. Despite proofreading, typographical errors may occur. HER SAWYER HER SAWYER documented in this encounter Plan of Treatment Pending Results Name Type Priority Associated Diagnoses Date /Time Event Monitor, 30 Day Event Cardiac Services Routine Palpitations 07/12/2020 10:30 AM FEATHER SAWYER Scheduled Orders Name Type Priority Associated Diagnoses Orde r Schedule Event Monitor, 30 Day Event Cardiac Services Routine Palpitations Expected: 07/12/2020, Expires: 07/12/2021 documented as of this encounter Results * TRANSTHORACIC ECHO (TTE) COMPLETE W DOPPLER/CF WO CONTRAST (07/27/2020 10:17 AM FEATHER SAWYER) Anatomical Region Laterality Modality Ultrasound 07/27/2020 9:06 AM FEATHER SAWYER Narrative 07/27/2020 7:52 PM FEATHER SAWYER [facility] Cardiology [address] [facility] [address], [place] [address] [address] [facility] [address], [place] [address] P:[phone] P:[phone] Echocardiographic Report Patient Name: LINDA GARZA : 7 Study Date: 07/27/2020 9:06:24 AM Gender: F Tech: Location: ID Ref.Provider: JOSTIN Height(Cm): 165 BSA: 1.8 Weight(Kg): 73.03 Heart Rate: 66 BP: 163/95 Quality: Good Order Provider: FERMIN RUIZ Procedures: Echocardiographic Report: Transthoracic echocardiogram with complete 2D, M-Mode, and color Doppler examination. Indications: Coronary Artery Disease, Edema, and Fatigue. Measurements: 2D/M Mode ?Doppler ? Measurement ?Value ?Normal Range ? Measurement ?Value ?Normal Range ? EF Mod ? 70 ?CISCO ?1.58 ? [ 2.00 - 4.00 ] cm2 ? LVIDd 2D ? 3.65 ? [ 3.90 - 5.30 ] cm ? AV Mean PG ? 8 ?mmHg ? LVIDs 2D ? 2.04 ? [ 2.30 - 3.90 ] cm ? AV Peak Tony ?1.84 ? m/s ? LVPWd 2D ? 1.37 ? [ 0.60 - 1.00 ] cm ? AV Peak PG ? 14 ? mmHg ? IVSd 2D ?1.37 ? [ 0.60 - 0.90 ] cm ? AV VTI ? 0.57 ? cm ? LA Dimension MM ?3.60 ? [ 2.70 - 3.80 ] cm ? LVOT Diam ?2.17 ? [ 1.70 - 2.10 ] cm ? AoR Diam MM ?2.67 ? [ 2.60 - 3.70 ] cm ? LVOT Peak Tony ?0.79 ? [ 0.70 - 1.10 ] m/s ? LA Volume Index ?15.00 ?[ 16.00 - 28.00 ] cc/m2 ?LVOT VTI ? 0.22 ? cm ? ACS MM ? 1.00 ? cm ? MV E Peak Tony ?0.68 ? [ 0.60 - 1.30 ] m/s ? MV A Peak Tony ?1.16 ? [ 0.40 - 0.80 ] m/s ? MV Decel Time ?300 ?[ 150 - 200 ] msec ? PV Peak Tony ?0.87 ? [ 0.40 - 0.80 ] m/s ? TR Peak Tony ?2.43 ? [ 0.40 - 0.80 ] m/s ? TR Peak PG ? 24 ? mmHg ? RVSP ? 32.00 ?mmHg ? E' ? 0.08 ? E/E' ? 9 ? Findings: Interpretation Site: Exam was interpreted at [facility]. Left Ventricle: Normal left ventricular systolic function. No focal wall motion abnormalities. Normal left ventricular size. Mild concentric left ventricular hypertrophy. Sigmoid hypertrophy of the septum. Normal left ventricular size. Normal global left ventricular systolic function. Impaired diastolic relaxation Grade I. Ejection fraction is visually estimated at 65-70 %. Ejection fraction is measured at 70 %. Right Ventricle: Normal right ventricular size. Normal right ventricular systolic function. Left Atrium: The left atrium is normal in size. Normal left atrial pressure based on pulmonary vein inflow. Right Atrium: The right atrium is normal in size. Atrial Septum: Normal atrial septum. Mitral Valve: Severe mitral annular calcification. Moderate to moderately severe mitral valve regurgitation. Aortic Valve: Mild aortic stenosis. Mean gradient of 8.0 mmHg. Valve area of 1.58 cm2. Aortic cusps appear mildly calcified. Tricuspid Valve: Normal right ventricular systolic pressure. Estimated peak RVSP is 32 mmHg. Mild tricuspid regurgitation. Pulmonic Valve: Normal appearance of the pulmonic valve. Pericardium: Normal pericardium with no significant pericardial effusion. Aorta: Normal aortic root. Sinus of Valsalva is normal. Sinotubular junction is normal. Ascending aorta is normal. Aortic arch is normal. Descending aorta is normal. IVC: Normal size and normal respiratory collapse consistent with normal right atrial pressure (<5 mmHg). Pulmonary Artery: Normal pulmonary artery size. Conclusions: Normal left ventricular systolic function. No focal wall motion abnormalities. Normal left ventricular size. Mild concentric left ventricular hypertrophy. Impaired diastolic relaxation Grade I. Ejection fraction is visually estimated at 65-70 %. Ejection fraction is measured at 70%. Moderate to moderately severe mitral valve regurgitation. Mild aortic stenosis. Mean gradient of 8.0 mmHg. Valve area of 1.58 cm2. Aortic cusps appear mildly calcified. Mild tricuspid regurgitation. Normal right ventricular systolic pressure. Estimated peak RVSP is 32 mmHg. Normal sinus rhythm. Electronically Signed By: Etelvina Whiting MD, [facility] 2020-07-27 19:52:32 FEATHER SAWYER Procedure Note Etelvina Whiting MD - 07/27/2020 [facility] Cardiology [address] [facility] [address], [place] [address] [address] [facility] [address], [place], [place] [address] P:[phone] P:[phone] Echocardiographic Report Patient Name: LINDA GARZAPatient ID: [id number] : [id number] Date: 07/27/2020 9:06:24 AM Gender: FAccession #: [id number] Tech: GMLocation: ID Ref.Provider: Rachell(Cm): 165 BSA: 1.8Weight(Kg): 73.03 Heart Rate: 66BP: 163/95 Quality: GoodOrder Provider: FERMIN RUIZ Procedures: Echocardiographic Report: Transthoracic echocardiogram with complete 2D, M-Mode, and color Dopplerexamination. Indications: Coronary Artery Disease, Edema, and Fatigue. Measurements: 2D/M Mode Doppler Measurement Value Normal Range MeasurementValue Normal Range EF Mod 70 AVA1.58 [ 2.00 - 4.00 ] cm2 LVIDd 2D 3.65 [ 3.90 - 5.30 ] cm AV Mean PG 8mmHg LVIDs 2D 2.04 [ 2.30 - 3.90 ] cm AV Peak Vel1.84 m/s LVPWd 2D 1.37 [ 0.60 - 1.00 ] cm AV Peak PG 14mmHg IVSd 2D 1.37 [ 0.60 - 0.90 ] cm AV VTI0.57 cm LA Dimension MM 3.60 [ 2.70 - 3.80 ] cm LVOT Diam2.17 [ 1.70 - 2.10 ] cm AoR Diam MM 2.67 [ 2.60 - 3.70 ] cm LVOT Peak Vel0.79 [ 0.70 - 1.10 ] m/s LA Volume Index 15.00 [ 16.00 - 28.00 ] cc/m2 LVOT VTI0.22 cm ACS MM 1.00 cm MV E Peak Vel0.68 [ 0.60 - 1.30 ] m/s MV A Peak Vel1.16 [ 0.40 - 0.80 ] m/s MV Decel [id number] [ 150 - 200 ] msec PV Peak Vel0.87 [ 0.40 - 0.80 ] m/s TR Peak Vel2.43 [ 0.40 - 0.80 ] m/s TR Peak PG 24mmHg RVSP32.00 mmHg E'0.08 E/E' 9 Findings: Interpretation Site: Exam was interpreted at [facility]. Left Ventricle: Normal left ventricular systolic function. No focal wall motionabnormalities. Normal left ventricular size. Mild concentric left ventricular hypertrophy.Sigmoid hypertrophy of the septum. Normal left ventricular size. Normal global leftventricular systolic function. Impaired diastolic relaxation Grade I. Ejection fraction isvisually estimated at 65-70 %. Ejection fraction is measured at 70 %. Right Ventricle: Normal right ventricular size. Normal right ventricular systolicfunction. Left Atrium: The left atrium is normal in size. Normal left atrial pressure based onpulmonary vein inflow. Right Atrium: The right atrium is normal in size. Atrial Septum: Normal atrial septum. Mitral Valve: Severe mitral annular calcification. Moderate to moderately severe mitralvalve regurgitation. Aortic Valve: Mild aortic stenosis. Mean gradient of 8.0 mmHg. Valve area of 1.58 cm2.Aortic cusps appear mildly calcified. Tricuspid Valve: Normal right ventricular systolic pressure. Estimated peak RVSP is 32mmHg. Mild tricuspid regurgitation. Pulmonic Valve: Normal appearance of the pulmonic valve. Pericardium: Normal pericardium with no significant pericardial effusion. Aorta: Normal aortic root. Sinus of Valsalva is normal. Sinotubular junction isnormal. Ascending aorta is normal. Aortic arch is normal. Descending aorta isnormal. IVC: Normal size and normal respiratory collapse consistent with normal rightatrial pressure (<5 mmHg). Pulmonary Artery: Normal pulmonary artery size. Conclusions: Normal left ventricular systolic function. No focal wall motionabnormalities. Normal left ventricular size. Mild concentric left ventricular hypertrophy.Impaired diastolic relaxation Grade I. Ejection fraction is visually estimated at 65-70 %.Ejection fraction is measured at 70%. Moderate to moderately severe mitral valve regurgitation. Mild aortic stenosis. Mean gradient of 8.0 mmHg. Valve area of 1.58 cm2.Aortic cusps appear mildly calcified. Mild tricuspid regurgitation. Normal right ventricular systolic pressure. Estimated peak RVSP is 32mmHg. Normal sinus rhythm. Electronically Signed By: Etelvina Whiting MD, [facility] 2020-07-27 19:52:32 FEATHER SAWYER Fermin Ruiz NP CV ECHO PROCEDURES Final Result documented in this encounter Visit Diagnoses Diagnosis Palpitations- Primary Fatigue, unspecified type Coronary artery disease involving [place] coronary artery of [place] heart without angina pectoris PAD (peripheral artery disease) (HCC) Unspecified peripheral vascular disease Edema, unspecified Edema, unspecified Fatigue, unspecified type documented in this encounter Care Teams Auto Radiator Specialist Relationship Specialty Start Date End Date Sixto Terrazas MD PCP - General 09/21/16 05/01/22 documented as of this encounter
--- OUTSIDE RECORDS SUMMARY | 2024-06-08 20:54 | XMS_ITS | Encounter Summary ---
Author Organization [facility] Healthcare Address [address] [place] [id number] Care Team Providers Care Allergist/Immunologist Name Role Phone Jose A Lakhani DO Primary Care Provider Reason for Visit * Reason Comments Follow-up 3 mo f/u Coronary Artery Disease Palpitations Encounter Details Date Type Department Care Team (Late st Contact Info) Description 05/15/2023 2:30 PM AUTOCUTTER Office Visit [facility] Medical Group Cardiology [address] [place] [address] Ravinder Mclean MD [address] [facility] [address] [place] [address] Coronary artery disease involving afognak coronary artery of afognak heart without angina pectoris (Primary Dx); Labile hypertension; Mixed hyperlipidemia; Statin myopathy; Nonrheumatic aortic valve stenosis; Chronic anticoagulation; Abdominal swelling Social History Tobacco Use Types Packs/Day Years Used Date Smoking Tobacco: Never Smokeless Tobacco: Never Alcohol Use Standard Drinks/Week Comments Yes 0 (1 standard drink = 0.6 oz pur e alcohol) PHQ-2 Answer Date Recorded PHQ-2 Score 1 05/28/2019 Comments Unknown Sex and Gender Information Value Date Recorded Sex Assigned at Not on file Legal Sex 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 AUTOCUTTER Gender Identity Not on file Sexual Orientation Not on file documented as of this encounter Last Filed Vital Signs Vital Sign Reading Time Taken Comments Blood Pressure 130/72 05/15/2023 2:54 PM AUTOCUTTER Pulse 89 05/15/2023 2:54 PM AUTOCUTTER Temperature - - Respiratory Rate - - Oxygen Saturation 97% 05/15/2023 2:54 PM AUTOCUTTER Inhaled Oxygen Concentration - - Weight 67.6 kg (149 lb 1.6 oz) 05/15/2023 2:54 P M AUTOCUTTER Height 165.1 cm (5' 5 ) 05/15/2023 2:54 PM AUTOCUTTER Body Mass Index 24.81 05/15/2023 2:54 PM AUTOCUTTER documented in this encounter Ordered Prescriptions Prescription Sig Dispense Quantity Refills Last Filled Start Date End Date furosemide (LASIX) 20 mg tabletIndications:A bdominal swelling Take 1 tablet (20 mg total) by mouth daily 30 tablet 6 05/15/2023 documented in this encounter Progress Notes * Ravinder Mclean MD - 05/15/2023 2:30 PM CST [facility] DATE OF VISIT: 05/15/2023 CHIEF COMPLAINT Chief Complaint Patient presents with Follow-up 3 mo f/u Coronary Artery Disease Palpitations HPI Linda Garza is a 82 y.o. 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 07/15/13 she returns today stating she has [...] noted in the 40's so sent to [place] ER by Dr. Terrazas EKG done HR [...] nearly completely resolved seeing Vascular surgery in [place] and is feeling better overall. She is [...] that is why she followed me from [place] and still chooses to see me and [...] pain. Going to see Vascular surgeon in [place] very soon and having vascular studies at [...] under significant stress Still seeing vascular in [place], wrapping legs, gets occ swelling. Still has [...] or just anxiety. Still seeing vascular in [place] told still needs wrap therapy but she [...] follow-up. [place] and shortly after that she [...] the lower extremity by vascular surgeon in [place] in 2018. She has swelling in thelegs. [...] now improved. Had COVID 2 weeks ago. MEDICAL HISTORY Past Medical History: Diagnosis Date Cardiovascular disease Coronary Artery Disease HX OTHER MEDICAL Chronic Anxiety HX OTHER MEDICAL DVT: LUE Hypertension Hypertension Hypothyroidism Hypothyroidism Social History Tobacco Use Smoking status: Never Smoker Smokeless tobacco: Never Used Substance Use Topics Alcohol use: Yes Drug use: Never Family History Problem Relation Age of Onset No Known Problems Mother No Known Problems Father MEDICATIONS HOME MEDICATIONS : ALPRAZolam (XANAX) 1 mg tablet aspirin 81 mg tablet benazepril-hydroCHLOROthiazide (LOTENSIN HCT) 10-12.5 mg per tablet nitroglycerin (NITROSTAT) 0.4 mg SL tablet rosuvastatin (CRESTOR) 10 mg tablet warfarin (COUMADIN) 3 mg tablet furosemide (LASIX) 20 mg tablet cephalexin (KEFLEX) 250 mg capsule furosemide (LASIX) 20 mg tablet ALLERGIES Allergies Allergen Reactions Qjccecd-Pue-Udy Reductase Inhibitors Muscle pain Prednisone Propoxyphene-Acetaminophen REVIEW OF SYSTEMS Review of Systems Constitutional: Positive for malaise/fatigue and weight loss. Negative for decreased appetite, diaphoresis, fever, night sweats and weight gain. HENT: Negative for hearing loss and nosebleeds. Eyes: Negative for blurred vision and pain. Cardiovascular: Positive for irregular heartbeat, leg swelling and palpitations. Negative for chestpain, claudication, dyspnea on exertion, near-syncope, orthopnea and syncope. Respiratory: Negative for cough, hemoptysis, [...] patientis nervous/anxious. Allergic/Immunologic: Negative for environmental allergies. All other systems reviewed and are negative. PHYSICAL EXAM Vitals BP 130/72 (BP Location: Left arm, Patient Position: Sitting) Pulse 89 Ht 165.1 cm (5' 5 ) Wt 67.6 kg (149 lb 1.6 oz) SpO2 97% BMI 24.81 kg/m?? Weight: 67.6 kg (149 lb 1.6 oz) Height: 165.1 cm (5' 5 ) Body mass index is 24.81 kg/m??. Physical Exam Vitals reviewed. Constitutional: General: She is not in acute distress. Appearance: Normal appearance. She is well-developed. She is not diaphoretic. HENT: Head: Normocephalic and atraumatic. Right Ear: External ear normal. Left Ear: External ear normal. Nose: Nose normal. Mouth/Throat: Mouth: Mucous membranes are moist. Dentition: Normal dentition. Eyes: General: Lids are normal. No scleral icterus. Extraocular Movements: Extraocular movements intact. Conjunctiva/sclera: Conjunctivae normal. Neck: Thyroid: No thyromegaly. Vascular: Normal carotid pulses. No carotid bruit, hepatojugular reflux or JVD. Trachea: No tracheal deviation. Cardiovascular: Rate and Rhythm: Normal rate and regular rhythm. Pulses: Normal pulses and intact distal pulses. No decreased pulses. Heart sounds: S1 normal and S2 normal. Heart sounds not distant. Murmur heard. Medium-pitched early systolic murmur is present with a grade of 2/6 at the upper right sternal border. No friction rub. No gallop. No S3 or S4 sounds. Pulmonary: Effort: Pulmonary effort is normal. No respiratory distress. Breath sounds: Normal breath sounds. No wheezing or rales. Chest: Chest wall: No tenderness. Abdominal: General: Bowel sounds are normal. There is no distension. Palpations: Abdomen is soft. There is no mass. Tenderness: There is no abdominal tenderness. There is no guarding or rebound. Musculoskeletal: General: No tenderness or deformity. Normal range of motion. Cervical back: Normal range of motion and neck supple. Right lower leg: Edema present. Left lower leg: Edema present. Comments: 1+ L LE edema compression stocking 1+ RLE edema bruising anterior shins Lymphadenopathy: Cervical: No cervical adenopathy. Skin: General: Skin is warm and dry. Coloration: Skin is not pale. Findings: No ecchymosis, erythema, petechiae or rash. Nails: There is no clubbing. Neurological: General: No focal deficit present. Mental Status: She is alert and oriented to person, place, and time. Mental status is at baseline. Cranial Nerves: No cranial nerve deficit. Motor: No abnormal muscle tone. Coordination: Coordination normal. Psychiatric: Mood and Affect: Mood normal. Speech: Speech normal. Behavior: Behavior normal. Behavior is cooperative. Thought Content: Thought content normal. Judgment: Judgment normal. LABS AND OTHER DIAGNOSTIC TESTS No visits with results within 3 Month(s) from this visit. Latest known visit with results is: Office Visit on 09/28/2022 Component Date Value Ref Range Status Cholesterol, POC 09/28/2022 206 mg/dL Final HDL, POC 09/28/2022 46 mg/dL Final Triglycerides, POC 09/28/2022 203 mg/dL Final LDL, Direct, POC 09/28/2022 119 mg/dL Final Chol/HDL Ratio, POC 09/28/2022 2.6 Final Non-HDL Cholesterol, POC 09/28/2022 160 mg/dL Final Cholesterol Total, POC 09/28/2022 206 mg/dL Final Results for orders placed or performed in visit on 09/28/22 POCT lipid panel Result Value Ref Range Cholesterol, POC 206 mg/dL HDL, POC 46 mg/dL Triglycerides, POC 203 mg/dL LDL, Direct, POC 119 mg/dL Chol/HDL Ratio, POC 2.6 Non-HDL Cholesterol, POC 160 mg/dL Cholesterol Total, POC 206 mg/dL 08/18/18 Lexiscan Stress test: Conclusions: Global left ventricular function is normal. Left ventricular ejection fraction is 69 %. Myocardial perfusion imaging is normal. Negative EKG portion of stress test. 07/27/20 2D Echo: Conclusions: Normal left ventricular systolic function. No [...] RVSP is 32 mmHg. Normal sinus rhythm. 07/31/21 2D Echo: Conclusions: Normal left ventricular systolic function. No focal wall motion abnormalities. Normal left ventricular size. Moderate concentric left ventricular hypertrophy. Impaired diastolic relaxation Grade I. Ejection fraction is measured at 68 %. Mitral valve leaflets appear moderately thickened. Moderate mitral annular calcification. Trivial regurgitation of the mitral valve. Mean gradient of 3.00 mmHg. Valve area of 2.7 cm2. Aortic valve not well visualized. Mild aortic stenosis. Peak gradient of 22.0 mmHg. Mean gradient of 13.0 mmHg. Valve area of 1.97 cm2. Aortic cusps appear moderately calcified. Probable trileaflet aortic valve, although not all leaflets are visualized. No aortic regurgitation. Normal appearance of the tricuspid valve. Mild pulmonary hypertension based on right ventricular systolic pressure. Estimated peak RVSP is 41 mmHg. Mild tricuspid regurgitation. Normal sinus rhythm. Technically difficult study with limited views. Personally reviewed EKG, Echocardiogram, heart monitor 02/2017 occ PVC's, underlying SR, and bloodwork/lipids. ASSESSMENT Diagnoses and all orders for this visit: Coronary artery disease involving afognak coronary artery of afognak heart without angina pectoris (Primary) Labile hypertension Mixed hyperlipidemia - POCT lipid panel Statin myopathy Nonrheumatic aortic valve stenosis Chronic anticoagulation Abdominal swelling - furosemide (LASIX) 20 mg tablet; Take 1 tablet (20 mg total) by mouth daily PLAN/RECOMMENDATIONS 1. Infrequent CP, No clear anginal symptoms. She is to notify the office immediately with any new or concerning symptoms and if severe or unrelenting present to the nearest ER via EMS. Aggressive CADrisk modification counseling performed. Continue current medical therapy. Notify office immediatelywith anginal symptoms. -Stress test negative EF 69% 08/18/18 2. Lipids personally reviewed 05/15/23 LDL 61, well controlled, goal LDL<70. Continue Rosuvastatin 10mg qhs which she appears to be tolerating well at this time. 3. BP controlled, goal <140/90mmHg. Continue Benazepril 10mg daily, states 20mg drops BP too much. Call with readings or any other concerns immediately including uncontrolled BP or worsening edema. Continue consistent cardiovascular exercise, weight loss, medication compliance, and low-sodium diet. -Taking Lasix 20 mg 3x/week working well for her. Caution to avoid risk for falls and injuries. -she remains on Benazepril-Hydrochlorothiazide 10/12.5mg daily. Tolerating well. Ambulate with caution given fall risk and anticoagulation. 4. Remains off BB given h/o symptomatic bradycardia and hypotension. 5. 07/2021 Echo mod LVH EF 70% borderline , trivial MR, RVSP 41mmHg. MR much improved from 2020 Echo. Asymptomatic. Will monitor clinically. Plan to repeat echocardiogram in the next 1-2 years. 6. PCP managing INR. Monitor for bleeding. Defer to PCP for management in this regard as he is managing anticoagulation. She verbalized understanding and agrees to follow with PCP in this regard. -Monitor for bleeding very closely. If falls/injury with bleeding or head injury go to ER immediately. -Extreme caution with ambulation to avoid risk for falls and injuries. -Again, may hold ASA if excessive bleeding or bruising but would prefer to continue if appropriate risk vs benefit. Advised to hold until hematoma on leg improves. My total encounter time on 05/15/2023 was 40 minutes which was spent in the activities documented in the note. This includes time spent prior to the visit and after the visit in direct care of the patient. This time does not include time spent in any separately reportable services. Over 50% of this visit counseling edema, CAD, HTN, lipids, medications, lifestyle modification. Follow up in the office in 6 months or sooner as needed. Thank you for allowing me the privilege of participating in the care this very pleasant patient. Please do not hesitate to contact me with any additional questions or concerns. Sonia Mclean MD, [facility] CUTTER documented in this encounter Plan of Treatment Not on file documented as of this encounter Procedures Procedure Name Priority Date/Time Associated Diagnosis Comments POCT LIPID PANEL Routine 05/15/2023 3:05 PM AUTOCUTTER Mixed hyperlipidemia documented in this encounter Results * POCT lipid panel (05/15/2023 3:05 PM AUTOCUTTER) Cholesterol, POC 164 mg/dL Comment:GLU = 96 HDL, POC 29 mg/dL Triglycerides, POC 372 mg/dL LDL Cholesterol POC 61 mg/dL Chol/HDL Ratio, POC 2.1 Non-HDL Cholesterol, POC 135 mg/dL Cholesterol Total, POC 164 mg/dL Capillary blood 05/15/2023 3 :05 PM AUTOCUTTER Ravinder Mclean MD POINT OF CARE TEST ORDER MALOU Final Result documented in this encounter Visit Diagnoses Diagnosis Coronary artery disease involving afognak coronary artery of afognak heart without angina pectoris- Primary Labile hypertension Mixed hyperlipidemia Statin myopathy Toxic myopathy Nonrheumatic aortic valve stenosis Chronic anticoagulation Encounter for long-term (current) use of anticoagulants Abdominal swelling documented in this encounter Discontinued Medications Medication Sig Discontinue Reason Start Date End Da te furosemide (LASIX) 20 mg tabletIndications:Abdomi nal swelling Take 1 tablet (20 mg total) by mouth daily Reorder 06/07/2020 05/15/2023 documented as of this encounter Care Teams Allergist/Immunologist Relationship Specialty Start Date End Date Jose A Lakhani DO [address] [place] [address] PCP - General Family Medicine 05/15/23 documented as of this encounter
--- OUTSIDE RECORDS SUMMARY | 2024-06-08 20:54 | XMS_ITS | Encounter Summary ---
Author Organization [facility] Healthcare Address [address] [place] [address] Care Team Providers Care General Manager In Training Name Role Phone Jose A Lakhani DO Primary Care Provider Encounter Details Date Type Department Care Team (Late st Contact Info) Description 11/21/2023 Telephone [facility] Medical Group Cardiology [address] [place] [address] Sung Payan MD [facility] [address] Social History Tobacco Use Types Packs/Day Years Used Date Smoking Tobacco: Never Smokeless Tobacco: Never Alcohol Use Standard Drinks/Week Comments Yes 0 (1 standard drink = 0.6 oz pur e alcohol) PHQ-2 Answer Date Recorded PHQ-2 Score 1 05/28/2019 Comments Unknown Sex and Gender Information Value Date Recorded Sex Assigned at Not on file 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 Pt will callback after a week if her swelling has not improved. * Telephone Encounter - Sung Payan MD - 11/22/2023 7:32 AM CDT Since the heart rate is slow but she has no symptoms of dizziness or syncope I would recommend to observe. In regards to the lower extremity edema I suggest that she takes Lasix every day for a week and then re-evaluate. * Telephone Encounter - Aleah Mccann RN - 11/21/2023 3:43 PM CDT Spoke with pt, she has had some increased swelling over the past week in both of her legs and her clothes arent fitting very well either. Pt said she is normally 135 pounds and yesterday she was 139.Pt does not weigh herself daily but instructed her on how to do that going forward. Pt has no SOB and is taking furosemide 20mg 3xweek. Pt also noted concern about her HR today ranging from 58-62 butshe is feeling fine. Pt said she may have herself worked up over this and noted she did go to the ED for them to recheck her HR and BP and it was 124/72 and HR 60. Advised pt to not over check her BPand HR at home as this can cause more anxiety and worry. JF-this pt was a previous AD and is scheduled to see you in the future. Please advise, thank you! * Telephone Encounter - Cait Ribeiro - 11/21/2023 2:44 PM CDT Pt called to report she has edema in her legs and her HR has been low the past 3-4 days. Her HR hasbeen around 55-61. Requesting call back to discuss. Contact: documented in this encounter Plan of Treatment Not on file documented as of this encounter Visit Diagnoses Not on filedocumented in this encounter Care Teams General Manager In Training Relationship Specialty Start Date End Date Jose A Lakhani DO [address] [place] [address] PCP - General Family Medicine 05/15/23 documented as of this encounter
--- OUTSIDE RECORDS SUMMARY | 2024-06-08 20:54 | XMS_ITS | Encounter Summary ---
Author Organization [facility] Address [address] [place] [address] Care Team Providers Care Client Professional Name Role Phone Sixto Terrazas MD Primary Care Provider [phone] Reason for Visit * Reason Comments Coronary Artery Disease 2 mo f/u Fall on 10/16/20- followed up at ED Encounter Details Date Type Department Care Team (Late st Contact Info) Description 11/02/2020 1:00 PM CDT Office Visit [facility] Cardiology [address] [place] [address] Ravinder Mclean MD [address] [facility] [address] [place], [place] [id number] Coronary artery disease involving kanatak coronary artery of kanatak heart without angina pectoris (Primary Dx); Labile hypertension; Statin myopathy; Nonrheumatic mitral valve regurgitation; Dyslipidemia; Chronic anticoagulation; 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 (CMS/HCC); History of fall Social History Tobacco Use Types Packs/Day Years Used Date Smoking Tobacco: Never Smokeless Tobacco: Never Alcohol Use Standard Drinks/Week Comments Yes 0 (1 standard drink = 0.6 oz pur e alcohol) PHQ-2 Answer Date Recorded PHQ-2 Score 1 05/28/2019 Comments Unknown Sex and Gender Information Value Date Recorded Sex Assigned at Not on file 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 Gender Identity Not on file Sexual Orientation Not on file documented as of this encounter Last Filed Vital Signs Vital Sign Reading Time Taken Comments Blood Pressure 118/68 11/02/2020 12:54 PM CDT Pulse 77 11/02/2020 12:54 PM CDT Temperature - - Respiratory Rate - - Oxygen Saturation 98% 11/02/2020 12:54 PM CDT Inhaled Oxygen Concentration - - Weight 70.5 kg (155 lb 6.4 oz) 11/02/2020 12:54 PM CDT Height 165.1 cm (5' 5 ) 11/02/2020 12:54 PM CDT Body Mass Index 25.86 11/02/2020 12:54 PM CDT documented in this encounter Ordered Prescriptions Prescription Sig Dispense Quantity Refills Last Filled Start Date End Date nitroglycerin (NITROSTAT) 0.4 mg SL tabletIndications: Coronary artery disease involving kanatak coronary artery of kanatak heart without angina pectoris Place 1 tablet (0.4 mg total) under the tongue every 5 (five) minutes as needed for chest pain May repeat dose q 5 min, up to 3 doses total 25 tablet 3 11/02/2020 3 documented in this encounter Progress Notes * Ravinder Mclean MD - 11/02/2020 1:00 PM CDT [facility] DATE OF VISIT: 11/02/2020 CHIEF COMPLAINT Chief Complaint Patient presents with ??? Coronary Artery Disease 2 mo f/u ??? Fall on 10/16/20- followed up at ED HPI Linda Garza is a 79 y.o. female with a PMHx of CAD LAD stent, h/o 80% RCA stenosis, HTN, dyslipidemia, chronic recurrent atypical CP, h/o LUE DVT on coumadin, chronic anxiety previously followed in [place]. 07/15/13 she returns today stating she has [...] motion abnormalities. 05/17/15 c/o frequent falls fell 9/21, 04/08, and 05/10, no LOC bruising and [...] noted in the 40's so sent to [facility] by Dr. Terrazas EKG done HR 55bpm. [...] nearly completely resolved seeing Vascular surgery in [place] and is feeling better overall. She is [...] that is why she followed me from [place] and still chooses to see me and [...] pain. Going to see Vascular surgeon in [place] very soon and having vascular studies at [...] under significant stress Still seeing vascular in [place], wrapping legs, gets occ swelling. Still has [...] is anxiety. She is not sure why shehas gained weight, she has not made any [...] Had Echo mod MR, EF normal mod Notes gets tired sleepy every day around [...] wateras she feels may be more dehydrated. MEDICAL HISTORY Past Medical History: Diagnosis Date [...] 1 mg tablet aspirin 81 mg tablet benazepriL (LOTENSIN) 10 mg tablet escitalopram (LEXAPRO) 5 mg tablet furosemide (LASIX) 20 mg tablet nitroglycerin (NITROSTAT) 0.4 mg SL tablet rosuvastatin (CRESTOR) 10 mg tablet warfarin (COUMADIN) 3 mg tablet nitroglycerin (NITROSTAT) 0.4 mg SL tablet ALLERGIES Allergies Allergen Reactions ??? Ohxrwlf-Vqq-May Reductase Inhibitors Muscle pain ??? Prednisone ??? Propoxyphene-Acetaminophen REVIEW OF SYSTEMS Review of Systems Constitution: Positive for malaise/fatigue and weight loss. Negative [...] for environmental allergies. PHYSICAL EXAM Vitals BP 118/68 (BP Location: Left arm, Patient Position: Sitting) Pulse 77 Ht 165.1 cm (5' 5 ) Wt 70.5 kg (155 lb 6.4 oz) SpO2 98% BMI 25.86 kg/m?? Weight: 70.5 kg (155 lb 6.4 oz) Height: 165.1 cm (5' 5 ) Body mass index is 25.86 kg/m??. Physical Exam Constitutional: She is oriented [...] are normal. No scleral icterus. Neck: Normal carotid pulses, no hepatojugular reflux and no JVD present. Carotid bruit is not present. No tracheal deviation present. No thyromegaly present. Cardiovascular: Normal rate, regular rhythm, S1 normal, S2 normal, intact distal pulses and normal pulses. Exam reveals no gallop, no S3, no S4, no distant heart sounds and no friction rub. Murmur heard. Medium-pitched early systolic murmur is present with a grade of 2/6 at the upper right sternal border. Pulmonary/Chest: Effort normal and breath sounds normal. No respiratory distress. She has no wheezes. She has no rales. She exhibits no tenderness. Abdominal: Soft. Bowel sounds are normal. She exhibits no distension and no mass. There is no abdominal tenderness. There is no rebound and no guarding. Musculoskeletal: General: Edema present. No tenderness or deformity. Normal range of motion. Cervical back: Normal range of motion and neck supple. Comments: trace to 1+ bilateral LE edema Lymphadenopathy: She has no cervical adenopathy. Neurological: She is alert and oriented to person, place, and time. No cranial nerve deficit. She exhibits normal muscle tone. Coordination normal. Skin: Skin is warm and dry. No ecchymosis, no petechiae and no rash noted. She is not diaphoretic. No cyanosis or erythema. No pallor. Nails show no clubbing. Psychiatric: She has a normal mood and affect. Her speech is normal and behavior is normal. Judgment normal. LABS AND OTHER DIAGNOSTIC TESTS No visits with results within 3 Month(s) from this visit. Latest known visit with results is: Office Visit on 04/06/2020 Component Date Value Ref Range Status ??? Cholesterol, POC 04/06/2020 347 mg/dL Final ??? HDL, POC 04/06/2020 55 mg/dL Final ??? Triglycerides, POC 04/06/2020 200 mg/dL Final ??? LDL, Direct, POC 04/06/2020 252 mg/dL Final ??? Chol/HDL Ratio, POC 04/06/2020 6.3 Final ??? Non-HDL Cholesterol, POC 04/06/2020 292 mg/dL Final ??? Cholesterol Total, POC 04/06/2020 347 mg/dL Final Results for orders placed or performed in visit on 04/06/20 POCT lipid panel Result Value Ref Range Cholesterol, POC 347 mg/dL HDL, POC 55 mg/dL Triglycerides, POC 200 mg/dL LDL, Direct, POC 252 mg/dL Chol/HDL Ratio, POC 6.3 Non-HDL Cholesterol, POC 292 mg/dL Cholesterol Total, POC 347 mg/dL 08/18/18 Lexiscan Stress test: Conclusions: Global left ventricular function is normal. Left ventricular ejection fraction is 69 %. Myocardial perfusion imaging is normal. Negative EKG portion of stress test. Personally reviewed EKG, Echocardiogram, heart monitor 02/2017 occ PVC's, underlying SR, and bloodwork/lipids. ASSESSMENT Diagnoses and all orders for this visit: Coronary artery disease involving kanatak coronary artery of kanatak heart without angina pectoris (Primary) - nitroglycerin (NITROSTAT) 0.4 mg SL tablet; Place 1 tablet (0.4 mg total) under the tongue every 5 (five) minutes as needed for chest pain May repeat dose q 5 min, up to 3 doses total Labile hypertension Statin myopathy Nonrheumatic mitral valve regurgitation Dyslipidemia Chronic anticoagulation 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 (CMS/HCC) History of fall PLAN/RECOMMENDATIONS 1. Atypical sounding CP but she reports SLNTG responsiveness. She is to notify the office immediately with any new or concerning symptoms and if severe or unrelenting present to the nearest ER via EMS. Aggressive CAD risk modification counseling performed. Continue current medical therapy. Notify office immediately with anginal symptoms. -Stress test negative EF 69% 08/18/18 -If ongoing recurrence call office for LExiscan. If severe and unrelenting go to ER immediately viaEMS. -we discussed this at length. She is in agreement with plan of care. 2. Lipids personally reviewed 11/02/20 LDL 149 Rosuvastatin 10mg qhs. -she would like to resume statin therapy and observe tolerance. Check fasting lipid profile in 2 months. Call with any new symptoms or concerns. Will resume rosuvastatin 10 mg at bedtime. She will not inject herself so declined PCSK9 inhibitor therapy. She was counseled and is aware sheremains at significant risk for adverse events CVA/MS and she accepts. 3. Monitor for bleeding very closely. If falls/injury with bleeding or head injury go to ER immediately. 4. BP reasonably controlled. Continue Benazepril 10mg daily, states 20mg drops BP too much. Call with readings or any other concerns immediately including uncontrolled BP or worsening edema. Continueconsistent cardiovascular exercise, weight loss, medication compliance, and low-sodium diet. -Off HCTZ and on Lasix 20mg daily and feels it helped with edema but afraid to take due to falling. 5. Remains off BB given symptomatic bradycardia and hypotension. Given increase in palps and stableHR discussed resuming very low dose of BB if sxs persist. Contact office for further recommendations based upon her sxs. 6. Cont to follow up with vascular as scheduled. 7. PCP managing INR. Monitor for bleeding. Defer to PCP. Fatigue as described is transient and recurs same time of day then passes. This is not related to moderate MR or mild . Monitor clinically and by routine exam. Check next year or sooner as needed. Offered heart monitor to clarify changes in her heart rate, however, she is asymptomatic and so will monitor symptoms and communicate with the office should she change her mind or new concerns arise. She has a tendency toward anxiety and has been under tremendous stress due to recent fall and concern for infection. She is stabilizing and slowly feeling better. We will continue to observe and should she have any further questions or concerns she will call PCP and or our office for further recommendations as appropriate. Ambulate with extreme caution. Use walker. Rise slowly from seated position to avoid risk for falls and injuries. Over 50% of this visit counseling edema, CAD, HTN, lipids, medications, lifestyle modification. Follow up in the office in 2 months or sooner as needed. Thank you for allowing me the privilege of participating in the care this very pleasant patient. Please do not hesitate to contact me with any additional questions or concerns. Sonia Mclean MD, [facility] documented in this encounter Plan of Treatment Not on file documented as of this encounter Procedures Procedure Name Priority Date/Time Associated Diagnosis Comments POCT LIPID PANEL Routine 11/02/2020 1:47 PM CDT Coronary artery disease involving kanatak coronary artery of kanatak heart without angina pectoris documented in this encounter Results * POCT lipid panel (11/02/2020 1:47 PM CDT) Cholesterol, POC 216 mg/dL Comment:GLU = 139 HDL, POC 45 mg/dL Triglycerides, POC 110 mg/dL LDL Cholesterol POC 149 mg/dL Chol/HDL Ratio, POC 4.8 Non-HDL Cholesterol, POC 171 mg/dL Cholesterol Total, POC 216 mg/dL Capillary blood 11/02/2020 1 :47 PM CDT Ravinder Mclean MD POINT OF CARE TEST ORDER MALOU Final Result documented in this encounter Visit Diagnoses Diagnosis Coronary artery disease involving kanatak coronary artery of kanatak heart without angina pectoris- Primary Labile hypertension Statin myopathy Toxic myopathy Nonrheumatic mitral valve regurgitation Dyslipidemia Other and unspecified hyperlipidemia Chronic anticoagulation Encounter for long-term (current) use of anticoagulants 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 (HCC) History of fall Personal history of fall documented in this encounter Discontinued Medications Medication Sig Discontinue Reason Start Date End Da te nitroglycerin (NITROSTAT) 0.4 mg SL tabletIndications:Aviles ry artery disease involving kanatak coronary artery of kanatak heart without angina pectoris Place 1 tablet (0.4 mg total) under the tongue every 5 (five) minutes as needed for chest pain. May repeat dose q 5 min, up to 3 doses total Reorder 05/12/2018 11/02/2020 documented as of this encounter Care Teams Client Professional Relationship Specialty Start Date End Date Sixto Terrazas MD PCP - General 09/21/16 05/01/22 documented as of this encounter
--- OUTSIDE RECORDS SUMMARY | 2024-06-08 20:54 | XMS_ITS | Encounter Summary ---
Author Organization [facility] Address [address] [place] [address] Care Team Providers Care Mend Worker Name Role Phone Sixto Terrazas MD Primary Care Provider [phone] Reason for Visit * Reason Comments Follow-up 4 mo f/u Coronary Artery Disease Palpitations Encounter Details Date Type Department Care Team (Late st Contact Info) Description 02/09/2022 9:00 AM CDT Office Visit [facility] Cardiology [address] [place] [address] Ravinder Mclean MD [address] [address] [place] [address] Coronary artery disease involving wrangell coronary artery of wrangell heart without angina pectoris (Primary Dx); Labile hypertension; Palpitations; Localized edema; Mixed hyperlipidemia; Statin myopathy; 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 (HCC); Chronic anticoagulation; History of fall Social History Tobacco Use Types Packs/Day Years Used Date Smoking Tobacco: Never Smokeless Tobacco: Never Alcohol Use Standard Drinks/Week Comments Yes 0 (1 standard drink = 0.6 oz pur e alcohol) PHQ-2 Answer Date Recorded PHQ-2 Score 1 05/28/2019 Comments Unknown Sex and Gender Information Value Date Recorded Sex Assigned at Not on file 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 Gender Identity Not on file Sexual Orientation Not on file documented as of this encounter Last Filed Vital Signs Vital Sign Reading Time Taken Comments Blood Pressure 138/70 02/09/2022 8:55 AM CDT Pulse 82 02/09/2022 8:55 AM CDT Temperature - - Respiratory Rate - - Oxygen Saturation 97% 02/09/2022 8:55 AM CDT Inhaled Oxygen Concentration - - Weight 72.5 kg (159 lb 14.4 oz) 02/09/2022 8:55 AM CDT Height 165.1 cm (5' 5 ) 02/09/2022 8:55 AM CDT Body Mass Index 26.61 02/09/2022 8:55 AM CDT documented in this encounter Ordered Prescriptions Prescription Sig Dispense Quantity Refills Last Filled Start Date End Date benazepriL (LOTENSIN) 10 mg tablet Take 1 tablet (10 mg total) by mouth daily 90 tablet 3 02/09/2022 02/01/2023 documented in this encounter Progress Notes * Ravinder Mclean MD - 02/09/2022 9:00 AM CDT [facility] DATE OF VISIT: 02/09/2022 CHIEF COMPLAINT Chief Complaint Patient presents with ??? Follow-up 4 mo f/u ??? Coronary Artery Disease ??? Palpitations HPI Linda Garza is a 81 y.o. female with a PMHx of CAD LAD stent, h/o 80% RCA stenosis, HTN, dyslipidemia, chronic recurrent atypical CP, h/o LUE DVT on coumadin, chronic anxiety previously followed in [place]. 07/15/13 she returns today stating she has [...] noted in the 40's so sent to [place] ER by Dr. Terrazas EKG done HR [...] nearly completely resolved seeing Vascular surgery in [place] and is feeling better overall. She is [...] that is why she followed me from [place] and still chooses to see me and [...] pain. Going to see Vascular surgeon in [place] very soon and having vascular studies at [...] under significant stress Still seeing vascular in [place], wrapping legs, gets occ swelling. Still has [...] or just anxiety. Still seeing vascular in [place] told still needs wrap therapy but she [...] follow-up. [place] after that she [...] been okay. Blood pressures have been fine. ?? 03/20/21 CAT tele visit- she started the [...] issues but then she did not start. MEDICAL HISTORY Past Medical History: Diagnosis Date [...] 1 mg tablet aspirin 81 mg tablet furosemide (LASIX) 20 mg tablet nitroglycerin (NITROSTAT) 0.4 mg SL tablet rosuvastatin (CRESTOR) 10 mg tablet warfarin (COUMADIN) 3 mg tablet benazepriL (LOTENSIN) 10 mg tablet benazepriL (LOTENSIN) 10 mg tablet ALLERGIES Allergies Allergen Reactions ??? Lezgyfi-Sfu-Rps Reductase Inhibitors Muscle pain ??? Prednisone ??? Propoxyphene-Acetaminophen REVIEW OF SYSTEMS Review of Systems Constitutional: Positive for malaise/fatigue and weight gain. Negative [...] for environmental allergies. PHYSICAL EXAM Vitals BP 138/70 (BP Location: Right arm, Patient Position: Sitting) Pulse 82 Ht 165.1 cm (5' 5 ) Wt 72.5 kg (159 lb 14.4 oz) SpO2 97% BMI 26.61 kg/m?? Weight: 72.5 kg (159 lb 14.4 oz) Height: 165.1 cm (5' 5 ) Body mass index is 26.61 kg/m??. Physical Exam Vitals reviewed. Constitutional: General: She is not in acute distress. Appearance: Normal appearance. She is well-developed. She is not diaphoretic. Comments: Wearing a mask HENT: Head: Normocephalic and atraumatic. Right Ear: External ear normal. Left Ear: External ear normal. Nose: Nose normal. Mouth/Throat: Dentition: Normal dentition. Eyes: General: Lids are normal. No scleral icterus. Conjunctiva/sclera: Conjunctivae normal. Neck: Thyroid: No thyromegaly. Vascular: Normal carotid pulses. No carotid bruit, hepatojugular reflux or JVD. Trachea: No tracheal deviation. Cardiovascular: Rate and Rhythm: Normal rate and regular rhythm. Pulses: Normal pulses and intact distal pulses. Heart sounds: S1 normal and S2 [...] LE edema compression stocking 1+ RLE edema Lymphadenopathy: Cervical: No cervical adenopathy. Skin: General: [...] visit with results is: Office Visit on 03/13/2021 Component Date Value Ref Range Status ??? Cholesterol, POC 03/13/2021 200 mg/dL Final ??? HDL, POC 03/13/2021 43 mg/dL Final ??? Triglycerides, POC 03/13/2021 141 mg/dL Final ??? LDL, Direct, POC 03/13/2021 128 mg/dL Final ??? Chol/HDL Ratio, POC 03/13/2021 4.6 Final ??? Non-HDL Cholesterol, POC 03/13/2021 157 mg/dL Final ??? Cholesterol Total, POC 03/13/2021 200 mg/dL Final Results for orders placed or performed in visit on 03/13/21 POCT lipid panel Result Value Ref Range Cholesterol, POC 200 mg/dL HDL, POC 43 mg/dL Triglycerides, POC 141 mg/dL LDL, Direct, POC 128 mg/dL Chol/HDL Ratio, POC 4.6 Non-HDL Cholesterol, POC 157 mg/dL Cholesterol Total, POC 200 mg/dL 08/18/18 Lexiscan Stress test: Conclusions: Global [...] for this visit: Coronary artery disease involving wrangell coronary artery of wrangell heart without angina pectoris (Primary) Labile hypertension - TSH reflex to free T4; Future - Basic metabolic panel; Future - CBC with auto differential; Future Palpitations - TSH reflex to free T4; Future - Basic metabolic panel; Future - CBC with auto differential; Future Localized edema Mixed hyperlipidemia Statin myopathy 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 (HCC) Chronic anticoagulation History of fall Other orders - benazepriL (LOTENSIN) 10 mg tablet; Take 1 tablet (10 mg total) by mouth daily PLAN/RECOMMENDATIONS 1. No CP, but has been previously SLNTG responsive. She is to notify the office immediately with any new or concerning symptoms and if severe or unrelenting present to the nearest ER via EMS. Aggressive CAD risk modification counseling performed. Continue current medical therapy. Notify office immediately with anginal symptoms. -Stress test negative EF 69% 08/18/18 -If ongoing recurrence call office for [place]. If severe and unrelenting go to ER immediately viaEMS. She states she feels okay in general in this regard. -we discussed this at length. She is in agreement with plan of care. 2. Lipids personally reviewed 03/13/21 LDL 128, goal LDL<70. Rosuvastatin 10mg qhs. -she would like to resume statin therapy and observe tolerance. Check fasting lipid profile in 2 months. Call with any new symptoms or concerns. Continue rosuvastatin 10 mg at bedtime. Previously declined PCSK9 inhibitor therapy due to inability to inject herself. 3. BP controlled goal <140/90mmHg. Continue Benazepril 10mg daily, states 20mg drops BP too much. Call with readings or any other concerns immediately including uncontrolled BP or worsening edema.Continue consistent cardiovascular exercise, weight loss, medication compliance, and low-sodium diet. -Taking Lasix 20 mg daily but some days only takes half tablet for edema. Caution to avoid risk forfalls and injuries. 4. Remains off BB given h/o symptomatic bradycardia and hypotension but now complaining of heart pounding but HR overall not alarming. Given palpitations and feeling cold will check TSH. If sxs persist Holter monitor advised. If abnormal will defer to PCP for further management. Check BMP and CBC. R ecommendations to follow. 5. 07/2021 Echo mod LVH EF 70% borderline , trivial MR, RVSP 41mmHg. MR much improved from 2020 Echo. Explained natural history and progression, not an issue, will monitor. 6. PCP managing INR. Monitor for bleeding. [...] additional questions or concerns. Sonia Mclean MD, FACC documented in this encounter Miscellaneous Notes * Addendum Note - Antonia Caballero MA - 02/09/2022 9:00 AM CDTAddended by: ANTONIA CABALLERO on: 05/01/2022 04:44 PM Modules accepted: Orders E AGENT documented in this encounter Plan of Treatment Scheduled Orders Name Type Priority Associated Diagnoses Orde r Schedule Basic metabolic panel Lab Routine Labile hypertension Palpitations Expected: 02/09/2022, Expires: 02/09/2023 documented as of this encounter Visit Diagnoses Diagnosis Coronary artery disease involving wrangell coronary artery of wrangell heart without angina pectoris- Primary Labile hypertension Palpitations Localized edema Edema Mixed hyperlipidemia Statin myopathy Toxic myopathy 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 (HCC) Chronic anticoagulation Encounter for long-term (current) use of anticoagulants History of fall Personal history of fall documented in this encounter Discontinued Medications Medication Sig Discontinue Reason Start Date End Da te benazepriL (LOTENSIN) 10 mg tablet Take 1 tablet (10 mg total) by mouth daily Reorder 07/25/2021 02/09/2022 documented as of this encounter Care Teams Mend Worker Relationship Specialty Start Date End Date Sixto Terrazas MD PCP - General 09/21/16 05/01/22 documented as of this encounter
--- OUTSIDE RECORDS SUMMARY | 2024-06-08 20:54 | XMS_ITS | Encounter Summary ---
Author Organization [facility] Address [address] [place] [address] Care Team Providers Care Hot Plate Plywood Press Feeder Name Role Phone Sixto Lund MD Primary Care Provider [phone] Encounter Details Date Type Department Care Team (Late st Contact Info) Description 02/13/2019 Telephone [facility] [address] [address] [address] [place] [address] Raivnder Mclean MD [address] [place] [address] [address] [place] [address] Social History Tobacco Use Types Packs/Day Years Used Date Smoking Tobacco: Never Smokeless Tobacco: Never Alcohol Use Standard Drinks/Week Comments Yes 0 (1 standard drink = 0.6 oz pur e alcohol) Comments Unknown Sex and Gender Information Value Date Recorded Sex Assigned at Not on file 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 Mclean regarding CXR, CXR looks fine. No acute issues, fluid, or infiltrates. LMOM with results. documented in this encounter Plan of Treatment Not on file documented as of this encounter Visit Diagnoses Not on filedocumented in this encounter Care Teams Hot Plate Plywood Press Feeder Relationship Specialty Start Date End Date Sixto Lund MD PCP - General 09/21/16 05/01/22 documented as of this encounter
--- OUTSIDE RECORDS SUMMARY | 2024-06-08 20:54 | XMS_ITS | Encounter Summary ---
Author Organization [facility] Healthcare Address [address] [place] [address] Care Team Providers Care Remote Sensing Engineer Name Role Phone Jose A Lakhani Primary Care Provider Reason for Referral * Cardiology (Routine) - Closed Specialty Diagnoses / Procedures Referred By Contchantal t Referred To Contact Diagnoses Nonrheumatic aortic valve stenosis Coronary artery disease involving crow coronary artery of crow heart without angina pectoris Primary hypertension Procedures Transthoracic Echo (TTE) Complete W Doppler/CF Roosevelt Payan MD [address] [place] [address] Phone: tel: fax: [facility] Cardiology [address] [place] [address] Phone: tel: fax: Referral ID Status Reason Start Date Expiration Date Visits Re quested Visits Authorized [id number] Closed 04/20/2024 05/20/2025 1 1 Reason for Visit * Reason Comments Follow-up Transferring from Dr Nelida Mclean. [place] [facility] 12/24/23 Dx: weakness and altered mental status. Coronary Artery Disease Hx: DVT Encounter Details Date Type Department Care Team (Late st Contact Info) Description 04/20/2024 11:00 AM CDT Office Visit [facility] Cardiology [address] [place] [address] Roosevelt Payan MD [address] [place] [address], [place] [address] Nonrheumatic aortic valve stenosis (Primary Dx); Mixed hyperlipidemia; Coronary artery disease involving crow coronary artery of crow heart without angina pectoris; Primary hypertension Social History Tobacco Use Types Packs/Day Years Used Date Smoking Tobacco: Never Smokeless Tobacco: Never Alcohol Use Standard Drinks/Week Comments Yes 0 (1 standard drink = 0.6 oz pur e alcohol) PHQ-2 Answer Date Recorded PHQ-2 Score 1 05/28/2019 Comments Unknown Sex and Gender Information Value Date Recorded Sex Assigned at Not on file Legal Sex 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 OF SOFTWARE 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 CARDIOLOGY DATE OF VISIT: 04/20/2024 CHIEF COMPLAINT Chief Complaint Patient presents with Follow-up Transferring from Dr. Mclean. [place] [facility] 12/24/23 Dx: weakness and altered mental status. Coronary Artery Disease Hx: DVT HPI Linda Garza is a 83 y.o. female who is a former patient of Dr. Mclean. Past history of 3 x 18 and a 3 x 12 Promus stents to mid-distal LAD in 2009, history of 80% RCA stenosis in 2009, hypertension, dyslipidemia, history of left upper extremity DVT , anxiety. She was hospitalized December with generalized weakness altered mental status and was treated for low sodium, low potassium and fluid restriction and treated for UTI with Macrobid. Comes for follow-up appointment. Now she takes sodium tablets, she feels cold all the time. She hasleft arm pain that is constant but no swelling. Worse when she moves her left arm. Denies chest pain, shortness of breath, dizziness or syncope. She has bilateral lower extremity edema wears compression stockings. She takes Lasix only as needed. Ambulates with a walker MEDICAL HISTORY Past Medical History: Diagnosis Date Cardiovascular disease Coronary Artery Disease HX OTHER MEDICAL Chronic Anxiety HX OTHER MEDICAL DVT: LUE Hypertension Hypertension Hypothyroidism Hypothyroidism Past Surgical History: Procedure Laterality Date OTHER SURGICAL HISTORY Coronary Stent Placement LAD stent Social History Tobacco Use Smoking status: Never Smokeless tobacco: Never Substance and Sexual Activity Drug use: Never Sexual activity: None Alcohol Use: Not on file Family History Problem Relation Age of Onset No Known Problems Mother No Known Problems Father MEDICATIONS Current Outpatient Medications Medication Sig Dispense Refill amLODIPine (NORVASC) 5 mg tablet Take 1 tablet (5 mg total) by mouth daily apixaban (ELIQUIS ORAL) Take 2.5 mg by mouth 2 (two) times a day aspirin 81 mg tablet Take 1 tablet (81 mg total) by mouth daily benazepriL (LOTENSIN) 10 mg tablet Take 1 tablet (10 mg total) by mouth daily cholecalciferol (VITAMIN D-3) 50,000 unit capsule Take 1 capsule (50,000 Units total) by mouth oncea week furosemide (LASIX) 20 mg tablet Take 1 tablet (20 mg total) by mouth daily 30 tablet 6 HYDROcodone-acetaminophen (NORCO) 5-325 mg per tablet Take by mouth every 8 (eight) hours as needed magnesium oxide 400 mg magnesium capsule Take 2 capsules by mouth daily nitroglycerin (NITROSTAT) 0.[address] 1 tablet (0.4 mg total) under the tongue every 5 (five) minutes as needed for chest pain May repeat dose q 5 min, up to 3 doses total 25 tablet 3 potassium chloride ER 20 mEq CR tablet Take 1 tablet (20 mEq total) by mouth daily rosuvastatin (CRESTOR) 10 mg tablet Take 1 tablet (10 mg total) by mouth daily 90 tablet 2 sodium chloride 1,000 mg tablet 1000 MG ORALLY EVERY 8 HOURS traZODone (DESYREL) 100 mg tablet Take 1 tablet (100 mg total) by mouth nightly venlafaxine XR (EFFEXOR-XR) 37.5 mg 24 hr capsule TAKE 1 CAPSULE BY MOUTH AT BEDTIME WITH FOOD No current facility-administered medications for this visit. ALLERGIES Allergies Allergen Reactions Bikbygt-Dos-Pvp Reductase Inhibitors Muscle pain Jono Inhibitors Unknown Amoxicillin Unknown Aspirin Unknown Ciprofloxacin Unknown Fesoterodine Unknown Prednisone Propoxyphene-Acetaminophen Sulfamethoxazole-Trimethoprim Unknown REVIEW OF SYSTEMS Review of Systems Constitutional: Positive for malaise/fatigue. Negative for chills and fever. HENT: Negative for congestion and sore throat. Eyes: Negative for blurred vision and double vision. Cardiovascular: Positive for leg swelling. Negative for chest pain, claudication, dyspnea on exertion, near-syncope, orthopnea, palpitations, paroxysmal nocturnal dyspnea and syncope. Respiratory: Negative for cough, hemoptysis, shortness of breath, snoring, sputum production and wheezing. Endocrine: Negative for cold intolerance and polyuria. Hematologic/Lymphatic: Negative for bleeding problem. Does not bruise/bleed easily. Skin: Negative for itching and rash. Musculoskeletal: Positive for joint pain. Negative for back pain and joint swelling. Gastrointestinal: Negative for abdominal pain, diarrhea, nausea and vomiting. Genitourinary: Negative for dysuria, frequency and hematuria. Neurological: Negative for focal weakness, headaches and light-headedness. Psychiatric/Behavioral: Negative for depression. The patient is not nervous/anxious. Allergic/Immunologic: Negative for environmental allergies and hives. PHYSICAL EXAM Vitals BP 122/50 (BP Location: Right arm, Patient Position: Sitting) Pulse 93 Ht 165.1 cm (5' 5 ) Wt 61.8 kg (136 lb 4.8 oz) SpO2 97% BMI 22.68 kg/m?? Body mass index is 22.68 kg/m??. Physical Exam Constitutional: General: She is not in acute distress. Appearance: She is well-developed. HENT: Head: Normocephalic and atraumatic. Right Ear: External ear normal. Left Ear: External ear normal. Eyes: General: No scleral icterus. Left eye: No discharge. Conjunctiva/sclera: Conjunctivae normal. Neck: Thyroid: No thyromegaly. Cardiovascular: Rate and Rhythm: Normal rate and regular rhythm. Heart sounds: Normal heart sounds. No murmur heard. No friction rub. No gallop. Pulmonary: Effort: Pulmonary effort is normal. No respiratory distress. Breath sounds: Normal breath sounds. No wheezing or rales. Chest: Chest wall: No tenderness. Abdominal: General: There is no distension. Palpations: Abdomen is soft. Tenderness: There is no abdominal tenderness. Musculoskeletal: General: No tenderness or deformity. Cervical back: Normal range of motion and neck supple. Right lower leg: Edema present. Left lower leg: Edema present. Skin: General: Skin is warm. Findings: No erythema or rash. Neurological: Mental Status: She is alert and oriented to person, place, and time. Motor: No abnormal muscle tone. Psychiatric: Mood and Affect: Mood normal. LABS AND OTHER DIAGNOSTIC TESTS No results found for: WBC , HGB , HCT , MCV , PLT Chemistry No results found for: SODIUM , POTASSIUM , CHLORIDE , CO2 , BUNSER , CREATININE , GLUCOSE No results found for: CALCIUM , ALKPHOS , AST , ALT , BILITOT Blood work December 2023 white cell count 11.2 K, hemoglobin 12.5, platelet count 233, serum creatinine0.6, sodium 127, potassium 4.3, normal liver enzymes. Monitor 2020 average heart rate 72, couple episodes of supraventricular tachycardia. [place] of PVCsand PACs less than 1%. No AFib. Echo two thousand twenty-two moderate LVH ejection fraction 68%, moderate MAC, mean gradient 3 mm Hg, mild aortic stenosis with a mean gradient 13 valve area 2 cm2, mild tricuspid regurgitation RVSP 41. ASSESSMENT Diagnoses and all orders for this visit: Nonrheumatic aortic valve stenosis (Primary) - Transthoracic Echo (TTE) Complete W Doppler/CF; Future Mixed hyperlipidemia Coronary artery disease involving crow coronary artery of crow heart without angina pectoris - Transthoracic Echo (TTE) Complete W Doppler/CF; Future Primary hypertension - Transthoracic Echo (TTE) Complete W Doppler/CF; Future PLAN/RECOMMENDATIONS In regards to aortic stenosis, mild on echo done 2021 however on exam today it is moderate to severe. Repeat echocardiogram to further assess. In regards to history of coronary artery disease with 2 stents to LAD 3 x 18 and 3 x 12 to mid-distal LAD 2009 with residual 80% stenosis RCA. Denies anginal symptoms at this time. Continue aspirin, statin. In regards to hypertension, blood pressure is controlled today 122/50, continue amlodipine. Continue benazepril Regards to history of DVT left upper extremity, continue apixaban 2.5 mg b.i.d.. In regards to bilateral lower extremity edema, repeat echocardiogram to further assess. Use Lasix only as needed for worsening lower extremity edema. Continue compression stockings My total encounter time on 04/20/2024 was 41 minutes which was spent in the activities documented in the note. This includes time spent prior to the visit and after the visit in direct care of the patient. This time does not include time spent in any separately reportable services. Follow up in the office in in 6 months. Roosevelt Payan MD documented in this encounter Plan of Treatment Not on file documented as of this encounter Results * TRANSTHORACIC ECHO (TTE) COMPLETE W DOPPLER/CF WO CONTRAST (04/30/2024 11:15 AM MANAGER OF SOFTWARE DEVELOPMENT) Anatomical Region Laterality Modality Ultrasound 04/30/2024 10:4 0 AM MANAGER OF SOFTWARE DEVELOPMENT Narrative 04/30/2024 12:55 PM MANAGER OF SOFTWARE DEVELOPMENT [facility] Cardiology [address] [address] [address] [facility] [address], [place] [address] P:[phone] P:[phone] Echocardiographic Report Patient Name: LINDA GARZA : [birth year]57 Study Date: 04/30/2024 10:40:14 AM Gender: F Tech: Location: [facility] Provider: ROOSEVELT PAYAN ?Height(Cm): 165 BSA: 1.68 Weight(Kg): 61.7 Heart Rate: 70 BP: 136 / 86 Quality: Good Order Provider: ROOSEVELT PAYAN PROCEDURES: Echocardiographic Report: Transthoracic echocardiogram with complete 2D, M-Mode, and color Doppler examination. With Strain Analysis. INDICATIONS: I35.0 Nonrheumatic aortic (valve) stenosis, I25.10 Atherosclerotic heart disease of crow coronary artery without angina pectoris, and I10 Essential (primary) hypertension. Measurements: 2D/M Mode ?Doppler Measurement ?Value ?Normal Range ?Measurement ?Value ?Normal Range LVIDd 2D ? 3.38 ? [ 3.80 - 5.20 ] cm ?CISCO Vmax ? 1.17 ? [ 2.00 - 4.00 ] cm2 LVIDs 2D ? 2.65 ? [ 2.20 - 3.50 ] cm ?AV Mean PG ? 23 ? mmHg LVPWd 2D ? 1.26 ? [ 0.60 - 0.90 ] cm ?AV Peak Tony ?3.07 ? [ 1.00 - 1.70 ] m/s IVSd 2D ?1.30 ? [ 0.60 - 0.90 ] cm ?AV Peak PG ? 38 ? mmHg LA Volume Index ?28 ? [ 16 - 34 ] cc/m2 ? AV VTI ? 78.26 ?cm LVOT Diam ?1.98 ?[ 1.70 - 2.10 ] cm LVOT Peak Tony ?1.17 ?[ 0.70 - 1.10 ] m/s LVOT VTI ? 27.50 ? cm MV E Peak Tony ?1.33 ?[ 0.60 - 1.30 ] m/s MV A Peak Tony ?1.71 ?[ 1.00 - 1.20 ] m/s MV Decel Time ?276 ? [ 104 - 258 ] msec TR Peak Tony ?2.43 ?[ 1.00 - 2.80 ] m/s TR Peak PG ? 24 ?mmHg Lateral E` ? 0.06 ?[ 0.10 - 0.15 ] m/s E` ? 0.08 ?m/s E/E` ? 21 Measurement ?Value ?Normal Range ?Measurement ?Value ?Normal Range 2D/M Mode ?Doppler - FINDINGS: Interpretation Site: Exam was interpreted at [facility]. Left Ventricle: Normal left ventricular size. Moderate concentric left ventricular hypertrophy. Hyperdynamic left ventricular function. No focal wall motion abnormalities. Impaired diastolic relaxation Grade I. Ejection fraction is visually estimated at >75 %. Ejection fraction is measured at 77 %. Global Longitudinal Strain is -21 %. GLS is normal. Right Ventricle: Normal right ventricular size. Normal right ventricular systolic function. Left Atrium: There is mild enlargement of left atrium. Right Atrium: The right atrium is normal in size. Atrial Septum: Normal atrial septum. Mitral Valve: Mitral valve leaflets appear mildly thickened. Moderate mitral annular calcification. Mild mitral valve regurgitation. There is no hemodynamically significant mitral stenosis by Doppler. Aortic Valve: Moderate aortic stenosis. Peak Velocity of 3.07 m/s. Mean gradient of 23.0 mmHg. Valve area of 1.17 cm2. Aortic cusps appear severely calcified. Trileaflet aortic valve. Trace aortic valve regurgitation. Tricuspid Valve: Normal appearance of the tricuspid valve. Normal right ventricular systolic pressure. Estimated peak RVSP is 30 mmHg. Mild tricuspid regurgitation. Pulmonic Valve: Normal appearance of the pulmonic valve. No pulmonic stenosis. Trivial regurgitation in the pulmonic valve. Pericardium: Normal pericardium with no significant pericardial effusion. Aorta: No aortic root dilation. Mild aortic root calcification. IVC: Normal size and normal respiratory collapse consistent with normal right atrial pressure (<5 mmHg). CONCLUSIONS: Normal left ventricular size. Moderate concentric left ventricular hypertrophy. Hyperdynamic left ventricular function. No focal wall motion abnormalities. Impaired diastolic relaxation Grade I. Ejection fraction is visually estimated at >75 %. Ejection fraction is measured at 77 %. Global Longitudinal Strain is -21 %. GLS is normal. There is mild enlargement of left atrium. Mitral valve leaflets appear mildly thickened. Moderate mitral annular calcification. Mild mitral valve regurgitation. Moderate aortic stenosis. Peak Velocity of 3.07 m/s. Mean gradient of 23.0 mmHg. Valve area of 1.17 cm2. Aortic cusps appear severely calcified. Trileaflet aortic valve. Trace aortic valve regurgitation. Mild tricuspid regurgitation. Normal appearance of the pulmonic valve. No pulmonic stenosis. Trivial regurgitation in the pulmonic valve. Normal sinus rhythm. Electronically Signed By: Tony Neville MD 2024-04-30 12:54:03 MANAGER OF SOFTWARE DEVELOPMENT Procedure Note Tony Neville MD - 04/30/2024 [facility] Medical Group Cardiology [address] [place] [address] [address] [facility] [address], [place] [address] P:[phone] P:[phone] Echocardiographic Report Patient Name: LINDA GARZA : 1940 Study Date: 04/30/2024 10:40:14 AM Gender: F Tech: Location: [facility] Provider: ROOSEVELT PAYAN Height(Cm): 165 BSA: 1.68 Weight(Kg): 61.7 Heart Rate: 70 BP: 136 / 86 Quality: Good Order Provider: ROOSEVELT PAYAN PROCEDURES: Echocardiographic Report: Transthoracic echocardiogram with complete 2D, M-Mode, and color Dopplerexamination. With Strain Analysis. INDICATIONS: I35.0 Nonrheumatic aortic (valve) stenosis, I25.10 Atherosclerotic heartdisease of crow coronary artery without angina pectoris, and I10 Essential(primary) hypertension. Measurements: 2D/M ModeDoppler Measurement Value Normal Range MeasurementValue Normal Range LVIDd 2D 3.38 [ 3.80 - 5.20 ] cm CISOC Vmax1.17 [ 2.00 - 4.00 ] cm2 LVIDs 2D 2.65 [ 2.20 - 3.50 ] cm AV Mean PG23 mmHg LVPWd 2D 1.26 [ 0.60 - 0.90 ] cm AV Peak Vel3.07 [ 1.00 - 1.70 ] m/s IVSd 2D 1.30 [ 0.60 - 0.90 ] cm AV Peak PG38 mmHg LA Volume Index 28 [ 16 - 34 ] cc/m2 AV VTI78.26 cm LVOT Diam 1.98 [ 1.70 - 2.10 ] cm LVOT Peak Tony 1.17 [ 0.70 - 1.10 ] m/s LVOT VTI 27.50 cm MV E Peak Tony 1.33 [ 0.60 - 1.30 ] m/s MV A Peak Tony 1.71 [ 1.00 - 1.20 ] m/s MV Decel Time 276 [ 104 - 258 ] msec TR Peak Tony 2.43 [ 1.00 - 2.80 ] m/s TR Peak PG 24 mmHg Lateral E` 0.06 [ 0.10 - 0.15 ] m/s E` 0.08 m/s E/E` 21 Measurement Value Normal Range MeasurementValue Normal Range 2D/M ModeDoppler - FINDINGS: Interpretation Site: Exam was interpreted at [facility]. Left Ventricle: Normal left ventricular size. Moderate concentric left ventricularhypertrophy. Hyperdynamic left ventricular function. No focal wall motionabnormalities. Impaired diastolic relaxation Grade I. Ejection fraction is visually estimated at>75 %. Ejection fraction is measured at 77 %. Global Longitudinal Strain is -21 %. GLS isnormal. Right Ventricle: Normal right ventricular size. Normal right ventricular systolicfunction. Left Atrium: There is mild enlargement of left atrium. Right Atrium: The right atrium is normal in size. Atrial Septum: Normal atrial septum. Mitral Valve: Mitral valve leaflets appear mildly thickened. Moderate mitral annularcalcification. Mild mitral valve regurgitation. There is no hemodynamically significantmitral stenosis by Doppler. Aortic Valve: Moderate aortic stenosis. Peak Velocity of 3.07 m/s. Mean gradient of 23.0mmHg. Valve area of 1.17 cm2. Aortic cusps appear severely calcified. Trileafletaortic valve. Trace aortic valve regurgitation. Tricuspid Valve: Normal appearance of the tricuspid valve. Normal right ventricularsystolic pressure. Estimated peak RVSP is 30 mmHg. Mild tricuspid regurgitation. Pulmonic Valve: Normal appearance of the pulmonic valve. No pulmonic stenosis. Trivialregurgitation in the pulmonic valve. Pericardium: Normal pericardium with no significant pericardial effusion. Aorta: No aortic root dilation. Mild aortic root calcification. IVC: Normal size and normal respiratory collapse consistent with normal rightatrial pressure (<5 mmHg). CONCLUSIONS: Normal left ventricular size. Moderate concentric left ventricularhypertrophy. Hyperdynamic left ventricular function. No focal wall motionabnormalities. Impaired diastolic relaxation Grade I. Ejection fraction is visually estimated at>75 %. Ejection fraction is measured at 77 %. Global Longitudinal Strain is -21 %. GLS isnormal. There is mild enlargement of left atrium. Mitral valve leaflets appear mildly thickened. Moderate mitral annularcalcification. Mild mitral valve regurgitation. Moderate aortic stenosis. Peak Velocity of 3.07 m/s. Mean gradient of 23.0mmHg. Valve area of 1.17 cm2. Aortic cusps appear severely calcified. Trileafletaortic valve. Trace aortic valve regurgitation. Mild tricuspid regurgitation. Normal appearance of the pulmonic valve. No pulmonic stenosis. Trivialregurgitation in the pulmonic valve. Normal sinus rhythm. Electronically Signed By: Tony Neville MD 2024-04-30 12:54:03 MANAGER OF SOFTWARE DEVELOPMENT Inderjitr Paulo Payan MD CV ECHO PROCEDURES F inal Result documented in this encounter Visit Diagnoses Diagnosis Nonrheumatic aortic valve stenosis- Primary Mixed hyperlipidemia Coronary artery disease involving crow coronary artery of crow heart without angina pectoris Primary hypertension Unspecified essential hypertension Nonrheumatic aortic valve stenosis Coronary artery disease involving crow coronary artery of crow heart without angina pectoris Primary hypertension Unspecified essential hypertension documented in this encounter Historical Medications * This list may reflect changes made after this encounter. amLODIPine (NORVASC) 5 mg tablet Take 1 tablet (5 mg total) by mouth daily venlafaxine XR (EFFEXOR-XR) 37.5 mg 24 hr capsule TAKE 1 CAPSULE BY MOUTH AT BEDTIME WITH FOOD traZODone (DESYREL) 100 mg tablet Take 1 tablet (100 mg total) by mouth nightly sodium chloride 1,000 mg tablet 1000 MG ORALLY EVERY 8 HOURS HYDROcodone-aceta minophen (NORCO) 5-325 mg per tablet Take by mouth every 8 (eight) hours as needed cholecalciferol (VITAMIN D-3) 50,000 unit capsule Take 1 capsule (50,000 Units total) by mouth once a week 04/10/2024 added in this encounter Care Teams Remote Sensing Engineer Relationship Specialty Start Date End Date Jose A Lakhani DO [address] [place] [address] PCP - General Family Medicine 05/15/23 documented as of this encounter
--- OUTSIDE RECORDS SUMMARY | 2024-06-08 20:54 | XMS_ITS | Encounter Summary ---
Author Organization [facility] Address [address] [place] [id number] Care Team Providers Care Body Component Engineer Name Role Phone Sixto Terrazas MD Primary Care Provider [phone] Reason for Visit * Reason Comments Follow-up 3mo CAD,HTN,Dyslipid emia, PAD, PVC,DVT Encounter Details Date Type Department Care Team (Late st Contact Info) Description 05/28/2019 10:00 AM COAGULATING OPERATOR Office Visit [facility] [address] [address] [address] [place] [id number] Codie Mathew NP [address] [place] [address] Dyslipidemia (Primary Dx); Statin intolerance; Coronary artery disease involving [place] coronary artery of [place] heart without angina pectoris; PAD (peripheral artery disease) ([facility]); History of DVT (deep vein thrombosis); Chronic anticoagulation Social History Tobacco Use Types Packs/Day Years Used Date Smoking Tobacco: Never Smokeless Tobacco: Never Alcohol Use Standard Drinks/Week Comments Yes 0 (1 standard drink = 0.6 oz pur e alcohol) PHQ-2 Answer Date Recorded PHQ-2 Score 1 05/28/2019 Comments Unknown Sex and Gender Information Value Date Recorded Sex Assigned at Not on file Legal Sex 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 COAGULATING OPERATOR Gender Identity Not on file Sexual Orientation Not on file documented as of this encounter Last Filed Vital Signs Vital Sign Reading Time Taken Comments Blood Pressure 110/68 05/28/2019 10:10 AM COAGULATING OPERATOR Pulse 77 05/28/2019 10:10 AM COAGULATING OPERATOR Temperature - - Respiratory Rate 16 05/28/2019 10:10 AM COAGULATING OPERATOR Oxygen Saturation 97% 05/28/2019 10:10 AM COAGULATING OPERATOR Inhaled Oxygen Concentration - - Weight 70.3 kg (155 lb) 05/28/2019 10:10 AM COAGULATING OPERATOR Height 165.1 cm (5' 5 ) 05/28/2019 10:10 AM COAGULATING OPERATOR Body Mass Index 25.79 05/28/2019 10:10 AM COAGULATING OPERATOR documented in this encounter Ordered Prescriptions Prescription Sig Dispense Quantity Refills Last Filled Start Date End Date rosuvastatin (CRESTOR) 10 mg tabletIndications: Dyslipidemia Take 1 tablet (10 mg total) by mouth daily 30 tablet 11 05/28/2019 12/24/2019 documented in this encounter Progress Notes * Codie Mathew NP - 05/28/2019 10:00 AM CST [facility] Date of Visit: 05/28/2019 Patient ID: Linda Garza [id number] Chief Complaint: Linda Garza is a 78 y.o. female who is an established patient of Dr. Mclean with a history of CAD, PAD, DVT on warfarin, returning for 3 month follow-up. History of Present Illness: Linda Garza is a 78 y.o. female with a PMHx of CAD LAD stent, h/o 80% RCA stenosis, HTN, dyslipidemia, chronic recurrent atypical CP, h/o LUE DVT on coumadin, chronic anxiety previously followed in [place]. 07/15/13 she returns today stating she has [...] noted in the 40's so sent to [place] ER by Dr. Terrazas EKG done HR [...] nearly completely resolved seeing Vascular surgery in [place] and is feeling better overall. She is [...] that is why she followed me from [place] and still chooses to see me and [...] pain. Going to see Vascular surgeon in [place] very soon and having vascular studies at [...] under significant stress Still seeing vascular in [place], wrapping legs, gets occ swelling. Still has [...] not hit head, did not lose consciousness. Records that I personally reviewed on the day of this visit include: (the interpretation is outlined in the HPI above) 02/10/[address] Mclean, 02/13/2019 chest x-ray report I have also reviewed: allergies, current medications, past family history, past medical history, past social history, past surgical history and problem list Review of Systems Constitution: Positive for diaphoresis and weight gain. Negative for fever, malaise/fatigue and weight loss. HENT: Negative for hearing loss. Eyes: Negative for visual disturbance. Cardiovascular: Positive for claudication, leg swelling and palpitations. Negative for chest pain, orthopnea, paroxysmal nocturnal dyspnea and syncope. Respiratory: Positive for shortness of breath. Negative for cough, hemoptysis, snoring and wheezing. Hematologic/Lymphatic: Does not bruise/bleed easily. Skin: Negative for poor wound healing and rash. Musculoskeletal: Positive for joint pain and myalgias. Gastrointestinal: Negative for heartburn, nausea and vomiting. Genitourinary: Negative for hematuria. Neurological: Negative for dizziness, headaches and light-headedness. Psychiatric/Behavioral: Positive for depression. The patient is not nervous/anxious. Vital Signs: BP 110/68 (BP Location: Left arm, Patient Position: Sitting) Pulse 77 Resp 16 Ht 165.1 cm (5'5 ) Wt 70.3 kg (155 lb) SpO2 97% BMI 25.79 kg/m?? Physical Exam Constitutional: She is oriented to person, place, and time. She appears well- developed and well-nourished. No distress. HENT: Head: Normocephalic and atraumatic. Nose: Nose normal. Mouth/Throat: Mucous membranes are normal. Eyes: Pupils are equal, round, and reactive to light. Conjunctivae and EOM are normal. No scleral icterus. Neck: Normal range of motion. No JVD present. No tracheal deviation present. Cardiovascular: Normal rate and regular rhythm. Murmur heard. Systolic murmur is present with a grade of 1/6. Pulses: Femoral pulses are 2+ on the right side and 1+ on the left side. Right thigh appears slightly larger than left thigh but no discoloration, pitting edema, or unusualcoloration. Both legs are warm to touch. Wearing left knee high compression sock. Pulmonary/Chest: Effort normal and breath sounds normal. No respiratory distress. Abdominal: Soft. Bowel sounds are normal. There is no tenderness. Musculoskeletal: Normal range of motion. General: No edema. Comments: Ambulates with a cane. Has soft wrap around right wrist. Neurological: She is alert and oriented to person, place, and time. Skin: Skin is warm and dry. Psychiatric: She has a normal mood and affect. Allergies Allergen Reactions ??? Ckgalpt-Nrg-Zca Reductase Inhibitors Muscle pain ??? Prednisone ??? Propoxyphene-Acetaminophen Current Outpatient Medications: ??? ALPRAZolam (XANAX) 1 mg tablet, take 1 tablet by oral route every day as needed (Patient takingdifferently: Take 1 mg by mouth 3 (three) times a day as needed. ), Disp: 0, Rfl: 0 ??? aspirin 81 mg tablet, Take 81 mg by mouth daily., Disp: , Rfl: ??? benazepril (LOTENSIN) 10 mg tablet, TAKE 1 TABLET BY MOUTH DAILY, Disp: 90 tablet, Rfl: 1 ??? escitalopram (LEXAPRO) 5 mg tablet, Take 5 mg by mouth daily., Disp: , Rfl: ??? hydroCHLOROthiazide (HYDRODIURIL) 25 mg tablet, TAKE 1 TABLET BY MOUTH DAILY, Disp: 90 tablet, Rfl: 1 ??? warfarin (COUMADIN) 3 mg tablet, Take 3 mg by mouth daily. Take as directed per After Visit Summary., Disp: , Rfl: ??? cephalexin (KEFLEX) 250 mg capsule, Take 250 mg by mouth daily., Disp: , Rfl: ??? clopidogrel (PLAVIX) 75 mg tablet, Take 75 mg by mouth daily, Disp: , Rfl: ??? nitroglycerin (NITROSTAT) 0.4 mg SL tablet, Place 1 tablet (0.4 mg total) under the tongue every 5 (five) minutes as needed for chest pain. May repeat dose q 5 min, up to 3 doses total, Disp: 25 tablet, Rfl: 3 ??? rosuvastatin (CRESTOR) 10 mg tablet, Take 1 tablet (10 mg total) by mouth daily, Disp: 30 tablet, Rfl: 11 Assessment: Diagnoses and all orders for this visit: Dyslipidemia (Primary) - rosuvastatin (CRESTOR) 10 mg tablet; Take 1 tablet (10 mg total) by mouth daily Statin intolerance Coronary artery disease involving [place] coronary artery of [place] heart without angina pectoris PAD (peripheral artery disease) ([facility]) History of DVT (deep vein thrombosis) Chronic anticoagulation Plan/Recommendations: She has a history of intolerance to simvastatin. She was then put on rosuvastatin and seemed to have tolerated it for a while, but then thought she was having problem the last few months. So she stopped it 2 months ago. I strongly encouraged her to try the rosuvastatin again, and she agrees. I toldher to call us if she thinks she has any problems and we will make an alternate plan. Coronary artery disease appears stable. She gets intermittent chest pain or palpitations that are associated with anxiety. She is s/p left iliac stent about 4 months ago. Subsequent imaging showed poor flow through the iliac stent. I encouraged her to contact her vascular surgeon for follow-up as soon as possible. On exam there is no signs or symptoms of limb ischemia and no lymphedema either. She has a history of DVT and remains on warfarin which is managed by her PCP. Counseling performed at this visit included bleeding risks associated with systemic oral anticoagulation and when to seekemergency care. Return to the office to see Dr. Mclean in 3-4 months. Call us sooner with questions or concerns. RASHAD Gil- Nurse Practitioner with [facility] This note is dictated and transcribed using [employer] Software. Freight Elevator Erector variancesmay occur. Despite proofreading, typographical errors may occur. ULATING OPERATOR documented in this encounter Plan of Treatment Not on file documented as of this encounter Visit Diagnoses Diagnosis Dyslipidemia- Primary Other and unspecified hyperlipidemia Statin intolerance Coronary artery disease involving [place] coronary artery of [place] heart without angina pectoris PAD (peripheral artery disease) ([facility]) Unspecified peripheral vascular disease History of DVT (deep vein thrombosis) Chronic anticoagulation Encounter for long-term (current) use of anticoagulants documented in this encounter Discontinued Medications Medication Sig Discontinue Reason Start Date End Da te rosuvastatin (CRESTOR) 10 mg tablet Take 1 tablet (10 mg total) by mouth daily Reorder 02/10/2019 05/28/2019 documented as of this encounter Care Teams Body Component Engineer Relationship Specialty Start Date End Date Sixto Terrazas MD PCP - General 09/21/16 05/01/22 documented as of this encounter
--- OUTSIDE RECORDS SUMMARY | 2024-06-08 20:54 | XMS_ITS | Encounter Summary ---
Author Organization [facility] Address [address] [place] [address] Care Team Providers Care Cna Hha Name Role Phone Sixto Terrazas MD Primary Care Provider [phone] Reason for Referral * Cardiology (Routine) - Closed Specialty Diagnoses / Procedures Referred By Contac t Referred To Contact Diagnoses Coronary artery disease involving hopland coronary artery of hopland heart without angina pectoris Labile hypertension Nonrheumatic mitral valve regurgitation Procedures Transthoracic Echo Complete W Doppler/CF Ravinder Mclean MD Phone: tel: fax: External Order Referral ID Status Reason Start Date Expiration Date Visits Re quested Visits Authorized [id number] Closed 06/21/2021 07/21/2022 1 1 ONS OFFICER Reason for Visit * Reason Comments Coronary Artery Disease Encounter Details Date Type Department Care Team (Latest Contact Info) Description 06/21/2021 9:45 AM WEAPONS OFFICER Office Visit [facility] Medical [facility] Cardiology [address] [place] [address] Ravinder Mclean MD [address] [facility] [address] [place], [place] [id number] Coronary artery disease involving hopland coronary artery of hopland heart without angina pectoris (Primary Dx); Labile hypertension; Nonrheumatic mitral valve regurgitation; Mixed hyperlipidemia; Statin myopathy; PVC (premature ventricular contraction); PAD (peripheral artery disease) (CMS/HCC) (HCC); History of fall; Chronic anticoagulation Social History Tobacco Use Types Packs/Day Years Used Date Smoking Tobacco: Never Smokeless Tobacco: Never Alcohol Use Standard Drinks/Week Comments Yes 0 (1 standard drink = 0.6 oz pur e alcohol) PHQ-2 Answer Date Recorded PHQ-2 Score 1 05/28/2019 Comments Unknown Sex and Gender Information Value Date Recorded Sex Assigned at Not on file Legal Sex 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 WEAPONS OFFICER Gender Identity Not on file Sexual Orientation Not on file documented as of this encounter Last Filed Vital Signs Vital Sign Reading Time Taken Comments Blood Pressure 136/72 06/21/2021 9:34 AM WEAPONS OFFICER Pulse 76 06/21/2021 9:34 AM WEAPONS OFFICER Temperature - - Respiratory Rate - - Oxygen Saturation 98% 06/21/2021 9:34 AM WEAPONS OFFICER Inhaled Oxygen Concentration - - Weight 70 kg (154 lb 6.4 oz) 06/21/2021 9:34 AM WEAPONS OFFICER Height 165.1 cm (5' 5 ) 06/21/2021 9:34 AM WEAPONS OFFICER Body Mass Index 25.69 06/21/2021 9:34 AM WEAPONS OFFICER documented in this encounter Ordered Prescriptions Prescription Sig Dispense Quantity Refills Last Filled Start Date End Date benazepriL (LOTENSIN) 10 mg tabletIndications: Labile hypertension Take 1 tablet (10 mg total) by mouth daily 90 tablet 3 06/21/2021 07/12/2021 documented in this encounter Progress Notes * Ravinder Mclean MD - 06/21/2021 9:45 AM CST [facility] DATE OF VISIT: 06/21/2021 CHIEF COMPLAINT Chief Complaint Patient presents with ??? Coronary Artery Disease HPI Linda Garza is a 80 y.o. 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 07/15/13 she returns today stating she has [...] noted in the 40's so sent to [facility] by Dr. Terrazas EKG done HR 55bpm. [...] nearly completely resolved seeing Vascular surgery in [place] and is feeling better overall. She is [...] that is why she followed me from [place] and still chooses to see me and [...] pain. Going to see Vascular surgeon in [place] very soon and having vascular studies at [...] under significant stress Still seeing vascular in [place], wrapping legs, gets occ swelling. Still has [...] right off bed and hit corner of [facility], bruised L upper arm and weigh of [...] or just anxiety. [place] told still needs wrap therapy but she [...] follow-up. [place] that she [...] it yesterday maybe 2- 3x/week on average. MEDICAL HISTORY Past Medical History: Diagnosis Date [...] mg tablet benazepriL (LOTENSIN) 10 mg tablet famotidine (PEPCID) 40 mg tablet nitroglycerin (NITROSTAT) 0.4 mg SL tablet rosuvastatin (CRESTOR) 10 mg tablet warfarin (COUMADIN) 3 mg tablet benazepriL (LOTENSIN) 10 mg tablet furosemide (LASIX) 20 mg tablet metoprolol tartrate (LOPRESSOR) 25 mg immediate release tablet ALLERGIES Allergies Allergen Reactions ??? Oaaysta-Gfa-Mtf Reductase Inhibitors Muscle pain ??? Prednisone ??? [...] for environmental allergies. PHYSICAL EXAM Vitals BP 136/72 (BP Location: Right arm, Patient Position: Sitting) Pulse 76 Ht 165.1 cm (5' 5 ) Wt 70 kg (154 lb 6.4 oz) SpO2 98% BMI 25.69 kg/m?? Weight: 70 kg (154 lb 6.4 oz) Height: 165.1 cm (5' 5 ) Body mass index is 25.69 kg/m??. Physical Exam Constitutional: General: She is not in acute distress. Appearance: She is well-developed. She is not diaphoretic. [...] present. Left lower leg: Edema present. Comments: 2+ L LE edema focal hematoma dorsum of L foot, tender to touch, no warmth or erythema Trace RLE edema Lymphadenopathy: Cervical: No cervical adenopathy. Skin: General: Skin is warm and dry. Coloration: Skin is not pale. Findings: No ecchymosis, erythema, petechiae or rash. Nails: There is no clubbing. Neurological: Mental Status: She is alert and oriented to person, place, and time. Cranial Nerves: No cranial nerve deficit. Motor: No abnormal muscle tone. Coordination: Coordination normal. Psychiatric: Speech: Speech normal. Behavior: Behavior normal. Behavior is cooperative. Judgment: Judgment normal. LABS AND OTHER DIAGNOSTIC [...] RVSP is 32 mmHg. Normal sinus rhythm. Personally reviewed EKG, Echocardiogram, heart monitor 02/2017 occ PVC's, underlying SR, and bloodwork/lipids. ASSESSMENT Diagnoses and all orders for this visit: Coronary artery disease involving hopland coronary artery of hopland heart without angina pectoris (Primary) - Transthoracic Echo Complete W Doppler/CF; Future Labile hypertension - benazepriL (LOTENSIN) 10 mg tablet; Take 1 tablet (10 mg total) by mouth daily - Transthoracic Echo Complete W Doppler/CF; Future Nonrheumatic mitral valve regurgitation - Transthoracic Echo Complete W Doppler/CF; Future Mixed hyperlipidemia Statin myopathy PVC (premature ventricular contraction) PAD (peripheral artery disease) (CMS/HCC) (HCC) History of fall Chronic anticoagulation PLAN/RECOMMENDATIONS 1. No recurrent atypical sounding CP, previously SLNTG responsive. She is to notify [...] care. 2. Lipids personally reviewed 03/13/21 LDL 128 Rosuvastatin 10mg qhs. -she would like to resume statin therapy and observe tolerance. Check fasting lipid profile in 2 months. Call with any new symptoms or concerns. Will resume rosuvastatin 10 mg at bedtime. She previously would not inject herself so declined PCSK9 inhibitor therapy. 3. BP marginally controlled goal <140/90mmHg. Continue Benazepril 10mg daily, states 20mg drops BP too much. Call with readings or any other concerns immediately including uncontrolled BP or worsening edema. Continue consistent cardiovascular exercise, weight loss, medication compliance, and low-sodium diet. -Off HCTZ and on Lasix 20mg daily and feels it helped with edema but afraid to take due to falling. 4. Remains off BB given symptomatic bradycardia and hypotension. Given increase in palps and stableHR discussed resuming very low dose of BB if sxs persist. Contact office for further recommendations based upon her sxs. 5. Follow up on moderate MR, repeat Echo prior to return visit. Need to monitor clinically, currently, asymptomatic. She agrees. 6. PCP managing INR. Monitor for bleeding. Defer to PCP for management in this regard as he is managing anticoagulation. She verbalized understanding and agrees to follow with PCP in this regard. -Monitor for bleeding very closely. If falls/injury with bleeding or head injury go to ER immediately. Over 50% of this visit counseling edema, CAD, HTN, lipids, medications, lifestyle modification. Follow up in the office in 4 months or sooner as needed. Thank you for allowing me the privilege of participating in the care this very pleasant patient. Please do not hesitate to contact me with any additional questions or concerns. Sonia Mclean MD, [facility] ONS OFFICER documented in this encounter Plan of Treatment Not on file documented as of this encounter Results * TRANSTHORACIC ECHO (TTE) COMPLETE W DOPPLER/CF WO CONTRAST (07/31/2021 11:00 AM WEAPONS OFFICER) Anatomical Region Laterality Modality Ultrasound 07/31/2021 9:23 AM WEAPONS OFFICER Narrative 07/31/2021 12:21 PM WEAPONS OFFICER [facility] Cardiology [address] [facility] [address], [place] [address] [address], [place] [address] P:[phone] P:[phone] Echocardiographic Report Patient Name: LINDA GARZA : 1940 Study Date: 07/31/2021 9:23:33 AM Gender: F Tech: Location: [place] Ref.Provider: RAVINDER MCLEAN Height(Cm): 165 BSA: 1.77 Weight(Kg): 69.85 Heart Rate: 89 BP: 128/76 Quality: Good Order Provider: RAVINDER MCLEAN Procedures: Echocardiographic Report: Transthoracic echocardiogram with complete 2D, M-Mode, and color Doppler examination. Indications: Coronary Artery Disease, Hypertension, and Mitral Regurgitation. Measurements: 2D/M Mode ?Doppler ? Measurement ?Value ?Normal Range ? Measurement ?Value ?Normal Range ? EF Mod ? 68 ?CISCO ?1.97 ? [ 2.00 - 4.00 ] cm2 ? LVIDd 2D ? 2.66 ? [ 3.90 - 5.30 ] cm ? AV Mean PG ? 13 ? mmHg ? LVIDs 2D ? 1.62 ? [ 2.30 - 3.90 ] cm ? AV Peak Tony ?2.34 ? m/s ? LVPWd 2D ? 1.52 ? [ 0.60 - 1.00 ] cm ? AV Peak PG ? 22 ? mmHg ? IVSd 2D ?1.44 ? [ 0.60 - 0.90 ] cm ? AV VTI ? 0.42 ? cm ? LA Dimension MM ?3.78 ? [ 2.70 - 3.80 ] cm ? LVOT Diam ?2.23 ? [ 1.70 - 2.10 ] cm ? AoR Diam MM ?2.76 ? [ 2.60 - 3.70 ] cm ? LVOT Peak Tony ?1.18 ? [ 0.70 - 1.10 ] m/s ? LA Volume Index ?18.00 ?[ 16.00 - 28.00 ] cc/m2 ?LVOT VTI ? 0.25 ? cm ? ACS MM ? 0.96 ? cm ? MV E Peak Tony ?0.75 ? [ 0.60 - 1.30 ] m/s ? MV A Peak Tony ?1.38 ? [ 0.40 - 0.80 ] m/s ? MV Mean PG ? 3 ?mmHg ? MV PHT ? 81 ? msec ? MVA PHT ?2.70 ? [ 2.00 - 4.00 ] cm2 ? MV Decel Time ?258 ?[ 150 - 200 ] msec ? PV Peak Tony ?0.84 ? [ 0.40 - 0.80 ] m/s ? TR Peak Tony ?2.87 ? [ 0.40 - 0.80 ] m/s ? TR Peak PG ? 33 ? mmHg ? RVSP ? 41.00 ?mmHg ? E' ? 0.09 ? E/E' ? 9 ? - Findings: Interpretation Site: Exam was interpreted at [facility]. Left Ventricle: Normal left ventricular systolic function. No focal wall motion abnormalities. Normal left ventricular size. Moderate concentric left ventricular hypertrophy. Impaired diastolic relaxation Grade I. Ejection fraction is measured at 68 %. Right Ventricle: Normal right ventricular size. Normal right ventricular systolic function. Left Atrium: The left atrium is normal in size. Right Atrium: The right atrium is normal in size. Atrial Septum: Normal atrial septum. Mitral Valve: Mitral valve leaflets appear moderately thickened. Moderate mitral annular calcification. Trivial regurgitation of the mitral valve. Mean gradient of 3.00 mmHg. Valve area of 2.7 cm2. Aortic Valve: Aortic valve not well visualized. Mild aortic stenosis. Peak gradient of 22.0 mmHg. Mean gradient of 13.0 mmHg. Valve area of 1.97 cm2. Aortic cusps appear moderately calcified. Probable trileaflet aortic valve, although not all leaflets are visualized. No aortic regurgitation. Tricuspid Valve: Normal appearance of the tricuspid valve. Mild pulmonary hypertension based on right ventricular systolic pressure. Estimated peak RVSP is 41 mmHg. Mild tricuspid regurgitation. Pulmonic Valve: Pulmonic valve not well visualized. Trivial regurgitation in the pulmonic valve. Pericardium: Pericardium not well visualized. Aorta: Aortic root not well visualized. No aortic root dilation. Moderate aortic root calcification. IVC: The IVC is not well visualized. Conclusions: Normal left ventricular systolic function. No [...] rhythm. Technically difficult study with limited views. Electronically Signed By: Sonia Mclean MD 2021-07-31 12:21:14 WEAPONS OFFICER CC: CC: Procedure Note Ravinder Mclean MD - 07/31/2021 [facility] Cardiology [address] [facility] [address], [place] [address] [address], [place] [address] P:[phone] P:[phone] Echocardiographic Report Patient Name: LINDA GARZAPatient ID: [id number] : [id number] Date: 07/31/2021 9:23:33 AM Gender: FAccession #: [id number] Tech: GMLocation: [place] Ref.Provider: Jonelle MCLEANight(Cm): 165 BSA: 1.77Weight(Kg): 69.85 Heart Rate: 89BP: 128/76 Quality: GoodOrder Provider: RAVINDER MCLEAN Procedures: Echocardiographic Report: Transthoracic echocardiogram with complete 2D, M-Mode, and color Dopplerexamination. Indications: Coronary Artery Disease, Hypertension, and Mitral Regurgitation. Measurements: 2D/M Mode Doppler Measurement Value Normal Range MeasurementValue Normal Range EF Mod 68 AVA1.97 [ 2.00 - 4.00 ] cm2 LVIDd 2D 2.66 [ 3.90 - 5.30 ] cm AV Mean PG 13mmHg LVIDs 2D 1.62 [ 2.30 - 3.90 ] cm AV Peak Vel2.34 m/s LVPWd 2D 1.52 [ 0.60 - 1.00 ] cm AV Peak PG 22mmHg IVSd 2D 1.44 [ 0.60 - 0.90 ] cm AV VTI0.42 cm LA Dimension MM 3.78 [ 2.70 - 3.80 ] cm LVOT Diam2.23 [ 1.70 - 2.10 ] cm AoR Diam MM 2.76 [ 2.60 - 3.70 ] cm LVOT Peak Vel1.18 [ 0.70 - 1.10 ] m/s LA Volume Index 18.00 [ 16.00 - 28.00 ] cc/m2 LVOT VTI0.25 cm ACS MM 0.96 cm MV E Peak Vel0.75 [ 0.60 - 1.30 ] m/s MV A Peak Vel1.38 [ 0.40 - 0.80 ] m/s MV Mean PG 3mmHg MV PHT 81msec MVA PHT2.70 [ 2.00 - 4.00 ] cm2 MV Decel Jrxq050 [ 150 - 200 ] msec PV Peak Vel0.84 [ 0.40 - 0.80 ] m/s TR Peak Vel2.87 [ 0.40 - 0.80 ] m/s TR Peak PG 33mmHg RVSP41.00 mmHg E'0.09 E/E' 9 - Findings: Interpretation Site: Exam was interpreted at [facility]. Left Ventricle: Normal left ventricular systolic function. No focal wall motionabnormalities. Normal left ventricular size. Moderate concentric left ventricular hypertrophy.Impaired diastolic relaxation Grade I. Ejection fraction is measured at 68 %. Right Ventricle: Normal right ventricular size. Normal right ventricular systolicfunction. Left Atrium: The left atrium is normal in size. Right Atrium: The right atrium is normal in size. Atrial Septum: Normal atrial septum. Mitral Valve: Mitral valve leaflets appear moderately thickened. Moderate mitral annularcalcification. Trivial regurgitation of the mitral valve. Mean gradient of 3.00 mmHg.Valve area of 2.7 cm2. Aortic Valve: Aortic valve not well visualized. Mild aortic stenosis. Peak gradient of22.0 mmHg. Mean gradient of 13.0 mmHg. Valve area of 1.97 cm2. Aortic cusps appearmoderately calcified. Probable trileaflet aortic valve, although not all leaflets arevisualized. No aortic regurgitation. Tricuspid Valve: Normal appearance of the tricuspid valve. Mild pulmonary hypertensionbased on right ventricular systolic pressure. Estimated peak RVSP is 41 mmHg. Mildtricuspid regurgitation. Pulmonic Valve: Pulmonic valve not well visualized. Trivial regurgitation in the pulmonicvalve. Pericardium: Pericardium not well visualized. Aorta: Aortic root not well visualized. No aortic root dilation. Moderate aorticroot calcification. IVC: The IVC is not well visualized. Conclusions: Normal left ventricular systolic function. No focal wall motionabnormalities. Normal left ventricular size. Moderate concentric left ventricular hypertrophy.Impaired diastolic relaxation Grade I. Ejection fraction is measured at 68 %. Mitral valve leaflets appear moderately thickened. Moderate mitral annularcalcification. Trivial regurgitation of the mitral valve. Mean gradient of 3.00 mmHg.Valve area of 2.7 cm2. Aortic valve not well visualized. Mild aortic stenosis. Peak gradient of22.0 mmHg. Mean gradient of 13.0 mmHg. Valve area of 1.97 cm2. Aortic cusps appearmoderately calcified. Probable trileaflet aortic valve, although not all leaflets arevisualized. No aortic regurgitation. Normal appearance of the tricuspid valve. Mild pulmonary hypertensionbased on right ventricular systolic pressure. Estimated peak RVSP is 41 mmHg. Mildtricuspid regurgitation. Normal sinus rhythm. Technically difficult study with limited views. Electronically Signed By: Sonia Mclean MD 2021-07-31 12:21:14 WEAPONS OFFICER CC: CC: Ravinder Mclean MD CV ECHO PROCEDURES Final Result documented in this encounter Visit Diagnoses Diagnosis Coronary artery disease involving hopland coronary artery of hopland heart without angina pectoris- Primary Labile hypertension Nonrheumatic mitral valve regurgitation Mixed hyperlipidemia Statin myopathy Toxic myopathy PVC (premature ventricular contraction) Other premature beats PAD (peripheral artery disease) (HCC) Unspecified peripheral vascular disease History of fall Personal history of fall Chronic anticoagulation Encounter for long-term (current) use of anticoagulants Coronary artery disease involving hopland coronary artery of hopland heart without angina pectoris Labile hypertension Nonrheumatic mitral valve regurgitation documented in this encounter Discontinued Medications Medication Sig Discontinue Reason Start Date End Da te metoprolol tartrate (LOPRESSOR) 25 mg immediate release tabletIndications:Palpita tions Take 0.5 tablets (12.5 mg total) by mouth 2 (two) times a day Hold if resting heart rate below 80 bpm 03/20/2021 06/21/2021 benazepriL (LOTENSIN) 10 mg tabletIndications:Labile hypertension Take 0.5 tablets (5 mg total) by mouth daily Reorder 05/11/2021 06/21/2021 documented as of this encounter Care Teams Cna Hha Relationship Specialty Start Date End Date Sixto Terrazas MD PCP - General 09/21/16 05/01/22 documented as of this encounter
--- OUTSIDE RECORDS SUMMARY | 2024-06-08 20:54 | XMS_ITS | Encounter Summary ---
Author Organization [facility] Address [address] [place] [address] Care Team Providers Care Ent Consultant Name Role Phone Sixto Terrazas MD Primary Care Provider [phone] Reason for Visit * Reason Comments Coronary Artery Disease 3 month f/u. Pul se was 57 at home then went back up to 72 Encounter Details Date Type Department Care Team (Late st Contact Info) Description 04/06/2020 11:15 AM CDT Office Visit [facility] Cardiology [address] [place] [address] Ravinder Mclean MD [address] [facility] [facility] [address] [place], [place] [id number] Coronary artery disease involving atka coronary artery of atka heart without angina pectoris (Primary Dx); Bradycardia; Labile hypertension; PAD (peripheral artery disease) (CMS/HCC); Palpitations; PVC (premature ventricular contraction); Statin myopathy; Dyslipidemia; Chronic anticoagulation; Anxiety Social History Tobacco Use Types Packs/Day Years Used Date Smoking Tobacco: Never Smokeless Tobacco: Never Alcohol Use Standard Drinks/Week Comments Yes 0 (1 standard drink = 0.6 oz pur e alcohol) PHQ-2 Answer Date Recorded PHQ-2 Score 1 05/28/2019 Comments Unknown Sex and Gender Information Value Date Recorded Sex Assigned at Not on file Legal Sex 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 Gender Identity Not on file Sexual Orientation Not on file documented as of this encounter Last Filed Vital Signs Vital Sign Reading Time Taken Comments Blood Pressure 130/68 04/06/2020 11:03 AM CDT Pulse 88 04/06/2020 11:03 AM CDT Temperature - - Respiratory Rate - - Oxygen Saturation 97% 04/06/2020 11:03 AM CDT Inhaled Oxygen Concentration - - Weight 68.6 kg (151 lb 4.8 oz) 04/06/2020 11:03 AM CDT Height 165.1 cm (5' 5 ) 04/06/2020 11:03 AM CDT Body Mass Index 25.18 04/06/2020 11:03 AM CDT documented in this encounter Progress Notes * Ravinder Mclean MD - 04/06/2020 11:15 AM CDT [facility] DATE OF VISIT: 04/06/2020 CHIEF COMPLAINT Chief Complaint Patient presents with ??? Coronary Artery Disease 3 month f/u. Pulse was 57 at home then went back up to 72 HPI Linda Garza is a 79 y.o. 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 07/15/13 she returns today stating she has [...] noted in the 40's so sent to [place] ER by Dr. Terrazas EKG done HR [...] nearly completely resolved seeing Vascular surgery in [place] and is feeling better overall. She is [...] that is why she followed me from [place] and still chooses to see me and [...] pain. Going to see Vascular surgeon in [place] very soon and having vascular studies at [...] under significant stress Still seeing vascular in [place], wrapping legs, gets occ swelling. Still has [...] stent was blocked on imaging. Saw Dr. Vasquez [facility] but not planning on intervention. Pt having [...] it past 2 months. Never misses diuretic. MEDICAL HISTORY Past Medical History: Diagnosis Date [...] mg tablet warfarin (COUMADIN) 3 mg tablet ALLERGIES Allergies Allergen Reactions ??? Umenaxn-Ozp-Aec Reductase Inhibitors Muscle pain ??? Prednisone ??? [...] for environmental allergies. PHYSICAL EXAM Vitals BP 130/68 (BP Location: Left arm, Patient Position: Sitting) Pulse 88 Ht 165.1 cm (5' 5 ) Wt 68.6 kg (151 lb 4.8 oz) SpO2 97% BMI 25.18 kg/m?? Weight: 68.6 kg (151 lb 4.8 oz) Height: 165.1 cm (5' 5 ) Body mass index is 25.18 kg/m??. Physical Exam Constitutional: She is oriented [...] or deformity. Comments: trace bilateral LE edema Lymphadenopathy: She has no [...] for this visit: Coronary artery disease involving atka coronary artery of atka heart without angina pectoris (Primary) Bradycardia Labile hypertension PAD (peripheral artery disease) ([facility]) Palpitations PVC (premature ventricular contraction) Statin myopathy Dyslipidemia Chronic anticoagulation Anxiety PLAN/RECOMMENDATIONS 1. No clear anginal symptoms. She is to notify the office immediately with any new or concerning symptoms and if severe or unrelenting present to the nearest ER via EMS. Aggressive CAD risk modification counseling performed. Continue current medical therapy. Notify office immediately with anginal symptoms. -Stress test negative EF 69% 08/18/18 2. Lipids personally reviewed LDL 252 markedly elevated on 2 months Rosuvastatin 10mg qhs. -she would like to resume statin therapy and observe tolerance. Check fasting lipid profile in 2 months. Call with any new symptoms or concerns. Will resume rosuvastatin 10 mg at bedtime. She will not inject herself so declined PCSK9 inhibitor therapy. She was counseled and is aware harmonyins at significant risk for adverse events CVA/PA and she accepts. 3. Monitor for bleeding [...] INR. Monitor for bleeding. Defer to PCP. Offered heart monitor to clarify changes in her heart rate, however, she is asymptomatic and so will monitor symptoms and communicate with the office should she change her mind or new concerns arise. Over 50% of this visit counseling edema, CAD, HTN, lipids, medications, lifestyle modification. Follow up in the office in 2 months or sooner as needed. Thank you for allowing me the privilege of participating in the care this very pleasant patient. Please do not hesitate to contact me with any additional questions or concerns. Sonia Mclean MD, [facility] documented in this encounter Plan of Treatment Not on file documented as of this encounter Procedures Procedure Name Priority Date/Time Associated Diagnosis Comments POCT LIPID PANEL Routine 04/06/2020 12:1 4 PM CDT Coronary artery disease involving atka coronary artery of atka heart without angina pectoris documented in this encounter Results * POCT lipid panel (04/06/2020 12:14 PM CDT) Cholesterol, POC 347 mg/dL Comment:GLU = 100 HDL, POC 55 mg/dL Triglycerides, POC 200 mg/dL LDL Cholesterol POC 252 mg/dL Chol/HDL Ratio, POC 6.3 Non-HDL Cholesterol, POC 292 mg/dL Cholesterol Total, POC 347 mg/dL Capillary blood 04/06/2020 1 2:14 PM CDT Ravinder Mclean MD POINT OF CARE TEST ORDER MALOU Final Result documented in this encounter Visit Diagnoses Diagnosis Coronary artery disease involving atka coronary artery of atka heart without angina pectoris- Primary Bradycardia Other specified cardiac dysrhythmias Labile hypertension PAD (peripheral artery disease) (HCC) Unspecified peripheral vascular disease Palpitations PVC (premature ventricular contraction) Other premature beats Statin myopathy Toxic myopathy Dyslipidemia Other and unspecified hyperlipidemia Chronic anticoagulation Encounter for long-term (current) use of anticoagulants Anxiety Anxiety state, unspecified documented in this encounter Care Teams Ent Consultant Relationship Specialty Start Date End Date Sixto Terrazas MD PCP - General 09/21/16 05/01/22 documented as of this encounter
--- OUTSIDE RECORDS SUMMARY | 2024-06-08 20:54 | XMS_ITS | Encounter Summary ---
Author Organization [facility] Address [address] [place] [address] Care Team Providers Care Green Jobs Trainer Name Role Phone Sixto Terrazas MD Primary Care Provider [phone] Reason for Visit * Reason Comments Follow-up CAD Encounter Details Date Type Department Care Team (Late st Contact Info) Description 08/23/2020 11:30 AM 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 Office Visit [facility] Cardiology [address] [facility] [address] [place] [id number] Codie Mathew NP [address] [facility] [address] [place] [address] Palpitations (Primary Dx); Fatigue, unspecified type; Moderate mitral valve regurgitation; Diastolic dysfunction without heart failure; Coronary artery disease involving [place] coronary artery of [place] heart without angina pectoris; PAD (peripheral artery disease) (CMS/[facility]); Localized edema Social History Tobacco Use Types Packs/Day Years Used Date Smoking Tobacco: Never Smokeless Tobacco: Never Alcohol Use Standard Drinks/Week Comments Yes 0 (1 standard drink = 0.6 oz pur e alcohol) PHQ-2 Answer Date Recorded PHQ-2 Score 1 05/28/2019 Comments Unknown Sex and Gender Information Value Date Recorded Sex Assigned at Not on file Legal Sex 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 Gender Identity Not on file Sexual Orientation Not on file documented as of this encounter Last Filed Vital Signs Vital Sign Reading Time Taken Comments Blood Pressure 162/78 08/23/2020 11:21 AM 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 Pulse 75 08/23/2020 11:21 AM 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 Temperature - - Respiratory Rate - - Oxygen Saturation 95% 08/23/2020 11:21 AM 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 Inhaled Oxygen Concentration - - Weight 71.2 kg (157 lb) 08/23/2020 11:21 AM 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 Height 165.1 cm (5' 5 ) 08/23/2020 11:21 AM 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 Body Mass Index 26.13 08/23/2020 11:21 AM 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 documented in this encounter Progress Notes * Codie Mathew, GUNJAN - 08/23/2020 11:30 AM CST Images from the original note were not included. [facility] Cardiology [address] [place] [address] Date of Visit: 08/23/2020 Patient ID: Linda Garza [id number] Chief Complaint: Linda Garza is a 79 y.o. female who is an established patient Dr. Mclean with CAD and PAD, PVCs. She is returning for 6-week follow-up after wearing an event monitor and having an echo. History of Present Illness: Linda Garza is a 79 y.o. 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 07/15/13 she returns today stating she has [...] noted in the 40's so sent to [place] ER by Dr. Terrazas EKG done HR [...] nearly completely resolved seeing Vascular surgery in [place] and is feeling better overall. She is [...] that is why she followed me from [place] and still chooses to see me and [...] pain. Going to see Vascular surgeon in [place] very soon and having vascular studies at [...] under significant stress Still seeing vascular in [place], wrapping legs, gets occ swelling. Still has [...] COVID vaccine but no luck so far. Records that I personally reviewed on the day of this visit include: (the interpretation is outlined in the HPI above) 07/12/2020 office note from myself, the event monitor report and echo report I have also reviewed: allergies, current medications, past family history, past medical history, past social history, past surgical history and problem list Review of Systems Constitution: Positive for diaphoresis and weight loss. Negative for fever, malaise/fatigue and weight gain. HENT: Negative for hearing loss. Eyes: Negative for visual disturbance. Cardiovascular: Positive for leg swelling. Negative for chest pain, claudication, dyspnea on exertion, orthopnea, palpitations, paroxysmal nocturnal dyspnea and syncope. Respiratory: Negative for cough, hemoptysis, shortness of breath, snoring and wheezing. Hematologic/Lymphatic: Bruises/bleeds easily. Skin: Negative for poor wound healing and rash. Musculoskeletal: Positive for myalgias. Negative for joint pain. Gastrointestinal: Negative for heartburn, nausea and vomiting. Genitourinary: Negative for hematuria. Neurological: Positive for dizziness. Negative for headaches and light-headedness. Psychiatric/Behavioral: Negative for depression. The patient is not nervous/anxious. Vital Signs: BP 162/78 (BP Location: Right arm, Patient Position: Sitting) Pulse 75 Ht 165.1 cm (5' 5 ) Wt71.2 kg (157 lb) SpO2 95% BMI 26.13 kg/m?? Physical Exam Constitutional: She is oriented to person, place, and time. She appears well- developed and well-nourished. No distress. HENT: Head: Normocephalic and atraumatic. Nose: Nose normal. Wearing a mask Eyes: Pupils are equal, round, and reactive to light. Conjunctivae and EOM are normal. No scleral icterus. Neck: No JVD present. No tracheal deviation present. Cardiovascular: Normal rate, regular rhythm and normal heart sounds. No murmur heard. Pulmonary/Chest: Effort normal and breath sounds normal. No respiratory distress. Abdominal: Soft. Bowel sounds are normal. There is no abdominal tenderness. Musculoskeletal: General: Edema present. Cervical back: Normal range of motion. Comments: Ambulating with cane. LLE trace edema Pt reports chronic lymphedema of right inner thigh but this was not examined Neurological: She is alert and oriented to person, place, and time. Skin: Skin is warm and dry. Left lower extremity skin is intact, no open wounds. Psychiatric: She has a normal mood and affect. Allergies Allergen Reactions ??? Fteikzh-Bmt-Mof Reductase Inhibitors Muscle pain ??? Prednisone ??? [...] DAILY, Disp: 90 tablet, Rfl: 3 ??? escitalopram (LEXAPRO) 5 mg tablet, Take 5 mg by mouth daily., Disp: , Rfl: ??? furosemide (LASIX) 20 mg tablet, Take [...] tablet (10 mg total) by mouth daily (Patient takingdifferently: Take 10 mg by mouth 3 (three) times a week ), Disp: 30 tablet, Rfl: 11 ??? warfarin (COUMADIN) 3 mg tablet, Take 3 mg by mouth daily. Take as directed per After Visit Summary., Disp: , Rfl: No results found for: POTASSIUM, BUNSER, CREATININE, CHOL, TRIG, LDL, LDLCALC, HDL 06/15/2020 CMP showed K 4.0, BUN 12, creatinine 0.8, normal AST, ALT, alk-phos. 07/12/2020 30 day event monitor, worn for 14 days CONCLUSIONS: Underlying sinus rhythm with brief atrial runs, rare PACs with one 28 beat run of SVT in which no symptoms were returned. 07/27/2020 echocardiogram Conclusions: Normal left ventricular systolic function. No [...] RVSP is 32 mmHg. Normal sinus rhythm. Assessment: Diagnoses and all orders for this visit: Palpitations (Primary) Fatigue, unspecified type Moderate mitral valve regurgitation Diastolic dysfunction without heart failure Coronary artery disease involving [place] coronary artery of [place] heart without angina pectoris PAD (peripheral artery disease) ([facility]/HCC) Localized edema Plan/Recommendations: An event monitor was placed at the last visit to assess her complaint of palpitations and getting an indicator of irregular heart rhythm on her blood pressure machine. Due to a poor signal, only 14 days of data were obtained but the underlying rhythm was sinus rhythm with some brief atrial runs that were asymptomatic. One symptoms submitted of shortness of breath was associated with sinus rhythm and a heart rate of 89 bpm. I gave the patient reassurance that no significant abnormalities were seen on the monitor. At the last visit we discussed her complaint of fatigue which was very bothersome to her. My impression is her fatigue is multifactorial, but I brought her back for a new echo to reassess LV function. The results were reviewed with the patient today and I explained that her systolic function is normal, she has mild diastolic dysfunction, but most notably she has moderate mitral valve regurgitation which could be contributing to the symptoms she has noticed of a decline in her stamina over the last few months. I explained that we will reassess this by repeating her echo in another year. The mitral valve regurgitation progresses to a severe degree, surgical repair may be an option, or perhapsa minimally invasive repair like the mitral valve clip. She has a history of coronary artery disease. She had some problems tolerating statins in the past,but has been able to tolerate rosuvastatin, and remains on aspirin 81 mg daily. She is not reporting any symptoms concerning for angina. For history of peripheral arterial disease, she has with the vascular surgeon next week. Her lower extremity edema has improved nicely with addition of furosemide 20 mg daily. Continue current dosage. Keep the previously scheduled follow-up appointment with Dr. Mclean in October. RASHAD Gil- Nurse Practitioner with [facility] Card[facility] This note is dictated and transcribed using [employer] Direct Software. Coating Machine Helper variancesmay occur. Despite proofreading, typographical errors may occur. LLMENT SERVICES VICE PRESIDENT documented in this encounter Plan of Treatment Not on file documented as of this encounter Visit Diagnoses Diagnosis Palpitations- Primary Fatigue, unspecified type Moderate mitral valve regurgitation Diastolic dysfunction without heart failure Coronary artery disease involving [place] coronary artery of [place] heart without angina pectoris PAD (peripheral artery disease) ([facility]) Unspecified peripheral vascular disease Localized edema Edema documented in this encounter Care Teams Green Jobs Trainer Relationship Specialty Start Date End Date Sixto Trerazas MD PCP - General 09/21/16 05/01/22 documented as of this encounter
--- OUTSIDE RECORDS SUMMARY | 2024-06-08 20:54 | XMS_ITS | Encounter Summary ---
Author Organization [facility] Address [address] [place] [address] Care Team Providers Care Brine Process Operator Name Role Phone Sixto Terrazas MD Primary Care Provider [phone] Reason for Visit * Reason Comments Follow-up 2 mo f/u Hypertension labile Chronic DVT Chest Pain Recent UTI was prescribed med t hat took care of it Encounter Details Date Type Department Care Team (Late st Contact Info) Description 01/02/2021 2:45 PM CDT Office Visit [facility] Cardiology [address] [facility] [address] [place] [address] Ravinder Mclean MD [address] [facility] [address] [place] [address] Coronary artery disease involving samish coronary artery of samish heart without angina pectoris (Primary Dx); Labile hypertension; Hematoma; Statin myopathy; Dyslipidemia; History of fall; PAD (peripheral artery disease) (CMS/HCC) (HCC); 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 (HCC); Chronic anticoagulation; Lipid screening Social History Tobacco Use Types Packs/Day Years Used Date Smoking Tobacco: Never Smokeless Tobacco: Never Alcohol Use Standard Drinks/Week Comments Yes 0 (1 standard drink = 0.6 oz pur e alcohol) PHQ-2 Answer Date Recorded PHQ-2 Score 1 05/28/2019 Comments Unknown Sex and Gender Information Value Date Recorded Sex Assigned at Not on file Legal Sex 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 Gender Identity Not on file Sexual Orientation Not on file documented as of this encounter Last Filed Vital Signs Vital Sign Reading Time Taken Comments Blood Pressure 138/80 01/02/2021 2:51 PM CDT Pulse 83 01/02/2021 2:51 PM CDT Temperature - - Respiratory Rate - - Oxygen Saturation 97% 01/02/2021 2:51 PM CDT Inhaled Oxygen Concentration - - Weight 72 kg (158 lb 11.2 oz) 01/02/2021 2:51 PM CDT Height 165.1 cm (5' 5 ) 01/02/2021 2:51 PM CDT Body Mass Index 26.41 01/02/2021 2:51 PM CDT documented in this encounter Progress Notes * Ravinder Mclean MD - 01/02/2021 2:45 PM CDT [facility] DATE OF VISIT: 01/02/2021 CHIEF COMPLAINT Chief Complaint Patient presents with ??? Follow-up 2 mo f/u ??? Hypertension labile ??? Chronic DVT ??? Chest Pain ??? Recent UTI was prescribed med that took care of it HPI Linda Garza is a 80 y.o. female with a PMHx of CAD LAD stent, h/o 80% RCA stenosis, HTN, dyslipidemia, chronic recurrent atypical CP, h/o LUE DVT on coumadin, chronic anxiety previously followed in [place]. 07/15/13 she returns today stating she has [...] noted in the 40's so sent to [place] ER by Dr. Terrazas EKG done HR [...] nearly completely resolved seeing Vascular surgery in [place] and is feeling better overall. She is [...] that is why she followed me from [place] and still chooses to see me and [...] pain. Going to see Vascular surgeon in [place] very soon and having vascular studies at [...] under significant stress Still seeing vascular in [place], wrapping legs, gets occ swelling. Still has [...] Had Echo mod MR, EF normal mod MRNelida Notes gets tired sleepy every day around [...] or just anxiety. Still seeing vascular in [place] told still needs wrap therapy but she [...] to contact her PCP or Vascular doctor. MEDICAL HISTORY Past Medical History: Diagnosis Date [...] mg tablet ALLERGIES Allergies Allergen Reactions ??? Hkcenjs-Qig-Yoe Reductase Inhibitors Muscle pain ??? Prednisone ??? [...] for environmental allergies. PHYSICAL EXAM Vitals BP 138/80 (BP Location: Left arm, Patient Position: Sitting) Pulse 83 Ht 165.1 cm (5' 5 ) Wt 72 kg (158 lb 11.2 oz) SpO2 97% BMI 26.41 kg/m?? Weight: 72 kg (158 lb 11.2 oz) Height: 165.1 cm (5' 5 ) Body mass index is 26.41 kg/m??. Physical Exam Constitutional: General: She is [...] Judgment normal. LABS AND OTHER DIAGNOSTIC TESTS Office Visit on 01/02/2021 Component Date Value Ref Range Status ??? Cholesterol, POC 01/02/2021 204 mg/dL Final ??? HDL, POC 01/02/2021 36 mg/dL Final ??? Triglycerides, POC 01/02/2021 252 mg/dL Final ??? LDL, Direct, POC 01/02/2021 118 mg/dL Final ??? Chol/HDL Ratio, POC 01/02/2021 5.7 Final ??? Non-HDL Cholesterol, POC 01/02/2021 168 mg/dL Final ??? Cholesterol Total, POC 01/02/2021 204 mg/dL Final Office Visit on 11/02/2020 Component Date Value Ref Range Status ??? Cholesterol, POC 11/02/2020 216 mg/dL Final ??? HDL, POC 11/02/2020 45 mg/dL Final ??? Triglycerides, POC 11/02/2020 110 mg/dL Final ??? LDL, Direct, POC 11/02/2020 149 mg/dL Final ??? Chol/HDL Ratio, POC 11/02/2020 4.8 Final ??? Non-HDL Cholesterol, POC 11/02/2020 171 mg/dL Final ??? Cholesterol Total, POC 11/02/2020 216 mg/dL Final Results for orders placed or performed in visit on 01/02/21 POCT lipid panel Result Value Ref Range Cholesterol, POC 204 mg/dL HDL, POC 36 mg/dL Triglycerides, POC 252 mg/dL LDL, Direct, POC 118 mg/dL Chol/HDL Ratio, POC 5.7 Non-HDL Cholesterol, POC 168 mg/dL Cholesterol Total, POC 204 mg/dL 08/18/18 Lexiscan Stress test: Conclusions: Global left ventricular function is normal. Left ventricular ejection fraction is 69 %. Myocardial perfusion imaging is normal. Negative EKG portion of stress test. Personally reviewed EKG, Echocardiogram, heart monitor 02/2017 occ PVC's, underlying SR, and bloodwork/lipids. ASSESSMENT Diagnoses and all orders for this visit: Coronary artery disease involving samish coronary artery of samish heart without angina pectoris (Primary) Labile hypertension Hematoma Statin myopathy Dyslipidemia History of fall PAD (peripheral artery disease) (CMS/HCC) 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 (CMS/HCC) Chronic anticoagulation Lipid screening - POCT lipid panel PLAN/RECOMMENDATIONS 1. Atypical sounding CP but she [...] harmonyins at significant risk for adverse events CVA/DE and she accepts. 3. Monitor for bleeding very closely. If falls/injury with bleeding or head injury go to ER immediately. 4. BP marginally controlled goal <140/90mmHg. Continue Benazepril [...] INR. Monitor for bleeding. Defer to PCP. Strongly advised to contact EVY re localized hematoma on L foot and get INR [facility]. Explained 20 minutes warm moist heat to foot, possible Jono wrapping may be recommended. Defer to PCP for management in this regard as he is managing anticoagulation. Monitor for bleeding. She verbalized understanding and agrees to follow with PCP in this regard. I do not have any of her prior INRs so cannot provide any recommendations what to do with the warfarin at this time and that she has not obtained an INR since October. Twelve lead EKG today personally reviewed and discussed sinus rhythm otherwise normal EKG 80 beats per minute NJ interval 156 milliseconds QRS 94 milliseconds QT corrected 457 millisecond Over 50% of this visit counseling edema, CAD, HTN, lipids, medications, lifestyle modification. Follow up in the office in 2 months or sooner as needed. Thank you for allowing me the privilege of participating in the care this very pleasant patient. Please do not hesitate to contact me with any additional questions or concerns. Sonia Mclean MD, [facility] documented in this encounter Miscellaneous Notes * Addendum Note - Antonia Caballero MA - 01/02/2021 2:45 PM CDTAddended by: ANTONIA CABALLERO on: 01/05/2021 08:21 AM Modules accepted: Orders documented in this encounter Plan of Treatment Not on file documented as of this encounter Procedures Procedure Name Priority Date/Time Associated Diagnosis Comments POCT LIPID PANEL Routine 01/02/2021 2:57 PM CDT Lipid screening ECG 12-LEAD Routine 01/02/2021 Coronary artery disease involving samish coronary artery of samish heart without angina pectoris documented in this encounter Results * POCT lipid panel (01/02/2021 2:57 PM CDT) Cholesterol, POC 204 mg/dL Comment:GLU = 95 HDL, POC 36 mg/dL Triglycerides, POC 252 mg/dL LDL Cholesterol POC 118 mg/dL Chol/HDL Ratio, POC 5.7 Non-HDL Cholesterol, POC 168 mg/dL Cholesterol Total, POC 204 mg/dL Capillary blood 01/02/2021 2 :57 PM CDT Ravinder Mclean MD POINT OF CARE TEST ORDER MALOU Final Result * ECG 12 lead (01/02/2021) us Ravinder Mclean MD ECG ORDERABLES Final Re sult documented in this encounter Visit Diagnoses Diagnosis Coronary artery disease involving samish coronary artery of samish heart without angina pectoris- Primary Labile hypertension Hematoma Contusion of unspecified site Statin myopathy Toxic myopathy Dyslipidemia Other and unspecified hyperlipidemia History of fall Personal history of fall PAD (peripheral artery disease) (HCC) Unspecified peripheral vascular disease 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 (HCC) Chronic anticoagulation Encounter for long-term (current) use of anticoagulants Lipid screening Screening for lipoid disorders documented in this encounter Care Teams Brine Process Operator Relationship Specialty Start Date End Date Sixto Terrazas MD PCP - General 09/21/16 05/01/22 documented as of this encounter
--- OUTSIDE RECORDS SUMMARY | 2024-06-08 20:54 | XMS_ITS | Encounter Summary ---
Author Organization [facility] Address [address] [place] [address] Care Team Providers Care Crm Functional Analyst Name Role Phone Sixto Lund MD Primary Care Provider [phone] Reason for Visit * Cardiology (Routine) - Closed Specialty Diagnoses / Procedures Referred By Contac t Referred To Contact Diagnoses Coronary artery disease involving cher-ae heights coronary artery of cher-ae heights heart without angina pectoris Labile hypertension Nonrheumatic mitral valve regurgitation Procedures Transthoracic Echo Complete W Doppler/CF Ravinder Mclean MD Phone: tel: fax: External Order Referral ID Status Reason Start Date Expiration Date Visits Re quested Visits Authorized [id number] Closed 06/21/2021 07/21/2022 1 1 Encounter Details Date Type Department Care Team (Latest Contact Info) Description 07/31/2021 10:15 AM [facility] Ancillary Procedure [facility] Cardiology [address] [place] [id number] Coronary artery disease involving cher-ae heights coronary artery of cher-ae heights heart without angina pectoris; Labile hypertension; Nonrheumatic mitral valve regurgitation Social History Tobacco Use Types Packs/Day Years Used Date Smoking Tobacco: Never Smokeless Tobacco: Never Alcohol Use Standard Drinks/Week Comments Yes 0 (1 standard drink = 0.6 oz pur e alcohol) PHQ-2 Answer Date Recorded PHQ-2 Score 1 05/28/2019 Comments Unknown Sex and Gender Information Value Date Recorded Sex Assigned at Not on file Legal Sex 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 [facility] Gender Identity Not on file Sexual Orientation Not on file documented as of this encounter Plan of Treatment Not on file documented as of this encounter Procedures Procedure Name Priority Date/Time Associated Diagnosis Comments TRANSTHORACIC ECHO (TTE) COMPLETE W DOPPLER/CF WO CONTRAST Routine 07/31/2021 11:00 AM [facility] Coronary artery disease involving cher-ae heights coronary artery of cher-ae heights heart without angina pectoris Labile hypertension Nonrheumatic mitral valve regurgitation documented in this encounter Results * TRANSTHORACIC ECHO (TTE) COMPLETE W DOPPLER/CF WO CONTRAST (07/31/2021 11:00 AM [facility]) Anatomical Region Laterality Modality Ultrasound 07/31/2021 9:23 AM [facility] Narrative 07/31/2021 12:21 PM [facility] Cardiology [address] [facility] [address], [place] [address] [address] [facility] [address], [place] [address] P:[phone] P:[phone] Echocardiographic Report Patient Name: LINDA GARZA : 9 Study Date: 07/31/2021 9:23:33 AM Gender: F Tech: Location: [place] Ref.Provider: RAVINDER MCLEAN Height(Cm): 165 BSA: 1.77 [...] Findings: Interpretation Site: Exam was interpreted at [facility]. Left Ventricle: Normal left ventricular systolic [...] Signed By: Sonia Mclean MD 2021-07-31 12:21:14 [facility] CC: CC: Procedure Note Ravinder Mclean MD - 07/31/2021 [facility] Cardiology [address] [facility] [address], [place] [address] [address] [facility] [address], [place] [address] P:[phone] P:[phone] Echocardiographic Report Patient Name: LINDA GARZAPatient ID: [id number] : [id number] Date: 07/31/2021 9:23:33 AM Gender: FAccession #: [id number] Tech: GMLocation: [place] Ref.Provider: RAVINDER MCLEANHeight(Cm): 165 BSA: 1.77Weight(Kg): 69.85 Heart Rate: 89BP: [...] 2.00 - 4.00 ] cm2 MV Decel [id number] [ 150 - 200 ] msec PV Peak Vel0.84 [ 0.40 - 0.80 ] m/s TR Peak Vel2.87 [ 0.40 - 0.80 ] m/s TR Peak PG 33mmHg RVSP41.00 mmHg E'0.09 E/E' 9 - Findings: Interpretation Site: Exam was interpreted at [facility]. Left Ventricle: Normal left ventricular systolic [...] Signed By: Sonia Mclean MD 2021-07-31 12:21:14 [facility] CC: CC: Ravinder Mclean MD CV ECHO PROCEDURES Final Result documented in this encounter Visit Diagnoses Diagnosis Coronary artery disease involving cher-ae heights coronary artery of cher-ae heights heart without angina pectoris Labile hypertension Nonrheumatic mitral valve regurgitation documented in this encounter Care Teams Crm Functional Analyst Relationship Specialty Start Date End Date Sixto Lund MD PCP - General 09/21/16 05/01/22 documented as of this encounter
--- OUTSIDE RECORDS SUMMARY | 2024-06-08 20:54 | XMS_ITS | Encounter Summary ---
Author Organization [facility] Address [address] [place] [address] [place] [address] Care Team Providers Care Die Casting Machine Setter Name Role Phone Sixto Lund MD Primary Care Provider [phone] Reason for Referral * Diagnostic Imaging (Routine) - Closed Specialty Diagnoses / Procedures Referred By Contac t Referred To Contact Procedures XR Chest Pa Lateral 2 Views [facility] [address] [place] [address] Phone: tel: fax: Referral ID Status Reason Start Date Expiration Date Visits Re quested Visits Authorized [id number] Closed 02/13/2019 08/24/2020 1 1 Encounter Details Date Type Department Care Team (Late st Contact Info) Description 02/13/2019 Orders Only [facility] [address] [facility] [address] [place] [address] Armani Hirsch MD [address] [place], [place] [id number] Social History Tobacco Use Types Packs/Day Years Used Date Smoking Tobacco: Never Smokeless Tobacco: Never Alcohol Use Standard Drinks/Week Comments Yes 0 (1 standard drink = 0.6 oz pur e alcohol) Comments Unknown Sex and Gender Information Value Date Recorded Sex Assigned at Not on file 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 Gender Identity Not on file Sexual Orientation Not on file documented as of this encounter Plan of Treatment Not on file documented as of this encounter Procedures Procedure Name Priority Date/Time Associated Diagnosis Comments XR CHEST PA LATERAL 2 VIEWS Schedule Routine, Read Routine (OP Routine) 02/13/2019 documented in this encounter Results * XR Chest Pa Lateral 2 Views (02/13/2019) Anatomical Region Laterality Modality Body, Chest N/A Radiographic Marion ging us Historical Provider MD GARCIA XR PROCEDURES Final R esult documented in this encounter Visit Diagnoses Not on filedocumented in this encounter Care Teams Die Casting Machine Setter Relationship Specialty Start Date End Date Sixto Lund MD PCP - General 09/21/16 05/01/22 documented as of this encounter
--- OUTSIDE RECORDS SUMMARY | 2024-06-08 20:54 | XMS_ITS | Encounter Summary ---
Author Organization [facility] Address [address] [place] [address] [place] [address] Care Team Providers Care Slabber Name Role Phone Sixto Lund MD Primary Care Provider [phone] Reason for Visit * Cardiology (Routine) - Closed Specialty Diagnoses / Procedures Referred By Stacie t Referred To Contact Diagnoses Edema, unspecified Fatigue, unspecified type Procedures Transthoracic Echo Complete W Doppler/CF Fermin Ruiz NP [address] [address] Phone: tel: fax: [facility] Referral ID Status Reason Start Date Expiration Date Visits Re quested Visits Authorized [id number] Closed 07/12/2020 08/11/2021 1 1 Encounter Details Date Type Department Care Team (Latest Contact Info) Description 07/27/2020 9:15 AM FISH HEADER Ancillary Procedure [facility] Cardiology [address] [address] Edema, unspecified ; Fatigue, unspecified type Social History Tobacco Use Types Packs/Day Years Used Date Smoking Tobacco: Never Smokeless Tobacco: Never Alcohol Use Standard Drinks/Week Comments Yes 0 (1 standard drink = 0.6 oz pur e alcohol) PHQ-2 Answer Date Recorded PHQ-2 Score 1 05/28/2019 Comments Unknown Sex and Gender Information Value Date Recorded Sex Assigned at Not on file 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 Sex 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 FISH 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 Gender Identity Not on file Sexual Orientation Not on file documented as of this encounter Last Filed Vital Signs Vital Sign Reading Time Taken Comments Blood Pressure - - Pulse - - Temperature 36.1 ??C (97 ??F) 07/27/2020 9:10 AM FISH HEADER Respiratory Rate - - Oxygen Saturation - - Inhaled Oxygen Concentration - - Weight - - Height - - Body Mass Index - - documented in this encounter Plan of Treatment Not on file documented as of this encounter Procedures Procedure Name Priority Date/Time Associated Diagnosis Comments TRANSTHORACIC ECHO (TTE) COMPLETE W DOPPLER/CF WO CONTRAST Routine 07/27/2020 10:17 AM FISH HEADER Edema, unspecified Fatigue, unspecified type documented in this encounter Results * TRANSTHORACIC ECHO (TTE) COMPLETE W DOPPLER/CF WO CONTRAST (07/27/2020 10:17 AM FISH HEADER) Anatomical Region Laterality Modality Ultrasound 07/27/2020 9:06 AM FISH HEADER Narrative 07/27/2020 7:52 PM FISH HEADER [facility] Cardiology [address] [facility] [address], [place] [address] [address] [facility] [address], [place] [address] P:[phone] P:[phone] Echocardiographic Report Patient Name: LINDA GARZA : 05-26-1941 Study Date: 07/27/2020 9:06:24 AM Gender: F Tech: Location: [place] Ref.Provider: JOSTIN Height(Cm): 165 BSA: 1.8 Weight(Kg): [...] Findings: Interpretation Site: Exam was interpreted at [facility]. Left Ventricle: Normal left ventricular systolic [...] rhythm. Electronically Signed By: Etelvina Whiting MD, [facility] 2020-07-27 19:52:32 FISH HEADER Procedure Note Etelvina Whiting MD - 07/27/2020 [facility] Cardiology [address] [facility] [address], [place] [address] [address] [facility] [address], [place] [address] P:[phone] P:[phone] Echocardiographic Report Patient Name: LINDA GARZAPatient ID: [id number] : [id number] Date: 07/27/2020 9:06:24 AM Gender: FAccession #: [id number] Tech: Location: [place] Ref.Provider: MATHURHeight(Cm): 165 BSA: 1.8Weight(Kg): 73.03 Heart Rate: 66BP: [...] 0.40 - 0.80 ] m/s MV Decel [id number] [ 150 - 200 ] msec PV Peak Vel0.87 [ 0.40 - 0.80 ] m/s TR Peak Vel2.43 [ 0.40 - 0.80 ] m/s TR Peak PG 24mmHg RVSP32.00 mmHg E'0.08 E/E' 9 Findings: Interpretation Site: Exam was interpreted at [facility]. Left Ventricle: Normal left ventricular systolic [...] rhythm. Electronically Signed By: Etelvina Whiting MD, [facility] 2020-07-27 19:52:32 FISH HEADER Fermin Ruiz NP CV ECHO PROCEDURES Final Result documented in this encounter Visit Diagnoses Diagnosis Edema, unspecified Fatigue, unspecified type documented in this encounter Care Teams Slabber Relationship Specialty Start Date End Date Sixot Lund MD PCP - General 09/21/16 05/01/22 documented as of this encounter
--- OUTSIDE RECORDS SUMMARY | 2024-06-08 20:54 | XMS_ITS | Encounter Summary ---
Author Organization [facility] Healthcare Address [address] [place] [address] Care Team Providers Care Contract Assistant Name Role Phone Jose A Lakhani Primary Care Provider Reason for Visit * Cardiology (Routine) - Closed Specialty Diagnoses / Procedures Referred By Contac t Referred To Contact Diagnoses Nonrheumatic aortic valve stenosis Coronary artery disease involving [place] coronary artery of [place] heart without angina pectoris Primary hypertension Procedures Transthoracic Echo (TTE) Complete W Doppler/CF Roosevelt Payan MD [address] [address] Phone: tel: fax: [facility] Cardiology [address] [place] [phone] Phone: tel: fax: Referral ID Status Reason Start Date Expiration Date Visits Re quested Visits Authorized [id number] Closed 04/20/2024 05/20/2025 1 1 Encounter Details Date Type Department Care Team (Latest Contact Info) Description 04/30/2024 10:15 AM CHIEF DEVELOPMENT OFFICER Ancillary Procedure [facility] Cardiology [address] [place] [phone] Nonrheumatic aortic valve stenosis; Coronary artery disease involving [place] coronary artery of [place] heart without angina pectoris; Primary hypertension Social [...] on file Legal Sex 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 CHIEF DEVELOPMENT OFFICER Gender Identity Not on file Sexual Orientation Not on file documented as of this encounter Last Filed Vital Signs Vital Sign Reading Time Taken Comments Blood Pressure 136/86 04/30/2024 11:15 AM CHIEF DEVELOPMENT OFFICER Pulse - - Temperature - - Respiratory Rate - - Oxygen Saturation - - Inhaled Oxygen Concentration - - Weight - - Height - - Body Mass Index - - documented in this encounter Plan of Treatment Not on file documented as of this encounter Procedures Procedure Name Priority Date/Time Associated Diagnosis Comments TRANSTHORACIC ECHO (TTE) COMPLETE W DOPPLER/CF WO CONTRAST Routine 04/30/2024 11:15 AM CHIEF DEVELOPMENT OFFICER Nonrheumatic aortic valve stenosis Coronary artery disease involving [place] coronary artery of [place] heart without angina pectoris Primary hypertension documented in this encounter Results * TRANSTHORACIC ECHO (TTE) COMPLETE W DOPPLER/CF WO CONTRAST (04/30/2024 11:15 AM CHIEF DEVELOPMENT OFFICER) Anatomical Region Laterality Modality Ultrasound 04/30/2024 10:4 0 AM CHIEF DEVELOPMENT OFFICER Narrative 04/30/2024 12:55 PM CHIEF DEVELOPMENT OFFICER [facility] Cardiology [address] [facility] [address] [id number] [address] [facility] [address], [place] [address] P:[phone] P:[phone] Echocardiographic Report Patient Name: LINDA GARZA : 1940 Study Date: 04/30/2024 10:40:14 AM Gender: F Tech: [id number] Location: [facility] Provider: ROOSEVELT PAYAN ?Height(Cm): 165 BSA: 1.68 Weight(Kg): 61.7 Heart Rate: 70 BP: 136 / 86 Quality: Good Order Provider: ROOSEVELT PAYAN PROCEDURES: Echocardiographic Report: Transthoracic echocardiogram with complete 2D, M-Mode, and color Doppler examination. With Strain Analysis. INDICATIONS: I35.0 Nonrheumatic aortic (valve) stenosis, I25.10 Atherosclerotic heart disease of [place] coronary artery without angina pectoris, and I10 [...] FINDINGS: Interpretation Site: Exam was interpreted at [facility]. Left Ventricle: Normal left ventricular size. Moderate [...] Signed By: Tony Neville MD 2024-04-30 12:54:03 CHIEF DEVELOPMENT OFFICER Procedure Note Tony Neville MD - 04/30/2024 [facility] Cardiology [address] [facility] [address], [place] [address] [id number], [place] [address] P:[phone] P:[phone] Echocardiographic Report Patient Name: LINDA GARZA : 1940 Study Date: 04/30/2024 10:40:14 AM Gender: F Tech: Location: [facility] Provider: ROOSEVELT PAYAN Height(Cm): 165 BSA: 1.68 Weight(Kg): 61.7 Heart Rate: 70 BP: 136 / 86 Quality: Good Order Provider: ROOSEVELT PAYAN PROCEDURES: Echocardiographic Report: Transthoracic echocardiogram with complete 2D, M-Mode, and color Dopplerexamination. With Strain Analysis. INDICATIONS: I35.0 Nonrheumatic aortic (valve) stenosis, I25.10 Atherosclerotic heartdisease of [place] coronary artery without angina pectoris, and I10 Essential(primary) hypertension. Measurements: 2D/M ModeDoppler Measurement Value Normal Range MeasurementValue Normal Range LVIDd 2D 3.38 [ 3.80 - 5.20 ] cm CISCO Vmax1.17 [ 2.00 - 4.00 ] cm2 [...] FINDINGS: Interpretation Site: Exam was interpreted at [facility]. Left Ventricle: Normal left ventricular size. Moderate [...] Signed By: Tony Neville MD 2024-04-30 12:54:03 CHIEF DEVELOPMENT OFFICER us Roosevelt Payan MD CV ECHO PROCEDURES F inal Result documented in this encounter Visit Diagnoses Diagnosis Nonrheumatic aortic valve stenosis Coronary artery disease involving [place] coronary artery of [place] heart without angina pectoris Primary hypertension Unspecified essential hypertension documented in this encounter Care Teams Contract Assistant Relationship Specialty Start Date End Date Jose A Lakhani DO [address] [place] [address] PCP - General Family Medicine 05/15/23 documented as of this encounter
--- OUTSIDE RECORDS SUMMARY | 2024-06-08 20:54 | XMS_ITS | Encounter Summary ---
Author Organization [facility] Healthcare Address [address] [place] [address] Care Team Providers Care Heating Equipment Repairer Name Role Phone Jose A Lakhani DO Primary Care Provider Reason for Visit * Reason Comments Follow-up 4 mo f/u Coronary Artery Disease Hx: DVT of left lower extremity Encounter Details Date Type Department Care Team (Late st Contact Info) Description 10/10/2023 9:15 AM CDT Office Visit [facility] Cardiology [address] [place] [address] Ravinder Mclean MD [address] [facility] [address] [place] [address] Coronary artery disease involving crow coronary artery of crow heart without angina pectoris (Primary Dx); Labile hypertension; Statin myopathy; Nonrheumatic aortic valve stenosis; Mixed hyperlipidemia; PAD (peripheral artery disease) (HCC); Chronic anticoagulation; Deep vein thrombosis (DVT) of left upper extremity, unspecified chronicity, unspecified vein (HCC); H/O syncope Social History Tobacco Use Types Packs/Day Years Used Date Smoking Tobacco: Never Smokeless Tobacco: Never Alcohol Use Standard Drinks/Week Comments Yes 0 (1 standard drink = 0.6 oz pur e alcohol) PHQ-2 Answer Date Recorded PHQ-2 Score 1 05/28/2019 Comments Unknown Sex and Gender Information Value Date Recorded Sex Assigned at Not on file Legal Sex 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 PSYCHOLOGIST EDUCATIONAL Gender Identity Not on file Sexual Orientation Not on file documented as of this encounter Last Filed Vital Signs Vital Sign Reading Time Taken Comments Blood Pressure 130/62 10/10/2023 9:36 AM CDT Pulse 82 10/10/2023 9:36 AM CDT Temperature - - Respiratory Rate - - Oxygen Saturation 98% 10/10/2023 9:36 AM CDT Inhaled Oxygen Concentration - - Weight 63.8 kg (140 lb 11.2 oz) 10/10/2023 9:36 AM CDT Height 165.1 cm (5' 5 ) 10/10/2023 9:36 AM CDT Body Mass Index 23.41 10/10/2023 9:36 AM CDT documented in this encounter Progress Notes * Ravinder Mclean MD - 10/10/2023 9:15 AM CDT [facility] DATE OF VISIT: 10/10/2023 CHIEF COMPLAINT Chief Complaint Patient presents with Follow-up 4 mo f/u Coronary Artery Disease Hx: DVT of left lower extremity HPI Linda Garza is a 82 y.o. female with a PMHx of CAD LAD stent, h/o 80% RCA stenosis, HTN, dyslipidemia, chronic recurrent atypical CP, h/o LUE DVT on coumadin, chronic anxiety previously followed in [place]. 07/15/13 she returns today stating she has [...] noted in the 40's so sent to [place] ER by Dr. Terrazas EKG done HR [...] nearly completely resolved seeing Vascular surgery in [place] and is feeling better overall. She is [...] that is why she followed me from [place] and still chooses to see me and [...] pain. Going to see Vascular surgeon in [place] very soon and having vascular studies at [...] under significant stress Still seeing vascular in [place], wrapping legs, gets occ swelling. Still has [...] or just anxiety. Still seeing vascular in [place] told still needs wrap therapy but she [...] follow-up. [place] and shortly after that she [...] the lower extremity by vascular surgeon in [place] in 2018. She has swelling in thelegs. [...] now improved. Had COVID 2 weeks ago. 10/10/2305/2023 had syncope admitted to [place], no pauses, AF or VT. PAT noted. INR 11, had bleeding Na low had lost weight not eating well and she admits she was depressed and was not checking herINR's. She was hypotensive reported BP 60/40. Alprazolam reduced. MEDICAL HISTORY Past Medical History: Diagnosis Date [...] Known Problems Father MEDICATIONS HOME MEDICATIONS : aspirin 81 mg tablet benazepriL (LOTENSIN) 10 mg tablet Eliquis 5 mg tablet furosemide (LASIX) 20 mg tablet magnesium oxide 400 mg magnesium capsule nitroglycerin (NITROSTAT) 0.4 mg SL tablet potassium chloride ER 20 mEq CR tablet rosuvastatin (CRESTOR) 10 mg tablet albuterol HFA (PROVENTIL HFA,VENTOLIN HFA,PROAIR HFA) 90 mcg/actuation inhaler ALPRAZolam (XANAX) 1 mg tablet amitriptyline (ELAVIL) 25 mg tablet ALLERGIES Allergies Allergen Reactions Qavuvzv-Ior-Oex Reductase Inhibitors Muscle pain Jono Inhibitors Unknown [...] and are negative. PHYSICAL EXAM Vitals BP 130/62 (BP Location: Left arm, Patient Position: Sitting) Pulse 82 Ht 165.1 cm (5' 5 ) Wt 63.8 kg (140 lb 11.2 oz) SpO2 98% BMI 23.41 kg/m?? Weight: 63.8 kg (140 lb 11.2 oz) Height: 165.1 cm (5' 5 ) Body mass index is 23.41 kg/m??. Physical Exam Vitals reviewed. Constitutional: General: [...] visit with results is: Office Visit on 05/15/2023 Component Date Value Ref Range Status Cholesterol, POC 05/15/2023 164 mg/dL Final HDL, POC 05/15/2023 29 mg/dL Final Triglycerides, POC 05/15/2023 372 mg/dL Final LDL, Direct, POC 05/15/2023 61 mg/dL Final Chol/HDL Ratio, POC 05/15/2023 2.1 Final Non-HDL Cholesterol, POC 05/15/2023 135 mg/dL Final Cholesterol Total, POC 05/15/2023 164 mg/dL Final Results for orders placed or performed in visit on 05/15/23 POCT lipid panel Result Value Ref Range Cholesterol, POC 164 mg/dL HDL, POC 29 mg/dL Triglycerides, POC 372 mg/dL LDL, Direct, POC 61 mg/dL Chol/HDL Ratio, POC 2.1 Non-HDL Cholesterol, POC 135 mg/dL Cholesterol Total, POC 164 mg/dL 08/18/18 Lexiscan Stress test: Conclusions: Global [...] for this visit: Coronary artery disease involving crow coronary artery of crow heart without angina pectoris (Primary) Labile hypertension Statin myopathy Nonrheumatic aortic valve stenosis Mixed hyperlipidemia PAD (peripheral artery disease) (HCC) Chronic anticoagulation Deep vein thrombosis (DVT) of left upper extremity, unspecified chronicity, unspecified vein (HCC) H/O syncope PLAN/RECOMMENDATIONS 1. Infrequent CP, No clear anginal [...] for falls and injuries. -she remains on Benazepril taken off HCTZ due to dehydration and hypotension. Tolerating well. Ambulate with caution given fall risk and anticoagulation. 4. Remains off BB given h/o symptomatic bradycardia and hypotension. 5. 07/2021 Echo mod LVH EF 70% borderline , trivial MR, RVSP 41mmHg. MR much improved from 2020 Echo. Asymptomatic. Will monitor clinically. Echo 05/2023 CISCO 1.3cm2 peak magda 2.9m/sec. 6. PCP managing INR. Monitor for bleeding. Defer to PCP for management in this regard as he is managing anticoagulation. She verbalized understanding and agrees to follow with PCP in this regard. -Monitor for bleeding very closely. If falls/injury with bleeding or head injury go to ER immediately. -Extreme caution with ambulation to avoid risk for falls and injuries. -Warfarin held due to noncompliance high INR syncope. Eliquis 5mg BID ordered but too expensive. Defer to PCP. -ambulate with extreme caution to avoid falls and injuries. Pt at higher risk for bleeding. Over 50% of this visit counseling edema, CAD, HTN, lipids, medications, lifestyle modification. Follow up in the office in 6 months or sooner as needed. Dr Payan. Thank you for allowing me the privilege of participating in the care this very pleasant patient. Please do not hesitate to contact me with any additional questions or concerns. Sonia Mclean MD, [facility] documented in this encounter Plan of Treatment Not on file documented as of this encounter Visit Diagnoses Diagnosis Coronary artery disease involving crow coronary artery of crow heart without angina pectoris- Primary Labile hypertension Statin myopathy Toxic myopathy Nonrheumatic aortic valve stenosis Mixed hyperlipidemia PAD (peripheral artery disease) (HCC) Unspecified peripheral vascular disease Chronic anticoagulation Encounter for long-term (current) use of anticoagulants Deep vein thrombosis (DVT) of left upper extremity, unspecified chronicity, unspecified vein (HCC) H/O syncope documented in this encounter Discontinued Medications Medication Sig Discontinue Reason Start Date End Da te albuterol HFA (PROVENTIL HFA,VENTOLIN HFA,PROAIR HFA) 90 mcg/actuation inhaler Inhale 2 puffs 4 (four) times a day Therapy completed 03/24/2023 10/10/2023 ALPRAZolam (XANAX) 1 mg tablet take 1 tablet by oral route every day as needed Therapy completed 07/15/2013 10/10/2023 amitriptyline (ELAVIL) 25 mg tablet Take 1 tablet (25 mg total) by mouth nightly at bedtime. Therapy completed 06/06/2023 10/10/2023 documented as of this encounter Historical Medications * This list may reflect changes made after this encounter. apixaban (ELIQUIS ORAL) Take 2.5 mg by mouth 2 (two) times a day added in this encounter Care Teams Heating Equipment Repairer Relationship Specialty Start Date End Date Jose A Lakhani DO [address] [place] [address] PCP - General Family Medicine 05/15/23 documented as of this encounter
--- OUTSIDE RECORDS SUMMARY | 2024-06-08 20:54 | XMS_ITS | Encounter Summary ---
Author Organization [facility] Address [address] [facility] [address] [place] [address] Care Team Providers Care Operations Analyst Name Role Phone Sixto Lund MD Primary Care Provider [phone] Reason for Visit * Reason Onset Date Comments Lab Results 05/02/2022 Encounter Details Date Type Department Care Team (Late st Contact Info) Description 05/02/2022 Telephone [facility] Cardiology [address] [place] [address] Jeanette Caballero MA Lab Results Social History Tobacco Use Types Packs/Day Years Used Date Smoking Tobacco: Never Smokeless Tobacco: Never Alcohol Use Standard Drinks/Week Comments Yes 0 (1 standard drink = 0.6 oz pur e alcohol) PHQ-2 Answer Date Recorded PHQ-2 Score 1 05/28/2019 Comments Unknown Sex and Gender Information Value Date Recorded Sex Assigned at Not on file Legal Sex 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 VMWARE SYSTEMS 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 Gender Identity Not on file Sexual Orientation Not on file documented as of this encounter Miscellaneous Notes * Telephone Encounter - Jeanette Caballero MA - 05/02/2022 1:17 PM CST Labs were okay with regards to electrolytes and renal function. INR managed by PCP with a little elevated at 4.7. Defer management to PCP. ----- Message ----- From: Jeanette Caballero MA Sent: 05/01/2022 4:46 PM VMWARE SYSTEMS 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 To: Ravinder Mclean MD Subject: Edit The scan below was edited by Jeanette Caballero MA [[id number]] on 05/01/2022 at 4:46 PM; it is attached to the following: Basic metabolic panel on 05/01/2022. 05/02/22- Pt notified and information faxed to PCP. RE SYSTEMS 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 documented in this encounter Plan of Treatment Not on file documented as of this encounter Visit Diagnoses Not on filedocumented in this encounter Care Teams Operations Analyst Relationship Specialty Start Date End Date Sixto Lund MD PCP - General Internal Medicine 05/02/22 05/14/23 documented as of this encounter
--- OUTSIDE RECORDS SUMMARY | 2024-06-08 20:54 | XMS_ITS | Clinical Summary ---
Author Organization [facility] [address] Address [address] [place] [address] Care Team Providers Care Sewing Machine Tester Name Role Phone Jose A Lakhani Primary Care Provider Allergies Active Allergy Reactions Criticality Noted Date Comments Jono Inhibitors Unknown 09/06/2021 Amoxicillin Unknown 09/07/2021 Aspirin Unknown 09/06/2021 Ciprofloxacin Unknown 09/06/2021 Fesoterodine Unknown 09/06/2021 Prednisone Propoxyphene-Acetaminophen Eamejlv-Cor-Fsx Reductase Inhibitors Muscle pain Medium 05/20/2017 Sulfamethoxazole-Trimethoprim Unknown 2021 Medications aspirin 81 mg tablet Take 1 tablet (81 mg total) by mouth daily Active rosuvastatin (CRESTOR) 10 mg tabletIndicatio ns:Dyslipidemia Take 1 tablet (10 mg total) by mouth daily 90 tablet 2 12/21/2021 Active nitroglycerin (NITROSTAT) 0.4 mg SL tabletIndicatio ns:Coronary artery disease of [place] artery of [place] heart with stable angina pectoris (HCC) Place 1 tablet (0.4 mg total) under the tongue every 5 (five) minutes as needed for chest pain May repeat dose q 5 min, up to 3 doses total 25 tablet 3 02/01/2023 Active furosemide (LASIX) 20 mg tabletIndicatio ns:Abdominal swelling Take 1 tablet (20 mg total) by mouth daily 30 tablet 6 05/15/2023 Active potassium chloride ER 20 mEq CR tablet Take 1 tablet (20 mEq total) by mouth daily 06/07/2023 Active magnesium oxide 400 mg magnesium capsule Take 2 capsules by mouth daily Active benazepriL (LOTENSIN) 10 mg tablet Take 1 tablet (10 mg total) by mouth daily 04/25/2023 Active apixaban (ELIQUIS ORAL) Take 2.5 mg by mouth 2 (two) times a day Active cholecalciferol (VITAMIN D-3) 50,000 unit capsule Take 1 capsule (50,000 Units total) by mouth once a week 04/10/2024 Active HYDROcodone-jono taminophen (NORCO) 5-325 mg per tablet Take by mouth every 8 (eight) hours as needed Active sodium chloride 1,000 mg tablet 1000 MG ORALLY EVERY 8 HOURS Active traZODone (DESYREL) 100 mg tablet Take 1 tablet (100 mg total) by mouth nightly Active venlafaxine XR (EFFEXOR-XR) 37.5 mg 24 hr capsule TAKE 1 CAPSULE BY MOUTH AT BEDTIME WITH FOOD Active amLODIPine (NORVASC) 5 mg tablet Take 1 tablet (5 mg total) by mouth daily Active Active Problems Problem Noted Date Diagnosed Date H/O syncope 10/10/2023 Nonrheumatic aortic valve stenosis 10/06/2021 Mixed hyperlipidemia 06/21/2021 Hematoma 01/02/2021 Nonrheumatic mitral valve regurgitation 11/03/19 21 Localized edema 12/24/2019 Statin myopathy 12/24/2019 PAD (peripheral artery disease) 02/10/2019 Other chest pain 02/10/2019 Diaphoresis 08/07/2018 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 09/02/2017 PVC (premature ventricular contraction) 03/19/20 17 Statin intolerance 02/06/2017 Bradycardia 02/06/2017 Palpitations 02/06/2017 Muscle pain 02/16/2016 Overview (09/29/2016): Myalgia History of fall 08/10/2015 Overview (09/29/2016): H/O fall Deep vein thrombosis (DVT) of upper extremity (C MS/HCC) 05/17/2015 Overview (09/29/2016): Deep venous thrombosis of left upper extremity Chronic anticoagulation 05/17/2015 Overview (09/29/2016): Chronic anticoagulation Anxiety 05/17/2015 Overview (09/29/2016): Anxiety Coronary artery disease invo lving sel[place] coronary artery of [place] heart without angina pectoris 05/17/2015 Overview (09/29/2016): Coronary artery disease involving [place] coronary artery of [place] heart with other form of angina pectoris Orthostatic hypotension 05/17/2015 Overview (09/29/2016): Orthostatic hypotension Primary hypertension 01/13/2014 Overview (09/29/2016): HTN (hypertension), benign Resolved Problems Problem Noted Date Diagnosed Date Resolved Date Dyslipidemia 08/10/2015 06/21/2021 Overview (09/29/2016): Mixed dyslipidemia Recurrent falls 05/17/2015 03/19/2017 Overview (09/29/2016): Frequent falls Encounters Date Type Department Care Team Description 04/30/2024 10:15 AM LOADING INSPECTOR Ancillary Procedure [facility] Medical [facility] Cardiology [address] [place] [address] Nonrheumatic aortic valve stenosis; Coronary artery disease involving [place] coronary artery of [place] heart without angina pectoris; Primary hypertension 04/20/2024 11:00 AM CDT Office Visit [facility] Cardiology [address] [place] [address] Roosevelt Payan MD Nonrheumatic aortic valve stenosis (Primary Dx); Mixed hyperlipidemia; Coronary artery disease involving [place] coronary artery of [place] heart without angina pectoris; Primary hypertension from Last 3 Months Surgical History Surgery Date Site/Laterality Comments OTHER SURGICAL HISTORY Coronary Stent Placement LAD stent Medical History Medical History Date Comments Cardiovascular disease Coronary Artery Disease Hypertension Hypertension Hx Other Medical Chronic Anxiety Hx Other Medical DVT: LUE Hypothyroidism Hypothyroidism Family History Medical History Relation Name Comments No Known Problems Father No Known Problems Mother Relation Name Status Comments Father Mother Social History Tobacco Use Types Packs/Day Years [...] on file Legal Sex 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 LOADING INSPECTOR Gender Identity Not on file Sexual Orientation Not on file Obstetrics History Last Filed Vital Signs Vital Sign Reading Time Taken Comments Blood Pressure 136/86 04/30/2024 11:15 AM LOADING INSPECTOR Pulse 93 04/20/2024 10:35 AM CDT Temperature 36.1 ??C (97 ??F) 07/27/2020 9:10 AM LOADING INSPECTOR Respiratory Rate 16 05/28/2019 10:10 AM LOADING INSPECTOR Oxygen Saturation 97% 04/20/2024 10:35 AM CDT Inhaled Oxygen Concentration - - Weight 61.8 kg (136 lb 4.8 oz) 04/20/2024 10:35 AM CDT Height 165.1 cm (5' 5 ) 04/20/2024 10:35 AM CDT Body Mass Index 22.68 04/20/2024 10:35 AM CDT Plan of Treatment Health Maintenance Due Date Last Done Comments Osteoporosis Screening-Bone Density Scan 1940 Hepatitis B Screening 1958 Zoster Vaccine (1 of 2) 1988 Well Visit 65+ 11/17/2003 Depression Screening 05/28/2020 05/28/2019 Fall Risk Assessment 03/20/2022 03/20/2021 Covid-19 Vaccine (4 - 2023-2 5 season) 2024 06/16/2021, 09/25/2020, 08/28/2020 Influenza Vaccine (#1) 2024 , 04/29/2020, 04/21/2019, Additional history exists DTaP/Tdap/Td Vaccine (2 - Td or Tdap) 11/30/2033 12/01/2023 Pneumococcal vaccine 65+ Completed 01/19/2022, 06/2014 Procedures Procedure Name Priority Date/Time Associated Diagnosis Comments TRANSTHORACIC ECHO (TTE) COMPLETE W DOPPLER/CF WO CONTRAST Routine 04/30/2024 11:15 AM LOADING INSPECTOR Nonrheumatic aortic valve stenosis Coronary artery disease involving [place] coronary artery of [place] heart without angina pectoris Primary hypertension from Last 3 Months Results * TRANSTHORACIC ECHO (TTE) COMPLETE W DOPPLER/CF WO CONTRAST (04/30/2024 11:15 AM LOADING INSPECTOR) Anatomical Region Laterality Modality Ultrasound 04/30/2024 10:4 0 AM LOADING INSPECTOR Narrative 04/30/2024 12:55 PM LOADING INSPECTOR [facility] Medical Group Cardiology [address], [place] [address] [address], [place] [address] P:[phone] P:[phone] Echocardiographic Report Patient Name: LINDA GARZA : 1940 Study Date: 04/30/2024 10:40:14 AM Gender: F Tech: Location: [facility] Provider: ROOSEVELT PAYAN ?Height(Cm): 165 BSA: 1.68 Weight(Kg): 61.7 Heart Rate: 70 BP: 136 / 86 Quality: Good Order Provider: ROOSEVELT PAYAN PROCEDURES: Echocardiographic Report: Transthoracic echocardiogram with complete 2D, M-Mode, and color Doppler examination. With Strain Analysis. INDICATIONS: I35.0 Nonrheumatic aortic (valve) stenosis, I25.10 Atherosclerotic heart disease of [place] coronary artery without angina pectoris, and I10 [...] FINDINGS: Interpretation Site: Exam was interpreted at [facility]. Left Ventricle: Normal left ventricular size. Moderate [...] Signed By: Tony Neville MD 2024-04-30 12:54:03 LOADING INSPECTOR Procedure Note Tony Neville MD - 04/30/2024 [facility] Medical Group Cardiology [address], [place] [address] [address], [place] [address] P:[phone] P:[phone] Echocardiographic Report Patient Name: LINDA GARZA : [birth year] Study Date: 04/30/2024 10:40:14 AM Gender: F Tech: Location: [place] Ref Provider: ROOSEVELT PAYAN Height(Cm): 165 BSA: 1.68 Weight(Kg): 61.7 Heart Rate: 70 BP: 136 / 86 Quality: Good Order Provider: ROOSEVELT PAYAN PROCEDURES: Echocardiographic Report: Transthoracic echocardiogram with complete 2D, M-Mode, and color Dopplerexamination. With Strain Analysis. INDICATIONS: I35.0 Nonrheumatic aortic (valve) stenosis, I25.10 Atherosclerotic heartdisease of [place] coronary artery without angina pectoris, and I10 [...] FINDINGS: Interpretation Site: Exam was interpreted at [facility]. Left Ventricle: Normal left ventricular size. Moderate [...] Signed By: Tony Neville MD 2024-04-30 12:54:03 LOADING INSPECTOR us Roosevelt Payan MD CV ECHO PROCEDURES F inal Result from Last 3 Months Insurance MEDICARE [facility] MEDICARE [facility] Care Teams Sewing Machine Tester Relationship Specialty Start Date End Date Jose A Lakhani DO [address] [place] [address] PCP - General Family Medicine 05/15/23
--- OUTSIDE RECORDS SUMMARY | 2024-06-08 20:54 | XMS_ITS | Encounter Summary ---
Author Organization [facility] Medical Group Address [address] [place] [address] Care Team Providers Care Auto Mechanics Teacher Name Role Phone Sixto Lund MD Primary Care Provider Reason for Visit * Reason Onset Date Comments Scheduling Appointments 07/17/2022 Encounter Details Date Type Department Care Team (Late st Contact Info) Description 07/17/2022 Telephone [facility] Medical [facility] Cardiology [address] [place] [address] Jeanette Caballero MA Scheduling Appointments Social History Tobacco Use Types Packs/Day Years Used Date Smoking Tobacco: Never Smokeless Tobacco: Never Alcohol Use Standard Drinks/Week Comments Yes 0 (1 standard drink = 0.6 oz pur e alcohol) PHQ-2 Answer Date Recorded PHQ-2 Score 1 05/28/2019 Comments Unknown Sex and Gender Information Value Date Recorded Sex Assigned at Not on file Legal Sex 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 MATHEMATICAL SCIENCES PROFESSOR Gender Identity Not on file Sexual Orientation Not on file documented as of this encounter Miscellaneous Notes * Telephone Encounter - Jeanette Caballero MA - 07/17/2022 12:31 PM MATHEMATICAL SCIENCES PROFESSOR 07/17/22- AD will be out of office on 09/06/22. LM we need to r/s EMATICAL SCIENCES PROFESSOR documented in this encounter Plan of Treatment Not on file documented as of this encounter Visit Diagnoses Not on filedocumented in this encounter Care Teams Auto Mechanics Teacher Relationship Specialty Start Date End Date Sixto Lund MD PCP - General Internal Medicine 05/02/22 05/14/23 documented as of this encounter
--- OUTSIDE RECORDS SUMMARY | 2024-06-08 20:54 | XMS_ITS | Encounter Summary ---
Author Organization [facility] Medical Group Address [address] [place] [address] Care Team Providers Care Legal Practice Manager Name Role Phone Sixto Terrazas MD Primary Care Provider [phone] Reason for Visit * Reason Comments Follow-up 3 mo f/u Coronary Artery Disease Palpitations Encounter Details Date Type Department Care Team (Late st Contact Info) Description 10/06/2021 11:00 AM CDT Office Visit [facility] Medical Group Cardiology [address] [place] [address] Ravinder Mclean MD [address] [place] [address] Coronary artery disease involving cahto coronary artery of caht[place] heart without angina pectoris (Primary Dx); Labile hypertension; Nonrheumatic aortic valve stenosis; Statin myopathy; Mixed hyperlipidemia; Localized edema; Chronic deep vein thrombosis (DVT) [...] on file 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 Gender Identity Not on file Sexual Orientation Not on file documented as of this encounter Last Filed Vital Signs Vital Sign Reading Time Taken Comments Blood Pressure 112/70 10/06/2021 10:54 AM CDT Pulse 69 10/06/2021 10:54 AM CDT Temperature - - Respiratory Rate - - Oxygen Saturation 98% 10/06/2021 10:54 AM CDT Inhaled Oxygen Concentration - - Weight 69.2 kg (152 lb 9.6 oz) 10/06/2021 10:54 AM CDT Height 165.1 cm (5' 5 ) 10/06/2021 10:54 AM CDT Body Mass Index 25.39 10/06/2021 10:54 AM CDT documented in this encounter Progress Notes * Ravinder Mclean MD - 10/06/2021 11:00 AM CDT [facility] DATE OF VISIT: 10/06/2021 CHIEF COMPLAINT Chief Complaint Patient presents with ??? Follow-up 3 mo f/u ??? Coronary Artery Disease ??? Palpitations HPI Linda Garza is a 80 y.o. female with a PMHx of CAD LAD stent, h/o 80% RCA stenosis, HTN, dyslipidemia, chronic recurrent atypical CP, h/o LUE DVT on coumadin, chronic anxiety previously followed in [place]. 07/15/13 she returns today stating she has [...] noted in the 40's so sent to [place] ER by Dr. Terrazas EKG done HR [...] nearly completely resolved seeing Vascular surgery in [place] and is feeling better overall. She is [...] that is why she followed me from [place] and still chooses to see me and [...] pain. Going to see Vascular surgeon in [place] very soon and having vascular studies at [...] under significant stress Still seeing vascular in [place], wrapping legs, gets occ swelling. Still has [...] HR. Worried about her Echo with mod . Denies dizziness, no near syncope or syncope. [...] or just anxiety. Still seeing vascular in [place] told still needs wrap therapy but she [...] follow-up. [place] after that she [...] sig palps. O2 fine. in Jun 2021. MEDICAL HISTORY Past Medical History: Diagnosis Date [...] mg tablet famotidine (PEPCID) 40 mg tablet ALLERGIES Allergies Allergen Reactions ??? [place] Reductase Inhibitors Muscle pain ??? Prednisone ??? [...] for environmental allergies. PHYSICAL EXAM Vitals BP 112/70 (BP Location: Left arm, Patient Position: Sitting) Pulse 69 Ht 165.1 cm (5' 5 ) Wt 69.2 kg (152 lb 9.6 oz) SpO2 98% BMI 25.39 kg/m?? Weight: 69.2 kg (152 lb 9.6 oz) Height: 165.1 cm (5' 5 ) Body mass index is 25.39 kg/m??. Physical Exam Constitutional: General: She is [...] for this visit: Coronary artery disease involving cahto coronary artery of caht[place] heart without angina pectoris (Primary) Labile hypertension Nonrheumatic aortic valve stenosis Statin myopathy Mixed hyperlipidemia Localized edema 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 (HCC) Chronic anticoagulation History of fall PLAN/RECOMMENDATIONS 1. Rare atypical sounding CP, previously SLNTG responsive. She [...] loss, medication compliance, and low-sodium diet. -Off HCTZ, Lasix 20 mg as needed for edema. Caution to avoid risk for falls and injuries. 4. Remains off BB given h/o symptomatic bradycardia and hypotension. 5. Personally reviewed and discussed from 07/2021 Echo mod LVH EF 70% borderline [...] additional questions or concerns. Sonia Mclean MD, FAC documented in this encounter Plan of Treatment Not on file documented as of this encounter Visit Diagnoses Diagnosis Coronary artery disease involving cahto coronary artery of [place]ht[place] heart without angina pectoris- Primary Labile hypertension Nonrheumatic aortic valve stenosis Statin myopathy Toxic myopathy Mixed hyperlipidemia Localized edema Edema 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 (HCC) Chronic anticoagulation Encounter for long-term (current) use of anticoagulants History of fall Personal history of fall documented in this encounter Discontinued Medications Medication Sig Discontinue Reason Start Date End Da te famotidine (PEPCID) 40 mg tablet Therapy completed 02/28/2021 10/06/2021 benazepriL (LOTENSIN) 10 mg tabletIndications:Labile hypertension Take 1 tablet (10 mg total) by mouth daily Duplicate order 07/25/2021 10/06/2021 documented as of this encounter Care Teams Legal Practice Manager Relationship Specialty Start Date End Date Sixto Terrazas MD PCP - General 09/21/16 05/01/22 documented as of this encounter
--- OUTSIDE RECORDS SUMMARY | 2024-06-08 20:54 | XMS_ITS | Encounter Summary ---
Author Organization [facility] Care Team Providers Care Library Circulation Department Chief Name Role Phone Sixto Lund MD Primary Care Provider [phone] Encounter Details Date Type Department Care Team (Latest Contact Info) Description 02/10/2019 Travel Social History Tobacco Use Types Packs/Day Years Used Date Smoking Tobacco: Never Smokeless Tobacco: Never Alcohol Use Standard Drinks/Week Comments Yes 0 (1 standard drink = 0.6 oz pur e alcohol) Comments Unknown Sex and Gender Information Value Date Recorded Sex Assigned at Not on file 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
--- OUTSIDE RECORDS SUMMARY | 2024-06-08 20:54 | XMS_ITS | Encounter Summary ---
Author Organization [facility] Address [address] [place] [address] Care Team Providers Care Reading Tutor Name Role Phone Sixto Terrazas MD Primary Care Provider [phone] Reason for Visit * Reason Comments Follow-up 5 mo f/u Coronary Artery Disease Encounter Details Date Type Department Care Team (Late st Contact Info) Description 09/28/2022 10:15 AM CDT Office Visit [facility] Cardiology [address] [place] [id number] Ravinder Mclean MD [address] [facility] [address] [place] [address] Coronary artery disease involving emmonak coronary artery of emmonak heart without angina pectoris (Primary Dx); Labile hypertension; Mixed hyperlipidemia; Statin myopathy; Chronic deep vein [...] on file 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 Gender Identity Not on file Sexual Orientation Not on file documented as of this encounter Last Filed Vital Signs Vital Sign Reading Time Taken Comments Blood Pressure 114/70 09/28/2022 10:41 AM CDT Pulse 70 09/28/2022 10:41 AM CDT Temperature - - Respiratory Rate - - Oxygen Saturation 97% 09/28/2022 10:41 AM CDT Inhaled Oxygen Concentration - - Weight 69.2 kg (152 lb 8 oz) 09/28/2022 10:41 AM CDT Height 165.1 cm (5' 5 ) 09/28/2022 10:41 AM CDT Body Mass Index 25.38 09/28/2022 10:41 AM CDT documented in this encounter Progress Notes * Ravinder Mclean MD - 09/28/2022 10:15 AM CDT [facility] DATE OF VISIT: 09/28/2022 CHIEF COMPLAINT Chief Complaint Patient presents with Follow-up 5 mo f/u Coronary Artery Disease HPI Linda Garza is a 81 y.o. female with a PMHx of CAD LAD stent, h/o 80% RCA stenosis, HTN, dyslipidemia, chronic recurrent atypical CP, h/o LUE DVT on coumadin, chronic anxiety previously followed in [place]. 07/15/13 she returns today stating she has [...] noted in the 40's so sent to [place] ER by Dr. Terrazas EKG done HR [...] nearly completely resolved seeing Vascular surgery in [place] and is feeling better overall. She is [...] that is why she followed me from [place] and still chooses to see me and [...] pain. Going to see Vascular surgeon in [place] very soon and having vascular studies at [...] under significant stress Still seeing vascular in [place], wrapping legs, gets occ swelling. Still has [...] no CP. States had same pain in e past then resolved but has now [...] or just anxiety. Still seeing vascular in [place] told still needs wrap therapy but she [...] follow-up. [place] after that she [...] the lower extremity by vascular surgeon in [place] in 2018. She has swelling in thelegs. [...] so restarted it. Had UTI last week. MEDICAL HISTORY Past Medical History: Diagnosis Date [...] benazepril-hydroCHLOROthiazide (LOTENSIN HCT) 10-12.5 mg per tablet furosemide (LASIX) 20 mg tablet nitroglycerin (NITROSTAT) 0.4 mg SL tablet rosuvastatin (CRESTOR) 10 mg tablet warfarin (COUMADIN) 3 mg tablet benazepriL (LOTENSIN) 10 mg tablet cephalexin (KEFLEX) 250 mg capsule ALLERGIES Allergies Allergen Reactions Qtxyyvo-Yda-Ysa Reductase Inhibitors Muscle pain Prednisone Propoxyphene-Acetaminophen REVIEW [...] and are negative. PHYSICAL EXAM Vitals BP 114/70 (BP Location: Left arm, Patient Position: Sitting) Pulse 70 Ht 165.1 cm (5' 5 ) Wt 69.2 kg (152 lb 8 oz) SpO2 97% BMI 25.38 kg/m?? Weight: 69.2 kg (152 lb 8 oz) Height: 165.1 cm (5' 5 ) Body mass index is 25.38 kg/m??. Physical Exam Vitals reviewed. Constitutional: General: [...] AND OTHER DIAGNOSTIC TESTS Office Visit on 09/28/2022 Component Date Value [...] for this visit: Coronary artery disease involving emmonak coronary artery of emmonak heart without angina pectoris (Primary) Labile hypertension Mixed hyperlipidemia Statin myopathy 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 (HCC) Chronic anticoagulation Lipid screening - POCT lipid panel PLAN/RECOMMENDATIONS 1. Infrequent CP, but has been previously [facility] responsive. She is to notify the office immediatelywith any new or concerning symptoms and if severe or unrelenting present to the nearest ER via EMS.Aggressive CAD risk modification counseling performed. Continue current medical therapy. Notify office immediately with anginal symptoms. -Stress test negative EF 69% 08/18/18 2. Lipids personally reviewed 09/28/22 LDL 119, goal LDL<70. Rosuvastatin 10mg qhs. -she would [...] Caution to avoid risk forfalls and injuries. -contact PCP re side effects with Benazepril/HCTZ, caution with ambulation. She would like to discontinue hydrochlorothiazide but advised she needs to discuss with her physician. She agrees. 4. Remains off BB given h/o symptomatic bradycardia and hypotension but now complaining of heart pounding but HR overall not alarming. 5. 07/2021 Echo mod LVH EF 70% [...] to avoid risk for falls and injuries. -May hold ASA if excessive bleeding or bruising but would prefer to continue if appropriate risk vsbenefit. Advised to hold until hematoma on leg improves. Over 50% of this visit counseling edema, CAD, HTN, lipids, medications, lifestyle modification. Follow up in the office in 3 months or sooner as needed. Thank you for allowing me the privilege of participating in the care this very pleasant patient. Please do not hesitate to contact me with any additional questions or concerns. Sonia Mclean MD, [facility] documented in this encounter Plan of Treatment Not on file documented as of this encounter Procedures Procedure Name Priority Date/Time Associated Diagnosis Comments POCT LIPID PANEL Routine 09/28/2022 10:4 7 AM CDT Lipid screening documented in this encounter Results * POCT lipid panel (09/28/2022 10:47 AM CDT) Cholesterol, POC 206 mg/dL Comment:GLU = 93 HDL, POC 46 mg/dL Triglycerides, POC 203 mg/dL LDL Cholesterol POC 119 mg/dL Chol/HDL Ratio, POC 2.6 Non-HDL Cholesterol, POC 160 mg/dL Cholesterol Total, POC 206 mg/dL Capillary blood 09/28/2022 1 0:47 AM CDT Ravinder Mclean MD POINT OF CARE TEST ORDER MALOU Final Result documented in this encounter Visit Diagnoses Diagnosis Coronary artery disease involving emmonak coronary artery of emmonak heart without angina pectoris- Primary Labile hypertension Mixed hyperlipidemia Statin myopathy Toxic myopathy 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 (HCC) Chronic anticoagulation Encounter for long-term (current) use of anticoagulants Lipid screening Screening for lipoid disorders documented in this encounter Historical Medications * This list may reflect changes made after this encounter. benazepril-hydroC HLOROthiazide (LOTENSIN HCT) 10-12.5 mg per tablet Take 1 tablet by mouth daily 06/13/2023 added in this encounter Care Teams Reading Tutor Relationship Specialty Start Date End Date Sixto Terrazas MD PCP - General Internal Medicine 05/02/22 05/14/23 documented as of this encounter
--- OUTSIDE RECORDS SUMMARY | 2024-06-08 20:54 | XMS_ITS | Encounter Summary ---
Author Organization [facility] Address [address] [place] [address] Care Team Providers Care Electrical Continuity Inspector Name Role Phone Sixto Terrazas MD Primary Care Provider [phone] Reason for Visit * Reason Comments Coronary Artery Disease Peripheral Artery Disease Bradycardia Hypertension 2 mo f/u Encounter Details Date Type Department Care Team (Late st Contact Info) Description 06/07/2020 11:30 AM AUTOPSY ASSISTANT Office Visit [facility] Cardiology [address] [facility] [address] [place] [address] Codie Mathew NP [address] [place], [place] [id number] Abdominal swelling (Primary Dx); Anxiety; Coronary artery disease involving sycuan coronary artery of sycuan heart without angina pectoris; Statin intolerance Social History Tobacco Use Types Packs/Day Years Used Date Smoking Tobacco: Never Smokeless Tobacco: Never Alcohol Use Standard Drinks/Week Comments Yes 0 (1 standard drink = 0.6 oz pur e alcohol) PHQ-2 Answer Date Recorded PHQ-2 Score 1 05/28/2019 Comments Unknown Sex and Gender Information Value Date Recorded Sex Assigned at Not on file 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 Gender Identity Not on file Sexual Orientation Not on file documented as of this encounter Last Filed Vital Signs Vital Sign Reading Time Taken Comments Blood Pressure 138/72 06/07/2020 11:49 AM AUTOPSY ASSISTANT Pulse 92 06/07/2020 11:49 AM AUTOPSY ASSISTANT Temperature - - Respiratory Rate - - Oxygen Saturation 96% 06/07/2020 11:49 AM AUTOPSY ASSISTANT Inhaled Oxygen Concentration - - Weight 71.7 kg (158 lb) 06/07/2020 11:49 AM AUTOPSY ASSISTANT Height 165.1 cm (5' 5 ) 06/07/2020 11:49 AM AUTOPSY ASSISTANT Body Mass Index 26.29 06/07/2020 11:49 AM AUTOPSY ASSISTANT documented in this encounter Patient Instructions * Patient Instructions* Codie Mathew NP - 06/07/2020 11:30 AM AUTOPSY ASSISTANT Stop hydrochlorothiazide and start furosemide (Lasix) 20 mg once a day. Get blood test the Saturday after . PSY ASSISTANT documented in this encounter Ordered Prescriptions Prescription Sig Dispense Quantity Refills Last Filled Start Date End Date furosemide (LASIX) 20 mg tabletIndications: Abdominal swelling Take 1 tablet (20 mg total) by mouth daily 30 tablet 11 06/07/2020 05/15/2023 documented in this encounter Progress Notes * Codie Mathew NP - 06/07/2020 11:30 AM CST Images from the original note were not included. [facility] Cardiology [address] [place] [address] Date of Visit: 06/07/2020 Patient ID: Linda Garza [id number] Chief Complaint: Linda Garza is a 79 y.o. female who is an established patient Dr. Mclean with CAD and PAD, PVCs. She is returning for two-month follow-up. History of Present Illness: Linda Garza is a 79 y.o. female with a PMHx of CAD LAD stent, h/o 80% RCA stenosis, HTN, dyslipidemia, chronic recurrent atypical CP, h/o LUE DVT on coumadin, chronic anxiety previously followed in [place]. 07/15/13 she returns today stating she has [...] noted in the 40's so sent to [facility] by Dr. Terrazas EKG done HR 55bpm. [...] nearly completely resolved seeing Vascular surgery in [place] and is feeling better overall. She is [...] that is why she followed me from [place] and still chooses to see me and [...] pain. Going to see Vascular surgeon in [place] very soon and having vascular studies [...] under significant stress Still seeing vascular in [place], wrapping legs, gets occ swelling. Still has [...] right off bed and hit [facility], bruised L upper arm and weigh of [...] about her symptoms and her health problems. Records that I personally reviewed on the day of this visit include: (the interpretation is outlined in the HPI above) 04/06/[address] Mclean I have also reviewed: allergies, current medications, past family history, past medical history, past social history, past surgical history and problem list Review of Systems Constitution: Positive for diaphoresis and weight gain. Negative for fever, malaise/fatigue and weight loss. HENT: Negative for hearing loss. Eyes: Negative for visual disturbance. Cardiovascular: Positive for dyspnea on exertion, leg swelling, palpitations and paroxysmal nocturnal dyspnea. Negative for chest pain, claudication, orthopnea and syncope. Respiratory: Negative for cough, hemoptysis, snoring and wheezing. Hematologic/Lymphatic: Bruises/bleeds easily. Skin: Negative for poor wound healing and rash. Musculoskeletal: Positive for myalgias. Negative for joint pain. Gastrointestinal: Positive for bloating. Negative for heartburn, nausea and vomiting. Genitourinary: Negative for hematuria. Neurological: Negative for dizziness, headaches and light-headedness. Psychiatric/Behavioral: Negative for depression. The patient is not nervous/anxious. Vital Signs: BP 138/72 (BP Location: Right arm, Patient Position: Sitting) Pulse 92 Ht 165.1 cm (5' 5 ) Wt71.7 kg (158 lb) SpO2 96% BMI 26.29 kg/m?? Physical Exam Constitutional: She is oriented [...] heart sounds. No murmur heard. Pulmonary/Chest: Effort normal. No respiratory distress. She has rales in the right lower field. Abdominal: Soft. Bowel sounds are normal. There is no abdominal tenderness. Musculoskeletal: General: Edema present. Comments: Ambulating with cane. LLE 1-2+ pedal edema Pt reports right thigh edema but not examined Neurological: She is alert and oriented to person, place, and time. Skin: Skin is warm and dry. Psychiatric: Her mood appears anxious. Allergies Allergen Reactions ??? Ijutccu-Yxv-Dla Reductase Inhibitors Muscle pain ??? Prednisone ??? [...] by mouth daily., Disp: , Rfl: ??? nitroglycerin (NITROSTAT) 0.4 [...] After Visit Summary., Disp: , Rfl: ??? furosemide (LASIX) 20 mg tablet, Take 1 tablet (20 mg total) by mouth daily, Disp: 30 tablet, Rfl: 11 No results found for: POTASSIUM, BUNSER, CREATININE, CHOL, TRIG, LDL, LDLCALC, HDL Assessment: Diagnoses and all orders for this visit: Abdominal swelling (Primary) - furosemide (LASIX) 20 mg tablet; Take 1 tablet (20 mg total) by mouth daily - Basic metabolic panel; Future Anxiety Coronary artery disease involving sycuan coronary artery of sycuan heart without angina pectoris Statin intolerance Plan/Recommendations: She is bothered by abdominal swelling which gets progressively worse throughout the day. She has gained weight and cannot identify any reasons why. She has had some paroxysmal nocturnal dyspnea over the last couple of months. I recommend stopping hydrochlorothiazide and starting furosemide 20 mg daily. Check a BMP in about 10 days. And I will have her return to the office for follow-up with me in 1 month. Stress test in July 2018 showed normal EF, but could consider getting an echo to reassess her LV function in the near future. At next visit, I will follow-up with her regarding compliance with aspirin and statin. She has had some problems tolerating statins in the past. She reports no symptoms of angina at this time. I will also schedule her future follow-up with Dr. Mclean in 4-5 months. RASHAD Gil- Nurse Practitioner with [facility] Cardiology This note is dictated and transcribed using [employer] Fluency Direct Software. Hearings Reporter variancesmay occur. Despite proofreading, typographical errors may occur. PSY ASSISTANT documented in this encounter Plan of Treatment Scheduled Orders Name Type Priority Associated Diagnoses Orde r Schedule Basic metabolic panel Lab Routine Abdominal swelling Expected: 06/21/2020, Expires: 08/08/2020 documented as of this encounter Visit Diagnoses Diagnosis Abdominal swelling- Primary Anxiety Anxiety state, unspecified Coronary artery disease involving sycuan coronary artery of sycuan heart without angina pectoris Statin intolerance documented in this encounter Discontinued Medications Medication Sig Discontinue Reason Start Date End Da te hydroCHLOROthiazide (HYDRODIURIL) 25 mg tablet TAKE 1 TABLET BY MOUTH DAILY Alternate therapy 06/04/2019 06/07/2020 documented as of this encounter Care Teams Electrical Continuity Inspector Relationship Specialty Start Date End Date Sixto Terrazas MD PCP - General 09/21/16 05/01/22 documented as of this encounter
--- OUTSIDE RECORDS SUMMARY | 2024-06-08 20:54 | XMS_ITS | Encounter Summary ---
Author Organization [facility] Address [address] [facility] [address] [place] [address] Care Team Providers Care Type Bar And Segment Assembler Name Role Phone Sixto Terrazas MD Primary Care Provider [phone] Reason for Visit * Reason Comments Hypertension Coronary Artery Disease 2 mo f/u Encounter Details Date Type Department Care Team (Late st Contact Info) Description 03/13/2021 9:30 AM CDT Office Visit [facility] Cardiology [address] [place] [address] Codie Mathew NP [address] [place] [address] Palpitations (Primary Dx); Labile hypertension; Coronary artery disease involving [place] coronary artery of [place] heart without angina pectoris; Dyslipidemia; Statin myopathy; 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 (HCC); Chronic anticoagulation Social History Tobacco Use Types Packs/Day Years Used Date Smoking Tobacco: Never Smokeless Tobacco: Never Alcohol Use Standard Drinks/Week Comments Yes 0 (1 standard drink = 0.6 oz pur e alcohol) PHQ-2 Answer Date Recorded PHQ-2 Score 1 05/28/2019 Comments Unknown Sex and Gender Information Value Date Recorded Sex Assigned at Not on file Legal Sex 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 Gender Identity Not on file Sexual Orientation Not on file documented as of this encounter Last Filed Vital Signs Vital Sign Reading Time Taken Comments Blood Pressure 120/68 03/13/2021 10:05 AM CDT Pulse 89 03/13/2021 10:05 AM CDT Temperature - - Respiratory Rate - - Oxygen Saturation 96% 03/13/2021 10:05 AM CDT Inhaled Oxygen Concentration - - Weight 70.3 kg (155 lb) 03/13/2021 10:05 AM CDT Height 165.1 cm (5' 5 ) 03/13/2021 10:05 AM CDT Body Mass Index 25.79 03/13/2021 10:05 AM CDT documented in this encounter Patient Instructions * Patient Instructions* Codie Mathew NP - 03/13/2021 9:30 AM CDT Start metoprolol 1/2 tablet twice daily to bring down heart rate. Cut benazepril in half. Check blood pressure and heart rate 1 hour after taking morning medicine and keep a written record for me. documented in this encounter Ordered Prescriptions Prescription Sig Dispense Quantity Refills Last Filled Start Date End Date metoprolol tartrate (LOPRESSOR) 25 mg immediate release tabletIndications: Palpitations Take 0.5 tablets (12.5 mg total) by mouth 2 (two) times a day 15 tablet 11 03/13/2021 1 benazepriL (LOTENSIN) 10 mg tabletIndications: Labile hypertension Take 0.5 tablets (5 mg total) by mouth daily 90 tablet 3 03/13/2021 1 documented in this encounter Progress Notes * Codie Mathew NP - 03/13/2021 9:30 AM CDT Images from the original note were not included. [facility] Cardiology [address] [place] [address] Date of Visit: 03/13/2021 Patient ID: Linda Garza [id number] Chief Complaint: Linda Garza is a 80 y.o. female who is an established patient Dr. Mclean with CAD, PAD, PVCs, and labile hypertension. She is returning for two-month follow-up. History of Present Illness: Linda Garza is a 80 y.o. female with a PMHx of CAD LAD stent, h/o 80% RCA stenosis, HTN, dyslipidemia, chronic recurrent atypical CP, h/o LUE DVT on coumadin, chronic anxiety previously followed in [place]. 07/15/13 she returns today stating she has [...] noted in the 40's so sent to [place] ER by Dr. Terrazas EKG done HR [...] nearly completely resolved seeing Vascular surgery in [place] and is feeling better overall. She is [...] that is why she followed me from [place] and still chooses to see me and [...] pain. Going to see Vascular surgeon in [place] very soon and having vascular studies at [...] under significant stress Still seeing vascular in [place], wrapping legs, gets occ swelling. Still has [...] or just anxiety. Still seeing vascular in [place] told still needs wrap therapy but she [...] follow-up. [place] that she [...] been okay. Blood pressures have been fine. Records that I personally reviewed on the day of this visit include: (the interpretation is outlined in the HPI above) 01/02/[address] Mclean, today's POC lipid panel results I have also reviewed: allergies, current medications, past family history, past medical history, past social history, past surgical history and problem list Review of Systems Constitutional: Positive for diaphoresis and weight gain. Negative for fever, malaise/fatigue and weight loss. HENT: Positive for hearing loss. Eyes: Negative for visual disturbance. Cardiovascular: Positive for leg swelling. Negative for chest pain, claudication, dyspnea on exertion, orthopnea, palpitations, paroxysmal nocturnal dyspnea and syncope. Respiratory: Positive for sleep disturbances due to breathing (Patient attributes to anxiety at night). Negative for cough, hemoptysis, shortness of breath, snoring and wheezing. Hematologic/Lymphatic: Bruises/bleeds easily. Skin: Negative for poor wound healing and rash. Musculoskeletal: Positive for joint pain and myalgias. Gastrointestinal: Negative for heartburn, nausea and vomiting. Genitourinary: Negative for hematuria. Neurological: Negative for dizziness, headaches and light-headedness. Psychiatric/Behavioral: Negative for depression. The patient is not nervous/anxious. Vital Signs: BP 120/68 (BP Location: Left arm, Patient Position: Sitting) Pulse 89 Ht 165.1 cm (5' 5 ) Wt 70.3 kg (155 lb) SpO2 96% BMI 25.79 kg/m?? Physical Exam Constitutional: General: She is not in acute distress. Appearance: She is well-developed. HENT: Head: Normocephalic and atraumatic. Nose: Nose normal. Eyes: General: No scleral icterus. Conjunctiva/sclera: Conjunctivae normal. Pupils: Pupils are equal, round, and reactive to light. Neck: Vascular: No JVD. Trachea: No tracheal deviation. Cardiovascular: Rate and Rhythm: Normal rate and regular rhythm. Heart sounds: Normal heart sounds. No murmur heard. Pulmonary: Effort: Pulmonary effort is normal. No respiratory distress. Breath sounds: Normal breath sounds. Abdominal: General: Bowel sounds are normal. Palpations: Abdomen is soft. Tenderness: There is no abdominal tenderness. Musculoskeletal: Cervical back: Normal range of motion. Comments: Ambulating with Rollator walker. LLE trace edema Skin: General: Skin is warm and dry. Neurological: Mental Status: She is alert and oriented to person, place, and time. Allergies Allergen Reactions ??? Tfwcjew-Suu-Iog Reductase Inhibitors Muscle pain ??? Prednisone ??? [...] Rfl: ??? benazepriL (LOTENSIN) 10 mg tablet, Take 0.5 tablets (5 mg total) by mouth daily, Disp: 90 tablet, Rfl: 3 ??? escitalopram [...] 3 ??? rosuvastatin (CRESTOR) 10 mg tablet, TAKE 1 TABLET (10 MG TOTAL) BY MOUTH DAILY, Disp: 30 tablet, Rfl: 11 ??? warfarin (COUMADIN) 3 mg tablet, Take 3 mg by mouth daily. Take as directed per After Visit Summary., Disp: , Rfl: ??? metoprolol tartrate (LOPRESSOR) 25 mg immediate release tablet, Take 0.5 tablets (12.5 mg total) by mouth 2 (two) times a day, Disp: 15 tablet, Rfl: 11 No results found for: POTASSIUM, BUNSER, CREATININE, CHOL, TRIG, LDL, LDLCALC, HDL 06/15/2020 CMP showed K 4.0, BUN 12, creatinine 0.8, normal AST, ALT, alk-phos. 03/13/2021 POC lipid panel: TC 200, HDL 43, TG 141, LDL 128 07/12/2020 30 day event monitor, worn for [...] orders for this visit: Palpitations (Primary) - metoprolol tartrate (LOPRESSOR) 25 mg immediate release tablet; Take 0.5 tablets (12.5 mg total) by mouth 2 (two) times a day Labile hypertension - benazepriL (LOTENSIN) 10 mg tablet; Take 0.5 tablets (5 mg total) by mouth daily Coronary artery disease involving [place] coronary artery of [place] heart without angina pectoris Dyslipidemia Statin myopathy 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 (HCC) Chronic anticoagulation Plan/Recommendations: She has a history of palpitations. She wore an event monitor earlier this year showing underlying rhythm was sinus rhythm with some brief atrial runs that were asymptomatic. She was on atenolol a couple of years ago but it was stopped because of bradycardia. She is bothered by her elevated heart rate at rest and the sensation of palpitations so I recommend trying very low-dose metoprolol: Start metoprolol tartrate 12.5 mg b.i.d.. Reduce the benazepril to 5 mg daily to avoid hypotension. Check blood pressure and pulse an hour after the morning dose of metoprolol and keep a record for me. She has a history of coronary artery disease. She had some problems tolerating statins in the past,but has been able to tolerate rosuvastatin, and remains on aspirin 81 mg daily. She is not reporting any symptoms concerning for angina. She is very certain she has been taking the rosuvastatin dailybut unfortunately her LDL remains above goal. She does not want to increase the dose of rosuvastatin because of her history of myalgias. Therefore we will continue her rosuvastatin at the current dose of 10 mg a day and continue her aspirin daily. She remains on warfarin for a history of chronic DVT. INR is managed by PCP. She is not having any bleeding problems. Continue warfarin. I will arrange for her to have a telemedicine follow-up with me in 7-10 days to see how her blood pressure and heart rate has responded to the addition of metoprolol. Because of her history of bradycardia with atenolol, I want to watch her closely for this. I will also get her scheduled for future follow-up with Dr. Mclean in about 3 months. Codie Mathew, ANP- Nurse Practitioner with [facility] Cardiology This note is dictated and transcribed using [employer] Direct Software. Administrative Project Coordinator variancesmay occur. Despite proofreading, typographical errors may occur. documented in this encounter Miscellaneous Notes * Addendum Note - Richa Oliver MA - 03/13/2021 9:30 AM CDTAddended by: RICHA OLIVER on: 03/13/2021 11:58 AM Modules accepted: Orders documented in this encounter Plan of Treatment Not on file documented as of this encounter Procedures Procedure Name Priority Date/Time Associated Diagnosis Comments POCT LIPID PANEL Routine 03/13/2021 11:5 8 AM CDT Coronary artery disease involving [place] coronary artery of [place] heart without angina pectoris Dyslipidemia documented in this encounter Results * POCT lipid panel (03/13/2021 11:58 AM CDT) Cholesterol, POC 200 mg/dL HDL, POC 43 mg/dL Triglycerides, POC 141 mg/dL LDL Cholesterol POC 128 mg/dL Chol/HDL Ratio, POC 4.6 Non-HDL Cholesterol, POC 157 mg/dL Cholesterol Total, POC 200 mg/dL Capillary blood 03/13/2021 1 1:58 AM CDT Codie Mathew NP POINT OF CARE TEST ORDERA BLES Final Result documented in this encounter Visit Diagnoses Diagnosis Palpitations- Primary Labile hypertension Coronary artery disease involving [place] coronary artery of [place] heart without angina pectoris Dyslipidemia Other and unspecified hyperlipidemia Statin myopathy Toxic myopathy 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 (HCC) Chronic anticoagulation Encounter for long-term (current) use of anticoagulants documented in this encounter Discontinued Medications Medication Sig Discontinue Reason Start Date End Da te benazepriL (LOTENSIN) 10 mg tablet TAKE 1 TABLET BY MOUTH DAILY 01/23/2021 03/13/2021 documented as of this encounter Care Teams Type Bar And Segment Assembler Relationship Specialty Start Date End Date Sixto Terrazas MD PCP - General 09/21/16 05/01/22 documented as of this encounter
--- OUTSIDE RECORDS SUMMARY | 2024-06-08 20:54 | XMS_ITS | Encounter Summary ---
Author Organization [facility] Address [address] [place] [address] Care Team Providers Care Fashion Consultant Sales Name Role Phone Sixto Lund MD Primary Care Provider [phone] Encounter Details Date Type Department Care Team (Late st Contact Info) Description 07/25/2021 Telephone [facility] Cardiology [address] [place] [address] Ravinder Mclean MD [address] [facility] [address] [place] [address] Social History Tobacco Use Types Packs/Day Years Used Date Smoking Tobacco: Never Smokeless Tobacco: Never Alcohol Use Standard Drinks/Week Comments Yes 0 (1 standard drink = 0.6 oz pur e alcohol) PHQ-2 Answer Date Recorded PHQ-2 Score 1 05/28/2019 Comments Unknown Sex and Gender Information Value Date Recorded Sex Assigned at Not on file 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 Gender Identity Not on file Sexual Orientation Not on file documented as of this encounter Ordered Prescriptions Prescription Sig Dispense Quantity Refills Last Filled Start Date End Date benazepriL (LOTENSIN) 10 mg tabletIndications: Labile hypertension Take 1 tablet (10 mg total) by mouth daily 90 tablet 2 07/25/2021 10/06/2021 benazepriL (LOTENSIN) 10 mg tabletIndications: Labile hypertension Take 1 tablet (10 mg total) by mouth daily 30 tablet 07/25/2021 07/25/2021 documented in this encounter Miscellaneous Notes * Telephone Encounter - Jeanette Caballero MA - 07/25/2021 10:44 AM HAND MARKER Spoke with pt and sent med to local pharmacy and mail order pharmacy. MARKER * Telephone Encounter - Galo East - 07/25/2021 8:59 AM CST Pt requesting a call from Valeria Lopez in regard to medication Benazepril.Thank you Contact:[phone] MARKER documented in this encounter Plan of Treatment Not on file documented as of this encounter Visit Diagnoses Diagnosis Labile hypertension documented in this encounter Discontinued Medications Medication Sig Discontinue Reason Start Date End Da te benazepriL (LOTENSIN) 10 mg tabletIndications:Labile hypertension Take 1 tablet (10 mg total) by mouth daily Reorder 07/12/2021 07/25/2021 benazepriL (LOTENSIN) 10 mg tabletIndications:Labile hypertension Take 1 tablet (10 mg total) by mouth daily Reorder 07/25/2021 07/25/2021 documented as of this encounter Care Teams Fashion Consultant Sales Relationship Specialty Start Date End Date Sixto Lund MD PCP - General 09/21/16 05/01/22 documented as of this encounter
--- OUTSIDE RECORDS SUMMARY | 2024-06-08 20:54 | XMS_ITS | Encounter Summary ---
Author Organization [facility] Address [address] [facility] [address] [place] [address] Care Team Providers Care Business Analytics Director Name Role Phone Sixto Lund MD Primary Care Provider Encounter Details Date Type Department Care Team (Late st Contact Info) Description 08/03/2020 Telephone [facility] Cardiology [address] [place] [address] Ravinder Mclean MD [address] [facility] [address] [place] [address] Social History Tobacco Use Types Packs/Day Years Used Date Smoking Tobacco: Never Smokeless Tobacco: Never Alcohol Use Standard Drinks/Week Comments Yes 0 (1 standard drink = 0.6 oz pur e alcohol) PHQ-2 Answer Date Recorded PHQ-2 Score 1 05/28/2019 Comments Unknown Sex and Gender Information Value Date Recorded Sex Assigned at Not on file Legal Sex 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 PAINT MIXER HAND Gender Identity Not on file Sexual Orientation Not on file documented as of this encounter Miscellaneous Notes * Telephone Encounter - Sandy Peace RN - 08/03/2020 9:14 AM CST Spoke with patient, reviewed AD note about ECHO with patient. Answered all questions. Patient verbalized understanding and verified her next appointment with CT. T MIXER HAND * Telephone Encounter - Sandy Peace RN - 08/03/2020 9:14 AM CST ----- Message from Ravinder Mclean MD sent at 08/03/2020 8:53 AM PAINT MIXER HAND ----- EF normal 65-70%, mild thickening of the left ventricle. Chamber size otherwise normal, mild stenosis of aortic valve which is not an issue at this time. Will continue to monitor on routine basis as clinically appropriate. Pressures in the lungs are normal. Primary issue relates to at least moderate mitral regurgitation. Will need to continue to monitor on routine basis in this regard clinically and by echocardiogram as appropriate. T MIXER HAND documented in this encounter Plan of Treatment Not on file documented as of this encounter Visit Diagnoses Not on filedocumented in this encounter Care Teams Business Analytics Director Relationship Specialty Start Date End Date Sixto Lund MD PCP - General 09/21/16 05/01/22 documented as of this encounter
--- OUTSIDE RECORDS SUMMARY | 2024-06-08 20:54 | XMS_ITS | Encounter Summary ---
Author Organization [facility] Address [address] [facility] [address] [place] [address] Care Team Providers Care Art Appraiser Name Role Phone Sixto Lund MD Primary Care Provider [phone] Encounter Details Date Type Department Care Team (Late st Contact Info) Description 05/29/2021 Telephone [facility] Cardiology [address] [place] [address] Ravinder Mclean MD [address] [facility] [address] [place] [address] Social History Tobacco Use Types Packs/Day Years Used Date Smoking Tobacco: Never Smokeless Tobacco: Never Alcohol Use Standard Drinks/Week Comments Yes 0 (1 standard drink = 0.6 oz pur e alcohol) PHQ-2 Answer Date Recorded PHQ-2 Score 1 05/28/2019 Comments Unknown Sex and Gender Information Value Date Recorded Sex Assigned at Not on file Legal Sex 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 TRANSONIC ENGINEER Gender Identity Not on file Sexual Orientation Not on file documented as of this encounter Miscellaneous Notes * Telephone Encounter - Harshil Adler RN - 05/29/2021 1:01 PM TRANSONIC ENGINEER I spoke w/ the pt she is having major anxiety she states over her HR being 59 one time after she just woke up, she states she obsesses over it and even when she was told not to check it multiple times, she still does. Pt is on anxiety medication as needed. I went over everything and let her know aslong as her HR doesn't remain low, its normal and ok for HR to be high or low, we just dont want itto remain low. But 59 is ok, especially if she just woke up. Pt verbalized understanding and feels better after talking to me she states. SONIC ENGINEER * Telephone Encounter - Galo [place] - 05/29/2021 10:23 AM CST Pt called requesting a call from a nurse states in regard to here BP and HR states BP 136/68 and HR63 but she feels lightheaded.please advise,Thank you Contact:[phone] SONIC ENGINEER documented in this encounter Plan of Treatment Not on file documented as of this encounter Visit Diagnoses Not on filedocumented in this encounter Care Teams Art Appraiser Relationship Specialty Start Date End Date Sixto Lund MD PCP - General 09/21/16 05/01/22 documented as of this encounter
--- OUTSIDE RECORDS SUMMARY | 2024-06-08 20:54 | XMS_ITS | Encounter Summary ---
Author Organization [facility] Address [address] [place] [address] Care Team Providers Care Fluxer Name Role Phone Jose A Lakhani DO Primary Care Provider Reason for Visit * Reason Onset Date Comments Event monitor result 08/29/2023 Encounter Details Date Type Department Care Team (Late st Contact Info) Description 08/29/2023 Documentation [facility] Cardiology [address] [place] [address] Codie Mathew NP [address] [place] [address] Event monitor result Social History Tobacco Use Types Packs/Day Years Used Date Smoking Tobacco: Never Smokeless Tobacco: Never Alcohol Use Standard Drinks/Week Comments Yes 0 (1 standard drink = 0.6 oz pur e alcohol) PHQ-2 Answer Date Recorded PHQ-2 Score 1 05/28/2019 Comments Unknown Sex and Gender Information Value Date Recorded Sex Assigned at Not on file Legal Sex 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 Sinus nodefunction was normal. Severe bradycardia was not observed. Chronotropic incompetence was not observed. Pauses longer than 3 seconds were not observed. AV conduction was normal. Significant AV block was not observed. There were 9 episodes of asymptomatic nonsustained atrial tachycardia observed. The longest episode was 6.1 seconds on June 26 and the fastest episode was 181 bpm on July 01. PAC burden was 2%. Atrial fibrillation and flutter burden was 0%. PVC burden was <1%. There were no episodes of nonsustained ventricular tachycardia observed. There were 11 patient triggered events. Symptoms reported: Swelling in legs, palpitations, increase in cough. Events correlated with sinus rhythm. PLANNER documented in this encounter Plan of Treatment Not on file documented as of this encounter Visit Diagnoses Not on filedocumented in this encounter Care Teams Fluxer Relationship Specialty Start Date End Date Jose A Lakhani DO [address] [place] [address] PCP - General Family Medicine 05/15/23 documented as of this encounter
--- OUTSIDE RECORDS SUMMARY | 2024-06-08 20:54 | XMS_ITS | Referral Summary ---
Author Organization [facility] [address] [place] [address] 162 [address] [facility] [address] [place] [address] Care Team Providers Care Customer Relations Advisor Name Role Phone Jose A Lakhani Primary Care Provider Encounters Date Type Department Care Team Description 04/30/2024 10:15 AM INVESTIGATIVE RESEARCH SPECIALIST Ancillary Procedure [facility] Medical [facility] Cardiology [address] [facility] [address] [place] [address] Nonrheumatic aortic valve stenosis; Coronary artery disease involving [place] coronary artery of [place] heart without angina pectoris; Primary hypertension 04/20/2024 11:00 AM CDT Office Visit [facility] Cardiology [address] [place] [address] [address] [place] [address] Roosevelt Payan MD Nonrheumatic aortic valve stenosis (Primary Dx); Mixed hyperlipidemia; Coronary artery disease involving [place] coronary artery of [place] heart without angina pectoris; Primary hypertension from Last 3 Months Allergies Active Allergy Reactions Criticality Noted Date Comments Jono Inhibitors Unknown 09/06/2021 Amoxicillin Unknown 09/07/2021 Aspirin Unknown 09/06/2021 Ciprofloxacin Unknown 09/06/2021 Fesoterodine Unknown 09/06/2021 Prednisone Propoxyphene-Acetaminophen Hlacagi-Nqu-Unm Reductase Inhibitors Muscle pain Medium 05/20/2017 Sulfamethoxazole-Trimethoprim Unknown 2021 Medications aspirin 81 mg tablet Take 1 tablet (81 mg total) by mouth daily Active rosuvastatin (CRESTOR) 10 mg tabletIndicatio ns:Dyslipidemia Take 1 tablet (10 mg total) by mouth daily 90 tablet 2 12/21/2021 Active nitroglycerin (NITROSTAT) 0.4 mg SL tabletIndicatio ns:Coronary artery disease of [place] artery of [place] heart with stable angina pectoris (HCC) Place [...] (09/29/2016): Anxiety Coronary artery disease invo lving [place] coronary artery of [place] heart without angina pectoris 05/17/2015 Overview (09/29/2016): Coronary artery disease involving [place] coronary artery of [place] heart with other form of angina pectoris Orthostatic hypotension 05/17/2015 Overview (09/29/2016): Orthostatic hypotension Primary hypertension 01/13/2014 Overview (09/29/2016): HTN (hypertension), benign Resolved Problems Problem Noted Date Diagnosed Date Resolved Date Dyslipidemia 08/10/2015 06/21/2021 Overview (09/29/2016): Mixed dyslipidemia Recurrent falls 05/17/2015 03/19/2017 Overview (09/29/2016): Frequent falls Social History Tobacco Use Types Packs/Day Years [...] on file Legal Sex 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 INVESTIGATIVE RESEARCH SPECIALIST Gender Identity Not on file Sexual Orientation Not on file Last Filed Vital Signs Vital Sign Reading Time Taken Comments Blood Pressure 136/86 04/30/2024 11:15 AM INVESTIGATIVE RESEARCH SPECIALIST Pulse 93 04/20/2024 10:35 AM CDT Temperature 36.1 ??C (97 ??F) 07/27/2020 9:10 AM INVESTIGATIVE RESEARCH SPECIALIST Respiratory Rate 16 05/28/2019 10:10 AM INVESTIGATIVE RESEARCH SPECIALIST Oxygen Saturation 97% 04/20/2024 10:35 AM CDT Inhaled Oxygen Concentration - - Weight 61.8 kg (136 lb 4.8 oz) 04/20/2024 10:35 AM CDT Height 165.1 cm (5' 5 ) 04/20/2024 10:35 AM CDT Body Mass Index 22.68 04/20/2024 10:35 AM CDT Plan of Treatment Not on file Procedures Procedure Name Priority Date/Time Associated Diagnosis Comments TRANSTHORACIC ECHO (TTE) COMPLETE W DOPPLER/CF WO CONTRAST Routine 04/30/2024 11:15 AM INVESTIGATIVE RESEARCH SPECIALIST Nonrheumatic aortic valve stenosis Coronary artery disease involving [place] coronary artery of [place] heart without angina pectoris Primary hypertension from Last 3 Months Results * TRANSTHORACIC ECHO (TTE) COMPLETE W DOPPLER/CF WO CONTRAST (04/30/2024 11:15 AM INVESTIGATIVE RESEARCH SPECIALIST) Anatomical Region Laterality Modality Ultrasound 04/30/2024 10:4 0 AM INVESTIGATIVE RESEARCH SPECIALIST Narrative 04/30/2024 12:55 PM INVESTIGATIVE RESEARCH SPECIALIST [facility] Medical Group Cardiology [address] [facility] [address] [address] [address] [facility] [address], [place] [address] P:[phone] P:[phone] Echocardiographic Report Patient Name: LINDA GARZA : [birth year]57 Study Date: 04/30/2024 10:40:14 AM Gender: F Tech: Location: [facility] Provider: ROOSEVELT PAYAN ?Height(Cm): 165 BSA: 1.68 Weight(Kg): 61.7 Heart Rate: 70 BP: 136 / 86 Quality: Good Order Provider: ROOSEVELT PAYAN PROCEDURES: Echocardiographic Report: Transthoracic echocardiogram with complete 2D, M-Mode, and color Doppler examination. With Strain Analysis. INDICATIONS: I35.0 Nonrheumatic aortic (valve) stenosis, I25.10 Atherosclerotic heart disease of [place] coronary artery without angina pectoris, and I10 [...] FINDINGS: Interpretation Site: Exam was interpreted at [facility]. Left Ventricle: Normal left ventricular size. [...] Signed By: Tony Neville MD 2024-04-30 12:54:03 INVESTIGATIVE RESEARCH SPECIALIST Procedure Note Tony Neville MD - 04/30/2024 [facility] Medical Group Cardiology [address] [facility] [address] [address] [address] [facility] [address], [place] [address] P:[phone] P:[phone] Echocardiographic Report Patient Name: LINDA GARZA : 1940 Study Date: 04/30/2024 10:40:14 AM Gender: F Tech: Location: [facility] Provider: ROOSEVELT PAYAN Height(Cm): 165 BSA: 1.68 Weight(Kg): 61.7 Heart Rate: 70 BP: 136 / 86 Quality: Good Order Provider: ROOSEVELT PAYAN PROCEDURES: Echocardiographic Report: Transthoracic echocardiogram with complete 2D, M-Mode, and color Dopplerexamination. With Strain Analysis. INDICATIONS: I35.0 Nonrheumatic aortic (valve) stenosis, I25.10 Atherosclerotic heartdisease of [place] coronary artery without angina pectoris, and I10 [...] FINDINGS: Interpretation Site: Exam was interpreted at [facility]. Left Ventricle: Normal left ventricular size. [...] Signed By: Tony Neville MD 2024-04-30 12:54:03 INVESTIGATIVE RESEARCH SPECIALIST Roosevelt Payan MD CV ECHO PROCEDURES F inal Result from Last 3 Months Insurance MEDICARE [facility] MEDICARE [facility] Care Teams Customer Relations Advisor Relationship Specialty Start Date End Date Jose A Lakhani DO [address] [place] [address] PCP - General Family Medicine 05/15/23
--- OUTSIDE RECORDS SUMMARY | 2024-06-08 20:54 | XMS_ITS | Encounter Summary ---
Author Organization [facility] Address [address] [facility] [address] [place] [address] Care Team Providers Care Software Technician Name Role Phone Sixto Lund MD Primary Care Provider [phone] Encounter Details Date Type Department Care Team (Late st Contact Info) Description 07/25/2021 Orders Only [facility] Cardiology [address] [place] [address] Jeanette Caballero MA Social History Tobacco Use Types Packs/Day Years Used Date Smoking Tobacco: Never Smokeless Tobacco: Never Alcohol Use Standard Drinks/Week Comments Yes 0 (1 standard drink = 0.6 oz pur e alcohol) PHQ-2 Answer Date Recorded PHQ-2 Score 1 05/28/2019 Comments Unknown Sex and Gender Information Value Date Recorded Sex Assigned at Not on file Legal Sex 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 SSAS DEVELOPER Gender Identity Not on file Sexual Orientation Not on file documented as of this encounter Ordered Prescriptions Prescription Sig Dispense Quantity Refills Last Filled Start Date End Date benazepriL (LOTENSIN) 10 mg tablet Take 1 tablet (10 mg total) by mouth daily 30 tablet 3 07/25/2021 02/09/2022 documented in this encounter Plan of Treatment Not on file documented as of this encounter Visit Diagnoses Not on filedocumented in this encounter Care Teams Software Technician Relationship Specialty Start Date End Date Sixto Lund MD PCP - General 09/21/16 05/01/22 documented as of this encounter
--- OUTSIDE RECORDS SUMMARY | 2024-06-08 20:54 | XMS_ITS | Encounter Summary ---
Author Organization [facility] Medical Group Address [address] [facility] [address] [place] [address] Care Team Providers Care Heavy Threader Name Role Phone Sixto Terrazas MD Primary Care Provider [phone] Reason for Visit * Reason Comments Coronary Artery Disease 3 month follow u p. Encounter Details Date Type Department Care Team (Late st Contact Info) Description 02/01/2023 8:30 AM CDT Office Visit [facility] Cardiology [address] [place] [address] Codie Mathew NP [address] [place] [address] Coronary artery disease of [place] artery of [place] heart with stable angina pectoris (HCC); 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 (HCC); Chronic anticoagulation; Edema, lower extremity; Labile hypertension Social History [...] on file Legal Sex 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 FOOT SETTER Gender Identity Not on file Sexual Orientation Not on file documented as of this encounter Last Filed Vital Signs Vital Sign Reading Time Taken Comments Blood Pressure 146/74 02/01/2023 8:25 AM CDT Pulse 76 02/01/2023 8:25 AM CDT Temperature - - Respiratory Rate - - Oxygen Saturation 95% 02/01/2023 8:25 AM CDT Inhaled Oxygen Concentration - - Weight 68.5 kg (151 lb) 02/01/2023 8:25 AM CDT Height 165.1 cm (5' 5 ) 02/01/2023 8:25 AM CDT Body Mass Index 25.13 02/01/2023 8:25 AM CDT documented in this encounter Ordered Prescriptions Prescription Sig Dispense Quantity Refills Last Filled Start Date End Date nitroglycerin (NITROSTAT) 0.4 mg SL tabletIndications: Coronary artery disease of [place] artery of [place] heart with stable angina pectoris (HCC) Place 1 tablet (0.4 mg total) under the tongue every 5 (five) minutes as needed for chest pain May repeat dose q 5 min, up to 3 doses total 25 tablet 3 02/01/2023 documented in this encounter Progress Notes * Codie Mathew NP - 02/01/2023 8:30 AM CDT [facility] Cardiology [address] [place] [address] Date of Visit: 02/01/2023 Patient ID: Linda Garza [id number] Chief Complaint Patient presents with Coronary Artery Disease 3 month follow up. Linda Garza is a 82 y.o. female [...] on coumadin, chronic anxiety previously followed in [place]. 07/15/13 she returns today stating she has [...] noted in the 40's so sent to [facility] by Dr. Terrazas EKG done HR [...] nearly completely resolved seeing Vascular surgery in [place] and is feeling better overall. She is [...] that is why she followed me from [place] and still chooses to see me and [...] pain. Going to see Vascular surgeon in [place] very soon and having vascular studies at [...] under significant stress Still seeing vascular in [place], wrapping legs, gets occ swelling. Still has [...] right off bed [facility] L upper arm and weigh of [...] or just anxiety. Still seeing vascular in [place] told still needs wrap therapy but she [...] follow-up. [place] and [place] after that she [...] on average. 10/06/21 Had bad UTI in Jul really weak still getting better using walker, [...] the lower extremity by vascular surgeon in [place] in 2018. She has swelling in thelegs. 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 Records that I personally reviewed on the day of this visit include: (the interpretation is outlined in the HPI above) 09/28/[address] Mclean, 04/23/2022 office note from myself. I have also reviewed: allergies, current medications, [...] malaise/fatigue, weight gain and weight loss. Cardiovascular: Positive for chest pain and leg swelling. Negative for claudication, dyspnea on exertion, near-syncope, orthopnea, palpitations, paroxysmal nocturnal dyspnea and syncope. Respiratory: Negative for cough, shortness of breath and sleep disturbances due to breathing. Endocrine: Positive for cold intolerance. Hematologic/Lymphatic: Negative for bleeding problem. Bruises/bleeds easily. Gastrointestinal: Positive for bloating. Neurological: Negative for dizziness and light-headedness. Vital Signs: BP 146/74 (BP Location: Left arm, Patient Position: Sitting) Pulse 76 Ht 165.1 cm (5' 5 ) Wt 68.5 kg (151 lb) SpO2 95% BMI 25.13 kg/m?? Physical Exam Constitutional: General: She is [...] Edema (mild) present. Left lower leg: Edema (1-2+ ankle extending 3 above ankle) present. Skin: General: Skin is warm and dry. Neurological: Mental Status: She is alert and oriented to person, place, and time. Psychiatric: Mood and Affect: Mood normal. Behavior: Behavior normal. Allergies Allergen Reactions Ilvaijn-Uxc-Vql Reductase Inhibitors Muscle pain Prednisone Propoxyphene-Acetaminophen Current Outpatient Medications: ALPRAZolam (XANAX) 1 mg tablet, take 1 tablet by oral route every day as needed (Patient taking differently: Take 1 tablet (1 mg total) by mouth 3 (three) times a day as needed), Disp: 0, Rfl: 0 aspirin 81 mg tablet, Take 1 tablet (81 mg total) by mouth daily, Disp: , Rfl: benazepril-hydroCHLOROthiazide (LOTENSIN HCT) 10-12.5 mg per tablet, Take 1 tablet by mouth daily, Disp: , Rfl: warfarin (COUMADIN) 3 mg tablet, Take 1 tablet (3 mg total) by mouth daily Take as directed per After Visit Summary., Disp: , Rfl: cephalexin (KEFLEX) 250 mg capsule, , Disp: [...] mouth daily, Disp: 90 tablet, Rfl: 2 No results found for: POTASSIUM, BUNSER, CREATININE, CHOL, TRIG, LDL, LDLCALC, HDL No results found for: WBC, HGB, HCT, MCV, PLT No results found for this or any previous visit (from the past 4 hour(s)). Assessment: Diagnoses and all orders for this visit: Coronary artery disease of [place] artery of [place] heart with stable angina pectoris (HCC) - nitroglycerin (NITROSTAT) 0.4 mg SL tablet; Place 1 tablet (0.4 mg total) under the tongue every 5 (five) minutes as needed for chest pain May repeat dose q 5 min, up to 3 doses total 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 (HCC) Chronic anticoagulation Edema, lower extremity Labile hypertension Plan/Recommendations: She has used sublingual nitroglycerin on a couple of occasions for chest pain which seems to be related to emotions. Coronary artery disease appears stable at this time. Continue aspirin and rosuvastatin. She is on chronic anticoagulation with for history of DVT. PCP manages her INR. She denies any bleeding problems and is not falling. Continue warfarin. She has mild lower extremity edema, worse on the left leg which was affected by childhood polio andhad surgeries. The leg does not look like typical lymphedema but with the history of surgeries, thelymph system in that leg could definitely be affected. Currently she is using furosemide about 3 times per week to help manage this and she knows how to wrap her leg herself if needed. Blood pressure reading today is appropriate for her age. I recommend she continue her benazepril/HCTZ. Return to the office to see Dr. Mclean in 3 months. Call us sooner with questions or concerns. 02/01/2023 RASHAD Gil- Nurse Practitioner with [facility] Card[facility] This note is dictated and transcribed using [employer] Direct Software. [employer] Wiring Technician variancesmay occur. Despite proofreading, typographical errors may occur. documented in this encounter Plan of Treatment Not on file documented as of this encounter Visit Diagnoses Diagnosis Coronary artery disease of [place] artery of [place] heart with stable angina pectoris (HCC) 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 (HCC) Chronic anticoagulation Encounter for long-term (current) use of anticoagulants Edema, lower extremity Labile hypertension documented in this encounter Discontinued Medications Medication Sig Discontinue Reason Start Date End Da te benazepriL (LOTENSIN) 10 mg tablet Take 1 tablet (10 mg total) by mouth daily Formulary change 02/09/2022 02/01/2023 nitroglycerin (NITROSTAT) 0.4 mg SL tabletIndications:Aviles ry artery disease involving [place] coronary artery of [place] heart without angina pectoris Place 1 tablet (0.4 mg total) under the tongue every 5 (five) minutes as needed for chest pain May repeat dose q 5 min, up to 3 doses total Reorder 11/02/2020 02/01/2023 documented as of this encounter Care Teams Heavy Threader Relationship Specialty Start Date End Date Sixto Terrazas MD PCP - General Internal Medicine 05/02/22 05/14/23 documented as of this encounter
--- OUTSIDE RECORDS SUMMARY | 2024-06-08 20:55 | XMS_ITS | Encounter Summary ---
Author Organization [facility] Address [address] [facility] [address] [place] [address] Care Team Providers Care Wired Music Operator Name Role Phone Sixto Lund MD Primary Care Provider Encounter Details Date Type Department Care Team (Late st Contact Info) Description 05/07/2018 Telephone [facility] [address] [facility] [address] [place] [address] Codie Mathew NP [address] [address] Social History Tobacco Use Types Packs/Day Years Used Date Smoking Tobacco: Never Smokeless Tobacco: Never Alcohol Use Standard Drinks/Week Comments Yes 0 (1 standard drink = 0.6 oz pur e alcohol) Comments Unknown Sex and Gender Information Value Date Recorded Sex Assigned at Not on file Legal Sex 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 VEGETABLE BUNCHER Gender Identity Not on file Sexual Orientation Not on file documented as of this encounter Miscellaneous Notes * Telephone Encounter - Oliva Ramsey RN - 05/07/2018 12:37 PM VEGETABLE BUNCHER Told pt that recall is for losartan/ HCTZ TABLE BUNCHER * Telephone Encounter - Leticia Dial - 05/07/2018 11:45 AM VEGETABLE BUNCHER Pt says there is a news report stating there is a recall on hydrochlorothiazide, pt will like a call back to discuss, pt cb [phone] TABLE BUNCHER documented in this encounter Plan of Treatment Not on file documented as of this encounter Visit Diagnoses Not on filedocumented in this encounter Care Teams Wired Music Operator Relationship Specialty Start Date End Date Sixto Lund MD PCP - General 09/21/16 05/01/22 documented as of this encounter
--- OUTSIDE RECORDS SUMMARY | 2024-06-08 20:55 | XMS_ITS | Encounter Summary ---
Author Organization [facility] Address [address] [facility] [address] [place] [address] Care Team Providers Care Invasive Cardiologist Name Role Phone Sixto Lund MD Primary Care Provider [phone] Encounter Details Date Type Department Care Team (Late st Contact Info) Description 11/27/2016 Telephone [facility] [address] [address] [address] [place] [address] Ravinder Mclean MD [address] [place] [address] [address] [place] [address] Social History Tobacco Use Types Packs/Day Years Used Date Smoking Tobacco: Never Alcohol Use Standard Drinks/Week Comments Yes 0 (1 standard drink = 0.6 oz pur e alcohol) Comments Unknown Sex and Gender Information Value Date Recorded Sex Assigned at Not on file Legal Sex 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 ENOLOGIST Gender Identity Not on file Sexual Orientation Not on file documented as of this encounter Miscellaneous Notes * Telephone Encounter - Teressa Saucedo - 05/14/2017 2:42 PM CST Error OGIST documented in this encounter Plan of Treatment Not on file documented as of this encounter Visit Diagnoses Not on filedocumented in this encounter Care Teams Invasive Cardiologist Relationship Specialty Start Date End Date Sixto Lund MD PCP - General 09/21/16 05/01/22 documented as of this encounter
--- OUTSIDE RECORDS SUMMARY | 2024-06-08 20:55 | XMS_ITS | Encounter Summary ---
Author Organization [facility] Medical Group Address [address] [facility] [address] [place] [address] Care Team Providers Care Sanding Machine Tender Automatic Name Role Phone Sixto Lund MD Primary Care Provider [phone] Encounter Details Date Type Department Care Team (Late st Contact Info) Description 11/27/2016 Telephone [facility] [address] [address] [address] [place] [address] Ravinder Mclean MD [address] [place] [address] [address] [place] [address] Social History Tobacco Use Types Packs/Day Years Used Date Smoking Tobacco: Never Alcohol Use Standard Drinks/Week Comments Yes 0 (1 standard drink = 0.6 oz pur e alcohol) Comments Unknown Sex and Gender Information Value Date Recorded Sex Assigned at Not on file Legal Sex 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 BROADCAST CHECKER Gender Identity Not on file Sexual Orientation Not on file documented as of this encounter Miscellaneous Notes * Telephone Encounter - Heike Pastrana RN - 11/27/2016 11:26 AM CDT LMOM for pt to return call; Made aware that cholesterol results were very high; Asked if she would be willing to consider injectable medication repatha for lipid control; Will await a return call. * Telephone Encounter - Heike Pastrana RN - 11/27/2016 11:26 AM CDT ----- Message from Ravinder Mclean MD sent at 11/26/2016 5:15 PM CDT ----- Lipids very high. Please contact patient and inquire if she would be interested/willing to considerRepatha for lipid control. documented in this encounter Plan of Treatment Not on file documented as of this encounter Visit Diagnoses Not on filedocumented in this encounter Care Teams Sanding Machine Tender Automatic Relationship Specialty Start Date End Date Sixto Lund MD PCP - General 09/21/16 05/01/22 documented as of this encounter
--- OUTSIDE RECORDS SUMMARY | 2024-06-08 20:55 | XMS_ITS | Encounter Summary ---
Author Organization [facility] Medical Group Address [address] [facility] [address] [place] [address] Care Team Providers Care Livestock Dealer Name Role Phone Sixto Lund MD Primary Care Provider [phone] Encounter Details Date Type Department Care Team (Late st Contact Info) Description 09/18/2017 Telephone [facility] [address] [facility] [address] [place] [address] Ravinder Mclean MD [address] [facility] [address] [place] [address] Social History Tobacco Use Types Packs/Day Years Used Date Smoking Tobacco: Never Smokeless Tobacco: Never Alcohol Use Standard Drinks/Week Comments Yes 0 (1 standard drink = 0.6 oz pur e alcohol) Comments Unknown Sex and Gender Information Value Date Recorded Sex Assigned at Not on file Legal Sex 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 MORTGAGE SERVICING SPECIALIST Gender Identity Not on file Sexual Orientation Not on file documented as of this encounter Miscellaneous Notes * Telephone Encounter - Oliva Ramsey RN - 09/18/2017 2:51 PM CDT Pt thinks her BP is too low, told her BP readings were good for the most part. She denies increasedfatigue, no dizziness. Patient reports that since HCTZ was added and benazepril was increased to 20mg daily, BP reading are too low. (pt was taking benazepril 20 mg, 1/2 tablet , when she was seen in office, ) Told her I think there was a typo and patient was supposed to continue 10 mg of benazepril. She will try that and continue to monitor BP. Pt reports one episode of stabbing chest pain that she took NTG for and it resolved. Pt reports that she has a lot of anxiety because her isin a fci. * Telephone Encounter - Beatriz Carter MA - 09/18/2017 1:38 PM CDT Patient calling with blood pressure readings since she was started on HCTZ, BP: 108/59 HR 89, 1pm BP 113/59 HR irreg 89, bp 8am 122/69, pt did not take benazapril last night, 09/13/17 pts bp 119/52 and pt states she had cp and palps, pt thinks that her bp is too low now and would like a call back documented in this encounter Plan of Treatment Not on file documented as of this encounter Visit Diagnoses Not on filedocumented in this encounter Care Teams Livestock Dealer Relationship Specialty Start Date End Date Sixto Lund MD PCP - General 09/21/16 05/01/22 documented as of this encounter
--- OUTSIDE RECORDS SUMMARY | 2024-06-08 20:55 | XMS_ITS | Encounter Summary ---
Author Organization [facility] Address [address] [place] [address] Care Team Providers Care Oxygen Equipment Preparer Name Role Phone Sixto Terrazas MD Primary Care Provider [phone] Reason for Visit * Reason Comments Follow-up 3 mo follow up on CA D, DVT, HTN, palps Encounter Details Date Type Department Care Team (Late st Contact Info) Description 02/17/2018 3:15 PM CDT Office Visit [facility] [address] [place] [id number] Ravinder Mclean MD [address] [facility] [address] [place], [place] [id number] Coronary artery disease involving [place] coronary artery of [place] heart without angina pectoris (Primary Dx); 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 (CMS/HCC); Chronic anticoagulation; Bradycardia; History of fall; Dyslipidemia; Labile hypertension; Palpitations; PVC (premature ventricular contraction); Statin intolerance Social History Tobacco Use Types Packs/Day Years Used Date Smoking Tobacco: Never Smokeless Tobacco: Never Alcohol Use Standard Drinks/Week Comments Yes 0 (1 standard drink = 0.6 oz pur e alcohol) Comments Unknown Sex and Gender Information Value Date Recorded Sex Assigned at Not on file Legal Sex 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 Gender Identity Not on file Sexual Orientation Not on file documented as of this encounter Last Filed Vital Signs Vital Sign Reading Time Taken Comments Blood Pressure 136/72 02/17/2018 3:28 PM CDT Pulse 105 02/17/2018 3:28 PM CDT Temperature - - Respiratory Rate - - Oxygen Saturation 94% 02/17/2018 3:28 PM CDT Inhaled Oxygen Concentration - - Weight 71.2 kg (157 lb) 02/17/2018 3:28 PM CDT Height 165.1 cm (5' 5 ) 02/17/2018 3:28 PM CDT Body Mass Index 26.13 02/17/2018 3:28 PM CDT documented in this encounter Ordered Prescriptions Prescription Sig Dispense Quantity Refills Last Filled Start Date End Date rosuvastatin (CRESTOR) 10 mg tablet Take 1 tablet (10 mg total) by mouth daily. 30 tablet 11 02/17/2018 02/10/2019 documented in this encounter Progress Notes * Ravinder Mclean MD - 02/17/2018 3:15 PM CDT [facility] DATE OF VISIT: 02/17/2018 CHIEF COMPLAINT Chief Complaint Patient presents with ??? Follow-up 3 mo follow up on CAD, DVT, HTN, palps HPI Linda Garza is a 77 y.o. female with a PMHx of CAD LAD stent, h/o 80% RCA stenosis, HTN, dyslipidemia, chronic recurrent atypical CP, h/o LUE DVT on coumadin, chronic anxiety previously followed in [place]. 07/15/13 she returns today stating she has [...] noted in the 40's so sent to [place] ER by Dr. Terrazas EKG done HR [...] nearly completely resolved seeing Vascular surgery in [place] and is feeling better overall. She is [...] that is why she followed me from [place] and still chooses to see me and [...] pain. Going to see Vascular surgeon in [place] very soon and having vascular studies at [...] under significant stress Still seeing vascular in [place], wrapping legs, gets occ swelling. Still has [...] especially in her foot. Wearing compression stockings. MEDICAL HISTORY Past Medical History: Diagnosis Date ??? Cardiovascular disease Coronary Artery Disease ??? HX OTHER MEDICAL Chronic Anxiety ??? HX OTHER MEDICAL DVT: LUE ??? Hypertension Hypertension ??? Hypothyroidism Hypothyroidism Social History Substance Use Topics ??? Smoking status: Never Smoker ??? Smokeless tobacco: Never Used ??? Alcohol use Yes History reviewed. No pertinent family history. MEDICATIONS HOME MEDICATIONS : ALPRAZolam (XANAX) 1 mg tablet aspirin 325 mg tablet benazepril (LOTENSIN) 10 mg tablet escitalopram (LEXAPRO) 5 mg tablet hydroCHLOROthiazide (HYDRODIURIL) 25 mg tablet warfarin (COUMADIN) 3 mg tablet rosuvastatin (CRESTOR) 10 mg tablet HYDROcodone-acetaminophen (VICODIN) 5-300 mg per tablet ALLERGIES Allergies Allergen Reactions ??? Gavwtlx-Jsf-Owv Reductase Inhibitors Muscle pain ??? Prednisone ??? Propoxyphene-Acetaminophen REVIEW OF SYSTEMS Review of Systems Constitution: Positive for malaise/fatigue and weight gain. Negative for decreased appetite, diaphoresis, fever, weakness and night sweats. HENT: Negative for hearing loss and nosebleeds. Eyes: Negative for blurred vision and pain. Cardiovascular: Positive for chest pain, leg swelling and palpitations. Negative for claudication, dyspnea on exertion, irregular heartbeat, near-syncope, orthopnea and syncope. Respiratory: Negative for cough, hemoptysis, shortness of breath, snoring and wheezing. Endocrine: Negative for cold intolerance and heat intolerance. Hematologic/Lymphatic: Negative for bleeding problem. Does not bruise/bleed easily. Skin: Negative for color change, itching, rash and suspicious lesions. Musculoskeletal: Positive for arthritis, falls and joint pain. Negative for muscle weakness and myalgias. Gastrointestinal: Negative for abdominal pain, heartburn, hematemesis, melena and nausea. Genitourinary: Negative for dysuria, hematuria and nocturia. Neurological: Positive for dizziness. Negative for excessive daytime sleepiness, focal weakness, headaches, light-headedness and loss of balance. Psychiatric/Behavioral: Negative for altered mental status, depression and memory loss. The patientis nervous/anxious. Allergic/Immunologic: Negative for environmental allergies. PHYSICAL EXAM Vitals BP 136/72 (BP Location: Right arm, Patient Position: Sitting) Pulse 105 Ht 165.1 cm (5' 5 ) Wt 71.2 kg (157 lb) SpO2 94% BMI 26.13 kg/m?? Weight: 71.2 kg (157 lb) Height: 165.1 cm (5' 5 ) Body mass index is 26.13 kg/m??. Physical Exam Constitutional: She is oriented [...] distension and no mass. There is no tenderness. There is no rebound and no guarding. Musculoskeletal: Normal range of motion. She exhibits edema. She exhibits no tenderness or deformity. 1+ bilateral LE edema to mid vogel LLE with compression stocking to just below [...] visit. Latest known visit with results is: Orders Only on 08/08/2017 Component Date Value Ref Range Status ??? SCRIBED Cholesterol, Total 08/08/2017 363* 0 - 200 Final ??? SCRIBED HDL 08/08/2017 53 35 - 96 Final ??? SCRIBED LDL 08/08/2017 291* 0 - 130 Final ??? SCRIBED Triglycerides 08/08/2017 95 0 - 150 Final Results for orders placed or performed in visit on 08/08/17 Lipid panel Result Value Ref Range SCRIBED Cholesterol, Total 363 (A) 0 - 200 SCRIBED HDL 53 35 - 96 SCRIBED LDL 291 (A) 0 - 130 SCRIBED Triglycerides 95 0 - 150 Personally reviewed EKG, Echocardiogram, heart monitor 02/2017 occ PVC's, underlying SR, and bloodwork/lipids. ASSESSMENT Diagnoses and all orders for this visit: Coronary artery disease involving [place] coronary artery of [place] heart without angina pectoris (Primary) 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 (CMS/HCC) Chronic anticoagulation Bradycardia History of fall Dyslipidemia - Lipid panel; Future Labile hypertension Palpitations PVC (premature ventricular contraction) Statin intolerance - Lipid panel; Future Other orders - rosuvastatin (CRESTOR) 10 mg tablet; Take 1 tablet (10 mg total) by mouth daily. PLAN/RECOMMENDATIONS 1. No anginal sxs. Aggressive CAD risk modification counseling performed. Continue current medical therapy. Notify office immediately with anginal symptoms. 2. Lipids personally reviewed LDL 291 08/08/17 which is markedly elevated. Pt not willing to try other statins due to severe myalgias Intolerant to Pravastatin, Simvastatin, and Atorvastatin. PCSK9 inhibitor therapy most reasonable option. She states she won't give herself an injection which leave Rosuvastatin as a potential option which she is willing to try. Will start 10mg qhs and observe tolerance and recheck fasting lipid panel in 2 months. 3. If palps more frequent or severe repeat monitor car operator. Personally reviewed 7day monitor from01/2017. 4. BP reasonably controlled on improved on repeat check. Continue Benazepril 10mg daily, states 20mg drops BP too much. Given confusion with taking Spironolactone-HCTZ QOD sort of as she states will attempt to simply regimen for her as she desires. Advised will need to monitor electrolytes closely. Will obtain BMP in 2-4 weeks. Monitor BP on routine basis. Call with readings or any other concerns immediately including uncontrolled BP or worsening edema. Continue consistent cardiovascular exercise, weight loss, medication compliance, and low-sodium diet. 6. Remains off BB given symptomatic bradycardia and hypotension. Given increase in palps and stableHR discussed resuming very low dose of BB if sxs persist. Contact office for further recommendations based upon her sxs. 7. Cont to follow up with vascular as scheduled and communicate with me about her progress. Over 50% of this visit counseling CAD, HTN, lipids, medications, lifestyle modification. Follow up in the office in 2 months or sooner as needed. Thank you for allowing me the privilege of participating in the care this very pleasant patient. Please do not hesitate to contact me with any additional questions or concerns. Sonia Mclean MD, [facility] documented in this encounter Plan of Treatment Not on file documented as of this encounter Visit Diagnoses Diagnosis Coronary artery disease involving [place] coronary artery of [place] heart without angina pectoris- Primary 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 (HCC) Chronic anticoagulation Encounter for long-term (current) use of anticoagulants Bradycardia Other specified cardiac dysrhythmias History of fall Personal history of fall Dyslipidemia Other and unspecified hyperlipidemia Labile hypertension Palpitations PVC (premature ventricular contraction) Other premature beats Statin intolerance documented in this encounter Discontinued Medications Medication Sig Discontinue Reason Start Date End Da te HYDROcodone-acetaminop hen (VICODIN) 5-300 mg per tablet take 1 tablet by oral route every 4 - 6 hours as needed for pain Discontinued by another clinician 01/13/2014 02/17/2018 documented as of this encounter Care Teams Oxygen Equipment Preparer Relationship Specialty Start Date End Date Sixto Terrazas MD PCP - General 09/21/16 05/01/22 documented as of this encounter
--- OUTSIDE RECORDS SUMMARY | 2024-06-08 20:55 | XMS_ITS | Encounter Summary ---
Author Organization [facility] Address [address] [place] [address] Care Team Providers Care Industrial Gas Production Operator Name Role Phone Sixto Lund MD Primary Care Provider [phone] Reason for Visit * Diagnostic Imaging (Routine) - Closed Specialty Diagnoses / Procedures Referred By Contac t Referred To Contact Diagnoses Coronary artery disease involving [place] coronary artery of [place] heart without angina pectoris Labile hypertension Dyslipidemia Diaphoresis Procedures NM MPI SPECT (Rest and/or Stress) Multiple Studies Ravinder Mclean MD Phone: tel: fax: [facility] Referral ID Status Reason Start Date Expiration Date Visits Re quested Visits Authorized [id number] Closed 08/07/2018 02/16/2020 5 5 Encounter Details Date Type Department Care Team (Latest Contact Info) Description 08/18/2018 8:15 AM STUNT DOUBLE Ancillary Procedure [facility] Medical [facility] Cardiology [address] [place] [id number] Coronary artery disease involving [place] coronary artery of [place] heart without angina pectoris; Labile hypertension; Dyslipidemia; Diaphoresis Social History Tobacco Use Types Packs/Day Years Used Date Smoking Tobacco: Never Smokeless Tobacco: Never Alcohol Use Standard Drinks/Week Comments Yes 0 (1 standard drink = 0.6 oz pur e alcohol) Comments Unknown Sex and Gender Information Value Date Recorded Sex Assigned at Not on file Legal Sex 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 STUNT DOUBLE Gender Identity Not on file Sexual Orientation Not on file documented as of this encounter Plan of Treatment Not on file documented as of this encounter Procedures Procedure Name Priority Date/Time Associated Diagnosis Comments NM MPI SPECT (REST AND/OR STRESS) MULTIPLE STUDIES Schedule Routine, Read Routine (OP Routine) 08/18/2018 10:23 AM STUNT DOUBLE Coronary artery disease involving [place] coronary artery of [place] heart without angina pectoris Labile hypertension Dyslipidemia Diaphoresis documented in this encounter Results * NM MPI SPECT (Rest and/or Stress) Multiple Studies (08/18/2018 10:23 AM STUNT DOUBLE) Anatomical Region Laterality Modality Body N/A Nuclear Medicine 08/18/2018 9:29 AM STUNT DOUBLE Narrative 08/18/2018 12:53 PM STUNT DOUBLE [facility] [address], [place] [address] [address] [facility] [address], [place] [address] P:[phone] P:[phone] MPI Imaging Report Patient Name: LINDA GARZA : [id number] Study Date: 08/18/2018 9:29:12 AM Gender: F Tech: PEPPER JefefryMT Location: [facility] Ref.Provider: RAVINDER MCLEAN Height(Cm): 165.1 BSA: Weight(Kg): 72.1 BMI: 26.45Order Provider: RAVINDER MCLEAN Physician: Referring Physician: Dr. Lund. HCG Physician: Sonia Mclean M.D. Interpreting Physician: Chandan Neville M.D. Stress Supervision: Chandan Neville M.D. Procedures: Myocardial perfusion imaging with Tc99M Sestamibi SPECT at rest and stress post regadenoson (Lexiscan) infusion. Indications: Coronary Artery Disease, Hypertension, Family Hx CAD, High Cholesterol, and PVC's, Diaphoresis. Findings: Procedural Findings: One day rest/stress was used. Tc99m Sestamibi injected IV at rest was 9.6 millicuries. 31.3 millicuries of Tc99M Sestamibi injected IV during Lexiscan stress. Lexiscan 0.4mg administered IV over 10 seconds. Pharmacologic stress related symptoms and/or side effects during infusion include nausea and headache. Symptoms were resolved with completion of Lexiscan protocol. Baseline heart rate was 62 BPM. Maximum Heart Rate Achieved was: 89 BPM. Baseline blood pressure was 140/80 mmHg. Post Stress Blood Pressure was 146/86 mmHg. Termination: Protocol complete. Resting ECG: Normal sinus rhythm. Cannot r/o IMI - age uncertain. Post ECG: No diagnostic ST changes. Arrhythmia: Rare PVC. Perfusion Findings: Normal perfusion imaging. No definite fixed or reversible defects. Technical quality of study is excellent. Prone imaging was not performed. Left ventricle cavity size at rest is normal. Left ventricle cavity size with stress is unchanged. A TID of 0.89 was automatically calculated. LV Function: Global left ventricular function is normal. Left ventricular ejection fraction is 69 %. Conclusions: Global left ventricular function is normal. Left ventricular ejection fraction is 69 %. Myocardial perfusion imaging is normal. Negative EKG portion of stress test. Electronically Signed By: Tony Neville MD 2018-08-18 12:53:12 STUNT DOUBLE Electronically Signed By: Tony Neville MD 2018-08-18 12:53:12 STUNT DOUBLE Procedure Note Tony Neville MD - 08/18/2018 [facility] [address] [place] [address] [address] [address] [address] [facility] [address], [place] [address] P:[phone] P:[phone] MPI Imaging Report Patient Name: LINDA GARZAPatient ID: [id number] : [id number] Date: 08/18/2018 9:29:12 AM Gender: FAccession #: [id number] Tech[facility] Aleah Champion [facility] Ref.Provider: Nayla MCLEAN(Cm): 165.1 BSA: Weight(Kg): 72.1 BMI: 26.45Order Provider: RAVINDER MCLEAN Physician: Referring Physician: Dr. Lund. HCG Physician: Sonia Mclean M.D. Interpreting Physician: Chandan Neville M.D. Stress Supervision: Chandan Neville M.D. Procedures: Myocardial perfusion imaging with Tc99M Sestamibi SPECT at rest and stresspost regadenoson (Lexiscan) infusion. Indications: Coronary Artery Disease, Hypertension, Family Hx CAD, High Cholesterol,and PVC's, Diaphoresis. Findings: Procedural Findings: One day rest/stress was used. Tc99m Sestamibi injected IV at rest was 9.6millicuries. 31.3 millicuries of Tc99M Sestamibi injected IV during Lexiscan stress.Lexiscan 0.4mg administered IV over 10 seconds. Pharmacologic stress related symptomsand/or side effects during infusion include nausea and headache. Symptoms wereresolved with completion of Lexiscan protocol. Baseline heart rate was 62 BPM. MaximumHeart Rate Achieved was: 89 BPM. Baseline blood pressure was 140/80 mmHg. Post StressBlood Pressure was 146/86 mmHg. Termination: Protocol complete. Resting ECG: Normal sinus rhythm. Cannot r/o IMI - age uncertain. Post ECG: No diagnostic ST changes. Arrhythmia: Rare PVC. Perfusion Findings: Normal perfusion imaging. No definite fixed or reversible defects.Technical quality of study is excellent. Prone imaging was not performed. Left ventricle cavitysize at rest is normal. Left ventricle cavity size with stress is unchanged. A TID of0.89 was automatically calculated. LV Function: Global left ventricular function is normal. Left ventricular ejectionfraction is 69 %. Conclusions: Global left ventricular function is normal. Left ventricular ejectionfraction is 69 %. Myocardial perfusion imaging is normal. Negative EKG portion of stress test. Electronically Signed By: Tony Neville MD 2018-08-18 12:53:12 STUNT DOUBLE Electronically Signed By: Tony Neville MD 2018-08-18 12:53:12 STUNT DOUBLE Ravinder Mclean MD [facility] PROCEDURES Final Result documented in this encounter Visit Diagnoses Diagnosis Coronary artery disease involving [place] coronary artery of [place] heart without angina pectoris Labile hypertension Dyslipidemia Other and unspecified hyperlipidemia Diaphoresis Generalized hyperhidrosis documented in this encounter Administered Medications Inactive Administered Medications - up to 3 most recent administrations Medication Order MAR Action Action Date Dose Rate Site regadenoson (LEXISCAN) 0.4 mg/5 mL injection 0.4 mg 0.4 mg, intravenous, Once, On Sat08/18/18 at 1100, For 1 dose, Administer IV push over 10 seconds., Indications: Myocardial Perfusion Imaging AdjunctIndications:Myocard ial Perfusion Imaging Adjunct Given 08/18/2018 10:24 AM STUNT DOUBLE 0.4 mg tc-99m sestamibi unit dose injection 31.3 millicurie 31.3 millicurie, intravenous, Once in imaging, radiopharmaceutical, Starting on Sat08/18/18 at 1023, For 1 dose, Indications: Diagnostic RadiographyIndications:Adrianna gnostic Radiography Given 08/18/2018 10:23 AM STUNT DOUBLE 31.3 millicuries tc-99m sestamibi unit dose injection 9.6 millicurie 9.6 millicurie, intravenous, Once in imaging, radiopharmaceutical, Starting on Sat08/18/18 at 0848, For 1 dose, Indications: Diagnostic RadiographyIndications:Adrianna gnostic Radiography Given 08/18/2018 8:48 AM STUNT DOUBLE 9.6 millicuries documented in this encounter Care Teams Industrial Gas Production Operator Relationship Specialty Start Date End Date Sixto Lund MD PCP - General 09/21/16 05/01/22 documented as of this encounter
--- OUTSIDE RECORDS SUMMARY | 2024-06-08 20:55 | XMS_ITS | Encounter Summary ---
Author Organization [facility] Address [address] [place] [address] [place] [address] Care Team Providers Care Nuclear Fuel Processing Technician Name Role Phone Sixto Lund MD Primary Care Provider [phone] Encounter Details Date Type Department Care Team (Late st Contact Info) Description 11/19/2017 Telephone [facility] [address] [facility] [address], [place] [address] [place] [address] [place] [address] [address] [place] [address] Social History Tobacco Use Types Packs/Day Years Used Date Smoking Tobacco: Never Smokeless Tobacco: Never Alcohol Use Standard Drinks/Week Comments Yes 0 (1 standard drink = 0.6 oz pur e alcohol) Comments Unknown Sex and Gender Information Value Date Recorded Sex Assigned at Not on file Legal Sex 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 documented in this encounter Plan of Treatment Not on file documented as of this encounter Visit Diagnoses Not on filedocumented in this encounter Care Teams Nuclear Fuel Processing Technician Relationship Specialty Start Date End Date Sixto Lund MD PCP - General 09/21/16 05/01/22 documented as of this encounter
--- OUTSIDE RECORDS SUMMARY | 2024-06-08 20:55 | XMS_ITS | Encounter Summary ---
Author Organization [facility] Address [address] [facility] [address] [place] [address] Care Team Providers Care Insurance Job Titles Name Role Phone Sixto Lund MD Primary Care Provider [phone] Encounter Details Date Type Department Care Team (Late st Contact Info) Description 08/19/2018 Telephone [facility] [address] [address] [address] [place] [address] Ravinder Mclean MD [address] [place] [address] [address] [place] [address] Social History Tobacco Use Types Packs/Day Years Used Date Smoking Tobacco: Never Smokeless Tobacco: Never Alcohol Use Standard Drinks/Week Comments Yes 0 (1 standard drink = 0.6 oz pur e alcohol) Comments Unknown Sex and Gender Information Value Date Recorded Sex Assigned at Not on file Legal Sex 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 Mclean regarding lab results, LAbs look good keep on same meds. Spoke with patient and discussed above. Patient requesting copy of lab results to be mailed to her.Mailed as requested. ANIC FIELD SERVICE documented in this encounter Plan of Treatment Not on file documented as of this encounter Visit Diagnoses Not on filedocumented in this encounter Care Teams Insurance Job Titles Relationship Specialty Start Date End Date Sixto Lund MD PCP - General 09/21/16 05/01/22 documented as of this encounter
--- OUTSIDE RECORDS SUMMARY | 2024-06-08 20:55 | XMS_ITS | Encounter Summary ---
Author Organization [facility] Address [address] [place] [address] [address] [place] [address] Care Team Providers Care Media Production Support Manager Name Role Phone Sixto Lund MD Primary Care Provider [phone] Reason for Visit * Reason Comments Follow-up 2 mo follow up on pa lps, PVC's, bradycardia Encounter Details Date Type Department Care Team (Late st Contact Info) Description 05/20/2017 9:00 AM EMPLOYEE RELATIONS SPECIALIST Office Visit [facility] [address] [place] [address] Ravinder Mclean MD [address] [facility] [address] [place] [address] Coronary artery disease involving tuscarora coronary artery of tuscarora heart without angina pectoris (Primary Dx); Labile hypertension; Anxiety; Statin intolerance; Dyslipidemia; History of fall; PVC (premature ventricular contraction); Palpitations Social History Tobacco Use Types Packs/Day Years Used Date Smoking Tobacco: Never Smokeless Tobacco: Never Alcohol Use Standard Drinks/Week Comments Yes 0 (1 standard drink = 0.6 oz pur e alcohol) Comments Unknown Sex and Gender Information Value Date Recorded Sex Assigned at Not on file Legal Sex 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 EMPLOYEE RELATIONS SPECIALIST Gender Identity Not on file Sexual Orientation Not on file documented as of this encounter Last Filed Vital Signs Vital Sign Reading Time Taken Comments Blood Pressure 128/66 05/20/2017 9:01 AM EMPLOYEE RELATIONS SPECIALIST Pulse 90 05/20/2017 9:01 AM EMPLOYEE RELATIONS SPECIALIST Temperature - - Respiratory Rate - - Oxygen Saturation 96% 05/20/2017 9:01 AM EMPLOYEE RELATIONS SPECIALIST Inhaled Oxygen Concentration - - Weight 78 kg (172 lb) 05/20/2017 9:01 AM EMPLOYEE RELATIONS SPECIALIST Height 165.1 cm (5' 5 ) 05/20/2017 9:01 AM EMPLOYEE RELATIONS SPECIALIST Body Mass Index 28.62 05/20/2017 9:01 AM EMPLOYEE RELATIONS SPECIALIST documented in this encounter Ordered Prescriptions Prescription Sig Dispense Quantity Refills Last Filled Start Date End Date atorvastatin (LIPITOR) 10 mg tablet Take 1 tablet (10 mg total) by mouth daily. 30 tablet 11 05/20/2017 8 benazepril (LOTENSIN) 20 mg tablet Take 0.5 tablets (10 mg total) by mouth daily. 30 tablet 05/20/2017 8 documented in this encounter Progress Notes * Ravinder Mclean MD - 05/20/2017 9:00 AM CST [facility] DATE OF VISIT: 05/20/2017 CHIEF COMPLAINT Chief Complaint Patient presents with ??? Follow-up 2 mo follow up on palps, PVC's, bradycardia HPI Linda Garza is a 76 y.o. female with a PMHx of CAD LAD stent, h/o 80% RCA stenosis, HTN, dyslipidemia, chronic recurrent atypical CP, h/o LUE DVT on coumadin, chronic anxiety previously followed in [place]. 07/15/13 she returns today stating she has [...] stress she thinks. HAsn't spoken with Dr. Lund about this but has meds to help. [...] noted in the 40's so sent to [place] ER by Dr. Lund EKG done HR 55bpm. Told to reduce [...] balance twisting her knee. +edema. Saw Dr. Lund. Tearful in the office about being told she was older, weaker than before after her discussion with Dr. Lund. She then described her Polio issues and [...] better but had some palps last night. MEDICAL HISTORY Past Medical History: Diagnosis Date [...] tablet aspirin 325 mg tablet benazepril (LOTENSIN) 20 mg tablet escitalopram (LEXAPRO) 5 mg tablet HYDROcodone-acetaminophen (VICODIN) 5-300 mg per tablet spironolactone-hydroCHLOROthiazide (ALDACTAZIDE) 25-25 mg per tablet atenolol (TENORMIN) 50 mg tablet benazepril (LOTENSIN) 20 mg tablet pravastatin (PRAVACHOL) 80 mg tablet atorvastatin (LIPITOR) 10 mg tablet ALLERGIES Allergies Allergen Reactions ??? Znedauj-Hjm-Wwz Reductase Inhibitors Muscle pain ??? Prednisone ??? Propoxyphene-Acetaminophen REVIEW OF SYSTEMS Review of Systems Constitution: Positive for malaise/fatigue. Negative for decreased appetite, diaphoresis, fever, weakness and night sweats. HENT: Negative for hearing loss and nosebleeds. Eyes: Negative for blurred vision and pain. Cardiovascular: Positive for dyspnea on exertion, irregular heartbeat and palpitations. Negative for chest pain, claudication, leg swelling, near-syncope, orthopnea and syncope. Respiratory: Negative for cough, hemoptysis, shortness of breath, snoring and wheezing. Endocrine: Negative for cold intolerance and heat intolerance. Hematologic/Lymphatic: Negative for bleeding problem. Does not bruise/bleed easily. Skin: Negative for color change, itching, rash and suspicious lesions. Musculoskeletal: Positive for joint pain. Negative for falls, muscle weakness and myalgias. Gastrointestinal: Negative for abdominal pain, heartburn, hematemesis, melena and nausea. Genitourinary: Negative for dysuria, hematuria and nocturia. Neurological: Positive for dizziness. Negative for excessive daytime sleepiness, focal weakness, headaches, light-headedness and loss of balance. Psychiatric/Behavioral: Negative for altered mental status, depression and memory loss. The patientis not nervous/anxious. Allergic/Immunologic: Negative for environmental allergies. PHYSICAL EXAM Vitals: 05/20/17 0901 BP: 128/66 Pulse: 90 SpO2: 96% Weight: 78 kg (172 lb) Height: 165.1 cm (5' 5 ) Body mass index is 28.62 kg/m??. Physical Exam Constitutional: She is oriented [...] edema. She exhibits no tenderness or deformity. Walking with cane Lymphadenopathy: She has no cervical adenopathy. Neurological: [...] Judgment normal. LABS AND OTHER DIAGNOSTIC TESTS Orders Only on 05/20/2017 Component Date Value Ref Range Status ??? SCRIBED Cholesterol, Total 05/14/2017 276* 0 - 200 Final ??? SCRIBED HDL 05/14/2017 41 35 - 96 Final ??? SCRIBED LDL 05/14/2017 186* 0 - 130 Final ??? SCRIBED Triglycerides 05/14/2017 243* 0 - 150 Final Results for orders placed or performed in visit on 05/20/17 Lipid panel Result Value Ref Range SCRIBED Cholesterol, Total 276 (A) 0 - 200 SCRIBED HDL 41 35 - 96 SCRIBED LDL 186 (A) 0 - 130 SCRIBED Triglycerides 243 (A) 0 - 150 Reviewed EKG, Echocardiogram, stress test, and bloodwork/lipids. ASSESSMENT Diagnoses and all orders for this visit: Coronary artery disease involving tuscarora coronary artery of tuscarora heart without angina pectoris (Primary) Labile hypertension Anxiety Statin intolerance Dyslipidemia - Lipid panel; Future History of fall PVC (premature ventricular contraction) Palpitations Other orders - benazepril (LOTENSIN) 20 mg tablet; Take 0.5 tablets (10 mg total) by mouth daily. - atorvastatin (LIPITOR) 10 mg tablet; Take 1 tablet (10 mg total) by mouth daily. PLAN/RECOMMENDATIONS 1. Fairly stable without clear anginal sxs. Aggressive CAD risk modification counseling performed. Continue current medical therapy. Notify office immediately with anginal symptoms. 2. Lipids markedly elevated. Pt willing to restart Atorvastatin 10mg qhs. Repeat lipids in 2 months. 3. Pt still dealing with anxiety issues. Defer to Dr. Lund. 4. BP reasonably controlled and improved on repeat check. Continue Benazepril 10mg daily. Monitor BP on routine basis. Call with readings. Continue consistent cardiovascular exercise, weight loss, medication compliance, and low-sodium diet. 6. Continue to hold Atenolol given symptomatic bradycardia and hypotension. Monitor palps. 7. Lifestyle modification counseling performed. Weight loss, exercise, reduction in caloric intake. 8. Monitor BP and HR. Over 50% of this visit counseling CAD, HTN, lipids, medications, lifestyle modification. 25 minutesspent with patient in the office. Follow up in the office in 3 months. Thank you for allowing me the privilege of participating in the care this very pleasant patient. Please do not hesitate to contact me with any additional questions or concerns. Sonia Mclean MD, FACC OYEE RELATIONS SPECIALIST documented in this encounter Plan of Treatment Not on file documented as of this encounter Visit Diagnoses Diagnosis Coronary artery disease involving tuscarora coronary artery of tuscarora heart without angina pectoris- Primary Labile hypertension Anxiety Anxiety state, unspecified Statin intolerance Dyslipidemia Other and unspecified hyperlipidemia History of fall Personal history of fall PVC (premature ventricular contraction) Other premature beats Palpitations documented in this encounter Discontinued Medications Medication Sig Discontinue Reason Start Date End Da te atenolol (TENORMIN) 50 mg tablet Take 0.5 tablets (25 mg total) by mouth daily. ONLY TAKE NEEDED ONCE IN A DAY IF HEART RATE IS 100 OR HIGHER. 03/19/2017 05/20/2017 benazepril (LOTENSIN) 20 mg tablet take 1 tablet by oral route every day Reorder 08/24/2014 05/20/2017 pravastatin (PRAVACHOL) 80 mg tablet Take 1 tablet (80 mg total) by mouth daily. 02/06/2017 05/20/2017 documented as of this encounter Care Teams Media Production Support Manager Relationship Specialty Start Date End Date Sixto Lund MD PCP - General 09/21/16 05/01/22 documented as of this encounter
--- OUTSIDE RECORDS SUMMARY | 2024-06-08 20:55 | XMS_ITS | Encounter Summary ---
Author Organization [facility] Address [address] [place] [address] Care Team Providers Care Road Contractor Name Role Phone Sixto Lund MD Primary Care Provider Encounter Details Date Type Department Care Team (Late st Contact Info) Description 05/20/2017 Orders Only [facility] [address] [facility] [facility] [address] [place] [address] Provider, MD [facility] [place] [id number] Social History Tobacco Use Types Packs/Day Years Used Date Smoking Tobacco: Never Smokeless Tobacco: Never Alcohol Use Standard Drinks/Week Comments Yes 0 (1 standard drink = 0.6 oz pur e alcohol) PHQ-2 Answer Date Recorded PHQ-2 Score 1 05/28/2019 Comments Unknown Sex and Gender Information Value Date Recorded Sex Assigned at Not on file Legal Sex 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 NETWORK CABLER Gender Identity Not on file Sexual Orientation Not on file documented as of this encounter Plan of Treatment Not on file documented as of this encounter Procedures Procedure Name Priority Date/Time Associated Diagnosis Comments LIPID PANEL Routine 05/14/2017 10:00 AM NETWORK CABLER documented in this encounter Results * (ABNORMAL) Lipid panel (05/14/2017 10:00 AM NETWORK CABLER) SCRIBED Cholesterol, Total 276(A) 0 - 200 EXTERNAL LAB SCRIBED HDL 41 35 - 96 EXTERNAL LAB SCRIBED LDL 186(A) 0 - 130 EXTERNAL LAB SCRIBED Triglycerides 243(A) 0 - 150 EXTERNAL LAB Blood specimen (specimen) us Historical Provider LAB BLOOD ORDERABLES Edit ed Result - Final EXTERNAL LAB documented in this encounter Visit Diagnoses Not on filedocumented in this encounter Care Teams Road Contractor Relationship Specialty Start Date End Date Sixto Lund MD PCP - General 09/21/16 05/01/22 documented as of this encounter
--- OUTSIDE RECORDS SUMMARY | 2024-06-08 20:55 | XMS_ITS | Encounter Summary ---
Author Organization [facility] Address [address] [place] [address] Care Team Providers Care Coloring Room Worker Name Role Phone Sixto Perry MD Primary Care Provider [phone] Encounter Details Date Type Department Care Team (Late st Contact Info) Description 06/11/2017 Telephone [facility] [address] [facility] [address] [place] [address] Ravinder Mclean MD [address] [facility] [address] [place] [address] Social History Tobacco Use Types Packs/Day Years Used Date Smoking Tobacco: Never Smokeless Tobacco: Never Alcohol Use Standard Drinks/Week Comments Yes 0 (1 standard drink = 0.6 oz pur e alcohol) Comments Unknown Sex and Gender Information Value Date Recorded Sex Assigned at Not on file Legal Sex 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 PROJECT ASSISTANT Gender Identity Not on file Sexual Orientation Not on file documented as of this encounter Miscellaneous Notes * Telephone Encounter - Oliva Ramsey RN - 06/11/2017 3:47 PM CST Long conversation with pt. She saw Dr Mclean in late April, had swelling in her leg.. Shortly after she saw Dr perry who referred her to an orthopedist. He did a scan and patient said she had a clot that occluded her leg from her thigh to her ankle. Pt was on Lovenox, now on warfarin. She saidan SPECIAL MACHINE STITCHER mentioned a fib to her that afib can cause clots, but patient said the SPECIAL MACHINE STITCHER did not do an EKG .Pt just had another scan that showed minor resolution of the clot , but still Significant clot burden. Someone, told her that she should see a vascular surgeon to check her circulation. She was told to call Dr Mclean for a referral to a vascular surgeon. Pt said she does not want to lose her leg... She is still somewhat active and does not want to go into a nursing hoe or be resigned to using a wheel chair. Requested vascular studies from PCP... Will await those results and inform Dr Mclean. ECT ASSISTANT * Telephone Encounter - Oliva Ramsey RN - 06/11/2017 1:56 PM CST [facility] ECT ASSISTANT documented in this encounter Plan of Treatment Not on file documented as of this encounter Visit Diagnoses Not on filedocumented in this encounter Care Teams Coloring Room Worker Relationship Specialty Start Date End Date Sixto Perry MD PCP - General 09/21/16 05/01/22 documented as of this encounter
--- OUTSIDE RECORDS SUMMARY | 2024-06-08 20:55 | XMS_ITS | Encounter Summary ---
Author Organization [facility] Address [address] [place] [address] Care Team Providers Care Licensed Physical Therapist Assistant Name Role Phone Sixto Lund MD Primary Care Provider [phone] Encounter Details Date Type Department Care Team (Late st Contact Info) Description 11/26/2016 Orders Only [facility] [address] [address] [place] [address] Ravinder Mclean MD [address] [facility] [address] [place] [address] Social History Tobacco Use Types Packs/Day Years Used Date Smoking Tobacco: Never Alcohol Use Standard Drinks/Week Comments Yes 0 (1 standard drink = 0.6 oz pur e alcohol) PHQ-2 Answer Date Recorded PHQ-2 Score 1 05/28/2019 Comments Unknown Sex and Gender Information Value Date Recorded Sex Assigned at Not on file Legal Sex 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 CAMPAIGN DEVELOPER Gender Identity Not on file Sexual Orientation Not on file documented as of this encounter Plan of Treatment Not on file documented as of this encounter Procedures Procedure Name Priority Date/Time Associated Diagnosis Comments LIPID PANEL Routine 11/21/2016 documented in this encounter Results * Lipid panel (11/21/2016) Blood specimen (specimen) Ravinder Mclean MD LAB BLOOD ORDERABLES Fin al Result documented in this encounter Visit Diagnoses Not on filedocumented in this encounter Care Teams Licensed Physical Therapist Assistant Relationship Specialty Start Date End Date Sixto Lund MD PCP - General 09/21/16 05/01/22 documented as of this encounter
--- OUTSIDE RECORDS SUMMARY | 2024-06-08 20:55 | XMS_ITS | Encounter Summary ---
Author Organization [facility] Address [address] [place] [address] [address] [place] [address] Care Team Providers Care Makeup Instructor Name Role Phone Sixto Terrazas MD Primary Care Provider [phone] Reason for Visit * Reason Comments Follow-up 2 mo follow up on CA D, HTN, PVC, DVT, palps Encounter Details Date Type Department Care Team (Late st Contact Info) Description 11/04/2017 10:45 AM CDT Office Visit [facility] [address] [facility] 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 (CMS/HCC); Orthostatic hypotension; Statin intolerance; Labile hypertension; Palpitations Social History Tobacco Use Types Packs/Day Years Used Date Smoking Tobacco: Never Smokeless Tobacco: Never Alcohol Use Standard Drinks/Week Comments Yes 0 (1 standard drink = 0.6 oz pur e alcohol) Comments Unknown Sex and Gender Information Value Date Recorded Sex Assigned at Not on file Legal Sex 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 RAILROAD EMERGENCY SERVICES MANAGER Gender Identity Not on file Sexual Orientation Not on file documented as of this encounter Last Filed Vital Signs Vital Sign Reading Time Taken Comments Blood Pressure 138/72 11/04/2017 10:39 AM CDT Pulse 85 11/04/2017 10:39 AM CDT Temperature - - Respiratory Rate - - Oxygen Saturation 97% 11/04/2017 10:39 AM CDT Inhaled Oxygen Concentration - - Weight 74.8 kg (165 lb) 11/04/2017 10:39 AM CDT Height 165.1 cm (5' 5 ) 11/04/2017 10:39 AM CDT Body Mass Index 27.46 11/04/2017 10:39 AM CDT documented in this encounter Ordered Prescriptions Prescription Sig Dispense Quantity Refills Last Filled Start Date End Date benazepril (LOTENSIN) 10 mg tablet Take 1 tablet (10 mg total) by mouth daily. 90 tablet 3 11/04/2017 11/19/2017 documented in this encounter Progress Notes * Ravinder Mclean MD - 11/04/2017 10:45 AM CDT [facility] DATE OF VISIT: 11/04/2017 CHIEF COMPLAINT Chief Complaint Patient presents with ??? Follow-up 2 mo follow up on CAD, HTN, PVC, DVT, palps HPI Linda Garza is a 76 y.o. female with a PMHx of CAD LAD stent, h/o 80% RCA stenosis, HTN, dyslipidemia, chronic recurrent atypical CP, h/o LUE DVT on coumadin, chronic anxiety previously followed in [place]. 07/15/13 she returns today stating she has [...] noted in the 40's so sent to [place] ER by Dr. Terrazas EKG done HR [...] kept working. Uses cane for walking. She hasbeen taking 10mg Benazepril and her BP has been good. BP drops too low taking Atenolol so doesn't take it and has been off of it for a couple of months for low BP and HR. Not taking Pravastatin as she did not tolerate. States she tolerated Atorvastatin in [...] nearly completely resolved seeing Vascular surgery in [place] and is feeling better overall. She is [...] that is why she followed me from [place] and still chooses to see me and [...] pain. Going to see Vascular surgeon in [place] very soon and having vascular studies at that time. Notes pain in R leg from her hip to lower leg including knee as she fell on that leg. USing cane to get around. HAving some palpitations but admits she is feeling overwhelmed as she did not want to fall lately. MEDICAL HISTORY Past Medical History: Diagnosis Date [...] mg tablet hydroCHLOROthiazide (HYDRODIURIL) 25 mg tablet HYDROcodone-acetaminophen (VICODIN) 5-300 mg per tablet warfarin (COUMADIN) 3 mg tablet benazepril (LOTENSIN) 20 mg tablet atorvastatin (LIPITOR) 10 mg tablet ALLERGIES Allergies Allergen Reactions ??? Uaxhrik-Zdh-Rks Reductase Inhibitors Muscle pain ??? Prednisone ??? Propoxyphene-Acetaminophen REVIEW OF SYSTEMS Review of Systems Constitution: Positive for malaise/fatigue and weight gain. Negative for decreased appetite, diaphoresis, fever, weakness and night sweats. HENT: Negative for hearing loss and nosebleeds. Eyes: Negative for blurred vision and pain. Cardiovascular: Positive for leg swelling and palpitations. [...] Negative for environmental allergies. PHYSICAL EXAM Vitals: 11/04/17 1039 BP: 138/72 Pulse: 85 SpO2: 97% Weight: 74.8 kg (165 lb) Height: 165.1 cm (5' 5 ) Body mass index is 27.46 kg/m??. Physical Exam Constitutional: She is oriented [...] AND OTHER DIAGNOSTIC TESTS Orders Only on 08/08/2017 Component Date Value [...] for this visit: Coronary artery disease involving hoh coronary artery of hoh heart without angina pectoris (Primary) Dyslipidemia History of fall 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 (CMS/HCC) Orthostatic hypotension Statin intolerance Labile hypertension Palpitations Other orders - benazepril (LOTENSIN) 10 mg tablet; Take 1 tablet (10 mg total) by mouth daily. PLAN/RECOMMENDATIONS 1. No anginal sxs. Aggressive CAD risk modification counseling performed. Continue current medical therapy. Notify office immediately with anginal symptoms. 2. Lipids personally reviewed LDL 291 08/08/17 which is markedly elevated. Pt not willing to try other statins due to severe myalgias. PCSK9 inhibitor therapy most reasonable option, but wants to discuss at a later time 3. Extreme caution with ambulation to avoid falls and injuries. Due to antibiotic use and h/o elevated INR with recent fall advised to recheck INR now. 4. BP reasonably controlled and improved on repeat check. Continue Benazepril 10mg daily, states 20mg drops BP too much. Given confusion with taking Spironolactone-HCTZ QOD sort of as she states will attempt to simply regimen for her as she desires. Will STOP Spironolactone-HCTZ and START HCTZ 25mg daily. Advised will need to monitor electrolytes closely. Will obtain BMP in 2-4 weeks. Monitor BP on routine basis. Call with readings or any other concerns immediately including uncontrolled BP or worsening edema. Continue consistent cardiovascular exercise, weight loss, medication compliance, and low-sodium diet. 6. Remains off BB given symptomatic bradycardia and hypotension. Monitor palps, still minimal thus far. 7. Cont to follow up with vascular as scheduled and communicate with me about her progress. Offered imaging and xrays of R knee but she declined for now and will se Dr. Terrazas's office later today and Vascular surgeon on Saturday. Over 50% of this visit counseling CAD, HTN, lipids, medications, lifestyle modification. 50 minutesspent with patient in the office. Follow up in the office in 2 months or sooner as needed. Thank you for allowing me the privilege of participating in the care this very pleasant patient. Please do not hesitate to contact me with any additional questions or concerns. Sonia Mclean MD, [facility] documented in this encounter Plan of Treatment Not on file documented as of this encounter Visit Diagnoses Diagnosis Coronary artery disease involving hoh coronary artery of hoh heart without angina pectoris- Primary Dyslipidemia Other and unspecified hyperlipidemia History of fall Personal history of fall 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 (HCC) Orthostatic hypotension Statin intolerance Labile hypertension Palpitations documented in this encounter Discontinued Medications Medication Sig Discontinue Reason Start Date End Da te atorvastatin (LIPITOR) 10 mg tablet Take 1 tablet (10 mg total) by mouth daily. Discontinued by another clinician 05/20/2017 11/04/2017 benazepril (LOTENSIN) 20 mg tablet Take 0.5 tablets (10 mg total) by mouth daily. Reorder 05/20/2017 11/04/2017 documented as of this encounter Care Teams Makeup Instructor Relationship Specialty Start Date End Date Sixto Terrazas MD PCP - General 09/21/16 05/01/22 documented as of this encounter
--- OUTSIDE RECORDS SUMMARY | 2024-06-08 20:55 | XMS_ITS | Encounter Summary ---
Author Organization [facility] Address [address] [place] [address] Care Team Providers Care Superintendent Landfill Operations Name Role Phone Sixto Lund MD Primary Care Provider [phone] Encounter Details Date Type Department Care Team (Late st Contact Info) Description 04/23/2018 Orders Only [facility] [address] [facility] [address] [place] [address] Provider, MD Armani [facility] [place] [id number] Social History Tobacco Use Types Packs/Day Years Used Date Smoking Tobacco: Never Smokeless Tobacco: Never Alcohol Use Standard Drinks/Week Comments Yes 0 (1 standard drink = 0.6 oz pur e alcohol) Comments Unknown Sex and Gender Information Value Date Recorded Sex Assigned at Not on file Legal Sex 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 STAKING ENGINEER Gender Identity Not on file Sexual Orientation Not on file documented as of this encounter Plan of Treatment Not on file documented as of this encounter Procedures Procedure Name Priority Date/Time Associated Diagnosis Comments LIPID PANEL Routine 04/22/2018 9:29 AM CDT documented in this encounter Results * (ABNORMAL) Lipid panel (04/22/2018 9:29 AM CDT) SCRIBED Cholesterol, Total 226(A) 0 - 200 EXTERNAL LAB SCRIBED HDL 47 35 - 100 EXTERNAL LAB SCRIBED LDL 149(A) 0 - 130 EXTERNAL LAB SCRIBED Triglycerides 150 0 - 150 EXTERNAL LAB Blood specimen (specimen) us Historical Provider LAB BLOOD ORDERABLES Edit ed Result - Final EXTERNAL LAB documented in this encounter Visit Diagnoses Not on filedocumented in this encounter Care Teams Superintendent Landfill Operations Relationship Specialty Start Date End Date Sixto Lund MD PCP - General 09/21/16 05/01/22 documented as of this encounter
--- OUTSIDE RECORDS SUMMARY | 2024-06-08 20:55 | XMS_ITS | Encounter Summary ---
Author Organization [facility] Address [address] [place] [address] [place] [address] Care Team Providers Care Hydraulic Controls Technician Name Role Phone Sixto Ludn MD Primary Care Provider [phone] Encounter Details Date Type Department Care Team (Late st Contact Info) Description 11/19/2017 Telephone [facility] [address] [facility] [address], [place] [id number] [place] [address] [place] [address] [address] [place] [address] Social History Tobacco Use Types Packs/Day Years Used Date Smoking Tobacco: Never Smokeless Tobacco: Never Alcohol Use Standard Drinks/Week Comments Yes 0 (1 standard drink = 0.6 oz pur e alcohol) Comments Unknown Sex and Gender Information Value Date Recorded Sex Assigned at Not on file 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 * Telephone Encounter - Jillian Clarke - 11/19/2017 9:13 AM CDT Pt called and wants 90 day rx sent to [facility] Hydrochlorothiazide 25mg Tab and benazepril 10mg tab. documented in this encounter Plan of Treatment Not on file documented as of this encounter Visit Diagnoses Not on filedocumented in this encounter Care Teams Hydraulic Controls Technician Relationship Specialty Start Date End Date Sixto Lund MD PCP - General 09/21/16 05/01/22 documented as of this encounter
--- OUTSIDE RECORDS SUMMARY | 2024-06-08 20:55 | XMS_ITS | Encounter Summary ---
Author Organization [facility] Address [address] [facility] [address] [place] [address] Care Team Providers Care Dental Aide Name Role Phone Sixto Lund MD Primary Care Provider [phone] Encounter Details Date Type Department Care Team (Late st Contact Info) Description 05/30/2018 Telephone [facility] [address] [facility] [address] [facility] [address] [place] [address] Codie Mathew NP [address] [facility] 162 [facility] [address] [place] [address] Social History Tobacco Use Types Packs/Day Years Used Date Smoking Tobacco: Never Smokeless Tobacco: Never Alcohol Use Standard Drinks/Week Comments Yes 0 (1 standard drink = 0.6 oz pur e alcohol) Comments Unknown Sex and Gender Information Value Date Recorded Sex Assigned at Not on file Legal Sex 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 RN ACUTE DIALYSIS Gender Identity Not on file Sexual Orientation Not on file documented as of this encounter Miscellaneous Notes * Telephone Encounter - Oliva Ramsey RN - 05/30/2018 3:24 PM RN ACUTE DIALYSIS Per Codie, Please call her to let her know labs from last week were fine (BMP was checked b/c of change to diuretic therapy). ??Lipids have improved a great deal! ??They are now TC 191, TG 139, LDL 117, HDL 46. ??04/22/18 was TC 226, TG 150, LDL 149, HDL 47, and LDL prior to starting statin was 291!! Pt notified. ACUTE DIALYSIS documented in this encounter Plan of Treatment Not on file documented as of this encounter Visit Diagnoses Not on filedocumented in this encounter Care Teams Dental Aide Relationship Specialty Start Date End Date Sixto Lund MD PCP - General 09/21/16 05/01/22 documented as of this encounter
--- OUTSIDE RECORDS SUMMARY | 2024-06-08 20:55 | XMS_ITS | Encounter Summary ---
Author Organization [facility] Address [address] [place] [address] Care Team Providers Care Belt Dresser Name Role Phone Sixto Lund MD Primary Care Provider [phone] Encounter Details Date Type Department Care Team (Late st Contact Info) Description 10/14/2018 Orders Only [facility] [address] [facility] [address] [place] [address] ProviderArmani MD [address] [place], [place] [id number] Social History Tobacco Use Types Packs/Day Years Used Date Smoking Tobacco: Never Smokeless Tobacco: Never Alcohol Use Standard Drinks/Week Comments Yes 0 (1 standard drink = 0.6 oz pur e alcohol) Comments Unknown Sex and Gender Information Value Date Recorded Sex Assigned at Not on file 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 Gender Identity Not on file Sexual Orientation Not on file documented as of this encounter Plan of Treatment Not on file documented as of this encounter Procedures Procedure Name Priority Date/Time Associated Diagnosis Comments CBC WITHOUT DIFFERENTIAL Routine 10/13/2018 BASIC METABOLIC PANEL Routine 10/13/2018 documented in this encounter Results * Basic metabolic panel (10/13/2018) Blood specimen (specimen) Historical Provider LAB BLOOD ORDERABLES Deyanira l Result * CBC without differential (10/13/2018) Blood specimen (specimen) Historical Provider LAB BLOOD ORDERABLES Deyanira l Result documented in this encounter Visit Diagnoses Not on filedocumented in this encounter Care Teams Belt Dresser Relationship Specialty Start Date End Date Sixto Lund MD PCP - General 09/21/16 05/01/22 documented as of this encounter
--- OUTSIDE RECORDS SUMMARY | 2024-06-08 20:55 | XMS_ITS | Encounter Summary ---
Author Organization [facility] Address [address] [facility] [address] [place] [address] Care Team Providers Care Exchange Specialist Name Role Phone Sixto Lund MD Primary Care Provider [phone] Encounter Details Date Type Department Care Team (Late st Contact Info) Description 10/15/2018 Telephone [facility] [address] [facility] [address] [place] [phone] Ravinder Mclean MD [address] [facility] [address] [place] [address] Social History Tobacco Use Types Packs/Day Years Used Date Smoking Tobacco: Never Smokeless Tobacco: Never Alcohol Use Standard Drinks/Week Comments Yes 0 (1 standard drink = 0.6 oz pur e alcohol) Comments Unknown Sex and Gender Information Value Date Recorded Sex Assigned at Not on file 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 Patient is not taking a potassium supplement. * Telephone Encounter - Jeanette Keller RN - 10/15/2018 3:[address] Mclean regarding lab results, If she is still taking potassium she may continue as a potassium level is stable on current regimen. ??If she is not taking potassium she does not need to resume supplementation based upon this blood test. Awaiting patients return call to discuss. * Telephone Encounter - Jeanette Keller RN - 10/15/2018 2:34 PM CDT LMTC * Telephone Encounter - Jillian Clarke - 10/15/2018 2:20 PM CDT Pt has questions about results. Wants a cb at [phone] * Telephone Encounter - Jeanette Keller RN - 10/15/2018 11:55 AM CDT LMOM with results of blood work from 10/13/18 * Telephone Encounter - Jillian Clarke - 10/15/2018 11:28 AM CDT Pt wants a callback with results from blood work 10/13. cb [phone] documented in this encounter Plan of Treatment Not on file documented as of this encounter Visit Diagnoses Not on filedocumented in this encounter Care Teams Exchange Specialist Relationship Specialty Start Date End Date Sixto Lund MD PCP - General 09/21/16 05/01/22 documented as of this encounter
--- OUTSIDE RECORDS SUMMARY | 2024-06-08 20:55 | XMS_ITS | Encounter Summary ---
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
--- OUTSIDE RECORDS SUMMARY | 2024-06-08 20:55 | XMS_ITS | Encounter Summary ---
Author Organization [facility] Address [address] [facility] [address] [place] [address] Care Team Providers Care Assignment Agent Name Role Phone Sixto Lund MD Primary Care Provider [phone] Encounter Details Date Type Department Care Team (Late st Contact Info) Description 08/18/2018 Orders Only [facility] [address] [facility] [address] [place] [address] ProviderArmani MD [address] [place] [address] Social History Tobacco Use Types Packs/Day Years Used Date Smoking Tobacco: Never Smokeless Tobacco: Never Alcohol Use Standard Drinks/Week Comments Yes 0 (1 standard drink = 0.6 oz pur e alcohol) Comments Unknown Sex and Gender Information Value Date Recorded Sex Assigned at Not on file 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 Gender Identity Not on file Sexual Orientation Not on file documented as of this encounter Plan of Treatment Not on file documented as of this encounter Procedures Procedure Name Priority Date/Time Associated Diagnosis Comments BASIC METABOLIC PANEL Routine 08/15/2018 documented in this encounter Results * Basic metabolic panel (08/15/2018) Blood specimen (specimen) us Historical Provider LAB BLOOD ORDERABLES Deyanira l Result documented in this encounter Visit Diagnoses Not on filedocumented in this encounter Care Teams Assignment Agent Relationship Specialty Start Date End Date Sixto Lund MD PCP - General 09/21/16 05/01/22 documented as of this encounter
--- OUTSIDE RECORDS SUMMARY | 2024-06-08 20:55 | XMS_ITS | Encounter Summary ---
Author Organization [facility] Address [address] [facility] [address] [place] [address] Care Team Providers Care Teacher Adventure Education Name Role Phone Sixto Lund MD Primary Care Provider [phone] Encounter Details Date Type Department Care Team (Late st Contact Info) Description 02/20/2017 Telephone [facility] [address] [facility] [address] [place] [address] Ravinder Mclean MD [facility] [facility] [address] [place] [address] Social History Tobacco Use Types Packs/Day Years Used Date Smoking Tobacco: Never Smokeless Tobacco: Never Alcohol Use Standard Drinks/Week Comments Yes 0 (1 standard drink = 0.6 oz pur e alcohol) Comments Unknown Sex and Gender Information Value Date Recorded Sex Assigned at Not on file 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 * Telephone Encounter - Ravinder Mclean MD - 02/22/2017 12:55 PM CDT Pravastatin 40mg po qhs. * Telephone Encounter - Heike Pastrana RN - 02/20/2017 3:07 PM CDT Spoke to pt; Made aware that final holter report was not yet available; Pt given cholesterol results from appt last week; Pt did clarify with pharmacy that she was taking pravastatin 80mg - she said yes , she had correct prescription; Pt wanting to know what cholesterol medication she is suppose kelli taking now; Will forward message to AD and call pt back with recommendations. documented in this encounter Plan of Treatment Not on file documented as of this encounter Visit Diagnoses Not on filedocumented in this encounter Care Teams Teacher Adventure Education Relationship Specialty Start Date End Date Sixto Lund MD PCP - General 09/21/16 05/01/22 documented as of this encounter
--- OUTSIDE RECORDS SUMMARY | 2024-06-08 20:55 | XMS_ITS | Encounter Summary ---
Author Organization [facility] Address [address] [facility] [address] [place] [address] Care Team Providers Care Cash Grain Grower Name Role Phone Sixto Lund MD Primary Care Provider [phone] Encounter Details Date Type Department Care Team (Late st Contact Info) Description 09/30/2017 Orders Only [facility] [address] [facility] [address] [place] [address] ProviderArmani MD [address] [place] [address] Social History Tobacco Use Types Packs/Day Years Used Date Smoking Tobacco: Never Smokeless Tobacco: Never Alcohol Use Standard Drinks/Week Comments Yes 0 (1 standard drink = 0.6 oz pur e alcohol) Comments Unknown Sex and Gender Information Value Date Recorded Sex Assigned at Not on file 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 Gender Identity Not on file Sexual Orientation Not on file documented as of this encounter Plan of Treatment Not on file documented as of this encounter Procedures Procedure Name Priority Date/Time Associated Diagnosis Comments BASIC METABOLIC PANEL Routine 09/28/2017 documented in this encounter Results * Basic metabolic panel (09/28/2017) Blood specimen (specimen) us Historical Provider LAB BLOOD ORDERABLES Deyanira l Result documented in this encounter Visit Diagnoses Not on filedocumented in this encounter Care Teams Cash Grain Grower Relationship Specialty Start Date End Date Sixto Lund MD PCP - General 09/21/16 05/01/22 documented as of this encounter
--- OUTSIDE RECORDS SUMMARY | 2024-06-08 20:55 | XMS_ITS | Encounter Summary ---
Author Organization [facility] Address [address] [place] [address] Care Team Providers Care Rv Body Mechanic Name Role Phone Sixto Lund MD Primary Care Provider [phone] Encounter Details Date Type Department Care Team (Late st Contact Info) Description 01/22/2011 12:01 AM CDT - 02/21/2011 11:59 PM CDT Hospital Encounter [facility] Everett Bello, DO [address] [place] [address] Edema Social History Tobacco Use Types Packs/Day Years Used Date Smoking Tobacco: Never Assessed Comments Unknown Sex and Gender Information Value Date Recorded Sex Assigned at Not on file 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
--- OUTSIDE RECORDS SUMMARY | 2024-06-08 20:55 | XMS_ITS | Encounter Summary ---
Author Organization [facility] Address [address] [facility] [address] [place] [address] Care Team Providers Care Intermediate Teacher Name Role Phone Sixto Lund MD Primary Care Provider [phone] Encounter Details Date Type Department Care Team (Late st Contact Info) Description 07/24/2018 Documentation [facility] [address] [facility] [address] [place] [address] Karla Dhaliwal MA Social History Tobacco Use Types Packs/Day Years Used Date Smoking Tobacco: Never Smokeless Tobacco: Never Alcohol Use Standard Drinks/Week Comments Yes 0 (1 standard drink = 0.6 oz pur e alcohol) Comments Unknown Sex and Gender Information Value Date Recorded Sex Assigned at Not on file 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 ESTATE TRANSACTION MANAGER documented in this encounter Plan of Treatment Not on file documented as of this encounter Visit Diagnoses Not on filedocumented in this encounter Care Teams Intermediate Teacher Relationship Specialty Start Date End Date Sixto Lund MD PCP - General 09/21/16 05/01/22 documented as of this encounter
--- OUTSIDE RECORDS SUMMARY | 2024-06-08 20:55 | XMS_ITS | Encounter Summary ---
Author Organization [facility] Address [address] [place] [address] Care Team Providers Care Wine Steward/Stewardess Name Role Phone Sixto Terrazas MD Primary Care Provider [phone] Reason for Referral * Diagnostic Imaging (Routine) - Closed Specialty Diagnoses / Procedures Referred By Contac t Referred To Contact Diagnoses Coronary artery disease involving assiniboine and sioux coronary artery of assiniboine and sioux heart without angina pectoris Labile hypertension Dyslipidemia Diaphoresis Procedures NM MPI SPECT (Rest and/or Stress) Multiple Studies Ravinder Mclean MD Phone: tel: fax: [facility] Referral ID Status Reason Start Date Expiration Date Visits Re quested Visits Authorized [id number] Closed 08/07/2018 02/16/2020 5 5 WORKER Reason for Visit * Reason Comments Follow-up 3 mo follow up on CA D, HTN, DVT, PVC's, palps, dyslipidemia Encounter Details Date Type Department Care Team (Late st Contact Info) Description 08/07/2018 10:15 AM MOLD WORKER Office Visit [facility] [address] [place] [address] Ravinder Mclean MD [facility] [address] [place] [address] Coronary artery disease involving assiniboine and sioux coronary artery of assiniboine and sioux heart without angina pectoris (Primary Dx); Labile hypertension; Dyslipidemia; PVC (premature ventricular contraction); Statin intolerance; Muscle pain; 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 (CMS/HCC); Chronic anticoagulation; Bradycardia; Diaphoresis; Anxiety Social History Tobacco Use Types Packs/Day Years Used Date Smoking Tobacco: Never Smokeless Tobacco: Never Alcohol Use Standard Drinks/Week Comments Yes 0 (1 standard drink = 0.6 oz pur e alcohol) Comments Unknown Sex and Gender Information Value Date Recorded Sex Assigned at Not on file Legal Sex 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 MOLD WORKER Gender Identity Not on file Sexual Orientation Not on file documented as of this encounter Last Filed Vital Signs Vital Sign Reading Time Taken Comments Blood Pressure 138/76 08/07/2018 10:32 AM MOLD WORKER Pulse 74 08/07/2018 10:32 AM MOLD WORKER Temperature - - Respiratory Rate - - Oxygen Saturation 95% 08/07/2018 10:32 AM MOLD WORKER Inhaled Oxygen Concentration - - Weight 72.1 kg (159 lb) 08/07/2018 10:32 AM MOLD WORKER Height 165.1 cm (5' 5 ) 08/07/2018 10:32 AM MOLD WORKER Body Mass Index 26.46 08/07/2018 10:32 AM MOLD WORKER documented in this encounter Progress Notes * Ravinder Mclean MD - 08/07/2018 10:15 AM CST [facility] DATE OF VISIT: 08/07/2018 CHIEF COMPLAINT Chief Complaint Patient presents with ??? Follow-up 3 mo follow up on CAD, HTN, DVT, PVC's, palps, dyslipidemia HPI Linda Garza is a 77 y.o. female with a PMHx of CAD LAD stent, h/o 80% RCA stenosis, HTN, dyslipidemia, chronic recurrent atypical CP, h/o LUE DVT on coumadin, chronic anxiety previously followed in [place]. 07/15/13 she returns today stating she has [...] in the 40's so sent to [facility] by Dr. Terrazas EKG done HR 55bpm. [...] nearly completely resolved seeing Vascular surgery in [place] and is feeling better overall. She is [...] that is why she followed me from [place] and still chooses to see me and [...] pain. Going to see Vascular surgeon in [place] very soon and having vascular studies at [...] under significant stress Still seeing vascular in [place], wrapping legs, gets occ swelling. Still has [...] She does not want to increase Rosuvastatin. MEDICAL HISTORY Past Medical History: Diagnosis Date [...] 1 mg tablet aspirin 81 mg tablet benazepril (LOTENSIN) 10 mg tablet cephalexin (KEFLEX) 250 mg capsule escitalopram (LEXAPRO) 5 mg tablet hydroCHLOROthiazide (HYDRODIURIL) 25 mg tablet nitroglycerin (NITROSTAT) 0.4 mg SL tablet rosuvastatin (CRESTOR) 10 mg tablet warfarin (COUMADIN) 3 mg tablet ALLERGIES Allergies Allergen Reactions ??? Ydapdtx-Bns-Udk Reductase Inhibitors Muscle pain ??? Prednisone ??? [...] for environmental allergies. PHYSICAL EXAM Vitals BP 138/76 (BP Location: Right arm, Patient Position: Sitting) Pulse 74 Ht 165.1 cm (5' 5 ) Wt 72.1 kg (159 lb) SpO2 95% BMI 26.46 kg/m?? Weight: 72.1 kg (159 lb) Height: 165.1 cm (5' 5 ) Body mass index is 26.46 kg/m??. Physical Exam Constitutional: She is oriented [...] edema. She exhibits no tenderness or deformity. trace bilateral LE edema LLE with compression [...] AND OTHER DIAGNOSTIC TESTS Office Visit on 05/12/2018 Component Date Value Ref Range Status ??? SCRIBED Cholesterol, Total 05/24/2018 191 0 - 200 Final ??? SCRIBED HDL 05/24/2018 46 35 - 96 Final ??? SCRIBED LDL 05/24/2018 117 0 - 130 Final ??? SCRIBED Triglycerides 05/24/2018 139 0 - 150 Final Results for orders placed or performed in visit on 05/12/18 Lipid panel Result Value Ref Range SCRIBED Cholesterol, Total 191 0 - 200 SCRIBED HDL 46 35 - 96 SCRIBED LDL 117 0 - 130 SCRIBED Triglycerides 139 0 - 150 Personally reviewed EKG, Echocardiogram, heart monitor 02/2017 occ PVC's, underlying SR, and bloodwork/lipids. ASSESSMENT Diagnoses and all orders for this visit: Coronary artery disease involving assiniboine and sioux coronary artery of assiniboine and sioux heart without angina pectoris (Primary) - Basic metabolic panel; Future - Magnesium; Future - NM MPI SPECT (Rest and/or Stress) Multiple Studies; Future - CBC with auto differential; Future Labile hypertension - NM MPI SPECT (Rest and/or Stress) Multiple Studies; Future Dyslipidemia - NM MPI SPECT (Rest and/or Stress) Multiple Studies; Future PVC (premature ventricular contraction) - ECG 12 lead Statin intolerance Muscle pain - Basic metabolic panel; Future - Magnesium; Future 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 (CMS/HCC) Chronic anticoagulation Bradycardia - ECG 12 lead Diaphoresis - NM MPI SPECT (Rest and/or Stress) Multiple Studies; Future Anxiety PLAN/RECOMMENDATIONS 1. No clear anginal symptoms although episodes of diaphoresis somewhat concerning for atypical anginal. Patient has not had an ischemic evaluation in several years. Repeat Lexiscan stress test to assess for myocardial ischemia. Patient verbalized understanding and is in agreement with this plan of care. She is to notify the office immediately with any new or concerning symptoms and if severe or unrelenting present to the nearest ER via EMS. Aggressive CAD risk modification counseling performed.Continue current medical therapy. Notify office immediately with anginal symptoms. 2. Lipids personally reviewed LDL 291 08/08/17 markedly improved 05/24/18 LDL 117 but still not ideal. Pt not willing to try other statins due to severe myalgias Intolerant to Pravastatin, Simvastatin,and Atorvastatin. PCSK9 inhibitor therapy most reasonable option. She states she won't give herselfan injection which leave Rosuvastatin as a potential option which she is willing to try. 3.Check BMP and Mg given cramping to check electrolytes 4. BP reasonably controlled. Continue Benazepril 10mg [...] and communicate with me about her progress. Doing very well at this time. Monitor for bleeding, call treating doctors with weight loss, new meds or ABxor change in appetite and monitor INR more frequently. 8. Twelve lead EKG today sinus rhythm, nonspecific ST abnormality 63 beats per minute GA 174 milliseconds QRS 94 milliseconds QT corrected 440 milliseconds Over 50% of this visit counseling CAD, HTN, lipids, medications, lifestyle modification. Follow up in the office in 2 months or sooner as needed. Thank you for allowing me the privilege of participating in the care this very pleasant patient. Please do not hesitate to contact me with any additional questions or concerns. Sonia Mclean MD, [facility] WORKER documented in this encounter Plan of Treatment Not on file documented as of this encounter Procedures Procedure Name Priority Date/Time Associated Diagnosis Comments ECG 12-LEAD Routine 08/07/2018 PVC (premature ventricular contraction) Bradycardia documented in this encounter Results * NM MPI SPECT (Rest and/or Stress) Multiple Studies (08/18/2018 10:23 AM MOLD WORKER) Anatomical Region Laterality Modality Body N/A Nuclear Medicine 08/18/2018 9:29 AM MOLD WORKER Narrative 08/18/2018 12:53 PM MOLD WORKER [facility] [address], [place] [address] [address], [place] [address] P:[phone] P:[phone] MPI Imaging Report Patient Name: LINDA GARZA : 1940 Study Date: 08/18/2018 9:29:12 AM Gender: F Tech: Aleah Champion [facility] Location: [facility] Ref.Provider: RAVINDER MCLEAN Height(Cm): 165.1 BSA: Weight(Kg): 72.1 BMI: 26.45Order Provider: RAVINDER MCLEAN Physician: Referring Physician: Dr. Terrazas. HCG Physician: Sonia cMlean M.D. Interpreting Physician: Chandan Neville M.D. Stress [...] Signed By: Tony Neville MD 2018-08-18 12:53:12 MOLD WORKER Electronically Signed By: Tony Neville MD 2018-08-18 12:53:12 MOLD WORKER Procedure Note Tony Neville MD - 08/18/2018 [facility] [address], [place] [address] [address], [place] [address] P:[phone] P:[phone] MPI Imaging Report Patient Name: LINDA GARZAPatient ID: [id number] : [id number] Date: 08/18/2018 9:29:12 AM Gender: FAccession #: [id number] Tech: Aleah Champion [facility] Ref.Provider: RAVINDER MCLEANHeight(Cm): 165.1 BSA: Weight(Kg): 72.1 BMI: 26.45Order Provider: RAVINDER MCLEAN Physician: Referring Physician: Dr. Terrazas. HCG Physician: Sonia Mclean M.D. Interpreting Physician: [...] Signed By: Tony Neville MD 2018-08-18 12:53:12 MOLD WORKER Electronically Signed By: Tony Neville MD 2018-08-18 12:53:12 MOLD WORKER us Ravinder Mclean MD IMG NM PROCEDURES Final Result * ECG 12 lead (08/07/2018) us Ravinder Mclean MD ECG ORDERABLES Final Re sult documented in this encounter Visit Diagnoses Diagnosis Coronary artery disease involving assiniboine and sioux coronary artery of assiniboine and sioux heart without angina pectoris- Primary Labile hypertension Dyslipidemia Other and unspecified hyperlipidemia PVC (premature ventricular contraction) Other premature beats Statin intolerance Muscle pain Unspecified myalgia and myositis 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 (HCC) Chronic anticoagulation Encounter for long-term (current) use of anticoagulants Bradycardia Other specified cardiac dysrhythmias Diaphoresis Generalized hyperhidrosis Anxiety Anxiety state, unspecified Coronary artery disease involving assiniboine and sioux coronary artery of assiniboine and sioux heart without angina pectoris Labile hypertension Dyslipidemia Other and unspecified hyperlipidemia Diaphoresis Generalized hyperhidrosis documented in this encounter Care Teams Wine Steward/Stewardess Relationship Specialty Start Date End Date Sixto Terrazas MD PCP - General 09/21/16 05/01/22 documented as of this encounter
--- OUTSIDE RECORDS SUMMARY | 2024-06-08 20:55 | XMS_ITS | Encounter Summary ---
Author Organization [facility] Address [address] [place] [address] Care Team Providers Care Diesel Locomotive Firer/Fireman Name Role Phone Sixto Terrazas MD Primary Care Provider [phone] Reason for Visit * Reason Comments Follow-up 3 mo follow up on CA D, HTN, PVC's, palps Encounter Details Date Type Department Care Team (Late st Contact Info) Description 09/02/2017 9:15 AM CDT Office Visit [facility] [address] [place] [address] Ravinder Mclean MD [address] [facility] [address] [place], [place] [id number] Coronary artery disease involving ute mountain coronary artery of ute mountain heart without angina pectoris (Primary Dx); Dyslipidemia; Labile hypertension; History of fall; PVC (premature ventricular contraction); Statin intolerance; Anxiety; Chronic anticoagulation; 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 (CMS/HCC); Palpitations Social History Tobacco Use Types Packs/Day Years Used Date Smoking Tobacco: Never Smokeless Tobacco: Never Alcohol Use Standard Drinks/Week Comments Yes 0 (1 standard drink = 0.6 oz pur e alcohol) Comments Unknown Sex and Gender Information Value Date Recorded Sex Assigned at Not on file Legal Sex 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 Gender Identity Not on file Sexual Orientation Not on file documented as of this encounter Last Filed Vital Signs Vital Sign Reading Time Taken Comments Blood Pressure 130/70 09/02/2017 9:34 AM CDT Pulse 99 09/02/2017 9:34 AM CDT Temperature - - Respiratory Rate - - Oxygen Saturation 95% 09/02/2017 9:34 AM CDT Inhaled Oxygen Concentration - - Weight 73.9 kg (163 lb) 09/02/2017 9:34 AM CDT Height 165.1 cm (5' 5 ) 09/02/2017 9:34 AM CDT Body Mass Index 27.12 09/02/2017 9:34 AM CDT documented in this encounter Ordered Prescriptions Prescription Sig Dispense Quantity Refills Last Filled Start Date End Date hydroCHLOROthiazid e (HYDRODIURIL) 25 mg tablet Take 1 tablet (25 mg total) by mouth daily. 30 tablet 11 09/02/2017 11/19/2017 documented in this encounter Progress Notes * Ravinder Mclean MD - 09/02/2017 9:15 AM CDT [facility] DATE OF VISIT: 09/02/2017 CHIEF COMPLAINT Chief Complaint Patient presents with ??? Follow-up 3 mo follow up on CAD, HTN, PVC's, palps HPI Linda Garza is a 76 y.o. female with a PMHx of CAD LAD stent, h/o 80% RCA stenosis, HTN, dyslipidemia, chronic recurrent atypical CP, h/o LUE DVT on coumadin, chronic anxiety previously followed in [place]. 07/15/13 she returns today stating she has [...] noted in the 40's so sent to [place] ER by Dr. Terrazas EKG done HR 55bpm. Told to reduce Atenolol then still noting bradycardia so stopped 8/12 along with Pravastatin. States not feeling much [...] nearly completely resolved seeing Vascular surgery in [place] and is feeling better overall. She is [...] that is why she followed me from [place] and still chooses to see me and still believes that. Later, she added she takes Spironolactone-HCTZ kind of every other day. BP has been under control. Intolerant to statins and will not try again due to severe myalgias. MEDICAL HISTORY Past Medical History: Diagnosis Date [...] per tablet warfarin (COUMADIN) 3 mg tablet spironolactone-hydroCHLOROthiazide (ALDACTAZIDE) 25-25 mg per tablet atorvastatin (LIPITOR) 10 mg tablet hydroCHLOROthiazide (HYDRODIURIL) 25 mg tablet ALLERGIES Allergies Allergen Reactions ??? Mhnaebf-Lud-Yil Reductase Inhibitors Muscle pain ??? Prednisone ??? Propoxyphene-Acetaminophen REVIEW OF SYSTEMS Review of Systems Constitution: Positive for malaise/fatigue. Negative for decreased appetite, diaphoresis, fever, weakness and night sweats. HENT: Negative for hearing loss and nosebleeds. Eyes: Negative for blurred vision and pain. Cardiovascular: Positive for irregular heartbeat and palpitations. Negative for chest pain, claudication, dyspnea on exertion, leg swelling, near-syncope, orthopnea and syncope. Respiratory: [...] Negative for environmental allergies. PHYSICAL EXAM Vitals: 09/02/17 0934 BP: 130/70 Pulse: 99 SpO2: 95% Weight: 73.9 kg (163 lb) Height: 165.1 cm (5' 5 ) Body mass index is 27.12 kg/m??. Physical Exam Constitutional: She is oriented [...] edema. She exhibits no tenderness or deformity. Trace RLE edema to mid vogel LLE with compression stocking to just below knee, minimal pedal edema, no significant edema from ankle up. Walking with cane Lymphadenopathy: She has no [...] for this visit: Coronary artery disease involving ute mountain coronary artery of ute mountain heart without angina pectoris (Primary) - Basic metabolic panel; Future Dyslipidemia Labile hypertension History of fall PVC (premature ventricular contraction) Statin intolerance Anxiety Chronic anticoagulation 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 (CMS/HCC) Palpitations Other orders - hydroCHLOROthiazide (HYDRODIURIL) 25 mg tablet; Take 1 tablet (25 mg total) by mouth daily. PLAN/RECOMMENDATIONS 1. No anginal sxs. Atypical GI related sxs resolved with eating soft foods. Aggressive CAD risk modification counseling performed. Continue current medical therapy. Notify office immediately with anginal symptoms. 2. Lipids markedly elevated. Pt not willing to try other statins due to severe myalgias. PCSK9 inhibitor therapy most reasonable option, but advised will need to discuss at her next visit given time spent on issues today. 3. Pt still dealing with anxiety issues but also upset as above. Defer to Dr. Terrazas in this regard. 4. BP reasonably controlled and improved on repeat check. Continue Benazepril 20mg daily. Given confusion with taking Spironolactone-HCTZ QOD sort [...] BB given symptomatic bradycardia and hypotension. Monitor palps. PT was trying to explain her lower HR was an improvement even off BB, however, I am concerned if this continues may be more a function of progressing sick sinus syndrome. At this time, there is no immediate concern or evidence of recurrent symptomatic bradycardia off BB. GIven her infrequent short-lived palpitations estephania knox wishes to monitor and not repeat Holter. Advised she is more likely to experience palps or PVC's off BB but she is tolerating and comfortable thus far. 7. Lifestyle modification counseling performed. Weight loss, exercise, reduction in caloric intake. 8. Cont to follow up with vascular as scheduled and communicate with me about her progress. I reiterated my dedication to her and desire to provide the best care I can and that I appreciated her taking the time to talk to me and tell me how she was feeling her concerns. While she again reiterated she does not blame me for anything I reminded her I am interested in her well being first and foremost. Even though it was presented to me initially by the pt her PCP had addressed and was managing herleg pain after her local injury and her DVT appears to have been related to local trauma (provoked). As such, it does not appear she will require indefinite systemic A/C, however, this needs to clarif ied by Dr. Terrazas and vascular as they are managing this issue. Over 50% of this visit counseling CAD, HTN, lipids, medications, lifestyle modification. 50 minutesspent with patient in the office. Follow up in the office in 1-2 months or sooner as needed. Thank you for allowing me the privilege of participating in the care this very pleasant patient. Please do not hesitate to contact me with any additional questions or concerns. Sonia Mclean MD, [facility] documented in this encounter Plan of Treatment Not on file documented as of this encounter Visit Diagnoses Diagnosis Coronary artery disease involving ute mountain coronary artery of ute mountain heart without angina pectoris- Primary Dyslipidemia Other and unspecified hyperlipidemia Labile hypertension History of fall Personal history of fall PVC (premature ventricular contraction) Other premature beats Statin intolerance Anxiety Anxiety state, unspecified Chronic anticoagulation Encounter for long-term (current) use of anticoagulants 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 (HCC) Palpitations documented in this encounter Discontinued Medications Medication Sig Discontinue Reason Start Date End Da te spironolactone-hydroCHLO ROthiazide (ALDACTAZIDE) 25-25 mg per tablet take 1 tablet by oral route every day 08/21/2016 09/02/2017 documented as of this encounter Historical Medications * This list may reflect changes made after this encounter. warfarin (COUMADIN) 3 mg tablet Take 1 tablet (3 mg total) by mouth daily Take as directed per After Visit Summary. 06/13/2023 added in this encounter Care Teams Diesel Locomotive Firer/Fireman Relationship Specialty Start Date End Date Sixto Terrazas MD PCP - General 09/21/16 05/01/22 documented as of this encounter
--- OUTSIDE RECORDS SUMMARY | 2024-06-08 20:55 | XMS_ITS | Encounter Summary ---
Author Organization [facility] Address [address] [facility] [address] [place] [address] Care Team Providers Care Peanut Roaster Name Role Phone Sixto Terrazas MD Primary Care Provider [phone] Reason for Visit * Reason Comments Follow-up Dizziness, sweating chest Encounter Details Date Type Department Care Team (Late st Contact Info) Description 05/12/2018 11:00 AM ELECTRONIC SEMICONDUCTOR PROCESSOR Office Visit [facility] [address] [place] [address] Codie Mathew NP [address] [facility] [address] [place] [address] Coronary artery disease involving washoe coronary artery of washoe heart without angina pectoris (Primary Dx); Essential hypertension; 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 (CMS/HCC); PVC (premature ventricular contraction); Palpitations; Night sweats; Dyslipidemia; Chronic anticoagulation Social History Tobacco Use Types Packs/Day Years Used Date Smoking Tobacco: Never Smokeless Tobacco: Never Tobacco Cessation:Counseling Given: Yes Alcohol Use Standard Drinks/Week Comments Yes 0 (1 standard drink = 0.6 oz pur e alcohol) Comments Unknown Sex and Gender Information Value Date Recorded Sex Assigned at Not on file Legal Sex 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 ELECTRONIC SEMICONDUCTOR PROCESSOR Gender Identity Not on file Sexual Orientation Not on file documented as of this encounter Last Filed Vital Signs Vital Sign Reading Time Taken Comments Blood Pressure 128/62 05/12/2018 11:21 AM ELECTRONIC SEMICONDUCTOR PROCESSOR Pulse 69 05/12/2018 11:21 AM ELECTRONIC SEMICONDUCTOR PROCESSOR Temperature - - Respiratory Rate - - Oxygen Saturation 95% 05/12/2018 11:21 AM ELECTRONIC SEMICONDUCTOR PROCESSOR Inhaled Oxygen Concentration - - Weight 71.2 kg (157 lb) 05/12/2018 11:21 AM ELECTRONIC SEMICONDUCTOR PROCESSOR Height 165.1 cm (5' 5 ) 05/12/2018 11:21 AM ELECTRONIC SEMICONDUCTOR PROCESSOR Body Mass Index 26.13 05/12/2018 11:21 AM ELECTRONIC SEMICONDUCTOR PROCESSOR documented in this encounter Ordered Prescriptions Prescription Sig Dispense Quantity Refills Last Filled Start Date End Date nitroglycerin (NITROSTAT) 0.4 mg SL tabletIndications: Coronary artery disease involving washoe coronary artery of washoe heart without angina pectoris Place 1 tablet (0.4 mg total) under the tongue every 5 (five) minutes as needed for chest pain. May repeat dose q 5 min, up to 3 doses total 25 tablet 3 05/12/2018 1 documented in this encounter Progress Notes * Codie Mathew NP - 05/12/2018 11:00 AM CST [facility] Date of Visit: 05/12/2018 Patient ID: Linda Garza [id number] Chief Complaint: Linda Garza is a 77 y.o. female who is an established patient of Dr. Mclean here for routine follow-up of her CAD, HTN and symptomatic PVCs. History of Present Illness: Linda Garza is a 77 y.o. female with a PMHx of CAD LAD stent, h/o 80% RCA stenosis, HTN, dyslipidemia, chronic recurrent atypical CP, h/o LUE DVT on coumadin, chronic anxiety previously followed in [place]. 07/15/13 she returns today stating she has [...] noted in the 40's so sent to [facility] by Dr. Terrazas EKG done [...] nearly completely resolved seeing Vascular surgery in [place] and is feeling better overall. She [...] that is why she followed me from [place] and still chooses to see me and [...] pain. Going to see Vascular surgeon in [place] very soon and having vascular studies at [...] under significant stress Still seeing vascular in [place], wrapping legs, gets occ swelling. Still [...] other accompanying symptoms with these night sweats. Records that I personally reviewed on the day of this visit include: (the interpretation is outlined in the chief complaint above) 02/17/[address] Mclean, 04/22/2018 lipid panel I have also reviewed: allergies, current medications, past family history, past medical history, past social history, past surgical history and problem list Review of Systems Constitution: Positive for night sweats. Negative for fever, malaise/fatigue, weight gain and weight loss. HENT: Negative for hearing loss. Eyes: Negative for visual disturbance. Cardiovascular: Positive for leg swelling and palpitations. Negative for chest pain, claudication, dyspnea on exertion, orthopnea, paroxysmal nocturnal dyspnea and syncope. Respiratory: Positive for snoring. Negative for cough, hemoptysis, shortness of breath and wheezing. Hematologic/Lymphatic: Bruises/bleeds easily. Skin: Negative for poor wound healing and rash. No easy bruising. No bleeding problems. Musculoskeletal: Positive for joint pain and myalgias. Gastrointestinal: Negative for heartburn, nausea and vomiting. No reflux Genitourinary: Negative for hematuria. Neurological: Negative for dizziness, headaches and light-headedness. Psychiatric/Behavioral: Negative for depression. The patient is not nervous/anxious. Vital Signs: BP 128/62 (BP Location: Left arm, Patient Position: Sitting) Pulse 69 Ht 165.1 cm (5' 5 ) Wt 71.2 kg (157 lb) SpO2 95% BMI 26.13 [...] is present with a grade of 2/6 Pulmonary/Chest: Effort normal and breath sounds normal. No respiratory distress. Abdominal: Soft. Bowel sounds are normal. There is no tenderness. Musculoskeletal: Slow gait, ambulates with a cane. Trace bilateral lower extremity edema Neurological: She is alert and oriented to person, place, and time. Skin: Skin is warm and dry. Psychiatric: She has a normal mood and affect. Allergies Allergen Reactions ??? Osacxxf-Lxr-Moo Reductase Inhibitors Muscle pain ??? Prednisone ??? Propoxyphene-Acetaminophen Current Outpatient Prescriptions: ??? ALPRAZolam (XANAX) 1 mg tablet, take [...] BY MOUTH DAILY, Disp: 90 tablet, Rfl: 0 ??? cephalexin (KEFLEX) 250 mg capsule, Take 250 mg by mouth daily., Disp: , Rfl: ??? escitalopram (LEXAPRO) 5 mg tablet, Take 5 mg by mouth daily., Disp: , Rfl: ??? hydroCHLOROthiazide (HYDRODIURIL) 25 mg tablet, TAKE 1 TABLET BY MOUTH DAILY, Disp: 90 tablet, Rfl: 0 ??? rosuvastatin (CRESTOR) 10 mg tablet, Take 1 tablet (10 mg total) by mouth daily., Disp: 30 tablet, Rfl: 11 ??? warfarin (COUMADIN) 3 mg tablet, Take 3 mg by mouth daily. Take as directed per After Visit Summary., Disp: , Rfl: ??? nitroglycerin (NITROSTAT) 0.4 mg SL tablet, Place 1 tablet (0.4 mg total) under the tongue every 5 (five) minutes as needed for chest pain. May repeat dose q 5 min, up to 3 doses total, Disp: 25 tablet, Rfl: 3 Assessment: Diagnoses and all orders for this visit: Coronary artery disease involving washoe coronary artery of washoe heart without angina pectoris (Primary) - nitroglycerin (NITROSTAT) 0.4 mg SL tablet; Place 1 tablet (0.4 mg total) under the tongue every 5 (five) minutes as needed for chest pain. May repeat dose q 5 min, up to 3 doses total Essential hypertension - Basic metabolic panel; Future 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 (CMS/HCC) PVC (premature ventricular contraction) Palpitations Night sweats Dyslipidemia - Lipid panel; Future Chronic anticoagulation Plan/Recommendations: Coronary artery disease appears stable. She takes aspirin 81 mg daily (which was reduced from aspirin 325 mg daily when she went on warfarin for DVT). Fortunately she has been able to tolerate rosuvastatin and her lipids are improving. She asks for refill of sublingual nitroglycerin as the tablets she has at home are starting to crumble. Blood pressure is well controlled with benazepril and hydrochlorothiazide. She did not get the BMP to monitor her electrolytes after starting the hydrochlorothiazide at the last visit. Therefore I gave her a new order today, and she will go to the lab 1 day this week. She follows up with the vascular surgeon tomorrow regarding her DVT. She had symptomatic bradycardia and hypotension when she was on a beta-bharati for her PVCs. A symptoms resolved when the beta-bharati was stopped. At the present time, she is not having many palpitations in his satisfied with how she is feeling. I told her to call our office if she develops more frequent palpitations again and she agreed. I reassured her that night sweats alone are not an indication of any kind of cardiac condition. If she had diaphoresis accompanied by chest pain, this can indicate acute coronary syndrome. She is nothaving any chest pain with her night sweats. Return to the office to see Dr. Mclean in 3 months. Call us sooner with questions or concerns. Sherequested an order to recheck her fasting lipids prior to the next appointment. RASHAD Gil-BC Nurse Practitioner with [facility] This note is dictated and transcribed using [employer] Direct Software. Concept Artist variancesmay occur. Despite proofreading, typographical errors may occur. TRONIC SEMICONDUCTOR PROCESSOR documented in this encounter Plan of Treatment Scheduled Orders Name Type Priority Associated Diagnoses Orde r Schedule Basic metabolic panel Lab Routine Essential hypertension Expected: 05/12/2018, Expires: 05/12/2019 documented as of this encounter Procedures Procedure Name Priority Date/Time Associated Diagnosis Comments LIPID PANEL Routine 05/24/2018 Dyslipidemia documented in this encounter Results * Lipid panel (05/24/2018) SCRIBED Cholesterol, Total 191 0 - 200 EXTERNAL LAB SCRIBED HDL 46 35 - 96 EXTERNAL LAB SCRIBED LDL 117 0 - 130 EXTERNAL LAB SCRIBED Triglycerides 139 0 - 150 EXTERNAL LAB Blood specimen (specimen) 05/24/2018 us Codie Mathew NP LAB BLOOD ORDERABLES Deyanira l Result EXTERNAL LAB documented in this encounter Visit Diagnoses Diagnosis Coronary artery disease involving washoe coronary artery of washoe heart without angina pectoris- Primary Essential hypertension Unspecified essential hypertension 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 (HCC) PVC (premature ventricular contraction) Other premature beats Palpitations Night sweats Generalized hyperhidrosis Dyslipidemia Other and unspecified hyperlipidemia Chronic anticoagulation Encounter for long-term (current) use of anticoagulants documented in this encounter Discontinued Medications Medication Sig Discontinue Reason Start Date End Da te aspirin 325 mg tablet take 1 tablet by oral route every day Alternate therapy 08/10/2015 05/12/2018 documented as of this encounter Historical Medications * This list may reflect changes made after this encounter. aspirin 81 mg tablet Take 1 tablet (81 mg total) by mouth daily cephalexin (KEFLEX) 250 mg capsule Take 250 mg by mouth daily. 03/27/2018 12/24/2019 added in this encounter Care Teams Peanut Roaster Relationship Specialty Start Date End Date Sixto Terrazas MD PCP - General 09/21/16 05/01/22 documented as of this encounter
--- OUTSIDE RECORDS SUMMARY | 2024-06-08 20:55 | XMS_ITS | Encounter Summary ---
Author Organization [facility] Address [address] [facility] [address] [place] [address] Care Team Providers Care Umbrella Supervisor Name Role Phone Sixto Lund MD Primary Care Provider [phone] Reason for Visit * Reason Comments Fatigue weakness Shortness of Breath Encounter Details Date Type Department Care Team (Late st Contact Info) Description 03/19/2017 2:30 PM CDT Office Visit [facility] [address] [place] [id number] Codie Mathew NP [address] [facility] [address] [facility] [address] [place] [address] Palpitations (Primary Dx); Fatigue, unspecified type; Bradycardia; PVC (premature ventricular contraction); Anxiety; Dyslipidemia Social History Tobacco Use Types Packs/Day Years Used Date Smoking Tobacco: Never Smokeless Tobacco: Never Alcohol Use Standard Drinks/Week Comments Yes 0 (1 standard drink = 0.6 oz pur e alcohol) Comments Unknown Sex and Gender Information Value Date Recorded Sex Assigned at Not on file Legal Sex 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 TAB BUILDER Gender Identity Not on file Sexual Orientation Not on file documented as of this encounter Last Filed Vital Signs Vital Sign Reading Time Taken Comments Blood Pressure 142/86 03/19/2017 2:50 PM CDT Pulse 63 03/19/2017 2:50 PM CDT Temperature - - Respiratory Rate - - Oxygen Saturation 94% 03/19/2017 2:50 PM CDT Inhaled Oxygen Concentration - - Weight 75.9 kg (167 lb 4.8 oz) 03/19/2017 2:50 P M CDT Height 165.1 cm (5' 5 ) 03/19/2017 2:50 PM CDT Body Mass Index 27.84 03/19/2017 2:50 PM CDT documented in this encounter Patient Instructions * Patient Instructions* Codie Mathew NP - 03/19/2017 2:30 PM CDT STOP PROPRANOLOL FOR NOW RESTART ATENOLOL 1/2 TABLET NEEDED: ONLY TAKE NEEDED ONCE IN A DAY IF HEART RATE IS 100 OR HIGHER. Get cholesterol check a few days before next appt with Dr. Mclean (fasting) documented in this encounter Ordered Prescriptions Prescription Sig Dispense Quantity Refills Last Filled Start Date End Date atenolol (TENORMIN) 50 mg tablet Take 0.5 tablets (25 mg total) by mouth daily. ONLY TAKE NEEDED ONCE IN A DAY IF HEART RATE IS 100 OR HIGHER. 03/19/2017 7 documented in this encounter Progress Notes * Codie Mathew NP - 03/19/2017 2:30 PM CDT Patient ID: Linda Garza Chief Complaint: Linda Garza is a 76 y.o. female with a PMHx of CAD LAD stent, h/o 80% RCA stenosis, HTN, dyslipidemia, chronic recurrent atypical CP, h/o LUE DVT on coumadin, chronic anxiety previously followed in [place]. 07/15/13 she returns today stating she has [...] to anxiety, occ CP resolved with [facility]. VEry frustrated with her and can't handle him. States verbally abusive., husbandwon't bath, sits in udnerwear, kids don't help. +palps more frequent due [...] noted in the 40's so sent to [facility] by Dr. Lund EKG done HR 55bpm. Told to reduce Atenolol then still noting bradycardia so stopped 02/02 along with Pravastatin. States not feeling much better after stopping meds yet butHR is higher she notes. GREENWOOD's are less but still present. Sweating still an issue at night only. 03/19/2017 OV w/ Codie Quincy: Patient comes into the office today to discuss the results of herevent monitor, bradycardia and palpitations. She states she feels generally fatigued, worn out, dizzy and short of breath. At her last visit with Dr. Mclean, her atenolol was placed on hold for symptomatic bradycardia and she was given a 14 day event monitor to wear. On 03/08/2017 she went to PCP Dr. Lund's office and showed him a record of her heart rates ranging 81-105 b.p.m. He prescribed propranolol ER 60 mg daily. After starting the propranolol, her heart rates have been 52-69 b.p.m. and she is very concerned about this. She tells me she has noticed her heart rate will elevate after she visits her in the shelter. She also tells me she stopped the pravastatin and still blames a lot of her symptoms on taking the pravastatin and cannot understand why her total cholesterol was 329. 02/06/2017 7-day event monitor: Underlying rhythm sinus with average heart rate 74 b.p.m.. No AFib. No significant bradycardia or tachyarrhythmia. Ten rhythm strips associated with symptoms were recorded. Six of these showed an isolated PVC. Records Reviewed this visit: The last office visit note from Dr. Mclean, event monitor report, telephone call messages, patient's home records of blood pressure and heart rate readings I have reviewed: allergies, current medications, past family history, past medical history, past social history, past surgical history and problem list Review of Systems Constitution: Positive for malaise/fatigue and night sweats. Negative for diaphoresis, fever, weight gain and weight loss. HENT: Negative for hearing loss. Eyes: Negative for visual disturbance. Cardiovascular: Positive for chest pain, leg swelling and palpitations. Negative for claudication, dyspnea on exertion, orthopnea, paroxysmal nocturnal dyspnea and syncope. Leg pain when walking Respiratory: Positive for shortness of breath, sleep disturbances due to breathing and snoring. Negative for cough, hemoptysis and wheezing. Hematologic/Lymphatic: Bruises/bleeds easily. Skin: Negative for poor wound healing and rash. No easy bruising. No bleeding problems. Musculoskeletal: Negative for joint pain and myalgias. Gastrointestinal: Negative for heartburn, nausea and vomiting. No reflux Genitourinary: Negative for hematuria. Neurological: Positive for headaches. Negative for dizziness and light-headedness. Psychiatric/Behavioral: Positive for depression. The patient is not nervous/anxious. Vital Signs: BP 142/86 (BP Location: Right arm, Patient Position: Sitting) Pulse 63 Ht 165.1 cm (5' 5 ) Wt75.9 kg (167 lb 4.8 oz) SpO2 94% BMI 27.84 kg/m?? Physical Exam Constitutional: She is oriented to person, place, and time. She appears well- developed and well-nourished. No distress. HENT: Head: Normocephalic and atraumatic. Nose: Nose normal. Mouth/Throat: Mucous membranes are normal. Eyes: Conjunctivae and EOM are normal. Pupils are equal, round, and reactive to light. No scleral icterus. Neck: Normal range of motion. No JVD present. No tracheal deviation present. Cardiovascular: Normal rate, regular rhythm and normal heart sounds. No murmur heard. Pulmonary/Chest: Effort normal and breath sounds normal. No respiratory distress. Abdominal: Soft. Bowel sounds are normal. There is no tenderness. Musculoskeletal: Normal range of motion. She exhibits no edema. Neurological: She is alert and oriented to person, place, and time. Skin: Skin is warm and dry. Psychiatric: Her mood appears anxious. Current Outpatient Prescriptions: ??? ALPRAZolam (XANAX) 1 mg tablet, take 1 tablet by oral route every day as needed (Patient takingdifferently: Take 1 mg by mouth 3 (three) times a day as needed. ), Disp: 0, Rfl: 0 ??? aspirin 325 mg tablet, take 1 tablet by oral route every day, Disp: 0, Rfl: 0 ??? benazepril (LOTENSIN) 20 mg tablet, take 1 tablet by oral route every day, Disp: 0, Rfl: 0 ??? escitalopram (LEXAPRO) 5 mg tablet, Take 5 mg by mouth daily., Disp: , Rfl: ??? HYDROcodone-acetaminophen (VICODIN) 5-300 mg per tablet, take 1 tablet by oral route every 4 - 6 hours as needed for pain, Disp: 0, Rfl: 0 ??? propranolol LA (INDERAL LA) 60 mg 24 hr capsule, , Disp: , Rfl: ??? spironolactone-hydroCHLOROthiazide (ALDACTAZIDE) 25-25 mg per tablet, take 1 tablet by oral route every day (Patient taking differently: Take by mouth every other day. ), Disp: 0, Rfl: 0 ??? pravastatin (PRAVACHOL) 80 mg tablet, Take 1 tablet (80 mg total) by mouth daily. (Patient not taking: Reported on 03/19/2017 ), Disp: 90 tablet, Rfl: 3 Assessment: Diagnoses and all orders for this visit: 1. Palpitations (Primary) 2. Fatigue, unspecified type 3. Bradycardia 4. PVC (premature ventricular contraction) 5. Anxiety Plan/Recommendations: I reviewed the results of the event monitor with her in detail. The palpitations she feels could beisolated PVCs. I explained to her that this sensation can be annoying but is not harmful. My feeling is the propranolol is now causing her to have more bradycardia because atenolol did the same thing. She has only recorded mild tachycardia at home (highest heart rate 105 bpm) and seems kelli correlated with emotional stress. I recommend she stop the propranolol at this time. I recommendshe try using the atenolol as needed: Take atenolol 25 mg once daily if heart rate is recorded 100 b.p.m. or higher. Continue benazepril daily for BP control. She has stopped pravastatin again is adamant that she does not want to retake it. She does not wantto entertain the idea of an injectable. It still perplexing that her cholesterol level was so high on pravastatin, even though she confirmed with pharmacist that was what she was taking. I gave her an order to recheck a fasting lipid panel prior to her next visit with Dr. Mclean. Return to the office to see Dr. Mclean in 2 months. Call us sooner with questions or concerns. Total visit time 35 minutes, 30 minutes of which was spent in direct [id number] consultation withthe patient listening to her concerns and discussing a treatment plan. At the end of this visit, the patient seemed satisfied with the plan in place. documented in this encounter Plan of Treatment Not on file documented as of this encounter Visit Diagnoses Diagnosis Palpitations- Primary Fatigue, unspecified type Bradycardia Other specified cardiac dysrhythmias PVC (premature ventricular contraction) Other premature beats Anxiety Anxiety state, unspecified Dyslipidemia Other and unspecified hyperlipidemia documented in this encounter Discontinued Medications Medication Sig Discontinue Reason Start Date End Da te HYDROcodone-acetaminop hen (NORCO) 5-325 mg per tabletIndications:Pain Take 1 tablet by mouth every 6 (six) hours as needed. Discontinued by another clinician 03/19/2017 atorvastatin (LIPITOR) 10 mg tablet Discontinued by another clinician 03/08/2017 03/19/2017 atenolol (TENORMIN) 50 mg tablet take 1 tablet by oral route every day Discontinued by another clinician 07/15/2013 03/19/2017 propranolol LA (INDERAL LA) 60 mg 24 hr capsule Alternate therapy 03/08/2017 03/19/2017 documented as of this encounter Historical Medications * This list may reflect changes made after this encounter. Medication Sig Dispense Quantity Refills Last Filled Start D ate End Date propranolol LA (INDERAL LA) 60 mg 24 hr capsule 03/08/2017 03/19/2017 atorvastatin (LIPITOR) 10 mg tablet 03/08/2017 03/19/2017 added in this encounter Care Teams Umbrella Supervisor Relationship Specialty Start Date End Date Sixto Lund MD PCP - General 09/21/16 05/01/22 documented as of this encounter
--- OUTSIDE RECORDS SUMMARY | 2024-06-08 20:55 | XMS_ITS | Encounter Summary ---
Author Organization [facility] Address [address] [place] [address] [address] [place] [address] Care Team Providers Care Brake Operator Sheet Metal Name Role Phone Sixto Terrazas MD Primary Care Provider [phone] Reason for Visit * Reason Comments Follow-up 2 mo follow up on CA D, HTN, dyslipidemia, PVC, DVT, ni Encounter Details Date Type Department Care Team (Late st Contact Info) Description 10/07/2018 4:15 PM CDT Office Visit [facility] [address] [address] [address] [place] [address] Ravinder Mclean MD [address] [facility] [address] [place], [place] [id number] Coronary artery disease involving [place] coronary artery of [place] heart without angina pectoris (Primary Dx); 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 (CMS/HCC); Dyslipidemia; Labile hypertension; History of fall; Statin intolerance; Chronic anticoagulation; Bradycardia; Palpitations Social History Tobacco Use Types Packs/Day Years Used Date Smoking Tobacco: Never Smokeless Tobacco: Never Alcohol Use Standard Drinks/Week Comments Yes 0 (1 standard drink = 0.6 oz pur e alcohol) Comments Unknown Sex and Gender Information Value Date Recorded Sex Assigned at Not on file 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 Gender Identity Not on file Sexual Orientation Not on file documented as of this encounter Last Filed Vital Signs Vital Sign Reading Time Taken Comments Blood Pressure 138/80 10/07/2018 4:01 PM CDT Pulse 85 10/07/2018 4:01 PM CDT Temperature - - Respiratory Rate - - Oxygen Saturation 96% 10/07/2018 4:01 PM CDT Inhaled Oxygen Concentration - - Weight 71.7 kg (158 lb) 10/07/2018 4:01 PM CDT Height 165.1 cm (5' 5 ) 10/07/2018 4:01 PM CDT Body Mass Index 26.29 10/07/2018 4:01 PM CDT documented in this encounter Progress Notes * Ravinder Mclean MD - 10/07/2018 4:15 PM CDT [facility] DATE OF VISIT: 10/07/2018 CHIEF COMPLAINT Chief Complaint Patient presents with ??? Follow-up 2 mo follow up on CAD, HTN, dyslipidemia, PVC, DVT, ni HPI Linda Garza is a 77 y.o. female with a PMHx of CAD LAD stent, h/o 80% RCA stenosis, HTN, dyslipidemia, chronic recurrent atypical CP, h/o LUE DVT on coumadin, chronic anxiety previously followed in [place]. 07/15/13 she returns today stating she has [...] noted in the 40's so sent to [place] ER by Dr. Terrazas EKG done HR [...] nearly completely resolved seeing Vascular surgery in [place] and is feeling better overall. She is [...] that is why she followed me from [place] and still chooses to see me and [...] pain. Going to see Vascular surgeon in [place] very soon and having vascular studies at [...] under significant stress Still seeing vascular in [place], wrapping legs, gets occ swelling. Still has [...] 145). Says her R hand is improving. MEDICAL HISTORY Past Medical History: Diagnosis Date ??? Cardiovascular disease Coronary Artery Disease ??? HX OTHER MEDICAL Chronic Anxiety ??? HX OTHER MEDICAL DVT: LUE ??? Hypertension Hypertension ??? Hypothyroidism Hypothyroidism Social History Tobacco Use ??? Smoking status: Never Smoker ??? Smokeless tobacco: Never Used Substance Use Topics ??? Alcohol use: Yes ??? Drug use: Not on file History reviewed. No pertinent family history. MEDICATIONS HOME MEDICATIONS : ALPRAZolam (XANAX) 1 mg tablet aspirin 81 mg tablet benazepril (LOTENSIN) 10 mg tablet cephalexin (KEFLEX) 250 mg capsule escitalopram (LEXAPRO) 5 mg tablet hydroCHLOROthiazide (HYDRODIURIL) 25 mg tablet nitroglycerin (NITROSTAT) 0.4 mg SL tablet rosuvastatin (CRESTOR) 10 mg tablet warfarin (COUMADIN) 3 mg tablet ALLERGIES Allergies Allergen Reactions ??? Ngutvsj-Msw-Gnr Reductase Inhibitors Muscle pain ??? Prednisone ??? [...] for excessive daytime sleepiness, focal weakness, headaches, light-headedness, loss of balance and weakness. Psychiatric/Behavioral: Negative for altered mental status, depression and memory loss. The patientis nervous/anxious. Allergic/Immunologic: Negative for environmental allergies. PHYSICAL EXAM Vitals BP 138/80 (BP Location: Right arm, Patient Position: Sitting) Pulse 85 Ht 165.1 cm (5' 5 ) Wt 71.7 kg (158 lb) SpO2 96% BMI 26.29 kg/m?? Weight: 71.7 kg (158 lb) Height: 165.1 cm (5' 5 ) Body mass index is 26.29 kg/m??. Physical Exam Constitutional: She is oriented [...] AND OTHER DIAGNOSTIC TESTS Office Visit on 10/07/2018 Component Date Value Ref Range Status ??? Cholesterol, POC 10/07/2018 258 mg/dL Final ??? HDL, POC 10/07/2018 49 mg/dL Final ??? Triglycerides, POC 10/07/2018 256 mg/dL Final ??? LDL, Direct, POC 10/07/2018 158 mg/dL Final ??? Chol/HDL Ratio, POC 10/07/2018 5.3 Final ??? Non-HDL Cholesterol, POC 10/07/2018 209 mg/dL Final ??? Cholesterol Total, POC 10/07/2018 258 mg/dL Final Results for orders placed or performed in visit on 10/07/18 POCT lipid panel Result Value Ref Range Cholesterol, POC 258 mg/dL HDL, POC 49 mg/dL Triglycerides, POC 256 mg/dL LDL, Direct, POC 158 mg/dL Chol/HDL Ratio, POC 5.3 Non-HDL Cholesterol, POC 209 mg/dL Cholesterol Total, POC 258 mg/dL 08/18/18 Lexiscan Stress test: Conclusions: Global left ventricular function is normal. Left ventricular ejection fraction is 69 %. Myocardial perfusion imaging is normal. Negative EKG portion of stress test. Personally reviewed EKG, Echocardiogram, heart monitor 02/2017 occ PVC's, underlying SR, and bloodwork/lipids. ASSESSMENT Diagnoses and all orders for this visit: Coronary artery disease involving [place] coronary artery of [place] heart without angina pectoris (Primary) - CBC with auto differential; Future - Basic metabolic panel; Future 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 (CMS/HCC) Dyslipidemia - POCT lipid panel Labile hypertension History of fall Statin intolerance Chronic anticoagulation Bradycardia Palpitations PLAN/RECOMMENDATIONS 1. No clear anginal symptoms although episodes of diaphoresis somewhat concerning for atypical anginal. She is to notify the office immediately with any new or concerning symptoms and if severe or unrelenting present to the nearest ER via EMS. Aggressive CAD risk modification counseling performed. C ontinue current medical therapy. Notify office immediately with anginal symptoms. -Stress test negative EF 69% 08/18/18 2. Lipids personally reviewed LDL 291 10/07/18 markedly improved 10/07/18 LDL 158, much worse, question compliance with Rosuvastatin although pt claims compliance. PCSK9 inhibitor therapy most reasonable option. She states she won't give herself an injection. 3. Monitor for bleeding very closely. If [...] appetite and monitor INR more frequently. 8. Check BMP and CBC, Na slightly elevated at 146 last check. 9. PCP managing INR. Monitor for bleeding. Defer to PCP. Over 50% of this visit counseling CAD, [...] [facility] documented in this encounter Plan of Treatment Not on file documented as of this encounter Procedures Procedure Name Priority Date/Time Associated Diagnosis Comments POCT LIPID PANEL Routine 10/07/2018 5:19 PM CDT Dyslipidemia documented in this encounter Results * POCT lipid panel (10/07/2018 5:19 PM CDT) Cholesterol, POC 258 mg/dL HDL, POC 49 mg/dL Triglycerides, POC 256 mg/dL LDL Cholesterol POC 158 mg/dL Chol/HDL Ratio, POC 5.3 Non-HDL Cholesterol, POC 209 mg/dL Cholesterol Total, POC 258 mg/dL Blood specimen (specimen) 10/07/2018 5:19 PM CDT Ravinder Mclean MD POINT OF CARE TEST ORDER MALOU Final Result documented in this encounter Visit Diagnoses Diagnosis Coronary artery disease involving [place] coronary artery of [place] heart without angina pectoris- Primary 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 (HCC) Dyslipidemia Other and unspecified hyperlipidemia Labile hypertension History of fall Personal history of fall Statin intolerance Chronic anticoagulation Encounter for long-term (current) use of anticoagulants Bradycardia Other specified cardiac dysrhythmias Palpitations documented in this encounter Care Teams Brake Operator Sheet Metal Relationship Specialty Start Date End Date Sixto Terrazas MD PCP - General 09/21/16 05/01/22 documented as of this encounter
--- OUTSIDE RECORDS SUMMARY | 2024-06-08 20:55 | XMS_ITS | Encounter Summary ---
Author Organization [facility] Address [address] [place] [address] Care Team Providers Care Machine Filler Name Role Phone Sixto Lund MD Primary Care Provider [phone] Reason for Visit * Reason Comments Follow-up 6 mo follow up on CA D, HTN Encounter Details Date Type Department Care Team (Latest Contact Info) Description 02/06/2017 8:45 AM CDT Office Visit [facility] [address] [facility] [address] [place] [id number] Ravinder Mclean MD [address] [facility] [address] [place], [place] [id number] Benign hypertension (Primary Dx); Recurrent falls; Dyslipidemia; Coronary artery disease of [place] artery of [place] heart with stable angina pectoris (CMS/HCC); Statin intolerance; Bradycardia; Orthostatic hypotension; Anxiety; Deep vein thrombosis (DVT) of left upper extremity, unspecified chronicity, unspecified vein (CMS/HCC); 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; Palpitations Social History Tobacco Use Types Packs/Day Years Used Date Smoking Tobacco: Never Smokeless Tobacco: Never Alcohol Use Standard Drinks/Week Comments Yes 0 (1 standard drink = 0.6 oz pur e alcohol) Comments Unknown Sex and Gender Information Value Date Recorded Sex Assigned at Not on file 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 Sex 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 Gender Identity Not on file Sexual Orientation Not on file documented as of this encounter Last Filed Vital Signs Vital Sign Reading Time Taken Comments Blood Pressure 132/62 02/06/2017 8:55 AM CDT Pulse 66 02/06/2017 8:55 AM CDT Temperature - - Respiratory Rate 16 02/06/2017 8:55 AM CDT Oxygen Saturation - - Inhaled Oxygen Concentration - - Weight 74.4 kg (164 lb) 02/06/2017 8:55 AM CDT Height 165.1 cm (5' 5 ) 02/06/2017 8:55 AM CDT Body Mass Index 27.29 02/06/2017 8:55 AM CDT documented in this encounter Ordered Prescriptions Prescription Sig Dispense Quantity Refills Last Filled Start Date End Date pravastatin (PRAVACHOL) 80 mg tablet Take 1 tablet (80 mg total) by mouth daily. 90 tablet 3 02/06/2017 05/20/2017 documented in this encounter Progress Notes * Ravinder Mclean MD - 02/06/2017 8:45 AM CDT [facility] DATE OF VISIT: 02/06/2017 CHIEF COMPLAINT Chief Complaint Patient presents with ??? Follow-up 6 mo follow up on CAD, HTN HPI Linda Garza is a 76 y.o. female with a PMHx of CAD LAD stent, h/o 80% RCA stenosis, HTN, dyslipidemia, chronic recurrent atypical CP, h/o LUE DVT on coumadin, chronic anxiety previously followed in [place]. 07/15/13 she returns today stating she has [...] noted in the 40's so sent to [place] ER by Dr. Lund EKG done HR 55bpm. Told to reduce Atenolol then still noting bradycardia so stopped 02/02 along with Pravastatin. States not feeling much better after stopping meds yet butHR is higher she notes. GREENWOOD's are less but still present. Sweating still an issue at night only. MEDICAL HISTORY Past Medical History: Diagnosis Date [...] tablet escitalopram (LEXAPRO) 5 mg tablet HYDROcodone-acetaminophen (NORCO) 5-325 mg per tablet pravastatin (PRAVACHOL) 80 mg tablet spironolactone-hydroCHLOROthiazide (ALDACTAZIDE) 25-25 mg per tablet atenolol (TENORMIN) 50 mg tablet HYDROcodone-acetaminophen (VICODIN) 5-300 mg per tablet ALLERGIES Allergies Allergen Reactions ??? Prednisone ??? Propoxyphene-Acetaminophen REVIEW OF SYSTEMS Review of Systems Constitution: Positive for malaise/fatigue. Negative for decreased appetite, diaphoresis, fever, weakness and night sweats. HENT: Negative for headaches, hearing loss and nosebleeds. Eyes: Negative for blurred vision and pain. Cardiovascular: Positive for chest pain, dyspnea on exertion, irregular heartbeat and palpitations.Negative for claudication, leg swelling, near- syncope, orthopnea and syncope. Respiratory: Negative for cough, [...] Negative for excessive daytime sleepiness, focal weakness, light-headedness and loss of balance. Psychiatric/Behavioral: Negative for altered mental status, depression and memory loss. The patientis not nervous/anxious. Allergic/Immunologic: Negative for environmental allergies. PHYSICAL EXAM Vitals: 02/06/17 0855 BP: 132/62 Pulse: 66 Resp: 16 Weight: 74.4 kg (164 lb) Height: 165.1 cm (5' 5 ) Body mass index is 27.29 kg/m??. Physical Exam Constitutional: She is oriented [...] Normal range of motion. She exhibits no edema, tenderness or deformity. Walking with cane Lymphadenopathy: [...] AND OTHER DIAGNOSTIC TESTS Office Visit on 02/06/2017 Component Date Value Ref Range Status ??? SCRIBED Cholesterol, Total 11/21/2016 329 na - na Final ??? SCRIBED HDL 11/21/2016 42 na - na Final ??? SCRIBED LDL 11/21/2016 250 na - na Final ??? SCRIBED Triglycerides 11/21/2016 183 na - na Final ??? Cholesterol, POC 02/06/2017 292 mg/dL Final ??? HDL, POC 02/06/2017 54 mg/dL Final ??? Triglycerides, POC 02/06/2017 152 mg/dL Final ??? LDL, Direct, POC 02/06/2017 208 mg/dL Final ??? Cholesterol Total, POC 02/06/2017 292 mg/dL Final Results for orders placed or performed in visit on 02/06/17 Lipid panel Result Value Ref Range SCRIBED Cholesterol, Total 329 na - na SCRIBED HDL 42 na - na SCRIBED LDL 250 na - na SCRIBED Triglycerides 183 na - na POCT lipid panel Result Value Ref Range Cholesterol, POC 292 mg/dL HDL, POC 54 mg/dL Triglycerides, POC 152 mg/dL LDL, Direct, POC 208 mg/dL Cholesterol Total, POC 292 mg/dL Reviewed EKG, Echocardiogram, stress test, and bloodwork/lipids. ASSESSMENT Diagnoses and all orders for this visit: 1. Benign hypertension (Primary) 2. Recurrent falls 3. Dyslipidemia - POCT lipid panel 4. Coronary artery disease of [place] artery of [place] heart with stable angina pectoris ([facility]/HCC) 5. Statin intolerance 6. Bradycardia - [facility] Cardiac Telemetry Event Monitor; Future 7. Orthostatic hypotension 8. Anxiety 9. 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 Palpitations - [facility] Mobile Cardiac Telemetry Event Monitor; Future PLAN/RECOMMENDATIONS 1. Fairly stable without clear anginal sxs. Aggressive CAD risk modification counseling performed. Continue current medical therapy. Notify office immediately with anginal symptoms. 2. Lipids markedly elevated despite increase in Pravastatin to 80mg in which she tolerated 40mg dose without issue and an LDL of 149 03/2016. Lipids remain very high on check in office. PCSK9 inhibitor for intolerance to statins and poor control. Resume Pravastatin 40mg qhs if able to tolerate. 3. Clarify with Pharmacy if med sent is truly Pravastatin prescribed or a pharmacy error EVY. Communicate regarding Pharmacy review. Hold PRavastatin. 4. Repeat fasting lipid panel. Will check in office today. 5. BP reasonably controlled. Monitor BP on routine basis. Call with readings. Continue consistent cardiovascular exercise, weight loss, medication compliance, and low-sodium diet. 6. Hold Atenolol given symptomatic bradycardia. She notes palpitations as well at times still. 7. Lifestyle modification counseling performed. Weight loss, exercise, reduction in caloric intake. 8. 7 day telemetry patch monitor for bradycardia and palpitations. Over 50% of this visit counseling CAD, HTN, lipids, medications, lifestyle modification. Follow up in the office in 3 months. Thank you for allowing me the privilege of participating in the care this very pleasant patient. Please do not hesitate to contact me with any additional questions or concerns. Sonia Mclean MD, [facility] documented in this encounter Plan of Treatment Not on file documented as of this encounter Procedures Procedure Name Priority Date/Time Associated Diagnosis Comments POCT LIPID PANEL Routine 02/06/2017 12:5 9 PM CDT Dyslipidemia LIPID PANEL Routine 11/21/2016 9:58 AM CDT documented in this encounter Results * POCT lipid panel (02/06/2017 12:59 PM CDT) Pathologist [facility] Cholesterol, POC 292 mg/dL HDL, POC 54 mg/dL Triglycerides, POC 152 mg/dL LDL Cholesterol POC 208 mg/dL Cholesterol Total, POC 292 mg/dL Blood specimen (specimen) 02/06/2017 12:59 PM CDT Ravinder Mclean MD POINT OF CARE TEST ORDER MALOU Final Result * Lipid panel (11/21/2016 9:58 AM CDT) SCRIBED Cholesterol, Total 329 na - na EXTERNAL LAB SCRIBED HDL 42 na - na EXTERNAL LAB SCRIBED LDL 250 na - na EXTERNAL LAB SCRIBED Triglycerides 183 na - na EXTERNAL LAB Blood specimen (specimen) us Historical Provider LAB BLOOD ORDERABLES Deyanira radhika Result EXTERNAL LAB documented in this encounter Visit Diagnoses Diagnosis Benign hypertension- Primary Essential hypertension, benign Recurrent falls Dyslipidemia Other and unspecified hyperlipidemia Coronary artery disease of [place] artery of [place] heart with stable angina pectoris (HCC) Statin intolerance Bradycardia Other specified cardiac dysrhythmias Orthostatic hypotension Anxiety Anxiety state, unspecified Deep vein thrombosis (DVT) of left upper extremity, unspecified chronicity, unspecified vein (HCC) residential current use of anticoagulant therapy Palpitations documented in this encounter Discontinued Medications Medication Sig Discontinue Reason Start Date End Da te pravastatin (PRAVACHOL) 80 mg tablet take 1 tablet by oral route every day Reorder 02/16/2016 02/06/2017 documented as of this encounter Historical Medications * This list may reflect changes made after this encounter. escitalopram (LEXAPRO) 5 mg tablet Take 5 mg by mouth daily. 03/20/2021 HYDROcodone-aceta minophen (NORCO) 5-325 mg per tabletIndications :Pain Take 1 tablet by mouth every 6 (six) hours as needed. 03/19/2017 added in this encounter Care Teams Machine Filler Relationship Specialty Start Date End Date Sixto Lund MD PCP - General 09/21/16 05/01/22 documented as of this encounter
--- OUTSIDE RECORDS SUMMARY | 2024-06-08 20:55 | XMS_ITS | Encounter Summary ---
Author Organization [facility] Medical Group Address [address] [place] [address] Care Team Providers Care Senior Gl Accountant Name Role Phone Sixto Terrazas MD Primary Care Provider [phone] Reason for Visit * Reason Comments Follow-up 4 mo follow up on CA D, DVT, dyslipidemia, HTN, ni, palps Encounter Details Date Type Department Care Team (Late st Contact Info) Description 02/10/2019 9:15 AM CDT Office Visit [facility] [address] [facility] [address] [place] [address] Ravinder Mclean MD [address] [facility] [address] [place], [place] [id number] Coronary artery disease involving yuhaaviatam coronary artery of yuhaaviatam heart without angina pectoris (Primary Dx); Labile hypertension; Dyslipidemia; PAD (peripheral artery disease) (CMS/HCC); PVC (premature ventricular contraction); Statin intolerance; 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 (CMS/HCC); Chronic anticoagulation; History of fall; Other chest pain Social History Tobacco Use Types Packs/Day Years Used Date Smoking Tobacco: Never Smokeless Tobacco: Never Alcohol Use Standard Drinks/Week Comments Yes 0 (1 standard drink = 0.6 oz pur e alcohol) Comments Unknown Sex and Gender Information Value Date Recorded Sex Assigned at Not on file 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 Sex 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 Gender Identity Not on file Sexual Orientation Not on file documented as of this encounter Last Filed Vital Signs Vital Sign Reading Time Taken Comments Blood Pressure 136/70 02/10/2019 9:05 AM CDT Pulse 79 02/10/2019 9:05 AM CDT Temperature - - Respiratory Rate - - Oxygen Saturation 93% 02/10/2019 9:05 AM CDT Inhaled Oxygen Concentration - - Weight 72.6 kg (160 lb) 02/10/2019 9:05 AM CDT Height 165.1 cm (5' 5 ) 02/10/2019 9:05 AM CDT Body Mass Index 26.63 02/10/2019 9:05 AM CDT documented in this encounter Ordered Prescriptions Prescription Sig Dispense Quantity Refills Last Filled Start Date End Date rosuvastatin (CRESTOR) 10 mg tablet Take 1 tablet (10 mg total) by mouth daily 30 tablet 11 02/10/2019 05/28/2019 documented in this encounter Progress Notes * Ravinder Mclean MD - 02/10/2019 9:15 AM CDT [facility] DATE OF VISIT: 02/10/2019 CHIEF COMPLAINT Chief Complaint Patient presents with ??? Follow-up 4 mo follow up on CAD, DVT, dyslipidemia, HTN, ni, palps HPI Linda Garza is a 78 y.o. female with a PMHx of CAD LAD stent, h/o 80% RCA stenosis, HTN, dyslipidemia, chronic recurrent atypical CP, h/o LUE DVT on coumadin, chronic anxiety previously followed in [place]. 07/15/13 she returns today stating she has [...] noted in the 40's so sent to [place] ER by Dr. Terrazas EKG done HR [...] nearly completely resolved seeing Vascular surgery in [place] and is feeling better overall. She is [...] that is why she followed me from [place] and still chooses to see me and [...] pain. Going to see Vascular surgeon in [place] very soon and having vascular studies at [...] under significant stress Still seeing vascular in [place], wrapping legs, gets occ swelling. Still has [...] Denies any CP or new SOB otherwise. MEDICAL HISTORY Past Medical History: Diagnosis Date [...] mg capsule clopidogrel (PLAVIX) 75 mg tablet escitalopram (LEXAPRO) 5 mg tablet hydroCHLOROthiazide (HYDRODIURIL) 25 mg tablet nitroglycerin (NITROSTAT) 0.4 mg SL tablet rosuvastatin (CRESTOR) 10 mg tablet warfarin (COUMADIN) 3 mg tablet rosuvastatin (CRESTOR) 10 mg tablet ALLERGIES Allergies Allergen Reactions ??? Akulnao-Dpy-Fnz Reductase Inhibitors Muscle pain ??? Prednisone ??? [...] for environmental allergies. PHYSICAL EXAM Vitals BP 136/70 (BP Location: Right arm, Patient Position: Sitting) Pulse 79 Ht 165.1 cm (5' 5 ) Wt 72.6 kg (160 lb) SpO2 93% BMI 26.63 kg/m?? Weight: 72.6 kg (160 lb) Height: 165.1 cm (5' 5 ) Body mass index is 26.63 kg/m??. Physical Exam Constitutional: She is oriented [...] AND OTHER DIAGNOSTIC TESTS Office Visit on 02/10/2019 Component Date Value [...] for this visit: Coronary artery disease involving yuhaaviatam coronary artery of yuhaaviatam heart without angina pectoris (Primary) Labile hypertension Dyslipidemia - POCT lipid panel PAD (peripheral artery disease) (CMS/HCC) PVC (premature ventricular contraction) Statin intolerance 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 (CMS/HCC) Chronic anticoagulation History of fall Other chest pain - XR Chest Pa Lateral 2 Views; Future Other orders - rosuvastatin (CRESTOR) 10 mg tablet; Take 1 tablet (10 mg total) by mouth daily PLAN/RECOMMENDATIONS 1. No clear anginal symptoms although [...] reviewed LDL 120 02/10/19, not ideally controlled. 3. Monitor for bleeding very closely. If [...] and monitor INR more frequently. 8. Check CXR given persistent CP and pt concerns. Unclear etiology although suspect musculoskeletaletiology at this time. 9. PCP managing INR. Monitor for bleeding. [...] additional questions or concerns. Sonia Mclean MD, [facility] documented in this encounter Plan of Treatment Not on file documented as of this encounter Procedures Procedure Name Priority Date/Time Associated Diagnosis Comments POCT LIPID PANEL Routine 02/10/2019 9:58 AM CDT Dyslipidemia documented in this encounter Results * POCT lipid panel (02/10/2019 9:58 AM CDT) Cholesterol, POC 196 mg/dL HDL, POC 39 mg/dL Triglycerides, POC 185 mg/dL LDL Cholesterol POC 120 mg/dL Chol/HDL Ratio, POC 5.0 Non-HDL Cholesterol, POC 157 mg/dL Cholesterol Total, POC 196 mg/dL Blood specimen (specimen) 02/10/2019 9:58 AM CDT Ravinder Mclean MD POINT OF CARE TEST ORDER MALOU Final Result documented in this encounter Visit Diagnoses Diagnosis Coronary artery disease involving yuhaaviatam coronary artery of yuhaaviatam heart without angina pectoris- Primary Labile hypertension Dyslipidemia Other and unspecified hyperlipidemia PAD (peripheral artery disease) (HCC) Unspecified peripheral vascular disease PVC (premature ventricular contraction) Other premature beats Statin intolerance 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 (HCC) Chronic anticoagulation Encounter for long-term (current) use of anticoagulants History of fall Personal history of fall Other chest pain documented in this encounter Discontinued Medications Medication Sig Discontinue Reason Start Date End Da te rosuvastatin (CRESTOR) 10 mg tablet Take 1 tablet (10 mg total) by mouth daily. Reorder 02/17/2018 02/10/2019 documented as of this encounter Historical Medications * This list may reflect changes made after this encounter. clopidogrel (PLAVIX) 75 mg tablet Take 75 mg by mouth daily 12/24/2019 added in this encounter Care Teams Senior Gl Accountant Relationship Specialty Start Date End Date Sixto Terrazas MD PCP - General 09/21/16 05/01/22 documented as of this encounter
--- OUTSIDE RECORDS SUMMARY | 2024-06-08 20:55 | XMS_ITS | Encounter Summary ---
Author Organization [facility] Medical Group Address [address] [place] [address] [place] [address] Care Team Providers Care Soap Worker Name Role Phone Sixto Lund MD Primary Care Provider [phone] Encounter Details Date Type Department Care Team (Late st Contact Info) Description 08/18/2018 Telephone [facility] [address] [facility] [address], [place] [address] Ravinder Mclean MD [address] [place] [address] [address] [place] [address] Social History Tobacco Use Types Packs/Day Years Used Date Smoking Tobacco: Never Smokeless Tobacco: Never Alcohol Use Standard Drinks/Week Comments Yes 0 (1 standard drink = 0.6 oz pur e alcohol) Comments Unknown Sex and Gender Information Value Date Recorded Sex Assigned at Not on file Legal Sex 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 ----- Message from Ravinder Mclean MD sent at 08/18/2018 1:06 PM DIVINE HEALER ----- Stress test normal, no ischemia. Looks good. Call with new sxs or concerns. NE HEALER NE HEALER documented in this encounter Plan of Treatment Not on file documented as of this encounter Visit Diagnoses Not on filedocumented in this encounter Care Teams Soap Worker Relationship Specialty Start Date End Date Sixto Lund MD PCP - General 09/21/16 05/01/22 documented as of this encounter
--- OUTSIDE RECORDS SUMMARY | 2024-06-08 20:55 | XMS_ITS | Encounter Summary ---
Author Organization [facility] Medical Group Address [address] [facility] [address] [place] [address] Care Team Providers Care Plastic Die Maker Apprentice Name Role Phone Sixto Lund MD Primary Care Provider [phone] Encounter Details Date Type Department Care Team (Late st Contact Info) Description 08/08/2017 Orders Only [facility] [address] [facility] [address] [place] [address] ProviderArmani MD [facility] [place] [address] Social History Tobacco Use Types Packs/Day Years Used Date Smoking Tobacco: Never Smokeless Tobacco: Never Alcohol Use Standard Drinks/Week Comments Yes 0 (1 standard drink = 0.6 oz pur e alcohol) Comments Unknown Sex and Gender Information Value Date Recorded Sex Assigned at Not on file Legal Sex 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 Gender Identity Not on file Sexual Orientation Not on file documented as of this encounter Plan of Treatment Not on file documented as of this encounter Procedures Procedure Name Priority Date/Time Associated Diagnosis Comments LIPID PANEL Routine 08/08/2017 9:10 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 documented in this encounter Results * (ABNORMAL) Lipid panel (08/08/2017 9:10 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) SCRIBED Cholesterol, Total 363(A) 0 - 200 EXTERNAL LAB SCRIBED HDL 53 35 - 96 EXTERNAL LAB SCRIBED LDL 291(A) 0 - 130 EXTERNAL LAB SCRIBED Triglycerides 95 0 - 150 EXTERNAL LAB Blood specimen (specimen) Historical Provider LAB BLOOD ORDERABLES Edit ed Result - Final EXTERNAL LAB documented in this encounter Visit Diagnoses Not on filedocumented in this encounter Care Teams Plastic Die Maker Apprentice Relationship Specialty Start Date End Date Sixto Lund MD PCP - General 09/21/16 05/01/22 documented as of this encounter
--- OUTSIDE RECORDS SUMMARY | 2024-06-08 20:55 | XMS_ITS | Encounter Summary ---
Author Organization [facility] Medical Group Address [address] [facility] [address] [place] [address] Care Team Providers Care Sports Medicine Coordinator Name Role Phone Sixto Lund MD Primary Care Provider [phone] Encounter Details Date Type Department Care Team (Late st Contact Info) Description 10/01/2017 Telephone [facility] [address] [facility] [address] [place] [address] Ravinder Mclean MD [address] [facility] [address] [place] [address] Social History Tobacco Use Types Packs/Day Years Used Date Smoking Tobacco: Never Smokeless Tobacco: Never Alcohol Use Standard Drinks/Week Comments Yes 0 (1 standard drink = 0.6 oz pur e alcohol) Comments Unknown Sex and Gender Information Value Date Recorded Sex Assigned at Not on file 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 * Telephone Encounter - Ariela Hope MA - 10/01/2017 10:00 AM CDT Please call patient back with her BMP results from [place]. They were drawn on Sat 4.7.18 documented in this encounter Plan of Treatment Not on file documented as of this encounter Visit Diagnoses Not on filedocumented in this encounter Care Teams Sports Medicine Coordinator Relationship Specialty Start Date End Date Sixto Lund MD PCP - General 09/21/16 05/01/22 documented as of this encounter
--- OUTSIDE RECORDS SUMMARY | 2024-06-08 20:55 | XMS_ITS | Encounter Summary ---
Author Organization [facility] Medical Group Address [address] [facility] [address] [place] [address] Care Team Providers Care Inspector Boiler Name Role Phone Sixto Lund MD Primary Care Provider [phone] Encounter Details Date Type Department Care Team (Late st Contact Info) Description 03/14/2017 Telephone [facility] [address] [facility] [address], [place] [id number] [place] [address] [place] [address] [address] [place] [address] Social History Tobacco Use Types Packs/Day Years Used Date Smoking Tobacco: Never Smokeless Tobacco: Never Alcohol Use Standard Drinks/Week Comments Yes 0 (1 standard drink = 0.6 oz pur e alcohol) Comments Unknown Sex and Gender Information Value Date Recorded Sex Assigned at Not on file 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 I called the patient with the results of her heart monitor with her. Isolated PVC's noted. But no abnormal rhythms. Patient is c/o feeling dizzy, wore out, fatigued, and short of breath. Last night she got up to go to the bathroom and fell. BP was 105/52 HR 52. Priorto the fall she was at [facility] and had to leave because she was so exhausted. She says this isn't like her. She denies edema. appt made for her to see RASHAD Mackay next week Saturday in the [facility]. Will forward to RASHAD Mackay for review and fyi. Patient is currently not on any betablockers (stopped her atenolol in january). * Telephone Encounter - An Whitman RN - 03/14/2017 3:19 PM CDT I called the patient back. The strips were all scanned into [employer] but no dictated report. Will checkwith Aleah Champion to see if she can access it. I am currently unable to locate it in the carbon grinder folder. documented in this encounter Plan of Treatment Not on file documented as of this encounter Visit Diagnoses Not on filedocumented in this encounter Care Teams Inspector Boiler Relationship Specialty Start Date End Date Sixto Lund MD PCP - General 09/21/16 05/01/22 documented as of this encounter
--- OUTSIDE RECORDS SUMMARY | 2024-06-08 20:56 | XMS_ITS | Encounter Summary ---
Author Organization [facility] Healthcare Address [address] [place] [address] Care Team Providers Care Sales/Marketing Name Role Phone Sixto Lund MD Primary Care Provider [phone] Encounter Details Date Type Department Care Team (Late st Contact Info) Description 04/12/2010 12:01 AM CDT - 04/12/2010 11:59 PM CDT Hospital Encounter [facility] Sarah Coleman MD [address] [place] [address] Benign neoplasm of colon; Diverticulosis of colon; Internal hemorrhoids; Heartburn; Dysphagia; Disturbance of salivary secretion; Essential hypertension; Coronary atherosclerosis; Postsurgical percutaneous transluminal coronary angioplasty status; Panic disorder without agoraphobia Social History Tobacco Use Types Packs/Day Years Used Date Smoking Tobacco: Never Assessed Comments Unknown Sex and Gender Information Value Date Recorded Sex Assigned at Not on file 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 Admit Date: 04/12/2010 Dict.: Sarah López M.D. Disch. Date: NAME OF PROCEDURE: Colonoscopy with biopsy. INDICATIONS Irregular bowel movements and abdominal pain. Family history of colon cancer. DATE OF PROCEDURE 04/12/[address] Lund BRIEF HISTORY AND PHYSICAL The patient is a pleasant 69-year-old white female with a long history of irregular bowel movements and diarrhea and abdominal pain. The last colonoscopy was more than 10 years ago. Mother had a history of colon cancer. PROCEDURE Sedation was provided by anesthesia service. The procedure of colonoscopy, including indications and possible complications of bleeding, infection, perforation requiring surgery were discussed with the patient and consent was obtained. Rectal examination prior to colonoscopy was remarkable. The scope was introduced in the rectum and advanced all the way to the cecum which was identified by the ileocecal valve and the appendiceal orifice. The terminal ileum was intubated and appeared normal. The cecum, ascending colon, transverse colon were unremarkable. Diverticulosis was noted in the sigmoid colon and descending colon. There was one small 3 mm polyp in the sigmoid colon removed by cold biopsy forceps. Random colon biopsy was performed to rule out microscopic colitis. The rectum was unremarkable. Retroflexion in the rectum showed small internal hemorrhoids. DIAGNOSES: 1. Diverticulosis of the sigmoid colon. 2. Small 3 mm polyp in the sigmoid colon removed by cold biopsy forceps. 3. Small internal hemorrhoids. RECOMMENDATIONS: 1. Follow pathology report. 2. Followup in my office as scheduled for further evaluation. Sarah López M.D. BILLIE/diane TD: 04/13/2010 11:27 CC: Dr. Lund PROCEDURE REPORT Authenticated by Sarah López MD On 04/16/2010 12:03:34 PM documented in this encounter Plan of Treatment Not on file documented as of this encounter Procedures Procedure Name Priority Date/Time Associated Diagnosis Comments COLONOSCOPY 04/12/2010 12:00 AM CDT documented in this encounter Results * COLONOSCOPY (04/12/2010 12:00 AM CDT) Anatomical Region Laterality Modality Other Narrative 04/12/2010 12:00 AM CDT Ordered by an unspecified provider. Procedure Note Provider, MD Armani - 04/12/2010 12:00 AM CDT PROCEDURE REPORT Patient: LINDA GARZA Account: [id number] Room No: : 1940 Patient Type: [facility] Attend.: Sarah López M.D. Admit Date: 04/12/2010 Dict.: Sarah López M.D. Disch. Date: NAME OF PROCEDURE: Colonoscopy with biopsy. INDICATIONS Irregular bowel movements and abdominal pain. Family history of coloncancer. DATE OF PROCEDURE 04/12/[address] Lund BRIEF HISTORY AND PHYSICAL The patient is a pleasant 69-year-old white female with a long historyof irregular bowel movements and diarrhea and abdominal pain. The last colonoscopy was more than 10 years ago. Mother had a history of coloncancer. PROCEDURE Sedation was provided by anesthesia service. The procedure ofcolonoscopy, including indications and possible complications of bleeding, infection, perforation requiring surgery were discussed with the patient and consentwas obtained. Rectal examination prior to colonoscopy was remarkable. Thescope was introduced in the rectum and advanced all the way to the cecum whichwas identified by the ileocecal valve and the appendiceal orifice. Theterminal ileum was intubated and appeared normal. The cecum, ascending colon, transverse colon were unremarkable. Diverticulosis was noted in thesigmoid colon and descending colon. There was one small 3 mm polyp in thesigmoid colon removed by cold biopsy forceps. Random colon biopsy was performedto rule out microscopic colitis. The rectum was unremarkable. Retroflexionin the rectum showed small internal hemorrhoids. DIAGNOSES: 1. Diverticulosis of the sigmoid colon. 2. Small 3 mm polyp in the sigmoid colon removed by cold biopsyforceps. 3. Small internal hemorrhoids. RECOMMENDATIONS: 1. Follow pathology report. 2. Followup in my office as scheduled for further evaluation. Emily Martínez/diane TD: 04/13/2010 11:27 CC: Dr. Lund PROCEDURE REPORT Authenticated by Sarah López MD On 04/16/2010 12:03:34 PM us Historical Provider ENDOSCOPY PROCEDURES Deyanira l Result documented in this encounter Visit Diagnoses Diagnosis Benign neoplasm of colon Diverticulosis of colon Diverticulosis of colon (without mention of hemorrhage) Internal hemorrhoids Internal hemorrhoids without mention of complication Heartburn Dysphagia Disturbance of salivary secretion Essential hypertension Unspecified essential hypertension Coronary atherosclerosis Coronary atherosclerosis of unspecified type of vessel, [place] or graft Postsurgical percutaneous transluminal coronary angioplasty status Panic disorder without agoraphobia documented in this encounter Care Teams Sales/Marketing Relationship Specialty Start Date End Date Sixto Lund MD PCP - General 09/06/09 12/06/10 documented as of this encounter
--- OUTSIDE RECORDS SUMMARY | 2024-06-08 20:56 | XMS_ITS | Encounter Summary ---
Author Organization [facility] Healthcare Address [address] [place] [address] Care Team Providers Care Copyright Expert Name Role Phone Sixto Lund MD Primary Care Provider [phone] Encounter Details Date Type Department Care Team (Late st Contact Info) Description 12/28/2010 1:07 PM CDT - 01/21/2011 11:59 PM CDT Hospital Encounter [facility] Everett Bello, DO [address] [place] [address] Edema Social History Tobacco Use Types Packs/Day Years Used Date Smoking Tobacco: Never Assessed Comments Unknown Sex and Gender Information Value Date Recorded Sex Assigned at Not on file Legal Sex 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 PICKER Gender Identity Not on file Sexual Orientation Not on file documented as of this encounter Plan of Treatment Not on file documented as of this encounter Visit Diagnoses Diagnosis Edema documented in this encounter Care Teams Copyright Expert Relationship Specialty Start Date End Date Sixto Lund MD PCP - General 12/07/10 10/21/12 documented as of this encounter
--- OUTSIDE RECORDS SUMMARY | 2024-06-08 20:56 | XMS_ITS | Encounter Summary ---
Author Organization [facility] Healthcare Address [address] [place] [address] Care Team Providers Care Cashier General Name Role Phone Unavailable Primary Care Provider Unavailabl e Encounter Details Date Type Department Care Team (Latest Contact Info) Description 07/19/2009 10:34 PM OPENER TENDER - 07/21/2009 2:37 PM OPENER TENDER Hospital Encounter [facility] CLINT[facility] Black MD [address] [address] Coronary atherosclerosis of [place] coronary artery; Essential hypertension; Other and unspecified hyperlipidemia; Dysthymic disorder; Personal history of poliomyelitis Social History Tobacco Use Types Packs/Day Years Used Date Smoking Tobacco: Never Assessed Comments Unknown Sex and Gender Information Value Date Recorded Sex Assigned at Not on file Legal Sex 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 OPENER TENDER Gender Identity Not on file Sexual Orientation Not on file documented as of this encounter Plan of Treatment Not on file documented as of this encounter Visit Diagnoses Diagnosis Coronary atherosclerosis of [place] coronary artery Essential hypertension Unspecified essential hypertension Other and unspecified hyperlipidemia Dysthymic disorder Personal history of poliomyelitis documented in this encounter
--- OUTSIDE RECORDS SUMMARY | 2024-06-08 21:00 | XMS_ITS | Clinical Summary ---
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 Name Role Phone SUKHI FRANKEL Unavailable Unavailable SAMIR PHYSICAL THERAPIST, FRANK Unavailabl e Unavailable MICHAEL DIRECTOR MICROBIOLOGY, MATHEUS Unavail able Unavailable COURTNEY MEEHANWOOD SCIENCE PROFESSOR, JUHI Unavailable Unavailable Payers Payer Name Policy Type Policy Number Effective Date Expira tion Date MEDICARE [employer] - EPISODIC [id number] Problems Condition Name Condition Details Condition Category Status Onset Date Resolution Date Last Treatment Date Treating Clinician Comments POSTPOLIO SYNDROME Active 09-07 00:00: 00 ESSENTIAL (PRIMARY) HYPERTENSION Active 09-07 00:00: 00 ATHSCL HEART DISEASE OF [place] CORONARY ARTERY W/O ANG PCTRS Active 09-07 [...] URINARY (TRACT) INFECTIONS Active 09-07 00:00: 00 CUSTODIAL (CURRENT) USE OF ASPIRIN Active 09-07 00:00: 00 ENCOUNTER FOR THERAPEUTIC DRUG LEVEL MONITORING Active 09-07 00:00: 00 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 TS Active 09-07 [...] 01-26 00:00: 00 09-05 23:59 :00 No [id number] ANXIETY 1 tablet TWO TIMES A DAY PRN 1 tablet TWO TIMES A DAY PRN (route: oral) Med Classific ation: Central Nervous System Agents Aspirin Childrens 81 mg chewable tablet 01-26 00:00: 00 09-05 23:59 :00 No [id number] CLOT PREVENTION 1 tablet ONCE DAILY 1 tablet ONCE DAILY (route: oral) Med Classific ation: Hematolog ical Agents benazepril 10 mg tablet 01-26 00:00: 00 09-05 23:59 :00 No [id number] HIGH BLOOD PRESSURE 1 tablet ONCE DAILY 1 tablet ONCE DAILY (route: oral) Med Classific ation: Cardiovas cular Therapy Agents furosemide 20 mg tablet 01-26 00:00: 00 09-05 23:59 :00 No [id number] FLUID RETENTION 1 tablet ONCE DAILY 1 tablet ONCE DAILY (route: oral) Med Classific ation: Cardiovas cular Therapy Agents rosuvastati n 10 mg tablet 01-26 00:00: 00 09-05 23:59 :00 No [id number] HIGH CHOLESTEROL 1 tablet AT BEDTIME 1 tablet AT BEDTIME (route: oral) Med Classific ation: Cardiovas cular Therapy Agents warfarin 3 mg tablet 01-26 00:00: 00 09-05 23:59 :00 No [id number] CLOT PREVENTION 1 tablet ONCE DAILY 1 tablet ONCE DAILY (route: oral) Med Classific ation: Hematolog ical Agents alprazolam 1 mg tablet 09-07 00:00: 00 Yes [id number] ANXIETY 1 tablet TWICE DAILY 1 tablet TWICE DAILY (route: oral) Med Classific ation: Central Nervous System Agents Aspirin Childrens 81 mg chewable tablet 09-07 00:00: 00 Yes [id number] CORONARY ARTERY DISEASE 1 tablet ONCE DAILY 1 tablet ONCE DAILY (route: oral) Med Classific ation: Hematolog ical Agents benazepril 10 mg tablet 09-07 00:00: 00 Yes [id number] HYPERTENSIO N 1 tablet ONCE DAILY 1 tablet ONCE DAILY (route: oral) Med Classific ation: Cardiovas cular Therapy Agents Crestor 10 mg tablet 09-07 00:00: 00 Yes [id number] HIGH CHOLESTEROL 1 tablet ONCE DAILY 1 tablet ONCE DAILY (route: oral) Med Classific ation: Cardiovas cular Therapy Agents fluconazole 100 mg tablet 09-07 00:00: 00 09-13 23:59 :00 No [id number] THRUSH 1 tablet DIRECTED 1 tablet DIRECTED (route: oral) Med Classific ation: Anti-Infe ctive Agents furosemide 20 mg tablet 09-07 00:00: 00 Yes [id number] FLUID RETENTION 1 tablet ONCE DAILY 1 tablet ONCE DAILY (route: oral) Med Classific ation: Cardiovas cular Therapy Agents warfarin 3 mg tablet 09-07 00:00: 00 Yes [id number] BLOOD CLOT PREVENTION 1 tablet ONCE DAILY 1 tablet ONCE DAILY (route: oral) Med Classific ation: Hematolog ical Agents levofloxaci n 250 mg tablet 10-13 00:00: 00 10-22 23:59 :00 No [id number] URINARY TRACT INFECTION 1 tablet ONCE DAILY [...] FOR POTENTIAL MEDICATION CHANGES AND/OR REFERRAL TO 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 Goal [...] AND BED MOBILITY TO ACHIEVE THERAPY SHORT TERM/CUSTODIAL GOALS BELOW. PATIENT WILL DEMONSTRATE IMPROVED SAFETY AND ABILITY WITH GAIT, BALANCE, AND FUNCTIONAL ACTIVITIES TO ACHIEVE THERAPY SHORT TERM/NATURAL GAS PLANT TECHNICIAN GOALS BELOW. PATIENT WILL RETURN DEMONSTRATE ACCURATE EXECUTION OF ESTABLISHED HOME EXERCISE PROGRAM. PATIENT WILL REMAIN SAFE AND RECEIVE CARE AT HOME. PATIENT/CAREGIVER WILL VERBALIZE UNDERSTANDING OF DEPRESSION MANAGEMENT TECHNIQUES INCLUDING MEDICATION COMPLIANCE AND MENTAL STIMULATION AND ENGAGEMENT. Reason for Visit INDEPENDENT IN THE COMMUNITY Encounters Start Date/Time End Date/Time Encounter Type Admission Type Attending [facility] Care Department Encounter ID Discharge Date Discharge Status Discharge Condition Discharge Reason Percent Goals Met 2021-09-07 00:00:00 2021-11-01 00:00:00 Outpatient [facility] [id number] 00:00:00 DISCHARGE TO HOME OR SELF CARE INDEPENDEN T IN THE COMMUNITY GOALS MET 100.00
[2024-06-09 04:14] LABS: Vitamin D 25 Hydroxy 44 ng/mL (30-100)
== END 2024-06-05 14:27 | disposition home or self-care (01) ==
LOC: CHSLAB 14:28
PROVIDERS: PCP Nurse Practitioner Family; Visit Provider Nurse Practitioner Family
DX: R39.9 Unspecified symptoms and signs involving the genitourinary system (principal); E87.1 Hypo-osmolality and hyponatremia; G47.00 Insomnia, unspecified; G25.81 Restless legs syndrome; M81.0 Age-related osteoporosis without current pathological fracture
CPT/HCPCS: 36415; 80053; 81001; 82306; 83735; 87086; 87088

== ENCOUNTER 2024-07-24 12:17 | Outpatient (CLI) | payer MEDICARE, SELFPAY ==
[2024-07-24 12:56] LABS: Alanine Aminotransferase 22 U/L (14-59); Albumin Level 3.7 g/dL (3.4-5.0); Alkaline Phosphatase 94 U/L (46-116); Anion Gap 10 mmol/L (4-12); Aspartate Amino Transferase 11 U/L (15-37); Bilirubin,Total 0.5 mg/dL (0.00-1.00); Blood Urea Nitrogen 15 mg/dL (7-18); Carbon Dioxide 26 mmol/L (21-32); Chloride 102 mmol/L (98-108); Estimated Glomerular Filt Rate > 60; Glucose 104 mg/dL (70-99); Magnesium 1.8 mg/dL (1.8-2.4); Osmolality Calculated 286 mOsm/kg (285-295); Potassium 4.5 mmol/L (3.5-5.1); Sodium 138 mmol/L (136-145); Total Protein 6.6 g/dL (6.4-8.2)
[2024-07-24 13:21] LABS: Add Urine Microscopic? YES; Appearance Urine Cloudy (Clear); Bilirubin Urine Negative (Negative); Blood Urine Negative (Negative); Color Urine Light Yellow (Yellow); Glucose Urine UA Negative (Negative); Ketones Urine Negative (Negative); Leukocyte Esterase Ur 2+ LEU/UL (Negative); Nitrate Urine Positive (Negative); Protein Urine Negative (Negative); Specific Grav Ur 1.025 (1.010-1.020); Urobilinogen Urine 0.2 mg/dL (0.2-1.0); pH Urine 5.5 (5.0-8.0)
[2024-07-24 13:50] LABS: Bacteria Urine 2+ /hpf; RBC Urine None seen /hpf (0-2); Squamous Epithelial Cell Urine Few /hpf (Few); WBC Urine 21-30 /hpf (0-3)
[2024-07-28 01:53] LABS: Vitamin D 25 Hydroxy 39 ng/mL (30-100)
== END 2024-07-24 12:18 | disposition home or self-care (01) ==
LOC: CHSLAB 12:25
PROVIDERS: PCP Nurse Practitioner Family; Visit Provider Nurse Practitioner Family
DX: M25.50 Pain in unspecified joint (principal); R53.1 Weakness; G25.81 Restless legs syndrome; E87.1 Hypo-osmolality and hyponatremia; N39.0 Urinary tract infection, site not specified; M81.0 Age-related osteoporosis without current pathological fracture
CPT/HCPCS: 36415; 80053; 81001; 82306; 83735; 87086; 87186

== ENCOUNTER 2024-09-03 09:00 | Outpatient (RCR) | payer MEDICARE, SELFPAY ==
--- NOTE | 2024-09-03 10:15 | OPREHPOC ---
Outpatient Therapy Plan of Care This is a Multidisciplinary Plan of Care that may contain components documented by all disciplines (PT, OT, and ST.) PT Problem 1 PT Problem #1 Knowledge Deficit PT Goal 1 Goal / Goal Update 1. independent and compliant with HEP Target Visit 5 PT Goal 1 Goal / Goal Update 1. patient to report reduction of tingling sensation in bilateral UE's by 50% or better Target Visit 10 PT Problem 3 PT Problem #3 Impaired Strength PT Goal 1 Goal / Goal Update 1. 5/5 L elbow extension 2. 5/5 L wrist extension Target Visit 10 PT Problem 4 PT Problem #4 Impaired Range of Motion PT Goal 1 Goal / Goal Update 1. improve bilateral active wrist flexion to 60 degrees or better 2. improve bilateral active cervical rotation to 75 degrees or better Target Visit 10 PT Problem 5 PT Problem #5 Impaired Functional Mobility PT Goal 1 Goal / Goal Update 1. patient to display improved architect naval strength bilaterally to 45lbs or better 2. patient to report no dropping any items from the hands in the last 2 weeks 3. patient to display negative finkelsteins test of the L wrist Target Visit 10
--- NOTE | 2024-09-03 10:15 | PTOPEVAL1 ---
Assessment and note entered by JT File, PT Evaluation Information Assessment Status Evaluation Diagnosis bilateral hands ICD-10 Condition Codes (PT) Weakness R53.1 Other ICD-10 Condition Codes ( R29.898; G89.29 PT) Subjective Information patient reports she is coming to PT due to her hands not wanting to work for her anymore. she reports they hurt and her fingertips tingle. she reports all of her finger tips tingle, but especially her thumb on the L hand up to the wrist . she reports she wears a glove mostly on the L hand as the R hand works a little better for her. she reports she has been having these symptoms for several months. she reports she has had an xray of the hands. she reports as well as these symptoms in the hands, she has pain in the neck and down the L shoulder. she reports she uses biofreeze and voltaren gel frequently. she reports she does get some relief from the voltaren gel. she did recently have an infection of the ring finger of the R hand. she has been taking meds for this infection and it is improving, but she is unable to bend the finger. she reports it catches in the palm of the hand and she will have to pop it open. Reported Pain Level Pain Score 2,0,5: Self Report Assessment PT Clinical Summary mrs. roland is an 83 yo woman who presents to skilled PT services for evaluation and treatment of bilateral UE weakness, tingling, and functional deficits of holding and managing objects with hands. she presents today with signs and symptoms consistent with L carpal tunnel, L de quervain's, R trigger finger of the ring finger, and cervical radiculopathy. she presents with deficits in bilateral wrist rom, cervical rom, bilateral shoulder weakness, and L wrist and elbow strength. continued skilled PT is indicated to improve her objective/functional deficits and progress towards a return to her prior level functional activity performance/quality of life. Plan of Care Interventions Hot Pack/Cold Pack,Manual Therapy,Mechanical Traction,Neuro Re-education,Patient/Caregiver Education,Therapeutic Activities,Therapeutic Exercise PT Services Indicated Yes Treatment Frequency and 2x weekly for 10 visit Duration These treatments will address the objective and functional deficits as defined above. The patient will be advanced safely and appropriately in order for the patient to progress towards his/her prior level of function. Additional exercises will be introduced and as well as a comprehensive home exercise program upon discharge, if needed, ?to ensure carryover of functional gains achieved in the clinic. This treatment plan has been reviewed and agreement upon by the patient.
--- NOTE | 2024-09-09 09:49 | PCPTNOTE ---
Cancelled session. Reports she is in too much pain and does not want to do therapy anymore.
== END 2024-09-03 20:00 | disposition home or self-care (01) ==
LOC: CHSPT 09:00
PROVIDERS: PCP Nurse Practitioner Family; Visit Provider Nurse Practitioner Family
DX: R29.898 Other symptoms and signs involving the musculoskeletal system (principal); G89.29 Other chronic pain
CPT/HCPCS: 97110; 97161

== ENCOUNTER 2024-09-14 10:08 | Outpatient (CLI) | payer MEDICARE, SELFPAY ==
[2024-09-14 10:43] LABS: Add Urine Microscopic? NO; Appearance Urine Clear (Clear); Bilirubin Urine Negative (Negative); Blood Urine Negative (Negative); Color Urine Light Yellow (Yellow); Glucose Urine UA Negative (Negative); Ketones Urine Negative (Negative); Leukocyte Esterase Ur Negative LEU/UL (Negative); Nitrate Urine Negative (Negative); Protein Urine Negative (Negative); Urobilinogen Urine 0.2 mg/dL (0.2-1.0)
[2024-09-14 10:51] LABS: Hemoglobin A1C 5.8 % (<5.7)
[2024-09-14 11:27] LABS: Alanine Aminotransferase 17 U/L (14-59); Albumin Level 3.5 g/dL (3.4-5.0); Alkaline Phosphatase 92 U/L (46-116); Anion Gap 8 mmol/L (4-12); Aspartate Amino Transferase 14 U/L (15-37); Bilirubin,Total 0.5 mg/dL (0.00-1.00); Blood Urea Nitrogen 21 mg/dL (7-18); Carbon Dioxide 29 mmol/L (21-32); Chloride 104 mmol/L (98-108); Estimated Glomerular Filt Rate > 60; Glucose 94 mg/dL (70-99); Osmolality Calculated 295 mOsm/kg (285-295); Potassium 4.6 mmol/L (3.5-5.1); Sodium 141 mmol/L (136-145); Total Protein 6.7 g/dL (6.4-8.2)
--- OUTSIDE RECORDS SUMMARY | 2024-09-14 11:40 | XMS_ITS | Patient Health Record ---
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 Name Role Phone RALF LUA Unavailable [phone] Sixto Lund Unavailable Unavailable ORTIZ MAGUIRE Unavailable [phone] Allergies Allergen (clinical drug ingredient) Drug/Non Drug Allergy documented on EMR Reaction Allergy Type Onset Date Status predniSONE Unknown Drug Allergy 10/22/2012 activ e Reason For Referral No Information Medications Medication SIG (Take, Route, Frequency, Duration) Notes Start Date End Date Status Spironolactone 25 MG Oral Tablet ORAL spironolactone 25 MG Oral TabletOriginal Medicationspironolactone 25 MG Oral Tablet *Reorder from [employer] for eRx and Interaction Alerts* 3 Active Warfarin Sodium 2.5 MG Oral Tablet ORAL warfarin sodium 2.5 MG Oral TabletOriginal Medicationwarfarin sodium 2.5 MG Oral Tablet *Reorder from [employer] for eRx and Interaction Alerts* 3 Active Pravastatin Sodium 10 MG Oral Tablet ORAL pravastatin sodium 10 MG Oral TabletOriginal Medicationpravastatin sodium 10 MG Oral Tablet *Reorder from [employer] for eRx and Interaction Alerts* 3 Active acetaminophen 300 MG / hydrocodone bitartrate 5 MG Oral Tablet ORAL acetaminophen 300 MG / hydrocodone bitartrate 5 MG Oral TabletOriginal Medicationacetaminophen 300 MG / hydrocodone bitartrate 5 MG Oral Tablet *Reorder from [employer] for eRx and Interaction Alerts* 3 Active Oxybutynin Chloride 5 MG Oral Tablet ORAL oxybutynin chloride 5 MG Oral TabletOriginal Medicationoxybutynin chloride 5 MG Oral Tablet *Reorder from [employer] for eRx and Interaction Alerts* 3 Active Vital Signs Height-cm 165.10 cm 11/14/2023 Weight-kg 84.82 kg 11/14/2023 Height 65.00 in 11/14/2023 Weight 187 lbs 11/14/2023 BMI 31.12 kg/m2 11/14/2023 Encounters Encounter Location Date Provider Diagnosis [facility] [address] [place], [place] [id number] 11/14/2023 ORTIZ MAGUIRE Localized edema R60.0 ; 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 Educated patient on how a flexible flat foot deformity can in turn result in pathology such as hammer toe, bunions, equinus, neuromas. Recommend use of custom foot inserts to help alleviate plantar peak pressures and accomodate for digital deformity to feet. Continue with use of power step pinnacle inserts. Continue with use of epsom salt warm water soaks and ankle compression sleeve. 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 I educated the patient on icing and stretching, supportive shoegear, and the use of orthotic devices and bracing. 11/14/2023 Primary osteoarthritis , right ankle and foot (ICD-10 - M19.071) Arthritis, Osteo: I discussed anti-inflammatory treatment options and various means of immobilization with the patient. I educated the patient on icing and stretching, supportive shoegear, and the use of orthotic devices and bracing. Plan Of Treatment No Information Insurance Providers Payer Name Payer Address Payer Phone Subscriber Number Group Number Insured Name Patient Relationship to Insured Coverage Start Date Coverage End Date Medicare Part [place] [address] [place] [address] [id number] ENMA MATOS Self - patient is the insured [facility] ([facility]) ATTN CLAIMS [address] [place] [address] [id number] ENMA MATOS Self - patient is the insured [facility] [address] [place], [place] [phone] [id number] ENAM MATOS Self - patient is the insured
--- OUTSIDE RECORDS SUMMARY | 2024-09-14 11:40 | XMS_ITS ---
Author Organization [facility] Address [address] [place], [place] [id number] Care Team Providers Care Elevator Technician Name Role Phone RALF LAU Unavailable [phone] Sixto Lund Unavailable Unavailable ORTIZ MAGUIRE Unavailable [phone] REASON FOR VISIT R ft & ankle swollen Medications Medication SIG (Take, Route, Frequency, Duration) Notes Start Date End Date Status Oxybutynin Chloride 5 MG Oral Tablet ORAL oxybutynin chloride 5 MG Oral TabletOriginal Medicationoxybutynin chloride 5 MG Oral Tablet *Reorder from [facility] for eRx and Interaction Alerts* 3 Active Spironolactone 25 MG Oral Tablet ORAL spironolactone 25 MG Oral TabletOriginal Medicationspironolactone 25 MG Oral Tablet *Reorder from [facility] for eRx and Interaction Alerts* 3 Active Warfarin Sodium 2.5 MG Oral Tablet ORAL warfarin sodium 2.5 MG Oral TabletOriginal Medicationwarfarin sodium 2.5 MG Oral Tablet *Reorder from [facility] for eRx and Interaction Alerts* 3 Active Pravastatin Sodium 10 MG Oral Tablet ORAL pravastatin sodium 10 MG Oral TabletOriginal Medicationpravastatin sodium 10 MG Oral Tablet *Reorder from [facility] for eRx and Interaction Alerts* 3 Active acetaminophen 300 MG / hydrocodone bitartrate 5 MG Oral Tablet ORAL acetaminophen 300 MG / hydrocodone bitartrate 5 MG Oral TabletOriginal Medicationacetaminophen 300 MG / hydrocodone bitartrate 5 MG Oral Tablet *Reorder from [facility] for eRx and Interaction Alerts* 3 Active Vital Signs Height 65.00 in 06/27/2023 Weight 187 lbs 06/27/2023 BMI 31.12 kg/m2 06/27/2023 Height-cm 165.10 cm 06/27/2023 Weight-kg 84.82 kg 06/27/2023 Encounters Encounter Location Date Provider Diagnosis [facility] [place] [address] [place], [place] [id number] 06/27/2023 ORTIZ MAGUIRE Localized edema R60.0 ; Flat foot [pes planus] (acquired), right foot M21.41 ; Anterior tibial syndrome, 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 Educated patient on how a flexible flat foot deformity can in turn result in pathology such as hammer toe, bunions, equinus, neuromas. Recommend use of custom foot inserts to help alleviate plantar peak pressures and accomodate for digital deformity to feet. 06/27/2023 Anterior tibial syndrome, right leg (ICD-10 - M76.811) Tibialis Anterior Tendonitis: I discussed anti-inflammatory treatment options and various means of immobilization with the patient. I educated the patient on icing and stretching, supportive shoegear, and the use of orthotic devices and bracing. Soft cast applied at todays visit to right lower extremity with use of unna boot coban to aid in immobilization and compression across injury site. Instructed patient keep dressing clean dry and intact. 06/27/2023 Primary osteoarthritis , right ankle and foot (ICD-10 - M19.071) Arthritis, Osteo: I discussed anti-inflammatory treatment options and various means of immobilization with the patient. I educated the patient on icing and stretching, supportive shoegear, and the use of orthotic devices and bracing. Plan Of Treatment Treatment Notes Assessment Notes Flat foot [pes planus] (acqu ired), right foot Patient educated on etiology and treatme nt options for flexible flat foot deformity. Educated patient on how a flexible flat foot deformity can in turn result in pathology such as hammer toe, bunions, equinus, neuromas. Recommend use of custom foot inserts to help alleviate plantar peak pressures and accomodate for digital deformity to feet. Anterior tibial syndrome, right leg Tibialis Anterior Tendonitis: I discussed anti-inflammatory treatment options and various means of immobilization with the patient. I educated the patient on icing and stretching, supportive shoegear, and the use of orthotic devices and bracing. Soft cast applied at todays visit to right lower extremity with use of unna boot coban to aid in immobilization and compression across injury site. Instructed patient keep dressing clean dry and intact. Primary osteoarthritis, righ t ankle and foot Arthritis, Osteo: I discussed anti-inflammatory treatment options and various means of immobilization with the patient. I educated the patient on icing and stretching, supportive shoegear, and the use of orthotic devices and bracing. Next Appt Details Follow Up: 2 Weeks, Reason: Progress Notes * ENMA MATOS HDOB:1940 (82 yo F)Acc No.[id number]:06/27/2023 Patient: Kourtney AGUILARCOMPA ENMA H Provider: Brandon MAGUIRE :1940 A ge:82 Y S ex:Female Date:06/27/2023 Address:[address] [place], [place] [id number] Subjective: * Chief Complaints: * 1 . R ft & ankle swollen. * HPI: H PI: New Complaint E stablished patient presents with a new complaint. P atient complains of an issue to her right foot and ankle. Patient states the pain is across the front of her ankle and she feels it with every step as a soreness. Patient states the pain radiates up into her ankle and calf. D uration of problem is a couple months. M A: As. * ROS: G eneral / Constitutional: Patient denies w eakness. R espiratory: Patient denies c hronic cough, shortness of breath, sputum production. C ardiovascular: Patient denies c hest pain, history of NM, irregular heartbeat. M usculoskeletal: Patient complains of j oint stiffness, arthritis, arch pain. P eripheral Vascular: Patient denies b lanching of skin, cold extremities, decreased sensation in extremities. S kin: Patient denies f ungal nails, itching. N eurologic: Patient denies d izziness, gait abnormality, headache. * Medical History: * Medications: T aking Oxybutynin Chloride 5 MG Oral Tablet ORAL , Notes to Pharmacist: oxybutynin chloride 5 MG Oral TabletOriginal Medicationoxybutynin chloride 5 MG Oral Tablet *Reorder from [facility] for eRx and Interaction Alerts*, Taking Spironolactone 25 MG Oral Tablet ORAL , Notes to Pharmacist: spironolactone 25 MG Oral TabletOriginal Medicationspironolactone 25 MG Oral Tablet *Reorder from [facility] for eRx and Interaction Alerts*, Taking Warfarin Sodium 2.5 MG Oral Tablet ORAL , Notes to Pharmacist: warfarin sodium 2.5 MG Oral TabletOriginal Medicationwarfarin sodium 2.5 MG Oral Tablet *Reorder from [facility] for eRx and Interaction Alerts*, Taking Pravastatin Sodium 10 MG Oral Tablet ORAL , Notes to Pharmacist: pravastatin sodium 10 MG Oral TabletOriginal Medicationpravastatin sodium 10 MG Oral Tablet *Reorder from [facility] for eRx and Interaction Alerts*, Taking acetaminophen 300 MG / hydrocodone bitartrate 5 MG Oral Tablet ORAL , Notes to Pharmacist: acetaminophen 300 MG / hydrocodone bitartrate 5 MG Oral TabletOriginal Medicationacetaminophen 300 MG / hydrocodone bitartrate 5 MG Oral Tablet *Reorder from [facility] for eRx and Interaction Alerts* Objective: * Vitals: W t: 187 lbs, Wt-k.82 kg, Ht: 65.00 in, Ht-cm: 165.10 cm, BMI: 31.12 Index, Body Surface Area: 1.97. * Examination: P hysical Examination: V ascular: Dorsalis Pedis pulse noted at 2/4 right foot and 2/4 left foot and Posterior Tibial pulse noted at 2/4 right foot and 2/4 left foot, Capillary refill times noted to be less than three seconds x ten, Temperature gradient noted to be warm to cool to bilateral foot, pedal hair present to bilateral foot and no varicosities are noted Dermatologic: there are no open lesions, no signs of active clinical infection, no erythema noted, no ecchymoses, nails are at hygienic length during todays visit, interdigital spaces clean dry and intact Neurology: protective sensation intact to light touch bilateral digits one through five, vibratory sensation intact to first metatarsophalangeal joint bilaterally Musculoskeletal: pain to palpation medial gutter right ankle, pain along dorsal clear space to right ankle, pain with right ankle sagittal plane range of motion, pain with resisted dorsiflexion right ankle, ankle joint range of motion 0 degree with knee extended bilateral side, arch height 2/5 NWB bilateral 1/5 WB, no calf pain noted b/l, too many toes signs noted on weight bearing exam. Assessment: * Assessment: 1. L ocalized edema - R60.0 (Primary) 2 . F lat foot [pes planus] (acquired), right foot - M21.41 3 . A nterior tibial syndrome, right leg - M76.811 4 . P rimary osteoarthritis, right ankle and foot - M19.071 Plan: * Treatment: 2. A nterior tibial syndrome, right leg Notes: Tibialis Anterior Tendonitis: I discussed anti-inflammatory treatment options and various means of immobilization with the patient. I educated the patient on icing and stretching, supportive shoegear, and the use of orthotic devices and bracing. Soft cast applied at todays visit to right lower extremity with use of unna boot coban to aid in immobilization and compression across injury site. Instructed patient keep dressing clean dry and intact. 3. P rimary osteoarthritis, right ankle and foot Notes: Arthritis, Osteo: I discussed anti-inflammatory treatment options and various means of immobilization with the patient. I educated the patient on icing and stretching, supportive shoegear, and the use of orthotic devices and bracing. * Procedure Codes: 2 9580 APPLICATION OF PASTE BOOT, Modifiers: RT * Follow Up: 2 Weeks * Billing Information: * Visit Code: 47378 Office Visit, Est Pt., Level 3. Modifiers: 25 * Procedure Codes: 80497 APPLICATION OF PASTE BOOT. Modifiers: RT * L INSPECTOR SHUTTLE Sign off status: Completed true * Provider: Brandon MAGUIRE Date: 0 06/27/2023 Generated for Nilesh lyles/Taco/Loretta on: 0 09/14/2024 11:40 AM CDT History and Physical Notes * HPI (History of Present Illness) Category Sub-Category Detail Notes Category Not es HPI New Complaint Established kimmy ent presents with a new complaint.Patient complains of an issue to her right foot and ankle. Patient states the pain is across the front of her ankle and she feels it with every step as a soreness. Patient states the pain radiates up into her ankle and calf.Duration of problem is a couple months.MA: As Examination Category Sub-Category Detail Notes Category Not es Physical Examination Vascular: Dorsalis Pedis pulse noted at 2/4 right foot and 2/4 left foot and Posterior Tibial pulse noted at 2/4 right foot and 2/4 left foot, Capillary refill times noted to be less than three seconds x ten, Temperature gradient noted to be warm to cool to bilateral foot, pedal hair present to bilateral foot and no varicosities are noted Dermatologic: there are no open lesions, no signs of active clinical infection, no erythema noted, no ecchymoses, nails are at hygienic length during todays visit, interdigital spaces clean dry and intact Neurology: protective sensation intact to light touch bilateral digits one through five, vibratory sensation intact to first metatarsophalangeal joint bilaterally Musculoskeletal: pain to palpation medial gutter right ankle, pain along dorsal clear space to right ankle, pain with right ankle sagittal plane range of motion, pain with resisted dorsiflexion right ankle, ankle joint range of motion 0 degree with knee extended bilateral side, arch height 2/5 NWB bilateral 1/5 WB, no calf pain noted b/l, too many toes signs noted on weight bearing exam
--- OUTSIDE RECORDS SUMMARY | 2024-09-14 11:40 | XMS_ITS | Clinical Summary ---
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 No 05/27/2023 Comments No Sex and Gender Information Value Date Recorded Sex Assigned at Not on file Legal Sex Female 8:54 PM CDT Gender Identity Not on file Sexual Orientation Not on file Last Filed Vital Signs Vital Sign Reading Time Taken Comments Blood Pressure 132/70 07/26/2023 12:50 PM [employer]OL SYSTEM[employer] DEVELOPER Pulse 73 07/26/2023 12:50 PM [employer]OL SYSTEM[employer] DEVELOPER Temperature 36.7 C (98 F) 05/30/2023 9:00 AM [employer] SYSTEM[employer] DEVELOPER Respiratory Rate 16 07/26/2023 12:5 0 PM [employer]OL SYSTEMS DEVELOPER Oxygen Saturation 97% 07/26/2023 12: 50 PM CONTROL SYSTEMS DEVELOPER Inhaled Oxygen Concentration - - Weight 64.3 kg (141 lb 12.8 oz) 024 12:50 PM CONTROL SYSTEMS DEVELOPER Height 165.1 cm (5' 5 ) 07/26/2023 12:5 0 PM [employer]OL SYSTEMS DEVELOPER Body Mass Index 23.6 07/26/2023 12:50 PM CONTROL SYSTEMS DEVELOPER Plan of Treatment Health Maintenance Due Date Last Done Comments ASCVD LDL 1940 ASCVD Statin 1940 Zoster Vaccines (1 of 2) 1988 Annual Medicare Wellness Visit 11/17/2003 RSV Immunization or 60+ Years (1 - 1-dose 75+ series) 2013 COVID-19 Vaccine ( season) 2024 12/01/2021, 06/16/2021, 09/25/2020, Additional history exists Influenza Adult (#1) 2024 03/01/2022, 04/29/2020, 04/21/2019, Additional history exists DTaP, Tdap and Td Vaccines (2 - Td or Tdap) 11/30/2033 12/01/2023 Pneumococcal Vaccine: 65+ Years Completed 01/19/2022, 03/24/2015 Meningococcal B Vaccine Aged Out No l onger eligible based on patient's age to complete this topic Meningococcal Vaccine Aged Out No everett areli eligible based on patient's age to complete this topic RSV Immunizations Under 20 Months Aged Out No longer eligible based on patient's age to complete this topic Insurance MEDICARE [facility] Advance Directives * Full Code (Latest Code Status on File) Date Activated Date Inactivated Comments 05/27/2023 2:16 PM 05/30/2023 1:22 PM * Full Code Date Activated Date Inactivated Comments 08/31/2021 2:52 PM 09/02/2021 1:52 PM Care Teams Merchandising Team Lead Relationship Specialty Start Date End Date Jose A Lakhani DO [address] [place] [address] PCP - General FAMILY PRACTICE 05/24/23
--- OUTSIDE RECORDS SUMMARY | 2024-09-14 11:41 | XMS_ITS | Data Portability ---
Author Organization [facility], [address] [place] [address] Neurology ([place]) Address [address] [address] Care Team Providers Care Platform Architect Name Role Phone SUKHI SAUNDERS Primary Care Provider [phone] Assessment Encounter Date Assessment Date Assessment LastModified [...] view No observ ation record ed. [email or web address] Ut Only - [facility] Radiology [address] [place] [address], [id number], 01/09/2024 11:26:55 01/09/20 24 12/25/2023 CT, brain , w/o contr ast No observ ation record ed. nadya Not Available 2023 11:27:50 Result Notes None recorded. Problems Name Problem SNOMED Code Status Onset Date Resolution Date Notes Provider Name and Address Organization Details Recorded Time Pain of left knee joint 515643134753502 Active 2023 Jake Vickers MD [address] [place] [address], [phone], [facility] 4 10:41:10 Pain of right knee joint 855262088622108 Active 2023 Jake Vickers MD [address] [place] [address], [phone], [facility] 4 10:41:22 Problem Notes None recorded. Procedures Surgical History None recorded. Imaging Results Imaging Date Name Status LastModified by Organiz ation Details LastModified Time 12/25/2023 XR, knee, 4 or more view completed [email or web address] Sc Only - [facility] Radiology [address] [place] [address], [phone], 01/09/2024 11:26:55 12/25/2023 CT, brain, w/o contrast completed [email or web address] Information not available 01/09/2024 11:27:50 Procedure Notes None recorded. Medical Equipment None Reported. Allergies Allergen ID Allergen Name Allergen Category Reaction Reaction Severity Criticality Documentation Date Start Date Code Code System Note Provider Name and Address Organization Details Recorded Time 541847 prednison e medicatio n Not available Not available Not available 07/22/20232016 8640 RxNorm Not Available Not Available Not Available 160080 Acetamino phen / Propoxyph mary medicatio n Not available Not available Not available 07/22/20232016 08668 RxNorm Not Available Not Available Not Available [...] Diagnosis/Indication Diagnosis SNOMED-CT Code Diagnosis ICD10 Code Diagnosis Note [id number] Jake Vickers MD [facility] [place]) [address] [place] [address] 12/24/2023 09:23:19 12/24/2023 14:59:46 Pain of left knee joint [id number] 01694 M25.562 Additional diagnosis detail: Pain, joint, knee, left Pain of ri ght knee joint 7569609553 87793 M25.561 Additional diagnosis detail: Pain, joint, knee, right Health Concerns Section Related Observation LastModified by Organization Detai ls LastModified Time None Recorded Concern Status LastModified by Organization Details LastModified Time None Recorded Advance Directives Directive None Recorded Payers Encounter Date Sequence Insurance Name Policy Number Policy Eduardo Covered Member ID Eduardo Member ID Guarantor Name 12/24/2023 1 [place] Linda Garza [id number] Linda Garza 12/24/2023 2 [place]) [id number] Ricky Garza [id number] Linda Gazra OBGyn Episode No OBEpisode recorded.
--- OUTSIDE RECORDS SUMMARY | 2024-09-14 11:41 | XMS_ITS ---
Author Organization [facility] Address [address] [place], [place] [address] Care Team Providers Care Recordist Name Role Phone RALF LAU Unavailable [phone] Sixto Lund Unavailable Unavailable ORTIZ MAGUIRE Unavailable [phone] REASON FOR VISIT ft swollen and painful Medications Medication SIG (Take, Route, Frequency, Duration) Notes Start Date End Date Status Spironolactone 25 MG Oral Tablet ORAL spironolactone 25 MG Oral TabletOriginal Medicationspironolactone 25 MG Oral Tablet *Reorder from [email or web address] for eRx and Interaction Alerts* 3 Active Warfarin Sodium 2.5 MG Oral Tablet ORAL warfarin sodium 2.5 MG Oral TabletOriginal Medicationwarfarin sodium 2.5 MG Oral Tablet *Reorder from [email or web address] for eRx and Interaction Alerts* 3 Active Pravastatin Sodium 10 MG Oral Tablet ORAL pravastatin sodium 10 MG Oral TabletOriginal Medicationpravastatin sodium 10 MG Oral Tablet *Reorder from [email or web address] for eRx and Interaction Alerts* 3 Active acetaminophen 300 MG / hydrocodone bitartrate 5 MG Oral Tablet ORAL acetaminophen 300 MG / hydrocodone bitartrate 5 MG Oral TabletOriginal Medicationacetaminophen 300 MG / hydrocodone bitartrate 5 MG Oral Tablet *Reorder from [email or web address] for eRx and Interaction Alerts* 3 Active Oxybutynin Chloride 5 MG Oral Tablet ORAL oxybutynin chloride 5 MG Oral TabletOriginal Medicationoxybutynin chloride 5 MG Oral Tablet *Reorder from [email or web address] for eRx and Interaction Alerts* 3 Active Vital Signs Height 65.00 in 11/14/2023 Weight 187 lbs 11/14/2023 BMI 31.12 kg/m2 11/14/2023 Height-cm 165.10 cm 11/14/2023 Weight-kg 84.82 kg 11/14/2023 Encounters Encounter Location Date Provider Diagnosis [place] [address] [place], [place] [id number] 11/14/2023 ORTIZ MAGUIRE Localized edema R60.0 ; 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 11/14/2023 Anterior tibial syndrome, right leg (ICD-10 [...] right foot Patient educated on etiology and treatment options [...] warm water soaks and ankle compression sleeve. Anterior tibial syndrome, right leg Tibialis Anterior Tendonitis: I discussed anti-inflammatory treatment options and various means of immobilization with the patient. I educated the patient on icing and stretching, supportive shoegear, and the use of orthotic devices and bracing. Primary osteoarthritis, righ t ankle and foot Arthritis, Osteo: I discussed anti-inflammatory treatment options and various means of immobilization with the patient. I educated the patient on icing and stretching, supportive shoegear, and the use of orthotic devices and bracing. Next Appt Details Follow Up: prn, Reason: Progress Notes * ENMA MATOS HDOB:1940 (83 yo F)Acc No.[id number]:11/14/2023 Patient: Kourtney ENMA CAREY Merlin Provider: Brandon MAGUIRE :1940 A ge:82 Y S ex:Female Date:11/14/2023 Address:[address] [place], [place] [id number] Subjective: * Chief Complaints: * 1 . Ft swollen and painful. * HPI: H PI: New Complaint E stablished patient presents with a new complaint. , Patient complains of an issue to her right foot. Pt complains her foot has been swelling and painful for a few weeks. Pt does not recall an injury or bumping anything. , Duration of problem is 3 weeks. , MA: As. * ROS: G eneral / Constitutional: Patient denies w eakness. R espiratory: Patient denies c hronic cough, shortness of breath, sputum production. C ardiovascular: Patient denies c hest pain, history of [place], irregular heartbeat. M usculoskeletal: Patient complains of [...] chloride 5 MG Oral Tablet *Reorder from [facility] for eRx and Interaction Alerts*, Taking Spironolactone 25 MG Oral Tablet ORAL , Notes to Pharmacist: spironolactone 25 MG Oral TabletOriginal Medicationspironolactone 25 MG Oral Tablet *Reorder from [facility] for eRx and Interaction Alerts*, Taking Warfarin Sodium 2.5 MG Oral Tablet ORAL , Notes to Pharmacist: warfarin sodium 2.5 MG Oral TabletOriginal Medicationwarfarin sodium 2.5 MG Oral Tablet *Reorder from [facility] for eRx and Interaction Alerts*, Taking Pravastatin Sodium 10 MG Oral Tablet ORAL , Notes to Pharmacist: pravastatin sodium 10 MG Oral TabletOriginal Medicationpravastatin sodium 10 MG Oral Tablet *Reorder from [facility] for eRx and Interaction Alerts*, Taking acetaminophen 300 MG / hydrocodone bitartrate 5 MG Oral Tablet ORAL , Notes to Pharmacist: acetaminophen 300 MG / hydrocodone bitartrate 5 MG Oral TabletOriginal Medicationacetaminophen 300 MG / hydrocodone bitartrate 5 MG Oral Tablet *Reorder from [facility] for eRx and Interaction Alerts* Objective: [...] pedal hair present to bilateral foot and perimalleolar varicosities are noted with pitting edema to right ankle Dermatologic: there are no open lesions, no signs of active clinical infection, no erythema noted, no ecchymoses, nails are at hygienic length during todays visit, interdigital spaces clean dry and intact Neurology: protective sensation intact to light touch bilateral digits one through five, vibratory sensation intact to first metatarsophalangeal joint bilaterally Musculoskeletal: minimal pain to palpation medial gutter right ankle, mild pain along dorsal clear space to right ankle, minimal pain with right ankle sagittal plane range [...] the use of orthotic devices and bracing. 3. P rimary osteoarthritis, right ankle and foot Notes: Arthritis, Osteo: I discussed anti-inflammatory treatment options and various means of immobilization with the patient. I educated the patient on icing and stretching, supportive shoegear, and the use of orthotic devices and bracing. * Follow Up: p rn * Billing Information: * Visit Code: 79556 Office Visit, Est Pt., Level 3. * Procedure Codes: * Sign off status: Completed true * Provider: Brandon MAGUIRE Date: 0 11/14/2023 Generated for Nilesh lyles/Taco/Loretta on: 0 09/14/2024 11:40 AM CDT History and Physical Notes * HPI (History of Present Illness) Category Sub-Category Detail Notes Category Not es HPI New Complaint Established kimmy ent presents with a new complaint. , Patient complains of an issue to her right foot. Pt complains her foot has been swelling and painful for a few weeks. Pt does not recall an injury or bumping anything. , Duration of problem is 3 weeks. , MA: As Examination Category Sub-Category Detail Notes Category [...] pedal hair present to bilateral foot and perimalleolar varicosities are noted with pitting edema to right ankle Dermatologic: there are no open lesions, no signs of active clinical infection, no erythema noted, no ecchymoses, nails are at hygienic length during todays visit, interdigital spaces clean dry and intact Neurology: protective sensation intact to light touch bilateral digits one through five, vibratory sensation intact to first metatarsophalangeal joint bilaterally Musculoskeletal: minimal pain to palpation medial gutter right ankle, mild pain along dorsal clear space to right ankle, minimal pain with right ankle sagittal plane range of motion, pain with resisted dorsiflexion right ankle, ankle joint range of motion 0 degree with knee extended bilateral side, arch height 2/5 NWB bilateral 1/5 WB, no calf pain noted b/l, too many toes signs noted on weight bearing exam
--- OUTSIDE RECORDS SUMMARY | 2024-09-14 11:41 | XMS_ITS | Referral Summary ---
Author Organization [facility] [address] Address [address] [place] [address] Care Team Providers Care Hvac Operations Technician Name Role Phone JossieJose A cameron Primary Care Provider Allergies Active Allergy Reactions Criticality Noted Date Comments Jono Inhibitors Unknown 09/06/2021 Amoxicillin Unknown 09/07/2021 Aspirin Unknown 09/06/2021 Ciprofloxacin Unknown 09/06/2021 Fesoterodine Unknown 09/06/2021 Prednisone Propoxyphene-Acetaminophen Trzmffe-Wcg-Uzx Reductase Inhibitors Muscle pain Medium 05/20/2017 Sulfamethoxazole-Trimethoprim Unknown 2021 Medications aspirin 81 mg tablet Take 1 tablet (81 mg total) by mouth daily Active rosuvastatin (CRESTOR) 10 mg tabletIndicatio ns:Dyslipidemia Take 1 tablet (10 mg total) by mouth daily 90 tablet 2 12/21/2021 Active nitroglycerin (NITROSTAT) 0.4 mg SL tabletIndicatio ns:Coronary artery disease of [place] artery of [place] heart with stable angina pectoris Place 1 tablet (0.4 mg [...] Deep vein thrombosis (DVT) of upper extremity Overview (09/29/2016): Deep venous thrombosis of left upper extremity Chronic anticoagulation 05/17/2015 Overview (09/29/2016): Chronic anticoagulation Anxiety 05/17/2015 Overview (09/29/2016): Anxiety Coronary artery disease invo lving [place] coronary artery of [place] heart without angina pectoris 05/17/2015 Overview (09/29/2016): Coronary artery disease involving [place] coronary artery of [place] heart with other form of angina pectoris [...] on file Legal Sex 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 Gender Identity Not on file Sexual Orientation Not on file Last Filed Vital Signs Vital Sign Reading Time Taken Comments Blood Pressure 136/86 04/30/2024 11:15 AM ICEBOX MAN Pulse 93 04/20/2024 10:35 AM CDT Temperature 36.1 C (97 F) 07/27/2020 9:10 AM ICEBOX MAN Respiratory Rate 16 05/28/2019 10:10 AM ICEBOX MAN Oxygen Saturation 97% 04/20/2024 10:35 AM CDT Inhaled Oxygen Concentration - - Weight 61.8 kg (136 lb 4.8 oz) 04/20/2024 10:35 AM CDT Height 165.1 cm (5' 5 ) 04/20/2024 10:35 AM CDT Body Mass Index 22.68 04/20/2024 10:35 AM CDT Plan of Treatment Not on file Insurance MEDICARE [facility] MEDICARE [facility] Care Teams Hvac Operations Technician Relationship Specialty Start Date End Date Jose A Lakhani DO [address] [place] [address] PCP - General Family Medicine 05/15/23
--- OUTSIDE RECORDS SUMMARY | 2024-09-14 11:41 | XMS_ITS | Clinical Summary ---
Author Organization [facility] [address] Address [address] [place] [address] Care Team Providers Care County Sheriff Name Role Phone Jose A Lakhani Primary Care Provider Allergies Active Allergy Reactions Criticality Noted Date Comments Jono Inhibitors Unknown 09/06/2021 Amoxicillin Unknown 09/07/2021 Aspirin Unknown 09/06/2021 Ciprofloxacin Unknown 09/06/2021 Fesoterodine Unknown 09/06/2021 Prednisone Propoxyphene-Acetaminophen Kbnpmnb-Ogr-Zal Reductase Inhibitors Muscle pain Medium 05/20/2017 Sulfamethoxazole-Trimethoprim Unknown 2021 Medications aspirin 81 mg tablet Take 1 tablet (81 mg total) by mouth daily Active rosuvastatin (CRESTOR) 10 mg tabletIndicatio ns:Dyslipidemia Take 1 tablet (10 mg total) by mouth daily 90 tablet 2 12/21/2021 Active nitroglycerin (NITROSTAT) 0.4 mg SL tabletIndicatio ns:Coronary artery disease of [place] artery of [place] heart with stable angina pectoris Place 1 [...] (09/29/2016): Anxiety Coronary artery disease invo lving [place] coronary artery of [place] heart without angina pectoris 05/17/2015 Overview (09/29/2016): Coronary artery disease involving [place] coronary artery of [place] heart with other form of angina pectoris Orthostatic hypotension 05/17/2015 Overview (09/29/2016): Orthostatic hypotension Primary hypertension 01/13/2014 Overview (09/29/2016): HTN (hypertension), benign Resolved Problems Problem Noted Date Diagnosed Date Resolved Date Dyslipidemia 08/10/2015 06/21/2021 Overview (09/29/2016): Mixed dyslipidemia Recurrent falls 05/17/2015 03/19/2017 Overview (09/29/2016): Frequent falls Surgical History Surgery Date Site/Laterality Comments OTHER [...] file Legal Sex 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 [employer] Gender Identity Not on file Sexual Orientation Not on file Obstetrics History Last Filed Vital Signs Vital Sign Reading Time Taken Comments Blood Pressure 136/86 04/30/2024 11:15 AM [employer] Pulse 93 04/20/2024 10:35 AM CDT Temperature 36.1 C (97 F) 07/27/2020 9:10 AM [employer] Respiratory Rate 16 05/28/2019 10:10 AM [employer] Oxygen Saturation 97% 04/20/2024 10:35 AM CDT [...] Fall Risk Assessment 03/20/2022 03/20/2021 Covid-19 Vaccine (2023-2 5 season) 2024 06/16/2021, 09/25/2020, 08/28/2020 Influenza Vaccine (#1) 2024 , 04/29/2020, 04/21/2019, Additional history exists DTaP/Tdap/Td Vaccine (2 - Td or Tdap) 11/30/2033 12/01/2023 Pneumococcal vaccine 65+ Completed 01/19/2022, 1006/2014 Insurance MEDICARE [facility] MEDICARE [facility] Care Teams County Sheriff Relationship Specialty Start Date End Date Jose A Lakhani DO [address] [place] [address] PCP - General Family Medicine 05/15/23
--- OUTSIDE RECORDS SUMMARY | 2024-09-14 11:41 | XMS_ITS | Encounter Summary ---
Author Organization [facility] Address [facility] [place] [address] Care Team Providers Care Grader Marker Name Role Phone None, Provider Primary Care Provider Sixto Reeves MD Primary Care Provider [phone] Jose A Lakhani DO Primary Care Provider [phone] Encounter Details Date Type Department Care Team (Late st Contact Info) Description 11/29/2018 Abstract [facility]FL CONVERSION [address] [address] , Generic Conversion, Social History Tobacco Use [...] Rule Out 08/31/2021 08/31/2021 09/01/2021 7:49 PM CCNA documented as of this encounter Care Teams Grader Marker Relationship Specialty Start Date End Date None, Provider, PCP - General 08/31/21 08/31/21 Sixto Lund MD [address] [place] [id number] PCP - General INTERNAL MEDICINE 09/01/21 05/23/23 Jose A Lakhani DO [address] [place] [address] PCP - General FAMILY PRACTICE 05/24/23 documented as of this encounter
--- OUTSIDE RECORDS SUMMARY | 2024-09-14 11:41 | XMS_ITS ---
Author Organization [facility] Address [address] [place], [place] [id number] Care Team Providers Care Video Engineer Name Role Phone RALF LAU Unavailable [phone] Sixto Lund Unavailable Unavailable ORTIZ MAGUIRE Unavailable [phone] REASON FOR VISIT CHECK Medications Medication SIG (Take, Route, Frequency, Duration) Notes Start Date End Date Status Spironolactone 25 MG Oral Tablet ORAL spironolactone 25 MG Oral TabletOriginal Medicationspironolactone 25 MG Oral Tablet *Reorder from [employer] for eRx and Interaction Alerts* 3 Active Oxybutynin Chloride 5 MG Oral Tablet ORAL oxybutynin chloride 5 MG Oral TabletOriginal Medicationoxybutynin chloride 5 MG Oral Tablet *Reorder from [employer] for eRx and Interaction Alerts* 3 Active Warfarin Sodium 2.5 MG Oral Tablet ORAL warfarin sodium 2.5 MG Oral TabletOriginal Medicationwarfarin sodium 2.5 MG Oral Tablet *Reorder from [employer] for eRx and Interaction Alerts* 3 Active acetaminophen 300 MG / hydrocodone bitartrate 5 MG Oral Tablet ORAL acetaminophen 300 MG / hydrocodone bitartrate 5 MG Oral TabletOriginal Medicationacetaminophen 300 MG / hydrocodone bitartrate 5 MG Oral Tablet *Reorder from [employer] for eRx and Interaction Alerts* 3 Active Pravastatin Sodium 10 MG Oral Tablet ORAL pravastatin sodium 10 MG Oral TabletOriginal Medicationpravastatin sodium 10 MG Oral Tablet *Reorder from [employer] for eRx and Interaction Alerts* 05/01/201 3 Active Vital Signs Height 65.00 in 07/11/2023 Weight 187 lbs 07/11/2023 BMI 31.12 kg/m2 07/11/2023 Height-cm 165.10 cm 07/11/2023 Weight-kg 84.82 kg 07/11/2023 Encounters Encounter Location Date Provider Diagnosis [facility] [place] [address] [place], [place] [id number] 07/11/2023 ORTIZ MAGUIRE Localized edema R60.0 ; 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 Educated patient on how a flexible flat foot deformity can in turn result in pathology such as hammer toe, bunions, equinus, neuromas. Recommend use of custom foot inserts to help alleviate plantar peak pressures and accomodate for digital deformity to feet. PowerStep Inserts: The patient was dispensed and fitted with over the counter arch supports. The patient was educated on their use and effect. All questions were answered. 07/11/2023 Anterior tibial syndrome, right leg (ICD-10 - M76.811) Tibialis Anterior Tendonitis: I discussed anti-inflammatory treatment options and various means of immobilization with the patient. I educated the patient on icing and stretching, supportive shoegear, and the use of orthotic devices and bracing. 07/11/2023 Primary osteoarthritis , right ankle and foot [...] and accomodate for digital deformity to feet. Power[employer] Inserts: The patient was dispensed and fitted with over the counter arch supports. The patient was educated on their use and effect. All questions were answered. Anterior tibial syndrome, right leg Tibialis Anterior [...] * ENMA MATOS HDOB:1940 (82 yo F)Acc No.[id number]:07/11/2023 Patient: Kourtney AGUILARCOMPA ENMA Provider: Brandon MAGUIRE :1940 A ge:82 Y S ex:Female Date:07/11/2023 Address:[address] [place], [place] [id number] Subjective: * Chief Complaints: * 1 . CHECK. * HPI: H PI: Follow Up Visit Brittaney menendezkarol presents for follow up visit for foot/ankle pain. P tiffanie states their problem is,improving., Patient states she took the unna boot off a couple days ago. Pt states she has been having tinggling and burning in the evening. Patient states she sometimes gets some soreness in the arch of both feet as well especially when standing for extended periods of time. M A: As. * ROS: G eneral / Constitutional: Patient denies w eakness. R espiratory: Patient denies c hronic cough, shortness of breath, sputum production. C ardiovascular: Patient denies c hest pain, history of [place], irregular heartbeat. M usculoskeletal: Patient complains of [...] chloride 5 MG Oral Tablet *Reorder from [facility] for eRx and Interaction Alerts*, Taking Spironolactone 25 MG Oral Tablet ORAL , Notes to Pharmacist: spironolactone 25 MG Oral TabletOriginal Medicationspironolactone 25 MG Oral Tablet *Reorder from [facility] for eRx and Interaction Alerts*, Taking Warfarin Sodium 2.5 MG Oral Tablet ORAL , Notes to Pharmacist: warfarin sodium 2.5 MG Oral TabletOriginal Medicationwarfarin sodium 2.5 MG Oral Tablet *Reorder from [facility] for eRx and Interaction Alerts*, Taking Pravastatin Sodium 10 MG Oral Tablet ORAL , Notes to Pharmacist: pravastatin sodium 10 MG Oral TabletOriginal Medicationpravastatin sodium 10 MG Oral Tablet *Reorder from [facility] for eRx and Interaction Alerts*, Taking acetaminophen 300 MG / hydrocodone bitartrate 5 MG Oral Tablet ORAL , Notes to Pharmacist: acetaminophen 300 MG / hydrocodone bitartrate 5 MG Oral TabletOriginal Medicationacetaminophen 300 MG / hydrocodone bitartrate 5 MG Oral Tablet *Reorder from [facility] for eRx and Interaction Alerts* Objective: [...] rn * Billing Information: * Visit Code: 80252 Office Visit, Est Pt., Level 3. * Procedure Codes: * PAPER MACHINE OPERATOR Sign off status: Completed true * Provider: Brandon MAGUIRE Date: 0 07/11/2023 Generated for Nilesh lyles/Taco/Loretta on: 0 09/14/2024 11:40 AM CDT History and Physical Notes * HPI (History of Present Illness) Category Sub-Category Detail Notes Category Not es HPI Follow Up Visit Patient presents for follow up visit for foot/ankle pain.Patient states their problem is,improving., Patient states she took the unna boot off a couple days ago. Pt states she has been having tinggling and burning in the evening. Patient states she sometimes gets some soreness in the arch of both feet as well especially when standing for extended periods of time. MA: As Examination Category Sub-Category Detail Notes [...]
== END 2024-09-14 10:09 | disposition home or self-care (01) ==
LOC: CHSLAB 10:10
PROVIDERS: PCP Family Medicine; Visit Provider Nurse Practitioner Family
DX: R73.01 Impaired fasting glucose (principal); N39.0 Urinary tract infection, site not specified; E87.1 Hypo-osmolality and hyponatremia
CPT/HCPCS: 36415; 80053; 81003; 83036

== ENCOUNTER 2024-10-08 09:06 | Outpatient (CLI) | payer MEDICARE, SELFPAY ==
--- OUTSIDE RECORDS SUMMARY | 2024-10-08 09:31 | XMS_ITS | Patient Health Record ---
Author Organization [facility] Address [address] [place], [place] [address] Care Team Providers Care Glazier Artist Name Role Phone RALF LAU Unavailable [phone] Sixto Lund Unavailable Unavailable ORTIZ MAGUIRE Unavailable [phone] Allergies Allergen (clinical drug ingredient) Drug/Non Drug Allergy documented on EMR Reaction Allergy Type Onset Date Status predniSONE Unknown Drug Allergy 10/22/2012 activ e Reason For Referral No Information Medications Medication SIG (Take, Route, Frequency, Duration) Notes Start Date End Date Status Spironolactone 25 MG Oral Tablet ORAL spironolactone 25 MG Oral TabletOriginal Medicationspironolactone 25 MG Oral Tablet *Reorder from [employer] for eRx and Interaction Alerts* 3 Active Warfarin Sodium 2.5 MG Oral Tablet ORAL warfarin sodium 2.5 MG Oral TabletOriginal Medicationwarfarin sodium 2.5 MG Oral Tablet *Reorder from [employer] for eRx and Interaction Alerts* 3 Active Pravastatin Sodium 10 MG Oral Tablet ORAL pravastatin sodium 10 MG Oral TabletOriginal Medicationpravastatin sodium 10 MG Oral Tablet *Reorder from [employer] for eRx and Interaction Alerts* 3 Active acetaminophen 300 MG / hydrocodone bitartrate 5 MG Oral Tablet ORAL acetaminophen 300 MG / hydrocodone bitartrate 5 MG Oral TabletOriginal Medicationacetaminophen 300 MG / hydrocodone bitartrate 5 MG Oral Tablet *Reorder from [employer] for eRx and Interaction Alerts* 3 Active Oxybutynin Chloride 5 MG Oral Tablet ORAL oxybutynin chloride 5 MG Oral TabletOriginal Medicationoxybutynin chloride 5 MG Oral Tablet *Reorder from [employer] for eRx and Interaction Alerts* 3 Active Vital Signs Height-cm 165.10 cm 11/14/2023 Weight-kg 84.82 kg 11/14/2023 Height 65.00 in 11/14/2023 Weight 187 lbs 11/14/2023 BMI 31.12 kg/m2 11/14/2023 Encounters Encounter Location Date Provider Diagnosis [facility] [place] [place], [place] [id number] 11/14/2023 ORTIZ MAGUIRE Localized edema R60.0 ; [...] Date Coverage End Date Medicare Part B [place] [address] [place] [address] [id number] ENMA MATOS Self - patient is the insured [facility] ATTN CLAIMS [address] [place] [address] [id number] ENMA MATOS Self - patient is the insured [facility] B [address] [place] [phone] [id number] ENMA MATOS Self - patient is the insured
--- OUTSIDE RECORDS SUMMARY | 2024-10-08 09:31 | XMS_ITS ---
Author Organization [facility] Address [address] [place], [place] [address] Care Team Providers Care Retail Sales Specialist Name Role Phone RALF LAU Unavailable [phone] Sixto Lund Unavailable Unavailable ORTIZ MAGUIRE Unavailable [phone] REASON FOR VISIT R ft & ankle swollen Medications Medication SIG (Take, Route, Frequency, Duration) Notes Start Date End Date Status Oxybutynin Chloride 5 MG Oral Tablet ORAL oxybutynin chloride 5 MG Oral TabletOriginal Medicationoxybutynin chloride 5 MG Oral Tablet *Reorder from [facility] for eRx and Interaction Alerts* 3 Active Spironolactone 25 MG Oral Tablet ORAL spironolactone 25 MG Oral TabletOriginal Medicationspironolactone 25 MG Oral Tablet *Reorder from [facility] for eRx and Interaction Alerts* 3 Active Warfarin Sodium 2.5 MG Oral Tablet ORAL warfarin sodium 2.5 MG Oral TabletOriginal Medicationwarfarin sodium 2.5 MG Oral Tablet *Reorder from [facility] for eRx and Interaction Alerts* 3 Active Pravastatin Sodium 10 MG Oral Tablet ORAL pravastatin sodium 10 MG Oral TabletOriginal Medicationpravastatin sodium 10 MG Oral Tablet *Reorder from [facility] for eRx and Interaction Alerts* 3 Active acetaminophen 300 MG / hydrocodone bitartrate 5 MG Oral Tablet ORAL acetaminophen 300 MG / hydrocodone bitartrate 5 MG Oral TabletOriginal Medicationacetaminophen 300 MG / hydrocodone bitartrate 5 MG Oral Tablet *Reorder from [facility] for eRx and Interaction Alerts* 3 Active Vital Signs Height 65.00 in 06/27/2023 Weight 187 lbs 06/27/2023 BMI 31.12 kg/m2 06/27/2023 Height-cm 165.10 cm 06/27/2023 Weight-kg 84.82 kg 06/27/2023 Encounters Encounter Location Date Provider Diagnosis [facility] [address] [place], [place] [id number] 06/27/2023 ORTIZ MAGUIRE Localized edema R60.0 ; [...] * ENMA MATOS HDOB:1940 (82 yo F)Acc No.[id number]:06/27/2023 Patient: Kourtney AGUILARCOMPA ENMA H Provider: Brandon MAGUIRE :1940 A ge:82 Y S ex:Female Date:06/27/2023 Address:[address] [place], [place] [id number] Subjective: * Chief Complaints: * 1 . [...] Patient denies c hest pain, history of [place], irregular heartbeat. M usculoskeletal: Patient complains of [...] chloride 5 MG Oral Tablet *Reorder from [facility] for eRx and Interaction Alerts*, Taking Spironolactone 25 MG Oral Tablet ORAL , Notes to Pharmacist: spironolactone 25 MG Oral TabletOriginal Medicationspironolactone 25 MG Oral Tablet *Reorder from [facility] for eRx and Interaction Alerts*, Taking Warfarin Sodium 2.5 MG Oral Tablet ORAL , Notes to Pharmacist: warfarin sodium 2.5 MG Oral TabletOriginal Medicationwarfarin sodium 2.5 MG Oral Tablet *Reorder from [facility] for eRx and Interaction Alerts*, Taking Pravastatin Sodium 10 MG Oral Tablet ORAL , Notes to Pharmacist: pravastatin sodium 10 MG Oral TabletOriginal Medicationpravastatin sodium 10 MG Oral Tablet *Reorder from [facility] for eRx and Interaction Alerts*, Taking acetaminophen 300 MG / hydrocodone bitartrate 5 MG Oral Tablet ORAL , Notes to Pharmacist: acetaminophen 300 MG / hydrocodone bitartrate 5 MG Oral TabletOriginal Medicationacetaminophen 300 MG / hydrocodone bitartrate 5 MG Oral Tablet *Reorder from [facility] for eRx and Interaction Alerts* Objective: * [...] Weeks * Billing Information: * Visit Code: 46892 Office Visit, Est Pt., Level 3. Modifiers: 25 * Procedure Codes: 92125 APPLICATION OF PASTE BOOT. Modifiers: RT * R LINE WORKER Sign off status: Completed true * Provider: Brandon MAGUIRE Date: 0 06/27/2023 Generated for Nilesh lyles/Taco/Loretta on: 0 10/08/2024 09:31 AM CDT History and Physical Notes * [...]
--- OUTSIDE RECORDS SUMMARY | 2024-10-08 09:31 | XMS_ITS | Clinical Summary ---
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 No 05/27/2023 Comments No Sex and Gender Information Value Date Recorded Sex Assigned at Not on file Legal Sex Female 8:54 PM CDT Gender Identity Not on file Sexual Orientation Not on file Last Filed Vital Signs Vital Sign Reading Time Taken Comments Blood Pressure 132/70 07/26/2023 12:50 PM LABORATORY TESTER Pulse 73 07/26/2023 12:50 PM LABORATORY TESTER Temperature 36.7 C (98 F) 05/30/2023 9:00 AM LABORATORY TESTER Respiratory Rate 16 07/26/2023 12:5 0 PM LABORATORY TESTER Oxygen Saturation 97% 07/26/2023 12: 50 PM LABORATORY TESTER Inhaled Oxygen Concentration - - Weight 64.3 kg (141 lb 12.8 oz) 024 12:50 PM LABORATORY TESTER Height 165.1 cm (5' 5 ) 07/26/2023 12:5 0 PM LABORATORY TESTER Body Mass Index 23.6 07/26/2023 12:50 PM LABORATORY TESTER Plan of Treatment Health Maintenance Due Date Last Done Comments ASCVD LDL 1940 ASCVD Statin 1940 Zoster Vaccines (1 of 2) 1988 Annual Medicare Wellness Visit 11/17/2003 RSV Immunization or 60+ Years (1 - 1-dose 75+ series) 2013 COVID-19 Vaccine ( season) 2024 12/01/2021, 06/16/2021, 09/25/2020, Additional history exists DTaP, Tdap and Td Vaccines (2 - Td or Tdap) 11/30/2033 12/01/2023 Pneumococcal Vaccine: 50+ Years Completed 01/19/2022, 03/24/2015 Meningococcal B Vaccine Aged Out No l onger eligible based on patient's age to complete this topic Meningococcal Vaccine Aged Out No everett areli eligible based on patient's age to complete this topic RSV Immunizations Under 20 Months Aged Out No longer eligible based on patient's age to complete this topic Insurance MEDICARE [facility] Advance Directives * Full Code (Latest Code Status on File) Date Activated Date Inactivated Comments 05/27/2023 2:16 PM 05/30/2023 1:22 PM * Full Code Date Activated Date Inactivated Comments 08/31/2021 2:52 PM 09/02/2021 1:52 PM Care Teams Jewel Staker Relationship Specialty Start Date End Date Jose A Lakhani DO [address] [place] [address] PCP - General FAMILY PRACTICE 05/24/23
--- OUTSIDE RECORDS SUMMARY | 2024-10-08 09:32 | XMS_ITS | Encounter Summary ---
Author Organization [facility] Address [facility] [place] [address] Care Team Providers Care Brattice Builder Name Role Phone None, Provider Primary Care Provider Sixto Reeves MD Primary Care Provider [phone] Jose A Lakhani DO Primary Care Provider [phone] Encounter Details Date Type Department Care Team (Late st Contact Info) Description 11/29/2018 Abstract SFL CONVERSION [address] [place] [address] , Generic Conversion, Social History Tobacco Use [...] Rule Out 08/31/2021 08/31/2021 09/01/2021 7:49 PM CLOUD DEVELOPER documented as of this encounter Care Teams Brattice Builder Relationship Specialty Start Date End Date None, Provider, PCP - General 08/31/21 08/31/21 Sixto Lund MD [address] [place] [phone] PCP - General INTERNAL MEDICINE 09/01/21 05/23/23 Jose A Lakhani DO [address] [place] [address] PCP - General FAMILY PRACTICE 05/24/23 documented as of this encounter
--- OUTSIDE RECORDS SUMMARY | 2024-10-08 09:32 | XMS_ITS | Referral Summary ---
Author Organization [facility] [address] Address [address] [place] [address] Care Team Providers Care Environmental Professional Name Role Phone JossieJose A cameron Primary Care Provider Allergies Active Allergy Reactions Criticality Noted Date Comments Jono Inhibitors Unknown 09/06/2021 Amoxicillin Unknown 09/07/2021 Aspirin Unknown 09/06/2021 Ciprofloxacin Unknown 09/06/2021 Fesoterodine Unknown 09/06/2021 Prednisone Propoxyphene-Acetaminophen Csucjxa-Ejy-Pdt Reductase Inhibitors Muscle pain Medium 05/20/2017 Sulfamethoxazole-Trimethoprim Unknown 2021 Medications aspirin 81 mg tablet Take 1 tablet (81 mg total) by mouth daily Active rosuvastatin (CRESTOR) 10 mg tabletIndicatio ns:Dyslipidemia Take 1 tablet (10 mg total) by mouth daily 90 tablet 2 12/21/2021 Active nitroglycerin (NITROSTAT) 0.4 mg SL tabletIndicatio ns:Coronary artery disease of [place] artery of [place] heart with stable angina pectoris Place 1 [...] (09/29/2016): Anxiety Coronary artery disease invo lving [place] coronary artery of [place] heart without angina pectoris 05/17/2015 Overview (09/29/2016): Coronary artery disease involving [place] coronary artery of [place] heart with other form of angina pectoris [...] on file Legal Sex 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 Gender Identity Not on file Sexual Orientation Not on file Last Filed Vital Signs Vital Sign Reading Time Taken Comments Blood Pressure 136/86 04/30/2024 11:15 AM HOTSHOT 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 Pulse 93 04/20/2024 10:35 AM CDT Temperature 36.1 C (97 F) 07/27/2020 9:10 AM HOTSHOT 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 Respiratory Rate 16 05/28/2019 10:10 AM HOTSHOT 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 Oxygen Saturation 97% 04/20/2024 10:35 AM CDT Inhaled Oxygen Concentration - - Weight 61.8 kg (136 lb 4.8 oz) 04/20/2024 10:35 AM CDT Height 165.1 cm (5' 5 ) 04/20/2024 10:35 AM CDT Body Mass Index 22.68 04/20/2024 10:35 AM CDT Plan of Treatment Not on file Insurance MEDICARE [facility] MEDICARE [facility] Care Teams Environmental Professional Relationship Specialty Start Date End Date Jose A Lakhani DO [address] [place] [address] PCP - General Family Medicine 05/15/23
--- OUTSIDE RECORDS SUMMARY | 2024-10-08 09:32 | XMS_ITS | Clinical Summary ---
Author Organization [facility] [address] Address [address] [place] [address] Care Team Providers Care Punchboard Stuffer Name Role Phone Jose A Lakhani Primary Care Provider Allergies Active Allergy Reactions Criticality Noted Date Comments Jono Inhibitors Unknown 09/06/2021 Amoxicillin Unknown 09/07/2021 Aspirin Unknown 09/06/2021 Ciprofloxacin Unknown 09/06/2021 Fesoterodine Unknown 09/06/2021 Prednisone Propoxyphene-Acetaminophen Iycflfy-Wha-Ffx Reductase Inhibitors Muscle pain Medium 05/20/2017 Sulfamethoxazole-Trimethoprim Unknown 2021 Medications aspirin 81 mg tablet Take 1 tablet (81 mg total) by mouth daily Active rosuvastatin (CRESTOR) 10 mg tabletIndicatio ns:Dyslipidemia Take 1 tablet (10 mg total) by mouth daily 90 tablet 2 12/21/2021 Active nitroglycerin (NITROSTAT) 0.4 mg SL tabletIndicatio ns:Coronary artery disease of [place] artery of [place] heart with stable angina pectoris Place 1 [...] (09/29/2016): Anxiety Coronary artery disease invo lving [place] coronary artery of [place] heart without angina pectoris 05/17/2015 Overview (09/29/2016): Coronary artery disease involving [place] coronary artery of [place] heart with other form of angina pectoris [...] on file Legal Sex 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 Gender Identity Not on file Sexual Orientation Not on file Obstetrics History Last Filed Vital Signs Vital Sign Reading Time Taken Comments Blood Pressure 136/86 04/30/2024 11:15 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 Pulse 93 04/20/2024 10:35 AM CDT Temperature 36.1 C (97 F) 07/27/2020 9:10 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 Respiratory Rate 16 05/28/2019 10:10 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 Oxygen Saturation 97% 04/20/2024 10:35 AM CDT [...] vaccine 65+ Completed 01/19/2022, 1006/2014 Insurance MEDICARE [facility] MEDICARE [facility] Care Teams Punchboard Stuffer Relationship Specialty Start Date End Date Jose A Lakhani DO [address] [place] [address] PCP - General Family Medicine 05/15/23
--- OUTSIDE RECORDS SUMMARY | 2024-10-08 09:32 | XMS_ITS | Data Portability ---
Author Organization [facility], [address] [place] [address] Neurology ([place]) Address [address] [address] Care Team Providers Care Gold And Silver Assayer Name Role Phone SUKHI SAUNDERS Primary Care Provider Assessment Encounter Date Assessment Date Assessment LastModified [...] view No observ ation record ed. [email or web address] [facility] Only - [facility] Radiology [address] [place] [address], [address], 01/09/2024 11:26:55 01/09/20 24 12/25/2023 CT, brain , w/o contr ast No observ ation record ed. nadya Not Available 2023 11:27:50 Result Notes None recorded. Problems Name Problem SNOMED Code Status Onset Date Resolution Date Notes Provider Name and Address Organization Details Recorded Time Pain of left knee joint 715499296663830 Active 2023 Jake Vickers MD [address] [place] [address], [phone], [facility] 4 10:41:10 Pain of right knee joint 093435370871104 Active 2023 Jake Vickers MD [address] [place] [address], [phone], [facility] 4 10:41:22 Problem Notes None recorded. Procedures Surgical History None recorded. Imaging Results Imaging Date Name Status LastModified by Organiz ation Details LastModified Time 12/25/2023 XR, knee, 4 or more view completed [email or web address] [facility] Only - [facility] Radiology [address] [place] [address], [address], 01/09/2024 11:26:55 12/25/2023 CT, brain, w/o contrast completed [email or web address] Information not available 01/09/2024 11:27:50 Procedure Notes None recorded. Medical Equipment None Reported. Allergies Allergen ID Allergen Name Allergen Category Reaction Reaction Severity Criticality Documentation Date Start Date Code Code System Note Provider Name and Address Organization Details Recorded Time 086683 prednison e medicatio n Not available Not available Not available 07/22/20232016 8640 RxNorm Not Available Not Available Not Available 121798 Acetamino phen / Propoxyph mary medicatio n Not available Not available Not available 07/22/20232016 84088 RxNorm Not Available Not Available Not Available [...] SNOMED-CT Code Diagnosis ICD10 Code Diagnosis Note [id number] Jake Vickers MD [facility] [place] [address] [place] [address] 12/24/2023 09:23:19 12/24/2023 14:59:46 Pain of left knee joint [id number] 08868 M25.562 Additional diagnosis detail: Pain, joint, knee, left Pain of ri ght knee joint 8879163778 55056 M25.561 Additional diagnosis detail: Pain, joint, knee, right Health Concerns Section Related Observation LastModified by Organization Detai ls LastModified Time None Recorded Concern Status LastModified by Organization Details LastModified Time None Recorded Advance Directives Directive None Recorded Payers Encounter Date Sequence Insurance Name Policy Number Policy Eduardo Covered Member ID Eduardo Member ID Guarantor Name 12/24/2023 1 [place]ARE[place] (MEDICARE) Linda Garza [id number] Linda Garza 12/24/2023 2 [place] [id number] Ricky Garza [id number] Linda Garza OBGyn Episode No OBEpisode recorded.
--- OUTSIDE RECORDS SUMMARY | 2024-10-08 09:32 | XMS_ITS ---
Author Organization [facility] Address [address] [place], [place] [address] Care Team Providers Care Paraprofessional Education Assistant Name Role Phone RALF LAU Unavailable [phone] Sixto Lund Unavailable Unavailable ORTIZ MAGUIRE Unavailable [phone] REASON FOR VISIT CHECK Medications Medication SIG (Take, Route, Frequency, Duration) Notes Start Date End Date Status Spironolactone 25 MG Oral Tablet ORAL spironolactone 25 MG Oral TabletOriginal Medicationspironolactone 25 MG Oral Tablet *Reorder from [facility] for eRx and Interaction Alerts* 3 Active Oxybutynin Chloride 5 MG Oral Tablet ORAL oxybutynin chloride 5 MG Oral TabletOriginal Medicationoxybutynin chloride 5 MG Oral Tablet *Reorder from [facility] for eRx and Interaction Alerts* 3 Active Warfarin Sodium 2.5 MG Oral Tablet ORAL warfarin sodium 2.5 MG Oral TabletOriginal Medicationwarfarin sodium 2.5 MG Oral Tablet *Reorder from [facility] for eRx and Interaction Alerts* 3 Active acetaminophen 300 MG / hydrocodone bitartrate 5 MG Oral Tablet ORAL acetaminophen 300 MG / hydrocodone bitartrate 5 MG Oral TabletOriginal Medicationacetaminophen 300 MG / hydrocodone bitartrate 5 MG Oral Tablet *Reorder from [facility] for eRx and Interaction Alerts* 3 Active Pravastatin Sodium 10 MG Oral Tablet ORAL pravastatin sodium 10 MG Oral TabletOriginal Medicationpravastatin sodium 10 MG Oral Tablet *Reorder from [facility] for eRx and Interaction Alerts* 05/01/201 3 Active Vital Signs Height 65.00 in 07/11/2023 Weight 187 lbs 07/11/2023 BMI 31.12 kg/m2 07/11/2023 Height-cm 165.10 cm 07/11/2023 Weight-kg 84.82 kg 07/11/2023 Encounters Encounter Location Date Provider Diagnosis [facility] [address] [place], [place] [id number] 07/11/2023 ORTIZ MAGUIRE Localized edema R60.0 ; [...] * ENMA MATOS HDOB:1940 (82 yo F)Acc No.[id number]:07/11/2023 Patient: Kourtney AGUILARCOMPA ENMA Provider: Brandon MAGUIRE :1940 A ge:82 Y S ex:Female Date:07/11/2023 Address:[address] [place], [place] [id number] Subjective: * Chief Complaints: * 1 . [...] Patient denies c hest pain, history of [place], irregular heartbeat. M usculoskeletal: Patient complains of [...] chloride 5 MG Oral Tablet *Reorder from [facility] for eRx and Interaction Alerts*, Taking Spironolactone 25 MG Oral Tablet ORAL , Notes to Pharmacist: spironolactone 25 MG Oral TabletOriginal Medicationspironolactone 25 MG Oral Tablet *Reorder from [facility] for eRx and Interaction Alerts*, Taking Warfarin Sodium 2.5 MG Oral Tablet ORAL , Notes to Pharmacist: warfarin sodium 2.5 MG Oral TabletOriginal Medicationwarfarin sodium 2.5 MG Oral Tablet *Reorder from [facility] for eRx and Interaction Alerts*, Taking Pravastatin Sodium 10 MG Oral Tablet ORAL , Notes to Pharmacist: pravastatin sodium 10 MG Oral TabletOriginal Medicationpravastatin sodium 10 MG Oral Tablet *Reorder from [facility] for eRx and Interaction Alerts*, Taking acetaminophen 300 MG / hydrocodone bitartrate 5 MG Oral Tablet ORAL , Notes to Pharmacist: acetaminophen 300 MG / hydrocodone bitartrate 5 MG Oral TabletOriginal Medicationacetaminophen 300 MG / hydrocodone bitartrate 5 MG Oral Tablet *Reorder from [facility] for eRx and Interaction Alerts* Objective: [...] rn * Billing Information: * Visit Code: 04414 Office Visit, Est Pt., Level 3. * Procedure Codes: * N CLEANER Sign off status: Completed true * Provider: Brandon MAGUIRE Date: 0 07/11/2023 Generated for Nilesh lyles/Taco/Loretta on: 0 10/08/2024 [...]
--- OUTSIDE RECORDS SUMMARY | 2024-10-08 09:32 | XMS_ITS ---
Author Organization [facility] Address [address] [place], [place] [address] Care Team Providers Care Employee'S Representative Name Role Phone RALF LAU Unavailable [phone] Sixto Lund Unavailable Unavailable ORTIZ MAGUIRE Unavailable [phone] REASON FOR VISIT ft swollen and painful Medications Medication SIG (Take, Route, Frequency, Duration) Notes Start Date End Date Status Spironolactone 25 MG Oral Tablet ORAL spironolactone 25 MG Oral TabletOriginal Medicationspironolactone 25 MG Oral Tablet *Reorder from [facility] for eRx and Interaction Alerts* 3 Active Warfarin Sodium 2.5 MG Oral Tablet ORAL warfarin sodium 2.5 MG Oral TabletOriginal Medicationwarfarin sodium 2.5 MG Oral Tablet *Reorder from [facility] for eRx and Interaction Alerts* 3 Active Pravastatin Sodium 10 MG Oral Tablet ORAL pravastatin sodium 10 MG Oral TabletOriginal Medicationpravastatin sodium 10 MG Oral Tablet *Reorder from [facility] for eRx and Interaction Alerts* 3 Active acetaminophen 300 MG / hydrocodone bitartrate 5 MG Oral Tablet ORAL acetaminophen 300 MG / hydrocodone bitartrate 5 MG Oral TabletOriginal Medicationacetaminophen 300 MG / hydrocodone bitartrate 5 MG Oral Tablet *Reorder from [facility] for eRx and Interaction Alerts* 3 Active Oxybutynin Chloride 5 MG Oral Tablet ORAL oxybutynin chloride 5 MG Oral TabletOriginal Medicationoxybutynin chloride 5 MG Oral Tablet *Reorder from [facility] for eRx and Interaction Alerts* 3 Active Vital Signs Height 65.00 in 11/14/2023 Weight 187 lbs 11/14/2023 BMI 31.12 kg/m2 11/14/2023 Height-cm 165.10 cm 11/14/2023 Weight-kg 84.82 kg 11/14/2023 Encounters Encounter Location Date Provider Diagnosis [facility] [address] [place], [place] [id number] 11/14/2023 ORTIZ MAGUIRE Localized edema R60.0 ; [...] * ENMA MATOS HDOB:1940 (83 yo F)Acc No.[id number]:11/14/2023 Patient: Kourtney ENMA CAREY Merlin Provider: Brandon MAGUIRE :1940 A ge:82 Y S ex:Female Date:11/14/2023 Address:[address] [place], [place] [id number] Subjective: * Chief Complaints: * 1 . [...] Patient denies c hest pain, history of [place], irregular heartbeat. M usculoskeletal: Patient complains of [...] chloride 5 MG Oral Tablet *Reorder from [facility] for eRx and Interaction Alerts*, Taking Spironolactone 25 MG Oral Tablet ORAL , Notes to Pharmacist: spironolactone 25 MG Oral TabletOriginal Medicationspironolactone 25 MG Oral Tablet *Reorder from [facility] for eRx and Interaction Alerts*, Taking Warfarin Sodium 2.5 MG Oral Tablet ORAL , Notes to Pharmacist: warfarin sodium 2.5 MG Oral TabletOriginal Medicationwarfarin sodium 2.5 MG Oral Tablet *Reorder from [facility] for eRx and Interaction Alerts*, Taking Pravastatin Sodium 10 MG Oral Tablet ORAL , Notes to Pharmacist: pravastatin sodium 10 MG Oral TabletOriginal Medicationpravastatin sodium 10 MG Oral Tablet *Reorder from [facility] for eRx and Interaction Alerts*, Taking acetaminophen 300 MG / hydrocodone bitartrate 5 MG Oral Tablet ORAL , Notes to Pharmacist: acetaminophen 300 MG / hydrocodone bitartrate 5 MG Oral TabletOriginal Medicationacetaminophen 300 MG / hydrocodone bitartrate 5 MG Oral Tablet *Reorder from [facility] for eRx and Interaction Alerts* Objective: [...] rn * Billing Information: * Visit Code: 21415 Office Visit, Est Pt., Level 3. * Procedure Codes: * Sign off status: Completed true * Provider: Brandon MAGUIRE Date: 0 11/14/2023 Generated for Nilesh lyles/Taco/Loretta on: 0 10/08/2024 09:32 AM CDT History and Physical Notes * [...]
[2024-10-08 10:26] LABS: Alanine Aminotransferase 18 U/L (14-59); Albumin Level 3.4 g/dL (3.4-5.0); Alkaline Phosphatase 83 U/L (46-116); Anion Gap 8 mmol/L (4-12); Aspartate Amino Transferase 15 U/L (15-37); Bilirubin,Total 0.6 mg/dL (0.00-1.00); Blood Urea Nitrogen 17 mg/dL (7-18); Calcium 9.3 mg/dL (8.5-10.1); Carbon Dioxide 28 mmol/L (21-32); Chloride 106 mmol/L (98-108); Cholesterol 186 mg/dL (0-200); Estimated Glomerular Filt Rate > 60; Glucose 103 mg/dL (70-99); HDL Direct 49 mg/dL (40-60); LDL Cholesterol Calculated 117 mg/dL (<130); Osmolality Calculated 295 mOsm/kg (285-295); Potassium 4.8 mmol/L (3.5-5.1); Sodium 142 mmol/L (136-145); Triglycerides 99 mg/dL (0-150)
[2024-10-08 13:46] LABS: Add Urine Microscopic? YES; Appearance Urine Clear (Clear); Bilirubin Urine Negative (Negative); Blood Urine Negative (Negative); Color Urine Light Yellow (Yellow); Glucose Urine UA Negative (Negative); Ketones Urine Negative (Negative); Leukocyte Esterase Ur 1+ (Negative); Nitrate Urine Positive (Negative); Protein Urine Negative (Negative); Specific Grav Ur 1.015 (1.010-1.020); Urobilinogen Urine 0.2 mg/dL (0.2-1.0); pH Urine 6.5 (5.0-8.0)
[2024-10-08 13:55] LABS: Bacteria Urine 3+ /hpf; RBC Urine None seen /hpf (0-2); Squamous Epithelial Cell Urine Rare /hpf (Few); WBC Urine 16-20 /hpf (0-3)
== END 2024-10-08 09:07 | disposition home or self-care (01) ==
LOC: CHSLAB 09:07
PROVIDERS: PCP Nurse Practitioner Family; Visit Provider Nurse Practitioner Family
DX: I10 Essential (primary) hypertension (principal); E87.6 Hypokalemia; E87.0 Hyperosmolality and hypernatremia; N39.0 Urinary tract infection, site not specified
CPT/HCPCS: 36415; 80053; 80061; 81001

== ENCOUNTER 2024-11-11 11:07 | Outpatient (CLI) | payer MEDICARE, SELFPAY ==
--- NOTE | ~2024-11-11 | XR_ITS ---
Left foot Technique: AP, oblique, and lateral views were obtained. Clinical History: Other specified soft tissue disorder Findings: Generalized osteopenia present. Suspected transverse nondisplaced acute fracture of the pro ximal first metatarsal shaft.. Probable degenerative changes of the interphalangeal joints of the toe s. There is prominent dorsal soft tissue swelling of the forefoot. Impression: Suspected subtle transverse nondisplaced fracture the first metatarsal shaft. Degenerative changes of the interphalangeal joints of the toes. Dominant dorsal soft tissue swelling of the forefoot. Reviewed, dictated and finalized at location M. Impression: Suspected subtle transverse nondisplaced fracture the first metatarsal shaft. Degenerative changes of the interphalangeal joints of the toes. Dominant dorsal soft tissue swelling of the forefoot.
--- OUTSIDE RECORDS SUMMARY | 2024-11-11 11:40 | XMS_ITS | Referral Summary ---
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 (Primary Dx); Primary hypertension; Mixed hyperlipidemia; Nonrheumatic aortic valve stenosis from Last 3 Months Allergies Active Allergy Reactions Criticality Noted Date Comments Jono Inhibitors Unknown 09/06/2021 Amoxicillin Unknown 09/07/2021 Aspirin Unknown 09/06/2021 Ciprofloxacin Unknown 09/06/2021 Fesoterodine Unknown 09/06/2021 Prednisone Propoxyphene-Acetaminophen Mtqcnbs-Mbv-Lyj Reductase Inhibitors Muscle pain Medium 05/20/2017 Sulfamethoxazole-Trimethoprim Unknown 2021 Medications aspirin 81 mg tablet Take 1 tablet (81 mg total) by mouth daily Active rosuvastatin (CRESTOR) 10 mg tabletIndicatio ns:Dyslipidemia Take 1 tablet (10 mg total) by mouth daily 90 tablet 2 Active nitroglycerin (NITROSTAT) 0.4 mg SL tabletIndicatio ns:Coronary artery disease of yocha dehe artery of yocha dehe heart with stable angina pectoris Place 1 tablet (0.4 mg total) under the tongue every 5 (five) minutes as needed for chest pain May repeat dose q 5 min, up to 3 doses total 25 tablet 3 3 Active potassium chloride ER 20 mEq CR tablet Take 1 tablet (20 mEq total) by mouth daily 3 Active magnesium oxide 400 mg magnesium capsule Take 2 capsules by mouth daily Active benazepriL (LOTENSIN) 10 mg tablet Take 1 tablet (10 mg total) by mouth daily 3 Active apixaban (ELIQUIS ORAL) Take 2.5 mg by mouth 2 (two) times a day Active cholecalciferol (VITAMIN D-3) 50,000 unit capsule Take 1 capsule (50,000 Units total) by mouth once a week 4 Active HYDROcodone-jono taminophen (NORCO) 5-325 mg per [...] (5 mg total) by mouth daily Active furosemide (LASIX) 20 mg tabletIndicatio ns:Abdominal swelling Take 1 tablet (20 mg total) by mouth daily 30 tablet 6 5 10/28/19 26 Active furosemide (LASIX) 20 mg tabletIndicatio ns:Abdominal swelling Take 1 tablet (20 mg total) by mouth daily 30 tablet 6 3 10/28/19 25 Discontinu ed(Reorder ) Active Problems Problem Noted Date Diagnosed Date [...] (09/29/2016): Anxiety Coronary artery disease invo lving yocha dehe coronary artery of yocha dehe heart without angina pectoris 05/17/2015 Overview (09/29/2016): Coronary artery disease involving yocha dehe coronary artery of yocha dehe heart with other form of angina pectoris [...] on file Legal Sex 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 Gender Identity Not on file Sexual Orientation Not on file Last Filed Vital Signs Vital Sign Reading Time Taken Comments Blood Pressure 130/60 10/19/2024 10:03 AM CDT Pulse 79 10/19/2024 10:03 AM CDT Temperature 36.1 C (97 F) 07/27/2020 9:10 AM REGISTRAR MUSEUM Respiratory Rate 16 05/28/2019 10:10 AM REGISTRAR MUSEUM Oxygen Saturation 96% 10/19/2024 10:03 AM CDT Inhaled Oxygen Concentration - - Weight 62.6 kg (138 lb) 10/19/2024 10:03 AM CDT Height 165.1 cm (5' 5 ) 10/19/2024 10:03 AM CDT Body Mass Index 22.96 10/19/2024 10:03 AM CDT Plan of Treatment Not on file Insurance MEDICARE MEDICARE BLUE CROSS MEDICARE SUPPLEMENT Care Teams Bleach Chlorinator Relationship Specialty Start Date End Date Jose A Lakhani DO [address] [place] [address] PCP - General Family Medicine 05/15/23
--- OUTSIDE RECORDS SUMMARY | 2024-11-11 11:40 | XMS_ITS | Clinical Summary ---
Author Organization [facility] [address] Address [address] [place] [address] Care Team Providers Care Double End Production Grinder Name Role Phone WendylongJose A cameron Primary Care Provider Allergies Active Allergy Reactions Criticality Noted Date Comments Jono Inhibitors Unknown 09/06/2021 Amoxicillin Unknown 09/07/2021 Aspirin Unknown 09/06/2021 Ciprofloxacin Unknown 09/06/2021 Fesoterodine Unknown 09/06/2021 Prednisone Propoxyphene-Acetaminophen Huhcera-Jsr-Dds Reductase Inhibitors Muscle pain Medium 05/20/2017 Sulfamethoxazole-Trimethoprim Unknown 2021 Medications aspirin 81 mg tablet Take 1 tablet (81 mg total) by mouth daily Active rosuvastatin (CRESTOR) 10 mg tabletIndicatio ns:Dyslipidemia Take 1 tablet (10 mg total) by mouth daily 90 tablet 2 2 Active nitroglycerin (NITROSTAT) 0.4 mg SL tabletIndicatio ns:Coronary artery disease of craig artery of craig heart with stable angina pectoris Place 1 [...] (09/29/2016): Anxiety Coronary artery disease invo lving craig coronary artery of craig heart without angina pectoris 05/17/2015 Overview (09/29/2016): Coronary artery disease involving craig coronary artery of craig heart with other form of angina pectoris [...] care 10/19/2024 10:00 AM CDT Office Visit [facility] Cardiology [address] [place] [address] Sung Payan MD Coronary artery disease involving craig coronary artery of craig heart without angina pectoris (Primary Dx); Primary hypertension; Mixed hyperlipidemia; Nonrheumatic aortic valve stenosis from Last 3 Months Surgical History Surgery [...] on file Legal Sex 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 CHANNEL PROGRAM MANAGER Gender Identity Not on file Sexual Orientation Not on file Obstetrics History Last Filed Vital Signs Vital Sign Reading Time Taken Comments Blood Pressure 130/60 10/19/2024 10:03 AM CDT Pulse 79 10/19/2024 10:03 AM CDT Temperature 36.1 C (97 F) 07/27/2020 9:10 AM CHANNEL PROGRAM MANAGER Respiratory Rate 16 05/28/2019 10:10 AM CHANNEL PROGRAM MANAGER Oxygen Saturation 96% 10/19/2024 10:03 AM CDT Inhaled Oxygen Concentration - - Weight 62.6 kg (138 lb) 10/19/2024 10:03 AM CDT Height 165.1 cm (5' 5 ) 10/19/2024 10:03 AM CDT Body Mass Index 22.96 10/19/2024 10:03 AM CDT Plan of Treatment Health Maintenance Due Date Last Done Comments Osteoporosis Screening-Bone Density Scan 1940 Hepatitis B Screening 1958 Zoster Vaccine (1 of 2) 1988 Well Visit 65+ 11/17/2003 Depression Screening 05/28/2020 05/28/2019 Fall Risk Assessment 03/20/2022 03/20/2021 Covid-19 Vaccine (4 - 2023-2 5 season) 2024 06/16/2021, 09/25/2020, 08/28/2020 Influenza Vaccine (Season Ended) 2025 03/01/2022, 04/29/2020, 04/21/2019, Additional history exists DTaP/Tdap/Td Vaccine (2 - Td or Tdap) 11/30/2033 12/01/2023 Pneumococcal vaccine 65+ Completed 01/19/2022, 06/2014 Insurance MEDICARE MEDICARE [facility] MEDICARE SUPPLEMENT Care Teams Double End Production Grinder Relationship Specialty Start Date End Date Jose A Lakhani DO [address] [place] [address] PCP - General Family Medicine 05/15/23
[2024-11-11 12:20] LABS: Add Urine Microscopic? NO; Appearance Urine Clear (Clear); Bilirubin Urine Negative (Negative); Blood Urine Negative (Negative); Color Urine Light Yellow (Yellow); Glucose Urine UA Negative (Negative); Ketones Urine Negative (Negative); Leukocyte Esterase Ur Negative LEU/UL (Negative); Nitrate Urine Negative (Negative); Protein Urine Negative (Negative); Urobilinogen Urine 0.2 mg/dL (0.2-1.0)
[2024-11-11 13:04] LABS: Alanine Aminotransferase 17 U/L (6-35); Albumin Level 4.1 g/dL (3.5-5.1); Alkaline Phosphatase 98 U/L (38-126); Anion Gap 7 mmol/L (4-12); Aspartate Amino Transferase 28 U/L (14-36); Bilirubin,Total 0.7 mg/dL (0.2-1.3); Blood Urea Nitrogen 17 mg/dL (7-17); Calcium 9.2 mg/dL (8.4-10.2); Carbon Dioxide 26 mmol/L (22-30); Chloride 106 mmol/L (98-107); Estimated Glomerular Filt Rate > 60; Glucose 116 mg/dL (65-110); Osmolality Calculated 290 mOsm/kg (285-295); Potassium 4.8 mmol/L (3.4-5.0); Sodium 139 mmol/L (137-145); Total Protein 7.2 g/dL (6.3-8.2)
== END 2024-11-11 11:08 | disposition home or self-care (01) ==
LOC: CHSLAB 11:08
PROVIDERS: PCP Family Medicine; Visit Provider Nurse Practitioner Family
DX: N39.0 Urinary tract infection, site not specified (principal); E87.6 Hypokalemia; E87.1 Hypo-osmolality and hyponatremia; M79.89 Other specified soft tissue disorders
CPT/HCPCS: 36415; 73630; 80053; 81003

== ENCOUNTER 2024-12-04 09:11 | Outpatient (CLI) | payer MEDICARE, SELFPAY ==
--- NOTE | ~2024-12-04 | XR_ITS ---
XR foot LT min 3V 12/04/2024 09:35 Indication: Left foot pain Procedure: 4 views left foot Comparison: 11/11/2024 Findings: Osteopenia. Lisfranc joint intact. There is mild polyarticular osteoarthritis. Lisfranc dom nt intact. Demineralization limits evaluation for subtle nondisplaced fractures. No gross fracture or malalignment. Moderate diffuse soft tissue swelling. Impression: 1: No acute fracture. 2: Polyarticular osteoarthritis. Reviewed, dictated and finalized at location B. Impression: 1: No acute fracture. 2: Polyarticular osteoarthritis.
--- OUTSIDE RECORDS SUMMARY | 2024-12-04 09:17 | XMS_ITS | Clinical Summary ---
Author Organization [facility] [address] [place] [address] Care Team Providers Care Veneer Stapler Name Role Phone JossieJose A cameron Primary Care Provider Allergies Active Allergy Reactions Criticality Noted Date Comments Jono Inhibitors Unknown 09/06/2021 Amoxicillin Unknown 09/07/2021 Aspirin Unknown 09/06/2021 Ciprofloxacin Unknown 09/06/2021 Fesoterodine Unknown 09/06/2021 Prednisone Propoxyphene-Acetaminophen Olcrkmo-Hhi-Umi Reductase Inhibitors Muscle pain Medium 05/20/2017 Sulfamethoxazole-Trimethoprim Unknown 2021 Medications aspirin 81 mg tablet Take 1 tablet (81 mg total) by mouth daily Active rosuvastatin (CRESTOR) 10 mg tabletIndicatio ns:Dyslipidemia Take 1 tablet (10 mg total) by mouth daily 90 tablet 2 12/21/2021 Active nitroglycerin (NITROSTAT) 0.4 mg SL tabletIndicatio ns:Coronary artery disease of kletsel dehe wintun artery of kletsel dehe wintun heart with stable angina pectoris Place 1 tablet (0.4 mg total) under the tongue every 5 (five) minutes as needed for chest pain May repeat dose q 5 min, up to 3 doses total 25 tablet 3 02/01/2023 Active potassium chloride ER 20 mEq CR [...] total) by mouth daily 30 tablet 6 10/27/2024 10/28/19 26 Active Active Problems Problem Noted Date Diagnosed [...] (09/29/2016): Anxiety Coronary artery disease invo lving kletsel dehe wintun coronary artery of kletsel dehe wintun heart without angina pectoris 05/17/2015 Overview (09/29/2016): Coronary artery disease involving kletsel dehe wintun coronary artery of kletsel dehe wintun heart with other form of angina pectoris [...] care 10/19/2024 10:00 AM CDT Office Visit 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 Gender Identity Not on file Sexual Orientation Not on file Obstetrics History Last Filed Vital Signs Vital Sign Reading Time Taken Comments Blood Pressure 130/60 10/19/2024 10:03 AM CDT Pulse 79 10/19/2024 10:03 AM CDT Temperature 36.1 C (97 F) 07/27/2020 9:10 AM BURNER OPERATOR Respiratory Rate 16 05/28/2019 10:10 AM BURNER OPERATOR Oxygen Saturation 96% 10/19/2024 10:03 AM CDT Inhaled Oxygen Concentration - - Weight 62.6 kg (138 lb) 10/19/2024 10:03 AM CDT Height 165.1 cm (5' 5) 10/19/2024 10:03 AM CDT Body Mass Index 22.96 10/19/2024 10:03 AM CDT Plan of Treatment Health Maintenance Due Date Last Done Comments Hepatitis B Screening 1958 Zoster Vaccine (1 of 2) 1988 Well Visit 65+ 11/17/2003 Depression Screening 05/28/2020 05/28/2019 Fall Risk Assessment 03/20/2022 03/20/2021 Covid-19 Vaccine ( - 2023-2 5 season) 2024 06/16/2021, 09/25/2020, 08/28/2020 Influenza Vaccine (Season Ended) 2025 03/01/2022, 04/29/2020, 04/21/2019, Additional history exists DTaP/Tdap/Td Vaccine (2 - Td or Tdap) 11/30/2033 12/01/2023 Pneumococcal vaccine 65+ Completed 01/19/2022, 1006/2014 Insurance MEDICARE MEDICARE [facility] MEDICARE SUPPLEMENT Care Teams Veneer Stapler Relationship Specialty Start Date End Date Jose A Lakhani DO [address] [place] [address] PCP - General Family Medicine 05/15/23
--- OUTSIDE RECORDS SUMMARY | 2024-12-04 09:17 | XMS_ITS | Referral Summary ---
Author Organization [place] [address] [facility] [address] Address [address] [place] [address] Care Team Providers Care Wastewater Analyst Lab Analyst Name Role Phone oJse A Lakhani Primary Care Provider Encounters Date Type Department Care Team Description 10/30/2024 3:23 PM CDT - 10/30/2024 11:59 PM CDT Hospital Encounter [facility] Discharge Disposition: Discharge to home or self care 10/19/2024 10:00 AM CDT Office Visit [facility] Cardiology [address] [place] [address] Sung Payan MD Coronary artery disease involving minto coronary artery of minto heart without angina pectoris (Primary Dx); Primary hypertension; Mixed hyperlipidemia; Nonrheumatic aortic valve stenosis from Last 3 Months Allergies Active Allergy Reactions Criticality Noted Date Comments Jono Inhibitors Unknown 09/06/2021 Amoxicillin Unknown 09/07/2021 Aspirin Unknown 09/06/2021 Ciprofloxacin Unknown 09/06/2021 Fesoterodine Unknown 09/06/2021 Prednisone Propoxyphene-Acetaminophen Tcldyuj-Ydd-Cgs Reductase Inhibitors Muscle pain Medium 05/20/2017 Sulfamethoxazole-Trimethoprim Unknown 2021 Medications aspirin 81 mg tablet Take 1 tablet (81 mg total) by mouth daily Active rosuvastatin (CRESTOR) 10 mg tabletIndicatio ns:Dyslipidemia Take 1 tablet (10 mg total) by mouth daily 90 tablet 2 12/21/2021 Active nitroglycerin (NITROSTAT) 0.4 mg SL tabletIndicatio ns:Coronary artery disease of minto artery of minto heart with stable angina pectoris Place 1 [...] (09/29/2016): Anxiety Coronary artery disease invo lving minto coronary artery of minto heart without angina pectoris 05/17/2015 Overview (09/29/2016): Coronary artery disease involving minto coronary artery of minto heart with other form of angina pectoris [...] on file Legal Sex 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 DIRECTOR OF RESEARCH Gender Identity Not on file Sexual Orientation Not on file Last Filed Vital Signs Vital Sign Reading Time Taken Comments Blood Pressure 130/60 10/19/2024 10:03 AM CDT Pulse 79 10/19/2024 10:03 AM CDT Temperature 36.1 C (97 F) 07/27/2020 9:10 AM DIRECTOR OF RESEARCH Respiratory Rate 16 05/28/2019 10:10 AM DIRECTOR OF RESEARCH Oxygen Saturation 96% 10/19/2024 10:03 AM CDT Inhaled Oxygen Concentration - - Weight 62.6 kg (138 lb) 10/19/2024 10:03 AM CDT Height 165.1 cm (5' 5) 10/19/2024 10:03 AM CDT Body Mass Index 22.96 10/19/2024 10:03 AM CDT Plan of Treatment Not on file Insurance MEDICARE MEDICARE BLUE CROSS MEDICARE SUPPLEMENT Member Subscriber Plan / Payer (Ef fective 2013-Present) Name:Lnida Garza Relation to Subscriber:Self Name:Linda Garza Payer ID:[id number] Type:COMMERCIAL Address: [facility] [address] [place] [id number] Care Teams Wastewater Analyst Lab Analyst Relationship Specialty Start Date End Date Jose A Lakhani DO [address] [place] [address] PCP - General Family Medicine 05/15/23
--- OUTSIDE RECORDS SUMMARY | 2024-12-04 09:17 | XMS_ITS | Data Portability ---
Author Organization [facility], [address] [place] [address] [place]rology ([place]) Address [address] [address] Care Team Providers Care Tape Cutter Name Role Phone SUKHI SAUNDERS Primary Care Provider [phone] Assessment Encounter Date Assessment Date Assessment LastModified [...] view No observ ation record ed. nadya Ct Only - Ct Radiology [address] [place] [address], [address], 01/09/2024 11:26:55 01/09/20 24 12/25/2023 CT, brain , w/o contr ast No observ ation record ed. nadya Not Available 2023 11:27:50 Result Notes None recorded. Problems Name Problem SNOMED Code Status Onset Date Resolution Date Notes Provider Name and Address Organization Details Recorded Time Pain of left knee joint 877415951004621 Active 2023 Jake Vickers MD [address] [place] [address], [phone], [facility] 4 10:41:10 Pain of right knee joint 264018241526422 Active 2023 Jake Vickers MD [address] [place] [address], [phone], [facility] 4 10:41:22 Problem Notes None recorded. Medical Equipment None Reported. Allergies Allergen ID Allergen Name Allergen Category Reaction Reaction Severity Criticality Documentation Date Start Date Code Code System Note Provider Name and Address Organization Details Recorded Time 819382 prednison e medicatio n Not available Not available Not available 07/22/20232016 8640 RxNorm Not Available [facility] 4 21:41:59 285801 Acetamino phen / Propoxyph mary medicatio n Not available Not available Not available 07/22/20232016 80767 RxNorm Not Available [facility] 4 21:41:59 Medications Name Sig Start Date Stop Date [...] SNOMED-CT Code Diagnosis ICD10 Code Diagnosis Note [id number] Jake Vickers MD [facility] ([place]) [address] [place] [address] 12/24/2023 09:23:19 12/24/2023 14:59:46 Pain of left knee joint [id number] 07046 M25.562 Additional diagnosis detail: Pain, joint, knee, left Pain of ri ght knee joint [id number] 13921 M25.561 Additional diagnosis detail: Pain, joint, knee, right Health Concerns Section Related Observation LastModified by Organization Detai ls LastModified Time None Recorded Concern Status LastModified by Organization Details LastModified Time None Recorded Advance Directives Directive None Recorded Payers Insurance Date Sequence Insurance Name Policy Number Policy Eduardo Covered Member ID Eduardo Member ID Guarantor Name 12/23/2023 2 [place]) [id number] Ricky Graza [id number] Linda Garza 12/24/2023 1 [place] Linda Garza [id number] Linda Garza OBGyn Episode No OBEpisode recorded.
--- OUTSIDE RECORDS SUMMARY | 2024-12-04 09:17 | XMS_ITS | Patient Health Record ---
Author Organization [facility] Address [address] [place], [place] [id number] Care Team Providers Care Layout Former Name Role Phone RALF LAU Unavailable [phone] Sixto Lund Unavailable Unavailable Allergies Allergen (clinical drug ingredient) Drug/Non Drug Allergy documented on EMR Reaction Allergy Type Onset Date Status predniSONE Unknown Drug Allergy 10/22/2012 activ e Reason For Referral No Information Medications Medication SIG (Take, Route, Frequency, Duration) Notes Start Date End Date Status Spironolactone 25 MG Oral Tablet ORAL spironolactone 25 MG Oral TabletOriginal Medicationspironolactone 25 MG Oral Tablet *Reorder from XO1 for eRx and Interaction Alerts* 3 Active Warfarin Sodium 2.5 MG Oral Tablet ORAL warfarin sodium 2.5 MG Oral TabletOriginal Medicationwarfarin sodium 2.5 MG Oral Tablet *Reorder from XO1 for eRx and Interaction Alerts* 3 Active Pravastatin Sodium 10 MG Oral Tablet ORAL pravastatin sodium 10 MG Oral TabletOriginal Medicationpravastatin sodium 10 MG Oral Tablet *Reorder from [employer] for eRx and Interaction Alerts* 3 Active acetaminophen 300 MG / hydrocodone bitartrate 5 MG Oral Tablet ORAL acetaminophen 300 MG / hydrocodone bitartrate 5 MG Oral TabletOriginal Medicationacetaminophen 300 MG / hydrocodone bitartrate 5 MG Oral Tablet *Reorder from [employer] for eRx and Interaction Alerts* 3 Active oxyBUTYnin Chloride 5 MG Oral Tablet ORAL oxybutynin chloride 5 MG Oral TabletOriginal Medicationoxybutynin chloride 5 MG Oral Tablet *Reorder from [employer] Solutionsan for eRx and Interaction Alerts* 3 Active Plan Of Treatment No Information Insurance Providers Payer Name Payer Address Payer Phone Subscriber Number Group Number Insured Name Patient Relationship to Insured Coverage Start Date Coverage End Date Medicare Part B [place] [address] [place] [address] [id number] ENMA MATOS Self - patient is the insured [facility] ([facility]) ATTN CLAIMS [address] [place] [address] [id number] ENMA MATOS Self - patient is the insured [facility] [address] [place], [place] [id number] ENMA MATOS Self - patient is the insured
== END 2024-12-04 09:12 | disposition home or self-care (01) ==
LOC: CHSIMG 09:13
PROVIDERS: PCP Family Medicine; Visit Provider Orthopaedic Surgery
DX: S92.312A Displaced fracture of first metatarsal bone, left foot, initial encounter for closed fracture (principal); M19.072 Primary osteoarthritis, left ankle and foot
CPT/HCPCS: 73630

== ENCOUNTER 2024-12-16 11:42 | Outpatient (CLI) | payer MEDICARE, SELFPAY ==
[2024-12-16 11:56] LABS: Basophils Absolute Auto 0.06 K/mm3 (0.00-0.10); Basophils Percent Auto 0.7 % (0.0-1.0); Eosinophils Absolute Auto 0.15 K/mm3 (0.02-0.50); Eosinophils Percent Auto 1.7 % (1.0-6.0); Hematocrit 44.5 % (35.0-42.0); Immature Granulocyte Absolute 0.03 K/mm3 (0.00-0.00); Immature Granulocyte Percent A 0.3 % (0.0-0.0); Lymphocytes Absolute Auto 2.53 K/mm3 (1.10-4.50); Lymphocytes Percent Auto 28.4 % (18.0-42.0); Mean Corpuscular HGB Conc 31.5 g/dL (32-36); Mean Corpuscular Hemoglobin 29.5 pg (27.0-31.0); Mean Corpuscular Volume 93.7 fL (78.0-102.0); Mean Platelet Volume 11.6 fl (9.2-11.8); Monocytes Absolute Auto 0.99 K/mm3 (0.10-0.90); Monocytes Percent Auto 11.1 % (2.0-11.0); Neutrophils Absolute Auto 5.16 K/mm3 (1.70-7.20); Neutrophils Percent Auto 57.8 % (50.0-70.0); Platelet Count Result 199 K/mm3 (150-420); Red Blood Count 4.75 M/mm3 (4.20-5.40); Red Cell Distribution Width 12.8 % (11.6-14.4); White Blood Count 8.9 K/mm3 (4.8-10.8)
[2024-12-16 11:58] LABS: Add Urine Microscopic? YES; Appearance Urine Clear (Clear); Bilirubin Urine Negative (Negative); Blood Urine Negative (Negative); Color Urine Light Yellow (Yellow); Glucose Urine UA Negative (Negative); Ketones Urine Negative (Negative); Leukocyte Esterase Ur 2+ LEU/UL (Negative); Nitrate Urine Positive (Negative); Protein Urine Negative (Negative); Specific Grav Ur 1.025 (1.010-1.020); Urobilinogen Urine 0.2 mg/dL (0.2-1.0)
[2024-12-16 12:03] LABS: Bacteria Urine 3+ /hpf; RBC Urine None seen /hpf (0-2); Squamous Epithelial Cell Urine Few /hpf (Few); WBC Urine >100 /hpf (0-3)
[2024-12-16 12:17] LABS: Alanine Aminotransferase 41 U/L (6-35); Alkaline Phosphatase 77 U/L (38-126); Anion Gap 5 mmol/L (4-12); Aspartate Amino Transferase 35 U/L (14-36); Bilirubin,Total 0.6 mg/dL (0.2-1.3); Blood Urea Nitrogen 26 mg/dL (7-17); Calcium 9.3 mg/dL (8.4-10.2); Carbon Dioxide 26 mmol/L (22-30); Chloride 110 mmol/L (98-107); Estimated Glomerular Filt Rate 60; Glucose 107 mg/dL (65-110); Osmolality Calculated 296 mOsm/kg (285-295); Potassium 4.8 mmol/L (3.4-5.0); Sodium 141 mmol/L (137-145)
== END 2024-12-16 11:43 | disposition home or self-care (01) ==
LOC: CHSLAB 11:42
PROVIDERS: PCP Family Medicine; Visit Provider Nurse Practitioner Family
DX: I89.0 Lymphedema, not elsewhere classified (principal); E87.6 Hypokalemia; E87.1 Hypo-osmolality and hyponatremia; R39.9 Unspecified symptoms and signs involving the genitourinary system
CPT/HCPCS: 36415; 80053; 81001; 85025; 87077; 87086; 87088; 87186

== ENCOUNTER 2025-02-04 10:20 | Outpatient (CLI) | payer MEDICARE, SELFPAY ==
--- OUTSIDE RECORDS SUMMARY | 2025-02-04 10:34 | XMS_ITS | Clinical Summary ---
Author Organization 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 Encounters Date Type Department Care Team Description 01/05/2025 12:39 PM CDT - 01/05/2025 11:59 PM CDT Hospital Encounter [facility] [address] [place] [address] Jake Macdonald MD Hankins, Nichole K, OT Discharge Disposition: Home or Self Care (Routine Discharge) 01/05/2025 Travel 12/29/2024 3:00 PM CDT - 12/29/2024 11:59 PM CDT Hospital Encounter [facility] [address] [place] [address] Jake Macdonald MD Hankins, Nichole K, OT Discharge Disposition: Home or Self Care (Routine Discharge) 12/29/2024 Travel from Last 3 Months Social History Tobacco Use Types Packs/Day Years Used Date Smoking Tobacco: Never Smokeless Tobacco: Never [facility] Utilities Answer Date Recorded In the past 12 months has [facility] [employer], gas, oil, or water [employer] threatened to shut off services in your [...] place to sleep or slept in a [facility] (including now)? No 05/27/2023 Comments No Sex and Gender Information Value Date Recorded Sex Assigned at Not on file Legal Sex Female 8:54 PM CDT Gender Identity Not on file Sexual Orientation Not on file Last Filed Vital Signs Vital Sign Reading Time Taken Comments Blood Pressure 132/70 07/26/2023 12:50 PM [employer] Pulse 73 07/26/2023 12:50 PM [employer] Temperature 36.7 C (98 F) 05/30/2023 9:00 AM INS[employer]OR [employer] C[employer]ILITIES Respiratory Rate 16 07/26/2023 12:5 0 PM [employer] Oxygen Saturation 97% 07/26/2023 12: 50 PM [employer] Inhaled Oxygen Concentration - - Weight 64.3 kg (141 lb 12.8 oz) 024 12:50 PM [employer] Height 165.1 cm (5' 5) 07/26/2023 12:5 0 PM [employer] Body Mass Index 23.6 07/26/2023 12:50 PM [employer] Plan of Treatment Health Maintenance Due Date Last Done Comments ASCVD LDL 1940 ASCVD Statin 1940 Zoster Vaccines (1 of 2) 1988 Annual Medicare Wellness Visit 11/17/2003 RSV Immunization or 60+ Years (1 - 1-dose 75+ series) 2013 COVID-19 Vaccine ( - season) 2024 12/01/2021, 06/16/2021, 09/25/2020, Additional history [...] age to complete this topic Insurance MEDICARE [facility] Advance Directives * Full Code (Latest Code Status on File) Date Activated Date Inactivated Comments 05/27/2023 2:16 PM 05/30/2023 1:22 PM * Full Code Date Activated Date Inactivated Comments 08/31/2021 2:52 PM 09/02/2021 1:52 PM Care Teams School Community Relations Coordinator Relationship Specialty Start Date End Date Jose A Lakhani DO [address] [place] [address] PCP - General FAMILY PRACTICE 05/24/23
--- OUTSIDE RECORDS SUMMARY | 2025-02-04 10:34 | XMS_ITS | Patient Health Record ---
Author Organization [facility] Address [address] [place], [place] [id number] Care Team Providers Care Manager Pharmaceutical Name Role Phone RALF LAU Unavailable [phone] Sixto Lund Unavailable Unavailable Allergies Allergen (clinical [...] Medicationspironolactone 25 MG Oral Tablet *Reorder from SideTour for eRx and Interaction Alerts* 3 Active Warfarin Sodium 2.5 MG Oral Tablet ORAL warfarin sodium 2.5 MG Oral TabletOriginal Medicationwarfarin sodium 2.5 MG Oral Tablet *Reorder from SideTour for eRx and Interaction Alerts* 3 Active Pravastatin Sodium 10 MG Oral Tablet ORAL pravastatin sodium 10 MG Oral TabletOriginal Medicationpravastatin sodium 10 MG Oral Tablet *Reorder from CollecteMeter for eRx and Interaction Alerts* 3 Active acetaminophen 300 MG / hydrocodone bitartrate 5 MG Oral Tablet ORAL acetaminophen 300 MG / hydrocodone bitartrate 5 MG Oral TabletOriginal Medicationacetaminophen 300 MG / hydrocodone bitartrate 5 MG Oral Tablet *Reorder from CollecteMeter for eRx and Interaction Alerts* 3 Active oxyBUTYnin Chloride 5 MG Oral Tablet ORAL oxybutynin chloride 5 MG Oral TabletOriginal Medicationoxybutynin chloride 5 MG Oral Tablet *Reorder from Collectan for eRx and Interaction Alerts* 3 Active Plan Of Treatment No Information Insurance Providers Payer Name Payer Address Payer Phone Subscriber Number Group Number Insured Name Patient Relationship to Insured Coverage Start Date Coverage End Date Medicare Part B [place] [address] [place] [address] [id number] ENMA MATOS Self - patient is the insured [facility] ([facility] ATTN CLAIMS [address] [place] [address] [id number] ENMA MATOS Self - patient is the insured [facility] [address] [place], [place] [phone] [id number] ENMA MATOS Self - patient is the insured
--- OUTSIDE RECORDS SUMMARY | 2025-02-04 10:35 | XMS_ITS | Encounter Summary ---
Author Organization [facility] Address [facility] [place] [address] Care Team Providers Care Picket Labor Union Name Role Phone None, Provider Primary Care Provider Sixto Reeves MD Primary Care Provider [phone] Jose A Lakhani DO Primary Care Provider [phone] Encounter Details Date Type Department Care Team (Late st Contact Info) Description 11/29/2018 Abstract SFL CONVERSION [address] [place] [address] , Generic Conversion, Social History Tobacco Use [...] Rule Out 08/31/2021 08/31/2021 09/01/2021 7:49 PM PILOT BOAT DECKHAND documented as of this encounter Care Teams Picket [employer] Union Relationship Specialty Start Date End Date None, Provider, PCP - General 08/31/21 08/31/21 Sixto Lund MD [address] [place] [id number] PCP - General INTERNAL MEDICINE 09/01/21 05/23/23 Jose A Lakhani DO [address] [place] [address] PCP - General FAMILY PRACTICE 05/24/23 documented as of this encounter
--- OUTSIDE RECORDS SUMMARY | 2025-02-04 10:35 | XMS_ITS | Clinical Summary ---
Author Organization [facility] [address] Address [address] [place] [address] Care Team Providers Care Fuel Cell Systems Engineer Name Role Phone JossieJose A cameron Primary Care Provider Allergies Active Allergy Reactions Criticality Noted Date Comments Jono Inhibitors Unknown 09/06/2021 Amoxicillin Unknown 09/07/2021 Aspirin Unknown 09/06/2021 Ciprofloxacin Unknown 09/06/2021 Fesoterodine Unknown 09/06/2021 Prednisone Propoxyphene-Acetaminophen Mefgjdc-Pfe-Ipv Reductase Inhibitors Muscle pain Medium 05/20/2017 Sulfamethoxazole-Trimethoprim Unknown 2021 Medications aspirin 81 mg tablet Take 1 tablet (81 mg total) by mouth daily Active rosuvastatin (CRESTOR) 10 mg tabletIndicatio ns:Dyslipidemia Take 1 tablet (10 mg total) by mouth daily 90 tablet 2 12/21/2021 Active nitroglycerin (NITROSTAT) 0.4 mg SL tabletIndicatio ns:Coronary artery disease of [place] artery of [place] heart with stable angina pectoris Place 1 [...] (09/29/2016): Anxiety Coronary artery disease invo lving [place] coronary artery of [place] heart without angina pectoris 05/17/2015 Overview (09/29/2016): 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 of angina pectoris [...] on file 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 Gender Identity Not on file Sexual Orientation Not on file Obstetrics History Last Filed Vital Signs Vital Sign Reading Time Taken Comments Blood Pressure 130/60 10/19/2024 10:03 AM CDT Pulse 79 10/19/2024 10:03 AM CDT Temperature 36.1 C (97 F) 07/27/2020 9:10 AM SWITCHBOARD INSTALLER Respiratory Rate 16 05/28/2019 10:10 AM SWITCHBOARD INSTALLER Oxygen Saturation 96% 10/19/2024 10:03 AM CDT [...] 2024 06/16/2021, 09/25/2020, 08/28/2020 Influenza Vaccine (#1) 2025 , 04/29/2020, 04/21/2019, Additional history exists DTaP/Tdap/Td Vaccine (2 - Td or Tdap) 11/30/2033 12/01/2023 Pneumococcal vaccine 65+ Completed 01/19/2022, 1006/2014 Insurance MEDICARE [facility] MEDICARE SUPPLEMENT Care Teams Fuel Cell Systems Engineer Relationship Specialty Start Date End Date Jose A Lakhani DO [address] [place] [address] PCP - General Family Medicine 05/15/23
[2025-02-04 11:00] LABS: Add Urine Microscopic? YES; Appearance Urine Clear (Clear); Glucose Urine UA Negative (Negative); Leukocyte Esterase Ur 3+ LEU/UL (Negative); Nitrate Urine Positive (Negative); Specific Grav Ur 1.010 (1.010-1.020)
[2025-02-04 11:15] LABS: Alanine Aminotransferase 22 U/L (6-35); Albumin Level 4.6 g/dL (3.5-5.1); Alkaline Phosphatase 80 U/L (38-126); Anion Gap 8 mmol/L (4-12); Aspartate Amino Transferase 33 U/L (14-36); Bilirubin,Total 1.0 mg/dL (0.2-1.3); Blood Urea Nitrogen 15 mg/dL (7-17); Calcium 9.9 mg/dL (8.4-10.2); Carbon Dioxide 29 mmol/L (22-30); Chloride 103 mmol/L (98-107); Estimated Glomerular Filt Rate > 60; Glucose 114 mg/dL (65-110); Magnesium 1.8 mg/dL (1.6-2.3); Osmolality Calculated 291 mOsm/kg (285-295); Potassium 4.6 mmol/L (3.4-5.0); Sodium 140 mmol/L (137-145); Total Protein 7.7 g/dL (6.3-8.2)
[2025-02-04 11:29] LABS: Hemoglobin A1C 5.8 % (<5.7)
== END 2025-02-04 10:21 | disposition home or self-care (01) ==
LOC: CHSLAB 10:22
PROVIDERS: PCP Nurse Practitioner Family; Visit Provider Nurse Practitioner Family
DX: R73.03 Prediabetes (principal); E55.9 Vitamin D deficiency, unspecified; N39.0 Urinary tract infection, site not specified; E87.1 Hypo-osmolality and hyponatremia; E83.42 Hypomagnesemia
CPT/HCPCS: 36415; 80053; 81001; 82306; 83036; 83735; 87086; 87186

== ENCOUNTER 2025-02-23 13:05 | Outpatient (CLI) | payer MEDICARE, SELFPAY ==
--- OUTSIDE RECORDS SUMMARY | 2025-02-23 13:19 | XMS_ITS | Clinical Summary ---
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 Encounters Date Type Department Care Team Description 01/05/2025 12:39 PM CDT - 01/05/2025 11:59 PM CDT Hospital Encounter [facility] [address] [place] [id number] Jake Macdonald MD Hankins, Nichole K, OT Discharge Disposition: Home or Self Care (Routine Discharge) 01/05/2025 Travel 12/29/2024 3:00 PM CDT - 12/29/2024 11:59 PM CDT Hospital Encounter [facility] [address] [place] [address] Jake Macdonald MD Hankins, Nichole K, OT Discharge Disposition: Home or Self Care (Routine Discharge) 12/29/2024 Travel from Last 3 Months Social History Tobacco Use Types Packs/Day Years Used Date Smoking Tobacco: Never Smokeless Tobacco: Never [facility] Utilities Answer Date Recorded In the past [address] [facility] [employer] gas, oil, or water [employer] threatened to shut off services in your [...] Comments Blood Pressure 132/70 07/26/2023 12:50 PM CENSUS ENUMERATOR Pulse 73 07/26/2023 12:50 PM CENSUS ENUMERATOR Temperature 36.7 C (98 F) 05/30/2023 9:00 AM CENSUS ENUMERATOR Respiratory Rate 16 07/26/2023 12:5 0 PM CENSUS ENUMERATOR Oxygen Saturation 97% 07/26/2023 12: 50 PM CENSUS ENUMERATOR Inhaled Oxygen Concentration - - Weight 64.3 kg (141 lb 12.8 oz) 024 12:50 PM CENSUS ENUMERATOR Height 165.1 cm (5' 5) 07/26/2023 12:5 0 PM CENSUS ENUMERATOR Body Mass Index 23.6 07/26/2023 12:50 PM CENSUS ENUMERATOR Plan of Treatment Health Maintenance Due Date [...] age to complete this topic Insurance MEDICARE [facility] Advance Directives * Full Code (Latest Code Status on File) Date Activated Date Inactivated Comments 05/27/2023 2:16 PM 05/30/2023 1:22 PM * Full Code Date Activated Date Inactivated Comments 08/31/2021 2:52 PM 09/02/2021 1:52 PM Care Teams Manager Print Relationship Specialty Start Date End Date Jose A Lakhani DO [address] [place] [address] PCP - General FAMILY PRACTICE 05/24/23
--- OUTSIDE RECORDS SUMMARY | 2025-02-23 13:19 | XMS_ITS | Encounter Summary ---
Author Organization [facility] Address [facility] [place] [address] Care Team Providers Care Cat Scan Technologist Name Role Phone None, Provider Primary Care Provider Sixto Reeves MD Primary Care Provider [phone] Jose A Lakhani DO Primary Care Provider [phone] Encounter Details Date Type Department Care Team (Late st Contact Info) Description 11/29/2018 Abstract SFL CONVERSION [address] [place] [address] , Generic Conversion, Social History Tobacco Use [...] Rule Out 08/31/2021 08/31/2021 09/01/2021 7:49 PM VASCULAR TECHNOLOGIST SONOGRAPHER documented as of this encounter Care Teams Cat Scan Technologist Relationship Specialty Start Date End Date None, Provider, PCP - General 08/31/21 08/31/21 Sixto Lund MD [address] [place] [phone] PCP - General INTERNAL MEDICINE 09/01/21 05/23/23 Jose A Lakhani DO [address] [place] [address] PCP - General FAMILY PRACTICE 05/24/23 documented as of this encounter
--- OUTSIDE RECORDS SUMMARY | 2025-02-23 13:19 | XMS_ITS | Clinical Summary ---
Author Organization [facility] [address] Address [address] [place] [address] Care Team Providers Care Marketing Traffic Coordinator Name Role Phone Jose A Lakhani Primary Care Provider Allergies Active Allergy Reactions Criticality Noted Date Comments Jono Inhibitors Unknown 09/06/2021 Amoxicillin Unknown 09/07/2021 Aspirin Unknown 09/06/2021 Ciprofloxacin Unknown 09/06/2021 Fesoterodine Unknown 09/06/2021 Prednisone Propoxyphene-Acetaminophen Ubpbusn-Jsr-Tbn Reductase Inhibitors Muscle pain Medium 05/20/2017 Sulfamethoxazole-Trimethoprim Unknown 2021 Medications aspirin 81 mg tablet Take 1 tablet (81 mg total) by mouth daily Active rosuvastatin (CRESTOR) 10 mg tabletIndicatio ns:Dyslipidemia Take 1 tablet (10 mg total) by mouth daily 90 tablet 2 12/21/2021 Active nitroglycerin (NITROSTAT) 0.4 mg SL tabletIndicatio ns:Coronary artery disease of [place] artery of [place] heart with stable angina pectoris Place 1 [...] (09/29/2016): Anxiety Coronary artery disease invo lving [place] coronary artery of [place] heart without angina pectoris 05/17/2015 Overview (09/29/2016): Coronary artery disease involving [place] coronary artery of [place] heart with other form of angina pectoris [...] on file Legal 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 Gender Identity Not on file Sexual Orientation Not on file Obstetrics History Last Filed Vital Signs Vital Sign Reading Time Taken Comments Blood Pressure 130/60 10/19/2024 10:03 AM CDT Pulse 79 10/19/2024 10:03 AM CDT Temperature 36.1 C (97 F) 07/27/2020 9:10 AM METER ATTENDANT Respiratory Rate 16 05/28/2019 10:10 AM METER ATTENDANT Oxygen Saturation 96% 10/19/2024 10:03 AM CDT [...] Fall Risk Assessment 03/20/2022 03/20/2021 Covid-19 Vaccine (2024-07 6 season) 2025 06/16/2021, 09/25/2020, 08/28/2020 Influenza Vaccine (#1) 2025 , 04/29/2020, 04/21/2019, Additional history exists DTaP/Tdap/Td Vaccine (2 - Td or Tdap) 11/30/2033 12/01/2023 Pneumococcal vaccine 65+ Completed 01/19/2022, 1006/2014 Insurance MEDICARE [facility] MEDICARE SUPPLEMENT Care Teams Marketing Traffic Coordinator Relationship Specialty Start Date End Date Jose A Lakhani DO [address] [place] [address] PCP - General Family Medicine 05/15/23
[2025-02-23 13:20] LABS: Add Urine Microscopic? YES; Appearance Urine Clear (Clear); Glucose Urine UA Negative (Negative); Leukocyte Esterase Ur Trace LEU/UL (Negative); Nitrate Urine Negative (Negative); Specific Grav Ur 1.020 (1.010-1.020)
== END 2025-02-23 13:06 | disposition home or self-care (01) ==
LOC: CHSLAB 13:06
PROVIDERS: PCP Family Medicine; Visit Provider Nurse Practitioner Family
DX: N39.0 Urinary tract infection, site not specified (principal)
CPT/HCPCS: 81001

== ENCOUNTER 2025-03-11 10:04 | Outpatient (CLI) | payer MEDICARE, SELFPAY ==
[2025-03-11 10:17] LABS: Hematocrit 40.1 % (35.0-42.0); Hemoglobin 12.8 g/dL (11.7-13.8); Mean Corpuscular HGB Conc 31.9 g/dL (32-36); Mean Corpuscular Hemoglobin 29.3 pg (27.0-31.0); Mean Corpuscular Volume 91.8 fL (78.0-102.0); Platelet Count Result 192 K/mm3 (150-420); Red Blood Count 4.37 M/mm3 (4.20-5.40); White Blood Count 7.1 K/mm3 (4.8-10.8)
[2025-03-11 10:28] LABS: Add Urine Microscopic? NO; Appearance Urine Clear (Clear); Glucose Urine UA Negative (Negative); Leukocyte Esterase Ur Negative LEU/UL (Negative); Nitrate Urine Negative (Negative); Specific Grav Ur 1.010 (1.010-1.020)
[2025-03-11 10:32] LABS: Band Neutrophils Percent 0 % (0-6); Basophils Absolute Manual 0.07 K/mm3 (0-0.1); Basophils Percent Manual 1 % (0-1); Eosinophils Absolute Manual 0.42 K/mm3 (0.02-0.50); Eosinophils Percent Manual 6 % (1-6); Lymphocytes Absolute Manual 2.76 K/mm3 (1.1-4.5); Lymphocytes Percent Manual 39 % (18-44); Monocytes Absolute Manual 0.99 K/mm3 (0.1-0.90); Monocytes Percent Manual 14 % (3-9); Neutrophils Absolute Manual 2.84 K/mm3 (1.3-6.7); Neutrophils Percent Manual 40 % (46-73); Total Cells Counted 100
--- OUTSIDE RECORDS SUMMARY | 2025-03-11 10:42 | XMS_ITS | Clinical Summary ---
Author Organization [facility] Address [facility] [place] [address] Care Team Providers Care Single Spindle Screw Machine Operator Name Role Phone Jose A Lakhani DO Primary Care Provider [phone] Allergies Active Allergy Reactions Criticality Noted Date [...] Chronic anticoagulation Coronary artery disease invo lving [place] coronary artery of 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 Encounters Date Type Department Care Team Description 01/05/2025 12:39 PM CDT - 01/05/2025 11:59 PM CDT Hospital Encounter [facility] [address] [place] [address] Jake Macdonald MD Hankins, Nichole K, OT Discharge Disposition: Home or Self Care (Routine Discharge) 01/05/2025 Travel 12/29/2024 3:00 PM CDT - 12/29/2024 11:59 PM CDT Hospital Encounter [facility] [address] [place] [address] Jake Macdonald MD Hankins, Nichole K, OT Discharge Disposition: Home or Self Care (Routine Discharge) 12/29/2024 Travel from Last 3 Months Social History Tobacco Use Types Packs/Day Years Used Date Smoking Tobacco: Never Smokeless Tobacco: Never [facility] Utilities Answer Date Recorded In the past [address] [facility] [employer], gas, oil, or water [employer] threatened to shut off services in your [...] place to sleep or slept in a halfway (including now)? No 05/27/2023 Comments No Sex and Gender Information Value Date Recorded Sex Assigned at Not on file Legal Sex Female 8:54 PM CDT Gender Identity Not on file Sexual Orientation Not on file Last Filed Vital Signs Vital Sign Reading Time Taken Comments Blood Pressure 132/70 07/26/2023 12:50 PM MOLDING FITTER Pulse 73 07/26/2023 12:50 PM MOLDING FITTER Temperature 36.7 C (98 F) 05/30/2023 9:00 AM MOLDING FITTER Respiratory Rate 16 07/26/2023 12:5 0 PM MOLDING FITTER Oxygen Saturation 97% 07/26/2023 12: 50 PM MOLDING FITTER Inhaled Oxygen Concentration - - Weight 64.3 kg (141 lb 12.8 oz) 024 12:50 PM MOLDING FITTER Height 165.1 cm (5' 5) 07/26/2023 12:5 0 PM MOLDING FITTER Body Mass Index 23.6 07/26/2023 12:50 PM MOLDING FITTER Plan of Treatment Health Maintenance Due Date Last Done Comments ASCVD LDL 1938 ASCVD Statin 1938 Zoster Vaccines (1 of 2) 1988 Annual Medicare Wellness Visit 11/17/2003 RSV Immunization or 60+ Years (1 - 1-dose 75+ series) 2013 COVID-19 Vaccine ( - season) 2025 12/01/2021, 06/16/2021, 09/25/2020, Additional history exists DTaP, [...] age to complete this topic Insurance MEDICARE [facility] Advance Directives * Full Code (Latest Code Status on File) Date Activated Date Inactivated Comments 05/27/2023 2:16 PM 05/30/2023 1:22 PM * Full Code Date Activated Date Inactivated Comments 08/31/2021 2:52 PM 09/02/2021 1:52 PM Care Teams Single Spindle Screw Machine Operator Relationship Specialty Start Date End Date Jose A Lakhani DO [address] [place] [address] PCP - General FAMILY PRACTICE 05/24/23
--- OUTSIDE RECORDS SUMMARY | 2025-03-11 10:42 | XMS_ITS | Patient Health Record ---
Author Organization [facility] Address [address] [place], [place] [id number] Care Team Providers Care Rivet Maker Name Role Phone RALF LAU Unavailable [phone] Sixto Lund Unavailable Unavailable Allergies Allergen (clinical [...] Medicationspironolactone 25 MG Oral Tablet *Reorder from EXTRABANCA for eRx and Interaction Alerts* 3 Active Warfarin Sodium 2.5 MG Oral Tablet ORAL warfarin sodium 2.5 MG Oral TabletOriginal Medicationwarfarin sodium 2.5 MG Oral Tablet *Reorder from EXTRABANCA for eRx and Interaction Alerts* 3 Active Pravastatin Sodium 10 MG Oral Tablet ORAL pravastatin sodium 10 MG Oral TabletOriginal Medicationpravastatin sodium 10 MG Oral Tablet *Reorder from WishabiCrowdStreet for eRx and Interaction Alerts* 3 Active acetaminophen 300 MG / hydrocodone bitartrate 5 MG Oral Tablet ORAL acetaminophen 300 MG / hydrocodone bitartrate 5 MG Oral TabletOriginal Medicationacetaminophen 300 MG / hydrocodone bitartrate 5 MG Oral Tablet *Reorder from [employer]abiCrowdStreet for eRx and Interaction Alerts* 3 Active oxyBUTYnin Chloride 5 MG Oral Tablet ORAL oxybutynin chloride 5 MG Oral TabletOriginal Medicationoxybutynin chloride 5 MG Oral Tablet *Reorder from Wishabian for eRx and Interaction Alerts* 3 Active Plan Of Treatment No Information Insurance Providers Payer Name Payer Address Payer Phone Subscriber Number Group Number Insured Name Patient Relationship to Insured Coverage Start Date Coverage End Date Medicare Part B [place] [address] [place] [address] [id number] ENMA MATOS Self - patient is the insured [facility] ATTN CLAIMS [address] [place] [address] [id number] ENMA MATOS Self - patient is the insured [facility] [address] [place], [place] [phone] [id number] ENMA MATOS Self - patient is the insured
--- OUTSIDE RECORDS SUMMARY | 2025-03-11 10:43 | XMS_ITS | Encounter Summary ---
Author Organization [facility] Address [address] [place] [address] Care Team Providers Care Coordinator Of Online Programs Name Role Phone Jose A Lakhani DO Primary Care Provider Encounter Details Date Type Department Care Team (Late st Contact Info) Description 05/27/2023 Orders Only [facility] Health Information Management [address] [place] [address] Scanning, Provider Social History Tobacco Use Types Packs/Day Years Used Date Smoking Tobacco: Never Smokeless Tobacco: Never Alcohol Use Standard Drinks/Week Comments Yes 0 (1 standard drink = 0.6 oz pur e alcohol) PHQ-2 Answer Date Recorded PHQ-2 Score 1 05/28/2019 Comments Unknown Sex and Gender Information Value Date Recorded Sex Assigned at Not on file Legal Sex 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 Gender Identity Not on file Sexual Orientation Not on file documented as of this encounter Plan of Treatment Not on file documented as of this encounter Procedures Procedure Name Priority Date/Time Associated Diagnosis Comments SCAN - RADIOLOGY/IMAGING 05/27/2023 documented in this encounter Results * SCAN - RADIOLOGY/IMAGING (05/27/2023) Anatomical Region Laterality Modality Other us Provider Scanning Final Result documented in this encounter Visit Diagnoses Not on filedocumented in this encounter Care Teams Coordinator Of Online Programs Relationship Specialty Start Date End Date Jose A Lakhani DO [address] [place] [address] PCP - General Family Medicine 05/15/23 documented as of this encounter
--- OUTSIDE RECORDS SUMMARY | 2025-03-11 10:43 | XMS_ITS | Clinical Summary ---
Author Organization [facility] [address] Address [address] [place] [address] Care Team Providers Care Catechist Name Role Phone Jose A Lakhani Primary Care Provider Allergies Active Allergy Reactions Criticality Noted Date Comments Jono Inhibitors Unknown 09/06/2021 Amoxicillin Unknown 09/07/2021 Aspirin Unknown 09/06/2021 Ciprofloxacin Unknown 09/06/2021 Fesoterodine Unknown 09/06/2021 Prednisone Propoxyphene-Acetaminophen Bclrlml-Hrx-Woe Reductase Inhibitors Muscle pain Medium 05/20/2017 Sulfamethoxazole-Trimethoprim Unknown 2021 Medications aspirin 81 mg tablet Take 1 tablet (81 mg total) by mouth daily Active rosuvastatin (CRESTOR) 10 mg tabletIndicati ons:Dyslipidem ia Take 1 tablet (10 mg total) by mouth daily 90 tablet 2 2 Active nitroglycerin (NITROSTAT) 0.4 mg SL tabletIndicati ons:Coronary artery disease of [place] artery of [place] heart with stable angina pectoris Place 1 [...] mouth 2 (two) times a day Active cholecalcifero l (VITAMIN D-3) 50,000 unit capsule Take 1 capsule (50,000 Units total) by mouth once a week 4 Active HYDROcodone-ac etaminophen (NORCO) 5-325 mg per tablet Take by [...] mouth daily Active furosemide (LASIX) 20 mg tabletIndicati ons:Abdominal swelling TAKE 1 TABLET BY MOUTH EVERY DAY 90 tablet 2 5 Active furosemide (LASIX) 20 mg tabletIndicati ons:Abdominal swelling Take 1 tablet (20 mg total) by mouth daily 30 tablet 6 5 025 Discontinued Active Problems Problem Noted Date Diagnosed Date [...] (09/29/2016): Anxiety Coronary artery disease invo lving [place] coronary artery of [place] heart without angina pectoris 05/17/2015 Overview (09/29/2016): Coronary artery disease involving [place] coronary artery of [place] heart with other form of angina pectoris [...] on file Legal Sex 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 HOT BOX CHECKER Gender Identity Not on file Sexual Orientation Not on file Obstetrics History Last Filed Vital Signs Vital Sign Reading Time Taken Comments Blood Pressure 130/60 10/19/2024 10:03 AM CDT Pulse 79 10/19/2024 10:03 AM CDT Temperature 36.1 C (97 F) 07/27/2020 9:10 AM HOT BOX CHECKER Respiratory Rate 16 05/28/2019 10:10 AM HOT BOX CHECKER Oxygen Saturation 96% 10/19/2024 10:03 AM CDT [...] Fall Risk Assessment 03/20/2022 03/20/2021 Covid-19 Vaccine (2024-2 6 season) 2025 06/16/2021, 09/25/2020, 08/28/2020 Influenza Vaccine (#1) 2025 , 04/29/2020, 04/21/2019, Additional history exists DTaP/Tdap/Td Vaccine (2 - Td or Tdap) 11/30/2033 12/01/2023 Pneumococcal vaccine 65+ Completed 01/19/2022, 06/2014 Insurance MEDICARE MEDICARE [facility] MEDICARE SUPPLEMENT Care Teams Catechist Relationship Specialty Start Date End Date Jose A Lakhani DO [address] [place] [address] PCP - General Family Medicine 05/15/23
--- OUTSIDE RECORDS SUMMARY | 2025-03-11 10:43 | XMS_ITS | Encounter Summary ---
Author Organization [facility] Address [facility] [place] [address] Care Team Providers Care Helpdesk Specialist Name Role Phone None, Provider Primary Care Provider Sixto Reeves MD Primary Care Provider [phone] Jose A Lakhani DO Primary Care Provider [phone] Encounter Details Date Type Department Care Team (Late st Contact Info) Description 11/29/2018 Abstract SFL CONVERSION [address] [place] [address] , Generic Conversion, Social History Tobacco Use [...] Rule Out 08/31/2021 08/31/2021 09/01/2021 7:49 PM ADVERTISING CONSULTANT documented as of this encounter Care Teams Helpdesk Specialist Relationship Specialty Start Date End Date None, Provider, PCP - General 08/31/21 08/31/21 Sixto Lund MD [address] [place] [phone] PCP - General INTERNAL MEDICINE 09/01/21 05/23/23 Jose A Lakhani DO [address] [place] [address] PCP - General FAMILY PRACTICE 05/24/23 documented as of this encounter
[2025-03-11 10:49] LABS: Alanine Aminotransferase 14 U/L (6-35); Albumin Level 4.2 g/dL (3.5-5.1); Alkaline Phosphatase 71 U/L (38-126); Anion Gap 10 mmol/L (4-12); Aspartate Amino Transferase 27 U/L (14-36); Bilirubin,Total 0.7 mg/dL (0.2-1.3); Blood Urea Nitrogen 19 mg/dL (7-17); Calcium 9.9 mg/dL (8.4-10.2); Carbon Dioxide 28 mmol/L (22-30); Chloride 102 mmol/L (98-107); Estimated Glomerular Filt Rate 55; Glucose 105 mg/dL (65-110); Osmolality Calculated 292 mOsm/kg (285-295); Potassium 5.2 mmol/L (3.4-5.0); Sodium 140 mmol/L (137-145); Total Protein 7.8 g/dL (6.3-8.2)
== END 2025-03-11 10:05 | disposition home or self-care (01) ==
LOC: CHSLAB 10:06
PROVIDERS: PCP Family Medicine; Visit Provider Nurse Practitioner Family
DX: R74.8 Abnormal levels of other serum enzymes (principal); R42 Dizziness and giddiness
CPT/HCPCS: 36415; 80053; 81003; 85025

== ENCOUNTER 2025-03-23 09:38 | Outpatient (CLI) | payer MEDICARE, SELFPAY ==
--- OUTSIDE RECORDS SUMMARY | 2025-03-23 10:20 | XMS_ITS | Clinical Summary ---
Author Organization [facility] [place] [address] Address [address] [place] [address] Care Team Providers Care Study Specialist Name Role Phone Jose A Lakhani Primary Care Provider Allergies Active Allergy Reactions Criticality Noted Date Comments Jono Inhibitors Unknown 09/06/2021 Amoxicillin Unknown 09/07/2021 Aspirin Unknown 09/06/2021 Ciprofloxacin Unknown 09/06/2021 Fesoterodine Unknown 09/06/2021 Prednisone Propoxyphene-Acetaminophen Jerxkno-Qaj-Igf Reductase Inhibitors Muscle pain Medium 05/20/2017 Sulfamethoxazole-Trimethoprim Unknown 2021 Medications aspirin 81 mg tablet Take 1 tablet (81 mg total) by mouth daily Active rosuvastatin (CRESTOR) 10 mg tabletIndicati ons:Dyslipidem ia Take 1 tablet (10 mg total) by mouth daily 90 tablet 2 2 Active nitroglycerin (NITROSTAT) 0.4 mg SL tabletIndicati ons:Coronary artery disease of [place] artery of [place] heart with stable angina pectoris Place 1 [...] (09/29/2016): Anxiety Coronary artery disease invo lving [place] coronary artery of [place] heart without angina pectoris 05/17/2015 Overview (09/29/2016): Coronary artery disease involving [place] coronary artery of [place] heart with other form of angina pectoris [...] on file Legal Sex 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 GENERATING Gender Identity Not on file Sexual Orientation Not on file Obstetrics History Last Filed Vital Signs Vital Sign Reading Time Taken Comments Blood Pressure 130/60 10/19/2024 10:03 AM CDT Pulse 79 10/19/2024 10:03 AM CDT Temperature 36.1 C (97 F) 07/27/2020 9:10 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 LENS GENERATING Respiratory Rate 16 05/28/2019 10:10 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 LENS GENERATING Oxygen Saturation 96% 10/19/2024 10:03 AM CDT [...] 65+ Completed 01/19/2022, 06/2014 Insurance MEDICARE MEDICARE [facility] MEDICARE SUPPLEMENT Care Teams Study Specialist Relationship Specialty Start Date End Date Jose A Lakhani DO [address] [place] [address] PCP - General Family Medicine 05/15/23
--- OUTSIDE RECORDS SUMMARY | 2025-03-23 10:20 | XMS_ITS | Patient Health Record ---
Author Organization [facility] Address [address] [place], [place] [address] Care Team Providers Care Paint Grinder Name Role Phone RALF LAU Unavailable [phone] Sixto Lund Unavailable Unavailable Allergies Allergen (clinical [...] Medicationspironolactone 25 MG Oral Tablet *Reorder from [facility] for eRx and Interaction Alerts* 3 Active Warfarin Sodium 2.5 MG Oral Tablet ORAL warfarin sodium 2.5 MG Oral TabletOriginal Medicationwarfarin sodium 2.5 MG Oral Tablet *Reorder from [facility] for eRx and Interaction Alerts* 3 Active Pravastatin Sodium 10 MG Oral Tablet ORAL pravastatin sodium 10 MG Oral TabletOriginal Medicationpravastatin sodium 10 MG Oral Tablet *Reorder from [facility] for eRx and Interaction Alerts* 3 Active acetaminophen 300 MG / hydrocodone bitartrate 5 MG Oral Tablet ORAL acetaminophen 300 MG / hydrocodone bitartrate 5 MG Oral TabletOriginal Medicationacetaminophen 300 MG / hydrocodone bitartrate 5 MG Oral Tablet *Reorder from [facility] for eRx and Interaction Alerts* 3 Active oxyBUTYnin Chloride 5 MG Oral Tablet ORAL oxybutynin chloride 5 MG Oral TabletOriginal Medicationoxybutynin chloride 5 MG Oral Tablet *Reorder from [facility] for eRx and Interaction Alerts* 3 Active Plan Of Treatment No Information Insurance Providers Payer Name Payer Address Payer Phone Subscriber Number Group Number Insured Name Patient Relationship to Insured Coverage Start Date Coverage End Date Medicare Part B [place] [address] [place] [address] [id number] ENMA MATOS Self - patient is the insured [facility] ([facility]) ATTN CLAIMS [address] [place] [address] [id number] ENMA MATOS Self - patient is the insured [facility] [address] [place], [place] [id number] ENMA MATOS Self - patient is the insured
--- OUTSIDE RECORDS SUMMARY | 2025-03-23 10:20 | XMS_ITS | Encounter Summary ---
Author Organization [facility] Address [address] [place] [address] Care Team Providers Care International Trade Teacher Name Role Phone Jose A Lakhani DO Primary Care Provider Encounter Details Date Type Department Care Team (Late st Contact Info) Description 05/27/2023 Orders Only [place] [place] Health Information Management [address] [place] [id number] Scanning, Provider Social History Tobacco Use Types Packs/Day Years Used Date Smoking Tobacco: Never Smokeless Tobacco: Never Alcohol Use Standard Drinks/Week Comments Yes 0 (1 standard drink = 0.6 oz pur e alcohol) PHQ-2 Answer Date Recorded PHQ-2 Score 1 05/28/2019 Comments Unknown Sex and Gender Information Value Date Recorded Sex Assigned at Not on file Legal Sex 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 POLISHER BRASS Gender Identity Not on file Sexual Orientation [...] on filedocumented in this encounter Care Teams International Trade Teacher Relationship Specialty Start Date End Date Jose A Lakhani DO [address] [place] [address] PCP - General Family Medicine 05/15/23 documented as of this encounter
[2025-03-23 10:35] LABS: Potassium 4.8 mmol/L (3.4-5.0)
== END 2025-03-23 09:39 | disposition home or self-care (01) ==
PROVIDERS: PCP Nurse Practitioner Family; Visit Provider Nurse Practitioner Family
DX: E87.5 Hyperkalemia (principal)
CPT/HCPCS: 36415; 84132

== ENCOUNTER 2025-04-08 12:38 | Outpatient (CLI) | payer MEDICARE, SELFPAY ==
[2025-04-08 12:57] LABS: Add Urine Microscopic? YES; Appearance Urine Cloudy (Clear); Glucose Urine UA Negative (Negative); Hematocrit 39.6 % (35.0-42.0); Hemoglobin 12.9 g/dL (11.7-13.8); Immature Granulocyte Percent A 0.4 % (0.0-0.0); Leukocyte Esterase Ur 2+ LEU/UL (Negative); Lymphocytes Absolute Auto 2.30 K/mm3 (1.10-4.50); Mean Corpuscular HGB Conc 32.6 g/dL (32-36); Mean Corpuscular Hemoglobin 29.6 pg (27.0-31.0); Mean Corpuscular Volume 90.8 fL (78.0-102.0); Nitrate Urine Negative (Negative); Nucleated Red Blood Cells Absolute Auto 0.00 K/mm3 (0.00-0.00); Nucleated Red Blood Cells Perc 0.0 % (0-0.0); Platelet Count Result 194 K/mm3 (150-420); Red Blood Count 4.36 M/mm3 (4.20-5.40); Specific Grav Ur 1.025 (1.010-1.020); White Blood Count 8.5 K/mm3 (4.8-10.8)
[2025-04-08 13:24] LABS: Alanine Aminotransferase 16 U/L (6-35); Albumin Level 4.1 g/dL (3.5-5.1); Alkaline Phosphatase 69 U/L (38-126); Anion Gap 7 mmol/L (4-12); Aspartate Amino Transferase 28 U/L (14-36); Bilirubin,Total 0.5 mg/dL (0.2-1.3); Blood Urea Nitrogen 14 mg/dL (7-17); Calcium 9.7 mg/dL (8.4-10.2); Carbon Dioxide 27 mmol/L (22-30); Chloride 107 mmol/L (98-107); Estimated Glomerular Filt Rate > 60; Glucose 105 mg/dL (65-110); Osmolality Calculated 292 mOsm/kg (285-295); Potassium 5.0 mmol/L (3.4-5.0); Sodium 141 mmol/L (137-145); Total Protein 7.6 g/dL (6.3-8.2)
--- OUTSIDE RECORDS SUMMARY | 2025-04-08 14:11 | XMS_ITS | Encounter Summary ---
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
--- OUTSIDE RECORDS SUMMARY | 2025-04-08 14:11 | XMS_ITS | Patient Health Record ---
Author Organization [facility] Address [address] [place], [place] [address] Care Team Providers Care Placement Secretary Name Role Phone RALF LAU Unavailable [phone] Sixto Lund Unavailable Unavailable Allergies Allergen (clinical [...] Medicationspironolactone 25 MG Oral Tablet *Reorder from [facility] for eRx and Interaction Alerts* 3 Active Warfarin Sodium 2.5 MG Oral Tablet ORAL warfarin sodium 2.5 MG Oral TabletOriginal Medicationwarfarin sodium 2.5 MG Oral Tablet *Reorder from [facility] for eRx and Interaction Alerts* 3 Active Pravastatin Sodium 10 MG Oral Tablet ORAL pravastatin sodium 10 MG Oral TabletOriginal Medicationpravastatin sodium 10 MG Oral Tablet *Reorder from [facility] for eRx and Interaction Alerts* 3 Active acetaminophen 300 MG / hydrocodone bitartrate 5 MG Oral Tablet ORAL acetaminophen 300 MG / hydrocodone bitartrate 5 MG Oral TabletOriginal Medicationacetaminophen 300 MG / hydrocodone bitartrate 5 MG Oral Tablet *Reorder from [facility] for eRx and Interaction Alerts* 3 Active oxyBUTYnin Chloride 5 MG Oral Tablet ORAL oxybutynin chloride 5 MG Oral TabletOriginal Medicationoxybutynin chloride 5 MG Oral Tablet *Reorder from [facility] for eRx and Interaction Alerts* 3 Active Plan Of Treatment No Information Insurance Providers Payer Name Payer Address Payer Phone Subscriber Number Group Number Insured Name Patient Relationship to Insured Coverage Start Date Coverage End Date Medicare Part B [place] [address] [place] [address] [id number] ENMA MATOS Self - patient is the insured [facility] ([facility]) ATTN CLAIMS [address] [place] [address] [id number] ENMA MATOS Self - patient is the insured [facility] [address] [place], [place] [phone] [id number] ENMA MATOS Self - patient is the insured
--- OUTSIDE RECORDS SUMMARY | 2025-04-08 14:11 | XMS_ITS | Clinical Summary ---
Author Organization [facility] [place] [address] Address [address] [place] [address] Care Team Providers Care Engineering Mgr Name Role Phone Jose A Lakhani Primary Care Provider Allergies Active Allergy Reactions Criticality Noted Date Comments Jono Inhibitors Unknown 09/06/2021 Amoxicillin Unknown 09/07/2021 Aspirin Unknown 09/06/2021 Ciprofloxacin Unknown 09/06/2021 Fesoterodine Unknown 09/06/2021 Prednisone Propoxyphene-Acetaminophen Ujsclgn-Ekm-Nah Reductase Inhibitors Muscle pain Medium 05/20/2017 Sulfamethoxazole-Trimethoprim Unknown 2021 Medications aspirin 81 mg tablet Take 1 tablet (81 mg total) by mouth daily Active rosuvastatin (CRESTOR) 10 mg tabletIndicatio ns:Dyslipidemia Take 1 tablet (10 mg total) by mouth daily 90 tablet 2 12/21/2021 Active nitroglycerin (NITROSTAT) 0.4 mg SL tabletIndicatio ns:Coronary artery disease of [place] artery of [place] heart with stable angina pectoris Place 1 [...] furosemide (LASIX) 20 mg tabletIndicatio ns:Abdominal swelling TAKE 1 TABLET BY MOUTH EVERY DAY 90 tablet 2 03/03/2025 Active Active Problems Problem Noted Date Diagnosed [...] (09/29/2016): Anxiety Coronary artery disease invo lving [place] coronary artery of [place] heart without angina pectoris 05/17/2015 Overview (09/29/2016): Coronary artery disease involving [place] coronary artery of [place] heart with other form of angina pectoris [...] on file 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 Gender Identity Not on file Sexual Orientation Not on file Obstetrics History Last Filed Vital Signs Vital Sign Reading Time Taken Comments Blood Pressure 130/60 10/19/2024 10:03 AM CDT Pulse 79 10/19/2024 10:03 AM CDT Temperature 36.1 C (97 F) 07/27/2020 9:10 AM TOLL TEST DESK WORKER Respiratory Rate 16 05/28/2019 10:10 AM TOLL TEST DESK WORKER Oxygen Saturation 96% 10/19/2024 10:03 AM CDT [...] Assessment 03/20/2022 03/20/2021 Covid-19 Vaccine (4 - 2024-2 6 season) 2025 06/16/2021, 09/25/2020, 08/28/2020 Influenza Vaccine (#1) 2025 , 04/29/2020, 04/21/2019, Additional history exists DTaP/Tdap/Td Vaccine (2 - Td or Tdap) 11/30/2033 12/01/2023 Pneumococcal vaccine 65+ Completed 01/19/2022, 06/2014 Insurance MEDICARE MEDICARE [facility] MEDICARE SUPPLEMENT Care Teams Engineering Mgr Relationship Specialty Start Date End Date Jose A Lakhani DO [address] [place] [address] PCP - General Family Medicine 05/15/23
--- OUTSIDE RECORDS SUMMARY | 2025-04-08 14:11 | XMS_ITS | Clinical Summary ---
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 Pulse 73 07/26/2023 12:50 PM ROOFING SUBCONTRACTOR Temperature 36.7 C (98 F) 05/30/2023 9:00 AM ROOFING SUBCONTRACTOR Respiratory Rate 16 07/26/2023 12:5 0 PM ROOFING SUBCONTRACTOR Oxygen Saturation 97% 07/26/2023 12: 50 PM ROOFING SUBCONTRACTOR Inhaled Oxygen Concentration - - Weight 64.3 kg (141 lb 12.8 oz) 024 12:50 PM ROOFING SUBCONTRACTOR Height 165.1 cm (5' 5) 07/26/2023 12:5 0 PM ROOFING SUBCONTRACTOR Body Mass Index 23.6 07/26/2023 12:50 PM ROOFING SUBCONTRACTOR Plan of Treatment Health Maintenance Due Date Last Done Comments ASCVD LDL 1938 ASCVD Statin 1938 Zoster Vaccines (1 of 2) 1988 Annual Medicare Wellness Visit 11/17/2003 RSV Immunization or 60+ Years (1 - 1-dose 75+ series) 2013 COVID-19 Vaccine ( season) 2025 12/01/2021, 06/16/2021, 09/25/2020, Additional history exists Influenza Adult (#1) 2025 03/01/2022, 04/29/2020, 04/21/2019, Additional history exists DTaP, Tdap and Td Vaccines (2 - Td or Tdap) 11/30/2033 12/01/2023 Pneumococcal Vaccine: 50+ Years Completed 01/19/2022, 03/24/2015 Hepatitis A Vaccines Aged Out No long er eligible based on patient's age to complete this topic Meningococcal B Vaccine Aged Out No l onger eligible based on patient's age to complete this topic Meningococcal Vaccine Aged Out No everett areli eligible based on patient's age to complete this topic RSV Immunizations Under 20 Months Aged Out No longer eligible based on patient's age to complete this topic Insurance [place]IC[place] [place] [id number] [facility] Advance Directives * Full Code (Latest Code Status on File) Date Activated Date Inactivated Comments 05/27/2023 2:16 PM 05/30/2023 1:22 PM * Full Code Date Activated Date Inactivated Comments 08/31/2021 2:52 PM 09/02/2021 1:52 PM Care Teams Head Of Human Resources Relationship Specialty Start Date End Date Jose A Lakhani DO [address] [place] [address] PCP - General FAMILY PRACTICE 05/24/23
== END 2025-04-08 12:39 | disposition home or self-care (01) ==
LOC: CHSLAB 12:39
PROVIDERS: PCP Family Medicine; Visit Provider Nurse Practitioner Family
DX: R82.90 Unspecified abnormal findings in urine (principal); R50.9 Fever, unspecified
CPT/HCPCS: 36415; 80053; 81001; 85025; 87040; 87086; 87186

== ENCOUNTER 2025-05-18 10:05 | Outpatient (CLI) | payer MEDICARE, SELFPAY ==
[2025-05-18 10:26] LABS: Add Urine Microscopic? YES; Glucose Urine UA Negative (Negative); Leukocyte Esterase Ur 2+ LEU/UL (Negative); Nitrate Urine Positive (Negative); Specific Grav Ur 1.025 (1.010-1.020)
[2025-05-18 10:42] LABS: Appearance Urine Turbid (Clear)
--- OUTSIDE RECORDS SUMMARY | 2025-05-18 11:13 | XMS_ITS | Patient Health Record ---
Author Organization [facility] Address [address] [place], [place] [address] Care Team Providers Care Earthmoving Plant Operator Name Role Phone RALF LAU Unavailable [phone] Sixto Lund Unavailable Unavailable Allergies Allergen (clinical [...] Medicationspironolactone 25 MG Oral Tablet *Reorder from [facility] for eRx and Interaction Alerts* 3 Active Warfarin Sodium 2.5 MG Oral Tablet ORAL warfarin sodium 2.5 MG Oral TabletOriginal Medicationwarfarin sodium 2.5 MG Oral Tablet *Reorder from [facility] for eRx and Interaction Alerts* 3 Active Pravastatin Sodium 10 MG Oral Tablet ORAL pravastatin sodium 10 MG Oral TabletOriginal Medicationpravastatin sodium 10 MG Oral Tablet *Reorder from [facility] for eRx and Interaction Alerts* 3 Active acetaminophen 300 MG / hydrocodone bitartrate 5 MG Oral Tablet ORAL acetaminophen 300 MG / hydrocodone bitartrate 5 MG Oral TabletOriginal Medicationacetaminophen 300 MG / hydrocodone bitartrate 5 MG Oral Tablet *Reorder from [facility] for eRx and Interaction Alerts* 3 Active oxyBUTYnin Chloride 5 MG Oral Tablet ORAL oxybutynin chloride 5 MG Oral TabletOriginal Medicationoxybutynin chloride 5 MG Oral Tablet *Reorder from [employer] for eRx and Interaction Alerts* 3 Active Social History Social History Additional Details Category Social Info Options Details Migrated Social History Migrated Social History History of tobacco use : , Smoking Status : Never smoked , Alcohol intake : Plan Of Treatment No Information Insurance Providers Payer Name Payer Address Payer Phone Subscriber Number Group Number Insured Name Patient Relationship to Insured Coverage Start Date Coverage End Date Medicare Part B [place] [address] [place] [address] [id number] ENMA MATOS Self - patient is the insured [facility] ([facility]) ATTN CLAIMS [address] [place] [address] [id number] ENMA MATOS Self - patient is the insured [facility] [address] [place], [place] [phone] [id number] ENMA MATOS Self - patient is the insured
--- OUTSIDE RECORDS SUMMARY | 2025-05-18 11:13 | XMS_ITS | Clinical Summary ---
Author Organization [facility] [place] [address] Address [address] [place] [address] Care Team Providers Care Long Term Name Role Phone Jose A Lakhani DO Primary Care Provider Allergies Active Allergy Reactions Criticality Noted Date Comments Jono Inhibitors Other (See comments) 09/06/2021 weakness Amoxicillin Hallucinations Medium 09/07/2021 Ciprofloxacin Muscle pain,Hallucinations Medium 09/06/2021 Fesoterodine Unknown 09/06/2021 Prednisone Hallucinations Medium Only noted with high dose use. Propoxyphene-Acetamino phen Anaphylaxis High Remprgo-Dga-Hox Reductase Inhibitors Muscle pain Medium 05/20/2017 Medications aspirin 81 mg tablet Take 1 tablet (81 mg total) by mouth daily Active rosuvastatin (CRESTOR) 10 mg tabletIndicatio ns:Dyslipidemia Take 1 tablet (10 mg total) by mouth daily 90 tablet 2 2 Active nitroglycerin (NITROSTAT) 0.4 mg SL tabletIndicatio ns:Coronary artery disease of [place] artery of [place] heart with stable angina pectoris Place 1 [...] 1000 MG ORALLY EVERY 8 HOURS Active amLODIPine (NORVASC) 5 mg tablet Take 1 tablet (5 mg total) by mouth daily Active furosemide (LASIX) 20 mg tabletIndicatio ns:Abdominal swelling TAKE 1 TABLET BY MOUTH EVERY DAY 90 tablet 2 5 Active ALPRAZolam (XANAX) 0.25 mg tablet Take 1 tablet (0.25 mg total) by mouth 5 Active nitrofurantoin (MACRODANTIN) 100 mg capsule Take 1 capsule (100 mg total) by mouth 2 (two) times a day Active clopidogreL (PLAVIX) 75 mg tabletIndicatio ns:myocardial infarction prevention,card iovascular disease Take 1 tablet (75 mg total) by mouth daily 30 tablet 11 5 05/13/20 26 Active traZODone (DESYREL) 100 mg tablet Take 1 tablet (100 mg total) by mouth nightly 05/11/20 25 Discontinu ed(Alterna te therapy) venlafaxine XR (EFFEXOR-XR) 37.5 mg 24 hr capsule TAKE 1 CAPSULE BY MOUTH AT BEDTIME WITH FOOD 05/11/20 25 Discontinu ed(Therapy completed) Active Problems Problem Noted Date Diagnosed Date CAD S/P percutaneous coronary angioplasty 2024 H/O syncope 10/10/2023 Nonrheumatic aortic valve stenosis [...] (09/29/2016): Anxiety Coronary artery disease invo lving [place] coronary artery of [place] heart without angina pectoris 05/17/2015 Overview (09/29/2016): Coronary artery disease involving [place] coronary artery of [place] heart with other form of angina pectoris Orthostatic hypotension 05/17/2015 Overview (09/29/2016): Orthostatic hypotension Primary hypertension 01/13/2014 Overview (09/29/2016): HTN (hypertension), benign Resolved Problems Problem Noted Date Diagnosed Date Resolved Date Dyslipidemia 08/10/2015 06/21/2021 Overview (09/29/2016): Mixed dyslipidemia Recurrent falls 05/17/2015 03/19/2017 Overview (09/29/2016): Frequent falls Encounters Date Type Department Care Team Description 05/13/2025 Telephone [facility] Cardiology [address] [place] [address] Roosevelt Payan MD 05/11/2025 9:30 AM ELECT EQUIP MAINT ENG - 05/11/2025 11:00 AM ELECT EQUIP MAINT ENG Surgery [facility] Cardiac Catheterization Lab [address] [place] [address] Roosevelt Payan MD CORONARY ANGIOGRAPHY [id number] 05/11/2025 7:15 AM ELECT EQUIP MAINT ENG - 05/12/2025 1:05 PM ELECT EQUIP MAINT ENG Hospital Encounter [facility] [id number] [place] [address] Roosevelt Payan MD Nonrheumatic aortic valve stenosis Discharge Disposition: Discharge to home or self care 04/30/2025 Telephone [facility] Cardiology [address] [place] [address] Roosevelt Payan MD 04/30/2025 Cardiology Conference [facility] Cardiac Catheterization Lab [address] [place] [address] Samira Ladd RN 04/27/2025 Orders Only [facility] Cardiac Catheterization Lab [address] [place] [address] Roosevelt Payan MD Severe aortic stenosis (Primary Dx) 04/26/2025 1:15 PM ELECT EQUIP MAINT ENG Office Visit [facility] Cardiology [address] [place] [phone] Roosevelt Payan MD Nonrheumatic aortic valve stenosis (Primary Dx); Coronary artery disease involving [place] coronary artery of [place] heart without angina pectoris; Mixed hyperlipidemia; Primary hypertension 04/26/2025 Telephone [facility] Cardiac Catheterization Lab [address] [place] [address] Roosevelt Payan MD 04/20/2025 10:15 AM CDT Ancillary Procedure [facility] Cardiology [address] [place] [phone] Coronary artery disease involving [place] coronary artery of [place] heart without angina pectoris; Nonrheumatic aortic valve stenosis from Last 3 Months Surgical History Surgery Date Site/Laterality Comments OTHER SURGICAL HISTORY Coronary Stent Placement LAD stent APPENDECTOMY HYSTERECTOMY LEG TENDON SURGERY Left related to polio CARDIAC CATHETERIZATION 05/11/2025 N/A Procedure: CORONARY ANGIOGRAPHY [id number]; Surgeon: Roosevelt Payan MD; Location: CARDIAC MARKETING SUPPORT ASSISTANT; Service: Cardiovascular; Laterality: N/A; Medical devices from this surgery are in the Medical Devices section. CARDIAC CATHETERIZATION 05/11/2025 N/A Procedure: PERIPHERAL ANGIOGRAPHY; Surgeon: Roosevelt Payan MD; Location: CARDIAC MARKETING SUPPORT ASSISTANT; Service: Cardiovascular; Laterality: N/A; Medical devices from this surgery are in the Medical Devices section. CARDIAC CATHETERIZATION 05/11/2025 N/A Procedure: IVUS/OCT CORS OR GRAFTS, FIRST VESSEL (+) [id number]; Surgeon: Roosevelt Payan MD; Location: CARDIAC MARKETING SUPPORT ASSISTANT; Service: Cardiovascular; Laterality: N/A; Medical devices from this surgery are in the Medical Devices section. CARDIAC CATHETERIZATION 05/11/2025 N/A Procedure: PCI ELI MAJOR CORONARY [id number] - [id number]; Surgeon: Roosevelt Payan MD; Location: CARDIAC MARKETING SUPPORT ASSISTANT; Service: Cardiovascular; Laterality: N/A; Medical devices from this surgery are in the Medical Devices section. Medical History Medical History Date Comments Cardiovascular disease Coronary Artery Disease Hypertension Hypertension Hx Other Medical Chronic Anxiety Hx Other Medical DVT: LUE Hypothyroidism Hypothyroidism Anxiety Panic attacks Irritable bowel syndrome Depression Nonrheumatic aortic (valve) stenosis Intermittent urinary incontinence Family History Medical History Relation Name Comments No Known Problems Father No Known Problems Mother Relation Name Status Comments Father Mother Social History Tobacco Use Types Packs/Day Years Used Date Smoking Tobacco: Never Smokeless Tobacco: Never Tobacco Cessation:Counseling Given: Not Answered Alcohol Use Standard Drinks/Week Comments Not Currently 0 (1 standard drink = 0.6 oz pur e alcohol) PHQ-2 Answer Date Recorded PHQ-2 Score 1 05/28/2019 AUDIT-C Answer Date Recorded Q1: How often do you have a drink containing alcohol? Never 05/11/2025 Q2: How many drinks containi ng alcohol do you have on a typical day when you are drinking? Patient does not drink Q3: How often do you have si x or more drinks on one occasion? Never 05/11/2025 Personal Safety Answer Date Recorded Have you ever been in or are you currently in a harmful physical or emotional relationship or is someone making you feel afraid or unsafe? Denies 05/11/2025 Comments Unknown Sex and Gender Information Value Date Recorded Sex Assigned at Not on file Legal Sex 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 ELECT EQUIP MAINT ENG Gender Identity Not on file Sexual Orientation Not on file Last Filed Vital Signs Vital Sign Reading Time Taken Comments Blood Pressure 130/72 05/12/2025 8:02 AM ELECT EQUIP MAINT ENG Pulse 75 05/12/2025 8:02 AM ELECT EQUIP MAINT ENG Temperature 36.5 C (97.7 F) 05/12/2025 8:02 AM ELECT EQUIP MAINT ENG Respiratory Rate 19 05/12/2025 8:02 AM ELECT EQUIP MAINT ENG Oxygen Saturation 95% 05/12/2025 8:02 AM ELECT EQUIP MAINT ENG Inhaled Oxygen Concentration - - Weight 62.6 kg (138 lb) 05/11/2025 7:56 AM ELECT EQUIP MAINT ENG Height 165.1 cm (5' 5) 05/11/2025 7:56 AM ELECT EQUIP MAINT ENG Body Mass Index 22.96 05/11/2025 7:56 AM ELECT EQUIP MAINT ENG Plan of Treatment Health Maintenance Due Date Last Done Comments Osteoporosis Screening-Bone Density Scan 1940 Hepatitis B Screening 1958 Zoster Vaccine (1 of 2) 1988 Well Visit 65+ 11/17/2003 Depression Screening 05/28/2020 05/28/2019 Covid-19 Vaccine (4 - 2024-2 6 season) 2025 06/16/2021, 09/25/2020, 08/28/2020 Influenza Vaccine (#1) 2025 , 04/29/2020, 04/21/2019, Additional history exists Fall Risk Assessment 05/12/2026 05/12/2025, 03/20/20 21 DTaP/Tdap/Td Vaccine (2 - Td or Tdap) 11/30/2033 12/01/2023 Pneumococcal vaccine 65+ Completed 01/19/2022, 06/2014 Medical Devices Implanted Type Area Interactive Media Marketing Specialist Device Identifier Shelf Expiration Date Model / Serial / Lot Medtronic Card Vasc Surgery 4.5 X 22mm Julia Deridder Rx Coronary Stent [id number] - [id number] Implanted:Qty: 1 on 05/11/2025 by Roosevelt Payan MD at [facility] Medtronic Card Vasc Surgery 04/08/2027 [id number] / / [id number] Medtronic Card Vasc Surgery 4.0 X 08mm Julia Deridder Rx Coronary Stent [id number] - [id number] Implanted:Qty: 1 on 05/11/2025 by Roosevelt Payan MD at [facility] Medtronic Card Vasc Surgery 04/25/2027 [id number] / / [id number] [employer] Device Closure Vascade Od5 Fr Femoral Artery [id number] - [id number] Implanted:Qty: 1 on 05/11/2025 by Roosevelt aPyan MD at [facility] [employer] 11/24/2026 [id number] / / [id number] Procedures Procedure Name Priority Date/Time Associated Diagnosis Comments EGFR Routine 05/12/2025 4:01 AM ELECT EQUIP MAINT ENG BASIC METABOLIC PANEL Routine 05/12/2025 4:01 AM ELECT EQUIP MAINT ENG ECG 12-LEAD STAT 05/11/2025 11:11 AM ELECT EQUIP MAINT ENG ELI MAJOR CORONARY Routine 05/11/2025 10 :22 AM ELECT EQUIP MAINT ENG Nonrheumatic aortic valve stenosis CORONARY OCT, 1ST VESSEL Routine 05/11/2025 10:22 AM ELECT EQUIP MAINT ENG Nonrheumatic aortic valve stenosis LEFT CORONARY ANGIOGRAPHY Routine 05/11/2025 10:22 AM ELECT EQUIP MAINT ENG Nonrheumatic aortic valve stenosis PERIPHERAL ANGIOGRAPHY Routine 10:22 AM ELECT EQUIP MAINT ENG Nonrheumatic aortic valve stenosis MODERATE SEDATION FIRST 15MIN 5+ YEAR [id number] 05/11/2025 9:01 AM ELECT EQUIP MAINT ENG Nonrheumatic aortic valve stenosis MODERATE SEDATION SAME MD BOOKER ADDL 15 MIN [id number] 05/11/2025 9:01 AM ELECT EQUIP MAINT ENG Nonrheumatic aortic valve stenosis EGFR Routine 05/11/2025 7:40 AM ELECT EQUIP MAINT ENG CBC WITHOUT DIFFERENTIAL Routine 05/11/2025 7:40 AM ELECT EQUIP MAINT ENG BASIC METABOLIC PANEL Routine 05/11/2025 7:40 AM ELECT EQUIP MAINT ENG TRANSTHORACIC ECHO (TTE) COMPLETE W DOPPLER/CF WO CONTRAST Routine 04/20/2025 11:17 AM CDT Coronary artery disease involving [place] coronary artery of [place] heart without angina pectoris Nonrheumatic aortic valve stenosis from Last 3 Months Results * eGFR (05/12/2025 4:01 AM ELECT EQUIP MAINT ENG) eGFR 85 >=60 mL/min/1. 73 m2 Comment: Interpretive Data Reference Interval Normal >/= 90 mL/min/1.73m2 Mildly decreased* 60 - 89 mL/min/1.73m2 Mildly to moderately decreased 45 - 59 mL/min/1.73m2 Moderately to severely decreased 30 - 44 mL/min/1.73m2 Severely decreased 15 - 29 mL/min/1.73m2 Kidney Failure < 15 mL/min/1.73m2 *Relative to young adult level Estimated glomerular filtration rate is determined by the 2020 CKD-EPI equation recommended by the National Kidney Foundation (A Unifying Approach to GFR Estimation: Recommendations of the NKF-ASK Task Force on Reassessing the Inclusion of Race in Diagnosing Kidney Disease, JASN 2020). The CKD-EPI equation should not be used for patients with unstable renal function and has not been validated in children and those over 70. Current interpretive data was last reviewed 2021. Blood 05/12/2025 4:01 AM ELECT EQUIP MAINT ENG 05/12/2025 4:38 AM ELECT EQUIP MAINT ENG us Roosevelt Payan MD LAB BLOOD ORDERABLES Final Result [facility] [address] [place] [address] * Basic metabolic panel (05/12/2025 4:01 AM ELECT EQUIP MAINT ENG) Sodium 136 135 - 145 mmol/L Potassium, pl 4.0 3.3 - 4.9 mmol/L [facility] Chloride 102 97 - 110 mmol/L [facility] CH CO2 23 22 - 32 mmol/L [facility] CH Anion gap 11 2 - 15 mmol/L [facility] BUN 15 6 - 25 mg/dL [facility] Creatinine 0.66 0.60 - 1.10 mg/dL [facility] Glucose 97 70 - 199 mg/dL [facility] Comment: Interpretive Data Fasting glucose >/= 126 mg/dl is diagnostic for diabetes. Fasting is defined as no caloric intake for at least 8 hours. Fasting glucose between 100 mg/dl to 125 mg/dl is diagnostic of prediabetes. In a patient with classic symptoms of hyperglycemia or hyperglycemic crisis, a random glucose >/= 200 mg/dl is diagnostic for diabetes. In the absence of unequivocal hyperglycemia, results should be confirmed by repeat testing. The classification and Diagnosis of Diabetes Diabetes Care 2021; 46: S19-S40. Current interpretive data was last revised 2022. Calcium 8.9 8.5 - 10.3 mg/dL [facility] Blood 05/12/2025 4:01 AM ELECT EQUIP MAINT ENG 05/12/2025 4:38 AM ELECT EQUIP MAINT ENG Roosevelt Payan MD LAB BLOOD ORDERABLES Final Result Performing Organization Address [facility] Co de Phone Number [facility] [address] [place] [address] * ECG 12 lead (05/11/2025 11:11 AM ELECT EQUIP MAINT ENG) 05/11/2025 11:1 1 AM ELECT EQUIP MAINT ENG Narrative [facility] - 05/12/2025 1:27 AM ELECT EQUIP MAINT ENG Vent Rate: 73 bpm RR Interval: 816 msec DE Interval: 171 msec QRS Duration: 93 msec QT Interval: 395 msec QTC Interval: 421 msec P-R-T [place]: 151 - 147 - 149 degrees IMPRESSION: SINUS RHYTHM POSSIBLE LEFT ATRIAL ENLARGEMENT [-0.1mV P-WAVE IN V1/V2] LEFT POSTERIOR FASCICULAR BLOCK [QRS AXIS > 109, INFERIOR Q] ABNORMAL ECG Electronically Signed By: Devin Taylor MD Roosevelt Payan MD ECG ORDERABLES Deyanira l Result Performing Organization Address [facility] Co de Phone Number [facility] kinkon [facility] * PERIPHERAL ANGIOGRAPHY, LEFT CORONARY ANGIOGRAPHY, CORONARY OCT, 1ST VESSEL, ELI MAJOR CORONARY (05/11/2025 10:22 AM ELECT EQUIP MAINT ENG) Anatomical Region Laterality Modality X-Ray Angiograph y Addenda Addendum by Roosevelt Payan MD on 05/11/2025 10:47 AM ELECT EQUIP MAINT ENG CARDIAC CATHETERIZATION REPORT Enma Garza IP ENCOUNTER: @[email or web address]@ Date of Procedure: 05/11/2025 BIRTHDATE: 1940 [employer]EL[employer] 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 She was found to have severe aortic stenosis. Dyspnea on exertion. Patient is here for workup prior to TAVR PROCEDURES PERFORMED: Moderate sedation that started at 9:16 a.m. and ended at 10:22 a.m. with total duration 66 minutes using 2mg of Versed and 50mcg of fentanyl. The registered nurse was jessica young. Selective left and right coronary angiogram. Peripheral angiogram of the distal aorta, bilateral common, external iliacs and bilateral common femoral arteries. Intravascular ultrasound of RCA . Deployment of drug-eluting stent 4.5 x 22 julia covering mid RCA. Deployed drug-eluting stent 4 x 8 julia distal to the previous stent and an overlapping fashion. The overlapping fashion was expanded with the stent balloon a 21 mm Hg corresponding to size 4.5 mm. Right common femoral arterial angiogram. Deployment a 5 [place] Vascade closure device. FINDINGS: Left main unremarkable. Lad has mid 20% chest prior to the stents distally. Patent stents distal LAD. Small to medium diagonal branch with minimal irregularities. Left circumflex artery is large with 20% at the ostium. In the mid segment borderline lesion 50 60%. Right coronary artery is large and dominant and mid 90%. Peripheral angiogram shows no significant disease in the right common, external iliacs and bilateral common femoral arteries. The right common femoral is larger than the left. Opening arterial pressure 125/51 and closing pressure 121/60. Intravascular ultrasound of RCA shows proximal RCA measures about 5 mm and in the mid segment 4.5mm. COMPLICATIONS: None ESTIMATED BLOOD LOSS: 10 mL PROCEDURAL DESCRIPTION: After informed consent patient was brought into the clinical laboratory technologist where she was draped and prepped in the usual manner. Moderate sedation was given and the right groin infiltrated using 1% lidocaine. Five [place] sheath was obtained using micropuncture needle and modified Seldinger technique. Selective left coronary angiogram was done using JL4 catheter with the tip of the catheter placed in the left main coronary artery. Selective right coronary angiogram was done using five [place] 3D RCA catheter with the tip of the catheter placed in the right coronary artery. After that 5 [place] pigtail catheter was advanced to distal aorta peripheral angiogram was done. Right common femoral arterial angiogram was done and deployed 5 [place] Vascade closure device. INTERVENTION -Through the 5 [place] right femoral sheath we took a 5 [place] guide catheter 3DRC and engage in the RCA. After that coronary wire minamo was advanced to distal RCA. Subsequently balloon angioplasty was done using 3.5 x 15 balloon. Intravascular ultrasound was done. Then we took the balloon 4 x 15 and inflated it in the mid RCA and normal pressure for 20 seconds. Subsequently deployed drug-eluting stent julia 4.5 x 22 covering mid RCA. I noticed distal to the stent that there is an area of buckling of the coronary artery and was a concern about future shear forces creating a dissection and therefore I decided to cover it with a stent 4 x 8 julia which was deployed in overlapping fashion to the previous stent and distal to it. Subsequently I took the stent balloon and inflated it to 21 atmospheres in the overlap region corresponded to sinus 4.5 mm. Access site: Right common femoral artery. Hemostasis: 5 [place] Vascade closure device. CONCLUSIONS Successful stenting of mid RCA using 2 drug-eluting stents. Borderline lesion mid circumflex artery. Patent stents LAD PLAN Proceed with the plans for TAVR. us Roosevelt Payan MD CV CARDIAC CATH PROC EDURES Edited Result - Final * eGFR (05/11/2025 7:40 AM ELECT EQUIP MAINT ENG) eGFR 80 >=60 mL/min/1. 73 m2 Comment: Interpretive Data Reference Interval Normal >/= 90 mL/min/1.73m2 Mildly decreased* 60 - 89 mL/min/1.73m2 Mildly to moderately decreased 45 - 59 mL/min/1.73m2 Moderately to severely decreased 30 - 44 mL/min/1.73m2 Severely decreased 15 - 29 mL/min/1.73m2 Kidney Failure < 15 mL/min/1.73m2 *Relative to young adult level Estimated glomerular filtration rate is determined by the 2020 CKD-EPI equation recommended by the National Kidney Foundation (A Unifying Approach to GFR Estimation: Recommendations of the NKF-ASK Task Force on Reassessing the Inclusion of Race in Diagnosing Kidney Disease, JASN 2020). The CKD-EPI equation should not be used for patients with unstable renal function and has not been validated in children and those over 70. Current interpretive data was last reviewed 2021. Blood 05/11/2025 7:40 AM ELECT EQUIP MAINT ENG 05/11/2025 7:56 AM ELECT EQUIP MAINT ENG us Roosevelt Payan MD LAB BLOOD ORDERABLES Final Result [facility] [address] [place] [address] * CBC without differential (05/11/2025 7:40 AM ELECT EQUIP MAINT ENG) WBC 7.02 3.80 - 9.90 K/cumm Hgb 13.7 11.9 - 15.5 g/dL [facility] Hct 42.1 35.6 - 45.5 % [facility] Plt 238 150 - 400 K/cumm [facility] MPV 11.3 9.1 - 12.3 fL [facility] RBC 4.71 3.90 - 5.20 M/cumm [facility] MCV 89.4 81.3 - 96.4 fL [facility] MCH 29.1 27.1 - 33.3 pg [facility] MCHC 32.5 32.3 - 35.7 g/dL [facility] RDW CV 12.6 11.1 - 14.9 % [facility] RDW SD 41.9 35.7 - 48.1 fL [facility] NRBC abs 0.00 0.00 - 0.01 K/cumm [facility] Blood 05/11/2025 7:40 AM ELECT EQUIP MAINT ENG 05/11/2025 7:57 AM ELECT EQUIP MAINT ENG Narrative [facility] - 05/11/2025 8:12 AM ELECT EQUIP MAINT ENG If most recent labs were drawn prior to 4 AM, draw only prior to initiating procedure. Roosevelt Payan MD LAB BLOOD ORDERABLES Final Result Performing Organization Address City/[facility]/ZIP Co de Phone Number NELLA NAGEL [address] [place] [address] * Basic metabolic panel (05/11/2025 7:40 AM ELECT EQUIP MAINT ENG) Sodium 136 135 - 145 mmol/L Potassium, pl 4.5 3.3 - 4.9 mmol/L [facility] Chloride 102 97 - 110 mmol/L [facility] CO2 23 22 - 32 mmol/L [facility] Anion gap 11 2 - 15 mmol/L [facility] BUN 21 6 - 25 mg/dL [facility] Creatinine 0.73 0.60 - 1.10 mg/dL [facility] Glucose 111 70 - 199 mg/dL [facility] Comment: Interpretive Data Fasting glucose >/= 126 mg/dl is diagnostic for diabetes. Fasting is defined as no caloric intake for at least 8 hours. Fasting glucose between 100 mg/dl to 125 mg/dl is diagnostic of prediabetes. In a patient with classic symptoms of hyperglycemia or hyperglycemic crisis, a random glucose >/= 200 mg/dl is diagnostic for diabetes. In the absence of unequivocal hyperglycemia, results should be confirmed by repeat testing. The classification and Diagnosis of Diabetes Diabetes Care 2021; 46: S19-S40. Current interpretive data was last revised 2022. Calcium 9.4 8.5 - 10.3 mg/dL [facility] Blood 05/11/2025 7:40 AM ELECT EQUIP MAINT ENG 05/11/2025 7:56 AM ELECT EQUIP MAINT ENG Roosevelt Payan MD LAB BLOOD ORDERABLES Final Result Performing Organization Address City/[facility]/ZIP Co de Phone Number NELLA NAGEL [address] [place] [address] * TRANSTHORACIC ECHO (TTE) COMPLETE W DOPPLER/CF WO CONTRAST (04/20/2025 11:17 AM CDT) Estimated EF 70-75 % CONS SCIMAGE EF Mod BP 77 % CONS SCIMAGE Anatomical Region Laterality Modality Ultrasound 04/20/2025 10:3 0 AM CDT Narrative 04/20/2025 12:44 PM CDT [facility] Medical [facility] Cardiology [address], [place] [address] [address], [place] [address] P:[phone] P:[phone] Echocardiographic Report Patient Name: ENMA GARZA : 1940 Study Date: 04/20/2025 10:30:18 AM Sex: F Insole Cementer: Rocio Breaux)(CT), [facility] Location: [facility] Provider: ROOSEVELT PAYAN Height(Cm): 165 BSA: 1.69 Weight(Kg): 62.6 Heart Rate: 75 BP: 130 / 60 Quality: Good Order Provider: ROOSEVELT PAYAN PROCEDURES: Echocardiographic Report: Transthoracic echocardiogram with complete 2D, M-Mode, and color Doppler examination. With Strain Analysis. INDICATIONS: I25.10 Atherosclerotic heart disease of [place] coronary artery without angina pectoris and I35.0 Nonrheumatic aortic (valve) stenosis. MEASUREMENTS: 2D/MM Value Range Doppler Value Range EF Mod BP 77 % [ 54 - 74 ] CISCO Vmax 1.01 cm2 [ 2.00 - 4.00 ] Estimated EF 70-75 % AV Mean PG 29 mmHg LV GLS -19.00 % AV Peak Tony 3.29 m/s [ 1.00 - 1.70 ] LVIDd 2D 3.11 cm [ 3.80 - 5.20 ] AV Peak PG 43 mmHg LVIDs 2D 1.73 cm [ 2.20 - 3.50 ] AV VTI 81.47 cm LVPWd 2D 1.30 cm [ 0.60 - 0.90 ] LVOT Diam 2.00 cm [ 1.70 - 2.10 ] IVSd 2D 1.48 cm [ 0.60 - 0.90 ] LVOT Peak Tony 1.06 m/s [ 0.70 - 1.10 ] AoR Diam 2D 2.97 cm [ 2.70 - 3.30 ] LVOT VTI 23.53 cm LA Volume 26.67 ml [ 22.00 - 52.00 ] PV Peak Tony 0.79 m/s [ 0.40 - 0.80 ] LA Volume Index 16 cc/m2 [ 16 - 28 ] TR Peak Tony 2.45 m/s [ 1.00 - 2.80 ] RA Volume 10.70 ml TR Peak PG 24 mmHg RV S` 9.39 mmHg Tapse 2.23 cm [ 1.71 - 5.00 ] 2D/MM Value Range Doppler Value Range - FINDINGS: Interpretation Site: Exam was interpreted at [facility]. Left Ventricle: Normal left ventricular systolic function. No focal wall motion abnormalities. Normal left ventricular size. Severe concentric left ventricular hypertrophy. Impaired diastolic relaxation Grade I. Ejection fraction is measured at 77 %. Ejection Fraction is visually estimated to be 70-75 %. Global Longitudinal Strain is -19 %. GLS is normal. Right Ventricle: Normal right ventricular size. Normal right ventricular systolic function. Left Atrium: There is mild enlargement of left atrium. Right Atrium: The right atrium is normal in size. Atrial Septum: Normal atrial septum. Mitral Valve: Mitral valve leaflets appear mildly thickened. Severe mitral annular calcification. Moderate mitral valve regurgitation. There is no hemodynamically significant mitral stenosis by Doppler. Aortic Valve: Moderate to severe aortic stenosis. Peak Velocity of 3.30 m/s. Mean gradient of 29.0 mmHg. Valve area of 1 cm2. Aortic cusps appear severely calcified. Trileaflet aortic valve. Mild aortic valve regurgitation. Tricuspid Valve: Normal appearance of the tricuspid valve. Normal right ventricular systolic pressure. Estimated peak RVSP is 30-35 mmHg. Mild tricuspid regurgitation. Pulmonic Valve: Normal appearance of the pulmonic valve. No pulmonic stenosis. Trivial regurgitation in the pulmonic valve. Pericardium: Normal pericardium with no significant pericardial effusion. Aorta: No aortic root dilation. Mild aortic root calcification. IVC: Normal size and normal respiratory collapse consistent with normal right atrial pressure (<5 mmHg). CONCLUSIONS: Normal left ventricular systolic function. No focal wall motion abnormalities. Normal left ventricular size. Severe concentric left ventricular hypertrophy. Impaired diastolic relaxation Grade I. Ejection fraction is measured at 77 %. Ejection Fraction is visually estimated to be 70-75 %. Global Longitudinal Strain is -19 %. GLS is normal. There is mild enlargement of left atrium. Mitral valve leaflets appear mildly thickened. Severe mitral annular calcification. Moderate mitral valve regurgitation. Moderate to severe aortic stenosis. Peak Velocity of 3.30 m/s. Mean gradient of 29.0 mmHg. Valve area of 1 cm2. Aortic cusps appear severely calcified. Trileaflet aortic valve. Mild aortic valve regurgitation. Mild tricuspid regurgitation. Normal sinus rhythm. Electronically Signed By: Tony Neville MD 04/20/2025 12:44:18 PM CDT Procedure Note Tony Neville MD - 04/20/2025 [facility] [address] [facility] [address], [place] [address] [address] [facility] [address] [place], [place] [address] P:[phone] P:[phone] Echocardiographic Report Patient Name: ENMA GARZA : 1940 Study Date: 04/20/2025 10:30:18 AM Sex: F Insole Cementer: Rocio Padron (Calvin)(CT), [facility] Location: [facility] Provider: ROOSEVELT PAAYN Height(Cm): 165 BSA: 1.69 Weight(Kg): 62.6 Heart Rate: 75 BP: 130 / 60 Quality: Good Order Provider: ROOSEVELT PAYAN PROCEDURES: Echocardiographic Report: Transthoracic echocardiogram with complete 2D, M-Mode, and color Dopplerexamination. With Strain Analysis. 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 MEASUREMENTS: 2D/MM Value Range Doppler ValueRange EF Mod BP 77 % [ 54 - 74 ] CISCO Vmax 1.01cm2 [ 2.00 - 4.00 ] Estimated EF 70-75 % AV Mean PG 29mmHg LV GLS -19.00 % AV Peak Tony 3.29m/s [ 1.00 - 1.70 ] LVIDd 2D 3.11 cm [ 3.80 - 5.20 ] AV Peak PG 43mmHg LVIDs 2D 1.73 cm [ 2.20 - 3.50 ] AV VTI 81.47cm LVPWd 2D 1.30 cm [ 0.60 - 0.90 ] LVOT Diam 2.00cm [ 1.70 - 2.10 ] IVSd 2D 1.48 cm [ 0.60 - 0.90 ] LVOT Peak Tony 1.06m/s [ 0.70 - 1.10 ] AoR Diam 2D 2.97 cm [ 2.70 - 3.30 ] LVOT VTI 23.53cm LA Volume 26.67 ml [ 22.00 - 52.00 ] PV Peak Tony 0.79m/s [ 0.40 - 0.80 ] LA Volume Index 16 cc/m2 [ 16 - 28 ] TR Peak Tony 2.45m/s [ 1.00 - 2.80 ] RA Volume 10.70 ml TR Peak PG 24mmHg RV S` 9.39 mmHg Tapse 2.23 cm [ 1.71 - 5.00 ] 2D/MM Value Range Doppler ValueRange - FINDINGS: Interpretation Site: Exam was interpreted at [facility]. Left Ventricle: Normal left ventricular systolic function. No focal wall motionabnormalities. Normal left ventricular size. Severe concentric left ventricular hypertrophy.Impaired diastolic relaxation Grade I. Ejection fraction is measured at 77 %. EjectionFraction is visually estimated to be 70-75 %. Global Longitudinal Strain is -19 %. GLS isnormal. Right Ventricle: Normal right ventricular size. Normal right ventricular systolicfunction. Left Atrium: There is mild enlargement of left atrium. Right Atrium: The right atrium is normal in size. Atrial Septum: Normal atrial septum. Mitral Valve: Mitral valve leaflets appear mildly thickened. Severe mitral annularcalcification. Moderate mitral valve regurgitation. There is no hemodynamicallysignificant mitral stenosis by Doppler. Aortic Valve: Moderate to severe aortic stenosis. Peak Velocity of 3.30 m/s. Meangradient of 29.0 mmHg. Valve area of 1 cm2. Aortic cusps appear severely calcified.Trileaflet aortic valve. Mild aortic valve regurgitation. Tricuspid Valve: Normal appearance of the tricuspid valve. Normal right ventricularsystolic pressure. Estimated peak RVSP is 30-35 mmHg. Mild tricuspid regurgitation. Pulmonic Valve: Normal appearance of the pulmonic valve. No pulmonic stenosis. Trivialregurgitation in the pulmonic valve. Pericardium: Normal pericardium with no significant pericardial effusion. Aorta: No aortic root dilation. Mild aortic root calcification. IVC: Normal size and normal respiratory collapse consistent with normal rightatrial pressure (<5 mmHg). CONCLUSIONS: Normal left ventricular systolic function. No focal wall motionabnormalities. Normal left ventricular size. Severe concentric left ventricular hypertrophy.Impaired diastolic relaxation Grade I. Ejection fraction is measured at 77 %. EjectionFraction is visually estimated to be 70-75 %. Global Longitudinal Strain is -19 %. GLS isnormal. There is mild enlargement of left atrium. Mitral valve leaflets appear mildly thickened. Severe mitral annularcalcification. Moderate mitral valve regurgitation. Moderate to severe aortic stenosis. Peak Velocity of 3.30 m/s. Meangradient of 29.0 mmHg. Valve area of 1 cm2. Aortic cusps appear severely calcified.Trileaflet aortic valve. Mild aortic valve regurgitation. Mild tricuspid regurgitation. Normal sinus rhythm. Electronically Signed By: Tony Neville MD 04/20/2025 12:44:18 PM CDT Roosevelt Payan MD CV ECHO PROCEDURES F inal Result from Last 3 Months Insurance MEDICARE [facility]IC[facility] MEDIC[facility] SUPPLEMENT [facility] Advance Directives For more information, please contact: [phone] * Full Code (Latest Code Status on File) Date Activated Date Inactivated Comments 05/11/2025 10:54 AM 05/12/2025 5:36 PM Care Teams Long Term Relationship Specialty Start Date End Date Jose A Lakhani DO [address] [place] [address] PCP - General Family Medicine 05/15/23
--- OUTSIDE RECORDS SUMMARY | 2025-05-18 11:13 | XMS_ITS | Encounter Summary ---
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
--- OUTSIDE RECORDS SUMMARY | 2025-05-18 11:13 | XMS_ITS | Clinical Summary ---
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 No 05/27/2023 Comments No Sex and Gender Information Value Date Recorded Sex Assigned at Not on file Legal Sex Female 8:54 PM CDT Gender Identity Not on file Sexual Orientation Not on file Last Filed Vital Signs Vital Sign Reading Time Taken Comments Blood Pressure 132/70 07/26/2023 12:50 PM AUTO BODY REPAIRMAN Pulse 73 07/26/2023 12:50 PM AUTO BODY REPAIRMAN Temperature 36.7 C (98 F) 05/30/2023 9:00 AM AUTO BODY REPAIRMAN Respiratory Rate 16 07/26/2023 12:5 0 PM AUTO BODY REPAIRMAN Oxygen Saturation 97% 07/26/2023 12: 50 PM AUTO BODY REPAIRMAN Inhaled Oxygen Concentration - - Weight 64.3 kg (141 lb 12.8 oz) 024 12:50 PM AUTO BODY REPAIRMAN Height 165.1 cm (5' 5) 07/26/2023 12:5 0 PM AUTO BODY REPAIRMAN Body Mass Index 23.6 07/26/2023 12:50 PM AUTO BODY REPAIRMAN Plan of Treatment Health Maintenance Due Date [...] age to complete this topic Insurance [place]IC[place] [address] [address] [id number] [facility] Advance Directives * Full Code (Latest Code Status on File) Date Activated Date Inactivated Comments 05/27/2023 2:16 PM 05/30/2023 1:22 PM * Full Code Date Activated Date Inactivated Comments 08/31/2021 2:52 PM 09/02/2021 1:52 PM Care Teams Automatic Drilling Machine Operator Relationship Specialty Start Date End Date Jose A Lakhani DO [address] [place] [address] PCP - General FAMILY PRACTICE 05/24/23
--- OUTSIDE RECORDS SUMMARY | 2025-05-18 11:13 | XMS_ITS | Encounter Summary ---
Author Organization [facility] Address [address] [place] [address] Care Team Providers Care Defective Cigarette Slitter Name Role Phone Jose A Lakhani DO Primary Care Provider Encounter Details Date Type Department Care Team (Late st Contact Info) Description 04/30/2025 Cardiology Conference [facility] Cardiac Catheterization Lab [address] [place] [address] Samira Ladd RN Social History Tobacco Use Types Packs/Day Years Used Date Smoking Tobacco: Never Smokeless Tobacco: Never Alcohol Use Standard Drinks/Week Comments Yes 0 (1 standard drink = 0.6 oz pur e alcohol) PHQ-2 Answer Date Recorded PHQ-2 Score 1 05/28/2019 Comments Unknown Sex and Gender Information Value Date Recorded Sex Assigned at Not on file 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
== END 2025-05-18 10:06 | disposition home or self-care (01) ==
LOC: CHSLAB 10:06
PROVIDERS: PCP Nurse Practitioner Family; Visit Provider Nurse Practitioner Family
DX: N39.0 Urinary tract infection, site not specified (principal); R82.90 Unspecified abnormal findings in urine
CPT/HCPCS: 81001; 87077; 87086; 87088; 87186